=== PATIENT | male | born 1945 | race Caucasian/White ===

== ENCOUNTER 2020-06-21 16:05 | Outpatient (REF) | payer MEDICARE, MEDICAID, SELFPAY ==
--- NOTE | ~2020-06-21 | XR_ITS ---
EXAMINATION: XR TOES, LEFT CLINICAL INFORMATION: Non-thermal blister great toe. COMPARISON: None TECHNIQUE: 3 views of the left toes were obtained. FINDINGS: The toes are superimposed on the lateral view. There is no visible acute or healing fracture, dislocation, destructive process. There is no periostitis. No erosive changes. Mild degenerative changes present at the first MTP joint. There are atherosclerotic calcifications vasculature. XR/XR toe LT min 2V IMPRESSION: No fracture or destructive process. No periostitis.
== END 2020-06-21 16:06 | disposition home or self-care (01) ==
LOC: HO.HMGCX 16:05
PROVIDERS: PCP Internal Medicine; Visit Provider Nurse Practitioner Family
DX: E11.22 Type 2 diabetes mellitus with diabetic chronic kidney disease (principal); L08.9 Local infection of the skin and subcutaneous tissue, unspecified; S90.422A Blister (nonthermal), left great toe, initial encounter; X58.XXXA Exposure to other specified factors, initial encounter; N18.1 Chronic kidney disease, stage 1
CPT/HCPCS: 73660

== ENCOUNTER 2021-05-02 12:49 | Outpatient (REF) | payer OTHER, SELFPAY ==
--- NOTE | ~2021-05-02 | XR_ITS ---
EXAMINATION: XR FOOT, LEFT CLINICAL INFORMATION: Unspecified open wound COMPARISON: X-ray 06/21/2020 TECHNIQUE: AP, lateral, and oblique views of the left foot. FINDINGS: No evidence of acute fracture or dislocation. On the AP and oblique views, no erosive, destructive changes identified. No periostitis evident.. The toes are overlapping on the lateral projection. There is extensive vascular calcification. Tarsometatarsal alignment is maintained. Mild degeneration in some of the IP joints of the toes. Calcaneal spurring. XR/XR foot LT min 3V IMPRESSION: No radiographic evidence of acute fracture, erosive or destructive changes. No periosteal changes evident. If there is clinical concern for osteomyelitis, MRI would be more sensitive.
[2021-05-02 13:03] LABS: MANUAL DIFF FLAG NO
[2021-05-02 13:37] LABS: Basophils Absolute Auto 0.1 X10*3/uL (0.0-0.2); Basophils Percent Auto 1.6 % (0-2); Eosinophils Absolute Auto 1.1 X10*3/uL (0.0-0.4); Eosinophils Percent Auto 16.5 % (0-4); Hematocrit 34.7 % (42.0-52.0); Hemoglobin 10.7 g/dl (14.0-18.0); Imm Gran Abs Auto 0.03 X10*3/uL (0.00-0.03); Imm Gran Pct Auto 0.5 % (0.0-0.4); Lymphocytes Absolute Auto 1.1 X10*3/uL (1.2-4.9); Lymphocytes Percent Auto 17.4 % (20-40); Mean Corpuscular HGB Conc 30.8 g/dl (31.0-36.0); Mean Corpuscular Hemoglobin 31.1 pg (27.0-33.0); Mean Corpuscular Volume 100.9 fL (80.0-98.0); Monocytes Absolute Auto 0.3 X10*3/uL (0.1-1.2); Monocytes Percent Auto 5.3 % (2-11); Neutrophils Absolute Auto 3.8 x10*3/uL (2.0-8.3); Neutrophils Percent Auto 58.7 % (45-73); Platelet Count 222 X10*3/uL (160-400); Red Blood Count 3.44 X10*6/uL (4.60-5.80); Red Cell Distribution Width 16.9 % (11.0-16.0); White Blood Count 6.4 X10*3/uL (4.8-10.8)
[2021-05-02 14:25] LABS: Alanine Aminotransferase 13 U/L (0-40); Albumin Level 3.3 g/dL (3.5-5.0); Alkaline Phosphatase 44 U/L (39-117); Anion Gap 16 (12-20); Aspartate Amino Transferase 21 U/L (5-37); Bilirubin Total 0.7 mg/dL (0.0-1.0); Blood Urea Nitrogen 40 mg/dL (9-16); Calcium 9.1 mg/dL (8.4-10.2); Carbon Dioxide 31 mmol/L (22-29); Chloride 98 mmol/L (96-108); Cholesterol 139 mg/dL; Estimated Glomerular Filt Rate 10; Glucose Random 133 mg/dL (60-115); HDL Cholesterol 51 mg/dL; LDL Cholesterol Calculated 73 mg/dl; Potassium 4.9 mmol/L (3.3-5.1); Sodium 140 mmol/L (135-145); Total Protein 6.9 g/dL (6.5-8.0); Triglycerides 75 mg/dL
[2021-05-02 16:06] LABS: Creatinine Urine 55.83 mg/dL
[2021-05-06 11:46] LABS: Vitamin D 25-OH, D2 51 ng/mL; Vitamin D 25-OH, D3 6 ng/mL; Vitamin D 25-OH, Total 57 ng/mL (30-100)
== END 2021-05-02 12:50 | disposition home or self-care (01) ==
LOC: HO.XRAY 12:49
PROVIDERS: Absent Provider Internal Medicine; PCP Internal Medicine; Visit Provider Nurse Practitioner Family
DX: S91.302A Unspecified open wound, left foot, initial encounter (principal); E11.9 Type 2 diabetes mellitus without complications; E55.9 Vitamin D deficiency, unspecified; E78.5 Hyperlipidemia, unspecified
CPT/HCPCS: 36415; 73630; 80053; 80061; 82043; 82306; 85025

== ENCOUNTER 2021-05-11 08:47 | Outpatient (RCR) | payer OTHER, SELFPAY | END 2021-06-09 16:53 | disposition home or self-care (01) | LOC: HO.WCC 08:47 | PROVIDERS: PCP Internal Medicine; Visit Provider Surgery | DX: E11.621 Type 2 diabetes mellitus with foot ulcer (principal); L97.522 Non-pressure chronic ulcer of other part of left foot with fat layer exposed; L97.523 Non-pressure chronic ulcer of other part of left foot with necrosis of muscle; E11.22 Type 2 diabetes mellitus with diabetic chronic kidney disease; I12.0 Hypertensive chronic kidney disease with stage 5 chronic kidney disease or end stage renal disease; N18.6 End stage renal disease; I25.10 Atherosclerotic heart disease of native coronary artery without angina pectoris; I25.2 Old myocardial infarction; I63.9 Cerebral infarction, unspecified; E11.40 Type 2 diabetes mellitus with diabetic neuropathy, unspecified; Z95.1 Presence of aortocoronary bypass graft; Z79.4 Long term (current) use of insulin; Z79.84 Long term (current) use of oral hypoglycemic drugs; Z86.73 Personal history of transient ischemic attack (TIA), and cerebral infarction without residual deficits; Z99.2 Dependence on renal dialysis | CPT/HCPCS: 11042; 11043; 87071; 87077; 87205; 99212 ==

== ENCOUNTER 2021-06-01 12:05 | Inpatient (IN) | payer OTHER, SELFPAY ==
--- NOTE | ~2021-06-01 | US_ITS ---
EXAMINATION: Noninvasive assessment of the arteries of both lower extremities to include a PVR exam limited (1-2 levels) and AVELINO, bilateral. ? Mic Ayala M.D. CLINICAL INFORMATION: Nonhealing ulcer COMPARISON: None TECHNIQUE: The ankle/brachial indices of the distal posterior tibial and the dorsalis pedis arteries were obtained of the lower extremity arterial system bilaterally; along with pressures and pulse volume recordings at the ankle and duplex Doppler techniques of the common femoral, proximal femoral and proximal profunda arteries. The study was performed at rest. ? FINDINGS AT REST:? RIGHT LE. THE RIGHT ANKLE-BRACHIAL INDEX IS: 1.01 (higher of the DP/PT) >0.97-1.25 = normal - no significant arterial disease 0.75-0.96 = mild peripheral arterial disease 0.50-0.74 = moderate peripheral arterial disease <0.50 = severe peripheral arterial disease <0.30 = critical arterial disease 2. SEGMENTAL PRESSURES: Ankle: PT 2 2 DP 201 3. PVR WAVEFORMS: Ankle: Blunted waveform 4. DIRECT DUPLEX: Atherosclerotic plaque throughout the right lower extremity. Velocity measurements in the right lower extremity are within normal limits with biphasic flow visualized from the common femoral artery through the popliteal artery. There is monophasic flow in the posterior tibial artery. LEFT LE. THE LEFT ANKLE-BRACHIAL INDEX IS: 1.0 (higher of the DP/PT) >0.97-1.25 = normal - no significant arterial disease 0.75-0.96 = mild peripheral arterial disease 0.50-0.74 = moderate peripheral arterial disease <0.50 = severe peripheral arterial disease <0.30 = critical arterial disease 2. SEGMENTAL PRESSURES: Ankle: PT 200 DP not calculated 3. PVR WAVEFORMS: Ankle: Blunted waveform. 4. DIRECT DUPLEX: Atherosclerotic plaque throughout the left lower extremity. Velocity measurements in the left lower extremity are within normal limits. There is biphasic flow in the left lower extremity with the exception of the proximal SFA and popliteal artery and the posterior tibial artery which demonstrate monophasic flow. Incidental note of a 1.5 cm long axis lymph node in the left lower extremity. ? US/US arterial duplex LE BI IMPRESSION: Extensive atherosclerotic disease in the bilateral lower extremities. ABIs may be artificially elevated due to noncompressibility of the vessels. The PVR waveforms are blunted at the ankles.
--- NOTE | ~2021-06-01 | CT_ITS ---
EXAMINATION: CT LEFT FOOT. CLINICAL INFORMATION: Diabetic. Foot pain. Concern for osteomyelitis. COMPARISON: Plain film exam left foot 06/01/2021 TECHNIQUE: Axial images obtained through the ankle and foot. Coronal and sagittal reformatted images are performed at the CT scanner. No IV contrast. [This CT examination was performed using dose optimization techniques as appropriate, variously including the following: *Automated exposure control *Adjustment of mA and/or kV according to patient size (this includes techniques or standardized protocols for targeted exams where dose is matched to indication/reason for exam; i.e. extremities or head) *Use of iterative reconstruction technique] FINDINGS: No abscess. No focal fluid collection. No abnormal enhancement. No joint effusion. Bone and joints are normal. Small vessel calcifications in the ankle and foot. CT/CT foot LT wo con IMPRESSION: No acute abnormality. No radiographic evidence for osteomyelitis. No bone destruction. No abscess or fluid collection.
--- NOTE | ~2021-06-01 | NM_ITS ---
Lexiscan Myocardial perfusion study Indication: Preoperative cardiac evaluation, assess for coronary disease and ischemia. Technique: The patient was brought in for a Lexiscan perfusion study on 06/07/2021 and was injected 0.4 mg of Lexiscan intravenously. Within a minute of this injection 25 mCi of sestamibi was given intravenously. Images were obtained using the SPECT gamma camera interlaced with the gating device. Images were obtained in supine position. Resting perfusion study was performed on 06/06/2021. Patient was administered 25 mCi of sestamibi intravenously at rest. Images were then obtained in supine position. Total DLP 120mGy-cm. Images were processed with the software and compared side to side in short axis, horizontal long axis and vertical long axis views. Findings: Raw acquisition was reviewed. Arms by the patient's side. The stress perfusion study showed diminished tracer uptake in the basal part of septum but otherwise unremarkable. No significant change with CT attenuation correction. The gated study shows normal LV systolic function with calculated LVEF of 55%. LV cavity is normal in size with normal contractility. Resting study shows reduced tracer uptake in the basal septum but slightly better compared to stress acquisition. Gating at rest shows LVEF of 55%. The findings are consistent with basal septum with reversible as well as fixed defect. Otherwise no significant defects. NM/NM lizz perf SPECT rest & str Impression: 1. Myocardial perfusion imaging study shows basal septum with ischemia/infarct pattern. Otherwise normal perfusion. 2. Gated LVEF is 55% during stress and rest. 3. Transient ischemic dilatation not present. EKG component of the test reported separately.
--- NOTE | ~2021-06-01 | XR_ITS ---
EXAMINATION: XR CHEST CLINICAL INFORMATION: Shortness of breath. COMPARISON: Chest radiograph dated from 03/18/2013. TECHNIQUE: AP view of the chest was obtained. FINDINGS: Prominent cardiomediastinal silhouette with redemonstration of mediastinal surgical clips and sternotomy wires. New airspace opacities in the right lower lobe with an associated small right pleural effusion. There is also increased interstitial thickening since 03/18/2013. No pneumothorax. No acute osseous abnormalities. Decreased bony mineralization. Scattered vascular calcifications. XR/XR chest 1V IMPRESSION: Airspace opacities in the right lower lobe with a small right pleural effusion are nonspecific and could be associated with aspiration or pneumonia. Recommend follow-up after treatment to ensure resolution.
--- NOTE | ~2021-06-01 | XR_ITS ---
EXAMINATION: XR FOOT, LEFT CLINICAL INFORMATION: Diabetic ulcer with question of osteomyelitis COMPARISON: 05/02/2021 TECHNIQUE: AP, lateral, and oblique views of the left foot. FINDINGS: Compared to the prior study there is new loss of soft tissue adjacent to the head of the fifth metatarsal laterally corresponding most likely to the patient's area of ulceration. Other than this, there's been no interval change. Again noted are marked vascular calcifications. No significant degenerative changes are seen in or bony destructive lesions to suggest osteomyelitis. XR/XR foot LT min 3V IMPRESSION: New area of soft tissue loss adjacent to the head of the fifth metatarsal laterally, but no bone destruction.
[2021-06-01 13:26] VITALS: BP 120/68; PULSE 59; RESP 16; TEMP 36.7; O2SAT 93; BMI 27.0
[2021-06-01 16:14] VITALS: BP 161/63; PULSE 69; RESP 15; TEMP 36.4; O2SAT 95
--- NOTE | 2021-06-01 17:16 | ECG_ITS ---
Test Reason : sob Blood Pressure : / mmHG Vent. Rate : 073 BPM Atrial Rate : 073 BPM P-R Int : 136 ms QRS Dur : 102 ms QT Int : 394 ms P-R-T Axes : 005 -33 133 degrees QTc Int : 434 ms Normal sinus rhythm Left axis deviation Minimal voltage criteria for LVH, may be normal variant ( Crabtree product ) Inferior infarct , age undetermined Anterior infarct , age undetermined ST & T wave abnormality, consider lateral ischemia Abnormal ECG When compared to the previous EKG of 09 june 2004, QRS slghtly wder; LVH more prominent Referred By: Sari Byers Electronically Signed By:CLAIRE COFFEY
--- NOTE | 2021-06-01 17:20 | ED_ITS ---
HPI - General Adult General Chief complaint: General Medical Stated complaint: Foot wound-sent by wound care Time Seen by Provider: 06/01/21 16:39 Source: patient Mode of arrival: ambulatory Limitations: language barrier History of Present Illness HPI narrative: 75-year-old Polish-speaking male sent here from the wound center today for worsening left foot diabetic ulcer. Patient states his pain is an 8/10. P atient has a history of insulin-dependent diabetes and has end-stage renal disease on dialysis. Patient states the wound started about 6 weeks ago, and about a week ago the foot became more red. Two days ago the wound is worsening, it has a putrid smell. It is more painful, it is a sharp pain. Patient has not had any fevers. No abdominal pain, no nausea, vomiting, diarrhea. No dark tarry or bloody stool. No urinary urgency, frequency, or dysuria. No chest pain, patient is feeling mildly short of breath and satting 92% on room air. Patient goes to dialysis Saturday, Saturday, and Saturday, it [facility] in [place]. Patient did go to dialysis yesterday. Related Data Home Medications Medication Instructions Recorded Confirmed sevelamer carbonate 800 mg tablet 800 mg PO TID 01/22/20 05/02/21 amlodipine 5 mg tablet 2.5 mg PO DAILY 06/01/21 amlodipine 5 mg tablet 5 mg PO BEDTIME 06/01/21 aspirin 81 mg tablet,delayed 1 tab PO DAILY 06/01/21 release carvedilol 25 mg tablet 1 tab PO BID 06/01/21 ergocalciferol (vitamin D2) 1,250 1 cap PO QWEEK 06/01/21 mcg (50,000 unit) capsule (Vitamin D2) ursodiol 300 mg capsule 1 cap PO BID 06/01/21 Previous Rx's Medication Instructions Recorded tramadol 50 mg tablet 50 mg PO DAILY PRN 30 Days #30 tab 05/16/20 diabetic shoes #1 ea 08/15/20 losartan 25 mg tablet 25 mg PO DAILY 90 Days #90 tab 09/21/20 acetaminophen 650 mg 650 mg PO Q8H PRN 30 Days #90 tab 10/09/20 tablet,extended release ([employer] Arthritis Pain) atorvastatin 40 mg tablet 40 mg PO DAILY #30 tab 01/17/21 bumetanide 1 mg tablet 1 mg PO DAILY #30 tab 01/17/21 fenofibrate nanocrystallized 145 145 mg PO DAILY #30 tab 01/17/21 mg tablet ferrous sulfate 325 mg (65 mg 325 mg PO TID 30 Days #90 tab 01/17/21 iron) tablet trazodone 50 mg tablet 50 mg PO BEDTIME #30 tab 02/18/21 blood sugar diagnostic (FreeStyle #100 ea 04/04/21 Lite Strips) blood-glucose meter (FreeStyle #1 ea 04/04/21 Lite Meter) lancets 28 gauge (FreeStyle #100 ea 04/04/21 Lancets) miscellaneous medical supply #1 ea 04/04/21 (Blood Pressure Cuff) Gel mattress overlay #1 ea 04/17/21 insulin glargine U-300 conc 300 10 unit (0.0333 mL) SUBCUT BID #6 04/21/21 unit/mL (3 mL) subcutaneous pen ml blood pressure monitor #1 ea 05/02/21 vitamin B complex and vitamin C 1 cap PO DAILY 90 Days #90 cap 05/29/21 no.20-folic acid 1 mg capsule (Virt-Caps) Allergies Allergy/AdvReac Type Severity Reaction Status Date / Time lisinopril Allergy Intermediate hyperkalemi Verified 06/01/21 13:25 a lidocaine [From LIDOPRIL] Allergy Mild COUGH Verified 06/01/21 13:25 prilocaine [From LIDOPRIL] Allergy Mild COUGH Verified 06/01/21 13:25 canagliflozin [Invokana] AdvReac Mild back pain Verified 06/01/21 13:25 Hydralazine-HCTZ Allergy Unknown Unknown Uncoded 05/02/21 12:09 Review of Systems Constitutional: Constitutional: Denies body ache(s), Denies chills, Denies f atigue, Denies fever(s), Denies headache(s), Denies malaise and Denies weakness Eyes: Eyes: Denies diplopia ENT: Reports vertigo, Denies dizziness, Denies otalgia, Denies headache(s), Denies mouth pain and Denies sore throat Cardiovascular: Cardiovascular: Denies chest pain, Denies syncope, Denies lightheadedness, Denies palpitations and Reports dyspnea Respiratory: Respiratory: Denies chest congestion, Denies cough and Reports dyspnea Gastrointestinal: Gastrointestinal: Denies abdominal pain, Denies hematochezia, Denies constipation, Denies diarrhea, Denies nausea and Denies vomiting Musculoskeletal: Comments: Pain in left foot Integumentary/Breasts: Skin/Breast: Reports change in pigmentation, Reports erythema, Reports skin pain, Reports skin swelling, Reports skin ulcer and Reports wounds Neurologic: Denies confusion, Reports vertigo, Denies dizziness, Denies syncope, Denies headache(s) and Denies weakness Psychiatric: Psychiatric: Denies anxiety, Denies confusion and Denies depression Endocrine: Endocrine: Denies fatigue and Denies palpitations [facility] Past Medical History Medical History Anemia in chronic kidney disease Diabetes Diabetes mellitus, with long-term current use of insulin Diarrhea End-stage renal disease on hemodialysis High cholesterol Hypertension Microalbuminuria Mixed hyperlipidemia Surgical History History of eye surgery History of laminectomy History of surgery History of surgery on arm S/P CABG x 4 Family History Family History Father Myocardial infarction Mother No problems noted. Social History Social History Housing: Apartment Alcohol intake: never Patient Tobacco Use Status: Never used Tobacco e-Cigarette/Vaping Use: Never Used Second Hand Smoke Exposure: No Advance Directives: No Advance Directives Information Provided: Yes service: No Current occupational status: disabled Physical Exam ED Vital Signs: Vital Signs - 24 hr 06/01/21 13:26 06/01/21 16:14 06/01/21 18:37 Temperature 98.1 F 97.6 F 99.8 F Pulse Rate 59 69 75 Respiratory Rate 16 15 19 Blood Pressure 120/68 161/63 H 171/64 H Pulse Oximetry 93 95 98 06/01/21 20:42 Temperature 99.0 F Pulse Rate 70 Respiratory Rate 18 Blood Pressure 137/62 Pulse Oximetry 94 BMI result Body Mass Index 27.0 Const General: alert, awake, ill appearing chronically and tired appearing; No confusion Orientation/consciousness: patient oriented x3 and No confusion Limitations: language barrier HENMT Head: Yes normal to inspection, Yes No palpable skull fracture present, Yes normocephalic and Yes atraumatic Ears: hearing grossly normal bilaterally General nose exam: Normal external nose present Mouth: Normal oral and palatal mucosa present Throat: Yes posterior oropharynx normal Eyes Pupils: Equal, round and reactive pupils present EOM: EOMs intact bilaterally Neck Neck: Yes normal visual inspection, Yes full ROM, Yes no lymphadenopathy, Yes no meningeal signs, Yes trachea midline and Yes supple Resp Other: poor inspiratory effort Effort & Inspection: normal respiratory effort and able to speak in complete sentences Auscultation: clear to auscultation bilaterally, no crackles, no rales, no rhonchi and no wheezes Cardio Rate: regular rate Rhythm: regular rhythm GI Inspection: Yes normal to inspection Palpation (GI): Soft to palpation, nontender, no guarding and not rigid Percussion: Yes normal to percussion Auscultation: normal bowel sounds General: Yes no CVA tenderness Back/Spine/Pelvis Back: no CVA tenderness Skin Wounds: wounds noted ulceration left lateral 5th toe Neuro General: patient oriented x3, no meningeal signs and No confusion Cranial nerves: Yes Equal, round and reactive pupils present Extrem Left lower extremity: normal capillary refill, edema and foot Details: abnormal to inspection Details: erythematous, tenderness Location: of the dorsal foot, toes with normal ROM, warmth and vascular exam Details: normal capillary refill; Negative for no crepitus Psych Appearance: grossly normal Mental Status: mental status grossly normal Speech and movement: Normal speech and movement present Affect: normal affect Attitude: cooperative Thought process: Normal thought process present Course Course Course Narrative: 75-year-old Polish speaking male presents with worsening foot ulcer. Patient was sent to the emergency room for evaluation after he went to the Wound Care Center today. On exam, patient has necrotic foul smelling diabetic foot ulcer on lateral left foot just inferior to his 5th toe. During my exam, patient says he feels short of breath, and has oxygen saturation at 92%. XR/XR foot LT min 3V IMPRESSION: New area of soft tissue loss adjacent to the head of the fifth metatarsal laterally, but no bone destruction. XR/XR chest 1V IMPRESSION: Airspace opacities in the right lower lobe with a small right pleural effusion are nonspecific and could be associated with aspiration or pneumonia. Recommend follow-up after treatment to ensure resolution. Patient has elevated white blood cell count at 13, has elevated inflammatory markers;, ESR is 48, CRP 13.38. Patient's creatinine is 4.71, his creatinine on May 02 was 5.4. Blood glucose 251. Troponin 51.9. Lactic 1.0 Suspect elevated troponin is due to end-stage renal disease. Patient has no chest pain. No ekg ischemia Started vancomycin and ceftriaxone, obtained wound called and obtained a wound culture. Reevaluation(s) Reevaluation #1: Consulted surgery and hospitalist. Started Flagyl. Ordered CT foot and repeat trop. Pt admitted here. Medical Decision Making Lab Data Result diagrams: 06/01/21 18:32 06/01/21 18:29 Labs: Lab Results 06/01/21 06/01/21 06/01/21 Range/Units 18:24 18:29 18:29 WBC (4.8-10.8) X10*3/uL RBC (4.60-5.80) X10*6/uL Hgb (14.0-18.0) g/dl Hct (42.0-52.0) % MCV (80.0-98.0) fL MCH (27.0-33.0) pg MCHC (31.0-36.0) g/dl RDW (11.0-16.0) % Plt Count (160-400) X10*3/uL MPV (9.4-12.4) fL Immature Gran % (Auto) (0.0-0.4) % Neut % (Auto) (45-73) % Lymph % (Auto) (20-40) % [place] % (Auto) (2-11) % Eos % (Auto) (0-4) % Baso % (Auto) (0-2) % Lymph # (Auto) (1.2-4.9) X10*3/uL [place] # (Auto) (0.1-1.2) X10*3/uL Eos # (Auto) (0.0-0.4) X10*3/uL Baso # (Auto) (0.0-0.2) X10*3/uL Abs Immat Gran (auto) (0.00-0.03) X10*3/uL Absolute Neuts (auto) (2.0-8.3) x10*3/uL Absolute Nucleated RBC (0.0-0.012) X10*3/uL Nucleated RBC % (auto) (0.0-0.2) /100WBC Smear Tech's Comments ESR (0-15) MM/HR Sodium 134 L (135-145) mmol/L Potassium 4.3 (3.3-5.1) mmol/L Chloride 96 (96-108) mmol/L Carbon Dioxide 28 (22-29) mmol/L Anion Gap 14 (12-20) BUN 40 H (9-16) mg/dL Creatinine 4.71 H* (0.5-1.4) mg/dL Estim Creat Clear Calc 11.9 Estimated GFR 12 Random Glucose 251 H D (60-115) mg/dL Lactic Acid 1.0 (0.5-2.0) mmol/L Calcium 8.9 (8.4-10.2) mg/dL Total Bilirubin 0.6 (0.0-1.0) mg/dL AST 20 (5-37) U/L ALT 16 (0-40) U/L Alkaline Phosphatase 50 (39-117) U/L Troponin I High Sens (<3.5-35.0) ng/L C-Reactive Protein 13.38 H (< or = 0.50) mg/dL Total Protein 6.8 (6.5-8.0) g/dL Albumin 3.3 L (3.5-5.0) g/dL COVID-19 (ZANE) Negative (Negative) COVID-19 Clin Com See Note 06/01/21 06/01/21 06/01/21 Range/Units 18:29 18:32 18:32 WBC 13.0 H (4.8-10.8) X10*3/uL RBC 3.38 L (4.60-5.80) X10*6/uL Hgb 10.2 L (14.0-18.0) g/dl Hct 32.4 L (42.0-52.0) % MCV 95.9 (80.0-98.0) fL MCH 30.2 (27.0-33.0) pg MCHC 31.5 (31.0-36.0) g/dl RDW 15.2 (11.0-16.0) % Plt Count 208 (160-400) X10*3/uL MPV 12.3 (9.4-12.4) fL Immature Gran % (Auto) 1.0 H (0.0-0.4) % Neut % (Auto) 90.4 H (45-73) % Lymph % (Auto) 3.1 L (20-40) % [place] % (Auto) 5.0 (2-11) % Eos % (Auto) 0.3 (0-4) % Baso % (Auto) 0.2 (0-2) % Lymph # (Auto) 0.4 L (1.2-4.9) X10*3/uL [place] # (Auto) 0.7 (0.1-1.2) X10*3/uL Eos # (Auto) 0.0 (0.0-0.4) X10*3/uL Baso # (Auto) 0.0 (0.0-0.2) X10*3/uL Abs Immat Gran (auto) 0.13 H (0.00-0.03) X10*3/uL Absolute Neuts (auto) 11.8 H (2.0-8.3) x10*3/uL Absolute Nucleated RBC 0.000 (0.0-0.012) X10*3/uL Nucleated RBC % (auto) 0.0 (0.0-0.2) /100WBC Smear Tech's Comments VERIFIED ESR 48 H (0-15) MM/HR Sodium (135-145) mmol/L Potassium (3.3-5.1) mmol/L Chloride (96-108) mmol/L Carbon Dioxide (22-29) mmol/L Anion Gap (12-20) BUN (9-16) mg/dL Creatinine (0.5-1.4) mg/dL Estim Creat Clear Calc Estimated GFR Random Glucose (60-115) mg/dL Lactic Acid (0.5-2.0) mmol/L Calcium (8.4-10.2) mg/dL Total Bilirubin (0.0-1.0) mg/dL AST (5-37) U/L ALT (0-40) U/L Alkaline Phosphatase (39-117) U/L Troponin I High Sens 51.9 H (<3.5-35.0) ng/L C-Reactive Protein (< or = 0.50) mg/dL Total Protein (6.5-8.0) g/dL Albumin (3.5-5.0) g/dL COVID-19 (ZANE) (Negative) COVID-19 Clin Com ECG Data Interpretation: EKG shows sinus at a rate of 73, NC interval 136, QRS 102, QTC 434, right- sided axis, no T-wave abnormalities, question ST-elevation and sidngle rlead V3, discussed cresencio, who does not think this is ischemic Discharge Plan Discharge Patient Disposition: Admitted As Inpatient
--- NOTE | 2021-06-01 18:23 | PC.NURSE ---
difficult lab draw and it took a couple attempts by pct's
[2021-06-01] MEDS: cefTRIAXone sodium 1 GM in 0.9 % Sodium Chloride 50 ML IV (18:36)
[2021-06-01 18:37] VITALS: BP 171/64; PULSE 75; RESP 19; TEMP 37.7; O2SAT 98
[2021-06-01 18:45] LABS: Basophils Percent Auto 0.2 % (0-2); Eosinophils Percent Auto 0.3 % (0-4); Hematocrit 32.4 % (42.0-52.0); Hemoglobin 10.2 g/dl (14.0-18.0); Imm Gran Abs Auto 0.13 X10*3/uL (0.00-0.03); Lymphocytes Absolute Auto 0.4 X10*3/uL (1.2-4.9); Lymphocytes Percent Auto 3.1 % (20-40); MANUAL DIFF FLAG SCAN; Mean Corpuscular HGB Conc 31.5 g/dl (31.0-36.0); Mean Corpuscular Hemoglobin 30.2 pg (27.0-33.0); Mean Corpuscular Volume 95.9 fL (80.0-98.0); Mean Platelet Volume 12.3 fL (9.4-12.4); Monocytes Absolute Auto 0.7 X10*3/uL (0.1-1.2); Neutrophils Absolute Auto 11.8 x10*3/uL (2.0-8.3); Neutrophils Percent Auto 90.4 % (45-73); Platelet Count 208 X10*3/uL (160-400); Red Blood Count 3.38 X10*6/uL (4.60-5.80); Red Cell Distribution Width 15.2 % (11.0-16.0); SCAN SMEAR FLAG 1
[2021-06-01 18:53] LABS: COVID-19 Test Negative (Negative)
[2021-06-01 19:00] LABS: Troponin-I High Sensitivity 51.9 ng/L (<3.5-35.0)
[2021-06-01 19:01] LABS: Alanine Aminotransferase 16 U/L (0-40); Albumin Level 3.3 g/dL (3.5-5.0); Alkaline Phosphatase 50 U/L (39-117); Anion Gap 14 (12-20); Aspartate Amino Transferase 20 U/L (5-37); Bilirubin Total 0.6 mg/dL (0.0-1.0); Blood Urea Nitrogen 40 mg/dL (9-16); C Reactive Protein 13.38 mg/dL (< or = 0.50); Calcium 8.9 mg/dL (8.4-10.2); Carbon Dioxide 28 mmol/L (22-29); Chloride 96 mmol/L (96-108); Creatinine Clr Calc Pharmacy 11.9; Estimated Glomerular Filt Rate 12; Glucose Random 251 mg/dL (60-115); Potassium 4.3 mmol/L (3.3-5.1); Sodium 134 mmol/L (135-145); Total Protein 6.8 g/dL (6.5-8.0)
[2021-06-01 19:07] LABS: SLIDE REVIEW VERIFIED
[2021-06-01 19:14] LABS: Erythrocyte Sedimentation Rate 48 MM/HR (0-15)
[2021-06-01] MEDS: vancomycin HCL 1,000 MG in 0.9 % Sodium Chloride 250 ML 270 MG IV (19:42)
[2021-06-01 20:42] VITALS: BP 137/62; PULSE 70; RESP 18; TEMP 37.2; O2SAT 94
[2021-06-01] MEDS: metroNIDAZOLE/NS 500 MG/100 ML PIGGYBACK 100 MG IV (21:33)
--- NOTE | 2021-06-01 22:12 | PHA.MEDREC ---
Pharmacy Consult ? Medication Reconciliation Pharmacy has completed the medication reconciliation. Patient is no longer on trazodone, and takes tramadol 2-3 times a day. Patient is a dialysis patient and gets it MWF. cONTACT IS Brittney at [phone]
[2021-06-01 23:16] VITALS: BP 154/57; PULSE 69; RESP 18; O2SAT 95
--- NOTE | 2021-06-01 23:50 | P.HPHOSP_ITS ---
History of Present Illness Date of Service: 06/01/21 Chief Complaint: Left foot ulcer 75-year-old old male with a past medical history of hypertension, hyperlipidemia, diabetes, diabetic foot infection, CAD status post CABG, ESRD on hemodialysis; anemia of chronic disease, presented to the hospital today with a chief complaint of diabetic foot infection. Patient reports that he has he has diabetic foot wound on the left foot; has been following with the wound clinic; over the past 2 weeks is has been gradual ly worsening; went to the wound clinic today and was sent here for further evaluation/IV antibiotics. Also mentioned that over the past couple days he has been having increased redness and also noted mild dark discoloration on the dorsum of the foot; denies any fevers at home. Denies any chest pain or palpitations. Mentions that his ambulation is limited secondary to the pain when he tries to walk on the foot. Denies any fever chills cough. Denies any GI symptoms. Denies any chest pain or palpitations. Review of all other systems is negative except mentioned above ER course: Per ER team patient noted to have diabetic foot infection, areas of necrosis noted; notified general surgery Dr. Santoyo is-suggested admission to the medicine service; CT of the foot showed no evidence of osteomyelitis/bone destruction/fluid collection/a. [facility] Medical History Anemia in chronic kidney disease Diabetes Diabetes mellitus, with long-term current use of insulin Diarrhea End-stage renal disease on hemodialysis High cholesterol Hypertension Microalbuminuria Mixed hyperlipidemia Family History Father Myocardial infarction Mother No problems noted. Surgical History History of eye surgery History of laminectomy History of surgery History of surgery on arm S/P CABG x 4 Social History Housing: Apartment Alcohol intake: never Patient Tobacco Use Status: Never used Tobacco e-Cigarette/Vaping Use: Never Used Second Hand Smoke Exposure: No Advance Directives: No Advance Directives Information Provided: Yes service: No Current occupational status: disabled Meds Allergies Allergy/AdvReac Type Severity Reaction Status Date / Time lisinopril Allergy Intermediate hyperkalemi Verified 06/01/21 13:25 a lidocaine [From LIDOPRIL] Allergy Mild COUGH Verified 06/01/21 13:25 prilocaine [From LIDOPRIL] Allergy Mild COUGH Verified 06/01/21 13:25 canagliflozin [Invokana] AdvReac Mild back pain Verified 06/01/21 13:25 Hydralazine-HCTZ Allergy Unknown Unknown Uncoded 05/02/21 12:09 Active Medications: Current Medications Acetaminophen (Acetaminophen 325 Mg Tablet) 650 mg PO Q6H PRN PRN Reason: Pain, Mild (Pain Scale 1-3) Amlodipine Besylate (Amlodipine Besylate 2.5 Mg Tablet) 2.5 mg PO DAILY HANH; Protocol Amlodipine Besylate (Amlodipine Besylate 5 Mg Tablet) 5 mg PO BEDTIME HANH; Protocol Aspirin (Aspirin Enteric Coated 81 Mg Tablet.Dr) 81 mg PO DAILY HANH Atorvastatin Calcium (Atorvastatin Calcium 40 Mg Tablet) 40 mg PO BEDTIME HANH Bumetanide (Bumetanide 1 Mg Tablet) 1 mg PO DAILY HANH; Protocol Carvedilol (Carvedilol 25 Mg Tablet) 25 mg PO BID HANH; Protocol Heparin Sodium (Porcine) (Heparin Sodium,Porcine 5,000 Unit/Ml Vial) 5,000 unit SUBCUT Q8H HANH Piperacillin Sod/Tazobactam (Sod 2.25 gm/ Sodium Chloride) 50 mls @ 100 mls/hr IV Q8H HANH Vancomycin HCl 1,000 mg/ (Sodium Chloride) 270 mls @ 270 mls/hr IV DAILY [facility] Losartan Potassium (Losartan Potassium 25 Mg Tablet) 25 mg PO DAILY HANH; Protocol Melatonin (Melatonin 3 Mg Tablet) 6 mg PO BEDTIME PRN PRN Reason: Insomnia Multivitamins/Vitamin C (Multivitamin Tablet) 1 tab PO DAILY [facility] Pharmacy Consult (Consult Rx Perform Med Rec) 1 each MISCELLANE ONCE PRN PRN Reason: Consult order Pharmacy Consult (Consult Rx Vancomycin Dosing) 1 each MISCELLANE DAILY PRN PRN Reason: Consult order Senna (Sennosides 8.6 Mg Tablet) 17.2 mg PO BEDTIME PRN PRN Reason: Constipation Sevelamer Carbonate (Sevelamer Carbonate Tablet 800 Mg Tablet) 800 mg PO TID HANH Sodium Chloride (0.9 % Sodium Chloride Flush 3 Ml Syringe) 3 ml IVFLUSH QSHIFT HANH Temazepam (Temazepam 15 Mg Capsule) 15 mg PO BEDTIME PRN PRN Reason: Insomnia Ursodiol (Ursodiol 300 Mg Capsule) 300 mg PO BID [facility] Home Medications Medication Instructions Recorded Confirmed Last Taken Type sevelamer carbonate 800 mg tablet 800 mg PO TID 01/22/20 06/01/21 06/01/21 History amlodipine 5 mg tablet 2.5 mg PO DAILY 06/01/21 06/01/21 06/01/21 History amlodipine 5 mg tablet 5 mg PO BEDTIME 06/01/21 06/01/21 05/31/21 History aspirin 81 mg tablet,delayed 1 tab PO DAILY 06/01/21 06/01/21 06/01/21 History release atorvastatin 40 mg tablet 40 mg PO BEDTIME 06/01/21 06/01/21 05/31/21 History carvedilol 25 mg tablet 1 tab PO BID 06/01/21 06/01/21 06/01/21 History ergocalciferol (vitamin D2) 1,250 1 cap PO FR 06/01/21 06/01/21 06/01/21 History mcg (50,000 unit) capsule (Vitamin D2) tramadol 50 mg tablet 50 mg PO BID-TID PRN 06/01/21 06/01/21 06/01/21 History ursodiol 300 mg capsule 1 cap PO BID 06/01/21 06/01/21 06/01/21 History Physical Exam Vital Signs and Narrative: Vital Signs: Last Vital Signs Temp 99.0 F 06/01/21 20:42 Pulse 69 06/01/21 23:16 Resp 18 06/01/21 23:16 BP 154/57 H 06/01/21 23:16 Pulse Ox 95 06/01/21 23:16 BMI result Body Mass Index 27.0 Gen: Appears be in no acute distress HEENT: NCAT, Moist mucosa. Pulmonary: Vesicular breath sounds, fair air entry CVS: Normal S1-S2 Abdomen: BS+, Soft, Nontender Extremities: Warm well perfused; noted to have diabetic foot ulcer on the lateral part of the left foot involving 5th toe, noted areas of dark eschar tissue; also had dark discoloration on the dorsum of the foot at the base of 3rd and 4th toes. No crepitus noted. Erythema extended up to the ankle Neuro: Alert and awake. Results Labs CBC and Chem 7: 06/01/21 18:32 06/01/21 18:29 Labs: Laboratory Results - last 24 hr 06/01/21 06/01/21 06/01/21 18:24 18:29 18:29 MCV MCH MCHC RDW Plt Count MPV Immature Gran % (Auto) Neut % (Auto) Lymph % (Auto) [place] % (Auto) Eos % (Auto) Baso % (Auto) Lymph # (Auto) [place] # (Auto) Eos # (Auto) Baso # (Auto) Abs Immat Gran (auto) Absolute Neuts (auto) Absolute Nucleated RBC Nucleated RBC % (auto) Smear Tech's Comments ESR Anion Gap 14 Estim Creat Clear Calc 11.9 Estimated GFR 12 Random Glucose 251 H D Lactic Acid 1.0 Calcium 8.9 Total Bilirubin 0.6 AST 20 ALT 16 Alkaline Phosphatase 50 Troponin I High Sens C-Reactive Protein 13.38 H Total Protein 6.8 Albumin 3.3 L COVID-19 (ZANE) Negative COVID-19 Clin Com See Note 06/01/21 06/01/21 06/01/21 18:29 18:32 18:32 MCV 95.9 MCH 30.2 MCHC 31.5 RDW 15.2 Plt Count 208 MPV 12.3 Immature Gran % (Auto) 1.0 H Neut % (Auto) 90.4 H Lymph % (Auto) 3.1 L [place] % (Auto) 5.0 Eos % (Auto) 0.3 Baso % (Auto) 0.2 Lymph # (Auto) 0.4 L [place] # (Auto) 0.7 Eos # (Auto) 0.0 Baso # (Auto) 0.0 Abs Immat Gran (auto) 0.13 H Absolute Neuts (auto) 11.8 H Absolute Nucleated RBC 0.000 Nucleated RBC % (auto) 0.0 Smear Tech's Comments VERIFIED ESR 48 H Anion Gap Estim Creat Clear Calc Estimated GFR Random Glucose Lactic Acid Calcium Total Bilirubin AST ALT Alkaline Phosphatase Troponin I High Sens 51.9 H C-Reactive Protein Total Protein Albumin COVID-19 (ZANE) COVID-19 Clin Com Imaging Radiologist's Impressions: Impressions Chest X-Ray 06/01/21 17:48 IMPRESSION: Airspace opacities in the right lower lobe with a small right pleural effusion are nonspecific and could be associated with aspiration or pneumonia. Recommend follow-up after treatment to ensure resolution. Foot X-Ray 06/01/21 17:48 IMPRESSION: New area of soft tissue loss adjacent to the head of the fifth metatarsal laterally, but no bone destruction. Foot CT 06/01/21 21:56 IMPRESSION: No acute abnormality. No radiographic evidence for osteomyelitis. No bone destruction. No abscess or fluid collection. Assessment and Plan (1) End-stage renal disease on hemodialysis: Status: Acute (2) Diabetic foot infection: Status: Acute Plan 75-year-old old male with a past medical history of hypertension, hyperlipidemia, diabetes, diabetic foot infection, CAD status post CABG, ESRD on hemodialysis; anemia of chronic disease, presented to the hospital today with a chief complaint of diabetic foot infection. Diabetic foot infection/necrosis: Patient has been following with the wound clinic-prior wound clinic notes did report areas of necrosis in the diabetic foot wound on the lateral border of the left foot. Neck Continue IV vancomycin and Zosyn-spoke to pharmacy to renally dose the antibiotics. Id consult General surgery aware of the patient History of diabetes: Insulin sliding scale History of ESRD: Patient on hemodialysis. Continue home sevelamer, Bumex. Nephrology consult. History of hypertension/hyperlipidemia: Continue home amlodipine, losartan, statin. DVT prophylaxis: Subcu heparin Code status: Full code Quality Stroke Does the patient have a stroke diagnosis?: No VTE Prior VTE?: No VTE Risk Level:: Medical - moderate - high VTE Device Contraindication: Treatment Not Indicated VTE Drug Contraindication: N/A - Med Ordered
[2021-06-01] MEDS: 0.9 % Sodium Chloride Flush 3 ML SYRINGE IVFLUSH (23:53)
[2021-06-02] MEDS: Piperacillin Sodium/Tazobactam 2.25 GM in 0.9 % Sodium Chloride 50 ML IV ×2 (00:18→08:53)
[2021-06-02] MEDS: Heparin Sodium,Porcine 5,000 UNIT/ML VIAL 5000 UNIT SUBCUT ×2 (00:18→21:18)
[2021-06-02 04:24] VITALS: BP 167/71; PULSE 66; RESP 16; TEMP 36.8; O2SAT 88
[2021-06-02 04:26] VITALS: O2SAT 96
[2021-06-02 06:24] LABS: MANUAL DIFF FLAG NO
[2021-06-02 06:44] LABS: Anion Gap 18 (12-20); Blood Urea Nitrogen 46 mg/dL (9-16); Calcium 8.8 mg/dL (8.4-10.2); Carbon Dioxide 23 mmol/L (22-29); Chloride 99 mmol/L (96-108); Creatinine Clr Calc Pharmacy 10.8; Estimated Glomerular Filt Rate 11; Glucose Random 151 mg/dL (60-115); Potassium 4.5 mmol/L (3.3-5.1); Sodium 135 mmol/L (135-145)
[2021-06-02 06:46] LABS: Basophils Percent Auto 0.4 % (0-2); Eosinophils Absolute Auto 0.1 X10*3/uL (0.0-0.4); Eosinophils Percent Auto 0.6 % (0-4); Hematocrit 31.1 % (42.0-52.0); Hemoglobin 10.1 g/dl (14.0-18.0); Imm Gran Abs Auto 0.06 X10*3/uL (0.00-0.03); Imm Gran Pct Auto 0.6 % (0.0-0.4); Lymphocytes Absolute Auto 0.7 X10*3/uL (1.2-4.9); Mean Corpuscular HGB Conc 32.5 g/dl (31.0-36.0); Mean Corpuscular Hemoglobin 31.2 pg (27.0-33.0); Mean Platelet Volume 12.1 fL (9.4-12.4); Monocytes Absolute Auto 0.6 X10*3/uL (0.1-1.2); Monocytes Percent Auto 6.2 % (2-11); Neutrophils Absolute Auto 8.7 x10*3/uL (2.0-8.3); Neutrophils Percent Auto 85.2 % (45-73); Platelet Count 152 X10*3/uL (160-400); Red Blood Count 3.24 X10*6/uL (4.60-5.80); Red Cell Distribution Width 15.5 % (11.0-16.0); White Blood Count 10.2 X10*3/uL (4.8-10.8)
[2021-06-02 07:14] LABS: Glucose, Whole Blood 133 mg/dL (60-115)
[2021-06-02 07:53] VITALS: BP 165/79; PULSE 67; RESP 18; O2SAT 96
--- NOTE | 2021-06-02 08:13 | PM.CNGS ---
History of Present Illness Consult details Consult date: 06/02/21 Narrative: 75-year-old male, with diabetes, referred to me because of left foot ulcer with signs of necrosis. The [facility]. He was sent to the ER yesterday because of what was described as worsening infection of the left foot. The patient denies significant pain on the area. He has end-stage renal disease and is on hemodialysis as well. There was no suggestion of any fever or chills. Review of Systems Constitutional: Constitutional: Denies chills and Denies fever(s) Cardiovascular: Cardiovascular: Denies chest pain, Denies dyspnea and Denies dyspnea on exertion Respiratory: Respiratory: Denies cough, Denies dyspnea and Denies dyspnea on exertion Gastrointestinal: Gastrointestinal: Denies hematochezia and Denies change in bowel habits Genitourinary: Genitourinary: Denies hematuria and Denies difficulty urinating Musculoskeletal: Musculoskeletal: Denies back pain and Denies limited range of motion Neurologic: Denies focal weakness and Denies convulsions Psychiatric: Psychiatric: Denies depression and Denies mood swings PMFSH Past Medical History Medical History Anemia in chronic kidney disease Diabetes Diabetes mellitus, with long-term current use of insulin Diarrhea End-stage renal disease on hemodialysis High cholesterol Hypertension Microalbuminuria Mixed hyperlipidemia Family History Family History Father Myocardial infarction Mother No problems noted. Surgical History Surgical History History of eye surgery History of laminectomy History of surgery History of surgery on arm S/P CABG x 4 Social History Social History Housing: Apartment Alcohol intake: never Patient Tobacco Use Status: Never used Tobacco e-Cigarette/Vaping Use: Never Used Second Hand Smoke Exposure: No service: No Current occupational status: retired and disabled Meds Allergies Allergy/AdvReac Type Severity Reaction Status Date / Time lisinopril Allergy Intermediate hyperkalemi Verified 06/01/21 13:25 a lidocaine [From LIDOPRIL] Allergy Mild COUGH Verified 06/01/21 13:25 prilocaine [From LIDOPRIL] Allergy Mild COUGH Verified 06/01/21 13:25 canagliflozin [Invokana] AdvReac Mild back pain Verified 06/01/21 13:25 Hydralazine-HCTZ Allergy Unknown Unknown Uncoded 05/02/21 12:09 Active Medications: Current Medications Acetaminophen (Acetaminophen 325 Mg Tablet) 650 mg PO Q6H PRN PRN Reason: Pain, Mild (Pain Scale 1-3) Amlodipine Besylate (Amlodipine Besylate 2.5 Mg Tablet) 2.5 mg PO DAILY [facility]; Protocol Amlodipine Besylate (Amlodipine Besylate 5 Mg Tablet) 5 mg PO BEDTIME [facility]; Protocol Aspirin (Aspirin Enteric Coated 81 Mg Tablet.Dr) 81 mg PO DAILY [facility] Atorvastatin Calcium (Atorvastatin Calcium 40 Mg Tablet) 40 mg PO BEDTIME [facility] Bumetanide (Bumetanide 1 Mg Tablet) 1 mg PO DAILY [facility]; Protocol Carvedilol (Carvedilol 25 Mg Tablet) 25 mg PO BID [facility]; Protocol Heparin Sodium (Porcine) (Heparin Sodium,Porcine 5,000 Unit/Ml Vial) 5,000 unit SUBCUT Q8H [facility] Last Admin: 06/02/21 00:18 Dose: 5,000 unit Documented by: Piperacillin Sod/Tazobactam (Sod 2.25 gm/ Sodium Chloride) 50 mls @ 100 mls/hr IV Q8H [facility] Last Infusion: 06/02/21 00:51 Dose: Infused Documented by: Vancomycin HCl 1,000 mg/ (Sodium Chloride) 270 mls @ 270 mls/hr IV DAILY [facility] Losartan Potassium (Losartan Potassium 25 Mg Tablet) 25 mg PO DAILY [facility]; Protocol Melatonin (Melatonin 3 Mg Tablet) 6 mg PO BEDTIME PRN PRN Reason: Insomnia Multivitamins/Vitamin C (Multivitamin Tablet) 1 tab PO DAILY [facility] Pharmacy Consult (Consult Rx Perform Med Rec) 1 each MISCELLANE ONCE PRN PRN Reason: Consult order Pharmacy Consult (Consult Rx Vancomycin Dosing) 1 each MISCELLANE DAILY PRN PRN Reason: Consult order Senna (Sennosides 8.6 Mg Tablet) 17.2 mg PO BEDTIME PRN PRN Reason: Constipation Sevelamer Carbonate (Sevelamer Carbonate Tablet 800 Mg Tablet) 800 mg PO TIDWM [facility] Sodium Chloride (0.9 % Sodium Chloride Flush 3 Ml Syringe) 3 ml IVFLUSH QSHIFT [facility] Last Admin: 06/01/21 23:53 Dose: 3 ml Documented by: Temazepam (Temazepam 15 Mg Capsule) 15 mg PO BEDTIME PRN PRN Reason: Insomnia Ursodiol (Ursodiol 300 Mg Capsule) 300 mg PO BID [facility] Home Medications Medication Instructions Recorded Confirmed Last Taken Type sevelamer carbonate 800 mg tablet 800 mg PO TID 01/22/20 06/01/21 06/01/21 History amlodipine 5 mg tablet 2.5 mg PO DAILY 06/01/21 06/01/21 06/01/21 History amlodipine 5 mg tablet 5 mg PO BEDTIME 06/01/21 06/01/21 05/31/21 History aspirin 81 mg tablet,delayed 1 tab PO DAILY 06/01/21 06/01/21 06/01/21 History release atorvastatin 40 mg tablet 40 mg PO BEDTIME 06/01/21 06/01/21 05/31/21 History carvedilol 25 mg tablet 1 tab PO BID 06/01/21 06/01/21 06/01/21 History ergocalciferol (vitamin D2) 1,250 1 cap PO FR 06/01/21 06/01/21 06/01/21 History mcg (50,000 unit) capsule (Vitamin D2) tramadol 50 mg tablet 50 mg PO BID-TID PRN 06/01/21 06/01/21 06/01/21 History ursodiol 300 mg capsule 1 cap PO BID 06/01/21 06/01/21 06/01/21 History Physical Exam Vital Signs: Vital Signs: Last Vital Signs Temp 98.2 F 06/02/21 04:24 Pulse 67 06/02/21 07:53 Resp 18 06/02/21 07:53 BP 165/79 H 06/02/21 07:53 Pulse Ox 96 06/02/21 07:53 BMI result Body Mass Index 27.0 Const: Other: Swedish-speaking General: comfortable and no acute distress Orientation/consciousness: patient oriented x3 Neck: Neck: Yes no lymphadenopathy Resp: Auscultation: clear to auscultation bilaterally Cardio: Rhythm: regular rhythm GI: Palpation (GI): Soft to palpation, nontender and no guarding Neuro: General: patient oriented x3 Extrem: Other: Left foot with redness diffusely, dark discoloration on the dorsum just proximal to the for 5th and 4th toes, there is the ulcer on the lateral aspect of the foot at the area of the 5th toe, about 3 cm in widest dimension, down to what appears subcutaneous layer with dark discoloration, No palpable dorsalis Results Labs Result diagrams: 06/02/21 06:19 06/02/21 06:19 Labs: Abnormal lab results 06/01/21 06/01/21 06/01/21 Range/Units 18:29 18:29 18:32 WBC 13.0 H (4.8-10.8) X10*3/uL RBC 3.38 L (4.60-5.80) X10*6/uL Hgb 10.2 L (14.0-18.0) g/dl Hct 32.4 L (42.0-52.0) % Plt Count (160-400) X10*3/uL Immature Gran % (Auto) 1.0 H (0.0-0.4) % Neut % (Auto) 90.4 H (45-73) % Lymph % (Auto) 3.1 L (20-40) % Lymph # (Auto) 0.4 L (1.2-4.9) X10*3/uL Abs Immat Gran (auto) 0.13 H (0.00-0.03) X10*3/uL Absolute Neuts (auto) 11.8 H (2.0-8.3) x10*3/uL ESR (0-15) MM/HR Sodium 134 L (135-145) mmol/L BUN 40 H (9-16) mg/dL Creatinine 4.71 H* (0.5-1.4) mg/dL POC Glucose (60-115) mg/dL Random Glucose 251 H D (60-115) mg/dL Troponin I High Sens 51.9 H (<3.5-35.0) ng/L C-Reactive Protein 13.38 H (< or = 0.50) mg/dL Albumin 3.3 L (3.5-5.0) g/dL 06/01/21 06/02/21 06/02/21 Range/Units 18:32 06:19 06:19 WBC (4.8-10.8) X10*3/uL RBC 3.24 L (4.60-5.80) X10*6/uL Hgb 10.1 L (14.0-18.0) g/dl Hct 31.1 L (42.0-52.0) % Plt Count 152 L D (160-400) X10*3/uL Immature Gran % (Auto) 0.6 H (0.0-0.4) % Neut % (Auto) 85.2 H (45-73) % Lymph % (Auto) 7.0 L (20-40) % Lymph # (Auto) 0.7 L (1.2-4.9) X10*3/uL Abs Immat Gran (auto) 0.06 H (0.00-0.03) X10*3/uL Absolute Neuts (auto) 8.7 H (2.0-8.3) x10*3/uL ESR 48 H (0-15) MM/HR Sodium (135-145) mmol/L BUN 46 H (9-16) mg/dL Creatinine 5.19 H* (0.5-1.4) mg/dL POC Glucose (60-115) mg/dL Random Glucose 151 H D (60-115) mg/dL Troponin I High Sens (<3.5-35.0) ng/L C-Reactive Protein (< or = 0.50) mg/dL Albumin (3.5-5.0) g/dL 06/02/21 Range/Units 07:10 WBC (4.8-10.8) X10*3/uL RBC (4.60-5.80) X10*6/uL Hgb (14.0-18.0) g/dl Hct (42.0-52.0) % Plt Count (160-400) X10*3/uL Immature Gran % (Auto) (0.0-0.4) % Neut % (Auto) (45-73) % Lymph % (Auto) (20-40) % Lymph # (Auto) (1.2-4.9) X10*3/uL Abs Immat Gran (auto) (0.00-0.03) X10*3/uL Absolute Neuts (auto) (2.0-8.3) x10*3/uL ESR (0-15) MM/HR Sodium (135-145) mmol/L BUN (9-16) mg/dL Creatinine (0.5-1.4) mg/dL POC Glucose 133 H (60-115) mg/dL Random Glucose (60-115) mg/dL Troponin I High Sens (<3.5-35.0) ng/L C-Reactive Protein (< or = 0.50) mg/dL Albumin (3.5-5.0) g/dL Short CBC 06/01/21 06/02/21 Range/Units 18:32 06:19 WBC 13.0 H 10.2 (4.8-10.8) X10*3/uL Hgb 10.2 L 10.1 L (14.0-18.0) g/dl Hct 32.4 L 31.1 L (42.0-52.0) % Plt Count 208 152 L D (160-400) X10*3/uL BMP 06/01/21 06/02/21 18:29 06:19 Sodium 134 L 135 Potassium 4.3 4.5 Chloride 96 99 Carbon Dioxide 28 23 BUN 40 H 46 H Creatinine 4.71 H* 5.19 H* Calcium 8.9 8.8 Liver Function 06/01/21 Range/Units 18:29 Total Bilirubin 0.6 (0.0-1.0) mg/dL AST 20 (5-37) U/L ALT 16 (0-40) U/L Alkaline Phosphatase 50 (39-117) U/L Albumin 3.3 L (3.5-5.0) g/dL All other labs normal. Imaging Additional studies: Laboratory Results WBC 10.2 X10*3/uL (4.8-10.8) 06/02/21 06:19 RBC 3.24 X10*6/uL (4.60-5.80) L 06/02/21 06:19 Hgb 10.1 g/dl (14.0-18.0) L 06/02/21 06:19 Hct 31.1 % (42.0-52.0) L 06/02/21 06:19 MCV 96.0 fL (80.0-98.0) 06/02/21 06:19 MCH 31.2 pg (27.0-33.0) 06/02/21 06:19 MCHC 32.5 g/dl (31.0-36.0) 06/02/21 06:19 RDW 15.5 % (11.0-16.0) 06/02/21 06:19 Plt Count 152 X10*3/uL (160-400) L D 06/02/21 06:19 MPV 12.1 fL (9.4-12.4) 06/02/21 06:19 Immature Gran % (Auto) 0.6 % (0.0-0.4) H 06/02/21 06:19 Neut % (Auto) 85.2 % (45-73) H 06/02/21 06:19 Lymph % (Auto) 7.0 % (20-40) L 06/02/21 06:19 [place] % (Auto) 6.2 % (2-11) 06/02/21 06:19 Eos % (Auto) 0.6 % (0-4) 06/02/21 06:19 Baso % (Auto) 0.4 % (0-2) 06/02/21 06:19 Lymph # (Auto) 0.7 X10*3/uL (1.2-4.9) L 06/02/21 06:19 [place] # (Auto) 0.6 X10*3/uL (0.1-1.2) 06/02/21 06:19 Eos # (Auto) 0.1 X10*3/uL (0.0-0.4) 06/02/21 06:19 Baso # (Auto) 0.0 X10*3/uL (0.0-0.2) 06/02/21 06:19 Abs Immat Gran (auto) 0.06 X10*3/uL (0.00-0.03) H 06/02/21 06:19 Absolute Neuts (auto) 8.7 x10*3/uL (2.0-8.3) H 06/02/21 06:19 Absolute Nucleated RBC 0.000 X10*3/uL (0.0-0.012) 06/02/21 06:19 Nucleated RBC % (auto) 0.0 /100WBC (0.0-0.2) 06/02/21 06:19 Smear Tech's Comments VERIFIED 06/01/21 18:32 ESR 48 MM/HR (0-15) H 06/01/21 18:32 Sodium 135 mmol/L (135-145) 06/02/21 06:19 Potassium 4.5 mmol/L (3.3-5.1) 06/02/21 06:19 Chloride 99 mmol/L (96-108) 06/02/21 06:19 Carbon Dioxide 23 mmol/L (22-29) 06/02/21 06:19 Anion Gap 18 (12-20) 06/02/21 06:19 BUN 46 mg/dL (9-16) H 06/02/21 06:19 Creatinine 5.19 mg/dL (0.5-1.4) H* 06/02/21 06:19 Estim Creat Clear Calc 10.8 06/02/21 06:19 Estimated GFR 11 06/02/21 06:19 POC Glucose 133 mg/dL (60-115) H 06/02/21 07:10 Random Glucose 151 mg/dL (60-115) H D 06/02/21 06:19 Lactic Acid 1.0 mmol/L (0.5-2.0) 06/01/21 18:29 Calcium 8.8 mg/dL (8.4-10.2) 06/02/21 06:19 Total Bilirubin 0.6 mg/dL (0.0-1.0) 06/01/21 18:29 AST 20 U/L (5-37) 06/01/21 18:29 ALT 16 U/L (0-40) 06/01/21 18:29 Alkaline Phosphatase 50 U/L (39-117) 06/01/21 18:29 Troponin I High Sens 51.9 ng/L (<3.5-35.0) H 06/01/21 18:29 C-Reactive Protein 13.38 mg/dL (< or = 0.50) H 06/01/21 18:29 Total Protein 6.8 g/dL (6.5-8.0) 06/01/21 18:29 Albumin 3.3 g/dL (3.5-5.0) L 06/01/21 18:29 COVID-19 ([facility]ANE) Negative (Negative) 06/01/21 18:24 COVID-19 Clin Com See Note 06/01/21 18:24 Impressions Chest X-Ray 06/01/21 17:48 IMPRESSION: Airspace opacities in the right lower lobe with a small right pleural effusion are nonspecific and could be associated with aspiration or pneumonia. Recommend follow-up after treatment to ensure resolution. Foot X-Ray 06/01/21 17:48 IMPRESSION: New area of soft tissue loss adjacent to the head of the fifth metatarsal laterally, but no bone destruction. Foot CT 06/01/21 21:56 IMPRESSION: No acute abnormality. No radiographic evidence for osteomyelitis. No bone destruction. No abscess or fluid collection. Assessment and Plan (1) Diabetic foot infection: Status: Acute Plan He has a chronic ulcer with dark discoloration of the 5th toe and lateral aspect of the left foot. His imaging studies do not show obvious osteomyelitis. I would recommend vascular workup because of this discoloration. Exam is suspicious for peripheral arterial disease. I have recommended a consultation with vascular surgery as well. He likely will require amputation, the level of which will depend on vascular workup. Otherwise does not seem to be septic and appears comfortable. He has been started on empiric antibiotics. He is on hemodialysis as well. Procedures Date of Service Date of Service: 06/02/21
--- NOTE | 2021-06-02 08:28 | PHA.PROG ---
Admission Date/Time: June 01, 2021 23:06 Indication: Weight in k.7 kg Adjusted body weight in Kg: [place] body weight in Kg: Obesity Dosing Indication % IBW: Serum Creatinine - Last 168 Hours 06/01/21 06/02/21 18:29 06:19 Creatinine 4.71 H* 5.19 H* Estimated CrCl and GFR - Last 168 Hours 06/01/21 06/02/21 18:29 06:19 Estim Creat Clear Calc 11.9 10.8 Estimated GFR 12 11 Vancomycin Loading Dose: 1000 MG Current Vancomycin Dosing Regimen: Vancomycin Monitoring using AUC goal of 400 - 600 range with trough as surrogate marker: Date and Time for next Vancomycin Level to be drawn: Pharmacist Comments on Vancomycin Plan:DIALYSIS PATIENT, WILL DOSE BY LEVEL, PT RECEIVED 1 GRAM 06/01/211941, WILL FIND OUT NEXT TIME OF DIALYSIS AND GET POST DIALYSIS LEVEL TO DOSE Vancomycin dosing will take advantage of [employer] as a clinical decision support tool that uses Bayesian modeling to calculate individual patient's pharmacokinetic parameters and forecast the patient's drug concentration time course with the target goal AUC 24 range of 400 - 600 mg/L/hr.
[2021-06-02] MEDS: Bumetanide 1 MG TABLET PO (08:52)
[2021-06-02] MEDS: amLODIPine Besylate 2.5 MG TABLET PO (08:52)
[2021-06-02] MEDS: Multivitamin TABLET 1 TAB PO (08:52)
[2021-06-02] MEDS: carvediloL 25 MG TABLET PO ×2 (08:52→21:15)
[2021-06-02] MEDS: Aspirin Enteric Coated 81 MG TABLET.DR PO (08:52)
[2021-06-02] MEDS: Losartan Potassium 25 MG TABLET PO (08:52)
[2021-06-02] MEDS: Sevelamer Carbonate Tablet 800 MG TABLET PO ×3 (08:52→18:40)
[2021-06-02] MEDS: UrsodioL 300 MG CAPSULE PO ×2 (08:52→21:14)
[2021-06-02] MEDS: 0.9 % Sodium Chloride Flush 3 ML SYRINGE IVFLUSH (08:53)
--- NOTE | 2021-06-02 09:27 | MHC.CM.PN ---
CM MET WITH PT WITH THE ASSISTANCE OF A OPERATIONS CONSULTANT PT REPORTS HE LIVES WITH HIS AND SON AND HAS [employer] PHONE [employer] DAILY PT REPORTS HE HAS BOTH A CANE AND A WALKER HE USES PRN PT CONFIRMS HIS PCP IS MARJ LOMAS AND HE SAYS HIS DAUGHTER IS HIS HCP, COPY REQUESTED PT REPORTS HE HAS RECEIVED THE COVID-19 VACCINES AND BOOSTER BUT IS UNSURE OF THE BRAND IMM DELIVERED, COPY SENT TO [facility] CURRENT DC PLAN IS HOME, RESUME [employer] PHONE [employer] FAMILY TO TRANSPORT
--- NOTE | 2021-06-02 10:41 | P.CONGS_ITS ---
History of Present Illness Consult details Consult date: 06/02/21 Narrative: pleasant 75-year-old gentleman [facility] non[facility]aling left lateral foot ulceration. He was apparently [facility] yesterday and actually was scheduled for an office visit with me yesterday this was canceled as he was subsequently admitted due to concern of infection of his foot. He root is a long-standing diabetic for nearly 20 years. Also of note he is on dialysis. He now presents for vascular workup and evaluation of his left lower extremity. patient was seen with wing commander present Review of Systems Review of Systems: Yes all other systems are reviewed and are negative Constitutional: Constitutional: Reports no additional constitutional complaints ENT: Reports Normal hearing present Cardiovascular: Cardiovascular: Denies chest pain, Denies chest pain at rest, Denies chest pain with activity and Denies pedal edema Respiratory: Respiratory: Denies cough Gastrointestinal: Gastrointestinal: Denies abdominal pain Musculoskeletal: Musculoskeletal: Denies abnormal gait, Denies muscle cramps and Denies radiating pain into limb Integumentary/Breasts: Skin/Breast: Denies skin ulcer and Denies wounds Neurologic: Reports Normal hearing present and Denies abnormal gait Psychiatric: Psychiatric: Reports no additional psychiatric complaints PMFSH Past Medical History Medical History Anemia in chronic kidney disease Diabetes Diabetes mellitus, with long-term current use of insulin Diarrhea End-stage renal disease on hemodialysis High cholesterol Hypertension Microalbuminuria Mixed hyperlipidemia Family History Family History Father Myocardial infarction Mother No problems noted. Surgical History Surgical History History of eye surgery History of laminectomy History of surgery History of surgery on arm S/P CABG x 4 Social History Social History Housing: Apartment Alcohol intake: never Patient Tobacco Use Status: Never used Tobacco e-Cigarette/Vaping Use: Never Used Second Hand Smoke Exposure: No Advance Directives: No Advance Directives Information Provided: Yes service: No Current occupational status: retired and disabled Meds Allergies Allergy/AdvReac Type Severity Reaction Status Date / Time lisinopril Allergy Intermediate hyperkalemi Verified 06/01/21 13:25 a lidocaine [From LIDOPRIL] Allergy Mild COUGH Verified 06/01/21 13:25 prilocaine [From LIDOPRIL] Allergy Mild COUGH Verified 06/01/21 13:25 canagliflozin [Invokana] AdvReac Mild back pain Verified 06/01/21 13:25 Hydralazine-HCTZ Allergy Unknown Unknown Uncoded 05/02/21 12:09 Active Medications: Current Medications Acetaminophen (Acetaminophen 325 Mg Tablet) 650 mg PO Q6H PRN PRN Reason: Pain, Mild (Pain Scale 1-3) Amlodipine Besylate (Amlodipine Besylate 2.5 Mg Tablet) 2.5 mg PO DAILY [facility]; Protocol Last Admin: 06/02/21 08:52 Dose: 2.5 mg Documented by: Amlodipine Besylate (Amlodipine Besylate 5 Mg Tablet) 5 mg PO BEDTIME [facility]; Protocol Aspirin (Aspirin Enteric Coated 81 Mg Tablet.) 81 mg PO DAILY [facility] Last Admin: 06/02/21 08:52 Dose: 81 mg Documented by: Atorvastatin Calcium (Atorvastatin Calcium 40 Mg Tablet) 40 mg PO BEDTIME [facility] Bumetanide (Bumetanide 1 Mg Tablet) 1 mg PO DAILY [facility]; Protocol Last Admin: 06/02/21 08:52 Dose: 1 mg Documented by: Carvedilol (Carvedilol 25 Mg Tablet) 25 mg PO BID [facility]; Protocol Last Admin: 06/02/21 08:52 Dose: 25 mg Documented by: Heparin Sodium (Porcine) (Heparin Sodium,Porcine 5,000 Unit/Ml Vial) 5,000 unit SUBCUT Q8H [facility] Last Admin: 06/02/21 08:55 Dose: Not Given Documented by: Piperacillin Sod/Tazobactam (Sod 2.25 gm/ Sodium Chloride) 50 mls @ 100 mls/hr IV Q8H [facility] Last Admin: 06/02/21 08:53 Dose: 100 mls/hr Documented by: Vancomycin HCl 1,000 mg/ (Sodium Chloride) 270 mls @ 270 mls/hr IV [id number] [facility] Losartan Potassium (Losartan Potassium 25 Mg Tablet) 25 mg PO DAILY [facility]; Protocol Last Admin: 06/02/21 08:52 Dose: 25 mg Documented by: Melatonin (Melatonin 3 Mg Tablet) 6 mg PO BEDTIME PRN PRN Reason: Insomnia Multivitamins/Vitamin C (Multivitamin Tablet) 1 tab PO DAILY [facility] Last Admin: 06/02/21 08:52 Dose: 1 tab Documented by: Pharmacy Consult (Consult Rx Perform Med Rec) 1 each MISCELLANE ONCE PRN PRN Reason: Consult order Pharmacy Consult (Consult Rx Vancomycin Dosing) 1 each MISCELLANE DAILY PRN PRN Reason: Consult order Senna (Sennosides 8.6 Mg Tablet) 17.2 mg PO BEDTIME PRN PRN Reason: Constipation Sevelamer Carbonate (Sevelamer Carbonate Tablet 800 Mg Tablet) 800 mg PO TIDWM [facility] Last Admin: 06/02/21 08:52 Dose: 800 mg Documented by: Sodium Chloride (0.9 % Sodium Chloride Flush 3 Ml Syringe) 3 ml IVFLUSH QSHIFT [facility] Last Admin: 06/02/21 08:53 Dose: 3 ml Documented by: Temazepam (Temazepam 15 Mg Capsule) 15 mg PO BEDTIME PRN PRN Reason: Insomnia Ursodiol (Ursodiol 300 Mg Capsule) 300 mg PO BID [facility] Last Admin: 06/02/21 08:52 Dose: 300 mg Documented by: Home Medications Medication Instructions Recorded Confirmed Last Taken Type sevelamer carbonate 800 mg tablet 800 mg PO TID 01/22/20 06/01/21 06/01/21 History amlodipine 5 mg tablet 2.5 mg PO DAILY 06/01/21 06/01/21 06/01/21 History amlodipine 5 mg tablet 5 mg PO BEDTIME 06/01/21 06/01/21 05/31/21 History aspirin 81 mg tablet,delayed 1 tab PO DAILY 06/01/21 06/01/21 06/01/21 History release atorvastatin 40 mg tablet 40 mg PO BEDTIME 06/01/21 06/01/21 05/31/21 History carvedilol 25 mg tablet 1 tab PO BID 06/01/21 06/01/21 06/01/21 History ergocalciferol (vitamin D2) 1,250 1 cap PO FR 06/01/21 06/01/21 06/01/21 History mcg (50,000 unit) capsule (Vitamin D2) tramadol 50 mg tablet 50 mg PO BID-TID PRN 06/01/21 06/01/21 06/01/21 History ursodiol 300 mg capsule 1 cap PO BID 06/01/21 06/01/21 06/01/21 History Physical Exam Vital Signs: Vital Signs: Last Vital Signs Temp 98.2 F 06/02/21 04:24 Pulse 67 06/02/21 07:53 Resp 18 06/02/21 07:53 BP 165/79 H 06/02/21 07:53 Pulse Ox 96 06/02/21 07:53 BMI result Body Mass Index 27.0 Const: General: cooperative, healthy appearing and comfortable Orientation/ consciousness: oriented to person, oriented to place and oriented to time HEENT: Head: Yes normal to inspection Neck: Neck: Yes normal visual inspection Carotids: no bruits Chest: Chest palpation & inspection: normal inspection of the chest Resp: Effort & Inspection: normal respiratory effort and able to speak in complete sentences Auscultation: clear to auscultation bilaterally, no crackles, no rales, no rhonchi and no wheezes Cardio: Rate: regular rate Rhythm: regular rhythm Heart sounds: S1 normal heart sound present and S2 normal heart sound present Bruits: no carotid bruits Peripheral pulses: dorsalis pedis present bilateral ( DP signals) GI: Inspection: Yes normal to inspection Skin: Wounds: wounds noted ( left 5th toe & lateral aspect gangrene, significant surrounding cellulitis) Hair: normal Neuro: General: oriented to person, oriented to place and oriented to time Cranial nerves: Yes CN's II-XII intact bilaterally and Yes Normal hearing present Cognition (Neuro): normal cognition Motor exam (neuro): 5/5 motor strength present throughout Extrem: Other: venous exam: No significant superficial varicosities or spider telangiectasias, minimal edema General: No clubbing, No cyanosis and No edema Psych: Appearance: grossly normal Mental Status: mental status grossly normal Speech and movement: Normal speech and movement present Results Labs Result diagrams: 06/02/21 06:19 06/02/21 06:19 Labs: Abnormal lab results 06/01/21 06/01/21 06/01/21 Range/Units 18:29 18:29 18:32 WBC 13.0 H (4.8-10.8) X10*3/uL RBC 3.38 L (4.60-5.80) X10*6/uL Hgb 10.2 L (14.0-18.0) g/dl Hct 32.4 L (42.0-52.0) % Plt Count (160-400) X10*3/uL Immature Gran % (Auto) 1.0 H (0.0-0.4) % Neut % (Auto) 90.4 H (45-73) % Lymph % (Auto) 3.1 L (20-40) % Lymph # (Auto) 0.4 L (1.2-4.9) X10*3/uL Abs Immat Gran (auto) 0.13 H (0.00-0.03) X10*3/uL Absolute Neuts (auto) 11.8 H (2.0-8.3) x10*3/uL ESR (0-15) MM/HR Sodium 134 L (135-145) mmol/L BUN 40 H (9-16) mg/dL Creatinine 4.71 H* (0.5-1.4) mg/dL POC Glucose (60-115) mg/dL Random Glucose 251 H D (60-115) mg/dL Troponin I High Sens 51.9 H (<3.5-35.0) ng/L C-Reactive Protein 13.38 H (< or = 0.50) mg/dL Albumin 3.3 L (3.5-5.0) g/dL 06/01/21 06/02/21 06/02/21 Range/Units 18:32 06:19 06:19 WBC (4.8-10.8) X10*3/uL RBC 3.24 L (4.60-5.80) X10*6/uL Hgb 10.1 L (14.0-18.0) g/dl Hct 31.1 L (42.0-52.0) % Plt Count 152 L D (160-400) X10*3/uL Immature Gran % (Auto) 0.6 H (0.0-0.4) % Neut % (Auto) 85.2 H (45-73) % Lymph % (Auto) 7.0 L (20-40) % Lymph # (Auto) 0.7 L (1.2-4.9) X10*3/uL Abs Immat Gran (auto) 0.06 H (0.00-0.03) X10*3/uL Absolute Neuts (auto) 8.7 H (2.0-8.3) x10*3/uL ESR 48 H (0-15) MM/HR Sodium (135-145) mmol/L BUN 46 H (9-16) mg/dL Creatinine 5.19 H* (0.5-1.4) mg/dL POC Glucose (60-115) mg/dL Random Glucose 151 H D (60-115) mg/dL Troponin I High Sens (<3.5-35.0) ng/L C-Reactive Protein (< or = 0.50) mg/dL Albumin (3.5-5.0) g/dL 06/02/21 Range/Units 07:10 WBC (4.8-10.8) X10*3/uL RBC (4.60-5.80) X10*6/uL Hgb (14.0-18.0) g/dl Hct (42.0-52.0) % Plt Count (160-400) X10*3/uL Immature Gran % (Auto) (0.0-0.4) % Neut % (Auto) (45-73) % Lymph % (Auto) (20-40) % Lymph # (Auto) (1.2-4.9) X10*3/uL Abs Immat Gran (auto) (0.00-0.03) X10*3/uL Absolute Neuts (auto) (2.0-8.3) x10*3/uL ESR (0-15) MM/HR Sodium (135-145) mmol/L BUN (9-16) mg/dL Creatinine (0.5-1.4) mg/dL POC Glucose 133 H (60-115) mg/dL Random Glucose (60-115) mg/dL Troponin I High Sens (<3.5-35.0) ng/L C-Reactive Protein (< or = 0.50) mg/dL Albumin (3.5-5.0) g/dL Short CBC 06/01/21 06/02/21 Range/Units 18:32 06:19 WBC 13.0 H 10.2 (4.8-10.8) X10*3/uL Hgb 10.2 L 10.1 L (14.0-18.0) g/dl Hct 32.4 L 31.1 L (42.0-52.0) % Plt Count 208 152 L D (160-400) X10*3/uL BMP 06/01/21 06/02/21 18:29 06:19 Sodium 134 L 135 Potassium 4.3 4.5 Chloride 96 99 Carbon Dioxide 28 23 BUN 40 H 46 H Creatinine 4.71 H* 5.19 H* Calcium 8.9 8.8 Liver Function 06/01/21 Range/Units 18:29 Total Bilirubin 0.6 (0.0-1.0) mg/dL AST 20 (5-37) U/L ALT 16 (0-40) U/L Alkaline Phosphatase 50 (39-117) U/L Albumin 3.3 L (3.5-5.0) g/dL All other labs normal. Assessment and Plan (1) PAD (peripheral artery disease): Status: Acute Patient notes nonhealing left leg ulcer. I have discussed the pathophysiology of peripheral vascular disease with the patient. I have also discussed risk factor modification. I have taken the liberty of ordering bilateral lower extremity noninvasive testing which is still pending. Due to his lack of pulses and significant ulceration he will require an angiogram. . the patient would benefit from a left leg endovascular peripheral angiogram with possible angioplasty, stent, and/or atherectomy. This has been discussed in detail with the patient along with risks, benefits, and complications. This includes but is not limited to bleeding, infection, heart attack, need for emergent surgical repair, limb ischemia, blood vessel damage, bleeding, puncture, kidney injury, bruising, allergic reaction, and skin reaction. The patient demonstrates a clear understanding. We will schedule for Saturday. Thank you for allowing us to assist in this patient's care. please note this was all discussed with wing commander present Procedures Date of Service Date of Service: 06/02/21
--- NOTE | 2021-06-02 11:55 | HO.PM.IMPN ---
Subjective Subjective Date of Service: 06/02/21 Interval History: patient being followed for left diabetic foot infection, he denies fever chills, no nausea, no vomiting, denies foot pain, denies numbness tingling of foot,no acute issues since admission Review of Systems Review of Systems: Yes all other systems are reviewed and are negative Physical Exam Vital Signs: Vital Signs: Last Vital Signs Temp 98.2 F 06/02/21 04:24 Pulse 67 06/02/21 07:53 Resp 18 06/02/21 07:53 BP 165/79 H 06/02/21 07:53 Pulse Ox 96 06/02/21 07:53 BMI result Body Mass Index 27.0 Const: Other: General awake alert,in no acute distress. HEENT anicteric sclerae Neck no JVD. CVS regular rate rhythm, Respiratory lungs clear to auscultation, no respiratory distress, no wheeze, no rhonchi. Gastrointestinal abdomen soft, nontender, bowel sounds audible Extremities left foot gangrene lateral margin of small toe extended towards dorsum of foot, significant dusky discoloration dorsum of foot extended towards lower leg, open wound lateral margin base of small toe with foul odor left lower extremity edema to mid leg Neuro nonfocal, decreased position sense Skin no rash Objective Data Active Medications Acetaminophen (Acetaminophen 325 Mg Tablet) 650 mg PO Q6H PRN PRN Reason: Pain, Mild (Pain Scale 1-3) Amlodipine Besylate (Amlodipine Besylate 2.5 Mg Tablet) 2.5 mg PO DAILY [facility]; Protocol Last Admin: 06/02/21 08:52 Dose: 2.5 mg Documented by: MERVAT Amlodipine Besylate (Amlodipine Besylate 5 Mg Tablet) 5 mg PO BEDTIME [facility]; Protocol Aspirin (Aspirin Enteric Coated 81 Mg Tablet.) 81 mg PO DAILY [facility] Last Admin: 06/02/21 08:52 Dose: 81 mg Documented by: MERVAT Atorvastatin Calcium (Atorvastatin Calcium 40 Mg Tablet) 40 mg PO BEDTIME [facility] Bumetanide (Bumetanide 1 Mg Tablet) 1 mg PO DAILY [facility]; Protocol Last Admin: 06/02/21 08:52 Dose: 1 mg Documented by: M[facility]AT Carvedilol (Carvedilol 25 Mg Tablet) 25 mg PO BID [facility]; Protocol Last Admin: 06/02/21 08:52 Dose: 25 mg Documented by: [facility]AT Heparin Sodium (Porcine) (Heparin Sodium,Porcine 5,000 Unit/Ml Vial) 5,000 unit SUBCUT Q8H [facility] Last Admin: 06/02/21 08:55 Dose: Not Given Documented by: MERVAT Non-Admin Reason: See Note Piperacillin Sod/Tazobactam (Sod 2.25 gm/ Sodium Chloride) 50 mls @ 100 mls/hr IV Q8H [facility] Last Admin: 06/02/21 08:53 Dose: 100 mls/hr Documented by: MERVAT Vancomycin HCl 1,000 mg/ (Sodium Chloride) 270 mls @ 270 mls/hr IV [id number] [facility] Sodium Chloride (Ns) 1,000 mls @ 100 mls/hr IVCONT .Q10H [facility] Losartan Potassium (Losartan Potassium 25 Mg Tablet) 25 mg PO DAILY [facility]; Protocol Last Admin: 06/02/21 08:52 Dose: 25 mg Documented by: [facility] Melatonin (Melatonin 3 Mg Tablet) 6 mg PO BEDTIME PRN PRN Reason: Insomnia Multivitamins/Vitamin C (Multivitamin Tablet) 1 tab PO DAILY [facility] Last Admin: 06/02/21 08:52 Dose: 1 tab Documented by: [facility]AT Pharmacy Consult (Consult Rx Perform Med Rec) 1 each MISCELLANE ONCE PRN PRN Reason: Consult order Pharmacy Consult (Consult Rx Vancomycin Dosing) 1 each MISCELLANE DAILY PRN PRN Reason: Consult order Senna (Sennosides 8.6 Mg Tablet) 17.2 mg PO BEDTIME PRN PRN Reason: Constipation Sevelamer Carbonate (Sevelamer Carbonate Tablet 800 Mg Tablet) 800 mg PO TIDWM [facility] Last Admin: 06/02/21 08:52 Dose: 800 mg Documented by: [facility]AT Sodium Chloride (0.9 % Sodium Chloride Flush 3 Ml Syringe) 3 ml IVFLUSH QSHIFT [facility] Last Admin: 06/02/21 08:53 Dose: 3 ml Documented by: [facility] Temazepam (Temazepam 15 Mg Capsule) 15 mg PO BEDTIME PRN PRN Reason: Insomnia Ursodiol (Ursodiol 300 Mg Capsule) 300 mg PO BID [facility] Last Admin: 06/02/21 08:52 Dose: 300 mg Documented by: MERVAT Labs CBC & Chem 7: 06/02/21 06:19 04/01/22 06:19 Labs: Laboratory Results - last 24 hr 06/01/21 06/01/21 06/01/21 18:24 18:29 18:29 MCV MCH MCHC RDW Plt Count MPV Immature Gran % (Auto) Neut % (Auto) Lymph % (Auto) Grant % (Auto) Eos % (Auto) Baso % (Auto) Lymph # (Auto) Grant # (Auto) Eos # (Auto) Baso # (Auto) Abs Immat Gran (auto) Absolute Neuts (auto) Absolute Nucleated RBC Nucleated RBC % (auto) Smear Tech's Comments ESR Anion Gap 14 Estim Creat Clear Calc 11.9 Estimated GFR 12 POC Glucose Random Glucose 251 H D Lactic Acid 1.0 Calcium 8.9 Total Bilirubin 0.6 AST 20 ALT 16 Alkaline Phosphatase 50 Troponin I High Sens C-Reactive Protein 13.38 H Total Protein 6.8 Albumin 3.3 L COVID-19 ([facility]) Negative COVID-19 Clin Com See Note 06/01/21 06/01/21 06/01/21 18:29 18:32 18:32 MCV 95.9 MCH 30.2 MCHC 31.5 RDW 15.2 Plt Count 208 MPV 12.3 Immature Gran % (Auto) 1.0 H Neut % (Auto) 90.4 H Lymph % (Auto) 3.1 L Grant % (Auto) 5.0 Eos % (Auto) 0.3 Baso % (Auto) 0.2 Lymph # (Auto) 0.4 L Grant # (Auto) 0.7 Eos # (Auto) 0.0 Baso # (Auto) 0.0 Abs Immat Gran (auto) 0.13 H Absolute Neuts (auto) 11.8 H Absolute Nucleated RBC 0.000 Nucleated RBC % (auto) 0.0 Smear Tech's Comments VERIFIED ESR 48 H Anion Gap Estim Creat Clear Calc Estimated GFR POC Glucose Random Glucose Lactic Acid Calcium Total Bilirubin AST ALT Alkaline Phosphatase Troponin I High Sens 51.9 H C-Reactive Protein Total Protein Albumin COVID-19 ([facility]) COVID-19 Clin Com 06/02/21 06/02/21 06/02/21 06:19 06:19 07:10 MCV 96.0 MCH 31.2 MCHC 32.5 RDW 15.5 Plt Count 152 L D MPV 12.1 Immature Gran % (Auto) 0.6 H Neut % (Auto) 85.2 H Lymph % (Auto) 7.0 L Grant % (Auto) 6.2 Eos % (Auto) 0.6 Baso % (Auto) 0.4 Lymph # (Auto) 0.7 L Grant # (Auto) 0.6 Eos # (Auto) 0.1 Baso # (Auto) 0.0 Abs Immat Gran (auto) 0.06 H Absolute Neuts (auto) 8.7 H Absolute Nucleated RBC 0.000 Nucleated RBC % (auto) 0.0 Smear Tech's Comments ESR Anion Gap 18 Estim Creat Clear Calc 10.8 Estimated GFR 11 POC Glucose 133 H Random Glucose 151 H D Lactic Acid Calcium 8.8 Total Bilirubin AST ALT Alkaline Phosphatase Troponin I High Sens C-Reactive Protein Total Protein Albumin COVID-19 ([facility]) COVID-19 Clin Com Microbiology Microbiology Results: Microbiology 06/01/21 18:24 Gram Stain - Final Foot Left Routine Culture - Preliminary Culture in progress. Assessment and Plan (1) PAD (peripheral artery disease): Status: Acute (2) Diabetic foot infection: Status: Acute (3) Wound of left foot: Status: Acute (4) End-stage renal disease on hemodialysis: Status: Acute (5) High cholesterol: Status: Acute (6) Hypertension: Status: Acute (7) Diabetes: Status: Acute Plan 75-year-old old male with a past medical history of hypertension, hyperlipidemia, diabetes, diabetic foot infection, CAD status post CABG, ESRD on hemodialysis; anemia of chronic disease, presented to the hospital with chief complaint of non healing diabetic foot infection.? Diabetic left foot nonhealing ulcer with gangrene/ cellulitis dorsum of foot gradually progressing left foot ulcer, not improving with wound care Continue IV vancomycin and Zosyn day 1 renally dose seen by vascular surgery Dr. Swan ordered bilateral lower extremity noninvasive testing he recommend left leg endovascular peripheral angiogram with possible angioplasty, stent and or atherectomy WBC normalized, blood cultures pending patient afebrile CT foot showed no radiographic evidence of osteomyelitis, no bone destruction or fluid collection History of diabetes: blood sugars stable, takes Lantus 10 units b.i.d., will change dose to Lantus 10 units at bedtime and add Insulin sliding scale, continue diabetic diet. History of ESRD: continue hemodialysis, continue home medication sevelamer, and Bumex. follow Nephrology input. History of hypertension elevated blood pressure on multiple antihypertensive, Coreg, Cozaar, Bumex and Norvasc Hyperlipidemia: Continue Lipitor anemia of chronic disease stable hematocrit follow CBC coronary artery disease no chest pain continue aspirin Lipitor and Coreg DVT prophylaxis:? Subcu heparin Code status: Full code Quality Stroke Does the patient have a stroke diagnosis?: No VTE Prior VTE?: No VTE Risk Level:: Medical - moderate - high VTE Device Contraindication: Treatment Not Indicated VTE Drug Contraindication: N/A - Med Ordered
[2021-06-02 13:02] LABS: Glucose, Whole Blood 174 mg/dL (60-115)
--- NOTE | 2021-06-02 13:30 | P.CNID_ITS ---
History of Present Illness Data of Consult Service Date: 06/02/21 Requesting physician: Gerardo Garcia Primary Care Provider: Sanjana Guerrero MD HPI Reason for consult: left diabetic foot wound He presents with foul smelling left foot wound. He had wound start six weeks ago and then redness one week. Two days ago area became putrid and darkened dorsum 3-5th toes. He reports no fever or chills. Review of Systems Review of Systems: Yes all other systems are reviewed and are negative PMFSH Past Medical History Medical History Anemia in chronic kidney disease Diabetes Diabetes mellitus, with long-term current use of insulin Diarrhea End-stage renal disease on hemodialysis High cholesterol Hypertension Microalbuminuria Mixed hyperlipidemia Family History Family History Father Myocardial infarction Mother No problems noted. Family history: reviewed and not pertinent Surgical History Surgical History History of eye surgery History of laminectomy History of surgery History of surgery on arm S/P CABG x 4 Social History Social History Housing: Apartment Alcohol intake: never Patient Tobacco Use Status: Never used Tobacco e-Cigarette/Vaping Use: Never Used Second Hand Smoke Exposure: No Advance Directives: No Advance Directives Information Provided: Yes service: No Current occupational status: retired and disabled Meds Allergies Allergy/AdvReac Type Severity Reaction Status Date / Time lisinopril Allergy Intermediate hyperkalemi Verified 06/01/21 13:25 a lidocaine [From LIDOPRIL] Allergy Mild COUGH Verified 06/01/21 13:25 prilocaine [From LIDOPRIL] Allergy Mild COUGH Verified 06/01/21 13:25 canagliflozin [Invokana] AdvReac Mild back pain Verified 06/01/21 13:25 Hydralazine-HCTZ Allergy Unknown Unknown Uncoded 05/02/21 12:09 Active Medications: Current Medications Acetaminophen (Acetaminophen 325 Mg Tablet) 650 mg PO Q6H PRN PRN Reason: Pain, Mild (Pain Scale 1-3) Amlodipine Besylate (Amlodipine Besylate 2.5 Mg Tablet) 2.5 mg PO DAILY [facility]; Protocol Last Admin: 06/02/21 08:52 Dose: 2.5 mg Documented by: Amlodipine Besylate (Amlodipine Besylate 5 Mg Tablet) 5 mg PO BEDTIME [facility]; Protocol Aspirin (Aspirin Enteric Coated 81 Mg Tablet.) 81 mg PO DAILY [facility] Last Admin: 06/02/21 08:52 Dose: 81 mg Documented by: Atorvastatin Calcium (Atorvastatin Calcium 40 Mg Tablet) 40 mg PO BEDTIME [facility]AN[facility] Bumetanide (Bumetanide 1 Mg Tablet) 1 mg PO DAILY [facility]; Protocol Last Admin: 06/02/21 08:52 Dose: 1 mg Documented by: Carvedilol (Carvedilol 25 Mg Tablet) 25 mg PO BID [facility]; Protocol Last Admin: 06/02/21 08:52 Dose: 25 mg Documented by: Dextrose (Dextrose 50 % 25 Gm/50 Ml Vial) 25 gm IVPUSH Q15M PRN; Protocol PRN Reason: per Hypoglycemia Standing Ord. Glucose (Glucose Gel 15 Gm Gel..Gram.) 15 gm PO Q15M PRN; Protocol PRN Reason: per Hypoglycemia Standing Ord. Heparin Sodium (Porcine) (Heparin Sodium,Porcine 5,000 Unit/Ml Vial) 5,000 unit SUBCUT Q8H [facility] Last Admin: 06/02/21 08:55 Dose: Not Given Documented by: Piperacillin Sod/Tazobactam (Sod 2.25 gm/ Sodium Chloride) 50 mls @ 100 mls/hr IV Q8H [facility] Last Infusion: 06/02/21 12:34 Dose: Infused Documented by: Vancomycin HCl 1,000 mg/ (Sodium Chloride) 270 mls @ 270 mls/hr IV [id number] [facility] Sodium Chloride (Ns) 1,000 mls @ 100 mls/hr IVCONT .Q10H [facility] Insulin Glargine (Insulin Glargine,Hum.Rec.Anlog 100 Unit/Ml 10 Ml Vial) 8 unit SUBCUT BEDTIME [facility] Insulin Human Lispro (Insulin Lispro 100 Unit/Ml 3 Ml Vial) 0 unit SUBCUT QIDACHS [facility]; Protocol Losartan Potassium (Losartan Potassium 25 Mg Tablet) 25 mg PO DAILY [facility]; Protocol Last Admin: 06/02/21 08:52 Dose: 25 mg Documented by: Melatonin (Melatonin 3 Mg Tablet) 6 mg PO BEDTIME PRN PRN Reason: Insomnia Multivitamins/Vitamin C (Multivitamin Tablet) 1 tab PO DAILY [facility] Last Admin: 06/02/21 08:52 Dose: 1 tab Documented by: Pharmacy Consult (Consult Rx Perform Med Rec) 1 each MISCELLANE ONCE PRN PRN Reason: Consult order Pharmacy Consult (Consult Rx Vancomycin Dosing) 1 each MISCELLANE DAILY PRN PRN Reason: Consult order Senna (Sennosides 8.6 Mg Tablet) 17.2 mg PO BEDTIME PRN PRN Reason: Constipation Sevelamer Carbonate (Sevelamer Carbonate Tablet 800 Mg Tablet) 800 mg PO TIDWM [facility] Last Admin: 06/02/21 12:44 Dose: 800 mg Documented by: Sodium Chloride (0.9 % Sodium Chloride Flush 3 Ml Syringe) 3 ml IVFLUSH QSHICHI [facility] Last Admin: 06/02/21 08:53 Dose: 3 ml Documented by: Temazepam (Temazepam 15 Mg Capsule) 15 mg PO BEDTIME PRN PRN Reason: Insomnia Ursodiol (Ursodiol 300 Mg Capsule) 300 mg PO BID [facility] Last Admin: 06/02/21 08:52 Dose: 300 mg Documented by: Home Medications Medication Instructions Recorded Confirmed Last Taken Type sevelamer carbonate 800 mg tablet 800 mg PO TID 01/22/20 06/01/21 06/01/21 History amlodipine 5 mg tablet 2.5 mg PO DAILY 06/01/21 06/01/21 06/01/21 History amlodipine 5 mg tablet 5 mg PO BEDTIME 06/01/21 06/01/21 05/31/21 History aspirin 81 mg tablet,delayed 1 tab PO DAILY 06/01/21 06/01/21 06/01/21 History release atorvastatin 40 mg tablet 40 mg PO BEDTIME 06/01/21 06/01/21 05/31/21 History carvedilol 25 mg tablet 1 tab PO BID 06/01/21 06/01/21 06/01/21 History ergocalciferol (vitamin D2) 1,250 1 cap PO FR 06/01/21 06/01/21 06/01/21 History mcg (50,000 unit) capsule (Vitamin D2) tramadol 50 mg tablet 50 mg PO BID-TID PRN 06/01/21 06/01/21 06/01/21 History ursodiol 300 mg capsule 1 cap PO BID 06/01/21 06/01/21 06/01/21 History Physical Exam Vital Signs: Vital Signs: Last Vital Signs Temp 98.2 F 06/02/21 04:24 Pulse 67 06/02/21 07:53 Resp 18 06/02/21 07:53 BP 165/79 H 06/02/21 07:53 Pulse Ox 96 06/02/21 07:53 BMI result Body Mass Index 27.0 Const: General: cooperative HEENT: Head: Yes normal to inspection Mouth: Normal oral and palatal mucosa present Eyes: General: appearance normal, both eyes and all related structures Resp: Effort & Inspection: normal respiratory effort Cardio: Rate: regular rate Rhythm: regular rhythm GI: Palpation (GI): Soft to palpation and nontender Skin: General skin exam: no rashes or lesions noted Extrem: Other: left dorsal foot necrotic area 3-5 th toes Foul smelling darkened decreased pulses Results Labs CBC & Chem 7: 06/02/21 06:19 06/02/21 06:19 Labs: Short CBC 06/01/21 06/02/21 Range/Units 18:32 06:19 WBC 13.0 H 10.2 (4.8-10.8) X10*3/uL Hgb 10.2 L 10.1 L (14.0-18.0) g/dl Hct 32.4 L 31.1 L (42.0-52.0) % Plt Count 208 152 L D (160-400) X10*3/uL BMP 06/01/21 06/02/21 18:29 06:19 Sodium 134 L 135 Potassium 4.3 4.5 Chloride 96 99 Carbon Dioxide 28 23 BUN 40 H 46 H Creatinine 4.71 H* 5.19 H* Calcium 8.9 8.8 Liver Function 06/01/21 Range/Units 18:29 Total Bilirubin 0.6 (0.0-1.0) mg/dL AST 20 (5-37) U/L ALT 16 (0-40) U/L Alkaline Phosphatase 50 (39-117) U/L Albumin 3.3 L (3.5-5.0) g/dL Microbiology Microbiology Results: Microbiology 06/01/21 18:24 Foot Left Gram Stain - Final 06/01/21 18:24 Foot Left Routine Culture - Preliminary Culture in progress. Assessment and Plan (1) PAD (peripheral artery disease): Status: Acute (2) Diabetic foot infection: Status: Acute There is probable gram negative,gram positive and anerobes He has negative CT scan foot but concern over deep infection anyway (3) Osteomyelitis: Status: Acute (4) Wound of left foot: Status: Acute Plan Continue Piperacillin/Tazobactam and Vancomycin for now. Await blood cultures. Surgery to evaluate. Would likely need surgical and possible IV antibiotics mcfp via HD (6 weeks)
--- NOTE | 2021-06-02 13:31 | PM.CNNEP ---
History of Present Illness Reason for Consult Consult date: 06/02/21 Reason for consult: ESRD management Chief Complaint Chief complaint: LEFT FOOT,DIABETIC INFECTION History of Present Illness Narrative: Mr. Jean-Pierre Calderón is a 75-year-old gentleman with past medical history of HTN, HLD, DM2, Diabetic foot infections, CAD s/p CABG, ESRD HD MWF, Nephrogenic anemia and secondary hyperparathyroidism who presented to hospital with concerns of diabetic foot infection. He is currently on Vanco/Zosyn. Review of Systems Constitutional: Reports no additional constitutional complaints, Denies body ache(s), Denies chills, Denies fatigue, Denies fever(s), Denies headache(s), Denies malaise and Denies weakness Reports Normal hearing present, Reports vertigo, Denies dizziness, Denies otalgia, Denies headache(s), Denies mouth pain and Denies sore throat Reports Normal hearing present, Denies confusion, Reports vertigo, Denies dizziness, Denies headache(s) and Denies weakness Psychiatric: Denies confusion Endocrine: Denies fatigue PMFSH Past Medical History Medical History Anemia in chronic kidney disease Diabetes Diabetes mellitus, with long-term current use of insulin Diarrhea End-stage renal disease on hemodialysis High cholesterol Hypertension Microalbuminuria Mixed hyperlipidemia Family History Family History Father Myocardial infarction Mother No problems noted. Surgical History Surgical History History of eye surgery History of laminectomy History of surgery History of surgery on arm S/P CABG x 4 Social History Social History Housing: Apartment Alcohol intake: never Patient Tobacco Use Status: Never used Tobacco e-Cigarette/Vaping Use: Never Used Second Hand Smoke Exposure: No Advance Directives: No Advance Directives Information Provided: Yes service: No Current occupational status: retired and disabled Meds Allergies Allergy/AdvReac Type Severity Reaction Status Date / Time lisinopril Allergy Intermediate hyperkalemi Verified 06/01/21 13:25 a lidocaine [From LIDOPRIL] Allergy Mild COUGH Verified 06/01/21 13:25 prilocaine [From LIDOPRIL] Allergy Mild COUGH Verified 06/01/21 13:25 canagliflozin [Invokana] AdvReac Mild back pain Verified 06/01/21 13:25 Hydralazine-HCTZ Allergy Unknown Unknown Uncoded 05/02/21 12:09 Active Medications: Current Medications Acetaminophen (Acetaminophen 325 Mg Tablet) 650 mg PO Q6H PRN PRN Reason: Pain, Mild (Pain Scale 1-3) Amlodipine Besylate (Amlodipine Besylate 2.5 Mg Tablet) 2.5 mg PO DAILY [facility]; Protocol Last Admin: 06/02/21 08:52 Dose: 2.5 mg Documented by: Amlodipine Besylate (Amlodipine Besylate 5 Mg Tablet) 5 mg PO BEDTIME [facility]; Protocol Aspirin (Aspirin Enteric Coated 81 Mg Tablet.) 81 mg PO DAILY [facility] Last Admin: 06/02/21 08:52 Dose: 81 mg Documented by: Atorvastatin Calcium (Atorvastatin Calcium 40 Mg Tablet) 40 mg PO BEDTIME [facility] Bumetanide (Bumetanide 1 Mg Tablet) 1 mg PO DAILY [facility]; Protocol Last Admin: 06/02/21 08:52 Dose: 1 mg Documented by: Carvedilol (Carvedilol 25 Mg Tablet) 25 mg PO BID [facility]; Protocol Last Admin: 06/02/21 08:52 Dose: 25 mg Documented by: Dextrose (Dextrose 50 % 25 Gm/50 Ml Vial) 25 gm IVPUSH Q15M PRN; Protocol PRN Reason: per Hypoglycemia Standing Ord. Glucose (Glucose Gel 15 Gm Gel..Gram.) 15 gm PO Q15M PRN; Protocol PRN Reason: per Hypoglycemia Standing Ord. Heparin Sodium (Porcine) (Heparin Sodium,Porcine 5,000 Unit/Ml Vial) 5,000 unit SUBCUT Q8H [facility] Last Admin: 06/02/21 08:55 Dose: Not Given Documented by: Piperacillin Sod/Tazobactam (Sod 2.25 gm/ Sodium Chloride) 50 mls @ 100 mls/hr IV Q8H [facility] Last Infusion: 06/02/21 12:34 Dose: Infused Documented by: Vancomycin HCl 1,000 mg/ (Sodium Chloride) 270 mls @ 270 mls/hr IV [id number] [facility] Sodium Chloride (Ns) 1,000 mls @ 100 mls/hr IVCONT .Q10H [facility] Insulin Glargine (Insulin Glargine,Hum.Rec.Anlog 100 Unit/Ml 10 Ml Vial) 8 unit SUBCUT BEDTIME [facility] Insulin Human Lispro (Insulin Lispro 100 Unit/Ml 3 Ml Vial) 0 unit SUBCUT QIDACHS [facility]; Protocol Losartan Potassium (Losartan Potassium 25 Mg Tablet) 25 mg PO DAILY [facility]; Protocol Last Admin: 06/02/21 08:52 Dose: 25 mg Documented by: Melatonin (Melatonin 3 Mg Tablet) 6 mg PO BEDTIME PRN PRN Reason: Insomnia Multivitamins/Vitamin C (Multivitamin Tablet) 1 tab PO DAILY [facility] Last Admin: 06/02/21 08:52 Dose: 1 tab Documented by: Pharmacy Consult (Consult Rx Perform Med Rec) 1 each MISCELLANE ONCE PRN PRN Reason: Consult order Pharmacy Consult (Consult Rx Vancomycin Dosing) 1 each MISCELLANE DAILY PRN PRN Reason: Consult order Senna (Sennosides 8.6 Mg Tablet) 17.2 mg PO BEDTIME PRN PRN Reason: Constipation Sevelamer Carbonate (Sevelamer Carbonate Tablet 800 Mg Tablet) 800 mg PO TIDWM [facility] Last Admin: 06/02/21 12:44 Dose: 800 mg Documented by: Sodium Chloride (0.9 % Sodium Chloride Flush 3 Ml Syringe) 3 ml IVFSH [facility] Last Admin: 06/02/21 08:53 Dose: 3 ml Documented by: Temazepam (Temazepam 15 Mg Capsule) 15 mg PO BEDTIME PRN PRN Reason: Insomnia Ursodiol (Ursodiol 300 Mg Capsule) 300 mg PO BID [facility] Last Admin: 06/02/21 08:52 Dose: 300 mg Documented by: Home Medications Medication Instructions Recorded Confirmed Last Taken Type sevelamer carbonate 800 mg tablet 800 mg PO TID 01/22/20 06/01/21 06/01/21 History amlodipine 5 mg tablet 2.5 mg PO DAILY 06/01/21 06/01/21 06/01/21 History amlodipine 5 mg tablet 5 mg PO BEDTIME 06/01/21 06/01/21 05/31/21 History aspirin 81 mg tablet,delayed 1 tab PO DAILY 06/01/21 06/01/21 06/01/21 History release atorvastatin 40 mg tablet 40 mg PO BEDTIME 06/01/21 06/01/21 05/31/21 History carvedilol 25 mg tablet 1 tab PO BID 06/01/21 06/01/21 06/01/21 History ergocalciferol (vitamin D2) 1,250 1 cap PO FR 06/01/21 06/01/21 06/01/21 History mcg (50,000 unit) capsule (Vitamin D2) tramadol 50 mg tablet 50 mg PO BID-TID PRN 06/01/21 06/01/21 06/01/21 History ursodiol 300 mg capsule 1 cap PO BID 06/01/21 06/01/21 06/01/21 History Physical Exam Vital Signs: Last Vital Signs Temp 98.2 F 06/02/21 04:24 Pulse 67 06/02/21 07:53 Resp 18 06/02/21 07:53 BP 165/79 H 06/02/21 07:53 Pulse Ox 96 06/02/21 07:53 BMI result Body Mass Index 27.0 Const General: cooperative, comfortable, alert and awake; No confusion Orientation/consciousness: oriented to person, oriented to place, oriented to time, patient oriented x3 and No confusion Neck Neck: Yes no meningeal signs Chest Chest palpation & inspection: normal inspection of the chest Resp Other: poor inspiratory effort Effort & Inspection: normal respiratory effort Auscultation: clear to auscultation bilaterally, no crackles, no rales, no rhonchi and no wheezes Cardio Rate: regular rate Rhythm: regular rhythm Heart sounds: S1 normal heart sound present and S2 normal heart sound present GI Inspection: Yes normal to inspection Palpation (GI): Soft to palpation, nontender, no guarding and not rigid Percussion: Yes normal to percussion Auscultation: normal bowel sounds Neuro General: oriented to person, oriented to place, oriented to time, patient oriented x3, no meningeal signs and No confusion Cranial nerves: Yes Normal hearing present Extrem General: No edema Results Lab Results Result Diagrams: 06/02/21 06:19 06/02/21 06:19 Lab results: Chemistry 06/01/21 06/02/21 18:29 06:19 Sodium 134 L 135 Potassium 4.3 4.5 Carbon Dioxide 28 23 BUN 40 H 46 H Creatinine 4.71 H* 5.19 H* Calcium 8.9 8.8 Hematology 06/01/21 06/02/21 18:32 06:19 WBC 13.0 H 10.2 Hgb 10.2 L 10.1 L Plt Count 208 152 L D Assessment and Plan (1) PAD (peripheral artery disease): Status: Acute (2) Diabetic foot infection: Status: Acute (3) Wound of left foot: Status: Acute (4) End-stage renal disease on hemodialysis: Status: Acute (5) High cholesterol: Status: Acute (6) Hypertension: Qualifiers: Hypertension type: renovascular hypertension Qualified Code(s): I15.0 - Renovascular hypertension Status: Acute (7) Diabetes: Qualifiers: Diabetes mellitus type: type 2 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 Jean-Pierre Calderón is a 75-year-old gentleman with past medical history of HTN, HLD, DM2, Diabetic foot infections, CAD s/p CABG, ESRD HD MWF, Nephrogenic anemia and secondary hyperparathyroidism who presented to hospital with concerns of diabetic foot infection. 1. Diabetic left foot nonhealing ulcer with gangrene/ cellulitis dorsum of foot 2. ESRD 3. Nephrogenic Anemia - Ferritin 791, Hgb 9-10, Tsat 18% 4. Secondary Hyperparathyroidism - PTH 218, Phos 6-7, Ca 8.1 Plan: - HD per MWF schedule - protect AVF - ESRD restriced Diet - Vanco post HD - Calcitriol 0.5mcg MWF - EPO 20,000u weekly. - sevelamer 800mg TID Procedures Date of Service Date of Service: 06/02/21
[2021-06-02 17:42] LABS: Glucose, Whole Blood 103 mg/dL (60-115)
[2021-06-02 19:18] LABS: Vancomycin Random 10.4 mcg/mL (15-20)
--- NOTE | 2021-06-02 19:30 | HE.PHANOTE ---
Vancomycin Addendum Post dialysis level was 10.4. Based on level patient will recieve vancomycin 500 mg tonight. Next level will be drawn post dialysis on Saturday. Each dose will be dosed based on post dialysis level. Juanis Arroyo, PharmD
[2021-06-02 20:00] VITALS: BP 136/56; PULSE 67; RESP 18; TEMP 36.4; O2SAT 96
[2021-06-02 20:53] LABS: Glucose, Whole Blood 168 mg/dL (60-115)
[2021-06-02] MEDS: Atorvastatin Calcium 40 MG TABLET PO (21:14)
[2021-06-02] MEDS: amLODIPine Besylate 5 MG TABLET PO (21:14)
[2021-06-02] MEDS: Insulin Glargine,Hum.rec.anlog 100 UNIT/ML 10 ML VIAL 8 UNIT SUBCUT (21:16)
[2021-06-02] MEDS: vancomycin HCL 500 MG in 0.9 % Sodium Chloride 100 ML 110 MG IV (21:16)
[2021-06-02] MEDS: Insulin Lispro 100 UNIT/ML 3 ML VIAL SUBCUT (21:16)
[2021-06-03] VITALS (7 sets, daily range): BP systolic 134–198; BP diastolic 56–90; PULSE 61–70; RESP 14–20; TEMP 36–36.4; O2SAT 94–97
[2021-06-03 06:31] LABS: Anion Gap 15 (12-20); Blood Urea Nitrogen 36 mg/dL (9-16); Calcium 8.8 mg/dL (8.4-10.2); Carbon Dioxide 24 mmol/L (22-29); Chloride 102 mmol/L (96-108); Creatinine Clr Calc Pharmacy 13.9; Estimated Glomerular Filt Rate 15; Glucose Random 68 mg/dL (60-115); Potassium 3.9 mmol/L (3.3-5.1); Sodium 137 mmol/L (135-145)
[2021-06-03 06:35] LABS: Estimated Average Glucose 114 mg/dL; Hemoglobin A1c % 5.6 %
[2021-06-03 07:28] LABS: Glucose, Whole Blood 65 mg/dL (60-115)
[2021-06-03] MEDS: Multivitamin TABLET 1 TAB PO (07:58)
[2021-06-03] MEDS: Aspirin Enteric Coated 81 MG TABLET.DR PO (07:58)
[2021-06-03] MEDS: amLODIPine Besylate 2.5 MG TABLET PO (07:58)
[2021-06-03] MEDS: Losartan Potassium 25 MG TABLET PO (07:58)
[2021-06-03] MEDS: Bumetanide 1 MG TABLET PO (07:58)
[2021-06-03] MEDS: Heparin Sodium,Porcine 5,000 UNIT/ML VIAL 5000 UNIT SUBCUT ×3 (07:59→21:43)
[2021-06-03] MEDS: Sevelamer Carbonate Tablet 800 MG TABLET PO ×3 (07:59→15:34)
[2021-06-03] MEDS: UrsodioL 300 MG CAPSULE PO ×2 (07:59→22:04)
[2021-06-03] MEDS: carvediloL 25 MG TABLET PO ×2 (07:59→20:35)
[2021-06-03] MEDS: 0.9 % Sodium Chloride Flush 3 ML SYRINGE IVFLUSH ×2 (08:00→15:35)
[2021-06-03] MEDS: Piperacillin Sodium/Tazobactam 2.25 GM in 0.9 % Sodium Chloride 50 ML IV ×2 (08:25→15:34)
--- NOTE | 2021-06-03 09:10 | HE.PHANOTE ---
Vancomycin Dosing Addendum pt will not get dialysis today per VAISHNAVI Baires and she will let me know if anything changes. Next dialysis and level on saturday06/05/21
--- NOTE | 2021-06-03 09:29 | HO.PM.IMPN ---
Subjective Subjective Date of Service: 06/03/21 Interval History: cc: F/u patient being followed for left diabetic foot infection Interval history: he denies fever chills, no nausea, no vomiting, denies foot pain, denies numbness tingling of foot,no acute issues since admission, pain is controlle Physical Exam Vital Signs: Vital Signs: Last Vital Signs Temp 96.8 F 06/03/21 07:37 Pulse 65 06/03/21 07:37 Resp 20 06/03/21 07:37 BP 198/68 H 06/03/21 07:39 Pulse Ox 94 06/03/21 07:37 BMI result Body Mass Index 27.0 Const: Other: General awake alert,in no acute distress. HEENT anicteric sclerae Neck no JVD. CVS regular rate rhythm, Respiratory lungs clear to auscultation, no respiratory distress, no wheeze, no rhonchi. Gastrointestinal abdomen soft, nontender, bowel sounds audible Extremities left foot gangrene lateral margin of small toe extended towards dorsum of foot, significant dusky discoloration dorsum of foot extended towards lower leg, open wound lateral margin base of small toe with foul odor left lower extremity edema to mid leg Neuro nonfocal, decreased position sense Skin no rash Objective Data Active Medications Acetaminophen (Acetaminophen 325 Mg Tablet) 650 mg PO Q6H PRN PRN Reason: Pain, Mild (Pain Scale 1-3) Amlodipine Besylate (Amlodipine Besylate 2.5 Mg Tablet) 2.5 mg PO DAILY [facility], [facility]; Protocol Last Admin: 06/03/21 07:58 Dose: 2.5 mg Documented by: MARION Amlodipine Besylate (Amlodipine Besylate 5 Mg Tablet) 5 mg PO BEDTIME [facility], [facility]; Protocol Last Admin: 06/02/21 21:14 Dose: 5 mg Documented by: ROBINSON Aspirin (Aspirin Enteric Coated 81 Mg Tablet.) 81 mg PO DAILY HANH Last Admin: 06/03/21 07:58 Dose: 81 mg Documented by: MARION Atorvastatin Calcium (Atorvastatin Calcium 40 Mg Tablet) 40 mg PO BEDTIME [facility]ANH Last Admin: 06/02/21 21:14 Dose: 40 mg Documented by: ROBINSON Bumetanide (Bumetanide 1 Mg Tablet) 1 mg PO DAILY [facility], [facility]; Protocol Last Admin: 06/03/21 07:58 Dose: 1 mg Documented by: MARION Calcitriol (Calcitriol 0.25 Mcg Capsule) 0.5 mcg PO MoWeFr [facility], [facility] Last Admin: 06/02/21 17:55 Dose: Not Given Documented by: DARNELL Non-Admin Reason: Off unit: Dialysis Carvedilol (Carvedilol 25 Mg Tablet) 25 mg PO BID [facility], [facility]; Protocol Last Admin: 06/03/21 07:59 Dose: 25 mg Documented by: MARION Dextrose (Dextrose 50 % 25 Gm/50 Ml Vial) 25 gm IVPUSH Q15M PRN; Protocol PRN Reason: per Hypoglycemia Standing Ord. Glucose (Glucose Gel 15 Gm Gel..Gram.) 15 gm PO Q15M PRN; Protocol PRN Reason: per Hypoglycemia Standing Ord. Heparin Sodium (Porcine) (Heparin Sodium,Porcine 5,000 Unit/Ml Vial) 5,000 unit SUBCUT Q8H [facility] Last Admin: 06/03/21 07:59 Dose: 5,000 unit Documented by: MARION Sodium Chloride (Ns) 1,000 mls @ 100 mls/hr IVCONT .Q10H [facility]1983 Vancomycin HCl 500 mg/ Sodium (Chloride) 110 mls @ 110 mls/hr IV MoWeFr@2000 [facility], [facility] Last Infusion: 06/02/21 22:29 Dose: 0 mls/hr Documented by: ROBINSON Piperacillin Sod/Tazobactam (Sod 2.25 gm/ Sodium Chloride) 50 mls @ 100 mls/hr IV Q8H [facility], [facility] Last Admin: 06/03/21 08:25 Dose: 100 mls/hr Documented by: MARION Insulin Glargine (Insulin Glargine,Hum.Rec.Anlog 100 Unit/Ml 10 Ml Vial) 8 unit SUBCUT BEDTIME [facility], [facility] Last Admin: 06/02/21 21:16 Dose: 8 unit Documented by: ROBINSON Insulin Human Lispro (Insulin Lispro 100 Unit/Ml 3 Ml Vial) 0 unit SUBCUT QIDACHS [facility], 1928–1983; Protocol Last Admin: 06/03/21 08:00 Dose: Not Given Documented by: MARION Non-Admin Reason: No Insulin Coverage Losartan Potassium (Losartan Potassium 25 Mg Tablet) 25 mg PO DAILY [facility]; Protocol Last Admin: 06/03/21 07:58 Dose: 25 mg Documented by: MARION Melatonin (Melatonin 3 Mg Tablet) 6 mg PO BEDTIME PRN PRN Reason: Insomnia Multivitamins/Vitamin C (Multivitamin Tablet) 1 tab PO DAILY [facility] Last Admin: 06/03/21 07:58 Dose: 1 tab Documented by: MARION Pharmacy Consult (Consult Rx Perform Med Rec) 1 each MISCELLANE ONCE PRN PRN Reason: Consult order Pharmacy Consult (Consult Rx Vancomycin Dosing) 1 each MISCELLANE DAILY PRN PRN Reason: Consult order Senna (Sennosides 8.6 Mg Tablet) 17.2 mg PO BEDTIME PRN PRN Reason: Constipation Sevelamer Carbonate (Sevelamer Carbonate Tablet 800 Mg Tablet) 800 mg PO TIDWM [facility] Last Admin: 06/03/21 07:59 Dose: 800 mg Documented by: MARION Sodium Chloride (0.9 % Sodium Chloride Flush 3 Ml Syringe) 3 ml IVFLUSH QSHIFT [facility] Last Admin: 06/03/21 08:00 Dose: 3 ml Documented by: MARION Temazepam (Temazepam 15 Mg Capsule) 15 mg PO BEDTIME PRN PRN Reason: Insomnia Ursodiol (Ursodiol 300 Mg Capsule) 300 mg PO BID [facility] Last Admin: 06/03/21 07:59 Dose: 300 mg Documented by: MARION Labs CBC & Chem 7: 06/02/21 06:19 06/03/21 05:31 Labs: Laboratory Results - last 24 hr 06/02/21 06/02/21 06/02/21 12:57 17:37 18:20 Anion Gap Estim Creat Clear Calc Estimated GFR POC Glucose 174 H 103 Random Glucose Estimat Average Glucose Hemoglobin A1c % Calcium Random Vancomycin 10.4 L 06/02/21 06/03/21 06/03/21 20:48 05:31 05:31 Anion Gap 15 Estim Creat Clear Calc 13.9 Estimated GFR 15 POC Glucose 168 H Random Glucose 68 D Estimat Average Glucose 114 Hemoglobin A1c % 5.6 Calcium 8.8 Random Vancomycin 06/03/21 07:20 Anion Gap Estim Creat Clear Calc Estimated GFR POC Glucose 65 Random Glucose Estimat Average Glucose Hemoglobin A1c % Calcium Random Vancomycin Microbiology Microbiology Results: Microbiology 06/01/21 18:24 Blood Culture - Preliminary Blood - Venous No growth after 24 hours. 06/01/21 18:24 Blood Culture - Preliminary Blood - Venous No growth after 24 hours. 06/01/21 18:24 Gram Stain - Final Foot Left Routine Culture - Preliminary Culture in progress. Assessment and Plan (1) PAD (peripheral artery disease): Status: Acute (2) Diabetic foot infection: Status: Acute (3) Wound of left foot: Status: Acute (4) End-stage renal disease on hemodialysis: Status: Acute (5) High cholesterol: Status: Acute (6) Hypertension: Status: Acute (7) Diabetes: Status: Acute Plan 75-year-old old male with a past medical history of hypertension, hyperlipidemia, diabetes, diabetic foot infection, CAD status post CABG, ESRD on hemodialysis; anemia of chronic disease, presented to the hospital with chief complaint of non healing diabetic foot infection.? Diabetic left foot nonhealing ulcer with gangrene/ cellulitis dorsum of foot gradually progressing left foot ulcer, not improving with wound care Continue IV vancomycin and Zosyn day 2 renally dose seen by vascular surgery Dr. Swan ordered bilateral lower extremity noninvasive testing he recommend left leg endovascular peripheral angiogram with possible angioplasty, stent and or atherectomy WBC normalized, blood cultures pending patient afebrile CT foot showed no radiographic evidence of osteomyelitis, no bone destruction or fluid collection History of diabetes: blood sugars stable, takes Lantus 10 units b.i.d., changed dose to Lantus 10 units at bedtime and add Insulin sliding scale, continue diabetic diet. History of ESRD: continue hemodialysis, continue home medication sevelamer, and Bumex. follow Nephrology input. History of hypertension elevated blood pressure on multiple antihypertensive, Coreg, Cozaar, Bumex and Norvasc Hyperlipidemia: Continue Lipitor anemia of chronic disease stable hematocrit follow CBC coronary artery disease no chest pain continue aspirin Lipitor and Coreg DVT prophylaxis:? Subcu heparin Code status: Full code Need for inaptient: diabetic foot ulcer that need IV Abx and will need vasuclar surgery Quality Stroke Does the patient have a stroke diagnosis?: No VTE Prior VTE?: No VTE Risk Level:: Medical - moderate - high VTE Device Contraindication: Treatment Not Indicated VTE Drug Contraindication: N/A - Med Ordered
[2021-06-03 11:17] LABS: Glucose, Whole Blood 108 mg/dL (60-115)
--- NOTE | 2021-06-03 13:10 | HE.PHANOTE ---
Zosyn <48H of therapy, followed by ID continue Vancomycin and Zosyn
--- NOTE | 2021-06-03 14:28 | PM.PNNEP ---
Subjective Subjective Date of Service: 06/03/21 Interval history: no osteo on imaging dialyzed yesterday Physical Exam Vital Signs: Vital Signs: Last Vital Signs Temp 96.8 F 06/03/21 07:37 Pulse 65 06/03/21 07:37 Resp 20 06/03/21 07:37 BP 198/68 H 06/03/21 07:39 Pulse Ox 94 06/03/21 07:37 BMI result Body Mass Index 27.0 Const: General: cooperative, comfortable, alert and awake; No confusion Orientation/consciousness: oriented to person, oriented to place, oriented to time, patient oriented x3 and No confusion Neck: Neck: Yes no meningeal signs Chest: Chest palpation & inspection: normal inspection of the chest Resp: Other: poor inspiratory effort Effort & Inspection: normal respiratory effort Auscultation: clear to auscultation bilaterally, no crackles, no rales, no rhonchi and no wheezes Cardio: Rate: regular rate Rhythm: regular rhythm Heart sounds: S1 normal heart sound present and S2 normal heart sound present GI: Inspection: Yes normal to inspection Palpation (GI): Soft to palpation, nontender, no guarding and not rigid Percussion: Yes normal to percussion Auscultation: normal bowel sounds Neuro: General: oriented to person, oriented to place, oriented to time, patient oriented x3, no meningeal signs and No confusion Cranial nerves: Yes Normal hearing present Extrem: General: No edema Objective Data Labs CBC & Chem 7: 06/02/21 06:19 06/03/21 05:31 Labs: Laboratory Results - last 24 hr 06/02/21 06/02/21 06/02/21 17:37 18:20 20:48 Sodium Potassium Chloride Carbon Dioxide Anion Gap BUN Creatinine Estim Creat Clear Calc Estimated GFR POC Glucose 103 168 H Random Glucose Estimat Average Glucose Hemoglobin A1c % Calcium Random Vancomycin 10.4 L 06/03/21 06/03/21 06/03/21 05:31 05:31 07:20 Sodium 137 Potassium 3.9 Chloride 102 Carbon Dioxide 24 Anion Gap 15 BUN 36 H Creatinine 4.05 H* Estim Creat Clear Calc 13.9 Estimated GFR 15 POC Glucose 65 Random Glucose 68 D Estimat Average Glucose 114 Hemoglobin A1c % 5.6 Calcium 8.8 Random Vancomycin 06/03/21 11:13 Sodium Potassium Chloride Carbon Dioxide Anion Gap BUN Creatinine Estim Creat Clear Calc Estimated GFR POC Glucose 108 Random Glucose Estimat Average Glucose Hemoglobin A1c % Calcium Random Vancomycin Microbiology Microbiology Results: Microbiology 06/01/21 18:24 Foot Left Gram Stain - Final 06/01/21 18:24 Foot Left Routine Culture - Preliminary Culture in progress. 06/01/21 18:24 Blood - Venous Blood Culture - Preliminary No growth after 24 hours. 06/01/21 18:24 Blood - Venous Blood Culture - Preliminary No growth after 24 hours. Procedures Date of Service Date of Service: 06/03/21 Assessment & Plan Assessment and plan (1) PAD (peripheral artery disease): Status: Acute (2) Diabetic foot infection: Status: Acute (3) Wound of left foot: Status: Acute (4) End-stage renal disease on hemodialysis: Status: Acute (5) High cholesterol: Status: Acute (6) Hypertension: Status: Acute (7) Diabetes: Status: Acute Plan Mr. Jean-Pierre Calderón is a 75-year-old gentleman with past medical history of HTN, HLD, DM2, Diabetic foot infections, CAD s/p CABG, ESRD HD MWF, Nephrogenic anemia and secondary hyperparathyroidism who presented to hospital with concerns of diabetic foot infection. 1. Diabetic left foot nonhealing ulcer with gangrene/ cellulitis dorsum of foot 2. ESRD 3. Nephrogenic Anemia - Ferritin 791, Hgb 9-10, Tsat 18% 4. Secondary Hyperparathyroidism - PTH 218, Phos 6-7, Ca 8.1 Plan: - HD per MWF schedule - protect AVF - ESRD restriced Diet - Vanco post HD - Calcitriol 0.5mcg MWF - EPO 20,000u weekly. - sevelamer 800mg TID Time Spent With Patient Time: Total time spent is greater than 50% in coordination of care (as documented) at patient's floor/unit and/or counseling patient: Progress Note: Quality Stroke Does the patient have a stroke diagnosis?: No
[2021-06-03 16:26] LABS: Glucose, Whole Blood 156 mg/dL (60-115)
[2021-06-03] MEDS: Insulin Lispro 100 UNIT/ML 3 ML VIAL SUBCUT ×2 (17:06→21:26)
[2021-06-03] MEDS: amLODIPine Besylate 5 MG TABLET PO (20:35)
[2021-06-03] MEDS: Atorvastatin Calcium 40 MG TABLET PO (20:35)
[2021-06-03] MEDS: Insulin Glargine,Hum.rec.anlog 100 UNIT/ML 10 ML VIAL 8 UNIT SUBCUT (20:35)
[2021-06-03 21:01] LABS: Glucose, Whole Blood 154 mg/dL (60-115)
[2021-06-03] MEDS: Acetaminophen 325 MG TABLET 650 MG PO (21:44)
[2021-06-04] MEDS: Piperacillin Sodium/Tazobactam 2.25 GM in 0.9 % Sodium Chloride 50 ML IV ×4 (01:17→23:56)
[2021-06-04] MEDS: 0.9 % Sodium Chloride Flush 3 ML SYRINGE IVFLUSH ×4 (01:19→22:13)
[2021-06-04 03:59] VITALS: BP 133/62; PULSE 70; RESP 18; TEMP 36.5; O2SAT 98
[2021-06-04 07:37] VITALS: BP 184/83; PULSE 66; RESP 20; TEMP 36.3; O2SAT 98
[2021-06-04 07:58] LABS: Glucose, Whole Blood 70 mg/dL (60-115)
--- NOTE | 2021-06-04 08:42 | P.PNIM_ITS ---
Subjective Subjective Date of Service: 06/04/21 Interval History: cc: F/u patient being followed for left diabetic foot infection Interval history:? he denies fever chills,? no nausea, no vomiting, denies foot pain, denies numbness tingling of foot,no acute issues since admission, he says the pain and swelling in the foot is better Physical Exam Vital Signs: Vital Signs: Last Vital Signs Temp 97.4 F 06/04/21 07:37 Pulse 66 06/04/21 07:37 Resp 20 06/04/21 07:37 BP 184/83 H 06/04/21 07:37 Pulse Ox 98 06/04/21 07:37 BMI result Body Mass Index 27.0 Const: Other: General awake alert,in no acute distress. HEENT anicteric sclerae Neck no JVD. CVS regular rate rhythm, Respiratory lungs clear to auscultation, no respiratory distress, no wheeze, no rhonchi. Gastrointestinal abdomen soft, nontender, bowel sounds audible Extremities left foot gangrene lateral margin of small toe extended towards dorsum of foot, significant dusky discoloration dorsum of foot extended towards lower leg, open wound lateral margin base of small toe with foul odor left lower extremity edema to mid leg Neuro nonfocal, decreased position sense Skin no rash Objective Data Active Medications Acetaminophen (Acetaminophen 325 Mg Tablet) 650 mg PO Q6H PRN PRN Reason: Pain, Mild (Pain Scale 1-3) Last Admin: 06/03/21 21:44 Dose: 650 mg Documented by: WILL Amlodipine Besylate (Amlodipine Besylate 2.5 Mg Tablet) 2.5 mg PO DAILY [facility]; Protocol Last Admin: 06/03/21 07:58 Dose: 2.5 mg Documented by: MARION Amlodipine Besylate (Amlodipine Besylate 5 Mg Tablet) 5 mg PO BEDTIME [facility]; Protocol Last Admin: 06/03/21 20:35 Dose: 5 mg Documented by: WILL Aspirin (Aspirin Enteric Coated 81 Mg Tablet.) 81 mg PO DAILY [facility] Last Admin: 06/03/21 07:58 Dose: 81 mg Documented by: MARION Atorvastatin Calcium (Atorvastatin Calcium 40 Mg Tablet) 40 mg PO BEDTIME [facility] Last Admin: 06/03/21 20:35 Dose: 40 mg Documented by: HO.COLOJ Bumetanide (Bumetanide 1 Mg Tablet) 1 mg PO DAILY [facility]; Protocol Last Admin: 06/03/21 07:58 Dose: 1 mg Documented by: MARION Calcitriol (Calcitriol 0.25 Mcg Capsule) 0.5 mcg PO MoWeFr [facility] Last Admin: 06/02/21 17:55 Dose: Not Given Documented by: DARNELL Non-Admin Reason: Off unit: Dialysis Carvedilol (Carvedilol 25 Mg Tablet) 25 mg PO BID [facility]; Protocol Last Admin: 06/03/21 20:35 Dose: 25 mg Documented by: WILL Dextrose (Dextrose 50 % 25 Gm/50 Ml Vial) 25 gm IVPUSH Q15M PRN; Protocol PRN Reason: per Hypoglycemia Standing Ord. Glucose (Glucose Gel 15 Gm Gel..Gram.) 15 gm PO Q15M PRN; Protocol PRN Reason: per Hypoglycemia Standing Ord. Heparin Sodium (Porcine) (Heparin Sodium,Porcine 5,000 Unit/Ml Vial) 5,000 unit SUBCUT Q8H [facility] Last Admin: 06/03/21 21:43 Dose: 5,000 unit Documented by: WILL Sodium Chloride (Ns) 1,000 mls @ 100 mls/hr IVCONT .Q10H [facility] Vancomycin HCl 500 mg/ Sodium (Chloride) 110 mls @ 110 mls/hr IV MoWeFr@2000 [facility] Last Infusion: 06/02/21 22:29 Dose: 0 mls/hr Documented by: ROBINSON Piperacillin Sod/Tazobactam (Sod 2.25 gm/ Sodium Chloride) 50 mls @ 100 mls/hr IV Q8H [facility] Last Infusion: 06/04/21 02:15 Dose: 0 mls/hr Documented by: ERICA Insulin Glargine (Insulin Glargine,Hum.Rec.Anlog 100 Unit/Ml 10 Ml Vial) 8 unit SUBCUT BEDTIME [facility] Last Admin: 06/03/21 20:35 Dose: 8 unit Documented by: WILL Insulin Human Lispro (Insulin Lispro 100 Unit/Ml 3 Ml Vial) 0 unit SUBCUT QIDACHS [facility]; Protocol Last Admin: 06/03/21 21:26 Dose: 2 unit Documented by: WILL Losartan Potassium (Losartan Potassium 25 Mg Tablet) 25 mg PO DAILY [facility]; Protocol Last Admin: 06/03/21 07:58 Dose: 25 mg Documented by: MARION Melatonin (Melatonin 3 Mg Tablet) 6 mg PO BEDTIME PRN PRN Reason: Insomnia Multivitamins/Vitamin C (Multivitamin Tablet) 1 tab PO DAILY [facility] Last Admin: 06/03/21 07:58 Dose: 1 tab Documented by: MARION Pharmacy Consult (Consult Rx Perform Med Rec) 1 each MISCELLANE ONCE PRN PRN Reason: Consult order Pharmacy Consult (Consult Rx Vancomycin Dosing) 1 each MISCELLANE DAILY PRN PRN Reason: Consult order Senna (Sennosides 8.6 Mg Tablet) 17.2 mg PO BEDTIME PRN PRN Reason: Constipation Sevelamer Carbonate (Sevelamer Carbonate Tablet 800 Mg Tablet) 800 mg PO TIDWM [facility] Last Admin: 06/03/21 15:34 Dose: 800 mg Documented by: MARION Sodium Chloride (0.9 % Sodium Chloride Flush 3 Ml Syringe) 3 ml IVFLUSH QSHIFT [facility] Last Admin: 06/04/21 01:19 Dose: 3 ml Documented by: ERICA Temazepam (Temazepam 15 Mg Capsule) 15 mg PO BEDTIME PRN PRN Reason: Insomnia Ursodiol (Ursodiol 300 Mg Capsule) 300 mg PO BID [facility] Last Admin: 06/03/21 22:04 Dose: 300 mg Documented by: WILL Labs CBC & Chem 7: 06/02/21 06:19 06/03/21 05:31 Labs: Laboratory Results - last 24 hr 06/03/21 06/03/21 06/03/21 11:13 16:18 20:25 POC Glucose 108 156 H 154 H 06/04/21 07:34 POC Glucose 70 Microbiology Microbiology Results: Microbiology 06/01/21 18:24 Blood Culture - Preliminary Blood - Venous No growth after 48 hours. 06/01/21 18:24 Blood Culture - Preliminary Blood - Venous No growth after 48 hours. 06/01/21 18:24 Gram Stain - Final Foot Left Routine Culture - Preliminary Culture in progress. Assessment and Plan (1) PAD (peripheral artery disease): Status: Acute (2) Diabetic foot infection: Status: Acute (3) Wound of left foot: Status: Acute (4) End-stage renal disease on hemodialysis: Status: Acute (5) High cholesterol: Status: Acute (6) Hypertension: Status: Acute (7) Diabetes: Status: Acute Plan 75-year-old old male with a past medical history of hypertension, hyperlipidemia, diabetes, diabetic foot infection, CAD status post CABG, ESRD on hemodialysis; anemia of chronic disease, presented to the hospital with chief complaint of non healing diabetic foot infection.? Diabetic left foot nonhealing ulcer with gangrene/ cellulitis dorsum of foot gradually progressing left foot ulcer, not improving with wound care Continue IV vancomycin and Zosyn day 3 renally dose seen by vascular surgery Dr. Swan ordered bilateral lower extremity noninvasive testing he recommend left leg endovascular peripheral angiogram with possible angioplasty, stent and or atherectomy WBC normalized, blood cultures pending patient afebrile CT foot showed no radiographic evidence of osteomyelitis, no bone destruction or fluid collection History of diabetes: blood sugars stable, takes Lantus 10 units b.i.d., changed dose to Lantus 10 units at bedtime and add Insulin sliding scale, continue diabetic diet. History of ESRD: continue hemodialysis, continue home medication sevelamer, and Bumex. follow Nephrology input. History of hypertension elevated blood pressure on multiple antihypertensive, Coreg, Cozaar, Bumex and Norvasc Hyperlipidemia: Continue Lipitor anemia of chronic disease stable hematocrit follow CBC coronary artery disease no chest pain continue aspirin Lipitor and Coreg DVT prophylaxis:? Subcu heparin Code status: Full code Need for inaptient: diabetic foot ulcer that need IV Abx and will need vasuclar surgery Quality Stroke Does the patient have a stroke diagnosis?: No VTE Prior VTE?: No VTE Risk Level:: Medical - moderate - high VTE Device Contraindication: Treatment Not Indicated VTE Drug Contraindication: N/A - Med Ordered
[2021-06-04 08:48] LABS: Estimated Glomerular Filt Rate 10
[2021-06-04] MEDS: UrsodioL 300 MG CAPSULE PO ×2 (09:17→22:12)
[2021-06-04] MEDS: carvediloL 25 MG TABLET PO ×2 (09:17→22:12)
[2021-06-04] MEDS: Losartan Potassium 25 MG TABLET PO (09:17)
[2021-06-04] MEDS: Aspirin Enteric Coated 81 MG TABLET.DR PO (09:17)
[2021-06-04] MEDS: Multivitamin TABLET 1 TAB PO (09:17)
[2021-06-04] MEDS: Sevelamer Carbonate Tablet 800 MG TABLET PO ×3 (09:17→16:24)
[2021-06-04] MEDS: Bumetanide 1 MG TABLET PO (09:17)
[2021-06-04] MEDS: amLODIPine Besylate 2.5 MG TABLET PO (09:17)
[2021-06-04] MEDS: Heparin Sodium,Porcine 5,000 UNIT/ML VIAL 5000 UNIT SUBCUT ×3 (09:18→22:12)
[2021-06-04 11:06] VITALS: BP 179/76; PULSE 64; RESP 18; TEMP 36.2; O2SAT 95
[2021-06-04 11:36] LABS: Glucose, Whole Blood 170 mg/dL (60-115)
[2021-06-04] MEDS: Insulin Lispro 100 UNIT/ML 3 ML VIAL SUBCUT ×2 (11:45→22:13)
--- NOTE | 2021-06-04 14:42 | PM.PNNEP ---
Subjective Subjective Date of Service: 06/04/21 Interval history: no events Physical Exam Vital Signs: Vital Signs: Last Vital Signs Temp 97.2 F 06/04/21 11:06 Pulse 64 06/04/21 11:06 Resp 18 06/04/21 11:06 BP 179/76 H 06/04/21 11:06 Pulse Ox 95 06/04/21 11:06 BMI result Body Mass Index 27.0 Const: General: cooperative, comfortable, alert and awake; No confusion Orientation/consciousness: oriented to person, oriented to place, oriented to time, patient oriented x3 and No confusion Neck: Neck: Yes no meningeal signs Chest: Chest palpation & inspection: normal inspection of the chest Resp: Other: poor inspiratory effort Effort & Inspection: normal respiratory effort Auscultation: clear to auscultation bilaterally, no crackles, no rales, no rhonchi and no wheezes Cardio: Rate: regular rate Rhythm: regular rhythm Heart sounds: S1 normal heart sound present and S2 normal heart sound present GI: Inspection: Yes normal to inspection Palpation (GI): Soft to palpation, nontender, no guarding and not rigid Percussion: Yes normal to percussion Auscultation: normal bowel sounds Neuro: General: oriented to person, oriented to place, oriented to time, patient oriented x3, no meningeal signs and No confusion Cranial nerves: Yes Normal hearing present Extrem: General: No edema Objective Data Labs CBC & Chem 7: 06/02/21 06:19 06/04/21 08:01 Labs: Laboratory Results - last 24 hr 06/03/21 06/03/21 06/04/21 16:18 20:25 07:34 Creatinine Estim Creat Clear Calc Estimated GFR POC Glucose 156 H 154 H 70 06/04/21 06/04/21 08:01 11:04 Creatinine 5.61 H* Estim Creat Clear Calc 10.0 Estimated GFR 10 POC Glucose 170 H Microbiology Microbiology Results: Microbiology 06/01/21 18:24 Foot Left Gram Stain - Final 06/01/21 18:24 Foot Left Routine Culture - Final 06/01/21 18:24 Blood - Venous Blood Culture - Preliminary No growth after 48 hours. 06/01/21 18:24 Blood - Venous Blood Culture - Preliminary No growth after 48 hours. Procedures Date of Service Date of Service: 06/04/21 Assessment & Plan Assessment and plan (1) PAD (peripheral artery disease): Status: Acute (2) Diabetic foot infection: Status: Acute (3) Wound of left foot: Status: Acute (4) End-stage renal disease on hemodialysis: Status: Acute (5) High cholesterol: Status: Acute (6) Hypertension: Status: Acute (7) Diabetes: Status: Acute Plan Mr. Jean-Pierre Calderón is a 75-year-old gentleman with past medical history of HTN, HLD, DM2, Diabetic foot infections, CAD s/p CABG, ESRD HD MWF, Nephrogenic anemia and secondary hyperparathyroidism who presented to hospital with concerns of diabetic foot infection. 1. Diabetic left foot nonhealing ulcer with gangrene/ cellulitis dorsum of foot 2. ESRD 3. Nephrogenic Anemia - Ferritin 791, Hgb 9-10, Tsat 18% 4. Secondary Hyperparathyroidism - PTH 218, Phos 6-7, Ca 8.1 Plan: - HD per MWF schedule - protect AVF - ESRD restriced Diet - Vanco post HD - Calcitriol 0.5mcg MWF - EPO 20,000u weekly. - sevelamer 800mg TID Time Spent With Patient Time: Total time spent is greater than 50% in coordination of care (as documented) at patient's floor/unit and/or counseling patient: Progress Note: Quality Stroke Does the patient have a stroke diagnosis?: No
[2021-06-04 15:41] VITALS: BP 182/76; PULSE 62; RESP 18; TEMP 36.4; O2SAT 95
[2021-06-04 16:26] LABS: Glucose, Whole Blood 105 mg/dL (60-115)
[2021-06-04 19:45] VITALS: BP 138/60; PULSE 64; RESP 14; TEMP 36.7; O2SAT 98
[2021-06-04 21:27] LABS: Glucose, Whole Blood 195 mg/dL (60-115)
[2021-06-04] MEDS: Atorvastatin Calcium 40 MG TABLET PO (22:12)
[2021-06-04] MEDS: amLODIPine Besylate 5 MG TABLET PO (22:12)
[2021-06-04] MEDS: Insulin Glargine,Hum.rec.anlog 100 UNIT/ML 10 ML VIAL 8 UNIT SUBCUT (22:13)
[2021-06-04 23:25] VITALS: BP 150/74; PULSE 65; RESP 18; TEMP 36.6; O2SAT 94
[2021-06-05] VITALS (10 sets, daily range): BP systolic 153–191; BP diastolic 58–80; PULSE 56–63; RESP 16–20; TEMP 36.1–36.8; O2SAT 94–98
[2021-06-05] MEDS: Heparin Sodium,Porcine 5,000 UNIT/ML VIAL 5000 UNIT SUBCUT ×3 (06:37→22:58)
[2021-06-05] MEDS: 0.9 % Sodium Chloride Flush 3 ML SYRINGE IVFLUSH (07:24)
[2021-06-05 07:27] LABS: Glucose, Whole Blood 59 mg/dL (60-115)
[2021-06-05] MEDS: Piperacillin Sodium/Tazobactam 2.25 GM in 0.9 % Sodium Chloride 50 ML IV ×2 (07:44→16:55)
[2021-06-05] MEDS: amLODIPine Besylate 2.5 MG TABLET PO (07:45)
[2021-06-05] MEDS: Aspirin Enteric Coated 81 MG TABLET.DR PO (07:45)
[2021-06-05] MEDS: UrsodioL 300 MG CAPSULE PO ×2 (07:45→21:12)
[2021-06-05] MEDS: Bumetanide 1 MG TABLET PO (07:45)
[2021-06-05] MEDS: Losartan Potassium 25 MG TABLET PO (07:45)
[2021-06-05 08:10] LABS: Glucose, Whole Blood 137 mg/dL (60-115)
[2021-06-05] MEDS: Dextrose 5 % and 0.9 % NaCl 1,000 ML 100 ML IVCONT ×2 (09:06→16:15)
--- NOTE | 2021-06-05 09:51 | MHC.CM.PN ---
Addendum entered by Maryana Nguyen 06/05/21 09:57: patient recived hemodialysis here on saturday and again today saturday , he goes for his hemo dialysis t--sat at 11 am [facility] [address] [phone] Original Note: nurse casey saw operator note electronic medical record revised along with case discussed with staff nurse admitt with diabetic foot ulcer -(.Extremities left foot gangrene lateral margin of small toe extended towards dorsum of foot, significant dusky discoloration dorsum of foot extended towards lower leg, open wound lateral margin base of small toe with foul odor left lower extremity edema to mid leg. ( renal esrd/-hd,i d, gen surg, vascular surg following , iv abx discharge plan initial assessment home with and son has daily wire coater and new [employer] transportation family edhd - resumption of his dialysis services -pcp dr linda elam
--- NOTE | 2021-06-05 09:52 | MHC.CLN ---
NUTRITION PATIENT WITH DIABETIC FOOT INFECTION. RECEIVES HEMODIALYSIS THREE TIMES WEEKLY. CURRENT DIET=NPO. WHEN DIET RESUMES, RECOMMEND THERAPEUTIC DIET FOR DIABETES AND HEMODIALYSIS: DIABETIC 2000 KCAL, 2 GRAM SODIUM, LOW PHOSPHORUS, LOW POTASSIUM.
--- NOTE | 2021-06-05 10:04 | PM.PNNEP ---
Subjective Subjective Date of Service: 06/05/21 Interval history: Currently on HD. Hemodynamics stable on HD. D/W HD RN Physical Exam Vital Signs: Vital Signs: Last Vital Signs Temp 98.2 F 06/05/21 07:08 Pulse 56 06/05/21 07:08 Resp 18 06/05/21 07:08 BP 191/80 H 06/05/21 07:08 Pulse Ox 97 06/05/21 07:08 BMI result Body Mass Index 27.0 Const: General: no acute distress Eyes: EOM: EOMs intact bilaterally Neck: Neck: Yes supple Resp: Auscultation: diminished lung sounds Cardio: Rate: regular rate GI: Palpation (GI): Soft to palpation Neuro: General: moves all extremities Objective Data Labs CBC & Chem 7: 06/02/21 06:19 06/04/21 08:01 Labs: Laboratory Results - last 24 hr 06/04/21 06/04/21 06/04/21 11:04 16:21 21:15 POC Glucose 170 H 105 195 H 06/05/21 06/05/21 07:12 08:06 POC Glucose 59 L* 137 H Microbiology Microbiology Results: Microbiology 06/01/21 18:24 Foot Left Gram Stain - Final 06/01/21 18:24 Foot Left Routine Culture - Final 06/01/21 18:24 Blood - Venous Blood Culture - Preliminary No growth after 48 hours. 06/01/21 18:24 Blood - Venous Blood Culture - Preliminary No growth after 48 hours. Procedures Date of Service Date of Service: 06/05/21 Assessment & Plan Assessment and plan (1) End-stage renal disease on hemodialysis: Status: Acute Assessment and Plan: Mr. Jean-Pierre Calderón is a 75-year-old gentleman with past medical history of HTN, HLD, DM2, Diabetic foot infections, CAD s/p CABG, ESRD HD MWF, Nephrogenic anemia and secondary hyperparathyroidism who presented to hospital with concerns of diabetic foot infection. 1. Diabetic left foot? nonhealing ulcer with gangrene/ cellulitis dorsum of foot 2. ESRD 3. Nephrogenic Anemia - Ferritin 791, Hgb 9-10, Tsat 18% 4. Secondary Hyperparathyroidism - PTH 218, Phos 6-7, Ca 8.1 Plan: - HD per MWF schedule; Seen on HD - protect AVF; Renal Diet - Vanco post HD - Calcitriol 0.5mcg MWF - EPO 20,000u weekly. - sevelamer 800mg TID Time Spent With Patient Time: Total time spent is greater than 50% in coordination of care (as documented) at patient's floor/unit and/or counseling patient: Progress Note: Quality Stroke Does the patient have a stroke diagnosis?: No
--- NOTE | 2021-06-05 12:39 | ECG_ITS ---
Test Reason : CHEST PAIN Blood Pressure : / mmHG Vent. Rate : 055 BPM Atrial Rate : 055 BPM P-R Int : 160 ms QRS Dur : 104 ms QT Int : 488 ms P-R-T Axes : 006 -34 160 degrees QTc Int : 466 ms Sinus bradycardia with sinus arrhythmia Left axis deviation Left ventricular hypertrophy with repolarization abnormality ( Rgegory product ) Inferior infarct (cited on or before 01-JUN-2021) Abnormal ECG When compared with ECG of 01-JUN-2021 18:01, No significant change was found Referred By: August Swan Electronically Signed By:JASON MATHUR MD
--- NOTE | 2021-06-05 12:41 | HO.WOUNDCONS ---
History of Present Illness Data of Consult Service Date: 06/05/21 Requesting physician: Gerardo Garcia Primary Care Provider: Sanjana Guerrero MD HPI Reason for consult: lateral DFU 5th ray 75 year old male with ESRD on HD q MWF with report of gangrenous lateral foot ulcer in the setting of diabetes admitted for infection. On IV Vanco. CT scan shows no definite osteomyelitis or abscess. He is appropriately seeing Dr. Swan for extensive atherosclerosis. Patient not seen as he was sent to the procedure room immediately post HD and is there now. ED pictures reveal that this lateral foot ulcer invades tissues deeper than sq tissues. [facility] Medical History Anemia in chronic kidney disease Diabetes Diabetes mellitus, with long-term current use of insulin Diarrhea End-stage renal disease on hemodialysis High cholesterol Hypertension Microalbuminuria Mixed hyperlipidemia Family History Father Myocardial infarction Mother No problems noted. Surgical History History of eye surgery History of laminectomy History of surgery History of surgery on arm S/P CABG x 4 Social History Household Members: Children Housing: House Do you presently have visiting nurse or other home services: Yes (daughter/son research professional) Alcohol intake: never Patient Tobacco Use Status: Never used Tobacco e-Cigarette/Vaping Use: Never Used Second Hand Smoke Exposure: No service: No Current occupational status: retired and disabled Meds Allergies Allergy/AdvReac Type Severity Reaction Status Date / Time lisinopril Allergy Intermediate hyperkalemi Verified 06/01/21 13:25 a lidocaine [From LIDOPRIL] Allergy Mild COUGH Verified 06/01/21 13:25 prilocaine [From LIDOPRIL] Allergy Mild COUGH Verified 06/01/21 13:25 canagliflozin [Invokana] AdvReac Mild back pain Verified 06/01/21 13:25 Hydralazine-HCTZ Allergy Unknown Unknown Uncoded 05/02/21 12:09 Active Medications: Current Medications Acetaminophen (Acetaminophen 325 Mg Tablet) 650 mg PO Q6H PRN PRN Reason: Pain, Mild (Pain Scale 1-3) Last Admin: 06/03/21 21:44 Dose: 650 mg Documented by: Amlodipine Besylate (Amlodipine Besylate 2.5 Mg Tablet) 2.5 mg PO DAILY [facility]; Protocol Last Admin: 06/05/21 07:45 Dose: 2.5 mg Documented by: Amlodipine Besylate (Amlodipine Besylate 5 Mg Tablet) 5 mg PO BEDTIME [facility]; Protocol Last Admin: 06/04/21 22:12 Dose: 5 mg Documented by: Aspirin (Aspirin Enteric Coated 81 Mg Tablet.) 81 mg PO DAILY [facility] Last Admin: 06/05/21 07:45 Dose: 81 mg Documented by: Atorvastatin Calcium (Atorvastatin Calcium 40 Mg Tablet) 40 mg PO BEDTIME [facility] Last Admin: 06/04/21 22:12 Dose: 40 mg Documented by: Bumetanide (Bumetanide 1 Mg Tablet) 1 mg PO DAILY [facility]; Protocol Last Admin: 06/05/21 07:45 Dose: 1 mg Documented by: Calcitriol (Calcitriol 0.25 Mcg Capsule) 0.5 mcg PO MoWeFr [facility] Last Admin: 06/02/21 17:55 Dose: Not Given Documented by: Carvedilol (Carvedilol 25 Mg Tablet) 25 mg PO BID [facility]; Protocol Last Admin: 06/05/21 07:47 Dose: Not Given Documented by: Dextrose (Dextrose 50 % 25 Gm/50 Ml Vial) 25 gm IVPUSH Q15M PRN; Protocol PRN Reason: per Hypoglycemia Standing Ord. Last Admin: 06/05/21 07:24 Dose: 25 gm Documented by: Glucose (Glucose Gel 15 Gm Gel..Gram.) 15 gm PO Q15M PRN; Protocol PRN Reason: per Hypoglycemia Standing Ord. Heparin Sodium (Porcine) (Heparin Sodium,Porcine 5,000 Unit/Ml Vial) 5,000 unit SUBCUT Q8H [facility] Last Admin: 06/05/21 06:37 Dose: 5,000 unit Documented by: Vancomycin HCl 500 mg/ Sodium (Chloride) 110 mls @ 110 mls/hr IV MoWeFr@2000 [facility] Last Infusion: 06/02/21 22:29 Dose: Infused Documented by: Piperacillin Sod/Tazobactam (Sod 2.25 gm/ Sodium Chloride) 50 mls @ 100 mls/hr IV Q8H [facility] Last Infusion: 06/05/21 09:07 Dose: Infused Documented by: Dextrose/Sodium Chloride (D5ns) 1,000 mls @ 100 mls/hr IVCONT .Q10H [facility] Last Admin: 06/05/21 09:06 Dose: 100 mls/hr Documented by: Insulin Glargine (Insulin Glargine,Hum.Rec.Anlog 100 Unit/Ml 10 Ml Vial) 8 unit SUBCUT BEDTIME [facility] Last Admin: 06/04/21 22:13 Dose: 8 unit Documented by: Insulin Human Lispro (Insulin Lispro 100 Unit/Ml 3 Ml Vial) 0 unit SUBCUT QIDACHS [facility]; Protocol Last Admin: 06/05/21 07:33 Dose: Not Given Documented by: Losartan Potassium (Losartan Potassium 25 Mg Tablet) 25 mg PO DAILY [facility]; Protocol Last Admin: 06/05/21 07:45 Dose: 25 mg Documented by: Melatonin (Melatonin 3 Mg Tablet) 6 mg PO BEDTIME PRN PRN Reason: Insomnia Multivitamins/Vitamin C (Multivitamin Tablet) 1 tab PO DAILY [facility] Last Admin: 06/05/21 07:47 Dose: Not Given Documented by: Pharmacy Consult (Consult Rx Perform Med Rec) 1 each MISCELLANE ONCE PRN PRN Reason: Consult order Pharmacy Consult (Consult Rx Vancomycin Dosing) 1 each MISCELLANE DAILY PRN PRN Reason: Consult order Senna (Sennosides 8.6 Mg Tablet) 17.2 mg PO BEDTIME PRN PRN Reason: Constipation Sevelamer Carbonate (Sevelamer Carbonate Tablet 800 Mg Tablet) 800 mg PO TIDWM [facility] Last Admin: 06/05/21 07:46 Dose: Not Given Documented by: Sodium Chloride (0.9 % Sodium Chloride Flush 3 Ml Syringe) 3 ml IVFLUSH QSHIFT [facility] Last Admin: 06/05/21 07:24 Dose: 3 ml Documented by: Temazepam (Temazepam 15 Mg Capsule) 15 mg PO BEDTIME PRN PRN Reason: Insomnia Ursodiol (Ursodiol 300 Mg Capsule) 300 mg PO BID [facility] Last Admin: 06/05/21 07:45 Dose: 300 mg Documented by: Home Medications Medication Instructions Recorded Confirmed Last Taken Type sevelamer carbonate 800 mg tablet 800 mg PO TID 01/22/20 06/01/21 06/01/21 History amlodipine 5 mg tablet 2.5 mg PO DAILY 06/01/21 06/01/21 06/01/21 History amlodipine 5 mg tablet 5 mg PO BEDTIME 06/01/21 06/01/21 05/31/21 History aspirin 81 mg tablet,delayed 1 tab PO DAILY 06/01/21 06/01/21 06/01/21 History release atorvastatin 40 mg tablet 40 mg PO BEDTIME 06/01/21 06/01/21 05/31/21 History carvedilol 25 mg tablet 1 tab PO BID 06/01/21 06/01/21 06/01/21 History ergocalciferol (vitamin D2) 1,250 1 cap PO FR 06/01/21 06/01/21 06/01/21 History mcg (50,000 unit) capsule (Vitamin D2) tramadol 50 mg tablet 50 mg PO BID-TID PRN 06/01/21 06/01/21 06/01/21 History ursodiol 300 mg capsule 1 cap PO BID 06/01/21 06/01/21 06/01/21 History Physical Exam Vital Signs and Narrative: Vital Signs: Last Vital Signs Temp 98.2 F 06/05/21 07:08 Pulse 56 06/05/21 07:08 Resp 18 06/05/21 07:08 BP 191/80 H 06/05/21 07:08 Pulse Ox 97 06/05/21 07:08 BMI result Body Mass Index 27.0 Results Labs CBC and Chem 7: 06/02/21 06:19 06/04/21 08:01 Labs: Laboratory Results - last 24 hr 06/04/21 06/04/21 06/05/21 16:21 21:15 07:12 POC Glucose 105 195 H 59 L* 06/05/21 08:06 POC Glucose 137 H Assessment and Plan (1) Wound of left foot: Status: Acute Plan 75 year old male with lateral 5th metatarsal head wound, [employer] grade 3 on IV vancomycin confounded by renal disease on dialysis, appropriately being managed by Dr. Swan. He is in the angio suite right now. Recommend silver alginate cut to fit to size of the wound to be changed every 48 hours. Seek outpatient wound clinic care for continued recommendations if desired. Consider more sensitive MRI if suspicion of osteomyelitis, as antibiotic length of treatment would usually change in the presence of bone infection. Thank you for the courtesy of this consultation.
[2021-06-05 12:54] LABS: Glucose, Whole Blood 85 mg/dL (60-115)
--- NOTE | 2021-06-05 14:38 | P.OP_ITS ---
Operative Note Operative Note Date of Service: 06/05/21 Narrative: Angiogram report from [facility] Preoperative diagnosis: Atherosclerosis of left lower extremity with nonhealing ulcer Postoperative diagnosis: Same Procedure: 1. Ultrasound-guided right common femoral access 2. Aortogram with leftlower extremity runoff Surgeon:August Swan M.D., FACS, RPVI Whittling Room Operator:None Anesthesia: Local with moderate conscious sedation. Total intraservice moderate sedation time was 36 minutes. I monitored the patient's level of consciousness and physiologic status continuously throughout the procedure. Specimens:none Drains:none Estimated blood loss: Less than 10 ml Implant: None Indications: 75-year-old gentleman with a history of diabetes and end-stage renal disease presents for nonhealing ulcer left lower extremity. He now presents for endovascular intervention. The patient has signed the informed consent after reviewing risks, complications, benefits, and alternatives previously discussed with the patient. The patient was given the opportunity to ask any additional questions or voice any concerns. All questions were answered to the patient's satisfaction. Procedure in detail: Patient was brought to the angiography suite prior to which a time-out was called for patient identification and site verification. Bilateral groins were prepped and draped in the standard surgical fashion. Under ultrasound guidance right common femoral was punctured with micro puncture needle and wire. Subsequently a precision 4 Green[place]ic sheath was then placed. Bentson wire was advanced to the level of the aorta. 5 Green[place]ic Flush catheter was brought up and parked at the level of the renal arteries. Aortogram was then undertaken. Catheter was brought down to the level of the iliac bifurcation. Iliacs were subsequently imaged. Catheter was then brought in up and over to the left side SFA. Runoff study was then undertaken. We then excha nged out for an 035 glidewire Advantage in was able to advance this down to the level of the popliteal. Over this we were able to bring an 035 now be cross catheter. Once this was all accomplished we did a focused runoff study of the below-knee vessels. No intervention was indicated. Catheter wire sheath was removed. Direct pressure was held for 10 minutes. Patient tolerated the procedure well. Returned to recovery with stable vitals. Interpretation of films: 1. Ultrasound demonstrates appropriate femoral puncture. Image of which was saved. 2. Aortogram demonstrates appropriate caliber aorta. Minimal disease. Appropriate take-off of the renals. 3. Iliac images demonstrate calcified but no focal stenosis noted 4. Left Leg Common femoral artery: Calcified but no stenosis Profundus Femoris: No significant disease Superficial femoral artery: Patent and calcified with minimal disease all the way down to the level of the popliteal Popliteal artery (p1,p2,p3): Mild to moderate stenosis at the below-knee popliteal P1 and P2 segments were normal Anterior tibial artery: Total occlusion with multiple collaterals known in vessel Peroneal artery: Total occlusion multiple collateral Posterior tibial artery: Total occlusion multiple collaterals Dorsalis pedis/plantar arch: None Conclusion: 1. Successful diagnostic angiogram. Total occlusion of the below-knee vessels. Patient will require most likely a below-knee amputation. 2. Anticoagulation status: No change This note is constructed using voice recognition software. While every effort has been made to ensure accuracy, senior sharepoint architect errors may have been included. Thank you for allowing me to participate in the care of your patient. Yours sincerely, August Swan MD, FACS, R.P.V.I.
--- NOTE | 2021-06-05 15:39 | P.PNIM_ITS ---
Subjective Subjective Date of Service: 06/05/21 Interval History: seen while receiving hemodialysis, offers no acute complaints, this morning noted to have a low blood sugar of 59 improved with 1 amp D50, denies lightheadedness dizziness, no chest pain, no palpitation, is NPO for vascular procedure. Review of Systems Review of Systems: Yes all other systems are reviewed and are negative Physical Exam Vital Signs: Vital Signs: Last Vital Signs Temp 97 F 06/05/21 15:20 Pulse 56 06/05/21 15:20 Resp 16 06/05/21 15:20 BP 172/69 H 06/05/21 15:20 Pulse Ox 96 06/05/21 15:20 BMI result Body Mass Index 27.0 Const: Other: General? awake alert,in no acute distress. HEENT? anicteric sclerae Neck no JVD. CVS? regular rate rhythm, Respiratory lungs clear to auscultation, no respiratory distress, no wheeze, no rhonchi. Gastrointestinal abdomen soft, nontender, bowel sounds audible Extremities? left foot gangrene lateral margin of small toe extended towards dorsum of foot, significant dusky discoloration dorsum of foot extended towards lower leg, open wound lateral margin base of small toe with foul odor left lower extremity edema to mid leg, no change in examination Neuro nonfocal, decreased position sense Skin no rash Objective Data Active Medications Acetaminophen (Acetaminophen 325 Mg Tablet) 650 mg PO Q6H PRN PRN Reason: Pain, Mild (Pain Scale 1-3) Last Admin: 06/03/21 21:44 Dose: 650 mg Documented by: WILL Amlodipine Besylate (Amlodipine Besylate 2.5 Mg Tablet) 2.5 mg PO DAILY [facility]; Protocol Last Admin: 06/05/21 07:45 Dose: 2.5 mg Documented by: MALIK Amlodipine Besylate (Amlodipine Besylate 5 Mg Tablet) 5 mg PO BEDTIME [facility]; Protocol Last Admin: 06/04/21 22:12 Dose: 5 mg Documented by: RODOLFO Aspirin (Aspirin Enteric Coated 81 Mg Tablet.) 81 mg PO DAILY [facility] Last Admin: 06/05/21 07:45 Dose: 81 mg Documented by: MALIK Atorvastatin Calcium (Atorvastatin Calcium 40 Mg Tablet) 40 mg PO BEDTIME [facility] Last Admin: 06/04/21 22:12 Dose: 40 mg Documented by: RODOLFO Bumetanide (Bumetanide 1 Mg Tablet) 1 mg PO DAILY [facility]; Protocol Last Admin: 06/05/21 07:45 Dose: 1 mg Documented by: MALIK Calcitriol (Calcitriol 0.25 Mcg Capsule) 0.5 mcg PO MoWeFr [facility] Last Admin: 06/05/21 14:17 Dose: Not Given Documented by: MALIK Non-Admin Reason: Off Unit: Surgery Carvedilol (Carvedilol 25 Mg Tablet) 25 mg PO BID [facility]; Protocol Last Admin: 06/05/21 07:47 Dose: Not Given Documented by: MALIK Non-Admin Reason: Decreased Heart Rate Dextrose (Dextrose 50 % 25 Gm/50 Ml Vial) 25 gm IVPUSH Q15M PRN; Protocol PRN Reason: per Hypoglycemia Standing Ord. Last Admin: 06/05/21 07:24 Dose: 25 gm Documented by: MALIK Glucose (Glucose Gel 15 Gm Gel..Gram.) 15 gm PO Q15M PRN; Protocol PRN Reason: per Hypoglycemia Standing Ord. Heparin Sodium (Porcine) (Heparin Sodium,Porcine 5,000 Unit/Ml Vial) 5,000 unit SUBCUT Q8H [facility] Last Admin: 06/05/21 06:37 Dose: 5,000 unit Documented by: RODOLFO Vancomycin HCl 500 mg/ Sodium (Chloride) 110 mls @ 110 mls/hr IV MoWeFr@2000 [facility] Last Infusion: 06/02/21 22:29 Dose: 0 mls/hr Documented by: ROBINSON Piperacillin Sod/Tazobactam (Sod 2.25 gm/ Sodium Chloride) 50 mls @ 100 mls/hr IV Q8H [facility] Last Infusion: 06/05/21 09:07 Dose: 100 mls/hr Documented by: MALIK Dextrose/Sodium Chloride (D5ns) 1,000 mls @ 100 mls/hr IVCONT .Q10H [facility] Last Admin: 06/05/21 09:06 Dose: 100 mls/hr Documented by: MALIK Insulin Glargine (Insulin Glargine,Hum.Rec.Anlog 100 Unit/Ml 10 Ml Vial) 8 unit SUBCUT BEDTIME [facility] Last Admin: 06/04/21 22:13 Dose: 8 unit Documented by: RODOLFO Insulin Human Lispro (Insulin Lispro 100 Unit/Ml 3 Ml Vial) 0 unit SUBCUT QIDACHS [facility]; Protocol Last Admin: 06/05/21 12:49 Dose: Not Given Documented by: MALIK Non-Admin Reason: Off Unit: Surgery Losartan Potassium (Losartan Potassium 25 Mg Tablet) 25 mg PO DAILY [facility]; Protocol Last Admin: 06/05/21 07:45 Dose: 25 mg Documented by: MALIK Melatonin (Melatonin 3 Mg Tablet) 6 mg PO BEDTIME PRN PRN Reason: Insomnia Morphine Sulfate (Morphine Sulfate 4 Mg/Ml Cartridge) 4 mg IVPUSH Q2H PRN; Protocol PRN Reason: Pain, Severe (Pain Scale 7-10) Multivitamins/Vitamin C (Multivitamin Tablet) 1 tab PO DAILY [facility] Last Admin: 06/05/21 07:47 Dose: Not Given Documented by: MALIK Non-Admin Reason: NPO Oxycodone HCl (Oxycodone Hcl Immed Release 5 Mg Tablet) 5 mg PO Q4H PRN PRN Reason: Pain, Moderate (Pain Scale 4-6 Pharmacy Consult (Consult Rx Perform Med Rec) 1 each MISCELLANE ONCE PRN PRN Reason: Consult order Pharmacy Consult (Consult Rx Vancomycin Dosing) 1 each MISCELLANE DAILY PRN PRN Reason: Consult order Senna (Sennosides 8.6 Mg Tablet) 17.2 mg PO BEDTIME PRN PRN Reason: Constipation Sevelamer Carbonate (Sevelamer Carbonate Tablet 800 Mg Tablet) 800 mg PO TIDWM [facility] Last Admin: 06/05/21 12:49 Dose: Not Given Documented by: MALIK Non-Admin Reason: Off Unit: Surgery Sodium Chloride (0.9 % Sodium Chloride Flush 3 Ml Syringe) 3 ml IVFLUSH QSHIFT [facility] Last Admin: 06/05/21 07:24 Dose: 3 ml Documented by: MALIK Temazepam (Temazepam 15 Mg Capsule) 15 mg PO BEDTIME PRN PRN Reason: Insomnia Ursodiol (Ursodiol 300 Mg Capsule) 300 mg PO BID [facility] Last Admin: 06/05/21 07:45 Dose: 300 mg Documented by: MALIK Labs CBC & Chem 7: 06/02/21 06:19 06/04/21 08:01 Labs: Laboratory Results - last 24 hr 06/04/21 06/04/21 06/05/21 16:21 21:15 07:12 POC Glucose 105 195 H 59 L* 06/05/21 06/05/21 08:06 12:49 POC Glucose 137 H 85 Assessment and Plan (1) PAD (peripheral artery disease): Status: Acute (2) Diabetic foot infection: Status: Acute (3) Wound of left foot: Status: Acute (4) End-stage renal disease on hemodialysis: Status: Acute (5) High cholesterol: Status: Acute (6) Hypertension: Status: Acute (7) Diabetes: Status: Acute Plan 75-year-old old male with a past medical history of hypertension, hyperlipidemia, diabetes, diabetic foot infection, CAD status post CABG, ESRD on hemodialysis; anemia of chronic disease, presented to the hospital with chief complaint of non healing diabetic foot infection.? Diabetic left foot nonhealing ulcer with gangrene/ cellulitis dorsum of foot gradually progressing left foot ulcer, not improving with wound care on IV vancomycin and Zosyn day 4 renally dose WBC normalized, blood cultures patient afebrile CT foot showed no radiographic evidence of osteomyelitis, no bone destruction or fluid collection patient underwent diagnostic angiogram, found to have Total occlusion of the below-knee vessels, Dr. Swan recommend a below-knee amputation. History of diabetes: blood sugars low this morning due to NPO, takes Lantus 10 units b.i.d. at home will resume diabetic diet, currently on Lantus 10 units at bedtime and Insulin sliding scale, follow blood sugar closely, DC IV fluid History of ESRD: continue hemodialysis, continue home medication sevelamer, and Bumex. follow Nephrology input. History of hypertension elevated blood pressure on multiple antihypertensive, Coreg, Cozaar, Bumex and Norvasc, will discuss medication adjustment with Nephrology Hyperlipidemia: Continue Lipitor anemia of chronic disease stable hematocrit follow CBC coronary artery disease no chest pain continue aspirin Lipitor and Coreg DVT prophylaxis:? Subcu heparin Code status: Full code Need for inaptient: found to have total occlusion of below-knee vessel will need below-knee amputation. Quality Stroke Does the patient have a stroke diagnosis?: No VTE Prior VTE?: No VTE Risk Level:: Medical - moderate - high VTE Device Contraindication: Treatment Not Indicated VTE Drug Contraindication: N/A - Med Ordered
[2021-06-05 16:04] LABS: Glucose, Whole Blood 55 mg/dL (60-115)
[2021-06-05 16:04] LABS: Glucose, Whole Blood 86 mg/dL (60-115)
[2021-06-05] MEDS: Sevelamer Carbonate Tablet 800 MG TABLET PO (16:54)
[2021-06-05 17:10] LABS: Glucose, Whole Blood 193 mg/dL (60-115)
--- NOTE | 2021-06-05 17:12 | PC.NURSE ---
bilateral pedal and post tibial pulses positive with doppler,bilateral femoral pulses positive with doppler
[2021-06-05 18:13] LABS: Creatinine Clr Calc Pharmacy 12.4; Estimated Glomerular Filt Rate 13
[2021-06-05 18:16] LABS: Vancomycin Random 10.2 mcg/mL (15-20)
--- NOTE | 2021-06-05 18:32 | HE.PHANOTE ---
Addendum entered by Ailyn Bonilla RPh 06/07/21 18:44: Trough at 13.2, continue with 500mg MWF post dialysis. Next trough 06/09 @ 1800 Original Note: Vancomycin Dosing Addendum Vancomycin Random level 10.2 post dialysis. Pt to receive 500 mg dose tonight and next random scheduled for Saturday post dialysis.
--- NOTE | 2021-06-05 18:39 | PC.NURSE ---
P vanco level 10.2 ,Cr 4.[address] Garcia made aware E awaiting new orders
[2021-06-05] MEDS: carvediloL 25 MG TABLET PO (19:04)
[2021-06-05] MEDS: amLODIPine Besylate 5 MG TABLET PO (19:04)
[2021-06-05] MEDS: vancomycin HCL 500 MG in 0.9 % Sodium Chloride 100 ML 110 MG IV (21:12)
[2021-06-05] MEDS: Atorvastatin Calcium 40 MG TABLET PO (21:13)
[2021-06-05 21:14] LABS: Glucose, Whole Blood 209 mg/dL (60-115)
[2021-06-05] MEDS: Insulin Glargine,Hum.rec.anlog 100 UNIT/ML 10 ML VIAL 8 UNIT SUBCUT (21:19)
[2021-06-05] MEDS: Insulin Lispro 100 UNIT/ML 3 ML VIAL SUBCUT (21:20)
[2021-06-06] VITALS: BP 144/48; PULSE 62; RESP 18; TEMP 36.8; O2SAT 99
[2021-06-06] MEDS: Piperacillin Sodium/Tazobactam 2.25 GM in 0.9 % Sodium Chloride 50 ML IV ×4 (00:43→23:02)
[2021-06-06] MEDS: 0.9 % Sodium Chloride Flush 3 ML SYRINGE IVFLUSH ×4 (00:51→23:12)
[2021-06-06] MEDS: oxyCODONE HCl Immed Release 5 MG TABLET PO ×3 (00:56→20:57)
[2021-06-06 04:00] VITALS: BP 136/60; PULSE 59; RESP 18; TEMP 36.3; O2SAT 98
[2021-06-06 07:20] VITALS: BP 176/68; PULSE 83; RESP 17; TEMP 36.3; O2SAT 96
[2021-06-06 07:40] LABS: Glucose, Whole Blood 57 mg/dL (60-115)
[2021-06-06] MEDS: Heparin Sodium,Porcine 5,000 UNIT/ML VIAL 5000 UNIT SUBCUT ×3 (07:45→23:03)
[2021-06-06] MEDS: Sevelamer Carbonate Tablet 800 MG TABLET PO ×3 (08:09→16:12)
[2021-06-06 08:15] LABS: Glucose, Whole Blood 88 mg/dL (60-115)
--- NOTE | 2021-06-06 09:51 | HO.VASCPN ---
Subjective Subjective Date of Service: 06/06/21 Patient reports: no new complaints and feels better Interval history: Patient is postop day 1 status post diagnostic angiogram. He reports no issues after the angiogram. Doing relatively the same. Pain appears to be reasonably controlled. He was tolerating regular diet this morning. I visited him this morning with conference specialist present. Physical Exam Vital Signs: Vital Signs: Last Vital Signs Temp 97.3 F 06/06/21 07:20 Pulse 83 06/06/21 07:20 Resp 17 06/06/21 07:20 BP 176/68 H 06/06/21 07:20 Pulse Ox 96 06/06/21 07:20 BMI result Body Mass Index 27.0 Const: General: cooperative, healthy appearing and no acute distress Orientation/consciousness: oriented to person, oriented to place and oriented to time HEENT: Head: Yes normal to inspection Neck: Carotids: no bruits Chest: Chest palpation & inspection: normal inspection of the chest Resp: Effort & Inspection: normal respiratory effort and able to speak in complete sentences Auscultation: clear to auscultation bilaterally Cardio: Rate: regular rate Heart sounds: S1 normal heart sound present and S2 normal heart sound present Peripheral pulses: dorsalis pedis present ( Bilateral DP signals) GI: Inspection: Yes normal to inspection Skin: Other: cellulitis and necrosis of left lateral foot inclusive of 4th and 5th digits. General skin exam: no rashes or lesions noted Wounds: wounds noted Neuro: General: oriented to person, oriented to place, oriented to time and CN's II-XI intact bilaterally Extrem: General: Yes normal to inspection, Yes full ROM and Yes no clubbing, cyanosis or edema Psych: Appearance: grossly normal and well kempt Speech and movement: Normal speech and movement present Affect: normal affect Progress Note: A&P Assessment and plan (1) PAD (peripheral artery disease): Status: Acute Assessment and Plan: In short patient has nonhealing ulcer of the left leg. Due to his diabetes and end-stage renal disease he has severe occlusive disease of the lower extremity. He has no named below-knee vessel. Unfortunately I do think that he will require a below-knee amputation. I did have that difficult discussion with him this morning. I did request a cardiology risk stratification as he did have some EKG issues in the perioperative area. Once again he will require below-knee amputation and will hope to schedule him later this week. Thank you for allowing us to assist in his care. If there are any questions or concerns please do not hesitate to contact us Fall Risk Details Current Medications: Current Medications Acetaminophen (Acetaminophen 325 Mg Tablet) 650 mg PO Q6H PRN PRN Reason: Pain, Mild (Pain Scale 1-3) Last Admin: 06/03/21 21:44 Dose: 650 mg Documented by: Amlodipine Besylate (Amlodipine Besylate 2.5 Mg Tablet) 2.5 mg PO DAILY [facility]; Protocol Last Admin: 06/05/21 07:45 Dose: 2.5 mg Documented by: Amlodipine Besylate (Amlodipine Besylate 5 Mg Tablet) 5 mg PO BEDTIME [facility]; Protocol Last Admin: 06/05/21 19:04 Dose: 5 mg Documented by: Aspirin (Aspirin Enteric Coated 81 Mg Tablet.) 81 mg PO DAILY [facility] Last Admin: 06/05/21 07:45 Dose: 81 mg Documented by: Atorvastatin Calcium (Atorvastatin Calcium 40 Mg Tablet) 40 mg PO BEDTIME [facility] Last Admin: 06/05/21 21:13 Dose: 40 mg Documented by: Bumetanide (Bumetanide 1 Mg Tablet) 1 mg PO DAILY [facility]; Protocol Last Admin: 06/05/21 07:45 Dose: 1 mg Documented by: Calcitriol (Calcitriol 0.25 Mcg Capsule) 0.5 mcg PO MoWeFr [facility] Last Admin: 06/05/21 14:17 Dose: Not Given Documented by: Carvedilol (Carvedilol 25 Mg Tablet) 25 mg PO BID [facility]; Protocol Last Admin: 06/05/21 19:04 Dose: 25 mg Documented by: Dextrose (Dextrose 50 % 25 Gm/50 Ml Vial) 25 gm IVPUSH Q15M PRN; Protocol PRN Reason: per Hypoglycemia Standing Ord. Last Admin: 06/05/21 07:24 Dose: 25 gm Documented by: Glucose (Glucose Gel 15 Gm Gel..Gram.) 15 gm PO Q15M PRN; Protocol PRN Reason: per Hypoglycemia Standing Ord. Heparin Sodium (Porcine) (Heparin Sodium,Porcine 5,000 Unit/Ml Vial) 5,000 unit SUBCUT Q8H [facility] Last Admin: 06/06/21 07:45 Dose: 5,000 unit Documented by: Vancomycin HCl 500 mg/ Sodium (Chloride) 110 mls @ 110 mls/hr IV MoWeFr@1999 [facility] Last Infusion: 06/05/21 22:28 Dose: Infused Documented by: Piperacillin Sod/Tazobactam (Sod 2.25 gm/ Sodium Chloride) 50 mls @ 100 mls/hr IV Q8H [facility] Last Admin: 06/06/21 08:10 Dose: 100 mls/hr Documented by: Insulin Glargine (Insulin Glargine,Hum.Rec.Anlog 100 Unit/Ml 10 Ml Vial) 8 unit SUBCUT BEDTIME [facility] Last Admin: 06/05/21 21:19 Dose: 8 unit Documented by: Insulin Human Lispro (Insulin Lispro 100 Unit/Ml 3 Ml Vial) 0 unit SUBCUT QIDACHS [facility]; Protocol Last Admin: 06/06/21 08:36 Dose: Not Given Documented by: Losartan Potassium (Losartan Potassium 25 Mg Tablet) 25 mg PO DAILY [facility]; Protocol Last Admin: 06/05/21 07:45 Dose: 25 mg Documented by: Melatonin (Melatonin 3 Mg Tablet) 6 mg PO BEDTIME PRN PRN Reason: Insomnia Morphine Sulfate (Morphine Sulfate 4 Mg/Ml Cartridge) 4 mg IVPUSH Q2H PRN; Protocol PRN Reason: Pain, Severe (Pain Scale 7-10) Multivitamins/Vitamin C (Multivitamin Tablet) 1 tab PO DAILY [facility] Last Admin: 06/05/21 07:47 Dose: Not Given Documented by: Oxycodone HCl (Oxycodone Hcl Immed Release 5 Mg Tablet) 5 mg PO Q4H PRN PRN Reason: Pain, Moderate (Pain Scale 4-6 Last Admin: 06/06/21 00:56 Dose: 5 mg Documented by: Pharmacy Consult (Consult Rx Perform Med Rec) 1 each MISCELLANE ONCE PRN PRN Reason: Consult order Pharmacy Consult (Consult Rx Vancomycin Dosing) 1 each MISCELLANE DAILY PRN PRN Reason: Consult order Senna (Sennosides 8.6 Mg Tablet) 17.2 mg PO BEDTIME PRN PRN Reason: Constipation Sevelamer Carbonate (Sevelamer Carbonate Tablet 800 Mg Tablet) 800 mg PO TIDWM [facility] Last Admin: 06/06/21 08:09 Dose: 800 mg Documented by: Sodium Chloride (0.9 % Sodium Chloride Flush 3 Ml Syringe) 3 ml IVFLUSH QSHIFT [facility] Last Admin: 06/06/21 00:51 Dose: 3 ml Documented by: Temazepam (Temazepam 15 Mg Capsule) 15 mg PO BEDTIME PRN PRN Reason: Insomnia Ursodiol (Ursodiol 300 Mg Capsule) 300 mg PO BID [facility] Last Admin: 06/05/21 21:12 Dose: 300 mg Documented by: Time Spent With Patient Time: Total time spent is greater than 50% in coordination of care (as documented) at patient's floor/unit and/or counseling patient: Procedures Date of Service Date of Service: 06/06/21 Quality Stroke Does the patient have a stroke diagnosis?: No VTE Prior VTE?: No VTE Risk Level:: Medical - moderate - high VTE Device Contraindication: Treatment Not Indicated VTE Drug Contraindication: N/A - Med Ordered
[2021-06-06] MEDS: Bumetanide 1 MG TABLET PO (09:56)
[2021-06-06] MEDS: Aspirin Enteric Coated 81 MG TABLET.DR PO (09:56)
[2021-06-06] MEDS: UrsodioL 300 MG CAPSULE PO ×2 (09:57→21:09)
[2021-06-06] MEDS: Losartan Potassium 25 MG TABLET PO (09:57)
[2021-06-06] MEDS: amLODIPine Besylate 2.5 MG TABLET PO (09:58)
[2021-06-06] MEDS: carvediloL 25 MG TABLET PO ×2 (09:58→20:56)
[2021-06-06] MEDS: Multivitamin TABLET 1 TAB PO (09:58)
--- NOTE | 2021-06-06 11:15 | CA_ITS ---
Acquisition Time: 2021-06-07 08:05:46 Total Exercise Time: 00:02:00 Test Indications: Screening for CAD Medications: SEE EMAR Protocol: LEXISCAN Max HR: 068 BPM 46% of Pred: 146 BPM Max BP: 128/064 mmHG Max Work Load: 1.0 METS Pharmacological stress test with Lexiscan injection, while sitting and kicking his legs, without anginal symptoms, without arrythmia, with normotensive response to injection, with nondiagnostic EKG for ischemia. Nuclear images pending. Test reviewed with Dr Vicente. Referred By: Keith Vicente Overread By: MATHEW BROWN
--- NOTE | 2021-06-06 11:26 | P.CONCA_ITS ---
History of Present Illness History of Present Illness Date of Service: 06/06/21 Requesting physician: August Swan Chief complaint: Pre-operative CVS risk stratification Narrative: I was consulted to see Jean-Pierre in cardiology consultation today as planned to undergo amputation of left lower extremity below knee. This is as he has nonhealing ulcer with poor circulation that cannot be revascularized. He is minimally active. He is not a great historian and denies any active chest pain currently. He has prior history of coronary artery bypass grafting 2010, 5 vessel. No follow-up in cardiology. No recent ischemic workup. He is minimally active. He denies any symptoms of heart failure. Getting all medications. Blood pressure is stable. He has a history enroll disease on hemodialysis. Review of Systems Review of Systems: Yes Unobtainable due to mental status PMFSH Past Medical History Medical History Anemia in chronic kidney disease Diabetes Diabetes mellitus, with long-term current use of insulin Diarrhea End-stage renal disease on hemodialysis High cholesterol Hypertension Microalbuminuria Mixed hyperlipidemia Family History Family History Father Myocardial infarction Mother No problems noted. Family history: reviewed and not pertinent Surgical History Surgical History History of eye surgery History of laminectomy History of surgery History of surgery on arm S/P CABG x 4 Social History Social History Household Members: Children Housing: House Do you presently have visiting nurse or other home services: Yes (daughter/son coding consultant) Alcohol intake: never Patient Tobacco Use Status: Never used Tobacco e-Cigarette/Vaping Use: Never Used Second Hand Smoke Exposure: No service: No Current occupational status: retired and disabled Meds Allergies Allergy/AdvReac Type Severity Reaction Status Date / Time lisinopril Allergy Intermediate hyperkalemi Verified 06/01/21 13:25 a lidocaine [From LIDOPRIL] Allergy Mild COUGH Verified 06/01/21 13:25 prilocaine [From LIDOPRIL] Allergy Mild COUGH Verified 06/01/21 13:25 canagliflozin [Invokana] AdvReac Mild back pain Verified 06/01/21 13:25 Hydralazine-HCTZ Allergy Unknown Unknown Uncoded 05/02/21 12:09 Active Medications: Current Medications Acetaminophen (Acetaminophen 325 Mg Tablet) 650 mg PO Q6H PRN PRN Reason: Pain, Mild (Pain Scale 1-3) Last Admin: 06/03/21 21:44 Dose: 650 mg Documented by: Amlodipine Besylate (Amlodipine Besylate 2.5 Mg Tablet) 2.5 mg PO DAILY [facility]; Protocol Last Admin: 06/06/21 09:58 Dose: 2.5 mg Documented by: Amlodipine Besylate (Amlodipine Besylate 5 Mg Tablet) 5 mg PO BEDTIME [facility]; Protocol Last Admin: 06/05/21 19:04 Dose: 5 mg Documented by: Aspirin (Aspirin Enteric Coated 81 Mg Tablet.) 81 mg PO DAILY [facility] Last Admin: 06/06/21 09:56 Dose: 81 mg Documented by: Atorvastatin Calcium (Atorvastatin Calcium 40 Mg Tablet) 40 mg PO BEDTIME [facility] Last Admin: 06/05/21 21:13 Dose: 40 mg Documented by: Bumetanide (Bumetanide 1 Mg Tablet) 1 mg PO DAILY [facility]; Protocol Last Admin: 06/06/21 09:56 Dose: 1 mg Documented by: Calcitriol (Calcitriol 0.25 Mcg Capsule) 0.5 mcg PO MoWeFr [facility] Last Admin: 06/05/21 14:17 Dose: Not Given Documented by: Carvedilol (Carvedilol 25 Mg Tablet) 25 mg PO BID [facility]; Protocol Last Admin: 06/06/21 09:58 Dose: 25 mg Documented by: Dextrose (Dextrose 50 % 25 Gm/50 Ml Vial) 25 gm IVPUSH Q15M PRN; Protocol PRN Reason: per Hypoglycemia Standing Ord. Last Admin: 06/05/21 07:24 Dose: 25 gm Documented by: Glucose (Glucose Gel 15 Gm Gel..Gram.) 15 gm PO Q15M PRN; Protocol PRN Reason: per Hypoglycemia Standing Ord. Heparin Sodium (Porcine) (Heparin Sodium,Porcine 5,000 Unit/Ml Vial) 5,000 unit SUBCUT Q8H [facility] Last Admin: 06/06/21 07:45 Dose: 5,000 unit Documented by: Vancomycin HCl 500 mg/ Sodium (Chloride) 110 mls @ 110 mls/hr IV MoWeFr@2000 [facility] Last Infusion: 06/05/21 22:28 Dose: Infused Documented by: Piperacillin Sod/Tazobactam (Sod 2.25 gm/ Sodium Chloride) 50 mls @ 100 mls/hr IV Q8H [facility] Last Infusion: 06/06/21 10:05 Dose: Infused Documented by: Insulin Glargine (Insulin Glargine,Hum.Rec.Anlog 100 Unit/Ml 10 Ml Vial) 8 unit SUBCUT BEDTIME [facility] Last Admin: 06/05/21 21:19 Dose: 8 unit Documented by: Insulin Human Lispro (Insulin Lispro 100 Unit/Ml 3 Ml Vial) 0 unit SUBCUT QIDACHS [facility]; Protocol Last Admin: 06/06/21 08:36 Dose: Not Given Documented by: Losartan Potassium (Losartan Potassium 25 Mg Tablet) 25 mg PO DAILY [facility]; Protocol Last Admin: 06/06/21 09:57 Dose: 25 mg Documented by: Melatonin (Melatonin 3 Mg Tablet) 6 mg PO BEDTIME PRN PRN Reason: Insomnia Morphine Sulfate (Morphine Sulfate 4 Mg/Ml Cartridge) 4 mg IVPUSH Q2H PRN; Protocol PRN Reason: Pain, Severe (Pain Scale 7-10) Multivitamins/Vitamin C (Multivitamin Tablet) 1 tab PO DAILY [facility] Last Admin: 06/06/21 09:58 Dose: 1 tab Documented by: Oxycodone HCl (Oxycodone Hcl Immed Release 5 Mg Tablet) 5 mg PO Q4H PRN PRN Reason: Pain, Moderate (Pain Scale 4-6 Last Admin: 06/06/21 00:56 Dose: 5 mg Documented by: Pharmacy Consult (Consult Rx Perform Med Rec) 1 each MISCELLANE ONCE PRN PRN Reason: Consult order Pharmacy Consult (Consult Rx Vancomycin Dosing) 1 each MISCELLANE DAILY PRN PRN Reason: Consult order Senna (Sennosides 8.6 Mg Tablet) 17.2 mg PO BEDTIME PRN PRN Reason: Constipation Sevelamer Carbonate (Sevelamer Carbonate Tablet 800 Mg Tablet) 800 mg PO TIDWM [facility] Last Admin: 06/06/21 08:09 Dose: 800 mg Documented by: Sodium Chloride (0.9 % Sodium Chloride Flush 3 Ml Syringe) 3 ml IVFLUSH QSHIFT [facility] Last Admin: 06/06/21 00:51 Dose: 3 ml Documented by: Temazepam (Temazepam 15 Mg Capsule) 15 mg PO BEDTIME PRN PRN Reason: Insomnia Ursodiol (Ursodiol 300 Mg Capsule) 300 mg PO BID [facility] Last Admin: 06/06/21 09:57 Dose: 300 mg Documented by: Home Medications Medication Instructions Recorded Confirmed Last Taken Type sevelamer carbonate 800 mg tablet 800 mg PO TID 01/22/20 06/01/21 06/01/21 History amlodipine 5 mg tablet 2.5 mg PO DAILY 06/01/21 06/01/21 06/01/21 History amlodipine 5 mg tablet 5 mg PO BEDTIME 06/01/21 06/01/21 05/31/21 History aspirin 81 mg tablet,delayed 1 tab PO DAILY 06/01/21 06/01/21 06/01/21 History release atorvastatin 40 mg tablet 40 mg PO BEDTIME 06/01/21 06/01/21 05/31/21 History carvedilol 25 mg tablet 1 tab PO BID 06/01/21 06/01/21 06/01/21 History ergocalciferol (vitamin D2) 1,250 1 cap PO FR 06/01/21 06/01/21 06/01/21 History mcg (50,000 unit) capsule (Vitamin D2) tramadol 50 mg tablet 50 mg PO BID-TID PRN 06/01/21 06/01/21 06/01/21 History ursodiol 300 mg capsule 1 cap PO BID 06/01/21 06/01/21 06/01/21 History Physical Exam Vital Signs: Vital Signs: Last Vital Signs Temp 97.3 F 06/06/21 07:20 Pulse 83 06/06/21 07:20 Resp 17 06/06/21 07:20 BP 176/68 H 06/06/21 07:20 Pulse Ox 96 06/06/21 07:20 BMI result Body Mass Index 27.0 Const: General: cooperative, comfortable, no acute distress, alert and awake Nutritional Appearance: average body habitus HEENT: Head: Yes normocephalic and Yes atraumatic Neck: Neck: Yes trachea midline, Yes supple and Yes no JVD Resp: Effort & Inspection: normal respiratory effort Auscultation: clear to auscultation bilaterally Cardio: Jugular venous distension: no JVD Palpation: normal PMI Rate: regular rate Rhythm: regular rhythm Heart sounds: S1 normal heart sound present, S2 normal heart sound present, no click, no gallops and no murmurs GI: Auscultation: normal bowel sounds Skin: General skin exam: no rashes or lesions noted Neuro: General: no focal motor deficits Extrem: General: Yes no clubbing, cyanosis or edema Objective Labs and Meds Result diagrams: 06/02/21 06:19 06/05/21 17:46 Lab results: Laboratory Results - last 24 hr 06/05/21 06/05/21 06/05/21 12:49 15:02 15:38 Creatinine Estim Creat Clear Calc Estimated GFR POC Glucose 85 55 L* 86 Random Vancomycin 06/05/21 06/05/21 06/05/21 17:06 17:46 17:46 Creatinine 4.53 H* Estim Creat Clear Calc 12.4 Estimated GFR 13 POC Glucose 193 H Random Vancomycin 10.2 L 06/05/21 06/06/21 06/06/21 21:09 07:29 08:11 Creatinine Estim Creat Clear Calc Estimated GFR POC Glucose 209 H 57 L* 88 Random Vancomycin Assessment and Plan (1) Preoperative cardiovascular examination: Status: Acute Preoperative cardiovascular risk stratification this elderly gentleman with a remote coronary artery bypass grafting more than 10 years ago to undergo intermediate risk surgery with below-knee amputation under general anesthesia with poor functionality. Needs to evaluate for myocardial ischemia prior to surgery for further risk stratification. This was discussed with him. He did not show much understanding about it. For now will schedule for rest study today and stress study tomorrow and further risk stratify based on the findings. Continue current medical therapy. Will follow up with the you after the stress testing Procedures Date of Service Date of Service: 06/06/21
--- NOTE | 2021-06-06 11:36 | PM.PNNEP ---
Subjective Subjective Date of Service: 06/06/21 Interval history: Events noted. All recent data reviewed Physical Exam Vital Signs: Vital Signs: Last Vital Signs Temp 97.3 F 06/06/21 07:20 Pulse 83 06/06/21 07:20 Resp 17 06/06/21 07:20 BP 176/68 H 06/06/21 07:20 Pulse Ox 96 06/06/21 07:20 BMI result Body Mass Index 27.0 Const: General: no acute distress Orientation/consciousness: patient oriented x3 Eyes: EOM: EOMs intact bilaterally Neck: Neck: Yes supple Resp: Auscultation: diminished lung sounds Cardio: Rate: regular rate GI: Palpation (GI): Soft to palpation Neuro: General: patient oriented x3 and moves all extremities Objective Data Labs CBC & Chem 7: 06/02/21 06:19 06/05/21 17:46 Labs: Laboratory Results - last 24 hr 06/05/21 06/05/21 06/05/21 12:49 15:02 15:38 Creatinine Estim Creat Clear Calc Estimated GFR POC Glucose 85 55 L* 86 Random Vancomycin 06/05/21 06/05/21 06/05/21 17:06 17:46 17:46 Creatinine 4.53 H* Estim Creat Clear Calc 12.4 Estimated GFR 13 POC Glucose 193 H Random Vancomycin 10.2 L 06/05/21 06/06/21 06/06/21 21:09 07:29 08:11 Creatinine Estim Creat Clear Calc Estimated GFR POC Glucose 209 H 57 L* 88 Random Vancomycin Microbiology Microbiology Results: Microbiology 06/01/21 18:24 Foot Left Gram Stain - Final 06/01/21 18:24 Foot Left Routine Culture - Final 06/01/21 18:24 Blood - Venous Blood Culture - Preliminary No growth after 48 hours. 06/01/21 18:24 Blood - Venous Blood Culture - Preliminary No growth after 48 hours. Procedures Date of Service Date of Service: 06/06/21 Assessment & Plan Assessment and plan (1) End-stage renal disease on hemodialysis: Status: Acute Assessment and Plan: Mr. Jean-Pierre Calderón is a 75-year-old gentleman with past medical history of HTN, HLD, DM2, Diabetic foot infections, CAD s/p CABG, ESRD HD MWF, Nephrogenic anemia and secondary hyperparathyroidism who presented to hospital with concerns of diabetic foot infection. 1. Diabetic left foot? nonhealing ulcer with gangrene/ cellulitis dorsum of foot 2. ESRD 3. Nephrogenic Anemia - Ferritin 791, Hgb 9-10, Tsat 18% 4. Secondary Hyperparathyroidism - PTH 218, Phos 6-7, Ca 8.1 Plan: - HD per MWF schedule;Due tomorrow - protect AVF; Renal Diet - Vanco post HD - Calcitriol 0.5mcg MWF - EPO 20,000u weekly. - sevelamer 800mg TID - Vascular recommended BKA Time Spent With Patient Time: Total time spent is greater than 50% in coordination of care (as documented) at patient's floor/unit and/or counseling patient: Progress Note: Quality Stroke Does the patient have a stroke diagnosis?: No
[2021-06-06 11:38] VITALS: BP 112/67; PULSE 72; RESP 18; TEMP 36.4; O2SAT 98
[2021-06-06 11:45] LABS: Glucose, Whole Blood 140 mg/dL (60-115)
--- NOTE | 2021-06-06 13:09 | MHC.CM.PN ---
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 DISCHARGE PLAN HOME WITH [facility] [phone] FOR NSG /HOME PT VS BELOW KNEE AMP ON MAY NEED SHORT TERM REHAB AWAIT PHYSICAL THERAPY EVALUATION LIVES WITH HIS AND SON RESUMPTION OF HIS DAILY ARCHAEOLOGIST SERVICES TRANSPORTTION TO BE DETERMINED [OST SURGERY
--- NOTE | 2021-06-06 15:24 | HO.PM.IMPN ---
Subjective Subjective Date of Service: 06/06/21 Interval History: again noted to have blood sugars in high 50s this morning patient remained asymptomatic according to patient he is eating well denies nausea , vomiting, no diarrhea, no acute issues overnight, no change in left lower extremity discomfort, persistent drainage from nonhealing left foot ulcer. Review of Systems C [employer] no headache, no dizziness CVS no chest pain, no palpatation GI no nausea, no vomiting Review of Systems: Yes all other systems are reviewed and are negative Physical Exam Vital Signs: Vital Signs: Last Vital Signs Temp 97.5 F 06/06/21 11:38 Pulse 72 06/06/21 11:38 Resp 18 06/06/21 11:38 BP 112/67 06/06/21 11:38 Pulse Ox 98 06/06/21 11:38 BMI result Body Mass Index 27.0 Const: Other: General? awake alert,in no acute distress. HEENT? anicteric sclerae Neck no JVD. CVS? regular rate rhythm, Respiratory lungs clear to auscultation, no respiratory distress, no wheeze, no rhonchi. Gastrointestinal abdomen soft, nontender, bowel sounds audible Extremities? left foot gangrene lateral margin of small toe extended towards dorsum of foot, significant dusky discoloration dorsum of foot extended towards lower leg, open wound lateral margin base of small toe with foul odor edema improved. Neuro nonfocal, decreased position sense Skin no rash Objective Data Active Medications Acetaminophen (Acetaminophen 325 Mg Tablet) 650 mg PO Q6H PRN PRN Reason: Pain, Mild (Pain Scale 1-3) Last Admin: 06/03/21 21:44 Dose: 650 mg Documented by: WILL Amlodipine Besylate (Amlodipine Besylate 2.5 Mg Tablet) 2.5 mg PO DAILY [facility]; Protocol Last Admin: 06/06/21 09:58 Dose: 2.5 mg Documented by: LEANNE Comments: BP 174/80, pulse 64. Amlodipine Besylate (Amlodipine Besylate 5 Mg Tablet) 5 mg PO BEDTIME [facility]; Protocol Last Admin: 06/05/21 19:04 Dose: 5 mg Documented by: DAREK Aspirin (Aspirin Enteric Coated 81 Mg Tablet.) 81 mg PO DAILY [facility] Last Admin: 06/06/21 09:56 Dose: 81 mg Documented by: LEANNE Atorvastatin Calcium (Atorvastatin Calcium 40 Mg Tablet) 40 mg PO BEDTIME [facility] Last Admin: 06/05/21 21:13 Dose: 40 mg Documented by: DAREK Bumetanide (Bumetanide 1 Mg Tablet) 1 mg PO DAILY [facility]; Protocol Last Admin: 06/06/21 09:56 Dose: 1 mg Documented by: LEANNE Comments: 174/80, pulse 64 Calcitriol (Calcitriol 0.25 Mcg Capsule) 0.5 mcg PO MoWeFr [facility] Last Admin: 06/05/21 14:17 Dose: Not Given Documented by: MALIK Non-Admin Reason: Off Unit: Surgery Carvedilol (Carvedilol 25 Mg Tablet) 25 mg PO BID [facility]; Protocol Last Admin: 06/06/21 09:58 Dose: 25 mg Documented by: LEANNE Comments: BP 174/80, pulse 64. Dextrose (Dextrose 50 % 25 Gm/50 Ml Vial) 25 gm IVPUSH Q15M PRN; Protocol PRN Reason: per Hypoglycemia Standing Ord. Last Admin: 06/05/21 07:24 Dose: 25 gm Documented by: MALIK Glucose (Glucose Gel 15 Gm Gel..Gram.) 15 gm PO Q15M PRN; Protocol PRN Reason: per Hypoglycemia Standing Ord. Heparin Sodium (Porcine) (Heparin Sodium,Porcine 5,000 Unit/Ml Vial) 5,000 unit SUBCUT Q8H [facility] Last Admin: 06/06/21 07:45 Dose: 5,000 unit Documented by: LEANNE Vancomycin HCl 500 mg/ Sodium (Chloride) 110 mls @ 110 mls/hr IV MoWeFr@2000 [facility] Last Infusion: 06/05/21 22:28 Dose: 0 mls/hr Documented by: DAREK Piperacillin Sod/Tazobactam (Sod 2.25 gm/ Sodium Chloride) 50 mls @ 100 mls/hr IV Q8H [facility] Last Infusion: 06/06/21 10:05 Dose: 100 mls/hr Documented by: LEANNE Insulin Glargine (Insulin Glargine,Hum.Rec.Anlog 100 Unit/Ml 10 Ml Vial) 8 unit SUBCUT BEDTIME [facility] Last Admin: 06/05/21 21:19 Dose: 8 unit Documented by: HO.BEIT Insulin Human Lispro (Insulin Lispro 100 Unit/Ml 3 Ml Vial) 0 unit SUBCUT QIDACHS [facility]; Protocol Last Admin: 06/06/21 11:46 Dose: Not Given Documented by: LEANNE Non-Admin Reason: No Insulin Coverage Losartan Potassium (Losartan Potassium 25 Mg Tablet) 25 mg PO DAILY [facility]; Protocol Last Admin: 06/06/21 09:57 Dose: 25 mg Documented by: LEANNE Comments: bp 174/80, pulse 64 Melatonin (Melatonin 3 Mg Tablet) 6 mg PO BEDTIME PRN PRN Reason: Insomnia Morphine Sulfate (Morphine Sulfate 4 Mg/Ml Cartridge) 4 mg IVPUSH Q2H PRN; Protocol PRN Reason: Pain, Severe (Pain Scale 7-10) Multivitamins/Vitamin C (Multivitamin Tablet) 1 tab PO DAILY [facility] Last Admin: 06/06/21 09:58 Dose: 1 tab Documented by: LEANNE Oxycodone HCl (Oxycodone Hcl Immed Release 5 Mg Tablet) 5 mg PO Q4H PRN PRN Reason: Pain, Moderate (Pain Scale 4-6 Last Admin: 06/06/21 13:58 Dose: 5 mg Documented by: MALIK Pharmacy Consult (Consult Rx Perform Med Rec) 1 each MISCELLANE ONCE PRN PRN Reason: Consult order Pharmacy Consult (Consult Rx Vancomycin Dosing) 1 each MISCELLANE DAILY PRN PRN Reason: Consult order Senna (Sennosides 8.6 Mg Tablet) 17.2 mg PO BEDTIME PRN PRN Reason: Constipation Sevelamer Carbonate (Sevelamer Carbonate Tablet 800 Mg Tablet) 800 mg PO TIDWM [facility] Last Admin: 06/06/21 11:44 Dose: 800 mg Documented by: LEANNE Sodium Chloride (0.9 % Sodium Chloride Flush 3 Ml Syringe) 3 ml IVFLUSH QSHIFT [facility] Last Admin: 06/06/21 12:05 Dose: 3 ml Documented by: MALIK Temazepam (Temazepam 15 Mg Capsule) 15 mg PO BEDTIME PRN PRN Reason: Insomnia Ursodiol (Ursodiol 300 Mg Capsule) 300 mg PO BID [facility] Last Admin: 06/06/21 09:57 Dose: 300 mg Documented by: LEANNE Labs CBC & Chem 7: 06/02/21 06:19 06/05/21 17:46 Labs: Laboratory Results - last 24 hr 06/05/21 06/05/21 06/05/21 15:02 15:38 17:06 Estim Creat Clear Calc Estimated GFR POC Glucose 55 L* 86 193 H Random Vancomycin 06/05/21 06/05/21 06/05/21 17:46 17:46 21:09 Estim Creat Clear Calc 12.4 Estimated GFR 13 POC Glucose 209 H Random Vancomycin 10.2 L 06/06/21 06/06/21 06/06/21 07:29 08:11 11:40 Estim Creat Clear Calc Estimated GFR POC Glucose 57 L* 88 140 H Random Vancomycin Assessment and Plan (1) PAD (peripheral artery disease): Status: Acute (2) Diabetic foot infection: Status: Acute (3) Wound of left foot: Status: Acute (4) End-stage renal disease on hemodialysis: Status: Acute (5) High cholesterol: Status: Acute (6) Hypertension: Status: Acute (7) Diabetes: Status: Acute Plan 75-year-old old male with a past medical history of hypertension, hyperlipidemia, diabetes, diabetic foot infection, CAD status post CABG, ESRD on hemodialysis; anemia of chronic disease, presented to the hospital with chief complaint of non healing diabetic foot infection.? Diabetic left foot nonhealing ulcer with gangrene/ cellulitis dorsum of foot gradually progressing left foot ulcer, not improving with wound care on IV vancomycin and Zosyn day 5 renally dose WBC normalized, blood cultures x2 neg, patient afebrile CT foot showed no radiographic evidence of osteomyelitis, no bone destruction or fluid collection patient underwent diagnostic angiogram, found to have Total occlusion of the below-knee vessels, Dr. Swan recommend a below-knee amputation, scheduled for 06/08/2021 patient undergoing cardiac stress test for cardiac risk stratification. History of diabetes: blood sugars low this morning eating well, takes Lantus 10 units b.i.d. at home, receiving Lantus 8 units at bedtime on diabetic diet, and Insulin sliding scale, follow blood sugar closely, will DC Lantus History of ESRD: continue hemodialysis, continue home medication sevelamer, and Bumex. follow Nephrology input. History of hypertension on multiple antihypertensive, Coreg, Cozaar, Bumex and Norvasc, blood pressure better controlled today, but had elevated blood pressures in last several days will discuss medication adjustment with Nephrology Hyperlipidemia: Continue Lipitor anemia of chronic disease stable hematocrit follow CBC coronary artery disease no chest pain continue aspirin Lipitor and Coreg DVT prophylaxis:? Subcu heparin Code status: Full code Need for inaptient: found to have total occlusion of below-knee vessel will need below-knee amputation is scheduled for 06/08. Quality Stroke Does the patient have a stroke diagnosis?: No VTE Prior VTE?: No VTE Risk Level:: Medical - moderate - high VTE Device Contraindication: Treatment Not Indicated VTE Drug Contraindication: N/A - Med Ordered
[2021-06-06 15:51] LABS: Glucose, Whole Blood 140 mg/dL (60-115)
[2021-06-06 19:16] VITALS: BP 134/58; PULSE 67; RESP 18; TEMP 36.4; O2SAT 97
[2021-06-06 20:47] LABS: Glucose, Whole Blood 184 mg/dL (60-115)
[2021-06-06] MEDS: Atorvastatin Calcium 40 MG TABLET PO (20:57)
[2021-06-06] MEDS: Insulin Lispro 100 UNIT/ML 3 ML VIAL SUBCUT (20:57)
[2021-06-06] MEDS: amLODIPine Besylate 5 MG TABLET PO (20:57)
[2021-06-06] MEDS: Morphine Sulfate 4 MG/ML CARTRIDGE IVPUSH (23:02)
[2021-06-07] VITALS: PULSE 54; RESP 18; TEMP 36.3; O2SAT 95
[2021-06-07 03:59] VITALS: BP 140/76; PULSE 60; RESP 18; TEMP 36.3; O2SAT 97
[2021-06-07] MEDS: Heparin Sodium,Porcine 5,000 UNIT/ML VIAL 5000 UNIT SUBCUT ×3 (06:15→22:47)
[2021-06-07 07:09] VITALS: BP 155/86; PULSE 58; RESP 17; TEMP 36.6; O2SAT 98
[2021-06-07] MEDS: 0.9 % Sodium Chloride Flush 3 ML SYRINGE IVFLUSH ×2 (07:21→16:28)
[2021-06-07 07:27] LABS: Glucose, Whole Blood 58 mg/dL (60-115)
[2021-06-07 07:52] LABS: Glucose, Whole Blood 152 mg/dL (60-115)
[2021-06-07] MEDS: Sevelamer Carbonate Tablet 800 MG TABLET PO ×3 (09:44→16:26)
--- NOTE | 2021-06-07 10:08 | MHC.CM.PN ---
Patient is not yet medically cleared for dc ( BKA/Scheduled for tomorrow);Home with services vs STR, pending PT eval is the goal and CM will continue to follow.
[2021-06-07] MEDS: Morphine Sulfate 4 MG/ML CARTRIDGE IVPUSH (11:40)
--- NOTE | 2021-06-07 11:43 | P.PNVS_ITS ---
Subjective Subjective Date of Service: 06/07/21 Patient reports: no new complaints and feels better Interval history: Patient seen and examined. No significant events overnight. Reports that he is doing relatively well. Pain reasonably controlled. He was undergoing dialysis at the time of my visit. He is also set for stress test for today. Physical Exam Vital Signs: Vital Signs: Last Vital Signs Temp 97.8 F 06/07/21 07:09 Pulse 58 06/07/21 07:09 Resp 17 06/07/21 07:09 BP 155/86 H 06/07/21 07:09 Pulse Ox 98 06/07/21 07:09 BMI result Body Mass Index 27.0 Const: General: cooperative, healthy appearing and no acute distress Orientation/consciousness: oriented to person, oriented to place and oriented to time HEENT: Head: Yes normal to inspection Neck: Carotids: no bruits Chest: Chest palpation & inspection: normal inspection of the chest Resp: Effort & Inspection: normal respiratory effort and able to speak in co mplete sentences Auscultation: clear to auscultation bilaterally Cardio: Rate: regular rate Heart sounds: S1 normal heart sound present and S2 normal heart sound present GI: Inspection: Yes normal to inspection Skin: General skin exam: no rashes or lesions noted Wounds: wounds noted (Left click foot gangrene 4th and 5th digits extending on back) Neuro: General: oriented to person, oriented to place, oriented to time and CN's II-XI intact bilaterally Extrem: General: Yes normal to inspection, Yes full ROM and Yes no clubbing, cyanosis or edema Psych: Appearance: grossly normal and well kempt Speech and movement: Normal speech and movement present Affect: normal affect Progress Note: A&P Assessment and plan (1) PAD (peripheral artery disease): Status: Acute Assessment and Plan: In short patient has severe peripheral vascular disease. The patient will require a left below-knee amputation. He has no named vessels below the knee. He will not heal anything distal to that. This was discussed in detail with the patient with interpreter translator present yesterday. In addition it was discussed with the patient's daughter. They were in agreement and will move forward with this. Thank you for allowing us to assist in his care. If there are any questions or concerns please do not hesitate to contact us. Fall Risk Details Current Medications: Current Medications Acetaminophen (Acetaminophen 325 Mg Tablet) 650 mg PO Q6H PRN PRN Reason: Pain, Mild (Pain Scale 1-3) Last Admin: 06/03/21 21:44 Dose: 650 mg Documented by: Amlodipine Besylate (Amlodipine Besylate 2.5 Mg Tablet) 2.5 mg PO DAILY [facility]; Protocol Last Admin: 06/06/21 09:58 Dose: 2.5 mg Documented by: Amlodipine Besylate (Amlodipine Besylate 5 Mg Tablet) 5 mg PO BEDTIME [facility]; Protocol Last Admin: 06/06/21 20:57 Dose: 5 mg Documented by: Aspirin (Aspirin Enteric Coated 81 Mg Tablet.) 81 mg PO DAILY [facility] Last Admin: 06/06/21 09:56 Dose: 81 mg Documented by: Atorvastatin Calcium (Atorvastatin Calcium 40 Mg Tablet) 40 mg PO BEDTIME [facility] Last Admin: 06/06/21 20:57 Dose: 40 mg Documented by: Bumetanide (Bumetanide 1 Mg Tablet) 1 mg PO DAILY [facility]; Protocol Last Admin: 06/06/21 09:56 Dose: 1 mg Documented by: Calcitriol (Calcitriol 0.25 Mcg Capsule) 0.5 mcg PO MoWeFr [facility] Last Admin: 06/05/21 14:17 Dose: Not Given Documented by: Carvedilol (Carvedilol 25 Mg Tablet) 25 mg PO BID [facility]; Protocol Last Admin: 06/06/21 20:56 Dose: 25 mg Documented by: Dextrose (Dextrose 50 % 25 Gm/50 Ml Vial) 25 gm IVPUSH Q15M PRN; Protocol PRN Reason: per Hypoglycemia Standing Ord. Last Admin: 06/07/21 07:15 Dose: 25 gm Documented by: Glucose (Glucose Gel 15 Gm Gel..Gram.) 15 gm PO Q15M PRN; Protocol PRN Reason: per Hypoglycemia Standing Ord. Heparin Sodium (Porcine) (Heparin Sodium,Porcine 5,000 Unit/Ml Vial) 5,000 unit SUBCUT Q8H [facility] Last Admin: 06/07/21 06:15 Dose: 5,000 unit Documented by: Vancomycin HCl 500 mg/ Sodium (Chloride) 110 mls @ 110 mls/hr IV MoWeFr@2000 [facility] Last Infusion: 06/05/21 22:28 Dose: Infused Documented by: Piperacillin Sod/Tazobactam (Sod 2.25 gm/ Sodium Chloride) 50 mls @ 100 mls/hr IV Q8H [facility] Last Infusion: 06/07/21 00:07 Dose: Infused Documented by: Insulin Human Lispro (Insulin Lispro 100 Unit/Ml 3 Ml Vial) 0 unit SUBCUT QIDACHS [facility]; Protocol Last Admin: 06/07/21 07:21 Dose: Not Given Documented by: Losartan Potassium (Losartan Potassium 25 Mg Tablet) 25 mg PO DAILY [facility]; Protocol Last Admin: 06/06/21 09:57 Dose: 25 mg Documented by: Melatonin (Melatonin 3 Mg Tablet) 6 mg PO BEDTIME PRN PRN Reason: Insomnia Morphine Sulfate (Morphine Sulfate 4 Mg/Ml Cartridge) 4 mg IVPUSH Q2H PRN; Protocol PRN Reason: Pain, Severe (Pain Scale 7-10) Last Admin: 06/06/21 23:02 Dose: 4 mg Documented by: Multivitamins/Vitamin C (Multivitamin Tablet) 1 tab PO DAILY [facility] Last Admin: 06/06/21 09:58 Dose: 1 tab Documented by: Oxycodone HCl (Oxycodone Hcl Immed Release 5 Mg Tablet) 5 mg PO Q4H PRN PRN Reason: Pain, Moderate (Pain Scale 4-6 Last Admin: 06/06/21 20:57 Dose: 5 mg Documented by: Pharmacy Consult (Consult Rx Perform Med Rec) 1 each MISCELLANE ONCE PRN PRN Reason: Consult order Pharmacy Consult (Consult Rx Vancomycin Dosing) 1 each MISCELLANE DAILY PRN PRN Reason: Consult order Senna (Sennosides 8.6 Mg Tablet) 17.2 mg PO BEDTIME PRN PRN Reason: Constipation Sevelamer Carbonate (Sevelamer Carbonate Tablet 800 Mg Tablet) 800 mg PO TIDWM [facility] Last Admin: 06/07/21 09:44 Dose: 800 mg Documented by: Sodium Chloride (0.9 % Sodium Chloride Flush 3 Ml Syringe) 3 ml IVFLUSH QSHIFT [facility] Last Admin: 06/07/21 07:21 Dose: 3 ml Documented by: Ursodiol (Ursodiol 300 Mg Capsule) 300 mg PO BID [facility] Last Admin: 06/06/21 21:09 Dose: 300 mg Documented by: Time Spent With Patient Time: Total time spent is greater than 50% in coordination of care (as documented) at patient's floor/unit and/or counseling patient: Procedures Date of Service Date of Service: 06/07/21 Quality Stroke Does the patient have a stroke diagnosis?: No VTE Prior VTE?: No VTE Risk Level:: Medical - moderate - high VTE Device Contraindication: Treatment Not Indicated VTE Drug Contraindication: N/A - Med Ordered
--- NOTE | 2021-06-07 11:48 | P.PNCA_ITS ---
Subjective Subjective Date of Service: 06/07/21 <LUIS MANUEL Kovacs - Last Filed: 06/07/21 12:06> 06/07/21 <Keith Vicente MD - Last Filed: 06/07/21 13:36> Principal diagnosis: preop cardiovascular exam, CABG hx <LUIS MANUEL Kovacs - Last Filed: 06/07/21 12:06> Interval history: Seen at 0830 in stress lab. Today he report that he is feeling well. He denies any chest pains, sob, palpitations, dizziness. Left foot with gauze dressing over it. Right leg and foot without reported issues. <LUIS MANUEL Kovacs - Last Filed: 06/07/21 12:06> Review of Systems Review of Systems as above <LUIS MANUEL Kovacs - Last Filed: 06/07/21 12:06> Yes all other systems are reviewed and are negative <LUIS MANUEL Kovacs - Last Filed: 06/07/21 12:06> Physical Exam Vital Signs: Last Vital Signs Temp 97.8 F 06/07/21 07:09 Pulse 58 06/07/21 07:09 Resp 17 06/07/21 07:09 BP 155/86 H 06/07/21 07:09 Pulse Ox 98 06/07/21 07:09 BMI result Body Mass Index 27.0 <LUIS MANUEL Kovacs - Last Filed: 06/07/21 12:06> Const General: cooperative, no acute distress, alert and awake <LUIS MANUEL Kovacs - Last Filed: 06/07/21 12:06> Orientation/consciousness: patient oriented x3 <LUIS MANUEL Kovacs - Last Filed: 06/07/21 12:06> Neck Neck: Yes normal visual inspection and Yes no JVD <LUIS MANUEL Kovacs Last Filed: 06/07/21 12:06> Resp Effort & Inspection: normal respiratory effort, able to speak in complete sentences and not labored <LUIS MANUEL Kovacs Last Filed: 06/07/21 12:06> Auscultation: clear to auscultation bilaterally, no rales, no rhonchi and no wheezes <Judy RiosLUIS MANUEL - Last Filed: 06/07/21 12:06> Cardio Rate: regular rate <Judy RiosLUIS MANUEL - Last Filed: 06/07/21 12:06> Rhythm: regular rhythm <Judy RiosLUIS MANUEL - Last Filed: 06/07/21 12:06> Heart sounds: S1 normal heart sound present and S2 normal heart sound present <Judy IssaLUIS MANUEL burns - Last Filed: 06/07/21 12:06> Neuro General: patient oriented x3 <Judy IssaLUIS MANUEL burns - Last Filed: 06/07/21 12:06> Extrem General: No edema <Judy IssaLUIS MANUEL burns - Last Filed: 06/07/21 12:06> Objective Labs and Meds Result diagrams: : 06/02/21 06:19 06/05/21 17:46 <Judy Tilley LUIS MANUEL Rios - Last Filed: 06/07/21 12:06> Lab results: Laboratory Results - last 24 hr 06/06/21 06/06/21 06/07/21 15:09 19:23 07:08 POC Glucose 140 H 184 H 58 L* 06/07/21 07:48 POC Glucose 152 H <Judy IssaLUIS MANUEL burns - Last Filed: 06/07/21 12:06> Progress Note: A&P Assessment and plan (1) Preoperative cardiovascular examination: Status: Acute <Judy IssaLUIS MANUEL burns - Last Filed: 06/07/21 12:06> Assessment and Plan: Preop for left BKA. Hx of CAD, 5 vessel CABG 2010. No reports of anginal symptoms. On appropriate cardiac meds including aspirin, atorvastatin, carvedilol. EKG done 06/05 showing SB, LVH with repolarization abn, inferior and anterior Q waves, rate 55. Last Echo in our system done 12/24/17 showing EF 55- 60%, grade II diastolic dysfunction, no valve abn. Nuclear stress test being completed today. Surgical risk to be determined once results are known. <Judy Tilley LUIS MANUEL Rios - Last Filed: 06/07/21 12:06> Preop for left BKA. Hx of CAD, 5 vessel CABG 2010. No reports of anginal symptoms. On appropriate cardiac meds including aspirin, atorvastatin, carvedilol. EKG done 06/05 showing SB, LVH with repolarization abn, inferior and anterior Q waves, rate 55. Last Echo in our system done 12/24/17 showing EF 55- 60%, grade II diastolic dysfunction, no valve abn. Nuclear stress test being completed today. Surgical risk to be determined once results are known. Patient seen and case discussed with Judy Rios. Myocardial perfusion imaging shows low risk findings with no major large territory ischemia. This point in time patient is optimized to undergo amputation, below-knee under general anesthesia with low to intermediate risk. Continue aggressive medical therapy postoperatively including continuing his anti-platelet therapy, blood pressure therapy and diabetic therapy. Recommend continued follow-up with Cardiology if possible. Continue carvedilol in the perioperative. It. Continue statin therapy in the perioperative. At this point time will sign of the case. <Keith Vicente MD - Last Filed: 06/07/21 13:36> (2) PAD (peripheral artery disease): Status: Acute <LUIS MANUEL Kovacs - Last Filed: 06/07/21 12:06> Assessment and Plan: Follows with Dr Swan <LUIS MANUEL Kovacs - Last Filed: 06/07/21 12:06> (3) Diabetic foot infection: Status: Acute <LUIS MANUEL Kovacs - Last Filed: 06/07/21 12:06> Fall Risk Details Current Medications: Current Medications Acetaminophen (Acetaminophen 325 Mg Tablet) 650 mg PO Q6H PRN PRN Reason: Pain, Mild (Pain Scale 1-3) Last Admin: 06/03/21 21:44 Dose: 650 mg Documented by: Amlodipine Besylate (Amlodipine Besylate 2.5 Mg Tablet) 2.5 mg PO DAILY [facility]; Protocol Last Admin: 06/06/21 09:58 Dose: 2.5 mg Documented by: Amlodipine Besylate (Amlodipine Besylate 5 Mg Tablet) 5 mg PO BEDTIME [facility]; Protocol Last Admin: 06/06/21 20:57 Dose: 5 mg Documented by: Aspirin (Aspirin Enteric Coated 81 Mg Tablet.) 81 mg PO DAILY [facility] Last Admin: 06/06/21 09:56 Dose: 81 mg Documented by: Atorvastatin Calcium (Atorvastatin Calcium 40 Mg Tablet) 40 mg PO BEDTIME [facility] Last Admin: 06/06/21 20:57 Dose: 40 mg Documented by: Bumetanide (Bumetanide 1 Mg Tablet) 1 mg PO DAILY [facility]; Protocol Last Admin: 06/06/21 09:56 Dose: 1 mg Documented by: Calcitriol (Calcitriol 0.25 Mcg Capsule) 0.5 mcg PO MoWeFr [facility] Last Admin: 06/05/21 14:17 Dose: Not Given Documented by: Carvedilol (Carvedilol 25 Mg Tablet) 25 mg PO BID [facility]; Protocol Last Admin: 06/06/21 20:56 Dose: 25 mg Documented by: Dextrose (Dextrose 50 % 25 Gm/50 Ml Vial) 25 gm IVPUSH Q15M PRN; Protocol PRN Reason: per Hypoglycemia Standing Ord. Last Admin: 06/07/21 07:15 Dose: 25 gm Documented by: Glucose (Glucose Gel 15 Gm Gel..Gram.) 15 gm PO Q15M PRN; Protocol PRN Reason: per Hypoglycemia Standing Ord. Heparin Sodium (Porcine) (Heparin Sodium,Porcine 5,000 Unit/Ml Vial) 5,000 unit SUBCUT Q8H [facility] Last Admin: 06/07/21 06:15 Dose: 5,000 unit Documented by: Vancomycin HCl 500 mg/ Sodium (Chloride) 110 mls @ 110 mls/hr IV MoWeFr@2000 [facility] Last Infusion: 06/05/21 22:28 Dose: Infused Documented by: Piperacillin Sod/Tazobactam (Sod 2.25 gm/ Sodium Chloride) 50 mls @ 100 mls/hr IV Q8H [facility] Last Infusion: 06/07/21 00:07 Dose: Infused Documented by: Insulin Human Lispro (Insulin Lispro 100 Unit/Ml 3 Ml Vial) 0 unit SUBCUT QIDACHS [facility]; Protocol Last Admin: 06/07/21 07:21 Dose: Not Given Documented by: Losartan Potassium (Losartan Potassium 25 Mg Tablet) 25 mg PO DAILY [facility]; Protocol Last Admin: 06/06/21 09:57 Dose: 25 mg Documented by: Melatonin (Melatonin 3 Mg Tablet) 6 mg PO BEDTIME PRN PRN Reason: Insomnia Morphine Sulfate (Morphine Sulfate 4 Mg/Ml Cartridge) 4 mg IVPUSH Q2H PRN; Protocol PRN Reason: Pain, Severe (Pain Scale 7-10) Last Admin: 06/07/21 11:40 Dose: 4 mg Documented by: Multivitamins/Vitamin C (Multivitamin Tablet) 1 tab PO DAILY [facility] Last Admin: 06/06/21 09:58 Dose: 1 tab Documented by: Oxycodone HCl (Oxycodone Hcl Immed Release 5 Mg Tablet) 5 mg PO Q4H PRN PRN Reason: Pain, Moderate (Pain Scale 4-6 Last Admin: 06/06/21 20:57 Dose: 5 mg Documented by: Pharmacy Consult (Consult Rx Perform Med Rec) 1 each MISCELLANE ONCE PRN PRN Reason: Consult order Pharmacy Consult (Consult Rx Vancomycin Dosing) 1 each MISCELLANE DAILY PRN PRN Reason: Consult order Senna (Sennosides 8.6 Mg Tablet) 17.2 mg PO BEDTIME PRN PRN Reason: Constipation Sevelamer Carbonate (Sevelamer Carbonate Tablet 800 Mg Tablet) 800 mg PO TIDWM [facility] Last Admin: 06/07/21 09:44 Dose: 800 mg Documented by: Sodium Chloride (0.9 % Sodium Chloride Flush 3 Ml Syringe) 3 ml IVFLUSH QSHIFT [facility] Last Admin: 06/07/21 07:21 Dose: 3 ml Documented by: Ursodiol (Ursodiol 300 Mg Capsule) 300 mg PO BID [facility] Last Admin: 06/06/21 21:09 Dose: 300 mg Documented by: <LUIS MANUEL Kovacs - Last Filed: 06/07/21 12:06> Time Spent With Patient Time: Total time spent is greater than 50% in coordination of care (as docume nted) at patient's floor/unit and/or counseling patient: <LUIS MANUEL Kovacs - Last Filed: 06/07/21 12:06> Progress Note: Quality Stroke Does the patient have a stroke diagnosis?: No <LUIS MANUEL Kovacs - Last Filed: 06/07/21 12:06> Procedures Date of Service Date of Service: 06/07/21 <LUIS MANUEL Kovacs - Last Filed: 06/07/21 12:06>
--- NOTE | 2021-06-07 12:16 | PM.PNNEP ---
Subjective Subjective Date of Service: 06/07/21 Principal diagnosis: preop cardiovascular exam, CABG hx Interval history: Seen on HD this AM. All recent data reviewed. D/W HD RN Physical Exam Vital Signs: Vital Signs: Last Vital Signs Temp 97.8 F 06/07/21 07:09 Pulse 58 06/07/21 07:09 Resp 17 06/07/21 07:09 BP 155/86 H 06/07/21 07:09 Pulse Ox 98 06/07/21 07:09 BMI result Body Mass Index 27.0 Const: General: no acute distress Orientation/consciousness: patient oriented x3 HEENT: Head: Yes normocephalic Mouth: Normal oral and palatal mucosa present Eyes: EOM: EOMs intact bilaterally Neck: Neck: Yes supple Resp: Auscultation: diminished lung sounds Cardio: Rate: regular rate GI: Palpation (GI): Soft to palpation Neuro: General: patient oriented x3 and moves all extremities Objective Data Labs CBC & Chem 7: 06/02/21 06:19 06/05/21 17:46 Labs: Laboratory Results - last 24 hr 06/06/21 06/06/21 06/07/21 15:09 19:23 07:08 POC Glucose 140 H 184 H 58 L* 06/07/21 07:48 POC Glucose 152 H Microbiology Microbiology Results: Microbiology 06/01/21 18:24 Blood - Venous Blood Culture - Final No growth after 5 days. 06/01/21 18:24 Blood - Venous Blood Culture - Final No growth after 5 days. 06/01/21 18:24 Foot Left Gram Stain - Final 06/01/21 18:24 Foot Left Routine Culture - Final Procedures Date of Service Date of Service: 06/07/21 Assessment & Plan Assessment and plan (1) End-stage renal disease on hemodialysis: Status: Acute Assessment and Plan: Mr. Jean-Pierre Calderón is a 75-year-old gentleman with past medical history of HTN, HLD, DM2, Diabetic foot infections, CAD s/p CABG, ESRD HD MWF, Nephrogenic anemia and secondary hyperparathyroidism who presented to hospital with concerns of diabetic foot infection. 1. Diabetic left foot? nonhealing ulcer with gangrene/ cellulitis dorsum of foot 2. ESRD 3. Nephrogenic Anemia - Ferritin 791, Hgb 9-10, Tsat 18% 4. Secondary Hyperparathyroidism - PTH 218, Phos 6-7, Ca 8.1 5. Hypertension Plan: - HD per MWF schedule - Seen on HD this AM - protect AVF; Renal Diet - Vanco post HD - Calcitriol 0.5mcg MWF - EPO 20,000u weekly. - sevelamer 800mg TID - For BKA tomorrow - Shall increase losartan to 50 mg daily Time Spent With Patient Time: Total time spent is greater than 50% in coordination of care (as documented) at patient's floor/unit and/or counseling patient: Progress Note: Quality Stroke Does the patient have a stroke diagnosis?: No
[2021-06-07 14:07] LABS: Glucose, Whole Blood 107 mg/dL (60-115)
[2021-06-07] MEDS: amLODIPine Besylate 2.5 MG TABLET PO (14:33)
[2021-06-07] MEDS: Bumetanide 1 MG TABLET PO (14:34)
[2021-06-07] MEDS: Aspirin Enteric Coated 81 MG TABLET.DR PO (14:34)
[2021-06-07] MEDS: Losartan Potassium 25 MG TABLET PO (14:38)
[2021-06-07 15:34] VITALS: BP 161/68; PULSE 69; RESP 18; TEMP 36.6; O2SAT 97
--- NOTE | 2021-06-07 16:09 | HO.PM.IMPN ---
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 awake alert,in no acute distress. HEENT? anicteric sclerae Neck no JVD. CVS? regular rate rhythm, Respiratory lungs clear to auscultation, no respiratory distress, no wheeze, no rhonchi. Gastrointestinal abdomen soft, nontender, bowel sounds audible Extremities? left foot gangrene lateral margin of small toe extended towards dorsum of foot, significant dusky discoloration dorsum of foot extended towards lower leg, open wound lateral margin base of small toe with foul odor edema improved. no change in foot examination in last 24 hours. Neuro nonfocal, decreased position sense Skin no rash Objective Data Active Medications Acetaminophen (Acetaminophen 325 Mg Tablet) 650 mg PO Q6H PRN PRN Reason: Pain, Mild (Pain Scale 1-3) Last Admin: 06/03/21 21:44 Dose: 650 mg Documented by: WILL Amlodipine Besylate (Amlodipine Besylate 2.5 Mg Tablet) 2.5 mg PO DAILY [facility]; Protocol Last Admin: 06/07/21 14:33 Dose: 2.5 mg Documented by: MALIK Amlodipine Besylate (Amlodipine Besylate 5 Mg Tablet) 5 mg PO BEDTIME [facility]; Protocol Last Admin: 06/06/21 20:57 Dose: 5 mg Documented by: CY Aspirin (Aspirin Enteric Coated 81 Mg Tablet.) 81 mg PO DAILY [facility] Last Admin: 06/07/21 14:34 Dose: 81 mg Documented by: MALIK Atorvastatin Calcium (Atorvastatin Calcium 40 Mg Tablet) 40 mg PO BEDTIME [facility] Last Admin: 06/06/21 20:57 Dose: 40 mg Documented by: CY Bumetanide (Bumetanide 1 Mg Tablet) 1 mg PO DAILY [facility]; Protocol Last Admin: 06/07/21 14:34 Dose: 1 mg Documented by: MALIK Calcitriol (Calcitriol 0.25 Mcg Capsule) 0.5 mcg PO MoWeFr [facility] Last Admin: 06/05/21 14:17 Dose: Not Given Documented by: MALIK Non-Admin Reason: Off Unit: Surgery Carvedilol (Carvedilol 25 Mg Tablet) 25 mg PO BID [facility]; Protocol Last Admin: 06/07/21 14:35 Dose: Not Given Documented by: MALIK Non-Admin Reason: dialysis Dextrose (Dextrose 50 % 25 Gm/50 Ml Vial) 25 gm IVPUSH Q15M PRN; Protocol PRN Reason: per Hypoglycemia Standing Ord. Last Admin: 06/07/21 07:15 Dose: 25 gm Documented by: CY Glucose (Glucose Gel 15 Gm Gel..Gram.) 15 gm PO Q15M PRN; Protocol PRN Reason: per Hypoglycemia Standing Ord. Heparin Sodium (Porcine) (Heparin Sodium,Porcine 5,000 Unit/Ml Vial) 5,000 unit SUBCUT Q8H [facility] Last Admin: 06/07/21 14:41 Dose: 5,000 unit Documented by: MALIK Vancomycin HCl 500 mg/ Sodium (Chloride) 110 mls @ 110 mls/hr IV MoWeFr@2000 [facility] Last Infusion: 06/05/21 22:28 Dose: 0 mls/hr Documented by: DAREK Piperacillin Sod/Tazobactam (Sod 2.25 gm/ Sodium Chloride) 50 mls @ 100 mls/hr IV Q8H [facility] Last Admin: 06/07/21 14:42 Dose: Not Given Documented by: MALIK Non-Admin Reason: off unit Insulin Human Lispro (Insulin Lispro 100 Unit/Ml 3 Ml Vial) 0 unit SUBCUT QIDACHS [facility]; Protocol Last Admin: 06/07/21 14:35 Dose: Not Given Documented by: MALIK Non-Admin Reason: No Insulin Coverage Losartan Potassium (Losartan Potassium 25 Mg Tablet) 25 mg PO DAILY [facility]; Protocol Last Admin: 06/07/21 14:38 Dose: 25 mg Documented by: MALIK Melatonin (Melatonin 3 Mg Tablet) 6 mg PO BEDTIME PRN PRN Reason: Insomnia Morphine Sulfate (Morphine Sulfate 4 Mg/Ml Cartridge) 4 mg IVPUSH Q2H PRN; Protocol PRN Reason: Pain, Severe (Pain Scale 7-10) Last Admin: 06/07/21 11:40 Dose: 4 mg Documented by: MALIK Multivitamins/Vitamin C (Multivitamin Tablet) 1 tab PO DAILY [facility] Last Admin: 06/07/21 14:37 Dose: Not Given Documented by: MALIK Non-Admin Reason: off unit Oxycodone HCl (Oxycodone Hcl Immed Release 5 Mg Tablet) 5 mg PO Q4H PRN PRN Reason: Pain, Moderate (Pain Scale 4-6 Last Admin: 06/06/21 20:57 Dose: 5 mg Documented by: CY Pharmacy Consult (Consult Rx Perform Med Rec) 1 each MISCELLANE ONCE PRN PRN Reason: Consult order Pharmacy Consult (Consult Rx Vancomycin Dosing) 1 each MISCELLANE DAILY PRN PRN Reason: Consult order Senna (Sennosides 8.6 Mg Tablet) 17.2 mg PO BEDTIME PRN PRN Reason: Constipation Sevelamer Carbonate (Sevelamer Carbonate Tablet 800 Mg Tablet) 800 mg PO TIDWM [facility] Last Admin: 06/07/21 14:34 Dose: 800 mg Documented by: MALIK Sodium Chloride (0.9 % Sodium Chloride Flush 3 Ml Syringe) 3 ml IVFLUSH QSHIFT [facility] Last Admin: 06/07/21 07:21 Dose: 3 ml Documented by: CY Ursodiol (Ursodiol 300 Mg Capsule) 300 mg PO BID [facility] Last Admin: 06/07/21 14:36 Dose: Not Given Documented by: MALIK Non-Admin Reason: n/a Labs CBC & Chem 7: 06/02/21 06:19 06/05/21 17:46 Labs: Laboratory Results - last 24 hr 06/06/21 06/07/21 06/07/21 19:23 07:08 07:48 POC Glucose 184 H 58 L* 152 H 06/07/21 14:03 POC Glucose 107 Microbiology Microbiology Results: Microbiology 06/01/21 18:24 Blood Culture - Final Blood - Venous No growth after 5 days. 06/01/21 18:24 Blood Culture - Final Blood - Venous No growth after 5 days. Assessment and Plan (1) PAD (peripheral artery disease): Status: Acute (2) Diabetic foot infection: Status: Acute (3) Wound of left foot: Status: Acute (4) End-stage renal disease on hemodialysis: Status: Acute (5) High cholesterol: Status: Acute (6) Hypertension: Status: Acute (7) Diabetes: Status: Acute Plan 75-year-old old male with a past medical history of hypertension, hyperlipidemia, diabetes, diabetic foot infection, CAD status post CABG, ESRD on hemodialysis; anemia of chronic disease, presented to the hospital with chief complaint of non healing diabetic foot infection.? Diabetic left foot nonhealing ulcer with gangrene/ cellulitis dorsum of foot gradually progressing left foot ulcer, not improved with wound care on IV vancomycin and Zosyn day 6 renally dose WBC normalized, blood cultures x2 neg, patient afebrile CT foot showed no radiographic evidence of osteomyelitis, no bone destruction or fluid collection patient underwent diagnostic angiogram, found to have Total occlusion of the below-knee vessels, Dr. Swan recommend a below-knee amputation, scheduled for 06/08/2021 nuclear stress test showed basal septum with ischemia/ infarction pattern otherwise normal perfusion EF 55% during stress and rest, Cardio recommend aggressive medical therapy postoperatively including anti-platelet did therapy, blood pressure and diabetic therapy. History of diabetes: blood sugars low this morning eating well, Not on Lantus, will decrease insulin sliding scale, continue diabetic diet will add bedtime snack History of ESRD: continue hemodialysis, continue home medication sevelamer, and Bumex, being followed by Nephrology. History of hypertension on multiple antihypertensive, Coreg, Cozaar, Bumex and Norvasc, blood pressure better controlled today, but had elevated blood pressures in last several days case discussed with Nephrology they recommend to increase dose of losartan to 50 mg Hyperlipidemia: Continue Lipitor anemia of chronic disease stable hematocrit follow CBC coronary artery disease no chest pain continue aspirin, Lipitor and Coreg DVT prophylaxis:? Subcu heparin Code status: Full code Need for inaptient: found to have total occlusion of below-knee vessel will need below-knee amputation scheduled for 06/08. Quality Stroke Does the patient have a stroke diagnosis?: No VTE Prior VTE?: No VTE Risk Level:: Medical - moderate - high VTE Device Contraindication: Treatment Not Indicated VTE Drug Contraindication: N/A - Med Ordered
[2021-06-07 16:21] LABS: Glucose, Whole Blood 113 mg/dL (60-115)
[2021-06-07] MEDS: oxyCODONE HCl Immed Release 5 MG TABLET PO (16:25)
[2021-06-07] MEDS: Piperacillin Sodium/Tazobactam 2.25 GM in 0.9 % Sodium Chloride 50 ML IV (16:26)
[2021-06-07] MEDS: calcitrioL 0.25 MCG CAPSULE 0.5 MCG PO (17:17)
[2021-06-07 18:27] LABS: Creatinine Clr Calc Pharmacy 13.7; Estimated Glomerular Filt Rate 14
[2021-06-07 18:31] LABS: Vancomycin Random 13.2 mcg/mL (15-20)
[2021-06-07 19:24] VITALS: BP 150/63; PULSE 68; RESP 18; TEMP 36.9; O2SAT 98
[2021-06-07 19:48] LABS: Glucose, Whole Blood 191 mg/dL (60-115)
--- NOTE | 2021-06-07 21:07 | PC.NURSE ---
P Marta random 13.[address] Packer notified
[2021-06-07] MEDS: vancomycin HCL 500 MG in 0.9 % Sodium Chloride 100 ML 110 MG IV (21:48)
[2021-06-07] MEDS: Insulin Lispro 100 UNIT/ML 3 ML VIAL SUBCUT (21:48)
[2021-06-07] MEDS: amLODIPine Besylate 5 MG TABLET PO (21:49)
[2021-06-07] MEDS: UrsodioL 300 MG CAPSULE PO (21:49)
[2021-06-07] MEDS: carvediloL 25 MG TABLET PO (21:49)
[2021-06-07] MEDS: Atorvastatin Calcium 40 MG TABLET PO (21:49)
[2021-06-07 23:36] VITALS: BP 155/67; PULSE 60; RESP 18; TEMP 36.8; O2SAT 98
[2021-06-08] VITALS (11 sets, daily range): BP systolic 107–171; BP diastolic 38–81; PULSE 49–63; RESP 15–18; TEMP 36.3–37.1; O2SAT 93–99
[2021-06-08] MEDS: Piperacillin Sodium/Tazobactam 2.25 GM in 0.9 % Sodium Chloride 50 ML IV ×3 (00:48→23:24)
[2021-06-08] MEDS: 0.9 % Sodium Chloride Flush 3 ML SYRINGE IVFLUSH ×3 (00:48→23:24)
[2021-06-08 07:11] LABS: Glucose, Whole Blood 188 mg/dL (60-115)
--- NOTE | 2021-06-08 08:17 | HE.PHANOTE ---
Vancomycin Dosing Addendum Dialysis patient. Next random 06/09/21 post dialysis.
[2021-06-08] MEDS: UrsodioL 300 MG CAPSULE PO ×2 (08:38→20:37)
[2021-06-08] MEDS: Multivitamin TABLET 1 TAB PO (08:38)
[2021-06-08] MEDS: amLODIPine Besylate 2.5 MG TABLET PO (08:38)
[2021-06-08] MEDS: Sevelamer Carbonate Tablet 800 MG TABLET PO (08:38)
[2021-06-08] MEDS: Bumetanide 1 MG TABLET PO (08:38)
[2021-06-08] MEDS: Losartan Potassium 50 MG TABLET PO (08:39)
[2021-06-08 09:16] LABS: Anion Gap 16 (12-20); Blood Urea Nitrogen 34 mg/dL (9-16); Calcium 8.7 mg/dL (8.4-10.2); Carbon Dioxide 22 mmol/L (22-29); Chloride 101 mmol/L (96-108); Creatinine Clr Calc Pharmacy 10.2; Estimated Glomerular Filt Rate 10; Glucose Random 161 mg/dL (60-115); Potassium 5.1 mmol/L (3.3-5.1); Sodium 134 mmol/L (135-145)
[2021-06-08 11:18] LABS: Glucose, Whole Blood 139 mg/dL (60-115)
--- NOTE | 2021-06-08 11:26 | P.PNIM_ITS ---
Subjective Subjective Date of Service: 06/08/21 Interval History: offers no acute complaints, slept well blood sugar in 180s this morning, since Lantus was held due to low blood sugars in last few days, complaining of persistent pain left foot, no fevers, no chills. Review of Systems [employer] no headache, no dizziness CVS no chest pain, no palpitation GI no nausea, no vomiting Review of Systems: Yes all other systems are reviewed and are negative Physical Exam 2 Vital Signs: Vital Signs: Last Vital Signs Temp 98.8 F 06/08/21 11:10 Pulse 60 06/08/21 11:10 Resp 18 06/08/21 11:10 BP 180/77 H 06/08/21 11:10 Pulse Ox 98 06/08/21 11:10 BMI result Body Mass Index 27.0 Const: Other: General? awake alert,in no acute distress. HEENT? anicteric sclerae Neck no JVD. CVS? regular rate rhythm, Respiratory lungs clear to auscultation, no respiratory distress, no wheeze, no rhonchi. Gastrointestinal abdomen soft, nontender, bowel sounds audible Extremities? left foot gangrene lateral margin of small toe extended towards dorsum of foot, significant dusky discoloration dorsum of foot extended towards lower leg, open wound lateral margin base of small toe with foul odor edema improved. Neuro nonfocal, decreased position sense Skin no rash Objective Data Active Medications Acetaminophen (Acetaminophen 325 Mg Tablet) 650 mg PO Q6H PRN PRN Reason: Pain, Mild (Pain Scale 1-3) Last Admin: 06/03/21 21:44 Dose: 650 mg Documented by: WILL Amlodipine Besylate (Amlodipine Besylate 2.5 Mg Tablet) 2.5 mg PO DAILY [facility]; Protocol Last Admin: 06/08/21 08:38 Dose: 2.5 mg Documented by: RUSTY Amlodipine Besylate (Amlodipine Besylate 5 Mg Tablet) 5 mg PO BEDTIME [facility]; Protocol Last Admin: 06/07/21 21:49 Dose: 5 mg Documented by: DAREK Aspirin (Aspirin Enteric Coated 81 Mg Tablet.) 81 mg PO DAILY [facility] Last Admin: 06/08/21 08:39 Dose: Not Given Documented by: RUSTY Non-Admin Reason: surgery Atorvastatin Calcium (Atorvastatin Calcium 40 Mg Tablet) 40 mg PO BEDTIME [facility] Last Admin: 06/07/21 21:49 Dose: 40 mg Documented by: DAREK Bumetanide (Bumetanide 1 Mg Tablet) 1 mg PO DAILY [facility]; Protocol Last Admin: 06/08/21 08:38 Dose: 1 mg Documented by: RUSTY Calcitriol (Calcitriol 0.25 Mcg Capsule) 0.5 mcg PO MoWeFr [facility] Last Admin: 06/07/21 17:17 Dose: 0.5 mcg Documented by: DAREK Carvedilol (Carvedilol 25 Mg Tablet) 25 mg PO BID [facility]; Protocol Last Admin: 06/08/21 08:39 Dose: Not Given Documented by: RUSTY Non-Admin Reason: Decreased Heart Rate Dextrose (Dextrose 50 % 25 Gm/50 Ml Vial) 25 gm IVPUSH Q15M PRN; Protocol PRN Reason: per Hypoglycemia Standing Ord. Last Admin: 06/07/21 07:15 Dose: 25 gm Documented by: CY Glucose (Glucose Gel 15 Gm Gel..Gram.) 15 gm PO Q15M PRN; Protocol PRN Reason: per Hypoglycemia Standing Ord. Heparin Sodium (Porcine) (Heparin Sodium,Porcine 5,000 Unit/Ml Vial) 5,000 unit SUBCUT Q8H [facility] Last Admin: 06/08/21 08:26 Dose: Not Given Documented by: RUSTY Non-Admin Reason: procedure Vancomycin HCl 500 mg/ Sodium (Chloride) 110 mls @ 110 mls/hr IV MoWeFr@2000 [facility] Last Infusion: 06/07/21 22:50 Dose: 0 mls/hr Documented by: DAREK Piperacillin Sod/Tazobactam (Sod 2.25 gm/ Sodium Chloride) 50 mls @ 100 mls/hr IV Q8H [facility] Last Infusion: 06/08/21 09:20 Dose: 0 mls/hr Documented by: RUSTY Insulin Human Lispro (Insulin Lispro 100 Unit/Ml 3 Ml Vial) 0 unit SUBCUT QIDACHS [facility]; Protocol Last Admin: 06/08/21 11:23 Dose: Not Given Documented by: RUSTY Non-Admin Reason: No Insulin Coverage Losartan Potassium (Losartan Potassium 50 Mg Tablet) 50 mg PO DAILY [facility]; Stephanie col Last Admin: 06/08/21 08:39 Dose: 50 mg Documented by: RUSTY Melatonin (Melatonin 3 Mg Tablet) 6 mg PO BEDTIME PRN PRN Reason: Insomnia Morphine Sulfate (Morphine Sulfate 4 Mg/Ml Cartridge) 4 mg IVPUSH Q2H PRN; Protocol PRN Reason: Pain, Severe (Pain Scale 7-10) Last Admin: 06/07/21 11:40 Dose: 4 mg Documented by: MALIK Multivitamins/Vitamin C (Multivitamin Tablet) 1 tab PO DAILY [facility] Last Admin: 06/08/21 08:38 Dose: 1 tab Documented by: RUSTY Oxycodone HCl (Oxycodone Hcl Immed Release 5 Mg Tablet) 5 mg PO Q4H PRN PRN Reason: Pain, Moderate (Pain Scale 4-6 Last Admin: 06/07/21 16:25 Dose: 5 mg Documented by: DAREK Pharmacy Consult (Consult Rx Perform Med Rec) 1 each MISCELLANE ONCE PRN PRN Reason: Consult order Pharmacy Consult (Consult Rx Vancomycin Dosing) 1 each MISCELLANE DAILY PRN PRN Reason: Consult order Senna (Sennosides 8.6 Mg Tablet) 17.2 mg PO BEDTIME PRN PRN Reason: Constipation Sevelamer Carbonate (Sevelamer Carbonate Tablet 800 Mg Tablet) 800 mg PO TIDWM [facility] Last Admin: 06/08/21 08:38 Dose: 800 mg Documented by: RUSTY Sodium Chloride (0.9 % Sodium Chloride Flush 3 Ml Syringe) 3 ml IVFLUSH QSHIFT [facility] Last Admin: 06/08/21 08:38 Dose: 3 ml Documented by: RUSTY Ursodiol (Ursodiol 300 Mg Capsule) 300 mg PO BID [facility] Last Admin: 06/08/21 08:38 Dose: 300 mg Documented by: RUSTY Labs CBC & Chem 7: 06/02/21 06:19 06/08/21 08:47 Labs: Laboratory Results - last 24 hr 06/07/21 06/07/21 06/07/21 14:03 16:17 17:56 Anion Gap Estim Creat Clear Calc 13.7 Estimated GFR 14 POC Glucose 107 113 Random Glucose Calcium Random Vancomycin Blood Type Antibody Screen 06/07/21 06/07/21 06/07/21 17:56 19:44 21:36 Anion Gap Estim Creat Clear Calc Estimated GFR POC Glucose 191 H Random Glucose Calcium Random Vancomycin 13.2 L Blood Type A Positive Antibody Screen NEGATIVE 06/08/21 06/08/21 06/08/21 07:05 08:47 11:14 Anion Gap 16 Estim Creat Clear Calc 10.2 Estimated GFR 10 POC Glucose 188 H 139 H Random Glucose 161 H D Calcium 8.7 Random Vancomycin Blood Type Antibody Screen Assessment and Plan (1) PAD (peripheral artery disease): Status: Acute (2) Diabetic foot infection: Status: Acute (3) Wound of left foot: Status: Acute (4) End-stage renal disease on hemodialysis: Status: Acute (5) High cholesterol: Status: Acute (6) Hypertension: Status: Acute (7) Diabetes: Status: Acute Plan 75-year-old old male with a past medical history of hypertension, hyperlipidemia, diabetes, diabetic foot infection, CAD status post CABG, ESRD on hemodialysis; anemia of chronic disease, presented to the hospital with chief complaint of non healing diabetic foot infection.? Diabetic left foot nonhealing ulcer with gangrene/ cellulitis dorsum of foot gradually progressing left foot ulcer, not improved with wound care on IV vancomycin and Zosyn day 7 renally dose, will DC antibiotic postoperatively in next 1-2 days. WBC normalized, blood cultures x2 neg, patient afebrile CT foot showed no radiographic evidence of osteomyelitis, no bone destruction or fluid collection patient underwent diagnostic angiogram, found to have Total occlusion of the below-knee vessels, Dr. Swan recommend a below-knee amputation, scheduled for today nuclear stress test showed basal septum with ischemia/ infarction pattern otherwise normal perfusion EF 55% during stress and rest, Cardio recommend aggressive medical therapy postoperatively including anti-platelet therapy, blood pressure and diabetic therapy. History of diabetes: blood sugars elevated this morning ,since Lantus was discontinued due to low blood sugars in last couple days, continue insulin sliding scale, diabetic diet and monitor blood sugars closely postoperatively. History of ESRD: continue hemodialysis, continue home medication sevelamer, and Bumex, being followed by Nephrology. History of hypertension on multiple antihypertensive, Coreg, Cozaar, Bumex and Norvasc, dose of losartan increased to 50 mg on 06/07 due to elevated blood pressures follow BP Hyperlipidemia: Continue Lipitor anemia of chronic disease stable hematocrit follow CBC coronary artery disease no chest pain, continue aspirin, Lipitor and Coreg. DVT prophylaxis:? Subcu heparin Code status: Full code Need for inaptient: found to have total occlusion of below-knee vessels. undergoing below-knee amputation today. Quality Stroke Does the patient have a stroke diagnosis?: No VTE Prior VTE?: No VTE Risk Level:: Medical - moderate - high VTE Device Contraindication: Treatment Not Indicated VTE Drug Contraindication: N/A - Med Ordered
--- NOTE | 2021-06-08 11:44 | PM.PNNEP ---
Subjective Subjective Date of Service: 06/08/21 Principal diagnosis: preop cardiovascular exam, CABG hx Interval history: Events noted. All recent data reviewed Physical Exam Vital Signs: Vital Signs: Last Vital Signs Temp 98.8 F 06/08/21 11:10 Pulse 60 06/08/21 11:10 Resp 18 06/08/21 11:10 BP 170/72 H 06/08/21 11:10 Pulse Ox 98 06/08/21 11:10 BMI result Body Mass Index 27.0 Const: General: no acute distress Orientation/consciousness: patient oriented x3 HEENT: Head: Yes normocephalic Mouth: moist mucous membranes Eyes: EOM: EOMs intact bilaterally Neck: Neck: Yes supple Resp: Auscultation: diminished lung sounds Cardio: Rate: regular rate GI: Palpation (GI): Soft to palpation Neuro: General: patient oriented x3 Objective Data Labs CBC & Chem 7: 06/02/21 06:19 06/08/21 08:47 Labs: Laboratory Results - last 24 hr 06/07/21 06/07/21 06/07/21 14:03 16:17 17:56 Sodium Potassium Chloride Carbon Dioxide Anion Gap BUN Creatinine 4.09 H* Estim Creat Clear Calc 13.7 Estimated GFR 14 POC Glucose 107 113 Random Glucose Calcium Random Vancomycin Blood Type Antibody Screen 06/07/21 06/07/21 06/07/21 17:56 19:44 21:36 Sodium Potassium Chloride Carbon Dioxide Anion Gap BUN Creatinine Estim Creat Clear Calc Estimated GFR POC Glucose 191 H Random Glucose Calcium Random Vancomycin 13.2 L Blood Type A Positive Antibody Screen NEGATIVE 06/08/21 06/08/21 06/08/21 07:05 08:47 11:14 Sodium 134 L Potassium 5.1 D Chloride 101 Carbon Dioxide 22 Anion Gap 16 BUN 34 H Creatinine 5.48 H* Estim Creat Clear Calc 10.2 Estimated GFR 10 POC Glucose 188 H 139 H Random Glucose 161 H D Calcium 8.7 Random Vancomycin Blood Type Antibody Screen Microbiology Microbiology Results: Microbiology 06/01/21 18:24 Blood - Venous Blood Culture - Final No growth after 5 days. 06/01/21 18:24 Blood - Venous Blood Culture - Final No growth after 5 days. 06/01/21 18:24 Foot Left Gram Stain - Final 06/01/21 18:24 Foot Left Routine Culture - Final Procedures Date of Service Date of Service: 06/08/21 Assessment & Plan Assessment and plan (1) End-stage renal disease on hemodialysis: Status: Acute Assessment and Plan: Mr. Jean-Pierre Calderón is a 75-year-old gentleman with past medical history of HTN, HLD, DM2, Diabetic foot infections, CAD s/p CABG, ESRD HD MWF, Nephrogenic anemia and secondary hyperparathyroidism who presented to hospital with concerns of diabetic foot infection. 1. Diabetic left foot? nonhealing ulcer with gangrene/ cellulitis dorsum of foot- For BKA 2. ESRD 3. Nephrogenic Anemia - Ferritin 791, Hgb 9-10, Tsat 18% 4. Secondary Hyperparathyroidism - PTH 218, Phos 6-7, Ca 8.1 5. Hypertension Plan: - HD per MWF schedule - Next HD tomorrow - protect AVF; Renal Diet - Vanco post HD - Calcitriol 0.5mcg MWF - EPO 20,000u weekly. - sevelamer 800mg TID - For BKA today - Shall increase losartan to 100 mg daily if BP remains high Time Spent With Patient Time: Total time spent is greater than 50% in coordination of care (as documented) at patient's floor/unit and/or counseling patient: Progress Note: Quality Stroke Does the patient have a stroke diagnosis?: No
[2021-06-08 14:40] LABS: Glucose, Whole Blood 110 mg/dL (60-115)
--- NOTE | 2021-06-08 14:59 | HO.ANESPROP2 ---
HPI - Anesthesia Eval Consult details Narrative: 75 years old male for amputation below knee, left. HTN, HLD, DM2, Diabetic foot infections, CAD s/p CABG, ESRD on HD anemia secondary hyperparathyroidism , diabetic foot infection. back pain , radiation to Left LE . Seen by cardiology , moderate risk . [facility] Active Problems Active Problems: All Active Problems (Updated 06/06/21 @ 11:35 by Keith Vicente MD) Preoperative cardiovascular examination (Acute) PAD (peripheral artery disease) (Acute) Diabetic foot infection (Acute) Osteomyelitis (Acute) Wound of left foot (Acute) Diabetes mellitus, with long-term current use of insulin (Acute) Anemia in chronic kidney disease (Acute) Mixed hyperlipidemia (Acute) Diarrhea (Acute) Infected blister of great toe of left foot (Acute) Microalbuminuria (Acute) End-stage renal disease on hemodialysis (Acute) High cholesterol (Acute) Hypertension (Acute) Diabetes (Acute) Past Medical History Medical History Anemia in chronic kidney disease Diabetes Diabetes mellitus, with long-term current use of insulin Diarrhea End-stage renal disease on hemodialysis High cholesterol Hypertension Microalbuminuria Mixed hyperlipidemia Family History Family History Father Myocardial infarction Mother No problems noted. Family history of problems with anesthesia: No Surgical History Surgical History History of eye surgery History of laminectomy History of surgery History of surgery on arm S/P CABG x 4 History of Problems with Anesthesia: No Social History Social History Household Members: Children Housing: House Do you presently have visiting nurse or other home services: Yes (daughter/son bill cutter) Alcohol intake: never Patient Tobacco Use Status: Never used Tobacco e-Cigarette/Vaping Use: Never Used Second Hand Smoke Exposure: No service: No Current occupational status: retired and disabled Meds Allergies Allergy/AdvReac Type Severity Reaction Status Date / Time lisinopril Allergy Intermediate hyperkalemi Verified 06/01/21 13:25 a lidocaine [From LIDOPRIL] Allergy Mild COUGH Verified 06/01/21 13:25 prilocaine [From LIDOPRIL] Allergy Mild COUGH Verified 06/01/21 13:25 canagliflozin [Invokana] AdvReac Mild back pain Verified 06/01/21 13:25 Hydralazine-HCTZ Allergy Unknown Unknown Uncoded 05/02/21 12:09 Active Medications: Current Medications Acetaminophen (Acetaminophen 325 Mg Tablet) 650 mg PO Q6H PRN PRN Reason: Pain, Mild (Pain Scale 1-3) Last Admin: 06/03/21 21:44 Dose: 650 mg Documented by: Amlodipine Besylate (Amlodipine Besylate 2.5 Mg Tablet) 2.5 mg PO DAILY [facility]; Protocol Last Admin: 06/08/21 08:38 Dose: 2.5 mg Documented by: Amlodipine Besylate (Amlodipine Besylate 5 Mg Tablet) 5 mg PO BEDTIME [facility]; Protocol Last Admin: 06/07/21 21:49 Dose: 5 mg Documented by: Aspirin (Aspirin Enteric Coated 81 Mg Tablet.) 81 mg PO DAILY [facility] Last Admin: 06/08/21 08:39 Dose: Not Given Documented by: Atorvastatin Calcium (Atorvastatin Calcium 40 Mg Tablet) 40 mg PO BEDTIME HANH Last Admin: 06/07/21 21:49 Dose: 40 mg Documented by: Bumetanide (Bumetanide 1 Mg Tablet) 1 mg PO DAILY [facility]; Protocol Last Admin: 06/08/21 08:38 Dose: 1 mg Documented by: Calcitriol (Calcitriol 0.25 Mcg Capsule) 0.5 mcg PO MoWeFr [facility] Last Admin: 06/07/21 17:17 Dose: 0.5 mcg Documented by: Carvedilol (Carvedilol 25 Mg Tablet) 25 mg PO BID [facility]; Protocol Last Admin: 06/08/21 08:39 Dose: Not Given Documented by: Dextrose (Dextrose 50 % 25 Gm/50 Ml Vial) 25 gm IVPUSH Q15M PRN; Protocol PRN Reason: per Hypoglycemia Standing Ord. Last Admin: 06/07/21 07:15 Dose: 25 gm Documented by: Glucose (Glucose Gel 15 Gm Gel..Gram.) 15 gm PO Q15M PRN; Protocol PRN Reason: per Hypoglycemia Standing Ord. Heparin Sodium (Porcine) (Heparin Sodium,Porcine 5,000 Unit/Ml Vial) 5,000 unit SUBCUT Q8H [facility] Last Admin: 06/08/21 14:42 Dose: Not Given Documented by: Vancomycin HCl 500 mg/ Sodium (Chloride) 110 mls @ 110 mls/hr IV MoWeFr@2000 [facility] Last Infusion: 06/07/21 22:50 Dose: Infused Documented by: Piperacillin Sod/Tazobactam (Sod 2.25 gm/ Sodium Chloride) 50 mls @ 100 mls/hr IV Q8H [facility] Last Infusion: 06/08/21 09:20 Dose: Infused Documented by: Insulin Human Lispro (Insulin Lispro 100 Unit/Ml 3 Ml Vial) 0 unit SUBCUT QIDACHS [facility]; Protocol Last Admin: 06/08/21 11:23 Dose: Not Given Documented by: Losartan Potassium (Losartan Potassium 50 Mg Tablet) 50 mg PO DAILY [facility]; Protocol Last Admin: 06/08/21 08:39 Dose: 50 mg Documented by: Melatonin (Melatonin 3 Mg Tablet) 6 mg PO BEDTIME PRN PRN Reason: Insomnia Morphine Sulfate (Morphine Sulfate 4 Mg/Ml Cartridge) 4 mg IVPUSH Q2H PRN; Protocol PRN Reason: Pain, Severe (Pain Scale 7-10) Last Admin: 06/07/21 11:40 Dose: 4 mg Documented by: Multivitamins/Vitamin C (Multivitamin Tablet) 1 tab PO DAILY [facility] Last Admin: 06/08/21 08:38 Dose: 1 tab Documented by: Oxycodone HCl (Oxycodone Hcl Immed Release 5 Mg Tablet) 5 mg PO Q4H PRN PRN Reason: Pain, Moderate (Pain Scale 4-6 Last Admin: 06/07/21 16:25 Dose: 5 mg Documented by: Pharmacy Consult (Consult Rx Perform Med Rec) 1 each MISCELLANE ONCE PRN PRN Reason: Consult order Pharmacy Consult (Consult Rx Vancomycin Dosing) 1 each MISCELLANE DAILY PRN PRN Reason: Consult order Senna (Sennosides 8.6 Mg Tablet) 17.2 mg PO BEDTIME PRN PRN Reason: Constipation Sevelamer Carbonate (Sevelamer Carbonate Tablet 800 Mg Tablet) 800 mg PO TIDWM [facility] Last Admin: 06/08/21 12:57 Dose: Not Given Documented by: Sodium Chloride (0.9 % Sodium Chloride Flush 3 Ml Syringe) 3 ml IVFLUSH QSHIFT [facility] Last Admin: 06/08/21 08:38 Dose: 3 ml Documented by: Ursodiol (Ursodiol 300 Mg Capsule) 300 mg PO BID [facility] Last Admin: 06/08/21 08:38 Dose: 300 mg Documented by: Home Medications Medication Instructions Recorded Confirmed Last Taken Type sevelamer carbonate 800 mg tablet 800 mg PO TID 01/22/20 06/01/21 06/01/21 History amlodipine 5 mg tablet 2.5 mg PO DAILY 06/01/21 06/01/21 06/01/21 History amlodipine 5 mg tablet 5 mg PO BEDTIME 06/01/21 06/01/21 05/31/21 History aspirin 81 mg tablet,delayed 1 tab PO DAILY 06/01/21 06/01/21 06/01/21 History release atorvastatin 40 mg tablet 40 mg PO BEDTIME 06/01/21 06/01/21 05/31/21 History carvedilol 25 mg tablet 1 tab PO BID 06/01/21 06/01/21 06/01/21 History ergocalciferol (vitamin D2) 1,250 1 cap PO FR 06/01/21 06/01/21 06/01/21 History mcg (50,000 unit) capsule (Vitamin D2) tramadol 50 mg tablet 50 mg PO BID-TID PRN 06/01/21 06/01/21 06/01/21 History ursodiol 300 mg capsule 1 cap PO BID 06/01/21 06/01/21 06/01/21 History Exam Exam Date and Time: June 08, 2021 1459 Height,Weight and Vital Signs: Height 5 ft 5 in Weight 73.7 kg Last Vital Signs Temp 98.6 F 06/08/21 14:31 Pulse 62 06/08/21 14:31 Resp 16 06/08/21 14:31 BP 171/62 H 06/08/21 14:31 Pulse Ox 98 06/08/21 14:31 Pertinent Lab Results Pertinent Lab Results: Laboratory Tests 06/01/21 06/01/21 06/01/21 18:24 18:29 18:29 WBC RBC Hgb Hct MCV MCH MCHC RDW Plt Count MPV Immature Gran % (Auto) Neut % (Auto) Lymph % (Auto) [place] % (Auto) Eos % (Auto) Baso % (Auto) Lymph # (Auto) [place] # (Auto) Eos # (Auto) Baso # (Auto) Abs Immat Gran (auto) Absolute Neuts (auto) Absolute Nucleated RBC Nucleated RBC % (auto) Smear Tech's Comments ESR Sodium 134 L Potassium 4.3 Chloride 96 Carbon Dioxide 28 Anion Gap 14 BUN 40 H Creatinine 4.71 H* Estim Creat Clear Calc 11.9 Estimated GFR 12 POC Glucose Random Glucose 251 H D Estimat Average Glucose Hemoglobin A1c % Lactic Acid 1.0 Calcium 8.9 Total Bilirubin 0.6 AST 20 ALT 16 Alkaline Phosphatase 50 Troponin I High Sens C-Reactive Protein 13.38 H Total Protein 6.8 Albumin 3.3 L Random Vancomycin COVID-19 (ZAEN) Negative COVID-19 Clin Com See Note Blood Type Antibody Screen 06/01/21 06/01/21 06/01/21 18:29 18:32 18:32 WBC 13.0 H RBC 3.38 L Hgb 10.2 L Hct 32.4 L MCV 95.9 MCH 30.2 MCHC 31.5 RDW 15.2 Plt Count 208 MPV 12.3 Immature Gran % (Auto) 1.0 H Neut % (Auto) 90.4 H Lymph % (Auto) 3.1 L [place] % (Auto) 5.0 Eos % (Auto) 0.3 Baso % (Auto) 0.2 Lymph # (Auto) 0.4 L [place] # (Auto) 0.7 Eos # (Auto) 0.0 Baso # (Auto) 0.0 Abs Immat Gran (auto) 0.13 H Absolute Neuts (auto) 11.8 H Absolute Nucleated RBC 0.000 Nucleated RBC % (auto) 0.0 Smear Tech's Comments VERIFIED ESR 48 H Sodium Potassium Chloride Carbon Dioxide Anion Gap BUN Creatinine Estim Creat Clear Calc Estimated GFR POC Glucose Random Glucose Estimat Average Glucose Hemoglobin A1c % Lactic Acid Calcium Total Bilirubin AST ALT Alkaline Phosphatase Troponin I High Sens 51.9 H C-Reactive Protein Total Protein Albumin Random Vancomycin COVID-19 (ZANE) COVID-19 Clin Com Blood Type Antibody Screen 06/02/21 06/02/21 06/02/21 06:19 06:19 07:10 WBC 10.2 RBC 3.24 L Hgb 10.1 L Hct 31.1 L MCV 96.0 MCH 31.2 MCHC 32.5 RDW 15.5 Plt Count 152 L D MPV 12.1 Immature Gran % (Auto) 0.6 H Neut % (Auto) 85.2 H Lymph % (Auto) 7.0 L [place] % (Auto) 6.2 Eos % (Auto) 0.6 Baso % (Auto) 0.4 Lymph # (Auto) 0.7 L [place] # (Auto) 0.6 Eos # (Auto) 0.1 Baso # (Auto) 0.0 Abs Immat Gran (auto) 0.06 H Absolute Neuts (auto) 8.7 H Absolute Nucleated RBC 0.000 Nucleated RBC % (auto) 0.0 Smear Tech's Comments ESR Sodium 135 Potassium 4.5 Chloride 99 Carbon Dioxide 23 Anion Gap 18 BUN 46 H Creatinine 5.19 H* Estim Creat Clear Calc 10.8 Estimated GFR 11 POC Glucose 133 H Random Glucose 151 H D Estimat Average Glucose Hemoglobin A1c % Lactic Acid Calcium 8.8 Total Bilirubin AST ALT Alkaline Phosphatase Troponin I High Sens C-Reactive Protein Total Protein Albumin Random Vancomycin COVID-19 (ZANE) COVIDDeed Blood Type Antibody Screen 06/02/21 06/02/21 06/02/21 12:57 17:37 18:20 WBC RBC Hgb Hct MCV MCH MCHC RDW Plt Count MPV Immature Gran % (Auto) Neut % (Auto) Lymph % (Auto) [place] % (Auto) Eos % (Auto) Baso % (Auto) Lymph # (Auto) [place] # (Auto) Eos # (Auto) Baso # (Auto) Abs Immat Gran (auto) Absolute Neuts (auto) Absolute Nucleated RBC Nucleated RBC % (auto) Smear Tech's Comments ESR Sodium Potassium Chloride Carbon Dioxide Anion Gap BUN Creatinine Estim Creat Clear Calc Estimated GFR POC Glucose 174 H 103 Random Glucose Estimat Average Glucose Hemoglobin A1c % Lactic Acid Calcium Total Bilirubin AST ALT Alkaline Phosphatase Troponin I High Sens C-Reactive Protein Total Protein Albumin Random Vancomycin 10.4 L COVID-19 (ZANE) COVIDDeed Blood Type Antibody Screen 06/02/21 06/03/21 06/03/21 20:48 05:31 05:31 WBC RBC Hgb Hct MCV MCH MCHC RDW Plt Count MPV Immature Gran % (Auto) Neut % (Auto) Lymph % (Auto) [place] % (Auto) Eos % (Auto) Baso % (Auto) Lymph # (Auto) [place] # (Auto) Eos # (Auto) Baso # (Auto) Abs Immat Gran (auto) Absolute Neuts (auto) Absolute Nucleated RBC Nucleated RBC % (auto) Smear Tech's Comments ESR Sodium 137 Potassium 3.9 Chloride 102 Carbon Dioxide 24 Anion Gap 15 BUN 36 H Creatinine 4.05 H* Estim Creat Clear Calc 13.9 Estimated GFR 15 POC Glucose 168 H Random Glucose 68 D Estimat Average Glucose 114 Hemoglobin A1c % 5.6 Lactic Acid Calcium 8.8 Total Bilirubin AST ALT Alkaline Phosphatase Troponin I High Sens C-Reactive Protein Total Protein Albumin Random Vancomycin COVID-19 (ZANE) COVID-19 [employer] [employer] Blood Type Antibody Screen 06/03/21 06/03/21 06/03/21 07:20 11:13 16:18 WBC RBC Hgb Hct MCV MCH MCHC RDW Plt Count MPV Immature Gran % (Auto) Neut % (Auto) Lymph % (Auto) [place] % (Auto) Eos % (Auto) Baso % (Auto) Lymph # (Auto) [place] # (Auto) Eos # (Auto) Baso # (Auto) Abs Immat Gran (auto) Absolute Neuts (auto) Absolute Nucleated RBC Nucleated RBC % (auto) Smear Tech's Comments ESR Sodium Potassium Chloride Carbon Dioxide Anion Gap BUN Creatinine Estim Creat Clear Calc Estimated GFR POC Glucose 65 108 156 H Random Glucose Estimat Average Glucose Hemoglobin A1c % Lactic Acid Calcium Total Bilirubin AST ALT Alkaline Phosphatase Troponin I High Sens C-Reactive Protein Total Protein Albumin Random Vancomycin COVID-19 (ZANE) COVIDJackpocket19 [employer] Blood Type Antibody Screen 06/03/21 06/04/21 06/04/21 20:25 07:34 08:01 WBC RBC Hgb Hct MCV MCH MCHC RDW Plt Count MPV Immature Gran % (Auto) Neut % (Auto) Lymph % (Auto) [place] % (Auto) Eos % (Auto) Baso % (Auto) Lymph # (Auto) [place] # (Auto) Eos # (Auto) Baso # (Auto) Abs Immat Gran (auto) Absolute Neuts (auto) Absolute Nucleated RBC Nucleated RBC % (auto) Smear Tech's Comments ESR Sodium Potassium Chloride Carbon Dioxide Anion Gap BUN Creatinine 5.61 H* Estim Creat Clear Calc 10.0 Estimated GFR 10 POC Glucose 154 H 70 Random Glucose Estimat Average Glucose Hemoglobin A1c % Lactic Acid Calcium Total Bilirubin AST ALT Alkaline Phosphatase Troponin I High Sens C-Reactive Protein Total Protein Albumin Random Vancomycin COVID-19 (ZANE) COVIDDeed Blood Type Antibody Screen 06/04/21 06/04/21 06/04/21 11:04 16:21 21:15 WBC RBC Hgb Hct MCV MCH MCHC RDW Plt Count MPV Immature Gran % (Auto) Neut % (Auto) Lymph % (Auto) [place] % (Auto) Eos % (Auto) Baso % (Auto) Lymph # (Auto) [place] # (Auto) Eos # (Auto) Baso # (Auto) Abs Immat Gran (auto) Absolute Neuts (auto) Absolute Nucleated RBC Nucleated RBC % (auto) Smear Tech's Comments ESR Sodium Potassium Chloride Carbon Dioxide Anion Gap BUN Creatinine Estim Creat Clear Calc Estimated GFR POC Glucose 170 H 105 195 H Random Glucose Estimat Average Glucose Hemoglobin A1c % Lactic Acid Calcium Total Bilirubin AST ALT Alkaline Phosphatase Troponin I High Sens C-Reactive Protein Total Protein Albumin Random Vancomycin COVID-19 (ZANE) COVIDDeed Blood Type Antibody Screen 06/05/21 06/05/21 06/05/21 07:12 08:06 12:49 WBC RBC Hgb Hct MCV MCH MCHC RDW Plt Count MPV Immature Gran % (Auto) Neut % (Auto) Lymph % (Auto) [place] % (Auto) Eos % (Auto) Baso % (Auto) Lymph # (Auto) [place] # (Auto) Eos # (Auto) Baso # (Auto) Abs Immat Gran (auto) Absolute Neuts (auto) Absolute Nucleated RBC Nucleated RBC % (auto) Smear Tech's Comments ESR Sodium Potassium Chloride Carbon Dioxide Anion Gap BUN Creatinine Estim Creat Clear Calc Estimated GFR POC Glucose 59 L* 137 H 85 Random Glucose Estimat Average Glucose Hemoglobin A1c % Lactic Acid Calcium Total Bilirubin AST ALT Alkaline Phosphatase Troponin I High Sens C-Reactive Protein Total Protein Albumin Random Vancomycin COVID-19 (ZANE) COVIDDeed Blood Type Antibody Screen 06/05/21 06/05/21 06/05/21 15:02 15:38 17:06 WBC RBC Hgb Hct MCV MCH MCHC RDW Plt Count MPV Immature Gran % (Auto) Neut % (Auto) Lymph % (Auto) [place] % (Auto) Eos % (Auto) Baso % (Auto) Lymph # (Auto) [place] # (Auto) Eos # (Auto) Baso # (Auto) Abs Immat Gran (auto) Absolute Neuts (auto) Absolute Nucleated RBC Nucleated RBC % (auto) Smear Tech's Comments ESR Sodium Potassium Chloride Carbon Dioxide Anion Gap BUN Creatinine Estim Creat Clear Calc Estimated GFR POC Glucose 55 L* 86 193 H Random Glucose Estimat Average Glucose Hemoglobin A1c % Lactic Acid Calcium Total Bilirubin AST ALT Alkaline Phosphatase Troponin I High Sens C-Reactive Protein Total Protein Albumin Random Vancomycin COVID-19 (ZANE) COVID-19 [facility] Blood Type Antibody Screen 06/05/21 06/05/21 06/05/21 17:46 17:46 21:09 WBC RBC Hgb Hct MCV MCH MCHC RDW Plt Count MPV Immature Gran % (Auto) Neut % (Auto) Lymph % (Auto) [place] % (Auto) Eos % (Auto) Baso % (Auto) Lymph # (Auto) [place] # (Auto) Eos # (Auto) Baso # (Auto) Abs Immat Gran (auto) Absolute Neuts (auto) Absolute Nucleated RBC Nucleated RBC % (auto) Smear Tech's Comments ESR Sodium Potassium Chloride Carbon Dioxide Anion Gap BUN Creatinine 4.53 H* Estim Creat Clear Calc 12.4 Estimated GFR 13 POC Glucose 209 H Random Glucose Estimat Average Glucose Hemoglobin A1c % Lactic Acid Calcium Total Bilirubin AST ALT Alkaline Phosphatase Troponin I High Sens C-Reactive Protein Total Protein Albumin Random Vancomycin 10.2 L COVID-19 (ZANE) COVIDniiu [facility] Blood Type Antibody Screen 06/06/21 06/06/21 06/06/21 07:29 08:11 11:40 WBC RBC Hgb Hct MCV MCH MCHC RDW Plt Count MPV Immature Gran % (Auto) Neut % (Auto) Lymph % (Auto) [place] % (Auto) Eos % (Auto) Baso % (Auto) Lymph # (Auto) [place] # (Auto) Eos # (Auto) Baso # (Auto) Abs Immat Gran (auto) Absolute Neuts (auto) Absolute Nucleated RBC Nucleated RBC % (auto) Smear Tech's Comments ESR Sodium Potassium Chloride Carbon Dioxide Anion Gap BUN Creatinine Estim Creat Clear Calc Estimated GFR POC Glucose 57 L* 88 140 H Random Glucose Estimat Average Glucose Hemoglobin A1c % Lactic Acid Calcium Total Bilirubin AST ALT Alkaline Phosphatase Troponin I High Sens C-Reactive Protein Total Protein Albumin Random Vancomycin COVID-19 (ZANE) COVIDe(ye)BRAIN [facility] Blood Type Antibody Screen 06/06/21 06/06/21 06/07/21 15:09 19:23 07:08 WBC RBC Hgb Hct MCV MCH MCHC RDW Plt Count MPV Immature Gran % (Auto) Neut % (Auto) Lymph % (Auto) [place] % (Auto) Eos % (Auto) Baso % (Auto) Lymph # (Auto) [place] # (Auto) Eos # (Auto) Baso # (Auto) Abs Immat Gran (auto) Absolute Neuts (auto) Absolute Nucleated RBC Nucleated RBC % (auto) Smear Tech's Comments ESR Sodium Potassium Chloride Carbon Dioxide Anion Gap BUN Creatinine Estim Creat Clear Calc Estimated GFR POC Glucose 140 H 184 H 58 L* Random Glucose Estimat Average Glucose Hemoglobin A1c % Lactic Acid Calcium Total Bilirubin AST ALT Alkaline Phosphatase Troponin I High Sens C-Reactive Protein Total Protein Albumin Random Vancomycin COVID-19 (ZANE) COVID-e(ye)BRAIN [facility] Blood Type Antibody Screen 06/07/21 06/07/21 06/07/21 07:48 14:03 16:17 WBC RBC Hgb Hct MCV MCH MCHC RDW Plt Count MPV Immature Gran % (Auto) Neut % (Auto) Lymph % (Auto) [place] % (Auto) Eos % (Auto) Baso % (Auto) Lymph # (Auto) [place] # (Auto) Eos # (Auto) Baso # (Auto) Abs Immat Gran (auto) Absolute Neuts (auto) Absolute Nucleated RBC Nucleated RBC % (auto) Smear Tech's Comments ESR Sodium Potassium Chloride Carbon Dioxide Anion Gap BUN Creatinine Estim Creat Clear Calc Estimated GFR POC Glucose 152 H 107 113 Random Glucose Estimat Average Glucose Hemoglobin A1c % Lactic Acid Calcium Total Bilirubin AST ALT Alkaline Phosphatase Troponin I High Sens C-Reactive Protein Total Protein Albumin Random Vancomycin COVID-19 (ZANE) COVIDniiu [facility] [employer] Blood Type Antibody Screen 06/07/21 06/07/21 06/07/21 17:56 17:56 19:44 WBC RBC Hgb Hct MCV MCH MCHC RDW Plt Count MPV Immature Gran % (Auto) Neut % (Auto) Lymph % (Auto) [place] % (Auto) Eos % (Auto) Baso % (Auto) Lymph # (Auto) [place] # (Auto) Eos # (Auto) Baso # (Auto) Abs Immat Gran (auto) Absolute Neuts (auto) Absolute Nucleated RBC Nucleated RBC % (auto) Smear Tech's Comments ESR Sodium Potassium Chloride Carbon Dioxide Anion Gap BUN Creatinine 4.09 H* Estim Creat Clear Calc 13.7 Estimated GFR 14 POC Glucose 191 H Random Glucose Estimat Average Glucose Hemoglobin A1c % Lactic Acid Calcium Total Bilirubin AST ALT Alkaline Phosphatase Troponin I High Sens C-Reactive Protein Total Protein Albumin Random Vancomycin 13.2 L COVID-19 (ZANE) [employer]Deed Blood Type Antibody Screen 06/07/21 06/08/21 06/08/21 21:36 07:05 08:47 WBC RBC Hgb Hct MCV MCH MCHC RDW Plt Count MPV Immature Gran % (Auto) Neut % (Auto) Lymph % (Auto) [place] % (Auto) Eos % (Auto) Baso % (Auto) Lymph # (Auto) [place] # (Auto) Eos # (Auto) Baso # (Auto) Abs Immat Gran (auto) Absolute Neuts (auto) Absolute Nucleated RBC Nucleated RBC % (auto) Smear Tech's Comments ESR Sodium 134 L Potassium 5.1 D Chloride 101 Carbon Dioxide 22 Anion Gap 16 BUN 34 H Creatinine 5.48 H* Estim Creat Clear Calc 10.2 Estimated GFR 10 POC Glucose 188 H Random Glucose 161 H D Estimat Average Glucose Hemoglobin A1c % Lactic Acid Calcium 8.7 Total Bilirubin AST ALT Alkaline Phosphatase Troponin I High Sens C-Reactive Protein Total Protein Albumin Random Vancomycin COVID-19 (ZANE) [employer] Blood Type A Positive Antibody Screen NEGATIVE 06/08/21 06/08/21 11:14 14:35 WBC RBC Hgb Hct MCV MCH MCHC RDW Plt Count MPV Immature Gran % (Auto) Neut % (Auto) Lymph % (Auto) [place] % (Auto) Eos % (Auto) Baso % (Auto) Lymph # (Auto) [place] # (Auto) Eos # (Auto) Baso # (Auto) Abs Immat Gran (auto) Absolute Neuts (auto) Absolute Nucleated RBC Nucleated RBC % (auto) Smear Tech's Comments ESR Sodium Potassium Chloride Carbon Dioxide Anion Gap BUN Creatinine Estim Creat Clear Calc Estimated GFR POC Glucose 139 H 110 Random Glucose Estimat Average Glucose Hemoglobin A1c % Lactic Acid Calcium Total Bilirubin AST ALT Alkaline Phosphatase Troponin I High Sens C-Reactive Protein Total Protein Albumin Random Vancomycin COVID-19 (ZANE) [employer] Blood Type Antibody Screen Narrative Narrative: 1.? Myocardial perfusion imaging study shows basal septum with ischemia/infarct pattern. Otherwise normal perfusion. 2.? Gated LVEF is 55% during stress and rest. 3. Transient ischemic dilatation not present. Airway Mallampati Class: II TM Dist: >3cm Neck ROM: Full Loose/Missing/Broken Teeth: Yes Heart: s1, s2 Lungs: b/l breath sounds Assessment and Plan Assessment Anesthesia Assessment: Anesthesia Plan Discussed and Chart Reviewed Final Anesthetic Review Family History of Problems with Anesthesia: No History of Problems with Anesthesia: No NPO: Yes ASA Class: III Final Preanesthetic Review: Meds/Allgs Chart Reviewed, Consent Obtained/Reviewed and Anes Risks/Benef Reviewed Patient Risk: High Procedure Risk: Intermediate Anesthetic Plan Anesthetic Plan: GA Disposition: Inp. Admit - Standard Bed
--- NOTE | 2021-06-08 15:25 | MHC.CM.PN ---
NURSE DIRECTOR PEOPLESOFT NOTE ELECTRONIC MEDICAL RECORD REVIEWED ALONG WITH CASE DISCUSSED ON MUTIPLE DISCIPLIANRY ROUNDS. 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
--- NOTE | 2021-06-08 15:41 | MHC.SHP ---
Pre-Procedural Eval Section A Date of Service: 06/08/21 The patient is an INPATIENT: Yes Changes since office visit: Yes Patient answered all questions The History & Physical has been completed within 30 days and I have reviewed it.: Yes Section B Chief Complaint: Pre-operative CVS risk stratification Allergies: Allergies Allergy/AdvReac Type Severity Reaction Status Date / Time lisinopril Allergy Intermediate hyperkalemi Verified 06/01/21 13:25 a lidocaine [From LIDOPRIL] Allergy Mild COUGH Verified 06/01/21 13:25 prilocaine [From LIDOPRIL] Allergy Mild COUGH Verified 06/01/21 13:25 canagliflozin [Invokana] AdvReac Mild back pain Verified 06/01/21 13:25 Hydralazine-HCTZ Allergy Unknown Unknown Uncoded 05/02/21 12:09 Plan I have reviewed the history and physical and performed a pertinent physical examination on my patient. No changes have occurred unless specified.
--- NOTE | 2021-06-08 17:23 | W.PM.OPN ---
Operative Note Operative Note Date of Service: 06/08/21 Narrative: Operative note by [facility] Preoperative diagnosis:1. Atherosclerosis with nonhealing left leg ulcer 2. osteomyelitis Postoperative diagnosis: same Procedure: 1. left below-knee amputation 2. myodesis (67190) Surgeon:August Swan M.D. Fine Arts Teacher: none Anesthesia: general Specimens: 1 Drains: none Estimated blood loss: 100 mL Indications: 75-year-old gentleman with diabetes and end-stage renal disease has a nonhealing left lateral leg ulceration. He had an angiogram earlier this week which demonstrated no below-knee flow. Now presents for below-knee amputation of the left leg. this was discussed with the patients daughter as well. The patient has signed the informed consent after reviewing risks, complications, benefits, and alternatives previously discussed with the patient. The patient was given the opportunity to ask any additional questions or voice any concerns. All questions were answered to the patient's satisfaction. Procedure in detail: patient was brought to the operating room prior to which a time-out was called for patient identification and site verification. once this was accomplished left leg was prepped and draped in the standard surgical fashion. After administration of general anesthesia approximately 10 cm below the tibial tuberosity a curvilinear incision was made over the tibia. And a posterior flap skin incision was made. Once this was done using electrocautery we went down through the skin subcu fascia down into the muscle. We were a evelia Calhoun able to identify the anterior tibial posterior tibial and peroneal vessels as we encountered them and these were tied off with 2-0 silk ties. Once we circumferentially went around the tibia. We brought this back and we used a power saw to create a reverse hockey stick cut on the bone. Once this was accomplished we resected the fibula approximately 2-3 inches above that. And then using electrocautery we took down the rest the muscle in tissue bed to create a posterior flap. Once this was all accomplished the leg was passed off the table as specimen. Adequate hemostasis was achieved wound was thoroughly irrigated down. Bony edges were filed down. using a 1/8 inch drill bit we created a hole through the tibia. Using a 2 0 poly Sorb suture we sutured the muscle to the bone performing the myodesis. Once this was accomplished adequate hemostasis was achieved deep fascial layer was reapproximated using 2 0 poly Sorb superficial layer with 3-0 poly Sorb finally skin with a 2 0 nylon in a mattress fashion along with skin clips. Xeroform and a sterile dressing were applied. At the end the case sponge instrument counts were correct. Patient tolerated the procedure well. Returned to recovery with stable vitals. This note is constructed using voice recognition software. While every effort has been made to ensure accuracy, dementia program director errors may have been included. Thank you for allowing me to participate in the care of your patient. Yours sincerely, August Swan MD, FACS, R.P.V.I.
[2021-06-08 20:10] LABS: Glucose, Whole Blood 122 mg/dL (60-115)
[2021-06-08] MEDS: amLODIPine Besylate 5 MG TABLET PO (20:37)
[2021-06-08] MEDS: carvediloL 25 MG TABLET PO (20:37)
[2021-06-08] MEDS: Atorvastatin Calcium 40 MG TABLET PO (20:37)
[2021-06-08] MEDS: Heparin Sodium,Porcine 5,000 UNIT/ML VIAL 5000 UNIT SUBCUT (23:24)
[2021-06-09 04:00] VITALS: BP 132/58; PULSE 61; RESP 18; TEMP 37.1; O2SAT 98
[2021-06-09 07:22] VITALS: BP 157/80; PULSE 58; RESP 18; TEMP 36.5; O2SAT 99
--- NOTE | 2021-06-09 07:37 | HO.POSTANES ---
Post Anesthesia Evaluation Post Anesthesia Evaluation Vital Signs: Vital Signs Temp Pulse Resp BP Pulse Ox 06/09/21 07:22 97.7 F 58 18 157/80 H 99 06/09/21 04:00 98.7 F 61 18 132/58 L 98 06/08/21 23:27 98.1 F 63 18 141/63 H 94 Anesthesia: General Mental Status: Awake Pain Control: Satisfactory Nausea/Vomiting: None Hydration: Adequate Anesthesia-Related Issues: No Anes. Related Issues
--- NOTE | 2021-06-09 07:43 | HE.PHANOTE ---
Vancomycin Dosing Addendum Vancomycin random level tonight post dialsis. Will dose based on level.
[2021-06-09 07:45] LABS: Glucose, Whole Blood 315 mg/dL (60-115)
[2021-06-09] MEDS: Heparin Sodium,Porcine 5,000 UNIT/ML VIAL 5000 UNIT SUBCUT ×3 (08:01→21:55)
[2021-06-09] MEDS: Sevelamer Carbonate Tablet 800 MG TABLET PO ×2 (08:02→16:29)
[2021-06-09] MEDS: Insulin Lispro 100 UNIT/ML 3 ML VIAL SUBCUT ×3 (08:02→21:49)
[2021-06-09] MEDS: 0.9 % Sodium Chloride Flush 3 ML SYRINGE IVFLUSH ×3 (08:02→21:50)
[2021-06-09] MEDS: Piperacillin Sodium/Tazobactam 2.25 GM in 0.9 % Sodium Chloride 50 ML IV (08:02)
[2021-06-09] MEDS: Losartan Potassium 50 MG TABLET PO (08:02)
[2021-06-09] MEDS: Multivitamin TABLET 1 TAB PO (08:03)
[2021-06-09] MEDS: amLODIPine Besylate 2.5 MG TABLET PO (08:03)
[2021-06-09] MEDS: Bumetanide 1 MG TABLET PO (08:03)
[2021-06-09] MEDS: Aspirin Enteric Coated 81 MG TABLET.DR PO (08:03)
[2021-06-09] MEDS: carvediloL 25 MG TABLET PO ×2 (08:03→21:49)
[2021-06-09] MEDS: UrsodioL 300 MG CAPSULE PO ×2 (08:03→21:49)
--- NOTE | 2021-06-09 09:56 | HO.VASCPN ---
Subjective Subjective Date of Service: 06/09/21 Patient reports: no new complaints, feels better and pain is less Interval history: Patient is doing extremely well. Postop day 1 status post BKA. he reports that the pain has significantly decreased in that left lower extremity. He did have some drainage through the dressing overnight. It was reinforce this morning. Other than that he appears to be doing fairly well this morning. Physical Exam Vital Signs: Vital Signs: Last Vital Signs Temp 97.7 F 06/09/21 07:22 Pulse 58 06/09/21 07:22 Resp 18 06/09/21 07:22 BP 157/80 H 06/09/21 07:22 Pulse Ox 99 06/09/21 07:22 BMI result Body Mass Index 27.0 Const: General: cooperative, healthy appearing and no acute distress Orientation/consciousness: oriented to person, oriented to place and oriented to time HEENT: Head: Yes normal to inspection Neck: Carotids: no bruits Chest: Chest palpation & inspection: normal inspection of the chest Resp: Effort & Inspection: normal respiratory effort and able to speak in complete sentences Auscultation: clear to auscultation bilaterally Cardio: Rate: regular rate Heart sounds: S1 normal heart sound present and S2 normal heart sound present GI: Inspection: Yes normal to inspection Skin: General skin exam: no rashes or lesions noted Wounds: amputation site ( Dressing reinforce some serosanguineous drainage) Neuro: General: oriented to person, oriented to place, oriented to time and CN's II-XI intact bilaterally Extrem: General: Yes normal to inspection, Yes full ROM and Yes no clubbing, cyanosis or edema Psych: Appearance: grossly normal and well kempt Speech and movement: Normal speech and movement present Affect: normal affect Progress Note: A&P Assessment and plan (1) PAD (peripheral artery disease): Status: Acute Assessment and Plan: patient is postop day 1 status post BKA. He reports that he is doing relatively well from this. Pain appears to be significantly better. Will plan for dressing change on Saturday. Hopefully he will be able to go to rehab shortly thereafter. Thank you for allowing us to assist in his care. If there are any questions or concerns please do not hesitate to contact us. Fall Risk Details Current Medications: Current Medications Acetaminophen (Acetaminophen 325 Mg Tablet) 650 mg PO Q6H PRN PRN Reason: Pain, Mild (Pain Scale 1-3) Last Admin: 06/03/21 21:44 Dose: 650 mg Documented by: Amlodipine Besylate (Amlodipine Besylate 2.5 Mg Tablet) 2.5 mg PO DAILY [facility]; Protocol Last Admin: 06/09/21 08:03 Dose: 2.5 mg Documented by: Amlodipine Besylate (Amlodipine Besylate 5 Mg Tablet) 5 mg PO BEDTIME [facility]; Protocol Last Admin: 06/08/21 20:37 Dose: 5 mg Documented by: Aspirin (Aspirin Enteric Coated 81 Mg Tablet.) 81 mg PO DAILY [facility] Last Admin: 06/09/21 08:03 Dose: 81 mg Documented by: Atorvastatin Calcium (Atorvastatin Calcium 40 Mg Tablet) 40 mg PO BEDTIME [facility] Last Admin: 06/08/21 20:37 Dose: 40 mg Documented by: Bumetanide (Bumetanide 1 Mg Tablet) 1 mg PO DAILY [facility]; Protocol Last Admin: 06/09/21 08:03 Dose: 1 mg Documented by: Calcitriol (Calcitriol 0.25 Mcg Capsule) 0.5 mcg PO MoWeFr [facility] Last Admin: 06/07/21 17:17 Dose: 0.5 mcg Documented by: Carvedilol (Carvedilol 25 Mg Tablet) 25 mg PO BID [facility]; Protocol Last Admin: 06/09/21 08:03 Dose: 25 mg Documented by: Dextrose (Dextrose 50 % 25 Gm/50 Ml Vial) 25 gm IVPUSH Q15M PRN; Protocol PRN Reason: per Hypoglycemia Standing Ord. Last Admin: 06/07/21 07:15 Dose: 25 gm Documented by: Glucose (Glucose Gel 15 Gm Gel..Gram.) 15 gm PO Q15M PRN; Protocol PRN Reason: per Hypoglycemia Standing Ord. Heparin Sodium (Porcine) (Heparin Sodium,Porcine 5,000 Unit/Ml Vial) 5,000 unit SUBCUT Q8H [facility] Last Admin: 06/09/21 08:01 Dose: 5,000 unit Documented by: Vancomycin HCl 500 mg/ Sodium (Chloride) 110 mls @ 110 mls/hr IV MoWeFr@[id number] [facility] Last Infusion: 06/07/21 22:50 Dose: Infused Documented by: Piperacillin Sod/Tazobactam (Sod 2.25 gm/ Sodium Chloride) 50 mls @ 100 mls/hr IV Q8H [facility] Last Infusion: 06/09/21 08:42 Dose: Infused Documented by: Insulin Human Lispro (Insulin Lispro 100 Unit/Ml 3 Ml Vial) 0 unit SUBCUT QIDACHS [facility]; Protocol Last Admin: 06/09/21 08:02 Dose: 6 unit Documented by: Losartan Potassium (Losartan Potassium 50 Mg Tablet) 50 mg PO DAILY [facility]; Protocol Last Admin: 06/09/21 08:02 Dose: 50 mg Documented by: Melatonin (Melatonin 3 Mg Tablet) 6 mg PO BEDTIME PRN PRN Reason: Insomnia Morphine Sulfate (Morphine Sulfate 4 Mg/Ml Cartridge) 4 mg IVPUSH Q2H PRN; Protocol PRN Reason: Pain, Severe (Pain Scale 7-10) Last Admin: 06/07/21 11:40 Dose: 4 mg Documented by: Multivitamins/Vitamin C (Multivitamin Tablet) 1 tab PO DAILY [facility] Last Admin: 06/09/21 08:03 Dose: 1 tab Documented by: Oxycodone HCl (Oxycodone Hcl Immed Release 5 Mg Tablet) 5 mg PO Q4H PRN PRN Reason: Pain, Moderate (Pain Scale 4-6 Last Admin: 06/07/21 16:25 Dose: 5 mg Documented by: Pharmacy Consult (Consult Rx Perform Med Rec) 1 each MISCELLANE ONCE PRN PRN Reason: Consult order Senna (Sennosides 8.6 Mg Tablet) 17.2 mg PO BEDTIME PRN PRN Reason: Constipation Sevelamer Carbonate (Sevelamer Carbonate Tablet 800 Mg Tablet) 800 mg PO TIDWM [facility] Last Admin: 06/09/21 08:02 Dose: 800 mg Documented by: Sodium Chloride (0.9 % Sodium Chloride Flush 3 Ml Syringe) 3 ml IVFLUSH QSHIFT [facility] Last Admin: 06/09/21 08:02 Dose: 3 ml Documented by: Ursodiol (Ursodiol 300 Mg Capsule) 300 mg PO BID [facility] Last Admin: 06/09/21 08:03 Dose: 300 mg Documented by: Time Spent With Patient Time: Total time spent is greater than 50% in coordination of care (as documented) at patient's floor/unit and/or counseling patient: Procedures Date of Service Date of Service: 06/09/21 Quality Stroke Does the patient have a stroke diagnosis?: No VTE Prior VTE?: No VTE Risk Level:: Medical - moderate - high VTE Device Contraindication: Treatment Not Indicated VTE Drug Contraindication: N/A - Med Ordered
[2021-06-09] MEDS: Acetaminophen 325 MG TABLET 650 MG PO (10:03)
[2021-06-09] MEDS: oxyCODONE HCl Immed Release 5 MG TABLET PO (10:03)
[2021-06-09 11:27] LABS: MANUAL DIFF FLAG NO
[2021-06-09 11:29] LABS: Basophils Percent Auto 0.1 % (0-2); Hematocrit 26.5 % (42.0-52.0); Hemoglobin 8.6 g/dl (14.0-18.0); Imm Gran Pct Auto 0.7 % (0.0-0.4); Lymphocytes Absolute Auto 0.7 X10*3/uL (1.2-4.9); Lymphocytes Percent Auto 4.9 % (20-40); Mean Corpuscular HGB Conc 32.5 g/dl (31.0-36.0); Mean Corpuscular Hemoglobin 30.3 pg (27.0-33.0); Mean Corpuscular Volume 93.3 fL (80.0-98.0); Mean Platelet Volume 10.9 fL (9.4-12.4); Monocytes Absolute Auto 0.6 X10*3/uL (0.1-1.2); Monocytes Percent Auto 4.6 % (2-11); Neutrophils Percent Auto 89.7 % (45-73); Platelet Count 213 X10*3/uL (160-400); Red Blood Count 2.84 X10*6/uL (4.60-5.80); Red Cell Distribution Width 16.3 % (11.0-16.0); White Blood Count 13.4 X10*3/uL (4.8-10.8)
--- NOTE | 2021-06-09 11:49 | MHC.CLN ---
F/U SURGERY FOR BKA 06/08. ESRD ON HEMODIALYSIS THREE TIMES WEEKLY. RD RECOMMENDS DIET=DIABETIC 2000 KCAL, 2 GRAM SODIUM, LOW PHOSPHORUS, LOW POTASSIUM. INTAKE POST SURGERY APPEARS GOOD.
--- NOTE | 2021-06-09 11:58 | P.PNIM_ITS ---
Subjective Subjective Date of Service: 06/09/21 Interval History: being followed for left foot diabetic ulcer, status post BKA yesterday by Dr. Swan denies pain, noted to have drainage from wound overnight, denies fever , chills, no acute events overnight. 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 awake alert,in no acute distress. HEENT? anicteric sclerae Neck no JVD. CVS? regular rate rhythm, Respiratory lungs clear to auscultation, no respiratory distress, no wheeze, no rhonchi. Gastrointestinal abdomen soft, nontender, bowel sounds audible Extremities? left BKA dressing in place Neuro nonfocal, speech clear Skin no rash Objective Data Active Medications Acetaminophen (Acetaminophen 325 Mg Tablet) 650 mg PO Q6H PRN PRN Reason: Pain, Mild (Pain Scale 1-3) Last Admin: 06/09/21 10:03 Dose: 650 mg Documented by: TRAVIS Amlodipine Besylate (Amlodipine Besylate 2.5 Mg Tablet) 2.5 mg PO DAILY [facility]; Protocol Last Admin: 06/09/21 08:03 Dose: 2.5 mg Documented by: PORSHAEMA Amlodipine Besylate (Amlodipine Besylate 5 Mg Tablet) 5 mg PO BEDTIME [facility]; Pr otocol Last Admin: 06/08/21 20:37 Dose: 5 mg Documented by: ROBINSON Aspirin (Aspirin Enteric Coated 81 Mg Tablet.) 81 mg PO DAILY [facility] Last Admin: 06/09/21 08:03 Dose: 81 mg Documented by: TRAVIS Atorvastatin Calcium (Atorvastatin Calcium 40 Mg Tablet) 40 mg PO BEDTIME [facility]AN[facility] Last Admin: 06/08/21 20:37 Dose: 40 mg Documented by: ROBINSON Bumetanide (Bumetanide 1 Mg Tablet) 1 mg PO DAILY [facility]; Protocol Last Admin: 06/09/21 08:03 Dose: 1 mg Documented by: TRAVIS Calcitriol (Calcitriol 0.25 Mcg Capsule) 0.5 mcg PO MoWeFr [facility] Last Admin: 06/07/21 17:17 Dose: 0.5 mcg Documented by: DAREK Carvedilol (Carvedilol 25 Mg Tablet) 25 mg PO BID [facility]; Protocol Last Admin: 06/09/21 08:03 Dose: 25 mg Documented by: TRAVIS Dextrose (Dextrose 50 % 25 Gm/50 Ml Vial) 25 gm IVPUSH Q15M PRN; Protocol PRN Reason: per Hypoglycemia Standing Ord. Last Admin: 06/07/21 07:15 Dose: 25 gm Documented by: CY Glucose (Glucose Gel 15 Gm Gel..Gram.) 15 gm PO Q15M PRN; Protocol PRN Reason: per Hypoglycemia Standing Ord. Heparin Sodium (Porcine) (Heparin Sodium,Porcine 5,000 Unit/Ml Vial) 5,000 unit SUBCUT Q8H [facility] Last Admin: 06/09/21 08:01 Dose: 5,000 unit Documented by: TRAVIS Vancomycin HCl 500 mg/ Sodium (Chloride) 110 mls @ 110 mls/hr IV MoWeFr@2000 [facility] Last Infusion: 06/07/21 22:50 Dose: 0 mls/hr Documented by: DAREK Piperacillin Sod/Tazobactam (Sod 2.25 gm/ Sodium Chloride) 50 mls @ 100 mls/hr IV Q8H [facility] Last Infusion: 06/09/21 08:42 Dose: 0 mls/hr Documented by: TRAVIS Insulin Human Lispro (Insulin Lispro 100 Unit/Ml 3 Ml Vial) 0 unit SUBCUT QIDACHS [facility]; Protocol Last Admin: 06/09/21 11:42 Dose: Not Given Documented by: TRAVIS Non-Admin Reason: Off unit: Dialysis Losartan Potassium (Losartan Potassium 50 Mg Tablet) 50 mg PO DAILY [facility]; Protocol Last Admin: 06/09/21 08:02 Dose: 50 mg Documented by: TRAVIS Melatonin (Melatonin 3 Mg Tablet) 6 mg PO BEDTIME PRN PRN Reason: Insomnia Morphine Sulfate (Morphine Sulfate 4 Mg/Ml Cartridge) 4 mg IVPUSH Q2H PRN; Protocol PRN Reason: Pain, Severe (Pain Scale 7-10) Last Admin: 06/07/21 11:40 Dose: 4 mg Documented by: MALIK Multivitamins/Vitamin C (Multivitamin Tablet) 1 tab PO DAILY [facility] Last Admin: 06/09/21 08:03 Dose: 1 tab Documented by: TRAVIS Oxycodone HCl (Oxycodone Hcl Immed Release 5 Mg Tablet) 5 mg PO Q4H PRN PRN Reason: Pain, Moderate (Pain Scale 4-6 Last Admin: 06/09/21 10:03 Dose: 5 mg Documented by: TRAVIS Pharmacy Consult (Consult Rx Perform Med Rec) 1 each MISCELLANE ONCE PRN PRN Reason: Consult order Senna (Sennosides 8.6 Mg Tablet) 17.2 mg PO BEDTIME PRN PRN Reason: Constipation Sevelamer Carbonate (Sevelamer Carbonate Tablet 800 Mg Tablet) 800 mg PO TIDWM [facility] Last Admin: 06/09/21 11:42 Dose: Not Given Documented by: TRAVIS Non-Admin Reason: Off unit: Dialysis Sodium Chloride (0.9 % Sodium Chloride Flush 3 Ml Syringe) 3 ml IVFLUSH QSHIFT [facility] Last Admin: 06/09/21 08:02 Dose: 3 ml Documented by: TRAVIS Ursodiol (Ursodiol 300 Mg Capsule) 300 mg PO BID [facility] Last Admin: 06/09/21 08:03 Dose: 300 mg Documented by: TRAVIS Labs CBC & Chem 7: 06/09/21 11:19 06/08/21 08:47 Labs: Laboratory Results - last 24 hr 06/08/21 06/08/21 06/08/21 14:35 15:11 20:06 MCV MCH MCHC RDW Plt Count MPV Immature Gran % (Auto) Neut % (Auto) Lymph % (Auto) Gaines % (Auto) Eos % (Auto) Baso % (Auto) Lymph # (Auto) Gaines # (Auto) Eos # (Auto) Baso # (Auto) Abs Immat Gran (auto) Absolute Neuts (auto) Absolute Nucleated RBC Nucleated RBC % (auto) POC Glucose 110 122 H Blood Type A Positive Antibody Screen NEGATIVE 06/09/21 06/09/21 07:20 11:19 MCV 93.3 MCH 30.3 MCHC 32.5 RDW 16.3 H Plt Count 213 D MPV 10.9 Immature Gran % (Auto) 0.7 H Neut % (Auto) 89.7 H Lymph % (Auto) 4.9 L Gaines % (Auto) 4.6 Eos % (Auto) 0.0 Baso % (Auto) 0.1 Lymph # (Auto) 0.7 L Gaines # (Auto) 0.6 Eos # (Auto) 0.0 Baso # (Auto) 0.0 Abs Immat Gran (auto) 0.10 H Absolute Neuts (auto) 12.0 H Absolute Nucleated RBC 0.000 Nucleated RBC % (auto) 0.0 POC Glucose 315 H Blood Type Antibody Screen Assessment and Plan (1) PAD (peripheral artery disease): Status: Acute (2) Diabetic foot infection: Status: Acute (3) Wound of left foot: Status: Acute (4) End-stage renal disease on hemodialysis: Status: Acute (5) High cholesterol: Status: Acute (6) Hypertension: Status: Acute (7) Diabetes: Status: Acute Plan 75-year-old old male with a past medical history of hypertension, hyperlipidemia, diabetes, diabetic foot infection, CAD status post CABG, ESRD on hemodialysis; anemia of chronic disease, presented to the hospital with chief complaint of non healing diabetic foot infection.? Diabetic left foot nonhealing ulcer with gangrene/ cellulitis dorsum of foot status post left BKA due to nonhealing diabetic ulcer POD #1, good pain control on IV vancomycin and Zosyn day 8 renally dose , since noted to have rise in WBC will continue antibiotic for 1 more day WBC bumped to 34.9 likely reactive, no fevers, no chills follow clinical cou rse, initial blood cultures x2 neg continue pain medications oxycodone 5 mg q.4 hours and morphine 4 mg IV Q 2H / antiemetics/ dressing care per Dr. Swan, he plans to change dressing on Saturday and then discharged to rehab. History of diabetes: blood sugars elevated this morning ,since Lantus was d iscontinued due to low blood sugars in last couple days, continue insulin sliding scale, diabetic diet and monitor blood sugars closely postoperatively. will place on Lantus 6 units at bedtime( at home takes Lantus 10 units b.i.d.) History of ESRD: continue hemodialysis, continue home medication sevelamer, and Bumex, being followed by Nephrology. History of hypertension on multiple antihypertensive, Coreg, Cozaar, Bumex and Norvasc, dose of losartan increased to 50 mg on 06/07 due to elevated blood pressures follow BP Hyperlipidemia: Continue Lipitor anemia of chronic disease hematocrit drop from 31-26.5 postoperative, follow CBC, patient asymptomatic hold transfusion. coronary artery disease no chest pain, continue aspirin, Lipitor and Coreg. DVT prophylaxis:? Subcu heparin Code status: Full code Need for inaptient: status post left BKA POD #1 today will require dressing c hange by vascular surgeon on Saturday /requiring IV pain medication. Quality Stroke Does the patient have a stroke diagnosis?: No VTE Prior VTE?: No VTE Risk Level:: Medical - moderate - high VTE Device Contraindication: Treatment Not Indicated VTE Drug Contraindication: N/A - Med Ordered
[2021-06-09 12:02] LABS: Anion Gap 12 (12-20); Blood Urea Nitrogen 18 mg/dL (9-16); Calcium 7.9 mg/dL (8.4-10.2); Carbon Dioxide 23 mmol/L (22-29); Chloride 103 mmol/L (96-108); Creatinine Clr Calc Pharmacy 20.2; Estimated Glomerular Filt Rate 22; Glucose Random 159 mg/dL (60-115); Potassium 3.7 mmol/L (3.3-5.1); Sodium 133 mmol/L (135-145)
[2021-06-09 13:00] VITALS: BP 135/60; PULSE 57; RESP 18; TEMP 36.9; O2SAT 95
[2021-06-09 13:10] LABS: Glucose, Whole Blood 129 mg/dL (60-115)
--- NOTE | 2021-06-09 13:11 | MHC.CM.PN ---
Addendum entered by Maryana Nguyen 06/09/21 15:01: AFTER SPEAKING WITH THE HCP ADDED [facility] FOR HEMODIALYSIS Original Note: nurse case manage note electronic medical record reviewed aslong with case discussed with the hospitalist patient pod #1 l zac ocasio pt/ot evaluation spoke with florencio govea and dtr/hcp karen ivy about possible going for str , she is in agreemnt with this i infomred her we needed to go with [facility] contract m she asked me to make referrals to ron and a few others referals made [facility] , also to jessy e/w to start vs 2. home with family and [facility] for (rn-pt-ot) anticipate here over the weekend
[2021-06-09] MEDS: calcitrioL 0.25 MCG CAPSULE 0.5 MCG PO (15:11)
[2021-06-09 15:34] VITALS: BP 119/45; PULSE 62; RESP 18; TEMP 36.9; O2SAT 93
[2021-06-09 16:15] LABS: Glucose, Whole Blood 255 mg/dL (60-115)
[2021-06-09 18:35] LABS: Vancomycin Random 14.5 mcg/mL (15-20)
[2021-06-09 19:23] VITALS: BP 170/68; PULSE 55; RESP 18; TEMP 37; O2SAT 93
[2021-06-09 20:02] LABS: Glucose, Whole Blood 222 mg/dL (60-115)
[2021-06-09] MEDS: Atorvastatin Calcium 40 MG TABLET PO (21:49)
[2021-06-09] MEDS: Insulin Glargine,Hum.rec.anlog 100 UNIT/ML 10 ML VIAL 6 UNIT SUBCUT (21:49)
[2021-06-09] MEDS: amLODIPine Besylate 5 MG TABLET PO (21:49)
[2021-06-09 23:31] VITALS: BP 109/53; PULSE 57; RESP 18; TEMP 37.4; O2SAT 95
[2021-06-10 01:21] LABS: Glucose, Whole Blood 175 mg/dL (60-115)
[2021-06-10 03:20] VITALS: BP 141/85; PULSE 54; RESP 18; TEMP 36.7; O2SAT 96
[2021-06-10 06:02] LABS: Hematocrit 24.8 % (42.0-52.0); Hemoglobin 7.9 g/dl (14.0-18.0); Mean Corpuscular HGB Conc 31.9 g/dl (31.0-36.0); Mean Corpuscular Hemoglobin 30.3 pg (27.0-33.0); Mean Platelet Volume 11.5 fL (9.4-12.4); Platelet Count 151 X10*3/uL (160-400); Red Blood Count 2.61 X10*6/uL (4.60-5.80); Red Cell Distribution Width 16.8 % (11.0-16.0); White Blood Count 7.2 X10*3/uL (4.8-10.8)
[2021-06-10 07:38] LABS: Glucose, Whole Blood 159 mg/dL (60-115)
[2021-06-10 08:00] VITALS: BP 138/65; PULSE 53; RESP 18; TEMP 36.4; O2SAT 96
[2021-06-10] MEDS: Heparin Sodium,Porcine 5,000 UNIT/ML VIAL 5000 UNIT SUBCUT (08:17)
[2021-06-10] MEDS: Sevelamer Carbonate Tablet 800 MG TABLET PO ×3 (08:17→16:48)
[2021-06-10] MEDS: Insulin Lispro 100 UNIT/ML 3 ML VIAL SUBCUT ×3 (08:18→21:33)
[2021-06-10] MEDS: amLODIPine Besylate 2.5 MG TABLET PO (09:50)
[2021-06-10] MEDS: Losartan Potassium 50 MG TABLET PO (09:50)
[2021-06-10] MEDS: UrsodioL 300 MG CAPSULE PO ×2 (09:50→21:28)
[2021-06-10] MEDS: Bumetanide 1 MG TABLET PO (09:50)
[2021-06-10] MEDS: Aspirin Enteric Coated 81 MG TABLET.DR PO (09:50)
[2021-06-10] MEDS: Multivitamin TABLET 1 TAB PO (09:50)
[2021-06-10 09:51] VITALS: BP 140/68; PULSE 55
--- NOTE | 2021-06-10 10:32 | HO.PM.IMPN ---
Subjective Subjective Date of Service: 06/10/21 <UMA Miller - Last Filed: 06/10/21 10:45> 06/11/21 <Baljit Koch DO - Last Filed: 06/11/21 08:01> Interval History: Seen and evaluated this morning Overnight had increased drainage from surgical site requiring reinforcement of dressing Patient reports mild pain at the surgical site. Denies any fever, chills <UMA Miller - Last Filed: 06/10/21 10:45> Review of Systems Review of Systems: Yes all other systems are reviewed and are negative <UMA Miller - Last Filed: 06/10/21 10:45> Constitutional Constitutional: Denies chills and Denies fever(s) <UMA Miller Last Filed: 06/10/21 10:45> Cardiovascular Cardiovascular: Denies chest pain, Denies palpitations and Denies dyspnea <UMA Miller - Last Filed: 06/10/21 10:45> Respiratory Respiratory: Denies cough and Denies dyspnea <UMA Miller - Last Filed: 06/10/21 10:45> Endocrine Endocrine: Denies palpitations <UMA Miller Last Filed: 06/10/21 10:45> Physical Exam Vital Signs: Vital Signs: Last Vital Signs Temp 97.6 F 06/10/21 08:00 Pulse 55 06/10/21 09:51 Resp 18 06/10/21 08:00 BP 140/68 H 06/10/21 09:51 Pulse Ox 96 06/10/21 08:00 BMI result Body Mass Index 27.0 <UMA Miller Last Filed: 06/10/21 10:45> Const: General: cooperative, comfortable, no acute distress, alert and awake <UMA Miller Last Filed: 06/10/21 10:45> Nutritional Appearance: average body habitus <UMA Miller Last Filed: 06/10/21 10:45> Orientation/consciousness: patient oriented x3 <UMA Miller Last Filed: 06/10/21 10:45> Resp: Effort & Inspection: normal respiratory effort and able to speak in complete sentences <UMA Miller - Last Filed: 06/10/21 10:45> Auscultation: clear to auscultation bilaterally <UMA Miller Last Filed: 06/10/21 10:45> Cardio: Heart sounds: S1 normal heart sound present and S2 normal heart sound present <UMA Miller Last Filed: 06/10/21 10:45> GI: Inspection: No distended <UMA Miller - Last Filed: 06/10/21 10:45> Palpation (GI): Soft to palpation and nontender <UMA Miller - Last Filed: 06/10/21 10:45> Neuro: General: patient oriented x3 <UMA Miller - Last Filed: 06/10/21 10:45> Extrem: Other: s/p left BKA; stump wrapped in clean, dry dressing/meena bandage <UMA Miller Last Filed: 06/10/21 10:45> Objective Data Active Medications Acetaminophen (Acetaminophen 325 Mg Tablet) 650 mg PO Q6H PRN PRN Reason: Pain, Mild (Pain Scale 1-3) Last Admin: 06/09/21 10:03 Dose: 650 mg Documented by: TRAVIS Amlodipine Besylate (Amlodipine Besylate 2.5 Mg Tablet) 2.5 mg PO DAILY [facility]; Protocol Last Admin: 06/10/21 09:50 Dose: 2.5 mg Documented by: SRINIVAS Amlodipine Besylate (Amlodipine Besylate 5 Mg Tablet) 5 mg PO BEDTIME [facility]; Protocol Last Admin: 06/09/21 21:49 Dose: 5 mg Documented by: LISS Aspirin (Aspirin Enteric Coated 81 Mg Tablet.Dr) 81 mg PO DAILY [facility] Last Admin: 06/10/21 09:50 Dose: 81 mg Documented by: SRINIVAS Atorvastatin Calcium (Atorvastatin Calcium 40 Mg Tablet) 40 mg PO BEDTIME [facility] Last Admin: 06/09/21 21:49 Dose: 40 mg Documented by: LISS Bumetanide (Bumetanide 1 Mg Tablet) 1 mg PO DAILY [facility]; Protocol Last Admin: 06/10/21 09:50 Dose: 1 mg Documented by: SRINIVAS Calcitriol (Calcitriol 0.25 Mcg Capsule) 0.5 mcg PO MoWeFr [facility] Last Admin: 06/09/21 15:11 Dose: 0.5 mcg Documented by: TRAVIS Carvedilol (Carvedilol 25 Mg Tablet) 25 mg PO BID [facility]; Protocol Last Admin: 06/10/21 09:51 Dose: Not Given Documented by: SRINIVAS Non-Admin Reason: Decreased Heart Rate Dextrose (Dextrose 50 % 25 Gm/50 Ml Vial) 25 gm IVPUSH Q15M PRN; Protocol PRN Reason: per Hypoglycemia Standing Ord. Last Admin: 06/07/21 07:15 Dose: 25 gm Documented by: CY Glucose (Glucose Gel 15 Gm Gel..Gram.) 15 gm PO Q15M PRN; Protocol PRN Reason: per Hypoglycemia Standing Ord. Heparin Sodium (Porcine) (Heparin Sodium,Porcine 5,000 Unit/Ml Vial) 5,000 unit SUBCUT Q8H [facility] Last Admin: 06/10/21 08:17 Dose: 5,000 unit Documented by: SRINIVAS Insulin Glargine (Insulin Glargine,Hum.Rec.Anlog 100 Unit/Ml 10 Ml Vial) 6 unit SUBCUT BEDTIME [facility] Last Admin: 06/09/21 21:49 Dose: 6 unit Documented by: LISS Insulin Human Lispro (Insulin Lispro 100 Unit/Ml 3 Ml Vial) 0 unit SUBCUT QIDACHS [facility]; Protocol Last Admin: 06/10/21 08:18 Dose: 2 unit Documented by: SRINIVAS Losartan Potassium (Losartan Potassium 50 Mg Tablet) 50 mg PO DAILY [facility]; Protocol Last Admin: 06/10/21 09:50 Dose: 50 mg Documented by: SRINIVAS Melatonin (Melatonin 3 Mg Tablet) 6 mg PO BEDTIME PRN PRN Reason: Insomnia Morphine Sulfate (Morphine Sulfate 4 Mg/Ml Cartridge) 4 mg IVPUSH Q2H PRN; Protocol PRN Reason: Pain, Severe (Pain Scale 7-10) Last Admin: 06/07/21 11:40 Dose: 4 mg Documented by: MALIK Multivitamins/Vitamin C (Multivitamin Tablet) 1 tab PO DAILY [facility] Last Admin: 06/10/21 09:50 Dose: 1 tab Documented by: SRINIVAS Oxycodone HCl (Oxycodone Hcl Immed Release 5 Mg Tablet) 5 mg PO Q4H PRN PRN Reason: Pain, Moderate (Pain Scale 4-6 Last Admin: 06/09/21 10:03 Dose: 5 mg Documented by: TRAVIS Pharmacy Consult (Consult Rx Perform Med Rec) 1 each MISCELLANE ONCE PRN PRN Reason: Consult order Senna (Sennosides 8.6 Mg Tablet) 17.2 mg PO BEDTIME PRN PRN Reason: Constipation Sevelamer Carbonate (Sevelamer Carbonate Tablet 800 Mg Tablet) 800 mg PO TIDWM [facility] Last Admin: 06/10/21 08:17 Dose: 800 mg Documented by: SRINIVAS Sodium Chloride (0.9 % Sodium Chloride Flush 3 Ml Syringe) 3 ml IVFLUSH QSHIFT [facility] Last Admin: 06/10/21 08:35 Dose: Not Given Documented by: TRAVIS Non-Admin Reason: Previously Administered Ursodiol (Ursodiol 300 Mg Capsule) 300 mg PO BID [facility] Last Admin: 06/10/21 09:50 Dose: 300 mg Documented by: SRINIVAS <UMA Miller - Last Filed: 06/10/21 10:45> Labs CBC & Chem 7: : 06/11/21 03:07 06/11/21 03:07 <UMA Miller - Last Filed: 06/10/21 10:45> Labs: Laboratory Results - last 24 hr 06/09/21 06/09/21 06/09/21 11:19 11:19 13:05 MCV 93.3 MCH 30.3 MCHC 32.5 RDW 16.3 H Plt Count 213 D MPV 10.9 Immature Gran % (Auto) 0.7 H Neut % (Auto) 89.7 H Lymph % (Auto) 4.9 L Mccreary % (Auto) 4.6 Eos % (Auto) 0.0 Baso % (Auto) 0.1 Lymph # (Auto) 0.7 L Mccreary # (Auto) 0.6 Eos # (Auto) 0.0 Baso # (Auto) 0.0 Abs Immat Gran (auto) 0.10 H Absolute Neuts (auto) 12.0 H Absolute Nucleated RBC 0.000 Nucleated RBC % (auto) 0.0 Anion Gap 12 Estim Creat Clear Calc 20.2 Estimated GFR 22 POC Glucose 129 H Random Glucose 159 H Calcium 7.9 L D Random Vancomycin 06/09/21 06/09/21 06/09/21 15:37 17:56 19:26 MCV MCH MCHC RDW Plt Count MPV Immature Gran % (Auto) Neut % (Auto) Lymph % (Auto) Mccreary % (Auto) Eos % (Auto) Baso % (Auto) Lymph # (Auto) Mccreary # (Auto) Eos # (Auto) Baso # (Auto) Abs Immat Gran (auto) Absolute Neuts (auto) Absolute Nucleated RBC Nucleated RBC % (auto) Anion Gap Estim Creat Clear Calc Estimated GFR POC Glucose 255 H 222 H Random Glucose Calcium Random Vancomycin 14.5 L 06/10/21 06/10/21 06/10/21 01:17 05:25 07:28 MCV 95.0 MCH 30.3 MCHC 31.9 RDW 16.8 H Plt Count 151 L D MPV 11.5 Immature Gran % (Auto) Neut % (Auto) Lymph % (Auto) Mccreary % (Auto) Eos % (Auto) Baso % (Auto) Lymph # (Auto) Mccreary # (Auto) Eos # (Auto) Baso # (Auto) Abs Immat Gran (auto) Absolute Neuts (auto) Absolute Nucleated RBC 0.000 Nucleated RBC % (auto) 0.0 Anion Gap Estim Creat Clear Calc Estimated GFR POC Glucose 175 H 159 H Random Glucose Calcium Random Vancomycin <UMA Miller - Last Filed: 06/10/21 10:45> Assessment and Plan (1) PAD (peripheral artery disease): Status: Acute <UMA Miller - Last Filed: 06/10/21 10:45> Plan 75-year-old old male with a past medical history of hypertension, hyperlipidemia, diabetes, diabetic foot infection, CAD status post CABG, ESRD on hemodialysis; anemia of chronic disease, presented to the hospital with chief complaint of non healing diabetic foot infection.? 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 Swan, he plans to change dressing on Saturday and then discharged to rehab. diabetes: resumed on lower dose of Lantus, 6U (take 10 bid at baseline) continue insulin sliding scale, diabetic diet and monitor blood sugars closely acute on chrnoic anemia of chronic disease secondary to acute blood loss from surgery pt asymptomatic, will hold on blood transfusion follow CBC, will consider transfusion if H/H drops further History of ESRD: continue hemodialysis, continue home medication sevelamer, and Bumex Nephrology following hypertension on multiple antihypertensive, Coreg, Cozaar, Bumex and Norvasc, dose of losartan increased to 50 mg on 06/07 due to elevated blood pressures follow BP Hyperlipidemia: Continue Lipitor coronary artery disease seen by cardiology for preop eval, underwent nuclear stress test prior to surgery showing no major large territory ischemia no chest pain continue aspirin, Lipitor and Coreg. DVT prophylaxis:? Subcu heparin Code status: Full code Need for inpatient: status post left BKA POD #2 today will require dressing change by vascular surgeon on Saturday /requiring IV pain medication. <UMA Miller - Last Filed: 06/10/21 10:45> 75-year-old old male with a past medical history of hypertension, hyperlipidemia, diabetes, diabetic foot infection, CAD status post CABG, ESRD on hemodialysis; anemia of chronic disease, presented to the hospital with chief complaint of non healing diabetic foot infection.? 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 Swan, he plans to change dressing on Saturday and then discharged to rehab. diabetes: resumed on lower dose of Lantus, 6U (take 10 bid at baseline) continue insulin sliding scale, diabetic diet and monitor blood sugars closely acute on chrnoic anemia of chronic disease secondary to acute blood loss from surgery pt asymptomatic, will hold on blood transfusion follow CBC, will consider transfusion if H/H drops further History of ESRD: continue hemodialysis, continue home medication sevelamer, and Bumex Nephrology following hypertension on multiple antihypertensive, Coreg, Cozaar, Bumex and Norvasc, dose of losartan increased to 50 mg on 06/07 due to elevated blood pressures follow BP Hyperlipidemia: Continue Lipitor coronary artery disease seen by cardiology for preop eval, underwent nuclear stress test prior to surgery showing no major large territory ischemia no chest pain continue aspirin, Lipitor and Coreg. DVT prophylaxis:? Subcu heparin Code status: Full code Chart reviewed; patient examined. Agree with history and physical and plan as outlined by Ms. Bean. Need for inpatient: status post left BKA POD #2 today will require dressing change by vascular surgeon on Saturday /requiring IV pain medication. <Baljit Koch DO - Last Filed: 06/11/21 08:01> Quality Stroke Does the patient have a stroke diagnosis?: No <UMA Miller - Last Filed: 06/10/21 10:45> VTE Prior VTE?: No <UMA Miller - Last Filed: 06/10/21 10:45> VTE Risk Level:: Medical - moderate - high <UMA Miller - Last Filed: 06/10/21 10:45> VTE Device Contraindication: Treatment Not Indicated <UMA Miller - Last Filed: 06/10/21 10:45> VTE Drug Contraindication: N/A - Med Ordered <UMA Miller - Last Filed: 06/10/21 10:45>
[2021-06-10 11:15] LABS: Glucose, Whole Blood 145 mg/dL (60-115)
[2021-06-10 15:25] LABS: INTERNATIONAL NORM RATIO 1.2 (0.9-1.1); Prothrombin Time 13.6 SEC (9.9-13.0)
[2021-06-10 16:00] VITALS: BP 151/71; PULSE 62; RESP 18; TEMP 37.1; O2SAT 96
[2021-06-10 16:33] LABS: Glucose, Whole Blood 221 mg/dL (60-115)
[2021-06-10] MEDS: 0.9 % Sodium Chloride Flush 3 ML SYRINGE IVFLUSH ×2 (16:48→21:34)
[2021-06-10 19:27] VITALS: BP 171/74; PULSE 54; RESP 18; TEMP 36.9; O2SAT 98
[2021-06-10 20:15] LABS: Glucose, Whole Blood 160 mg/dL (60-115)
[2021-06-10] MEDS: amLODIPine Besylate 5 MG TABLET PO (21:27)
[2021-06-10] MEDS: Atorvastatin Calcium 40 MG TABLET PO (21:27)
[2021-06-10] MEDS: carvediloL 25 MG TABLET PO (21:28)
[2021-06-10] MEDS: Insulin Glargine,Hum.rec.anlog 100 UNIT/ML 10 ML VIAL 6 UNIT SUBCUT (21:28)
[2021-06-10] MEDS: Acetaminophen 325 MG TABLET 650 MG PO (22:13)
[2021-06-11] VITALS (8 sets, daily range): BP systolic 117–182; BP diastolic 56–80; PULSE 48–54; RESP 14–18; TEMP 36.1–36.7; O2SAT 96–100
[2021-06-11 04:24] LABS: Hematocrit 25.4 % (42.0-52.0); Mean Corpuscular HGB Conc 31.5 g/dl (31.0-36.0); Mean Corpuscular Hemoglobin 29.5 pg (27.0-33.0); Mean Corpuscular Volume 93.7 fL (80.0-98.0); Mean Platelet Volume 11.9 fL (9.4-12.4); Platelet Count 158 X10*3/uL (160-400); Red Blood Count 2.71 X10*6/uL (4.60-5.80); Red Cell Distribution Width 17.1 % (11.0-16.0); White Blood Count 7.6 X10*3/uL (4.8-10.8)
[2021-06-11 04:46] LABS: Anion Gap 18 (12-20); Blood Urea Nitrogen 66 mg/dL (9-16); Calcium 8.2 mg/dL (8.4-10.2); Carbon Dioxide 19 mmol/L (22-29); Chloride 99 mmol/L (96-108); Creatinine Clr Calc Pharmacy 8.3; Estimated Glomerular Filt Rate 8; Glucose Random 209 mg/dL (60-115); Potassium 5.8 mmol/L (3.3-5.1); Sodium 130 mmol/L (135-145)
[2021-06-11 07:57] LABS: Glucose, Whole Blood 164 mg/dL (60-115)
[2021-06-11] MEDS: Losartan Potassium 50 MG TABLET PO (08:20)
[2021-06-11] MEDS: Sevelamer Carbonate Tablet 800 MG TABLET PO ×3 (08:20→16:38)
[2021-06-11] MEDS: Insulin Lispro 100 UNIT/ML 3 ML VIAL SUBCUT ×3 (08:20→21:10)
[2021-06-11] MEDS: Multivitamin TABLET 1 TAB PO (08:20)
[2021-06-11] MEDS: Bumetanide 1 MG TABLET PO (08:20)
[2021-06-11] MEDS: 0.9 % Sodium Chloride Flush 3 ML SYRINGE IVFLUSH ×3 (08:20→21:05)
[2021-06-11] MEDS: carvediloL 25 MG TABLET PO ×2 (08:21→21:04)
[2021-06-11] MEDS: amLODIPine Besylate 2.5 MG TABLET PO (08:21)
[2021-06-11] MEDS: UrsodioL 300 MG CAPSULE PO ×2 (08:21→21:04)
[2021-06-11] MEDS: Aspirin Enteric Coated 81 MG TABLET.DR PO (08:21)
--- NOTE | 2021-06-11 09:32 | P.PNIM_ITS ---
Subjective Subjective Date of Service: 06/11/21 <UMA Miller - Last Filed: 06/11/21 11:04> 06/11/21 <Baljit Koch DO - Last Filed: 06/11/21 15:10> Interval History: Seen and examined this morning No overnight events Less weeping from wound Mild pain at surgical site. Denies fever, chills <UMA Miller - Last Filed: 06/11/21 11:04> Review of Systems Review of Systems: Yes all other systems are reviewed and are negative <UMA Miller - Last Filed: 06/11/21 11:04> Constitutional Constitutional: Denies chills and Denies fever(s) <UMA Miller - Last Filed: 06/11/21 11:04> Cardiovascular Cardiovascular: Denies chest pain, Denies palpitations and Denies dyspnea <UMA Miller - Last Filed: 06/11/21 11:04> Respiratory Respiratory: Denies cough and Denies dyspnea <UMA Miller - Last Filed: 06/11/21 11:04> Gastrointestinal Gastrointestinal: Denies abdominal pain <UMA Miller - Last Filed: 06/11/21 11:04> Endocrine Endocrine: Denies palpitations <UMA Miller - Last Filed: 06/11/21 11:04> Physical Exam Vital Signs: Vital Signs: Last Vital Signs Temp 97.6 F 06/11/21 06:35 Pulse 54 06/11/21 07:21 Resp 18 06/11/21 07:21 BP 181/74 H 06/11/21 07:21 Pulse Ox 96 06/11/21 07:21 BMI result Body Mass Index 27.0 <UMA Miller - Last Filed: 06/11/21 11:04> Const: General: cooperative, comfortable, no acute distress, alert and awake <UMA Miller - Last Filed: 06/11/21 11:04> Nutritional Appearance: average body habitus <UMA Miller - Last Filed: 06/11/21 11:04> Orientation/consciousness: patient oriented x3 <UMA Miller - Last Filed: 06/11/21 11:04> Resp: Effort & Inspection: normal respiratory effort and able to speak in complete sentences <UMA Miller - Last Filed: 06/11/21 11:04> Auscultation: clear to auscultation bilaterally <UMA Miller Last Filed: 06/11/21 11:04> Cardio: Heart sounds: S1 normal heart sound present and S2 normal heart sound present <UMA Miller - Last Filed: 06/11/21 11:04> GI: Inspection: No distended <UMA Miller - Last Filed: 06/11/21 11:04> Palpation (GI): Soft to palpation and nontender <UMA Miller - Last Filed: 06/11/21 11:04> Neuro: General: patient oriented x3 <UMA Miller - Last Filed: 06/11/21 11:04> Extrem: Other: s/p left BKA; stump wrapped in clean, dry dressing/meena bandage <UMA Miller Last Filed: 06/11/21 11:04> Objective Data Active Medications Acetaminophen (Acetaminophen 325 Mg Tablet) 650 mg PO Q6H PRN PRN Reason: Pain, Mild (Pain Scale 1-3) Last Admin: 06/10/21 22:13 Dose: 650 mg Documented by: CASH Amlodipine Besylate (Amlodipine Besylate 2.5 Mg Tablet) 2.5 mg PO DAILY [facility]; Protocol Last Admin: 06/11/21 08:21 Dose: 2.5 mg Documented by: TRAVIS Amlodipine Besylate (Amlodipine Besylate 5 Mg Tablet) 5 mg PO BEDTIME [facility]; Protocol Last Admin: 06/10/21 21:27 Dose: 5 mg Documented by: CASH Aspirin (Aspirin Enteric Coated 81 Mg Tablet.) 81 mg PO DAILY [facility] Last Admin: 06/11/21 08:21 Dose: 81 mg Documented by: TRAVIS Atorvastatin Calcium (Atorvastatin Calcium 40 Mg Tablet) 40 mg PO BEDTIME [facility] Last Admin: 06/10/21 21:27 Dose: 40 mg Documented by: CASH Bumetanide (Bumetanide 1 Mg Tablet) 1 mg PO DAILY [facility]; Protocol Last Admin: 06/11/21 08:20 Dose: 1 mg Documented by: TRAVIS Calcitriol (Calcitriol 0.25 Mcg Capsule) 0.5 mcg PO MoWeFr [facility] Last Admin: 06/09/21 15:11 Dose: 0.5 mcg Documented by: TRAVIS Carvedilol (Carvedilol 25 Mg Tablet) 25 mg PO BID [facility]; Protocol Last Admin: 06/11/21 08:21 Dose: 25 mg Documented by: TRAVIS Dextrose (Dextrose 50 % 25 Gm/50 Ml Vial) 25 gm IVPUSH Q15M PRN; Protocol PRN Reason: per Hypoglycemia Standing Ord. Last Admin: 06/07/21 07:15 Dose: 25 gm Documented by: CY Glucose (Glucose Gel 15 Gm Gel..Gram.) 15 gm PO Q15M PRN; Protocol PRN Reason: per Hypoglycemia Standing Ord. Insulin Glargine (Insulin Glargine,Hum.Rec.Anlog 100 Unit/Ml 10 Ml Vial) 6 unit SUBCUT BEDTIME [facility] Last Admin: 06/10/21 21:28 Dose: 6 unit Documented by: CASH Insulin Human Lispro (Insulin Lispro 100 Unit/Ml 3 Ml Vial) 0 unit SUBCUT QIDACHS [facility]; Protocol Last Admin: 06/11/21 08:20 Dose: 2 unit Documented by: TRAVIS Lorazepam (Lorazepam 2 Mg/Ml Vial) 0.5 mg IVPUSH ONCE PRN PRN Reason: anxiety Losartan Potassium (Losartan Potassium 50 Mg Tablet) 50 mg PO DAILY [facility]; Protocol Last Admin: 06/11/21 08:20 Dose: 50 mg Documented by: TRAVIS Melatonin (Melatonin 3 Mg Tablet) 6 mg PO BEDTIME PRN PRN Reason: Insomnia Multivitamins/Vitamin C (Multivitamin Tablet) 1 tab PO DAILY [facility] Last Admin: 06/11/21 08:20 Dose: 1 tab Documented by: RTAVIS Pharmacy Consult (Consult Rx Perform Med Rec) 1 each MISCELLANE ONCE PRN PRN Reason: Consult order Senna (Sennosides 8.6 Mg Tablet) 17.2 mg PO BEDTIME PRN PRN Reason: Constipation Sevelamer Carbonate (Sevelamer Carbonate Tablet 800 Mg Tablet) 800 mg PO TIDWM [facility] Last Admin: 06/11/21 08:20 Dose: 800 mg Documented by: TRAVIS Sodium Chloride (0.9 % Sodium Chloride Flush 3 Ml Syringe) 3 ml IVFLUSH QSHIFT [facility] Last Admin: 06/11/21 08:20 Dose: 3 ml Documented by: TRAVIS Ursodiol (Ursodiol 300 Mg Capsule) 300 mg PO BID [facility] Last Admin: 06/11/21 08:21 Dose: 300 mg Documented by: TRAVIS <UMA Miller - Last Filed: 06/11/21 11:04> Labs CBC & Chem 7: : 06/11/21 03:07 06/11/21 13:47 <UMA Miller - Last Filed: 06/11/21 11:04> Labs: Laboratory Results - last 24 hr 06/10/21 06/10/21 06/10/21 11:04 14:47 16:05 MCV MCH MCHC RDW Plt Count MPV Absolute Nucleated RBC Nucleated RBC % (auto) PT 13.6 H INR 1.2 H APTT 37.0 Anion Gap Estim Creat Clear Calc Estimated GFR POC Glucose 145 H 221 H Random Glucose Calcium 06/10/21 06/11/21 06/11/21 20:10 03:07 03:07 MCV 93.7 MCH 29.5 MCHC 31.5 RDW 17.1 H Plt Count 158 L MPV 11.9 Absolute Nucleated RBC 0.000 Nucleated RBC % (auto) 0.0 PT INR APTT Anion Gap 18 Estim Creat Clear Calc 8.3 Estimated GFR 8 POC Glucose 160 H Random Glucose 209 H Calcium 8.2 L 06/11/21 07:24 MCV MCH MCHC RDW Plt Count MPV Absolute Nucleated RBC Nucleated RBC % (auto) PT INR APTT Anion Gap Estim Creat Clear Calc Estimated GFR POC Glucose 164 H Random Glucose Calcium <UMA Miller Last Filed: 06/11/21 11:04> Assessment and Plan (1) PAD (peripheral artery disease): Status: Acute <UMA Miller Last Filed: 06/11/21 11:04> (2) Diabetic foot infection: Status: Acute <UMA Miller Last Filed: 06/11/21 11:04> Plan 75-year-old old male with a past medical history of hypertension, hyperlipidemia, diabetes, diabetic foot infection, CAD status post CABG, ESRD on hemodialysis; anemia of chronic disease, presented to the hospital with chief complaint of non healing diabetic foot infection.? Nonhealing left diabetic foot ulcer with gangrene/cellulitis POD #3 s/p left BKA 4/7 initially treated with vano/zosyn; d/c 06/09 as source of infection has been removed, no further need for abx leukocytosis resolved continue pain medications /antiemetics/dressing care per Dr. Swan, he plans to change dressing on Saturday and then discharged to rehab. diabetes: resumed on lower dose of Lantus, 6U (take 10 bid at baseline) continue insulin sliding scale, diabetic diet and monitor blood sugars closely acute on chrnoic anemia of chronic disease secondary to acute blood loss from surgery pt asymptomatic, will hold off on blood transfusion H/H stable History of ESRD: MWF continue hemodialysis, continue home medication sevelamer, and Bumex Nephrology following Hyperkalemia should improve with HD will repeat this afternoon, if still high will consider [facility] follow BMP hypertension on multiple antihypertensive, Coreg, Cozaar, Bumex and Norvasc, dose of losartan increased to 50 mg on 06/07 due to elevated blood pressures overall bp has improved. trending up today, but should improve with HD tomorrow follow BP Hyperlipidemia: Continue Lipitor coronary artery disease seen by cardiology for preop eval, underwent nuclear stress test prior to surgery showing no major large territory ischemia no chest pain continue aspirin, Lipitor and Coreg. DVT prophylaxis:? Subcu heparin Code status: Full code Attending: dr. Koch Need for inpatient: status post left BKA POD #3 today will require dressing change by vascular surgeon on Saturday DISPO: SNF for rehab <UMA Miller - Last Filed: 06/11/21 11:04> 75-year-old old male with a past medical history of hypertension, hyperlipidemia, diabetes, diabetic foot infection, CAD status post CABG, ESRD on hemodialysis; anemia of chronic disease, presented to the hospital with chief complaint of non healing diabetic foot infection.? Nonhealing left diabetic foot ulcer with gangrene/cellulitis POD #3 s/p left BKA 4/7 initially treated with vano/zosyn; d/c 06/09 as source of infection has been removed, no further need for abx leukocytosis resolved continue pain medications /antiemetics/dressing care per Dr. Swan, he plans to change dressing on Saturday and then discharged to rehab. diabetes: resumed on lower dose of Lantus, 6U (take 10 bid at baseline) continue insulin sliding scale, diabetic diet and monitor blood sugars closely acute on chrnoic anemia of chronic disease secondary to acute blood loss from surgery pt asymptomatic, will hold off on blood transfusion H/H stable History of ESRD: MWF continue hemodialysis, continue home medication sevelamer, and Bumex Nephrology following Hyperkalemia should improve with HD will repeat this afternoon, if still high will consider [facility] follow BMP hypertension on multiple antihypertensive, Coreg, Cozaar, Bumex and Norvasc, dose of losartan increased to 50 mg on 06/07 due to elevated blood pressures overall bp has improved. trending up today, but should improve with HD tomorrow follow BP Hyperlipidemia: Continue Lipitor coronary artery disease seen by cardiology for preop eval, underwent nuclear stress test prior to surgery showing no major large territory ischemia no chest pain continue aspirin, Lipitor and Coreg. DVT prophylaxis:? Subcu heparin Code status: Full code Attending: dr. Koch Chart reviewed; patient examined. Agree with history physical and plan as outlined by Ms. Bean Need for inpatient: status post left BKA POD #3 today will require dressing change by vascular surgeon on Saturday DISPO: SNF for rehab <Baljit Koch DO - Last Filed: 06/11/21 15:10> Quality Stroke Does the patient have a stroke diagnosis?: No <UMA Miller - Last Filed: 06/11/21 11:04> VTE Prior VTE?: No <UMA Miller - Last Filed: 06/11/21 11:04> VTE Risk Level:: Medical - moderate - high <UAM Miller Last Filed: 06/11/21 11:04> VTE Device Contraindication: Treatment Not Indicated <UMA Miller Last Filed: 06/11/21 11:04> VTE Drug Contraindication: N/A - Med Ordered <UMA Miller Last Filed: 06/11/21 11:04>
[2021-06-11 11:28] LABS: Glucose, Whole Blood 145 mg/dL (60-115)
[2021-06-11 14:30] LABS: Potassium 6.2 mmol/L (3.3-5.1)
[2021-06-11] MEDS: Acetaminophen 325 MG TABLET 650 MG PO (14:37)
[2021-06-11] MEDS: Sodium Zirconium Cyclosilicate 10 GM POWD.PACK PO (15:37)
--- NOTE | 2021-06-11 16:01 | P.PNNP_ITS ---
Subjective Subjective Date of Service: 06/11/21 Principal diagnosis: preop cardiovascular exam, CABG hx Interval history: Seen and examined this morning No overnight events Physical Exam Vital Signs: Vital Signs: Last Vital Signs Temp 98.0 F 06/11/21 15:53 Pulse 50 06/11/21 15:53 Resp 18 06/11/21 15:53 BP 166/71 H 06/11/21 15:53 Pulse Ox 98 06/11/21 15:53 BMI result Body Mass Index 27.0 Const: Other: General? awake alert,in no acute distress. HEENT? anicteric sclerae Neck no JVD. CVS? regular rate rhythm, Respiratory lungs clear to auscultation, no respiratory distress, no wheeze, no rhonchi. Gastrointestinal abdomen soft, nontender, bowel sounds audible Extremities? left BKA dressing in place Neuro nonfocal, speech clear Skin no rash General: cooperative, healthy appearing, comfortable, no acute distress, alert, awake, ill appearing chronically and tired appearing; No confusion Nutritional Appearance: average body habitus Orientation/consciousness: oriented to person, oriented to place, oriented to time, patient oriented x3 and No confusion Limitations: language barrier HEENT: Head: Yes normal to inspection, Yes No palpable skull fracture present, Yes normocephalic and Yes atraumatic Ears: hearing grossly normal bilaterally General nose exam: Normal external nose present Mouth: Normal oral and palatal mucosa present and moist mucous membranes Throat: Yes posterior oropharynx normal Eyes: General: appearance normal, both eyes and all related structures Pupils: Equal, round and reactive pupils present EOM: EOMs intact bilaterally Neck: Neck: Yes normal visual inspection, Yes full ROM, Yes no lymphadenopathy, Yes no meningeal signs, Yes trachea midline, Yes supple and Yes no JVD Carotids: no bruits Chest: Chest palpation & inspection: normal inspection of the chest Resp: Other: poor inspiratory effort Effort & Inspection: normal respiratory effort, able to speak in complete sentences and not labored Auscultation: clear to auscultation bilaterally, no crackles, no rales, no rhonchi, no wheezes and diminished lung sounds Cardio: Jugular venous distension: no JVD Palpation: normal PMI Rate: regular rate Rhythm: regular rhythm Heart sounds: S1 normal heart sound present, S2 normal heart sound present, no click, no gallops and no murmurs Bruits: no carotid bruits Peripheral pulses: dorsalis pedis present ( Bilateral DP signals) bilateral ( DP signals) GI: Inspection: Yes normal to inspection and No distended Palpation (GI): Soft to palpation, nontender, no guarding and not rigid Percussion: Yes normal to percussion Auscultation: normal bowel sounds : General: Yes no CVA tenderness Back/Spine/Pelvis: Back: no CVA tenderness Skin: Other: cellulitis and necrosis of left lateral foot inclusive of 4th and 5th digits. General skin exam: no rashes or lesions noted Wounds: amputation site ( Dressing reinforce some serosanguineous drainage) and wounds noted (Left click foot gangrene 4th and 5th digits extending on back) Hair: normal Neuro: General: oriented to person, oriented to place, oriented to time, patient oriented x3, moves all extremities, no meningeal signs, no focal motor d eficits, CN's II-XI intact bilaterally and No confusion Cranial nerves: Yes CN's II-XII intact bilaterally, Yes Equal, round and reactive pupils present and Yes Normal hearing present Cognition (Neuro): normal cognition Motor exam (neuro): 5/5 motor strength present throughout Extrem: Other: s/p left BKA; stump wrapped in clean, dry dressing/meena bandage General: Yes normal to inspection, Yes full ROM, Yes no clubbing, cyanosis or edema, No clubbing, No cyanosis and No edema Left lower extremity: normal capillary refill, edema and foot Details: abnormal to inspection Details: erythematous, tenderness Location: of the dorsal foot, toes with normal ROM, warmth and vascular exam Details: normal capillary refill; Negative for no crepitus Psych: Appearance: grossly normal and well kempt Mental Status: mental status grossly normal Speech and movement: Normal speech and movement present Affect: normal affect Attitude: cooperative Thought process: Normal thought process present Objective Data Labs CBC & Chem 7: 06/11/21 03:07 06/11/21 13:47 Labs: Laboratory Results - last 24 hr 06/10/21 06/10/21 06/11/21 16:05 20:10 03:07 WBC 7.6 RBC 2.71 L Hgb 8.0 L Hct 25.4 L MCV 93.7 MCH 29.5 MCHC 31.5 RDW 17.1 H Plt Count 158 L MPV 11.9 Absolute Nucleated RBC 0.000 Nucleated RBC % (auto) 0.0 Sodium Potassium Chloride Carbon Dioxide Anion Gap BUN Creatinine Estim Creat Clear Calc Estimated GFR POC Glucose 221 H 160 H Random Glucose Calcium 06/11/21 06/11/21 06/11/21 03:07 07:24 11:17 WBC RBC Hgb Hct MCV MCH MCHC RDW Plt Count MPV Absolute Nucleated RBC Nucleated RBC % (auto) Sodium 130 L Potassium 5.8 H D Chloride 99 Carbon Dioxide 19 L Anion Gap 18 BUN 66 H D Creatinine 6.77 H* Estim Creat Clear Calc 8.3 Estimated GFR 8 POC Glucose 164 H 145 H Random Glucose 209 H Calcium 8.2 L 06/11/21 13:47 WBC RBC Hgb Hct MCV MCH MCHC RDW Plt Count MPV Absolute Nucleated RBC Nucleated RBC % (auto) Sodium Potassium 6.2 H* Chloride Carbon Dioxide Anion Gap BUN Creatinine Estim Creat Clear Calc Estimated GFR POC Glucose Random Glucose Calcium Microbiology Microbiology Results: Microbiology 06/01/21 18:24 Blood - Venous Blood Culture - Final No growth after 5 days. 06/01/21 18:24 Blood - Venous Blood Culture - Final No growth after 5 days. 06/01/21 18:24 Foot Left Gram Stain - Final 06/01/21 18:24 Foot Left Routine Culture - Final Procedures Date of Service Date of Service: 06/10/21 Assessment & Plan Assessment and plan (1) End stage renal disease: Status: Acute Assessment and Plan: Pt seen on Saturday Comfortable and no urgent need for dialysis Plan for dialysis again on Saturday Plan 75-year-old old male with a past medical history of hypertension, hyperlipidemia, diabetes, diabetic foot infection, CAD status post CABG, ESRD on hemodialysis; anemia of chronic disease, presented to the hospital with chief complaint of non healing diabetic foot infection.? Nonhealing left diabetic foot ulcer with gangrene/cellulitis POD #3 s/p left BKA 4/ initially treated with vano/zosyn; d/c 06/09 as source of infection has been removed, no further need for abx leukocytosis resolved continue pain medications /antiemetics/dressing care per Dr. Swan, he plans to change dressing on Saturday and then discharged to rehab. diabetes: resumed on lower dose of Lantus, 6U (take 10 bid at baseline) continue insulin sliding scale, diabetic diet and monitor blood sugars closely Time Spent With Patient Time: Total time spent is greater than 50% in coordination of care (as documented) at patient's floor/unit and/or counseling patient: Progress Note: Quality Stroke Does the patient have a stroke diagnosis?: No
--- NOTE | 2021-06-11 16:03 | P.PNNP_ITS ---
Subjective Subjective Date of Service: 09/01/21 Principal diagnosis: ESRD Interval history: Seen and examined this morning No overnight events Physical Exam Vital Signs: Vital Signs: Last Vital Signs Temp 98.0 F 06/11/21 15:53 Pulse 50 06/11/21 15:53 Resp 18 06/11/21 15:53 BP 166/71 H 06/11/21 15:53 Pulse Ox 98 06/11/21 15:53 BMI result Body Mass Index 27.0 Const: Other: General? awake alert,in no acute distress. HEENT? anicteric sclerae Neck no JVD. CVS? regular rate rhythm, Respiratory lungs clear to auscultation, no respiratory distress, no wheeze, no rhonchi. Gastrointestinal abdomen soft, nontender, bowel sounds audible Extremities? left BKA dressing in place Neuro nonfocal, speech clear Skin no rash General: cooperative, healthy appearing, comfortable, no acute distress, alert, awake, ill appearing chronically and tired appearing; No confusion Nutritional Appearance: average body habitus Orientation/consciousness: oriented to person, oriented to place, oriented to time, patient oriented x3 and No confusion Limitations: language barrier HEENT: Head: Yes normal to inspection, Yes No palpable skull fracture present, Yes normocephalic and Yes atraumatic Ears: hearing grossly normal bilaterally General nose exam: Normal external nose present Mouth: Normal oral and palatal mucosa present and moist mucous membranes Throat: Yes posterior oropharynx normal Eyes: General: appearance normal, both eyes and all related structures Pupils: Equal, round and reactive pupils present EOM: EOMs intact bilaterally Neck: Neck: Yes normal visual inspection, Yes full ROM, Yes no lymphadenopathy, Yes no meningeal signs, Yes trachea midline, Yes supple and Yes no JVD Carotids: no bruits Chest: Chest palpation & inspection: normal inspection of the chest Resp: Other: poor inspiratory effort Effort & Inspection: normal respiratory effort, able to speak in complete sentences and not labored Auscultation: clear to auscultation bilaterally, no crackles, no rales, no rhonchi, no wheezes and dim inished lung sounds Cardio: Jugular venous distension: no JVD Palpation: normal PMI Rate: re gular rate Rhythm: regular rhythm Heart sounds: S1 normal heart sound present, S2 normal heart sound present, no click, no gallops and no murmurs Bruits: no carotid bruits Peripheral pulses: dorsalis pedis present ( Bilateral DP signals) bilateral ( DP signals) GI: Inspection: Yes normal to inspection and No distended Palpation (GI): Soft to palpation, nontender, no guarding and not rigid Percussion: Yes normal to percussion Auscultation: normal bowel sounds : General: Yes no CVA tenderness Back/Spine/Pelvis: Back: no CVA tenderness Skin: Other: cellulitis and necrosis of left lateral foot inclusive of 4th and 5th digits. General skin exam: no rashes or lesions noted Wounds: amputation site ( Dressing reinforce some serosanguineous drainage) and wounds noted (Left click foot gangrene 4th and 5th digits extending on back) Hair: normal Neuro: General: oriented to person, oriented to place, oriented to time, patient oriented x3, moves all extremities, no meningeal signs, no focal motor deficits, CN's II-XI intact bilaterally and No confusion Cranial nerves: Yes CN's II-XII intact bilaterally, Yes Equal, round and reactive pupils present and Yes Normal hearing present Cognition (Neuro): normal cognition Motor exam (neuro): 5/5 motor strength present throughout Extrem: Other: s/p left BKA; stump wrapped in clean, dry dressing/meena bandage General: Yes normal to inspection, Yes full ROM, Yes no clubbing, cyanosis or edema, No c lubbing, No cyanosis and No edema Left lower extremity: normal capillary refill, edema and foot Details: abnormal to inspection Details: erythematous, tenderness Location: of the dorsal foot, toes with normal ROM, warmth and vascular exam Details: normal capillary refill; no crepitus Psych: Appearance: grossly normal and well kempt Mental Status: mental status grossly normal Speech and movement: Normal speech and movement present Affect: normal affect Attitude: cooperative Thought process: Normal thought process present Objective Data Labs CBC & Chem 7: 06/14/21 11:42 06/13/21 06:09 Labs: Laboratory Results - last 24 hr 06/10/21 06/10/21 06/11/21 16:05 20:10 03:07 WBC 7.6 RBC 2.71 L Hgb 8.0 L Hct 25.4 L MCV 93.7 MCH 29.5 MCHC 31.5 RDW 17.1 H Plt Count 158 L MPV 11.9 Absolute Nucleated RBC 0.000 Nucleated RBC % (auto) 0.0 Sodium Potassium Chloride Carbon Dioxide Anion Gap BUN Creatinine Estim Creat Clear Calc Estimated GFR POC Glucose 221 H 160 H Random Glucose Calcium 06/11/21 06/11/21 06/11/21 03:07 07:24 11:17 WBC RBC Hgb Hct MCV MCH MCHC RDW Plt Count MPV Absolute Nucleated RBC Nucleated RBC % (auto) Sodium 130 L Potassium 5.8 H D Chloride 99 Carbon Dioxide 19 L Anion Gap 18 BUN 66 H D Creatinine 6.77 H* Estim Creat Clear Calc 8.3 Estimated GFR 8 POC Glucose 164 H 145 H Random Glucose 209 H Calcium 8.2 L 06/11/21 13:47 WBC RBC Hgb Hct MCV MCH MCHC RDW Plt Count MPV Absolute Nucleated RBC Nucleated RBC % (auto) Sodium Potassium 6.2 H* Chloride Carbon Dioxide Anion Gap BUN Creatinine Estim Creat Clear Calc Estimated GFR POC Glucose Random Glucose Calcium Microbiology Microbiology Results: Microbiology 06/01/21 18:24 Blood - Venous Blood Culture - Final No growth after 5 days. 06/01/21 18:24 Blood - Venous Blood Culture - Final No growth after 5 days. 06/01/21 18:24 Foot Left Gram Stain - Final 06/01/21 18:24 Foot Left Routine Culture - Final Procedures Date of Service Date of Service: 06/11/21 Assessment & Plan Assessment and plan (1) End stage renal disease: Assessment and Plan: Pt seen on Saturday Comfortable and no urgent need for dialysis Plan for dialysis again on Saturday (2) End-stage renal disease on hemodialysis: Status: Acute Assessment and Plan: Jean-Pierre Calderón is a 75-year-old gentleman with past medical history of HTN, HLD, DM2, Diabetic foot infections, CAD s/p CABG, ESRD HD MWF, Nephrogenic anemia and secondary hyperparathyroidism who presented to hospital with diabetic foot infection who is S/P BKA 1. Diabetic left foot? nonhealing ulcer with gangrene/ cellulitis dorsum of foot- S/P BKA 2. ESRD 3. Nephrogenic Anemia 4. Secondary Hyperparathyroidism 5. Hypertension 6. Hyperkalemia Plan: - HD per MWF schedule - protect AVF; Renal Diet - Calcitriol 0.5mcg MWF - EPO 20,000u TTS. - sevelamer 800mg TID - Could increase losartan to 100 mg if BP remains high - Check CK if K remains high Shall arrange HD F/U when D/Leo Plan 75-year-old old male with a past medical history of hypertension, hyperlipidemia, diabetes, diabetic foot infection, CAD status post CABG, ESRD on hemodialysis; anemia of chronic disease, presented to the hospital with chief complaint of non healing diabetic foot infection.? Nonhealing left diabetic foot ulcer with gangrene/cellulitis POD #3 s/p left BKA 4 initially treated with vano/zosyn; d/c 06/09 as source of infection has been removed, no further need for abx leukocytosis resolved continue pain medications /antiemetics/dressing care per Dr. Swan, he plans to change dressing on Saturday and then discharged to rehab. diabetes: resumed on lower dose of Lantus, 6U (take 10 bid at baseline) continue insulin sliding scale, diabetic diet and monitor blood sugars closely Time Spent With Patient Time: Total time spent is greater than 50% in coordination of care (as documented) at patient's floor/unit and/or counseling patient: Progress Note: Quality Stroke Does the patient have a stroke diagnosis?: No
[2021-06-11 16:08] LABS: Glucose, Whole Blood 256 mg/dL (60-115)
[2021-06-11] MEDS: oxyCODONE HCl Immed Release 5 MG TABLET PO ×2 (16:38→23:32)
[2021-06-11 20:59] LABS: Glucose, Whole Blood 187 mg/dL (60-115)
[2021-06-11] MEDS: Atorvastatin Calcium 40 MG TABLET PO (21:04)
[2021-06-11] MEDS: amLODIPine Besylate 5 MG TABLET PO (21:04)
[2021-06-11] MEDS: Insulin Glargine,Hum.rec.anlog 100 UNIT/ML 10 ML VIAL 6 UNIT SUBCUT (21:10)
[2021-06-12 04:00] VITALS: BP 124/64; PULSE 52; RESP 20; TEMP 37.1; O2SAT 97
[2021-06-12 06:26] LABS: Anion Gap 20 (12-20); Blood Urea Nitrogen 87 mg/dL (9-16); Calcium 8.6 mg/dL (8.4-10.2); Carbon Dioxide 20 mmol/L (22-29); Chloride 97 mmol/L (96-108); Creatinine Clr Calc Pharmacy 6.6; Estimated Glomerular Filt Rate 6; Glucose Random 174 mg/dL (60-115); Potassium 6.2 mmol/L (3.3-5.1); Sodium 131 mmol/L (135-145)
[2021-06-12 07:04] VITALS: BP 135/67; PULSE 50; RESP 17; TEMP 36.4; O2SAT 96
[2021-06-12 07:56] LABS: Glucose, Whole Blood 153 mg/dL (60-115)
[2021-06-12] MEDS: Losartan Potassium 50 MG TABLET PO (08:07)
[2021-06-12] MEDS: Multivitamin TABLET 1 TAB PO (08:07)
[2021-06-12] MEDS: amLODIPine Besylate 2.5 MG TABLET PO (08:07)
[2021-06-12] MEDS: Aspirin Enteric Coated 81 MG TABLET.DR PO (08:07)
[2021-06-12] MEDS: Sevelamer Carbonate Tablet 800 MG TABLET PO ×3 (08:07→17:30)
[2021-06-12] MEDS: Bumetanide 1 MG TABLET PO (08:08)
[2021-06-12] MEDS: Insulin Lispro 100 UNIT/ML 3 ML VIAL SUBCUT ×3 (08:08→21:40)
[2021-06-12] MEDS: carvediloL 25 MG TABLET PO ×2 (08:08→21:40)
[2021-06-12] MEDS: 0.9 % Sodium Chloride Flush 3 ML SYRINGE IVFLUSH ×3 (08:09→21:46)
[2021-06-12] MEDS: UrsodioL 300 MG CAPSULE PO ×2 (08:09→21:38)
--- NOTE | 2021-06-12 08:53 | HO.VASCPN ---
Subjective Subjective Date of Service: 06/12/21 Patient reports: no new complaints and feels better Interval history: Patient is status post BKA. He reports he is feeling significantly better. Pain is better controlled. Throughout the weekend there was significant bleeding throughout the dressing. This was reinforced. It appears to have stabilized overnight. He now presents for routine follow-up. Physical Exam Vital Signs: Vital Signs: Last Vital Signs Temp 97.5 F 06/12/21 07:04 Pulse 50 06/12/21 07:04 Resp 17 06/12/21 07:04 BP 135/67 06/12/21 07:04 Pulse Ox 96 06/12/21 07:04 BMI result Body Mass Index 27.0 Const: General: cooperative, healthy appearing and no acute distress Orientation/consciousness: oriented to person, oriented to place and oriented to time HEENT: Head: Yes normal to inspection Neck: Carotids: no bruits Chest: Chest palpation & inspection: normal inspection of the chest Resp: Effort & Inspection: normal respiratory effort and able to speak in complete sentences Auscultation: clear to auscultation bilaterally Cardio: Rate: regular rate Heart sounds: S1 normal heart sound present and S2 normal heart sound present GI: Inspection: Yes normal to inspection Skin: Other: Stump dressing clean dry intact - this was changed. General skin exam: no rashes or lesions noted Wounds: no wounds Neuro: General: oriented to person, oriented to place, oriented to time and CN's II-XI intact bilaterally Extrem: General: Yes normal to inspection, Yes full ROM and Yes no clubbing, cyanosis or edema Psych: Appearance: grossly normal and well kempt Speech and movement: Normal speech and movement present Affect: normal affect Progress Note: A&P Assessment and plan (1) Status post below-knee amputation: Status: Acute Assessment and Plan: In short patient is doing well post below-knee amputation. He will require local dressings with Xeroform and Kerlix wrap to be changed daily. Stable from my perspective for discharge for rehab facility. He can follow up with me in approximately 2 weeks time for suture and staple removal. Thank you for allowing us to assist in his care. Fall Risk Details Current Medications: Current Medications Acetaminophen (Acetaminophen 325 Mg Tablet) 650 mg PO Q6H PRN PRN Reason: Pain, Mild (Pain Scale 1-3) Last Admin: 06/11/21 14:37 Dose: 650 mg Documented by: Amlodipine Besylate (Amlodipine Besylate 2.5 Mg Tablet) 2.5 mg PO DAILY [facility]; Protocol Last Admin: 06/12/21 08:07 Dose: 2.5 mg Documented by: Amlodipine Besylate (Amlodipine Besylate 5 Mg Tablet) 5 mg PO BEDTIME [facility]; Protocol Last Admin: 06/11/21 21:04 Dose: 5 mg Documented by: Aspirin (Aspirin Enteric Coated 81 Mg Tablet.) 81 mg PO DAILY [facility] Last Admin: 06/12/21 08:07 Dose: 81 mg Documented by: Atorvastatin Calcium (Atorvastatin Calcium 40 Mg Tablet) 40 mg PO BEDTIME [facility] Last Admin: 06/11/21 21:04 Dose: 40 mg Documented by: Bumetanide (Bumetanide 1 Mg Tablet) 1 mg PO DAILY [facility]; Protocol Last Admin: 06/12/21 08:08 Dose: 1 mg Documented by: Calcitriol (Calcitriol 0.25 Mcg Capsule) 0.5 mcg PO MoWeFr [facility] Last Admin: 06/09/21 15:11 Dose: 0.5 mcg Documented by: Carvedilol (Carvedilol 25 Mg Tablet) 25 mg PO BID [facility]; Protocol Last Admin: 06/12/21 08:08 Dose: 25 mg Documented by: Dextrose (Dextrose 50 % 25 Gm/50 Ml Vial) 25 gm IVPUSH Q15M PRN; Protocol PRN Reason: per Hypoglycemia Standing Ord. Last Admin: 06/07/21 07:15 Dose: 25 gm Documented by: Glucose (Glucose Gel 15 Gm Gel..Gram.) 15 gm PO Q15M PRN; Protocol PRN Reason: per Hypoglycemia Standing Ord. Insulin Glargine (Insulin Glargine,Hum.Rec.Anlog 100 Unit/Ml 10 Ml Vial) 6 unit SUBCUT BEDTIME [facility] Last Admin: 06/11/21 21:10 Dose: 6 unit Documented by: Insulin Human Lispro (Insulin Lispro 100 Unit/Ml 3 Ml Vial) 0 unit SUBCUT QIDACHS [facility]; Protocol Last Admin: 06/12/21 08:08 Dose: 2 unit Documented by: Lorazepam (Lorazepam 2 Mg/Ml Vial) 0.5 mg IVPUSH ONCE PRN PRN Reason: anxiety Losartan Potassium (Losartan Potassium 50 Mg Tablet) 50 mg PO DAILY [facility]; Protocol Last Admin: 06/12/21 08:07 Dose: 50 mg Documented by: Melatonin (Melatonin 3 Mg Tablet) 6 mg PO BEDTIME PRN PRN Reason: Insomnia Multivitamins/Vitamin C (Multivitamin Tablet) 1 tab PO DAILY [facility] Last Admin: 06/12/21 08:07 Dose: 1 tab Documented by: Oxycodone HCl (Oxycodone Hcl Immed Release 5 Mg Tablet) 5 mg PO Q6H PRN PRN Reason: Pain, Moderate (Pain Scale 4-6 Last Admin: 06/11/21 23:32 Dose: 5 mg Documented by: Pharmacy Consult (Consult Rx Perform Med Rec) 1 each MISCELLANE ONCE PRN PRN Reason: Consult order Senna (Sennosides 8.6 Mg Tablet) 17.2 mg PO BEDTIME PRN PRN Reason: Constipation Sevelamer Carbonate (Sevelamer Carbonate Tablet 800 Mg Tablet) 800 mg PO TIDWM [facility] Last Admin: 06/12/21 08:07 Dose: 800 mg Documented by: Sodium Chloride (0.9 % Sodium Chloride Flush 3 Ml Syringe) 3 ml IVFLUSH QSHIFT [facility] Last Admin: 06/12/21 08:09 Dose: 3 ml Documented by: Ursodiol (Ursodiol 300 Mg Capsule) 300 mg PO BID [facility] Last Admin: 06/12/21 08:09 Dose: 300 mg Documented by: Time Spent With Patient Time: Total time spent is greater than 50% in coordination of care (as documented) at patient's floor/unit and/or counseling patient: Procedures Date of Service Date of Service: 06/12/21 Quality Stroke Does the patient have a stroke diagnosis?: No VTE Prior VTE?: No VTE Risk Level:: Medical - moderate - high VTE Device Contraindication: Treatment Not Indicated VTE Drug Contraindication: N/A - Med Ordered
--- NOTE | 2021-06-12 10:50 | PM.PNNEP ---
Subjective Subjective Date of Service: 06/12/21 Principal diagnosis: ESRD Interval history: Seen and examined on HD this morning; D/W HD RN Physical Exam Vital Signs: Vital Signs: Last Vital Signs Temp 97.5 F 06/12/21 07:04 Pulse 50 06/12/21 07:04 Resp 17 06/12/21 07:04 BP 135/67 06/12/21 07:04 Pulse Ox 96 06/12/21 07:04 BMI result Body Mass Index 27.0 Const: General: no acute distress Orientation/consciousness: patient oriented x3 Eyes: EOM: EOMs intact bilaterally Neck: Carotids: normal carotid upstroke Resp: Auscultation: diminished lung sounds Cardio: Rate: regular rate GI: Palpation (GI): Soft to palpation Neuro: General: patient oriented x3 Objective Data Labs CBC & Chem 7: 06/11/21 03:07 06/12/21 05:17 Labs: Laboratory Results - last 24 hr 06/11/21 06/11/21 06/11/21 11:17 13:47 15:56 Sodium Potassium 6.2 H* Chloride Carbon Dioxide Anion Gap BUN Creatinine Estim Creat Clear Calc Estimated GFR POC Glucose 145 H 256 H Random Glucose Calcium 06/11/21 06/12/21 06/12/21 20:43 05:17 07:08 Sodium 131 L Potassium 6.2 H* Chloride 97 Carbon Dioxide 20 L Anion Gap 20 BUN 87 H D Creatinine 8.46 H* Estim Creat Clear Calc 6.6 Estimated GFR 6 POC Glucose 187 H 153 H Random Glucose 174 H Calcium 8.6 Microbiology Microbiology Results: Microbiology 06/01/21 18:24 Blood - Venous Blood Culture - Final No growth after 5 days. 06/01/21 18:24 Blood - Venous Blood Culture - Final No growth after 5 days. 06/01/21 18:24 Foot Left Gram Stain - Final 06/01/21 18:24 Foot Left Routine Culture - Final Procedures Date of Service Date of Service: 06/12/21 Assessment & Plan Assessment and plan (1) End-stage renal disease on hemodialysis: Status: Acute Assessment and Plan: Jean-Pierre Calderón is a 75-year-old gentleman with past medical history of HTN, HLD, DM2, Diabetic foot infections, CAD s/p CABG, ESRD HD MWF, Nephrogenic anemia and secondary hyperparathyroidism who presented to hospital with diabetic foot infection who is S/P BKA 1. Diabetic left foot? nonhealing ulcer with gangrene/ cellulitis dorsum of foot- S/P BKA 2. ESRD 3. Nephrogenic Anemia 4. Secondary Hyperparathyroidism 5. Hypertension Plan: - HD per MWF schedule - Seen on HD this AM - protect AVF; Renal Diet - Calcitriol 0.5mcg MWF - EPO 20,000u weekly. - sevelamer 800mg TID - C/W current BP medications Shall arrange HD F/U when D/Leo Time Spent With Patient Time: Total time spent is greater than 50% in coordination of care (as documented) at patient's floor/unit and/or counseling patient: Progress Note: Quality Stroke Does the patient have a stroke diagnosis?: No
[2021-06-12] MEDS: oxyCODONE HCl Immed Release 5 MG TABLET PO ×2 (11:49→21:39)
[2021-06-12 12:49] LABS: Glucose, Whole Blood 84 mg/dL (60-115)
[2021-06-12 13:05] VITALS: BP 139/67; PULSE 60; RESP 18; TEMP 36.2; O2SAT 97
--- NOTE | 2021-06-12 14:27 | MHC.CM.PN ---
CM met with Patient and Daughter/New HCP/Margo ([phone])and several family members and assisted with completion of a HCP(Original and copies given to Daughter/Margo and a copy has been placed con the chart).Per discussion with Patient and family, LANA has asked Rigoberto Soria to initiate [facility] auth process.LANA will continue to follow for dc planning.
[2021-06-12] MEDS: calcitrioL 0.25 MCG CAPSULE 0.5 MCG PO (14:51)
[2021-06-12 15:29] VITALS: BP 165/69; PULSE 58; RESP 18; TEMP 36.7; O2SAT 97
--- NOTE | 2021-06-12 16:01 | P.PNIM_ITS ---
Subjective Subjective Date of Service: 06/12/21 Review of Systems Follow up Left BKA Bleeding from stump site Physical Exam Vital Signs: Vital Signs: Last Vital Signs Temp 98.1 F 06/12/21 15:29 Pulse 58 06/12/21 15:29 Resp 18 06/12/21 15:29 BP 165/69 H 06/12/21 15:29 Pulse Ox 97 06/12/21 15:29 BMI result Body Mass Index 27.0 Appearing in no acute distress lung sounds are clear to auscultation heart regular rate rhythm, clear S1, S2 positive bowel sounds, abdomen is soft, nontender neuro patient is alert x3, no focal deficits bleeding noted from amp site Objective Data Active Medications Acetaminophen (Acetaminophen 325 Mg Tablet) 650 mg PO Q6H PRN PRN Reason: Pain, Mild (Pain Scale 1-3) Last Admin: 06/11/21 14:37 Dose: 650 mg Documented by: TRAVIS Amlodipine Besylate (Amlodipine Besylate 2.5 Mg Tablet) 2.5 mg PO DAILY [facility]; Protocol Last Admin: 06/12/21 08:07 Dose: 2.5 mg Documented by: MARION Amlodipine Besylate (Amlodipine Besylate 5 Mg Tablet) 5 mg PO BEDTIME [facility]; Protocol Last Admin: 06/11/21 21:04 Dose: 5 mg Documented by: OUSMANE Aspirin (Aspirin Enteric Coated 81 Mg Tablet.) 81 mg PO DAILY [facility] Last Admin: 06/12/21 08:07 Dose: 81 mg Documented by: MARION Atorvastatin Calcium (Atorvastatin Calcium 40 Mg Tablet) 40 mg PO BEDTIME [facility] Last Admin: 06/11/21 21:04 Dose: 40 mg Documented by: OUSMANE Bumetanide (Bumetanide 1 Mg Tablet) 1 mg PO DAILY [facility]; Protocol Last Admin: 06/12/21 08:08 Dose: 1 mg Documented by: MARION Calcitriol (Calcitriol 0.25 Mcg Capsule) 0.5 mcg PO MoWeFr [facility] Last Admin: 06/12/21 14:51 Dose: 0.5 mcg Documented by: MARION Carvedilol (Carvedilol 25 Mg Tablet) 25 mg PO BID [facility]; Protocol Last Admin: 06/12/21 08:08 Dose: 25 mg Documented by: MARION Dextrose (Dextrose 50 % 25 Gm/50 Ml Vial) 25 gm IVPUSH Q15M PRN; Protocol PRN Reason: per Hypoglycemia Standing Ord. Last Admin: 06/07/21 07:15 Dose: 25 gm Documented by: CY Glucose (Glucose Gel 15 Gm Gel..Gram.) 15 gm PO Q15M PRN; Protocol PRN Reason: per Hypoglycemia Standing Ord. Insulin Glargine (Insulin Glargine,Hum.Rec.Anlog 100 Unit/Ml 10 Ml Vial) 6 unit SUBCUT BEDTIME [facility] Last Admin: 06/11/21 21:10 Dose: 6 unit Documented by: OUSMANE Insulin Human Lispro (Insulin Lispro 100 Unit/Ml 3 Ml Vial) 0 unit SUBCUT QIDACHS [facility]; Protocol Last Admin: 06/12/21 13:26 Dose: Not Given Documented by: MARION Non-Admin Reason: No Insulin Coverage Lorazepam (Lorazepam 2 Mg/Ml Vial) 0.5 mg IVPUSH ONCE PRN PRN Reason: anxiety Losartan Potassium (Losartan Potassium 50 Mg Tablet) 50 mg PO DAILY [facility]; Protocol Last Admin: 06/12/21 08:07 Dose: 50 mg Documented by: MARION Melatonin (Melatonin 3 Mg Tablet) 6 mg PO BEDTIME PRN PRN Reason: Insomnia Multivitamins/Vitamin C (Multivitamin Tablet) 1 tab PO DAILY [facility] Last Admin: 06/12/21 08:07 Dose: 1 tab Documented by: MARION Oxycodone HCl (Oxycodone Hcl Immed Release 5 Mg Tablet) 5 mg PO Q6H PRN PRN Reason: Pain, Moderate (Pain Scale 4-6 Last Admin: 06/12/21 11:49 Dose: 5 mg Documented by: MARION Pharmacy Consult (Consult Rx Perform Med Rec) 1 each MISCELLANE ONCE PRN PRN Reason: Consult order Senna (Sennosides 8.6 Mg Tablet) 17.2 mg PO BEDTIME PRN PRN Reason: Constipation Sevelamer Carbonate (Sevelamer Carbonate Tablet 800 Mg Tablet) 800 mg PO TIDWM [facility] Last Admin: 06/12/21 13:26 Dose: 800 mg Documented by: MARION Sodium Chloride (0.9 % Sodium Chloride Flush 3 Ml Syringe) 3 ml IVFLUSH QSHIFT [facility] Last Admin: 06/12/21 08:09 Dose: 3 ml Documented by: MARION Ursodiol (Ursodiol 300 Mg Capsule) 300 mg PO BID [facility] Last Admin: 06/12/21 08:09 Dose: 300 mg Documented by: MARION Labs CBC & Chem 7: 06/11/21 03:07 06/12/21 05:17 Labs: Laboratory Results - last 24 hr 06/11/21 06/11/21 06/12/21 15:56 20:43 05:17 Anion Gap 20 Estim Creat Clear Calc 6.6 Estimated GFR 6 POC Glucose 256 H 187 H Random Glucose 174 H Calcium 8.6 06/12/21 06/12/21 07:08 12:44 Anion Gap Estim Creat Clear Calc Estimated GFR POC Glucose 153 H 84 Random Glucose Calcium Assessment and Plan (1) PAD (peripheral artery disease): Status: Acute (2) Diabetic foot infection: Status: Acute Plan 75-year-old old male with a past medical history of hypertension, hyperlipidemia, diabetes, diabetic foot infection, CAD status post CABG, ESRD on hemodialysis; anemia of chronic disease, presented to the hospital with chief complaint of non healing diabetic foot infection.? 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 Swan diabetes resumed on lower dose of Lantus, 6U (take 10 bid at baseline) continue insulin sliding scale, diabetic diet and monitor blood sugars closely acute on chronic anemia secondary to acute blood loss from surgery pt asymptomatic, will hold off on blood transfusion H/H stable Hyponatremia stable follow History of ESRD: MWF continue hemodialysis, continue home medication sevelamer, and Bumex Nephrology following Hyperkalemia should improve with HD will repeat this afternoon, Ronni follow BMP Hypertension on multiple antihypertensive, Coreg, Cozaar, Bumex and Norvasc, dose of losartan increased to 50 mg on 06/07 due to elevated blood pressures overall bp has improved. trending up today, but should improve with HD tomorrow follow BP Hyperlipidemia Continue Lipitor coronary artery disease seen by cardiology for preop eval, underwent nuclear stress test prior to surgery showing no major large territory ischemia no chest pain continue aspirin, Lipitor and Coreg. DVT prophylaxis:? Subcu heparin Code status: Full code Attending: Dr. Howard Need for inpatient: status post left BKA, today will require dressing change by vascular surgeon on Saturday, still bleeding from stump site Quality Stroke Does the patient have a stroke diagnosis?: No VTE Prior VTE?: No VTE Risk Level:: Medical - moderate - high VTE Device Contraindication: Treatment Not Indicated VTE Drug Contraindication: N/A - Med Ordered
[2021-06-12 16:02] LABS: Glucose, Whole Blood 184 mg/dL (60-115)
--- NOTE | 2021-06-12 16:55 | PC.NURSE ---
Patient has bleeding in the BKA site. The dressings were soaked in blood. I changed dressing at 11:oo am and at 3:[address] Swan and UMA Chang. Dr Swan said he would contact the doctor, who then prescribed medications to the patient to stop the bleeding.
[2021-06-12] MEDS: Sodium Zirconium Cyclosilicate 5 GM POWD.PACK PO (17:36)
--- NOTE | 2021-06-12 19:12 | PC.NURSE ---
Patient received desmopressin acetate IV push for the bleeding in the BKA amputated site at 1500. Bleeding stopped, patient is now resting in the room, no pain reported.
[2021-06-12 19:31] VITALS: BP 152/72; PULSE 65; RESP 16; TEMP 36.8; O2SAT 97
[2021-06-12 21:16] LABS: Glucose, Whole Blood 246 mg/dL (60-115)
[2021-06-12] MEDS: amLODIPine Besylate 5 MG TABLET PO (21:38)
[2021-06-12] MEDS: Atorvastatin Calcium 40 MG TABLET PO (21:39)
[2021-06-12] MEDS: Insulin Glargine,Hum.rec.anlog 100 UNIT/ML 10 ML VIAL 6 UNIT SUBCUT (21:40)
[2021-06-12 23:25] VITALS: BP 114/39; PULSE 58; RESP 17; TEMP 36.4; O2SAT 95
[2021-06-13] VITALS (10 sets, daily range): BP systolic 111–156; BP diastolic 44–80; PULSE 51–57; RESP 14–20; TEMP 36.1–37; O2SAT 96–100
[2021-06-13 06:45] LABS: Anion Gap 17 (12-20); Blood Urea Nitrogen 53 mg/dL (9-16); Calcium 8.4 mg/dL (8.4-10.2); Carbon Dioxide 20 mmol/L (22-29); Chloride 99 mmol/L (96-108); Creatinine Clr Calc Pharmacy 9.2; Estimated Glomerular Filt Rate 9; Glucose Random 150 mg/dL (60-115); Sodium 130 mmol/L (135-145)
[2021-06-13 07:09] LABS: Potassium 6.1 mmol/L (3.3-5.1)
[2021-06-13] MEDS: Sevelamer Carbonate Tablet 800 MG TABLET PO ×3 (07:43→16:34)
[2021-06-13] MEDS: amLODIPine Besylate 2.5 MG TABLET PO (07:45)
[2021-06-13 07:47] LABS: Glucose, Whole Blood 159 mg/dL (60-115)
[2021-06-13] MEDS: Losartan Potassium 50 MG TABLET PO (07:51)
[2021-06-13] MEDS: carvediloL 25 MG TABLET PO (07:52)
[2021-06-13] MEDS: Aspirin Enteric Coated 81 MG TABLET.DR PO (07:53)
[2021-06-13] MEDS: Bumetanide 1 MG TABLET PO (07:53)
[2021-06-13] MEDS: Multivitamin TABLET 1 TAB PO (07:54)
[2021-06-13] MEDS: UrsodioL 300 MG CAPSULE PO ×2 (07:56→21:07)
[2021-06-13] MEDS: 0.9 % Sodium Chloride Flush 3 ML SYRINGE IVFLUSH ×2 (07:57→16:34)
[2021-06-13] MEDS: oxyCODONE HCl Immed Release 5 MG TABLET PO (08:03)
[2021-06-13] MEDS: Insulin Lispro 100 UNIT/ML 3 ML VIAL SUBCUT ×4 (08:04→21:04)
[2021-06-13 08:46] LABS: MANUAL DIFF FLAG NO
[2021-06-13 09:11] LABS: Basophils Percent Auto 0.4 % (0-2); Eosinophils Absolute Auto 0.4 X10*3/uL (0.0-0.4); Eosinophils Percent Auto 3.1 % (0-4); Imm Gran Abs Auto 0.05 X10*3/uL (0.00-0.03); Imm Gran Pct Auto 0.4 % (0.0-0.4); Lymphocytes Absolute Auto 0.9 X10*3/uL (1.2-4.9); Lymphocytes Percent Auto 7.8 % (20-40); Mean Corpuscular HGB Conc 31.8 g/dl (31.0-36.0); Mean Corpuscular Hemoglobin 30.2 pg (27.0-33.0); Mean Corpuscular Volume 94.8 fL (80.0-98.0); Mean Platelet Volume 12.4 fL (9.4-12.4); Monocytes Absolute Auto 0.6 X10*3/uL (0.1-1.2); Monocytes Percent Auto 5.5 % (2-11); Neutrophils Absolute Auto 9.5 x10*3/uL (2.0-8.3); Neutrophils Percent Auto 82.8 % (45-73); Platelet Count 178 X10*3/uL (160-400); Red Blood Count 2.32 X10*6/uL (4.60-5.80); Red Cell Distribution Width 17.8 % (11.0-16.0); White Blood Count 11.4 X10*3/uL (4.8-10.8)
[2021-06-13] MEDS: Sodium Zirconium Cyclosilicate 10 GM POWD.PACK PO (09:57)
--- NOTE | 2021-06-13 10:25 | P.PNIM_ITS ---
Subjective Subjective Date of Service: 06/13/21 Interval History: seen in f/u for peripheral vascular disease, s/p Left BKA Review of Systems Pain is controlled No fever Physical Exam Vital Signs: Vital Signs: Last Vital Signs Temp 97.5 F 06/13/21 07:10 Pulse 56 06/13/21 07:10 Resp 18 06/13/21 07:10 BP 136/65 06/13/21 07:10 Pulse Ox 98 06/13/21 07:10 BMI result Body Mass Index 27.0 Const: Other: General? awake alert,in no acute distress. HEENT? anicteric sclerae Neck no JVD. CVS? regular rate rhythm, Respiratory lungs clear to auscultation, no respiratory distress, no wheeze, no rhonchi. Gastrointestinal abdomen soft, nontender, bowel sounds audible Extremities? left BKA dressing in place Neuro nonfocal, speech clear Skin no rash Objective Data Active Medications Acetaminophen (Acetaminophen 325 Mg Tablet) 650 mg PO Q6H PRN PRN Reason: Pain, Mild (Pain Scale 1-3) Last Admin: 06/11/21 14:37 Dose: 650 mg Documented by: TRAVIS Amlodipine Besylate (Amlodipine Besylate 2.5 Mg Tablet) 2.5 mg PO DAILY [facility]; Protocol Last Admin: 06/13/21 07:45 Dose: 2.5 mg Documented by: LEANNE Comments: 136/65, apical 60 nicely regular Amlodipine Besylate (Amlodipine Besylate 5 Mg Tablet) 5 mg PO BEDTIME [facility]; Protocol Last Admin: 06/12/21 21:38 Dose: 5 mg Documented by: CY Aspirin (Aspirin Enteric Coated 81 Mg Tablet.) 81 mg PO DAILY [facility] Last Admin: 06/13/21 07:53 Dose: 81 mg Documented by: LEANNE Atorvastatin Calcium (Atorvastatin Calcium 40 Mg Tablet) 40 mg PO BEDTIME [facility] Last Admin: 06/12/21 21:39 Dose: 40 mg Documented by: CY Bumetanide (Bumetanide 1 Mg Tablet) 1 mg PO DAILY [facility]; Protocol Last Admin: 06/13/21 07:53 Dose: 1 mg Documented by: LEANNE Comments: 136/65 apical pulse60 Calcitriol (Calcitriol 0.25 Mcg Capsule) 0.5 mcg PO MoWeFr [facility] Last Admin: 06/12/21 14:51 Dose: 0.5 mcg Documented by: MARION Carvedilol (Carvedilol 25 Mg Tablet) 25 mg PO BID [facility]; Protocol Last Admin: 06/13/21 07:52 Dose: 25 mg Documented by: LEANNE Comments: 136/65 apical pulse 60 Dextrose (Dextrose 50 % 25 Gm/50 Ml Vial) 25 gm IVPUSH Q15M PRN; Protocol PRN Reason: per Hypoglycemia Standing Ord. Last Admin: 06/07/21 07:15 Dose: 25 gm Documented by: CY Glucose (Glucose Gel 15 Gm Gel..Gram.) 15 gm PO Q15M PRN; Protocol PRN Reason: per Hypoglycemia Standing Ord. Insulin Glargine (Insulin Glargine,Hum.Rec.Anlog 100 Unit/Ml 10 Ml Vial) 6 unit SUBCUT BEDTIME [facility] Last Admin: 06/12/21 21:40 Dose: 6 unit Documented by: CY Insulin Human Lispro (Insulin Lispro 100 Unit/Ml 3 Ml Vial) 0 unit SUBCUT QIDACHS [facility]; Protocol Last Admin: 06/13/21 08:04 Dose: 2 unit Documented by: LEANNE Comments: per POC glucose Lorazepam (Lorazepam 2 Mg/Ml Vial) 0.5 mg IVPUSH ONCE PRN PRN Reason: anxiety Losartan Potassium (Losartan Potassium 50 Mg Tablet) 50 mg PO DAILY [facility]; Protocol Last Admin: 06/13/21 07:51 Dose: 50 mg Documented by: LEANNE Comments: 136/65 pulse 60 Melatonin (Melatonin 3 Mg Tablet) 6 mg PO BEDTIME PRN PRN Reason: Insomnia Multivitamins/Vitamin C (Multivitamin Tablet) 1 tab PO DAILY [facility] Last Admin: 06/13/21 07:54 Dose: 1 tab Documented by: LEANNE Oxycodone HCl (Oxycodone Hcl Immed Release 5 Mg Tablet) 5 mg PO Q6H PRN PRN Reason: Pain, Moderate (Pain Scale 4-6 Last Admin: 06/13/21 08:03 Dose: 5 mg Documented by: LEANNE Pharmacy Consult (Consult Rx Perform Med Rec) 1 each MISCELLANE ONCE PRN PRN Reason: Consult order Senna (Sennosides 8.6 Mg Tablet) 17.2 mg PO BEDTIME PRN PRN Reason: Constipation Sevelamer Carbonate (Sevelamer Carbonate Tablet 800 Mg Tablet) 800 mg PO TIDWM [facility] Last Admin: 06/13/21 07:43 Dose: 800 mg Documented by: LEANNE Sodium Chloride (0.9 % Sodium Chloride Flush 3 Ml Syringe) 3 ml IVFLUSH QSHIFT [facility] Last Admin: 06/13/21 07:57 Dose: 3 ml Documented by: LEANNE Sodium Zirconium Cyclosilicate (Sodium Zirconium Cyclosilicate 10 Gm Powd.Pack) 10 gm PO DAILY [facility] Last Admin: 06/13/21 09:57 Dose: 10 gm Documented by: LEANNE Ursodiol (Ursodiol 300 Mg Capsule) 300 mg PO BID [facility] Last Admin: 06/13/21 07:56 Dose: 300 mg Documented by: LEANNE Labs CBC & Chem 7: 06/13/21 08:26 06/13/21 06:09 Labs: Laboratory Results - last 24 hr 06/12/21 06/12/21 06/12/21 12:44 15:59 21:12 MCV MCH MCHC RDW Plt Count MPV Immature Gran % (Auto) Neut % (Auto) Lymph % (Auto) [place] % (Auto) Eos % (Auto) Baso % (Auto) Lymph # (Auto) [place] # (Auto) Eos # (Auto) Baso # (Auto) Abs Immat Gran (auto) Absolute Neuts (auto) Absolute Nucleated RBC Nucleated RBC % (auto) Anion Gap Estim Creat Clear Calc Estimated GFR POC Glucose 84 184 H 246 H Random Glucose Calcium 06/13/21 06/13/21 06/13/21 06:09 07:08 08:26 MCV 94.8 MCH 30.2 MCHC 31.8 RDW 17.8 H Plt Count 178 MPV 12.4 Immature Gran % (Auto) 0.4 Neut % (Auto) 82.8 H Lymph % (Auto) 7.8 L [place] % (Auto) 5.5 Eos % (Auto) 3.1 Baso % (Auto) 0.4 Lymph # (Auto) 0.9 L [place] # (Auto) 0.6 Eos # (Auto) 0.4 Baso # (Auto) 0.0 Abs Immat Gran (auto) 0.05 H Absolute Neuts (auto) 9.5 H Absolute Nucleated RBC 0.000 Nucleated RBC % (auto) 0.0 Anion Gap 17 Estim Creat Clear Calc 9.2 Estimated GFR 9 POC Glucose 159 H Random Glucose 150 H Calcium 8.4 Assessment and Plan (1) PAD (peripheral artery disease): Status: Acute (2) Diabetic foot infection: Status: Acute Plan 75-year-old old male with a past medical history of hypertension, hyperlipidemia, diabetes, diabetic foot infection, CAD status post CABG, ESRD on hemodialysis; anemia of chronic disease, presented to the hospital with chief complaint of non healing diabetic foot infection.? 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 Swan Diabetes--acceptable control continue Lantus, SSI Acute on chronic anemia secondary to acute blood loss from surgery pt asymptomatic, will hold off on blood transfusion Hemoglobin is 7 today,tranfuse 1 unit Hyponatremia, chronic and table, 130 History of ESRD: MWF continue hemodialysis, continue home medication sevelamer, and Bumex Nephrology following Hyperkalemia--Ronni will repeat this afternoon, Ronni follow BMP Hypertension on multiple antihypertensive, Coreg, Cozaar, Bumex and Norvasc, dose of losartan increased to 50 mg on 06/07 due to elevated blood pressures overall bp has improved. trending up today, but should improve with HD tomorrow follow BP Hyperlipidemia Continue Lipitor coronary artery disease seen by cardiology for preop eval, underwent nuclear stress test prior to surgery showing no major large territory ischemia no chest pain continue aspirin, Lipitor and Coreg. DVT prophylaxis:? Subcu heparin Code status: Full code Att Need for inpatient: status post left BKA, ongoing post of care, and awaiting rehab placment, no bed today Quality Stroke Does the patient have a stroke diagnosis?: No VTE Prior VTE?: No VTE Risk Level:: Medical - moderate - high VTE Device Contraindication: Treatment Not Indicated VTE Drug Contraindication: N/A - Med Ordered
--- NOTE | 2021-06-13 10:44 | P.PNNP_ITS ---
Subjective Subjective Date of Service: 06/13/21 Principal diagnosis: ESRD Interval history: Events noted. All recent data reviewed. D/W hospitalist; K still on high side Physical Exam Vital Signs: Vital Signs: Last Vital Signs Temp 97.3 F 06/13/21 10:40 Pulse 51 06/13/21 10:40 Resp 18 06/13/21 10:40 BP 131/60 06/13/21 10:40 Pulse Ox 96 06/13/21 10:40 BMI result Body Mass Index 27.0 Const: General: no acute distress Orientation/consciousness: patient oriented x3 Eyes: EOM: EOMs intact bilaterally Neck: Neck: Yes supple Resp: Auscultation: diminished lung sounds Cardio: Rate: regular rate GI: Palpation (GI): Soft to palpation Neuro: General: patient oriented x3 Extrem: Other: BKA Objective Data Labs CBC & Chem 7: 06/13/21 08:26 06/13/21 06:09 Labs: Laboratory Results - last 24 hr 06/12/21 06/12/21 06/12/21 12:44 15:59 21:12 WBC RBC Hgb Hct MCV MCH MCHC RDW Plt Count MPV Immature Gran % (Auto) Neut % (Auto) Lymph % (Auto) [place] % (Auto) Eos % (Auto) Baso % (Auto) Lymph # (Auto) [place] # (Auto) Eos # (Auto) Baso # (Auto) Abs Immat Gran (auto) Absolute Neuts (auto) Absolute Nucleated RBC Nucleated RBC % (auto) Sodium Potassium Chloride Carbon Dioxide Anion Gap BUN Creatinine Estim Creat Clear Calc Estimated GFR POC Glucose 84 184 H 246 H Random Glucose Calcium Crossmatch 06/13/21 06/13/21 06/13/21 06:09 07:08 08:26 WBC 11.4 H RBC 2.32 L Hgb 7.0 L* Hct 22.0 L MCV 94.8 MCH 30.2 MCHC 31.8 RDW 17.8 H Plt Count 178 MPV 12.4 Immature Gran % (Auto) 0.4 Neut % (Auto) 82.8 H Lymph % (Auto) 7.8 L [place] % (Auto) 5.5 Eos % (Auto) 3.1 Baso % (Auto) 0.4 Lymph # (Auto) 0.9 L [place] # (Auto) 0.6 Eos # (Auto) 0.4 Baso # (Auto) 0.0 Abs Immat Gran (auto) 0.05 H Absolute Neuts (auto) 9.5 H Absolute Nucleated RBC 0.000 Nucleated RBC % (auto) 0.0 Sodium 130 L Potassium 6.1 H* Chloride 99 Carbon Dioxide 20 L Anion Gap 17 BUN 53 H Creatinine 6.12 H* Estim Creat Clear Calc 9.2 Estimated GFR 9 POC Glucose 159 H Random Glucose 150 H Calcium 8.4 Crossmatch 06/13/21 10:17 WBC RBC Hgb Hct MCV MCH MCHC RDW Plt Count MPV Immature Gran % (Auto) Neut % (Auto) Lymph % (Auto) [place] % (Auto) Eos % (Auto) Baso % (Auto) Lymph # (Auto) [place] # (Auto) Eos # (Auto) Baso # (Auto) Abs Immat Gran (auto) Absolute Neuts (auto) Absolute Nucleated RBC Nucleated RBC % (auto) Sodium Potassium Chloride Carbon Dioxide Anion Gap BUN Creatinine Estim Creat Clear Calc Estimated GFR POC Glucose Random Glucose Calcium Crossmatch See Detail Microbiology Microbiology Results: Microbiology 06/01/21 18:24 Blood - Venous Blood Culture - Final No growth after 5 days. 06/01/21 18:24 Blood - Venous Blood Culture - Final No growth after 5 days. 06/01/21 18:24 Foot Left Gram Stain - Final 06/01/21 18:24 Foot Left Routine Culture - Final Procedures Date of Service Date of Service: 06/13/21 Assessment & Plan Assessment and plan (1) End-stage renal disease on hemodialysis: Status: Acute Assessment and Plan: Jean-Pierre Calderón is a 75-year-old gentleman with past medical history of HTN, HLD, DM2, Diabetic foot infections, CAD s/p CABG, ESRD HD MWF, Nephrogenic anemia and secondary hyperparathyroidism who presented to hospital with diabetic foot infection who is S/P BKA 1. Diabetic left foot? nonhealing ulcer with gangrene/ cellulitis dorsum of foot- S/P BKA 2. ESRD 3. Nephrogenic Anemia 4. Secondary Hyperparathyroidism 5. Hypertension 6. Hyperkalemia Plan: - HD per MWF schedule - protect AVF; Renal Diet - Calcitriol 0.5mcg MWF - EPO 20,000u weekly. - sevelamer 800mg TID - C/W current BP medications - K1 dialysate tomorrow on HD - Check CK ; Andriy Rudolph Shall arrange HD F/U when D/Leo Time Spent With Patient Time: Total time spent is greater than 50% in coordination of care (as documented) at patient's floor/unit and/or counseling patient: Progress Note: Quality Stroke Does the patient have a stroke diagnosis?: No
[2021-06-13 11:34] LABS: Glucose, Whole Blood 174 mg/dL (60-115)
--- NOTE | 2021-06-13 14:22 | P.PNVS_ITS ---
Subjective Subjective Date of Service: 06/13/21 Patient reports: no new complaints Interval history: Patient seen and examined. Patient had dressing changed yesterday and had significant bleeding overnight. Was given DDAVP. In addition he was noted to have a low hemoglobin this morning. He has been ordered for an additional unit of blood. Physical Exam Vital Signs: Vital Signs: Last Vital Signs Temp 97.9 F 06/13/21 14:18 Pulse 54 06/13/21 14:18 Resp 18 06/13/21 14:18 BP 111/57 L 06/13/21 14:18 Pulse Ox 100 06/13/21 14:18 BMI result Body Mass Index 27.0 Const: General: cooperative, healthy appearing and no acute distress Orientation/consciousness: oriented to person, oriented to place and oriented to time HEENT: Head: Yes normal to inspection Neck: Carotids: no bruits Chest: Chest palpation & inspection: normal inspection of the chest Resp: Effort & Inspection: normal respiratory effort and able to speak in co mplete sentences Auscultation: clear to auscultation bilaterally Cardio: Rate: regular rate Heart sounds: S1 normal heart sound present and S2 normal heart sound present GI: Inspection: Yes normal to inspection Skin: General skin exam: no rashes or lesions noted Wounds: amputation site ( Dressing changed, amputation site healing well.) Neuro: General: oriented to person, oriented to place, oriented to time and CN's II-XI intact bilaterally Extrem: General: Yes normal to inspection, Yes full ROM and Yes no clubbing, cyanosis or edema Psych: Appearance: grossly normal and well kempt Speech and movement: Normal speech and movement present Affect: normal affect Progress Note: A&P Assessment and plan (1) Status post below-knee amputation: Status: Acute Plan In short patient is doing well status post BKA. The concern is he continues to bleed. It appears to be a slow bleed. I am hopeful that the DDAVP and the additional unit of blood will help this stop. In addition he will require follow-up CBC tomorrow. May even consider a transfusion of platelets as his platelet count is low. We will continue monitor him closely. Thank you for allowing us to assist in his care. If there are any questions or concerns please do not hesitate to contact us. Fall Risk Details Current Medications: Current Medications Acetaminophen (Acetaminophen 325 Mg Tablet) 650 mg PO Q6H PRN PRN Reason: Pain, Mild (Pain Scale 1-3) Last Admin: 06/11/21 14:37 Dose: 650 mg Documented by: Amlodipine Besylate (Amlodipine Besylate 2.5 Mg Tablet) 2.5 mg PO DAILY [facility]; Protocol Last Admin: 06/13/21 07:45 Dose: 2.5 mg Documented by: Amlodipine Besylate (Amlodipine Besylate 5 Mg Tablet) 5 mg PO BEDTIME [facility]; Protocol Last Admin: 06/12/21 21:38 Dose: 5 mg Documented by: Aspirin (Aspirin Enteric Coated 81 Mg Tablet.) 81 mg PO DAILY [facility] Last Admin: 06/13/21 07:53 Dose: 81 mg Documented by: Atorvastatin Calcium (Atorvastatin Calcium 40 Mg Tablet) 40 mg PO BEDTIME [facility] Last Admin: 06/12/21 21:39 Dose: 40 mg Documented by: Bumetanide (Bumetanide 1 Mg Tablet) 1 mg PO DAILY [facility]; Protocol Last Admin: 06/13/21 07:53 Dose: 1 mg Documented by: Calcitriol (Calcitriol 0.25 Mcg Capsule) 0.5 mcg PO MoWeFr [facility] Last Admin: 06/12/21 14:51 Dose: 0.5 mcg Documented by: Carvedilol (Carvedilol 25 Mg Tablet) 25 mg PO BID [facility]; Protocol Last Admin: 06/13/21 07:52 Dose: 25 mg Documented by: Dextrose (Dextrose 50 % 25 Gm/50 Ml Vial) 25 gm IVPUSH Q15M PRN; Protocol PRN Reason: per Hypoglycemia Standing Ord. Last Admin: 06/07/21 07:15 Dose: 25 gm Documented by: Glucose (Glucose Gel 15 Gm Gel..Gram.) 15 gm PO Q15M PRN; Protocol PRN Reason: per Hypoglycemia Standing Ord. Insulin Glargine (Insulin Glargine,Hum.Rec.Anlog 100 Unit/Ml 10 Ml Vial) 6 unit SUBCUT BEDTIME [facility] Last Admin: 06/12/21 21:40 Dose: 6 unit Documented by: Insulin Human Lispro (Insulin Lispro 100 Unit/Ml 3 Ml Vial) 0 unit SUBCUT QIDACHS [facility]; Protocol Last Admin: 06/13/21 11:53 Dose: 2 unit Documented by: Lorazepam (Lorazepam 2 Mg/Ml Vial) 0.5 mg IVPUSH ONCE PRN PRN Reason: anxiety Losartan Potassium (Losartan Potassium 50 Mg Tablet) 50 mg PO DAILY [facility]; Protocol Last Admin: 06/13/21 07:51 Dose: 50 mg Documented by: Melatonin (Melatonin 3 Mg Tablet) 6 mg PO BEDTIME PRN PRN Reason: Insomnia Multivitamins/Vitamin C (Multivitamin Tablet) 1 tab PO DAILY [facility] Last Admin: 06/13/21 07:54 Dose: 1 tab Documented by: Oxycodone HCl (Oxycodone Hcl Immed Release 5 Mg Tablet) 5 mg PO Q6H PRN PRN Reason: Pain, Moderate (Pain Scale 4-6 Last Admin: 06/13/21 08:03 Dose: 5 mg Documented by: Pharmacy Consult (Consult Rx Perform Med Rec) 1 each MISCELLANE ONCE PRN PRN Reason: Consult order Senna (Sennosides 8.6 Mg Tablet) 17.2 mg PO BEDTIME PRN PRN Reason: Constipation Sevelamer Carbonate (Sevelamer Carbonate Tablet 800 Mg Tablet) 800 mg PO TIDWM [facility] Last Admin: 06/13/21 11:52 Dose: 800 mg Documented by: Sodium Chloride (0.9 % Sodium Chloride Flush 3 Ml Syringe) [facility] Last Admin: 06/13/21 07:57 Dose: 3 ml Documented by: Sodium Zirconium Cyclosilicate (Sodium Zirconium Cyclosilicate 10 Gm Powd.Pack) 10 gm PO DAILY [facility] Last Admin: 06/13/21 09:57 Dose: 10 gm Documented by: Ursodiol (Ursodiol 300 Mg Capsule) 300 mg PO BID [facility] Last Admin: 06/13/21 07:56 Dose: 300 mg Documented by: Time Spent With Patient Time: Total time spent is greater than 50% in coordination of care (as documented) at patient's floor/unit and/or counseling patient: Procedures Date of Service Date of Service: 06/13/21 Quality Stroke Does the patient have a stroke diagnosis?: No VTE Prior VTE?: No VTE Risk Level:: Medical - moderate - high VTE Device Contraindication: Treatment Not Indicated VTE Drug Contraindication: N/A - Med Ordered
[2021-06-13 16:33] LABS: Glucose, Whole Blood 197 mg/dL (60-115)
[2021-06-13 19:20] LABS: Glucose, Whole Blood 189 mg/dL (60-115)
[2021-06-13] MEDS: Insulin Glargine,Hum.rec.anlog 100 UNIT/ML 10 ML VIAL 6 UNIT SUBCUT (21:06)
[2021-06-13] MEDS: amLODIPine Besylate 5 MG TABLET PO (21:07)
[2021-06-13] MEDS: Atorvastatin Calcium 40 MG TABLET PO (21:07)
[2021-06-14] MEDS: 0.9 % Sodium Chloride Flush 3 ML SYRINGE IVFLUSH (00:17)
[2021-06-14 03:43] VITALS: BP 132/73; PULSE 56; RESP 18; TEMP 36.6; O2SAT 97
[2021-06-14 06:55] VITALS: BP 196/74; PULSE 57; RESP 18; TEMP 36.4; O2SAT 97
[2021-06-14 07:21] LABS: Glucose, Whole Blood 136 mg/dL (60-115)
--- NOTE | 2021-06-14 07:53 | HO.VASCPN ---
Subjective Subjective Date of Service: 06/14/21 Patient reports: no new complaints and feels better Interval history: Patient seen and examined. No significant events overnight. Appears to be doing relatively well. No bleeding events last night. Reports that pain is well controlled as well. Physical Exam Vital Signs: Vital Signs: Last Vital Signs Temp 97.6 F 06/14/21 06:55 Pulse 57 06/14/21 06:55 Resp 18 06/14/21 06:55 BP 196/74 H 06/14/21 06:55 Pulse Ox 97 06/14/21 06:55 BMI result Body Mass Index 27.0 Const: General: cooperative, healthy appearing and no acute distress Orientation/consciousness: oriented to person, oriented to place and oriented to time HEENT: Head: Yes normal to inspection Neck: Carotids: no bruits Chest: Chest palpation & inspection: normal inspection of the chest Resp: Effort & Inspection: normal respiratory effort and able to speak in complete sentences Auscultation: clear to auscultation bilaterally Cardio: Rate: regular rate Heart sounds: S1 normal heart sound present and S2 normal heart sound present GI: Inspection: Yes normal to inspection Skin: General skin exam: no rashes or lesions noted Wounds: amputation site (Dressing clean dry intact no bleeding events) Neuro: General: oriented to person, oriented to place, oriented to time and CN's II-XI intact bilaterally Extrem: General: Yes normal to inspection, Yes full ROM and Yes no clubbing, cyanosis or edema Psych: Appearance: grossly normal and well kempt Speech and movement: Normal speech and movement present Affect: normal affect Progress Note: A&P Assessment and plan (1) Status post below-knee amputation: Status: Acute Assessment and Plan: Patient doing well status post BKA. Appears to be relatively stable at the current time. Bleeding episodes appear to have resolved after DDAVP and in addition a unit of blood. Would recheck labs and is stable from my perspective for discharge. He can follow up with me as an outpatient in approximately 2 weeks time for suture and staple removal. Thank you for allowing us to assist in his care. If there are any questions or concerns please do not hesitate to contact us. Fall Risk Details Current Medications: Current Medications Acetaminophen (Acetaminophen 325 Mg Tablet) 650 mg PO Q6H PRN PRN Reason: Pain, Mild (Pain Scale 1-3) Last Admin: 06/11/21 14:37 Dose: 650 mg Documented by: Amlodipine Besylate (Amlodipine Besylate 2.5 Mg Tablet) 2.5 mg PO DAILY [facility]; Protocol Last Admin: 06/13/21 07:45 Dose: 2.5 mg Documented by: Amlodipine Besylate (Amlodipine Besylate 5 Mg Tablet) 5 mg PO BEDTIME [facility]; Protocol Last Admin: 06/13/21 21:07 Dose: 5 mg Documented by: Aspirin (Aspirin Enteric Coated 81 Mg Tablet.) 81 mg PO DAILY [facility] Last Admin: 06/13/21 07:53 Dose: 81 mg Documented by: Atorvastatin Calcium (Atorvastatin Calcium 40 Mg Tablet) 40 mg PO BEDTIME [facility] Last Admin: 06/13/21 21:07 Dose: 40 mg Documented by: Bumetanide (Bumetanide 1 Mg Tablet) 1 mg PO DAILY [facility]; Protocol Last Admin: 06/13/21 07:53 Dose: 1 mg Documented by: Calcitriol (Calcitriol 0.25 Mcg Capsule) 0.5 mcg PO MoWeFr [facility] Last Admin: 06/12/21 14:51 Dose: 0.5 mcg Documented by: Carvedilol (Carvedilol 25 Mg Tablet) 25 mg PO BID [facility]; Protocol Last Admin: 06/13/21 20:58 Dose: Not Given Documented by: Dextrose (Dextrose 50 % 25 Gm/50 Ml Vial) 25 gm IVPUSH Q15M PRN; Protocol PRN Reason: per Hypoglycemia Standing Ord. Last Admin: 06/07/21 07:15 Dose: 25 gm Documented by: Glucose (Glucose Gel 15 Gm Gel..Gram.) 15 gm PO Q15M PRN; Protocol PRN Reason: per Hypoglycemia Standing Ord. Insulin Glargine (Insulin Glargine,Hum.Rec.Anlog 100 Unit/Ml 10 Ml Vial) 6 unit SUBCUT BEDTIME [facility] Last Admin: 06/13/21 21:06 Dose: 6 unit Documented by: Insulin Human Lispro (Insulin Lispro 100 Unit/Ml 3 Ml Vial) 0 unit SUBCUT QIDACHS [facility]; Protocol Last Admin: 06/14/21 07:28 Dose: Not Given Documented by: Lorazepam (Lorazepam 2 Mg/Ml Vial) 0.5 mg IVPUSH ONCE PRN PRN Reason: anxiety Losartan Potassium (Losartan Potassium 50 Mg Tablet) 50 mg PO DAILY [facility]; Protocol Last Admin: 06/13/21 07:51 Dose: 50 mg Documented by: Melatonin (Melatonin 3 Mg Tablet) 6 mg PO BEDTIME PRN PRN Reason: Insomnia Multivitamins/Vitamin C (Multivitamin Tablet) 1 tab PO DAILY [facility] Last Admin: 06/13/21 07:54 Dose: 1 tab Documented by: Oxycodone HCl (Oxycodone Hcl Immed Release 5 Mg Tablet) 5 mg PO Q6H PRN PRN Reason: Pain, Moderate (Pain Scale 4-6 Last Admin: 06/13/21 08:03 Dose: 5 mg Documented by: Pharmacy Consult (Consult Rx Perform Med Rec) 1 each MISCELLANE ONCE PRN PRN Reason: Consult order Senna (Sennosides 8.6 Mg Tablet) 17.2 mg PO BEDTIME PRN PRN Reason: Constipation Sevelamer Carbonate (Sevelamer Carbonate Tablet 800 Mg Tablet) 800 mg PO TIDWM [facility] Last Admin: 06/13/21 16:34 Dose: 800 mg Documented by: Sodium Chloride (0.9 % Sodium Chloride Flush 3 Ml Syringe) 3 ml IVFLUSH QSHIFT [facility] Last Admin: 06/14/21 00:17 Dose: 3 ml Documented by: Sodium Zirconium Cyclosilicate (Sodium Zirconium Cyclosilicate 10 Gm Powd.Pack) 10 gm PO DAILY [facility] Last Admin: 06/13/21 09:57 Dose: 10 gm Documented by: Ursodiol (Ursodiol 300 Mg Capsule) 300 mg PO BID [facility] Last Admin: 06/13/21 21:07 Dose: 300 mg Documented by: Time Spent With Patient Time: Total time spent is greater than 50% in coordination of care (as documented) at patient's floor/unit and/or counseling patient: Procedures Date of Service Date of Service: 06/14/21 Quality Stroke Does the patient have a stroke diagnosis?: No VTE Prior VTE?: No VTE Risk Level:: Medical - moderate - high VTE Device Contraindication: Treatment Not Indicated VTE Drug Contraindication: N/A - Med Ordered
--- NOTE | 2021-06-14 10:06 | PM.PNNEP ---
Subjective Subjective Date of Service: 06/14/21 Principal diagnosis: ESRD Interval history: Events noted. All recent data reviewed. Seen on HD. Adjusted K in dialysate; D/W HD RN Physical Exam Vital Signs: Vital Signs: Last Vital Signs Temp 97.6 F 06/14/21 06:55 Pulse 57 06/14/21 06:55 Resp 18 06/14/21 06:55 BP 196/74 H 06/14/21 06:55 Pulse Ox 97 06/14/21 06:55 BMI result Body Mass Index 27.0 Const: General: comfortable Orientation/consciousness: patient oriented x3 Eyes: EOM: EOMs intact bilaterally Resp: Auscultation: diminished lung sounds Cardio: Rate: regular rate GI: Palpation (GI): Soft to palpation Neuro: General: patient oriented x3 Objective Data Labs CBC & Chem 7: 06/13/21 08:26 06/13/21 06:09 Labs: Laboratory Results - last 24 hr 06/13/21 06/13/21 06/13/21 08:26 10:17 10:37 Smear Path Review SEE NOTE POC Glucose 174 H Blood Type A Positive Antibody Screen NEGATIVE Crossmatch See Detail 06/13/21 06/13/21 06/14/21 16:29 19:14 06:53 Smear Path Review POC Glucose 197 H 189 H 136 H Blood Type Antibody Screen Crossmatch Microbiology Microbiology Results: Microbiology 06/01/21 18:24 Blood - Venous Blood Culture - Final No growth after 5 days. 06/01/21 18:24 Blood - Venous Blood Culture - Final No growth after 5 days. 06/01/21 18:24 Foot Left Gram Stain - Final 06/01/21 18:24 Foot Left Routine Culture - Final Procedures Date of Service Date of Service: 06/14/21 Assessment & Plan Assessment and plan (1) End-stage renal disease on hemodialysis: Status: Acute Assessment and Plan: Jean-Pierre Calderón is a 75-year-old gentleman with past medical history of HTN, HLD, DM2, Diabetic foot infections, CAD s/p CABG, ESRD HD MWF, Nephrogenic anemia and secondary hyperparathyroidism who presented to hospital with diabetic foot infection who is S/P BKA 1. Diabetic left foot? nonhealing ulcer with gangrene/ cellulitis dorsum of foot- S/P BKA 2. ESRD 3. Nephrogenic Anemia 4. Secondary Hyperparathyroidism 5. Hypertension 6. Hyperkalemia Plan: - HD per MWF schedule - protect AVF; Renal Diet - Calcitriol 0.5mcg MWF - EPO 20,000u TTS. - sevelamer 800mg TID - Could increase losartan to 100 mg if BP remains high - Check CK if K remains high Shall arrange HD F/U when D/Leo Time Spent With Patient Time: Total time spent is greater than 50% in coordination of care (as documented) at patient's floor/unit and/or counseling patient: Progress Note: Quality Stroke Does the patient have a stroke diagnosis?: No
[2021-06-14 11:56] LABS: Hematocrit 24.6 % (42.0-52.0); Hemoglobin 8.2 g/dl (14.0-18.0); Mean Corpuscular HGB Conc 33.3 g/dl (31.0-36.0); Mean Corpuscular Hemoglobin 30.7 pg (27.0-33.0); Mean Corpuscular Volume 92.1 fL (80.0-98.0); Mean Platelet Volume 11.3 fL (9.4-12.4); Platelet Count 229 X10*3/uL (160-400); Red Blood Count 2.67 X10*6/uL (4.60-5.80); Red Cell Distribution Width 17.2 % (11.0-16.0); White Blood Count 14.4 X10*3/uL (4.8-10.8)
--- NOTE | 2021-06-14 11:57 | MHC.CM.PN ---
Patient and family are now requesting that Patient return home with j-Grab VNA, resumed [employer] services(48 hours/week)and family support, rather than original plan to dc [facility]; LANA has made MD aware. IMM addressed with Daughter/HCP/Margo at [phone] at Patient's preference.
[2021-06-14 12:00] VITALS: BP 170/68; PULSE 77; RESP 18; TEMP 36.9; O2SAT 98
[2021-06-14] MEDS: Sevelamer Carbonate Tablet 800 MG TABLET PO (12:27)
[2021-06-14] MEDS: Losartan Potassium 50 MG TABLET PO (12:55)
[2021-06-14] MEDS: amLODIPine Besylate 2.5 MG TABLET PO (12:55)
[2021-06-14] MEDS: carvediloL 25 MG TABLET PO (12:55)
--- NOTE | 2021-06-14 13:32 | MHC.CM.PN ---
CM has informed Nephrology (DR. Ivonne Vela of Patient returning home today, via tiger text and responded affirmatively.
--- NOTE | 2021-06-14 15:24 | P.DS_ITS ---
DS: Providers Provider Date of Service: 06/14/21 Date of admission: 06/01/21 23:06 Primary care physician: Sanjana Guerrero MD Consults: 06/01/21 17:16 Consult to Wound Care Stat Consulting Provider: Sari Byers Reason for consultation: necrotic diabetic ulcer Has provider been notified: Yes 06/01/21 23:05 Consult to General Surgery Routine Consulting Provider: Yogi Santoyo Reason for consultation: Diabetic foot infection/necrosis Consult to Infectious Diseases Routine Consulting Provider: Yris Park Reason for consultation: Diabetic foot infection/necrosis Consult to Nephrology Routine Consulting Provider: Tereso Vogel Reason for consultation: ESRD 06/02/21 08:20 Consult to Vascular Surgery Routine Consulting Provider: August Swan Reason for consultation: Discoloration 5th toe, chronic ulcer 06/05/21 14:36 Consult to Cardiology Routine Consulting Provider: Keith Vicente Reason for consultation: preop risk strat BKA Has provider been notified: No DS: Transfer Hospital Acceptance Accepting Provider: Chief Complaint: Left foot ulcer 75-year-old old male with a past medical history of hypertension, hyperlipidemia, diabetes, diabetic foot infection, CAD status post CABG, ESRD on hemodialysis; anemia of chronic disease, presented to the hospital today with a chief complaint of diabetic foot infection.? Patient reports that he has he has diabetic foot wound on the left foot; has been following with the wound clinic; over the past 2 weeks is has been gradually worsening; went to the wound clinic today and was sent here for further evaluation/IV antibiotics.? Also mentioned that over the past couple days he has been having increased redness and also noted mild dark discoloration on the dorsum of the foot; denies any fevers at home.? Denies any chest pain or palpitations.? Mentions that his ambulation is limited secondary to the pain when he tries to walk on the foot.? Denies any fever chills cough.? Denies any GI symptoms.? Denies any chest pain or palpitations.? Review of all other systems is negative except mentioned above ER course: Per ER team patient noted to have diabetic foot infection, areas of necrosis noted; notified general surgery Dr. Santoyo is-suggested admission to the medicine service; CT of the foot showed no evidence of osteomyelitis/bone destruction/fluid collection/a. Hospital course: Nonhealing left diabetic foot ulcer with gangrene/cellulitis s/p left BKA 06/08, post op complication some bleeding that seems to have stabilized initially treated with vano/zosyn; d/c 06/09 as source of infection has been removed, no further need for abx To continue wound care now. Diabetes--acceptable control continue Lantus, SSI Acute on chronic anemia secondary to acute blood loss from surgery pt asymptomatic, will hold off on blood transfusion Hemoglobin is 7 today,tranfuse 1 unit Hyponatremia, chronic and table, 130 History of ESRD:? MWF continue hemodialysis, continue home? medication sevelamer, and Bumex Nephrology following Hyperkalemia--Ronni will repeat this afternoon, Ronni follow BMP Hypertension on multiple antihypertensive, Coreg, Cozaar, Bumex and Norvasc,? dose of losartan increased to 50 mg on 06/07 due to elevated blood pressures overall bp has improved. trending up today, but should improve with HD tomorrow follow BP Hyperlipidemia Continue Lipitor coronary artery disease seen by cardiology for preop eval, underwent nuclear stress test prior to surgery showing no major large territory ischemia no chest pain continue aspirin, Lipitor and Coreg. DS: Diagnosis Discharge Diagnosis (1) End-stage renal disease on hemodialysis: Status: Acute DS: Summary Time Spent with Patient Time attestation: Total time spent providing and/or coordinating discharge services: Discharge coordination time: Greater than 30 minutes Quality: Safe Use of Opioids Does Pt have an Active Cancer Diagnosis on the Problem List?: No Quality: Stroke Does the patient have a stroke diagnosis?: No Physical Exam Vital Signs: Vital Signs: Selected Entries 06/14/21 12:00 Temperature 98.4 F Pulse Rate 77 Respiratory Rate 18 Blood Pressure 170/68 H Pulse Oximetry 98 Oxygen Delivery Me thod Room Air Const: Other: General: AO X 3, no acute distress Resp: CTA bilateral CVS: S1,S2,RRR GI: +BS, NT, no distention Skin: No rash, s/p BKA Neuro: motor grossly intact Psych: appropriate affect DS: Data Data Completed and Pending Labs on day of discharge: Laboratory Results - last 24 hr 06/07/21 06/07/21 06/07/21 16:17 17:56 17:56 Sodium Potassium Chloride Carbon Dioxide Anion Gap BUN Creatinine 4.09 H* Estim Creat Clear Calc 13.7 Estimated GFR 14 POC Glucose 113 Random Glucose Calcium Random Vancomycin 13.2 L Blood Type Antibody Screen 06/07/21 06/07/21 06/08/21 19:44 21:36 07:05 Sodium Potassium Chloride Carbon Dioxide Anion Gap BUN Creatinine Estim Creat Clear Calc Estimated GFR POC Glucose 191 H 188 H Random Glucose Calcium Random Vancomycin Blood Type A Positive Antibody Screen NEGATIVE 06/08/21 06/08/21 06/08/21 08:47 11:14 14:35 Sodium 134 L Potassium 5.1 D Chloride 101 Carbon Dioxide 22 Anion Gap 16 BUN 34 H Creatinine 5.48 H* Estim Creat Clear Calc 10.2 Estimated GFR 10 POC Glucose 139 H 110 Random Glucose 161 H D Calcium 8.7 Random Vancomycin Blood Type Antibody Screen Discharge Plan Discharge Anticipated Discharge Date/Time: 06/14/21 10:45 Patient Disposition: Xfer SNF Discharge Diagnosis: Peripheral vascular disease, s/p amputaton Referrals: [facility] [Other] - 1 Week Sanjana Huitron MD [Primary Care Provider] - 1 Week Discharge Medications: Continued (DME) diabetic shoes 9 See Rx Instructions .Route .MEDSUPPLY Qty: 1 0RF Rx Instructions: As directed acetaminophen [Mapap Arthritis Pain] 650 mg tablet extended release 650 mg PO Q8H PRN (Reason: pain) 30 Days Qty: 90 1RF bumetanide 1 mg tablet 1 mg PO DAILY Qty: 30 6RF fenofibrate nanocrystallized 145 mg tablet 145 mg PO DAILY Qty: 30 6RF ferrous sulfate 325 mg (65 mg iron) tablet 325 mg PO TID 30 Days Qty: 90 6RF (DME) Gel mattress overlay Misc See Rx Instructions .Route Qty: 1 0RF Rx Instructions: As directed insulin glargine U-300 conc 300 unit/mL (3 mL) insulin pen 10 unit subcut BID Qty: 6 0RF Virt-Caps 1 mg capsule 1 cap PO DAILY 90 Days Qty: 90 1RF carvedilol 25 mg tablet 1 tab PO BID 0RF aspirin 81 mg tablet,delayed release (DR/EC) 1 tab PO DAILY 0RF ursodiol 300 mg capsule 1 cap PO BID 0RF ergocalciferol (vitamin D2) [Vitamin D2] 1,250 mcg (50,000 unit) capsule 1 cap PO FR 0RF amlodipine 5 mg tablet 5 mg PO BEDTIME 0RF atorvastatin 40 mg tablet 40 mg PO BEDTIME 0RF tramadol 50 mg tablet 50 mg PO BID-TID PRN (Reason: pain) 0RF amlodipine 5 mg tablet 5 mg PO DAILY Qty: 30 0RF (DME) Blood Pressure Cuff Misc See Rx Instructions .Route Qty: 1 0RF Rx Instructions: As directed (DME) blood-glucose meter [FreeStyle Lite Meter] Kit See Rx Instructions .Route Qty: 1 0RF Rx Instructions: As directed (DME) FreeStyle Lite Strips Strip See Rx Instructions .Route Qty: 100 11RF Rx Instructions: Use 1 test strip TID (DME) lancets [FreeStyle Lancets] 28 gauge misc See Rx Instructions .Route Qty: 100 10RF Rx Instructions: Use 1 lancet once a day sevelamer carbonate 800 mg tablet 800 mg PO TID 0RF (DME) blood pressure monitor Kit See Rx Instructions .Route Qty: 1 0RF Rx Instructions: As directed Changed losartan 25 mg tablet 50 mg PO DAILY 90 Days Qty: 90 1RF Discharge Orders: Discharge Order (Routine); Ordered 06/14/21 Ordered By: Martin Shine Diet: advance to usual diet Activity on Discharge: As tolerated Stand Alone Forms: Patient Portal Discharge page Activity Restrictions/Additional Instructions: Wound care upon discharge: xeroform, 4x4 and Kerlix wrap to be changed daily. Please call Dr. Swan at [phone] for 2 week follow up for suture and staple removal Care Plan Goals: Full recovery from amputation Health Concerns: diabetes, s/p ampuation, Plan of Treatment: Wound care, dressing changes and follow up with Dr. Swan Assessment: as above
[2021-06-14 16:53] LABS: Glucose, Whole Blood 295 mg/dL (60-115)
== END 2021-06-14 16:54 | disposition skilled nursing facility (03) | DRG 239 ==
LOC: HO.ED 23:40 → HO.EDOVER 23:49 → HO.S3 06-02 11:32
PROVIDERS: Hospitalist; Nurse Practitioner Acute Care; Physician Assistant; Physician Assistant Medical; Surgery Vascular Surgery; Admitting Provider Hospitalist; Emergency Provider Internal Medicine; PCP Internal Medicine; Visit Provider Internal Medicine
PROC: 0Y6J0Z2 Detachment at Left Lower Leg, Mid, Open Approach (ICD-10-PCS; CPT 27880; principal; 2021-06-08 13:10)
DX: E11.52 Type 2 diabetes mellitus with diabetic peripheral angiopathy with gangrene (principal); N18.6 End stage renal disease; L03.116 Cellulitis of left lower limb; E87.1 Hypo-osmolality and hyponatremia; D62 Acute posthemorrhagic anemia; M96.830 Postprocedural hemorrhage of a musculoskeletal structure following a musculoskeletal system procedure; I70.245 Atherosclerosis of native arteries of left leg with ulceration of other part of foot; E11.621 Type 2 diabetes mellitus with foot ulcer; L97.529 Non-pressure chronic ulcer of other part of left foot with unspecified severity; E11.22 Type 2 diabetes mellitus with diabetic chronic kidney disease; I25.10 Atherosclerotic heart disease of native coronary artery without angina pectoris; D63.1 Anemia in chronic kidney disease; Z95.1 Presence of aortocoronary bypass graft; E21.3 Hyperparathyroidism, unspecified; E87.5 Hyperkalemia; Z20.822 Contact with and (suspected) exposure to COVID-19; Z99.2 Dependence on renal dialysis; Z79.4 Long term (current) use of insulin; Z79.899 Other long term (current) drug therapy
CPT/HCPCS: 36247; 36415; 71045; 73630; 73700; 75630; 76937; 78452; 80048; 80053; 80202; 82565; 82947; 83036; 83605; 84132; 84484; 85025; 85027; 85610; 85652; 85730; 86140; 86850; 86900; 86901; 86920; 87040; 87071; 87205; 87635; 88307; 88311; 90999; 93005; 93017; 93923; 93925; 96365; 96367; 96375; 97162; 99152; 99153; 99285; A9500; C1769; C1887; J0131; J0280; J0696; J1100; J2250; J2270; J2405; J2543; J2597; J2785; J3010; J3370; P9016

== ENCOUNTER → 2021-06-27 09:55 | Outpatient (BNVA) | payer OTHER, SELFPAY | PROVIDERS: PCP Internal Medicine; Visit Provider Surgery Vascular Surgery | DX: Z47.81 Encounter for orthopedic aftercare following surgical amputation (principal); I73.9 Peripheral vascular disease, unspecified; Z89.512 Acquired absence of left leg below knee | CPT/HCPCS: 99212 ==

== ENCOUNTER → 2021-07-11 13:44 | Outpatient (BNVA) | payer OTHER, SELFPAY | PROVIDERS: PCP Internal Medicine; Visit Provider Surgery Vascular Surgery | DX: Z47.81 Encounter for orthopedic aftercare following surgical amputation (principal); I73.9 Peripheral vascular disease, unspecified; L53.9 Erythematous condition, unspecified; Z89.512 Acquired absence of left leg below knee | CPT/HCPCS: 99212 ==

== ENCOUNTER → 2021-07-25 12:50 | Outpatient (BNVA) | payer OTHER, SELFPAY | PROVIDERS: PCP Internal Medicine; Visit Provider Surgery Vascular Surgery | DX: Z47.81 Encounter for orthopedic aftercare following surgical amputation (principal); Z89.512 Acquired absence of left leg below knee; I73.9 Peripheral vascular disease, unspecified | CPT/HCPCS: 99212 ==

== ENCOUNTER → 2021-08-10 09:55 | Outpatient (BNVA) | payer OTHER, SELFPAY | PROVIDERS: PCP Internal Medicine; Visit Provider Surgery Vascular Surgery | DX: I73.9 Peripheral vascular disease, unspecified (principal); Z89.512 Acquired absence of left leg below knee | CPT/HCPCS: 99212 ==

== ENCOUNTER → 2021-08-31 12:22 | Outpatient (BNVA) | payer OTHER, SELFPAY | PROVIDERS: PCP Internal Medicine; Visit Provider Surgery Vascular Surgery | DX: Z47.81 Encounter for orthopedic aftercare following surgical amputation (principal); Z89.512 Acquired absence of left leg below knee | CPT/HCPCS: 99212 ==

== ENCOUNTER → 2021-09-14 13:15 | Outpatient (BNVA) | payer OTHER, SELFPAY | PROVIDERS: PCP Internal Medicine; Visit Provider Surgery Vascular Surgery | DX: I73.9 Peripheral vascular disease, unspecified (principal); Z89.512 Acquired absence of left leg below knee | CPT/HCPCS: Q3014 ==

== ENCOUNTER 2021-12-12 08:55 | Outpatient (REF) | payer OTHER, SELFPAY ==
--- NOTE | ~2021-12-12 | US_ITS ---
EXAMINATION: Noninvasive assessment of the right lower extremities with ARTERIAL DUPLEX and ANKLE BRACHIAL INDICES (ABIs). CLINICAL INFORMATION: Peripheral vascular disease TECHNIQUE: Duplex Doppler techniques with waveform analysis and measurement of velocities in the right common femoral, profunda femoris, superficial femoral, popliteal and tibial arteries were performed. Additionally, ankle pulse volume recordings, ankle pressure measurements and ankle brachial indices were obtained of the lower extremity arterial system. The study was performed only at rest. COMPARISON: Arterial ultrasound from 06/02/2021 FINDINGS: DIRECT DUPLEX DOPPLER FINDINGS: RIGHT LEG: Common femoral artery: 86.8 cm/s, phasicity: Triphasic. Mild calcified plaque Profunda femoris artery: 166 cm/s, phasicity: Biphasic Superficial femoral artery (proximal): 93.8 cm/s, phasicity: Triphasic. Mild calcified plaque Superficial femoral artery (mid): 51.9 cm/s, phasicity: Biphasic. Mild calcified plaque Superficial femoral artery (distal): 79.2 cm/s, phasicity: Biphasic. Mild calcified plaque Popliteal artery: 58.9 cm/s, phasicity: Biphasic. Mild calcified plaque Posterior tibial artery: 34.0 cm/s, phasicity: Biphasic Peroneal artery: Occluded ANKLE-BRACHIAL INDEX: Right: 1.0? ANKLE PRESSURES: Right: PT 84, DP 201 ANKLE PVR WAVEFORMS: Right: Mildly dampened US/US AVELINO complete IMPRESSION: Diffuse calcified plaque of the arterial vessels ro consistent with arterial calcinosis. Ankle-brachial index is normal according to measurements in the dorsalis pedis artery however this is likely falsely elevated. Decreased pressure in the posterior tibial artery with a dampened waveforms seen on duplex ultrasound most consistent with the below-knee small vessel disease. Peroneal artery is occluded on duplex ultrasound. No significant change compared to the prior exam
--- NOTE | ~2021-12-12 | US_ITS ---
EXAMINATION: Noninvasive assessment of the right lower extremities with ARTERIAL DUPLEX and ANKLE BRACHIAL INDICES (ABIs). CLINICAL INFORMATION: Peripheral vascular disease TECHNIQUE: Duplex Doppler techniques with waveform analysis and measurement of velocities in the right common femoral, profunda femoris, superficial femoral, popliteal and tibial arteries were performed. Additionally, ankle pulse volume recordings, ankle pressure measurements and ankle brachial indices were obtained of the lower extremity arterial system. The study was performed only at rest. COMPARISON: Arterial ultrasound from 06/02/2021 FINDINGS: DIRECT DUPLEX DOPPLER FINDINGS: RIGHT LEG: Common femoral artery: 86.8 cm/s, phasicity: Triphasic. Mild calcified plaque Profunda femoris artery: 166 cm/s, phasicity: Biphasic Superficial femoral artery (proximal): 93.8 cm/s, phasicity: Triphasic. Mild calcified plaque Superficial femoral artery (mid): 51.9 cm/s, phasicity: Biphasic. Mild calcified plaque Superficial femoral artery (distal): 79.2 cm/s, phasicity: Biphasic. Mild calcified plaque Popliteal artery: 58.9 cm/s, phasicity: Biphasic. Mild calcified plaque Posterior tibial artery: 34.0 cm/s, phasicity: Biphasic Peroneal artery: Occluded ANKLE-BRACHIAL INDEX: Right: 1.0? ANKLE PRESSURES: Right: PT 84, DP 201 ANKLE PVR WAVEFORMS: Right: Mildly dampened US/US arterial duplex LE RT IMPRESSION: Diffuse calcified plaque of the arterial vessels ro consistent with arterial calcinosis. Ankle-brachial index is normal according to measurements in the dorsalis pedis artery however this is likely falsely elevated. Decreased pressure in the posterior tibial artery with a dampened waveforms seen on duplex ultrasound most consistent with the below-knee small vessel disease. Peroneal artery is occluded on duplex ultrasound. No significant change compared to the prior exam
== END 2021-12-12 08:56 | disposition home or self-care (01) ==
LOC: HO.US 08:55
PROVIDERS: Visit Provider Surgery Vascular Surgery
DX: I73.9 Peripheral vascular disease, unspecified (principal)
CPT/HCPCS: 93923; 93926

== ENCOUNTER → 2021-12-26 09:44 | Outpatient (BNVA) | payer OTHER, SELFPAY | PROVIDERS: PCP Internal Medicine; Visit Provider Surgery Vascular Surgery | DX: I73.9 Peripheral vascular disease, unspecified (principal); Z89.512 Acquired absence of left leg below knee | CPT/HCPCS: 99212 ==

== ENCOUNTER 2022-01-11 12:28 | Outpatient (REF) | payer OTHER, SELFPAY ==
--- NOTE | ~2022-01-11 | XR_ITS ---
EXAMINATION: XR shoulder LT min 2V CLINICAL INFORMATION: Reason for Exam M25.512 - Pain in left shoulder COMPARISON: Radiographs 12/04/2018 TECHNIQUE: Three views of the shoulder FINDINGS: No acute fracture or dislocation. Moderate degenerative changes of the shoulder with loss of the acromioclavicular and to a lesser extent glenohumeral joint space. Advanced atherosclerotic vascular calcifications. Partially imaged median sternotomy wires. XR/XR shoulder LT min 2V IMPRESSION: Moderate degenerative changes of the shoulder.
== END 2022-01-11 12:29 | disposition home or self-care (01) ==
LOC: HO.HOSX 12:28
PROVIDERS: Visit Provider Physician Assistant
DX: M19.012 Primary osteoarthritis, left shoulder (principal)
CPT/HCPCS: 73030; 99202

== ENCOUNTER 2022-01-18 13:08 | Emergency (ER) | payer OTHER, SELFPAY ==
--- NOTE | ~2022-01-18 | US_ITS ---
CLINICAL INDICATION: Discolored, cold foot. FINDINGS: Real-time duplex on the examination of the right lower extremity arterial system was performed from the level of the common femoral artery to the posterior tibial artery. Right lower extremity peak systolic velocities (cm/s): Common femoral artery: 93 Profunda femoral artery: 181 Proximal superficial femoral artery: 94 Mid superficial femoral artery: 49 Distal superficial femoral artery: 65 Popliteal artery: 112 Posterior tibial artery: 27 Grayscale and color Doppler imaging of the right lower extremity demonstrates diffuse calcific atherosclerosis. Examination demonstrates biphasic flow with widened waveforms within the common femoral, superficial femoral, and popliteal arteries. No flow is seen within the mid peroneal artery. Blunted, monophasic waveforms appear present within the mid and distal portions of the posterior tibial artery. US/US arterial duplex LE RT IMPRESSION: Examination demonstrating extensive, multilevel atherosclerotic disease. Recommend clinical correlation. If clinical suspicion persists, vascular surgical consultation may be of use.
--- NOTE | 2022-01-18 14:09 | ED.LOWEXIN ---
HPI - Extremity Injury (Lower) General Chief Complaint: Extremity Injury, Lower Stated Complaint: r foot purple Time Seen by Provider: 01/18/22 14:56 Related Data Home Medications Medication Instructions Recorded Confirmed sevelamer carbonate 800 mg tablet 800 mg PO TID 01/22/20 11/30/21 amlodipine 5 mg tablet 5 mg PO BEDTIME 06/01/21 11/30/21 aspirin 81 mg tablet,delayed 1 tab PO DAILY 06/01/21 11/30/21 release carvedilol 25 mg tablet 1 tab PO BID 06/01/21 11/30/21 ursodiol 300 mg capsule 1 cap PO BID 06/01/21 11/30/21 losartan 50 mg tablet 50 mg PO DAILY 06/27/21 11/30/21 Previous Rx's Medication Instructions Recorded diabetic shoes #1 ea 08/15/20 blood sugar diagnostic (FreeStyle #100 ea 04/04/21 Lite Strips) blood-glucose meter (FreeStyle #1 ea 04/04/21 Lite Meter kit) lancets 28 gauge (FreeStyle #100 ea 04/04/21 Lancets) miscellaneous medical supply #1 ea 04/04/21 (Blood Pressure Cuff) Gel mattress overlay #1 ea 04/17/21 insulin glargine U-300 conc 300 10 unit (0.0333 mL) subcut BID #6 04/21/21 unit/mL (3 mL) subcutaneous pen mL blood pressure monitor #1 ea 05/02/21 losartan 25 mg tablet 50 mg PO DAILY 90 days #90 tabs 06/14/21 bumetanide 1 mg tablet 1 mg PO DAILY #30 tabs 08/18/21 fenofibrate nanocrystallized 145 145 mg PO DAILY #30 tabs 08/18/21 mg tablet ferrous sulfate 325 mg (65 mg 325 mg PO TID 30 days #90 tabs 08/22/21 iron) tablet mirtazapine 15 mg tablet 15 mg PO BEDTIME 90 days #90 tabs 09/07/21 vitamin B complex and vitamin C 1 cap PO DAILY 90 days #90 caps 10/28/21 no.20-folic acid 1 mg capsule (Virt-Caps) docusate sodium 100 mg capsule 100 mg PO DAILY #30 caps 11/04/21 (Colace) acetaminophen 650 mg 650 mg PO Q8H PRN pain 30 days #90 11/27/21 tablet,extended release (Mapap tabs Arthritis Pain) tramadol 50 mg tablet 50 mg PO DAILY PRN pain 30 days 11/30/21 #30 tabs atorvastatin 40 mg tablet 40 mg PO BEDTIME 90 days #90 tabs 12/28/21 ergocalciferol (vitamin D2) 1,250 1,250 mcg PO QWEEK 30 days #5 caps 12/28/21 mcg (50,000 unit) capsule (Vitamin D2) amlodipine 5 mg tablet 5 mg PO DAILY #30 tabs 01/05/22 Allergies Allergy/AdvReac Type Severity Reaction Status Date / Time lisinopril Allergy Intermediate hyperkalemi Verified 01/11/22 10:25 a lidocaine [From LIDOPRIL] Allergy Mild COUGH Verified 01/11/22 10:25 prilocaine [From LIDOPRIL] Allergy Mild COUGH Verified 01/11/22 10:25 canagliflozin [Invokana] AdvReac Mild back pain Verified 01/11/22 10:25 Hydralazine-HCTZ Allergy Unknown Unknown Uncoded 01/11/22 10:25 [facility] Past Medical History Medical History Anemia in chronic kidney disease Below-knee amputation of left lower extremity Diabetes Diabetes mellitus, with long-term current use of insulin Diarrhea End stage renal disease End-stage renal disease on hemodialysis High cholesterol History of leg amputation Hypertension Microalbuminuria Mixed hyperlipidemia PAD (peripheral artery disease) Preoperative cardiovascular examination Surgical History History of eye surgery History of laminectomy History of surgery History of surgery on arm S/P CABG x 4 S/P unilateral BKA (below knee amputation) Family History Family History Father Myocardial infarction Mother No problems noted. Social History Social History Household Members: Children Housing: House Do you presently have visiting nurse or other home services: Yes (daughter/son top lifter) Alcohol intake: never Patient Tobacco Use Status: Never used Tobacco e-Cigarette/Vaping Use: Never Used Second Hand Smoke Exposure: No Advance Directives: Yes Advance Directives on File: Yes Advance Directives Date on File: 06/15/21 service: No Current occupational status: retired and disabled Cognitive needs: Yes Hearing needs: No Vision needs: No Physical Exam Vital Signs: Vital Signs: Last Vital Signs Temp 98.8 F 01/18/22 14:30 Pulse 69 01/18/22 14:30 Resp 16 01/18/22 14:30 BP 155/35 H 01/18/22 14:30 Pulse Ox 96 01/18/22 14:30 O2 Del Method 01/18/22 14:30 BMI result Body Mass Index 25.0 Course Course Course Narrative: DAMIEN-- 76-year-old male with past medical history of diabetes, ESRD, HTN, HLD, left prior BKA, PAD followed with Dr. Swan presenting to ED from Dr. Swan's office for right foot discoloration and necrotic area to 3rd toe x 2 weeks. 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 Takes ASA. Today was his follow-up appointment for the ultrasound however did not see Dr. Swan Foot notably discolored with black area noted to 3rd toe. Cold to touch. Faint pulses palpable. EKG, labs, arterial duplex ordered in triage. Charge aware, patient will be next one brought back into the department MDM - Extremity Injury (Lower) Lab Data Result diagrams: 01/18/22 14:51 01/18/22 14:51 Labs: Lab Results 01/18/22 01/18/22 01/18/22 Range/Units 14:51 14:51 14:51 WBC 6.1 (4.8-10.8) X10*3/uL RBC 3.68 L D (4.60-5.80) X10*6/uL Hgb 11.3 L D (14.0-18.0) g/dl Hct 36.0 L D (42.0-52.0) % MCV 97.8 (80.0-98.0) fL MCH 30.7 (27.0-33.0) pg MCHC 31.4 (31.0-36.0) g/dl RDW 14.3 (11.0-16.0) % Plt Count 205 (160-400) X10*3/uL MPV 12.0 (9.4-12.4) fL Immature Gran % (Auto) 0.2 (0.0-0.4) % Neut % (Auto) 66.6 (45-73) % Lymph % (Auto) 12.9 L (20-40) % Schleicher % (Auto) 7.8 (2-11) % Eos % (Auto) 11.7 H (0-4) % Baso % (Auto) 0.8 (0-2) % Lymph # (Auto) 0.8 L (1.2-4.9) X10*3/uL Schleicher # (Auto) 0.5 (0.1-1.2) X10*3/uL Eos # (Auto) 0.7 H (0.0-0.4) X10*3/uL Baso # (Auto) 0.1 (0.0-0.2) X10*3/uL Abs Immat Gran (auto) 0.01 (0.00-0.03) X10*3/uL Absolute Neuts (auto) 4.0 (2.0-8.3) x10*3/uL Absolute Nucleated RBC 0.000 (0.0-0.012) X10*3/uL Nucleated RBC % (auto) 0.0 (0.0-0.2) /100WBC ESR 43 H (0-15) MM/HR PT (10.0-13.1) SEC INR (0.9-1.1) APTT (26.0-36.4) SEC Sodium 139 (135-145) mmol/L Potassium 4.0 D (3.3-5.1) mmol/L Chloride 97 (96-108) mmol/L Carbon Dioxide 26 (22-29) mmol/L Anion Gap 20 (12-20) BUN 47 H (9-16) mg/dL Creatinine 5.33 H* (0.5-1.4) mg/dL Estim Creat Clear Calc 10.4 Estimated GFR 11 Random Glucose 284 H (60-115) mg/dL Lactic Acid (0.5-2.0) mmol/L Calcium 8.7 (8.4-10.2) mg/dL Magnesium 2.1 (1.6-2.6) mg/dL Total Bilirubin 0.5 (0.0-1.0) mg/dL Direct Bilirubin 0.3 (0.0-0.5) mg/dL AST 26 (5-37) U/L ALT 23 (0-40) U/L Alkaline Phosphatase 54 (39-117) U/L C-Reactive Protein 1.05 H (< or = 0.50) mg/dL B-Natriuretic Peptide (<100) pg/mL Total Protein 7.1 (6.5-8.0) g/dL Albumin 3.3 L (3.5-5.0) g/dL 01/18/22 01/18/22 01/18/22 Range/Units 14:51 14:51 14:51 WBC (4.8-10.8) X10*3/uL RBC (4.60-5.80) X10*6/uL Hgb (14.0-18.0) g/dl Hct (42.0-52.0) % MCV (80.0-98.0) fL MCH (27.0-33.0) pg MCHC (31.0-36.0) g/dl RDW (11.0-16.0) % Plt Count (160-400) X10*3/uL MPV (9.4-12.4) fL Immature Gran % (Auto) (0.0-0.4) % Neut % (Auto) (45-73) % Lymph % (Auto) (20-40) % Schleicher % (Auto) (2-11) % Eos % (Auto) (0-4) % Baso % (Auto) (0-2) % Lymph # (Auto) (1.2-4.9) X10*3/uL Schleicher # (Auto) (0.1-1.2) X10*3/uL Eos # (Auto) (0.0-0.4) X10*3/uL Baso # (Auto) (0.0-0.2) X10*3/uL Abs Immat Gran (auto) (0.00-0.03) X10*3/uL Absolute Neuts (auto) (2.0-8.3) x10*3/uL Absolute Nucleated RBC (0.0-0.012) X10*3/uL Nucleated RBC % (auto) (0.0-0.2) /100WBC ESR (0-15) MM/HR PT 13.0 (10.0-13.1) SEC INR 1.1 (0.9-1.1) APTT 36.2 (26.0-36.4) SEC Sodium (135-145) mmol/L Potassium (3.3-5.1) mmol/L Chloride (96-108) mmol/L Carbon Dioxide (22-29) mmol/L Anion Gap (12-20) BUN (9-16) mg/dL Creatinine (0.5-1.4) mg/dL Estim Creat Clear Calc Estimated GFR Random Glucose (60-115) mg/dL Lactic Acid 1.2 (0.5-2.0) mmol/L Calcium (8.4-10.2) mg/dL Magnesium (1.6-2.6) mg/dL Total Bilirubin (0.0-1.0) mg/dL Direct Bilirubin (0.0-0.5) mg/dL AST (5-37) U/L ALT (0-40) U/L Alkaline Phosphatase (39-117) U/L C-Reactive Protein (< or = 0.50) mg/dL B-Natriuretic Peptide 1059 H (<100) pg/mL Total Protein (6.5-8.0) g/dL Albumin (3.5-5.0) g/dL Discharge Plan Discharge Clinical Impression: PAD (peripheral artery disease), Chronic renal failure Patient Disposition: Home, Self-Care Instructions: Peripheral Vascular Disease (ED), Peripheral Artery Disease (ED) Additional Instructions: Call Dr. Swan tomorrow morning after 8:00 a.m. to schedule a follow-up appointment. Llame al Dr. Swan ma?barbara por la bassem?barbara despu?s de las 8:00 a. m. para programar jodie tomasa de seguimiento. Prescriptions: No Action (DME) diabetic shoes 9 See Rx Instructions .Route .MEDSUPPLY Qty: 1 0RF Rx Instructions: As directed (DME) Gel mattress overlay Misc See Rx Instructions .Route Qty: 1 0RF Rx Instructions: As directed insulin glargine U-300 conc 300 unit/mL (3 mL) insulin pen 10 unit subcut BID Qty: 6 0RF fenofibrate nanocrystallized 145 mg tablet 145 mg PO DAILY Qty: 30 6RF bumetanide 1 mg tablet 1 mg PO DAILY Qty: 30 6RF ferrous sulfate 325 mg (65 mg iron) tablet 325 mg PO TID 30 Days Qty: 90 6RF mirtazapine 15 mg tablet 15 mg PO BEDTIME 90 Days Qty: 90 0RF Virt-Caps 1 mg capsule 1 cap PO DAILY 90 Days Qty: 90 1RF docusate sodium [Colace] 100 mg capsule 100 mg PO DAILY Qty: 30 0RF acetaminophen [Mapap Arthritis Pain] 650 mg tablet extended release 650 mg PO Q8H PRN (Reason: pain) 30 Days Qty: 90 1RF ergocalciferol (vitamin D2) [Vitamin D2] 1,250 mcg (50,000 unit) capsule 1,250 mcg PO QWEEK 30 Days Qty: 5 0RF atorvastatin 40 mg tablet 40 mg PO BEDTIME 90 Days Qty: 90 1RF amlodipine 5 mg tablet 5 mg PO DAILY Qty: 30 0RF carvedilol 25 mg tablet 1 tab PO BID aspirin 81 mg tablet,delayed release (DR/EC) 1 tab PO DAILY ursodiol 300 mg capsule 1 cap PO BID amlodipine 5 mg tablet 5 mg PO BEDTIME losartan 25 mg tablet 50 mg PO DAILY 90 Days Qty: 90 1RF (DME) Blood Pressure Cuff Misc See Rx Instructions .Route Qty: 1 0RF Rx Instructions: As directed (DME) blood-glucose meter [FreeStyle Lite Meter] Kit See Rx Instructions .Route Qty: 1 0RF Rx Instructions: As directed (DME) FreeStyle Lite Strips Strip See Rx Instructions .Route Qty: 100 11RF Rx Instructions: Use 1 test strip TID (DME) lancets [FreeStyle Lancets] 28 gauge misc See Rx Instructions .Route Qty: 100 10RF Rx Instructions: Use 1 lancet once a day sevelamer carbonate 800 mg tablet 800 mg PO TID tramadol 50 mg tablet 50 mg PO DAILY PRN (Reason: pain) 30 Days Qty: 30 0RF (DME) blood pressure monitor Kit See Rx Instructions .Route Qty: 1 0RF Rx Instructions: As directed losartan 50 mg tablet 50 mg PO DAILY Referrals: August Swan MD [Physician] - 1 day Interventions: ED Discharge Assessment Last Done: 01/18/22 18:08 Discharge Date/Time: 01/18/22 18:09
[2022-01-18 14:10] VITALS: BP 157/35; PULSE 69; RESP 18; TEMP 36.2; O2SAT 97; BMI 25.0
--- NOTE | 2022-01-18 14:15 | ECG_ITS ---
Test Reason : weakness Blood Pressure : / mmHG Vent. Rate : 068 BPM Atrial Rate : 068 BPM P-R Int : 166 ms QRS Dur : 118 ms QT Int : 410 ms P-R-T Axes : 000 -35 124 degrees QTc Int : 435 ms Normal sinus rhythm Left axis deviation Left ventricular hypertrophy with QRS widening and repolarization abnormality ( R in aVL , Gregory product ) Anterolateral infarct , age undetermined Abnormal ECG change in precordial leads QRS duration has increased Referred By: Princess Villegas Electronically Signed By:TRESSA POON MD
[2022-01-18 14:30] VITALS: BP 155/35; PULSE 69; RESP 16; TEMP 37.1; O2SAT 96
[2022-01-18 14:57] LABS: MANUAL DIFF FLAG NO
[2022-01-18 14:59] LABS: Basophils Absolute Auto 0.1 X10*3/uL (0.0-0.2); Basophils Percent Auto 0.8 % (0-2); Eosinophils Absolute Auto 0.7 X10*3/uL (0.0-0.4); Eosinophils Percent Auto 11.7 % (0-4); Hemoglobin 11.3 g/dl (14.0-18.0); Imm Gran Abs Auto 0.01 X10*3/uL (0.00-0.03); Imm Gran Pct Auto 0.2 % (0.0-0.4); Lymphocytes Absolute Auto 0.8 X10*3/uL (1.2-4.9); Lymphocytes Percent Auto 12.9 % (20-40); Mean Corpuscular HGB Conc 31.4 g/dl (31.0-36.0); Mean Corpuscular Hemoglobin 30.7 pg (27.0-33.0); Mean Corpuscular Volume 97.8 fL (80.0-98.0); Monocytes Absolute Auto 0.5 X10*3/uL (0.1-1.2); Monocytes Percent Auto 7.8 % (2-11); Neutrophils Percent Auto 66.6 % (45-73); Platelet Count 205 X10*3/uL (160-400); Red Blood Count 3.68 X10*6/uL (4.60-5.80); Red Cell Distribution Width 14.3 % (11.0-16.0); White Blood Count 6.1 X10*3/uL (4.8-10.8)
[2022-01-18 15:05] LABS: INTERNATIONAL NORM RATIO 1.1 (0.9-1.1)
[2022-01-18 15:08] LABS: Partial Thromboplastin Time 36.2 SEC (26.0-36.4)
[2022-01-18 15:09] LABS: Lactic Acid 1.2 mmol/L (0.5-2.0)
--- NOTE | 2022-01-18 15:10 | ED_ITS ---
HPI - General Adult General Chief complaint: Extremity Injury, Lower Stated complaint: r foot purple Time Seen by Provider: 01/18/22 14:56 Source: patient, RN notes reviewed and old records reviewed Mode of arrival: EMS History of Present Illness HPI narrative: 76-year-old male with a past medical history of hypertension, osteoarthritis, end-stage renal disease, status post BKA on the left and peripheral vascular disease presents to the emergency department from his doctor's office with complaints of ?right foot is purple?. The patient does not have any specific complaints at this time. The patient states his foot has been like this for approximately 2 weeks. The patient was seen by his vascular surgeon on December 26, and at that time, the vasculature in his right lower extremity was felt to be stable Onset (ago): week(s) Location: lower extremity Severity: moderate Associated symptoms: denies other symptoms Related Data Home Medications Medication Instructions Recorded Confirmed sevelamer carbonate 800 mg tablet 800 mg PO TID 01/22/20 11/30/21 amlodipine 5 mg tablet 5 mg PO BEDTIME 06/01/21 11/30/21 aspirin 81 mg tablet,delayed 1 tab PO DAILY 06/01/21 11/30/21 release carvedilol 25 mg tablet 1 tab PO BID 06/01/21 11/30/21 ursodiol 300 mg capsule 1 cap PO BID 06/01/21 11/30/21 losartan 50 mg tablet 50 mg PO DAILY 06/27/21 11/30/21 Previous Rx's Medication Instructions Recorded diabetic shoes #1 ea 08/15/20 blood sugar diagnostic (FreeStyle #100 ea 04/04/21 Lite Strips) blood-glucose meter (FreeStyle #1 ea 04/04/21 Lite Meter kit) lancets 28 gauge (FreeStyle #100 ea 04/04/21 Lancets) miscellaneous medical supply #1 ea 04/04/21 (Blood Pressure Cuff) Gel mattress overlay #1 ea 04/17/21 insulin glargine U-300 conc 300 10 unit (0.0333 mL) subcut BID #6 04/21/21 unit/mL (3 mL) subcutaneous pen mL blood pressure monitor #1 ea 05/02/21 losartan 25 mg tablet 50 mg PO DAILY 90 days #90 tabs 06/14/21 bumetanide 1 mg tablet 1 mg PO DAILY #30 tabs 08/18/21 fenofibrate nanocrystallized 145 145 mg PO DAILY #30 tabs 08/18/21 mg tablet ferrous sulfate 325 mg (65 mg 325 mg PO TID 30 days #90 tabs 08/22/21 iron) tablet mirtazapine 15 mg tablet 15 mg PO BEDTIME 90 days #90 tabs 09/07/21 vitamin B complex and vitamin C 1 cap PO DAILY 90 days #90 caps 10/28/21 no.20-folic acid 1 mg capsule (Virt-Caps) docusate sodium 100 mg capsule 100 mg PO DAILY #30 caps 11/04/21 (Colace) acetaminophen 650 mg 650 mg PO Q8H PRN pain 30 days #90 11/27/21 tablet,extended release (Mapap tabs Arthritis Pain) tramadol 50 mg tablet 50 mg PO DAILY PRN pain 30 days 11/30/21 #30 tabs atorvastatin 40 mg tablet 40 mg PO BEDTIME 90 days #90 tabs 12/28/21 ergocalciferol (vitamin D2) 1,250 1,250 mcg PO QWEEK 30 days #5 caps 12/28/21 mcg (50,000 unit) capsule (Vitamin D2) amlodipine 5 mg tablet 5 mg PO DAILY #30 tabs 01/05/22 Allergies Allergy/AdvReac Type Severity Reaction Status Date / Time lisinopril Allergy Intermediate hyperkalemi Verified 01/11/22 10:25 a lidocaine [From LIDOPRIL] Allergy Mild COUGH Verified 01/11/22 10:25 prilocaine [From LIDOPRIL] Allergy Mild COUGH Verified 01/11/22 10:25 canagliflozin [Invokana] AdvReac Mild back pain Verified 01/11/22 10:25 Hydralazine-HCTZ Allergy Unknown Unknown Uncoded 01/11/22 10:25 Review of Systems Review of Systems: Yes all other systems are reviewed and are negative Constitutional: Constitutional: Denies chills and Denies fever(s) Eyes: Eyes: Denies change in vision, Denies diplopia and Denies loss of vision ENT: Denies dizziness, Denies facial pain and Denies neck pain Cardiovascular: Cardiovascular: Reports no additional cardiovascular complaints Respiratory: Respiratory: Reports no additional respiratory complaints and Denies cough Gastrointestinal: Gastrointestinal: Denies abdominal pain, Denies diarrhea and Denies nausea Musculoskeletal: Musculoskeletal: Denies neck pain and Denies numbness Integumentary/Breasts: Skin/Breast: Reports change in pigmentation, Denies skin swelling and Denies skin ulcer Neurologic: Denies Abnormal speech present, Denies confusion, Denies dizziness, Denies loss of vision and Denies numbness Psychiatric: Psychiatric: Denies confusion [facility] Past Medical History Medical History Anemia in chronic kidney disease Below-knee amputation of left lower extremity Diabetes Diabetes mellitus, with long-term current use of insulin Diarrhea End stage renal disease End-stage renal disease on hemodialysis High cholesterol History of leg amputation Hypertension Microalbuminuria Mixed hyperlipidemia PAD (peripheral artery disease) Preoperative cardiovascular examination Surgical History History of eye surgery History of laminectomy History of surgery History of surgery on arm S/P CABG x 4 S/P unilateral BKA (below knee amputation) Family History Family History Father Myocardial infarction Mother No problems noted. 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) Alcohol intake: never Patient Tobacco Use Status: Never used Tobacco e-Cigarette/Vaping Use: Never Used Second Hand Smoke Exposure: No Advance Directives: Yes Advance Directives on File: Yes Advance Directives Date on File: 06/15/21 service: No Current occupational status: retired and disabled Cognitive needs: Yes Hearing needs: No Vision needs: No Physical Exam ED Vital Signs: Vital Signs - 24 hr 01/18/22 14:10 01/18/22 14:30 Temperature 97.1 F 98.8 F Pulse Rate 69 69 Respiratory Rate 18 16 Blood Pressure 157/35 H 155/35 H Pulse Oximetry 97 96 Oxygen Delivery Method Room Air Room Air BMI result Body Mass Index 25.0 Vital signs are stable and Const General: cooperative, comfortable and no acute distress; No confusion Orientation/consciousness: patient oriented x3 and No confusion HENMT Head: Yes normal to inspection, Yes normocephalic and Yes atraumatic Ears: hearing grossly normal bilaterally General nose exam: Normal external nose present Face and sinus: Yes normal facial exam Mouth: Normal oral and palatal mucosa present Eyes Conjunctivae: conjunctivae normal Sclerae: sclerae normal Pupils: Equal, round and reactive pupils present EOM: EOMs intact bilaterally Neck Neck: Yes normal visual inspection and Yes full ROM Chest Chest palpation & inspection: normal inspection of the chest Resp Effort & Inspection: normal respiratory effort and no cough Cardio Rate: regular rate Rhythm: regular rhythm GI Inspection: Yes normal to inspection and No obesity Skin General skin exam: no rashes or lesions noted, no jaundice and no pallor Neuro General: patient oriented x3 and No confusion Cranial nerves: Yes CN's II-XII intact bilaterally and Yes Equal, round and reactive pupils present Cognition (Neuro): normal cognition Speech: No Abnormal speech present Extrem Other: Left BKA The right lower extremity is discolored and ecchymotic on the foot mostly, including the ankle and lower calf area Right upper extremity: no edema Medical Decision Making MDM Narrative Medical decision making narrative: 76-year-old male with past medical history of hypertension and peripheral vascular disease along with chronic renal failure on dialysis presents to the ED with a red right foot. Patient is status post left BKA. The patient was seen by his primary care doctor today and sent to the emergency department. He was seen 2 weeks ago by his vascular surgeon. The patient states his symptoms have been going on for 2 weeks. He denies any fevers or chills. It is likely that this is just chronic vascular changes. I did discuss the case with Dr. Gee, who was able to view images of the patient's foot on secure chat. Patient has no elevated white count or fever, and at this time is fully dressed and asking to go home. He will be discharged and will follow up with his vascular surgeon tomorrow morning. He is advised to call after 8:00 a.m. Medical Records Medical records reviewed: Yes I reviewed the patient's medical records. Medical records narrative: Reviewed office notes from primary care doctor as well as vascular surgery Lab Data Lab results reviewed: Yes I reviewed the patient's lab results. Lab results narrative: Creatinine 5.33 (patient is on dialysis) Result diagrams: 01/18/22 14:51 01/18/22 14:51 Labs: Lab Results 01/18/22 01/18/22 01/18/22 Range/Units 14:51 14:51 14:51 WBC 6.1 (4.8-10.8) X10*3/uL RBC 3.68 L D (4.60-5.80) X10*6/uL Hgb 11.3 L D (14.0-18.0) g/dl Hct 36.0 L D (42.0-52.0) % MCV 97.8 (80.0-98.0) fL MCH 30.7 (27.0-33.0) pg MCHC 31.4 (31.0-36.0) g/dl RDW 14.3 (11.0-16.0) % Plt Count 205 (160-400) X10*3/uL MPV 12.0 (9.4-12.4) fL Immature Gran % (Auto) 0.2 (0.0-0.4) % Neut % (Auto) 66.6 (45-73) % Lymph % (Auto) 12.9 L (20-40) % Tucker % (Auto) 7.8 (2-11) % Eos % (Auto) 11.7 H (0-4) % Baso % (Auto) 0.8 (0-2) % Lymph # (Auto) 0.8 L (1.2-4.9) X10*3/uL Tucker # (Auto) 0.5 (0.1-1.2) X10*3/uL Eos # (Auto) 0.7 H (0.0-0.4) X10*3/uL Baso # (Auto) 0.1 (0.0-0.2) X10*3/uL Abs Immat Gran (auto) 0.01 (0.00-0.03) X10*3/uL Absolute Neuts (auto) 4.0 (2.0-8.3) x10*3/uL Absolute Nucleated RBC 0.000 (0.0-0.012) X10*3/uL Nucleated RBC % (auto) 0.0 (0.0-0.2) /100WBC ESR 43 H (0-15) MM/HR PT (10.0-13.1) SEC INR (0.9-1.1) APTT (26.0-36.4) SEC Sodium 139 (135-145) mmol/L Potassium 4.0 D (3.3-5.1) mmol/L Chloride 97 (96-108) mmol/L Carbon Dioxide 26 (22-29) mmol/L Anion Gap 20 (12-20) BUN 47 H (9-16) mg/dL Creatinine 5.33 H* (0.5-1.4) mg/dL Estim Creat Clear Calc 10.4 Estimated GFR 11 Random Glucose 284 H (60-115) mg/dL Lactic Acid (0.5-2.0) mmol/L Calcium 8.7 (8.4-10.2) mg/dL Magnesium 2.1 (1.6-2.6) mg/dL Total Bilirubin 0.5 (0.0-1.0) mg/dL Direct Bilirubin 0.3 (0.0-0.5) mg/dL AST 26 (5-37) U/L ALT 23 (0-40) U/L Alkaline Phosphatase 54 (39-117) U/L C-Reactive Protein 1.05 H (< or = 0.50) mg/dL B-Natriuretic Peptide (<100) pg/mL Total Protein 7.1 (6.5-8.0) g/dL Albumin 3.3 L (3.5-5.0) g/dL 01/18/22 01/18/22 01/18/22 Range/Units 14:51 14:51 14:51 WBC (4.8-10.8) X10*3/uL RBC (4.60-5.80) X10*6/uL Hgb (14.0-18.0) g/dl Hct (42.0-52.0) % MCV (80.0-98.0) fL MCH (27.0-33.0) pg MCHC (31.0-36.0) g/dl RDW (11.0-16.0) % Plt Count (160-400) X10*3/uL MPV (9.4-12.4) fL Immature Gran % (Auto) (0.0-0.4) % Neut % (Auto) (45-73) % Lymph % (Auto) (20-40) % Tucker % (Auto) (2-11) % Eos % (Auto) (0-4) % Baso % (Auto) (0-2) % Lymph # (Auto) (1.2-4.9) X10*3/uL Tucker # (Auto) (0.1-1.2) X10*3/uL Eos # (Auto) (0.0-0.4) X10*3/uL Baso # (Auto) (0.0-0.2) X10*3/uL Abs Immat Gran (auto) (0.00-0.03) X10*3/uL Absolute Neuts (auto) (2.0-8.3) x10*3/uL Absolute Nucleated RBC (0.0-0.012) X10*3/uL Nucleated RBC % (auto) (0.0-0.2) /100WBC ESR (0-15) MM/HR PT 13.0 (10.0-13.1) SEC INR 1.1 (0.9-1.1) APTT 36.2 (26.0-36.4) SEC Sodium (135-145) mmol/L Potassium (3.3-5.1) mmol/L Chloride (96-108) mmol/L Carbon Dioxide (22-29) mmol/L Anion Gap (12-20) BUN (9-16) mg/dL Creatinine (0.5-1.4) mg/dL Estim Creat Clear Calc Estimated GFR Random Glucose (60-115) mg/dL Lactic Acid 1.2 (0.5-2.0) mmol/L Calcium (8.4-10.2) mg/dL Magnesium (1.6-2.6) mg/dL Total Bilirubin (0.0-1.0) mg/dL Direct Bilirubin (0.0-0.5) mg/dL AST (5-37) U/L ALT (0-40) U/L Alkaline Phosphatase (39-117) U/L C-Reactive Protein (< or = 0.50) mg/dL B-Natriuretic Peptide 1059 H (<100) pg/mL Total Protein (6.5-8.0) g/dL Albumin (3.5-5.0) g/dL Imaging Data Arterial ultrasound, right leg: Radiologist's impression: Examination demonstrates biphasic flow with widened waveforms within the common femoral, superficial femoral, and popliteal arteries. No flow is seen within the mid peroneal artery. Blunted, monophasic waveforms appear present within the mid and distal portions of the posterior tibial artery Discharge Plan Discharge Clinical Impression: PAD (peripheral artery disease), Chronic renal failure Patient Disposition: Home, Self-Care Instructions: Peripheral Vascular Disease (ED), Peripheral Artery Disease (ED) Additional Instructions: Call Dr. Swan tomorrow morning after 8:00 a.m. to schedule a follow-up appointment. Llame al Dr. Swan ma?barbara por la ma?barbara despu?s de las 8:00 a. m. para programar jodie tomasa de seguimiento. Prescriptions: No Action (DME) diabetic shoes 9 See Rx Instructions .Route .MEDSUPPLY Qty: 1 0RF Rx Instructions: As directed (DME) Gel mattress overlay Misc See Rx Instructions .Route Qty: 1 0RF Rx Instructions: As directed insulin glargine U-300 conc 300 unit/mL (3 mL) insulin pen 10 unit subcut BID Qty: 6 0RF fenofibrate nanocrystallized 145 mg tablet 145 mg PO DAILY Qty: 30 6RF bumetanide 1 mg tablet 1 mg PO DAILY Qty: 30 6RF ferrous sulfate 325 mg (65 mg iron) tablet 325 mg PO TID 30 Days Qty: 90 6RF mirtazapine 15 mg tablet 15 mg PO BEDTIME 90 Days Qty: 90 0RF Virt-Caps 1 mg capsule 1 cap PO DAILY 90 Days Qty: 90 1RF docusate sodium [Colace] 100 mg capsule 100 mg PO DAILY Qty: 30 0RF acetaminophen [Mapap Arthritis Pain] 650 mg tablet extended release 650 mg PO Q8H PRN (Reason: pain) 30 Days Qty: 90 1RF ergocalciferol (vitamin D2) [Vitamin D2] 1,250 mcg (50,000 unit) capsule 1,250 mcg PO QWEEK 30 Days Qty: 5 0RF atorvastatin 40 mg tablet 40 mg PO BEDTIME 90 Days Qty: 90 1RF amlodipine 5 mg tablet 5 mg PO DAILY Qty: 30 0RF carvedilol 25 mg tablet 1 tab PO BID aspirin 81 mg tablet,delayed release (DR/EC) 1 tab PO DAILY ursodiol 300 mg capsule 1 cap PO BID amlodipine 5 mg tablet 5 mg PO BEDTIME losartan 25 mg tablet 50 mg PO DAILY 90 Days Qty: 90 1RF (DME) Blood Pressure Cuff Misc See Rx Instructions .Route Qty: 1 0RF Rx Instructions: As directed (DME) blood-glucose meter [FreeStyle Lite Meter] Kit See Rx Instructions .Route Qty: 1 0RF Rx Instructions: As directed (DME) FreeStyle Lite Strips Strip See Rx Instructions .Route Qty: 100 11RF Rx Instructions: Use 1 test strip TID (DME) lancets [FreeStyle Lancets] 28 gauge misc See Rx Instructions .Route Qty: 100 10RF Rx Instructions: Use 1 lancet once a day sevelamer carbonate 800 mg tablet 800 mg PO TID tramadol 50 mg tablet 50 mg PO DAILY PRN (Reason: pain) 30 Days Qty: 30 0RF (DME) blood pressure monitor Kit See Rx Instructions .Route Qty: 1 0RF Rx Instructions: As directed losartan 50 mg tablet 50 mg PO DAILY Referrals: August Swan MD [Physician] - 1 day
[2022-01-18 15:21] LABS: B Type Natriuretic Peptide 1059 pg/mL (<100)
[2022-01-18 16:14] LABS: Alanine Aminotransferase 23 U/L (0-40); Albumin Level 3.3 g/dL (3.5-5.0); Alkaline Phosphatase 54 U/L (39-117); Anion Gap 20 (12-20); Aspartate Amino Transferase 26 U/L (5-37); Bilirubin Direct 0.3 mg/dL (0.0-0.5); Bilirubin Total 0.5 mg/dL (0.0-1.0); Blood Urea Nitrogen 47 mg/dL (9-16); C Reactive Protein 1.05 mg/dL (< or = 0.50); Calcium 8.7 mg/dL (8.4-10.2); Carbon Dioxide 26 mmol/L (22-29); Chloride 97 mmol/L (96-108); Creatinine Clr Calc Pharmacy 10.4; Estimated Glomerular Filt Rate 11; Glucose Random 284 mg/dL (60-115); Magnesium 2.1 mg/dL (1.6-2.6); Sodium 139 mmol/L (135-145); Total Protein 7.1 g/dL (6.5-8.0)
[2022-01-18 16:24] LABS: Erythrocyte Sedimentation Rate 43 MM/HR (0-15)
== END 2022-01-18 18:09 | disposition home or self-care (01) ==
PROVIDERS: Physician Assistant; Emergency Provider Emergency Medicine; PCP Internal Medicine
DX: I73.9 Peripheral vascular disease, unspecified (principal); I12.0 Hypertensive chronic kidney disease with stage 5 chronic kidney disease or end stage renal disease; N18.6 End stage renal disease; R06.02 Shortness of breath; R60.0 Localized edema; Z79.899 Other long term (current) drug therapy
CPT/HCPCS: 80048; 80076; 83605; 83735; 83880; 85025; 85610; 85652; 85730; 86140; 87040; 93005; 93926; 99282; 99284

== ENCOUNTER → 2022-01-23 13:43 | Outpatient (BNVA) | payer OTHER, SELFPAY | PROVIDERS: PCP Internal Medicine; Visit Provider Surgery Vascular Surgery | DX: I73.9 Peripheral vascular disease, unspecified (principal); L97.519 Non-pressure chronic ulcer of other part of right foot with unspecified severity; Z89.512 Acquired absence of left leg below knee | CPT/HCPCS: 99212 ==

== ENCOUNTER 2022-03-05 14:50 | Inpatient (IN) | payer OTHER, SELFPAY ==
--- NOTE | ~2022-03-05 | XR_ITS ---
EXAMINATION: XR CHEST CLINICAL INFORMATION: Elevated white blood cell count COMPARISON: 06/01/2021 TECHNIQUE: Frontal view of the chest was obtained. FINDINGS: Median sternotomy wires appear intact. The lungs are hypoexpanded. Mild bronchial wall thickening. No dense consolidation. No edema or effusion. No pneumothorax. The cardiomediastinal silhouette is unchanged, with a calcified aorta. XR/XR chest 1V IMPRESSION: No dense consolidation. Bronchial wall thickening can be seen with a small airways process such as asthma or atypical/viral infection.
--- NOTE | ~2022-03-05 | CT_ITS ---
STUDY PERFORMED: CTA ABDOMEN, PELVIS AND LOWER EXTREMITY RUNOFF WITH CONTRAST HISTORY: Pain in popliteal fossa and calf DESCRIPTION: Routine abdominal aorta and lower extremity runoff CTA protocol with contrast was performed. 100 mL of Omnipaque 350 was administered. 3D POSTPROCESSING: Multiple 3-D angiographic images were processed from the initial data set by the [facility] under concurrent physician supervision. This CT examination was performed using dose optimization techniques as appropriate, variously including the following: *Automated exposure control *Adjustment of mA and/or kV according to patient size (this includes techniques or standardized protocols for targeted exams where dose is matched to indication/reason for exam; i.e. extremities or head) *Use of iterative reconstruction technique DLP: 437 mGycm. COMPARISON: None FINDINGS: VASCULAR: There is diffuse Monckeberg type calcifications involving nearly all vessels. ABDOMINAL AORTA: Marked calcific plaque present throughout the abdominal aorta without dissection or stenosis.. RIGHT LOWER EXTREMITY: - Common Iliac Artery: Calcific plaque. Widely patent. - Internal Iliac Artery: Calcific plaque widely patent. - External Iliac Artery: Calcific plaque widely patent. - Common Femoral Artery: Mild stenosis mid SFA. - Profunda Femoral Artery: Patent. - Superficial Femoral Artery: Tight stenosis at adductor canal (6:1079). - Popliteal Artery: Moderate to marked popliteal disease.. - Tibioperoneal Trunk: Diseased - Posterior Tibial Artery: Difficult to dredge mate patency because of marked calcification but may be patent.. - Peroneal Artery: Markedly diseased with probable areas of tight stenosis (for example 6:1694). - Anterior Tibial Artery: Very diseased and essentially not patent. LEFT LOWER EXTREMITY: - Common Iliac Artery: Calcified plaque. Widely patent.. - Internal Iliac Artery: Calcified plaque, widely patent.. - External Iliac Artery: Calcified plaque, widely patent. - Common Femoral Artery: Mild disease.. - Profunda Femoral Artery: Diffuse calcifications but patent.. - Superficial Femoral Artery: Mild proximal stenosis.. Mild to moderate disease at adductor canal. - Popliteal Artery: Moderate disease. - Below the knee amputation. CELIOMESENTERIC ARTERIES: Celiac origin stenosis. SMA patent. ROBERTO stenosis. Single renal arteries on each side with [id number] proximal disease bilaterally. RENAL ARTERIES: Mild to moderate proximal disease. NONVASCULAR: Lung Bases: Left basilar atelectasis present. Right lung base not included. Liver, Gallbladder and Biliary Tree: The liver is normal in size, shape, and attenuation. No focal hepatic lesion or biliary ductal dilatation is present. Cholelithiasis without cholecystitis Pancreas: Unremarkable. Spleen: Unremarkable. Adrenal Glands: Unremarkable. Kidneys and Ureters: The kidneys are normal in size, shape, and attenuation. No hydronephrosis, hydroureter, or calculi seen. No perinephric stranding. Bladder: Unremarkable. Gastrointestinal Tract: No evidence of bowel obstruction. Abdominal Wall: No significant hernia is appreciated. Small left inguinal hernia containing only fat. Lymph Nodes: No retroperitoneal lymphadenopathy. Pelvic Viscera: The prostate and seminal vesicles are unremarkable. Osseous Structures: Mild degenerative changes present in the spine. Moderate degenerative change seen in the right hip at [id number] amputation on the left CT/CT angio abd aorta runoff IMPRESSION: 1. No aortoiliac inflow disease. 2. On the right, there is SFA disease with moderate to marked popliteal disease with diseased runoff as described above. 3. On the left, mild SFA disease with moderate popliteal disease and below the knee amputation. 4. Because of the marked Monckeberg type calcifications, MR angiography the much more useful to establish vessel patency, especially of the distal runoff. 5. Incidental nonvascular findings as described above.
--- NOTE | ~2022-03-05 | XR_ITS ---
EXAMINATION:XR foot RT min 3V VIEWS ACQUIRED: Frontal lateral and oblique CLINICAL INFORMATION: Reason for Exam toes 1-4 necrotic ? osteo COMPARISON: None available at the time of this dictation. FINDINGS: There is no evidence of acute fracture or dislocation. Intertarsal, tarsometatarsal, metatarsophalangeal and interphalangeal joints are intact. There are heavy vascular calcifications., There are small posterior and inferior calcaneal spurs. XR/XR foot RT min 3V IMPRESSION: * No significant osteolysis to suggest osteomyelitis, however this can developed late in the disease process, MRI could be utilized for further characterization as more sensitive tool if clinically indicated.
--- NOTE | ~2022-03-05 | US_ITS ---
EXAMINATION: NONINVASIVE ASSESSMENT OF THE ARTERIES OF BOTH LOWER EXTREMITIES INCLUDING BILATERAL LOWER EXTREMITY DUPLEX. CLINICAL INFORMATION: Right lower extremity severe pain, discoloration COMPARISON: Arterial duplex on 01/18/2022 TECHNIQUE: duplex Doppler techniques with wave form analysis and measurement of velocities in the common femoral, profunda femoral, superficial femoral, popliteal, tibial and peroneal arteries. The study was performed only at rest. FINDINGS: RIGHT LEG Common femoral artery: 113 cm/s, monophasic Profunda femoris artery: 107 cm/s, monophasic Superficial femoral artery (proximal): 107 cm/s, Multiphasic Superficial femoral artery (mid): 47 cm/s, Multiphasic Superficial femoral artery (distal): 72 cm/s, monophasic Proximal Popliteal artery: 48 cm/s, monophasic Mid posterior tibial artery: 43 cm/s, monophasic Extensive atherosclerotic calcification throughout the right lower extremity. US/US arterial duplex LE RT IMPRESSION: Monophasic flow throughout the bilateral lower extremities suggesting inflow disease. Significant atherosclerotic disease throughout the right lower extremity.
--- NOTE | ~2022-03-05 | US_ITS ---
EXAMINATION: US VENOUS ULTRASOUND WITH DOPPLER LOWER EXTREMITY, RIGHT CLINICAL INFORMATION: Edema. COMPARISON: None TECHNIQUE: Ultrasound of the deep veins is performed from the hip to the calf with compression sonography and color and pulse Doppler assessment. Spectral analysis with color-flow imaging is performed. FINDINGS: There is normal venous compression and respiratory variation and augmented flow. The visualized common femoral vein, superficial femoral vein, profunda femoral vein, popliteal vein, and the trifurcation region shows no evidence of deep venous thrombosis. Within the calf the peroneal vein is not not well visualized. Vascular flow is demonstrated however the posterior tibial vein. There is no significant popliteal fossa cyst. There is superficial vein thrombus in the greater saphenous vein to the superficial femoral vein junction. If the patient's symptoms persist, followup ultrasound in 5 days 7 days might be of value to exclude proximal propagation from a non-visualized calf vein. US/US venous duplex LE RT IMPRESSION: No DVT demonstrated in the right lower extremity.
--- NOTE | ~2022-03-05 | CT_ITS ---
EXAMINATION: CT HEAD WITHOUT CONTRAST CLINICAL INFORMATION: Altered mental status. COMPARISON: None TECHNIQUE: Contiguous axial imaging was performed from the skull base to vertex without intravenous administration of contrast. This CT examination was performed using dose optimization techniques as appropriate, variously including the following: *Automated exposure control *Adjustment of mA and/or kV according to patient size (this includes techniques or standardized protocols for targeted exams where dose is matched to indication/reason for exam; i.e. extremities or head) *Use of iterative reconstruction technique Dose: 670 mGy-cm FINDINGS: There is no evidence of acute intracranial hemorrhage or territorial infarction. No abnormal mass-effect or midline shift is seen. Ying to white matter differentiation is well preserved. No extra axial fluid collections. Mild enlargement of the ventricles, sulci, and extra-axial CSF spaces is indicative of parenchymal volume loss. There is a small focus of cortical encephalomalacia in the left para midline parietal lobe posteriorly as well as focal encephalomalacia in the right cerebellum, potentially due to prior infarcts. Multiple areas of hypoattenuation in the subcortical and periventricular white matter are most consistent with chronic microangiopathic changes. Calcific atherosclerosis is present within the cavernous segments of the internal carotid arteries. There is complete opacification in the imaged portion of the right maxillary sinus. There is partial opacification of the imaged portion of the left maxillary sinus. Paranasal sinuses otherwise clear. Minimal pneumatization of the mastoids. Middle ears are clear. Globes are aphakic. No acute osseous abnormalities are identified. Calvarium is intact. Marked calcific atherosclerosis in the superficial arteries at the scalp and face. CT/CT head/brain wo IV con IMPRESSION: 1. No acute intracranial pathology. 2. Mild cerebral atrophy and moderate chronic white matter microangiopathy. Small foci of encephalomalacia in the left parietal lobe and right cerebellum are most likely due to prior infarcts. 3. Maxillary sinus mucosal disease with complete opacification of the imaged portion of the right maxillary sinus and partial opacification of the left maxillary sinus.
[2022-03-05 15:08] VITALS: BP 131/78; BP 156/50; PULSE 71; PULSE 80; RESP 16; TEMP 37.1; O2SAT 95; O2SAT 97; BMI 26.0
--- NOTE | 2022-03-05 16:46 | ED.EXTPRO ---
HPI - Extremity Problem General Chief complaint: Extremity Problem Stated complaint: RLE PAIN/SWELLING, (LBKA AMP) Time Seen by Provider: 03/05/22 16:07 Source: patient Mode of arrival: ambulatory Limitations: other (Poor historian) History of Present Illness HPI Narrative: 76-year-old male past medical history significant for end-stage renal disease on hemodialysis Saturday, Saturday, last dialyzed today prior to arrival, unilateral BKA, P 80, diabetes, anemia, hyperlipidemia, microalbuminuria presenting to the emergency department complaints of wound to right lower extremity, particularly the great toe, notices that his toes are now becoming black and discolored. Also complaining of right lower extremity swelling worsening over the past few days. He tells me all these symptoms have been going on for 3 days however worsening. Patient tells me he has decreased sensation to his right toes. He tells me somebody comes to his house and does dressing changes on his right toe. Patient denies fevers, chills, chest pain, shortness of breath, nausea, vomiting, abdominal pain, headache, vision changes and dizziness. Related Data Home Medications Medication Instructions Recorded Confirmed sevelamer carbonate 800 mg tablet 800 mg PO TID 01/22/20 03/05/22 amlodipine 5 mg tablet 5 mg PO BEDTIME 06/01/21 03/05/22 aspirin 81 mg tablet,delayed 1 tab PO DAILY 06/01/21 03/05/22 release carvedilol 25 mg tablet 1 tab PO BID 06/01/21 03/05/22 ursodiol 300 mg capsule 1 cap PO BID 06/01/21 03/05/22 losartan 100 mg tablet 100 mg PO DAILY 01/23/22 03/05/22 Previous Rx's Medication Instructions Recorded diabetic shoes #1 ea 08/15/20 blood sugar diagnostic (FreeStyle #100 ea 04/04/21 Lite Strips) blood-glucose meter (FreeStyle #1 ea 04/04/21 Lite Meter kit) lancets 28 gauge (FreeStyle #100 ea 04/04/21 Lancets) miscellaneous medical supply #1 ea 04/04/21 (Blood Pressure Cuff) Gel mattress overlay #1 ea 04/17/21 insulin glargine U-300 conc 300 10 unit (0.0333 mL) subcut BID #6 04/21/21 unit/mL (3 mL) subcutaneous pen mL blood pressure monitor #1 ea 05/02/21 vitamin B complex and vitamin C 1 cap PO DAILY 90 days #90 caps 10/28/21 no.20-folic acid 1 mg capsule (Virt-Caps) docusate sodium 100 mg capsule 100 mg PO DAILY #30 caps 11/04/21 (Colace) atorvastatin 40 mg tablet 40 mg PO BEDTIME 90 days #90 tabs 12/28/21 acetaminophen 650 mg 650 mg PO Q8H PRN pain 30 days #90 01/28/22 tablet,extended release (Mapap tabs Arthritis Pain) ergocalciferol (vitamin D2) 1,250 1,250 mcg PO QWEEK 30 days #5 caps 01/30/22 mcg (50,000 unit) capsule (Vitamin D2) bumetanide 1 mg tablet 1 mg PO DAILY #30 tabs 02/27/22 fenofibrate nanocrystallized 145 145 mg PO DAILY #30 tabs 02/27/22 mg tablet ferrous sulfate 325 mg (65 mg 325 mg PO TID 30 days #90 tabs 02/27/22 iron) tablet Allergies Allergy/AdvReac Type Severity Reaction Status Date / Time lisinopril Allergy Intermediate hyperkalemi Verified 01/23/22 14:01 a lidocaine [From LIDOPRIL] Allergy Mild COUGH Verified 01/23/22 14:01 prilocaine [From LIDOPRIL] Allergy Mild COUGH Verified 01/23/22 14:01 canagliflozin [Invokana] AdvReac Mild back pain Verified 01/23/22 14:01 Hydralazine-HCTZ Allergy Unknown Unknown Uncoded 01/11/22 10:25 Review of Systems Review of Systems: Constitutional : No Weight loss, No Fever, No Chills, No Fatigue, No Malaise ENT/Mouth : No sore throat, No Rhinorrhea Eyes: No Eye Pain, No Swelling, No Redness Cardiovascular : No Chest Pain, No SOB, No Dyspnea on Exertion, No Orthopnea, No Edema, No Palpitations Respiratory : No Cough, No Sputum, No Wheezing Gastrointestinal : No Nausea, No Vomiting, No Diarrhea, No Constipation, No abdominal Pain, No Hematochezia, No Melena Genitourinary : No Dysuria, No Urinary Frequency, No Hematuria, Musculoskeletal : No joint pain, No Myalgias, No Joint Swelling, + RLE swelling Skin : No Skin Lesions, No rash, + wound Neuro : No Weakness, No Numbness, No Dizziness, No Headache Psych : No Anxiety/Panic, No Depression All other systems reviewed and are negative Yes all other systems are reviewed and are negative [facility] Past Medical History Attestation statement: The following information was validated with the patient. Source: old records reviewed and nursing notes reviewed Medical History Anemia in chronic kidney disease Below-knee amputation of left lower extremity Diabetes Diabetes mellitus, with long-term current use of insulin Diarrhea End stage renal disease End-stage renal disease on hemodialysis High cholesterol History of leg amputation Hypertension Microalbuminuria Mixed hyperlipidemia PAD (peripheral artery disease) Preoperative cardiovascular examination Surgical History History of eye surgery History of laminectomy History of surgery History of surgery on arm S/P CABG x 4 S/P unilateral BKA (below knee amputation) Family History Family History Father Myocardial infarction Mother No problems noted. Social History Social History Household Members: Children Housing: House Do you presently have visiting nurse or other home services: Yes (daughter/son paraeducator) Alcohol intake: never Patient Tobacco Use Status: Never used Tobacco Smoked in Last 30 Days: No e-Cigarette/Vaping Use: Never Used Second Hand Smoke Exposure: No Use of substances other than those prescribed or required for medical reasons: No Advance Directives: Yes Advance Directives on File: Yes Advance Directives Date on File: 06/15/21 service: No Current occupational status: retired and disabled Cognitive needs: Yes Hearing needs: No Vision needs: No Physical Exam Vital Signs: Vital Signs: Last Vital Signs Temp 98.2 F 03/05/22 22:06 Pulse 80 03/05/22 22:06 Resp 12 03/05/22 22:06 BP 110/59 L 03/05/22 22:06 Pulse Ox 93 03/05/22 22:06 O2 Del Method 03/05/22 22:06 BMI result Body Mass Index 26.0 vss Appearance: Alert.? Oriented X3.? No acute distress.? Head: Normocephalic, atraumatic, no step-offs or deformities Eyes: Pupils equal, round and reactive to light.? ENT: Pharynx normal.? Neck: Normal inspection.? Neck supple.? CVS: Normal heart rate and rhythm.? Pulses normal.? Respiratory: No respiratory distress.? Breath sounds normal.? Abdomen: Soft and nontender.? Skin: Skin warm and dry.? Normal skin color.? Normal skin turgor.? Extremities: No right-sided calf tenderness to palpation, negative Quinn to the right side. 5/5 strength to bilateral upper extremities. Left-sided below-knee amputation. Right lower extremity with 2+ nonpitting edema. Patient is noted to have a wound that is open to his right great toe, digits 1 through 4 with overlying black/necrotic looking skin. No dorsalis pedis, anterior tibialis and posterior tibialis pulse on the right.. Back: No midline tenderness, no C-spine tenderness, full range of motion, no CVA tenderness bilaterally Neuro: Oriented X 3.? No motor deficit.? No sensory deficit. CN 2-12 intact Course Reevaluation(s) Reevaluation #1: CBC with significant leukocytosis and normocytic anemia. Chemistry pending. I did discuss this case with vascular Dr. Swan who recommends CTA with runoff which has been ordered at this time. Time: 18:14 Reevaluation #2: Patient was unclear on whether not he was on anticoagulation. It appears as though he is only on baby aspirin. Will obtain PT INR and start heparin at this time discussed this case with my attending. Pending CTA aorta with runoff. Time: 21:39 Reevaluation #3: Results from CTA aorta with runoff discussed with my attending patient was started on heparin. Arterial duplex with monophasic flow through the bilateral lower extremities time adjusting inflow disease, significant arthrosclerotic disease throughout the right lower extremity. No DVT in right lower extremity. Patient will be admitted to the hospitalist team. Time: 23:55 Medications Administered Discontinued Medications Generic Name Dose Route Start Last Admin Trade Name Freq PRN Reason Stop Dose Admin Heparin Sodium (Porcine) 5,700 unit 03/05/22 21:39 03/05/22 21:47 Heparin Sodium,Porcine 5,000 Unit/Ml Vial 80 unit/kg (5700 unit) 03/05/22 21:40 5,700 unit IVPUSH Administration ONCE ONE Piperacillin Sod/Tazobactam 50 mls @ 100 mls/hr 03/05/22 18:06 03/05/22 20:14 Sod 3.375 gm/ Sodium Chloride IV 03/05/22 18:35 Infused ONCE ONE Infusion Iohexol 100 ml 03/05/22 19:43 03/05/22 19:44 Iohexol 350 Mg/Ml 100 Ml Infus..Btl IV 03/05/22 19:44 100 ml ONCE ONE Administration Medical Decision Making Medical Decision Making [facility] Narrative: 1654 76-year-old male presents with right lower extremity swelling and progressively worsening wound to the right toes x3 days Physical exam significant for No right-sided calf tenderness to palpation, negative Quinn to the right side. 5/5 strength to bilateral upper extremities. Left-sided below-knee amputation. Right lower extremity with 2+ nonpitting edema. Patient is noted to have a wound that is open to his right great toe, digits 1 through 4 with overlying black/necrotic looking skin. No dorsalis pedis, anterior tibialis and posterior tibialis pulse on the right. Concerns for possible chronic wound versus osteomyelitis versus arterial occlusion vs gangrene. Will rule out venous and arterial occlusion. Plan at this time labs, imaging, inflammatory markers, UA, arterial and venous duplex. Blood cultures lactic acid an x-ray. Differential Diagnosis Differential Diagnoses: The differential diagnosis associated with the presentation includes Concerns for possible chronic wound versus osteomyelitis versus gangrene. Will rule out venous and arterial occlusion. Admission/Observation Consideration of admission/observation: Escalation of care including admission/observation considered Consult Healthcare Provider Management of the patient was discussed with: Hospitalist and Clay Temperer Lab Data [facility] Lab Attestation statement: I reviewed the patient's lab results. Result Diagrams: 03/05/22 17:23 03/05/22 18:14 Labs: Lab Results 03/05/22 03/05/22 03/05/22 Range/Units 17:23 17: 17: WBC 16.1 H (4.8-10.8) X10*3/uL RBC 2.85 L D (4.60-5.80) X10*6/uL Hgb 8.8 L D (14.0-18.0) g/dl Hct 26.7 L D (42.0-52.0) % MCV 93.7 (80.0-98.0) fL MCH 30.9 (27.0-33.0) pg MCHC 33.0 (31.0-36.0) g/dl RDW 15.2 (11.0-16.0) % Plt Count 260 D (160-400) X10*3/uL MPV 12.2 (9.4-12.4) fL Immature Gran % (Auto) 0.6 H (0.0-0.4) % Neut % (Auto) 91.3 H (45-73) % Lymph % (Auto) 3.0 L (20-40) % [place] % (Auto) 3.2 (2-11) % Eos % (Auto) 1.5 (0-4) % Baso % (Auto) 0.4 (0-2) % Lymph # (Auto) 0.5 L (1.2-4.9) X10*3/uL [place] # (Auto) 0.5 (0.1-1.2) X10*3/uL Eos # (Auto) 0.2 (0.0-0.4) X10*3/uL Baso # (Auto) 0.1 (0.0-0.2) X10*3/uL Abs Immat Gran (auto) 0.09 H (0.00-0.03) X10*3/uL Absolute Neuts (auto) 14.7 H (2.0-8.3) x10*3/uL Absolute Nucleated RBC 0.000 (0.0-0.012) X10*3/uL Nucleated RBC % (auto) 0.0 (0.0-0.2) /100WBC Smear Tech's Comments VERIFIED ESR 111 H (0-15) MM/HR Sodium (135-145) mmol/L Potassium (3.3-5.1) mmol/L Chloride (96-108) mmol/L Carbon Dioxide (22-29) mmol/L Anion Gap (12-20) BUN (9-16) mg/dL Creatinine (0.5-1.4) mg/dL Estim Creat Clear Calc Estimated GFR Random Glucose (60-115) mg/dL Lactic Acid 0.9 (0.5-2.0) mmol/L Calcium (8.4-10.2) mg/dL Magnesium (1.6-2.6) mg/dL Total Bilirubin (0.0-1.0) mg/dL AST (5-37) U/L ALT (0-40) U/L Alkaline Phosphatase (39-117) U/L C-Reactive Protein (< or = 0.50) mg/dL Total Protein (6.5-8.0) g/dL Albumin (3.5-5.0) g/dL COVID-19 (ZANE) (Negative) COVID-19 Clin Com 03/05/22 03/05/22 Range/Units 17:23 18:14 WBC (4.8-10.8) X10*3/uL RBC (4.60-5.80) X10*6/uL Hgb (14.0-18.0) g/dl Hct (42.0-52.0) % MCV (80.0-98.0) fL MCH (27.0-33.0) pg MCHC (31.0-36.0) g/dl RDW (11.0-16.0) % Plt Count (160-400) X10*3/uL MPV (9.4-12.4) fL Immature Gran % (Auto) (0.0-0.4) % Neut % (Auto) (45-73) % Lymph % (Auto) (20-40) % [place] % (Auto) (2-11) % Eos % (Auto) (0-4) % Baso % (Auto) (0-2) % Lymph # (Auto) (1.2-4.9) X10*3/uL [place] # (Auto) (0.1-1.2) X10*3/uL Eos # (Auto) (0.0-0.4) X10*3/uL Baso # (Auto) (0.0-0.2) X10*3/uL Abs Immat Gran (auto) (0.00-0.03) X10*3/uL Absolute Neuts (auto) (2.0-8.3) x10*3/uL Absolute Nucleated RBC (0.0-0.012) X10*3/uL Nucleated RBC % (auto) (0.0-0.2) /100WBC Smear Tech's Comments ESR (0-15) MM/HR Sodium 138 (135-145) mmol/L Potassium 3.7 (3.3-5.1) mmol/L Chloride 96 (96-108) mmol/L Carbon Dioxide 30 H (22-29) mmol/L Anion Gap 16 (12-20) BUN 24 H (9-16) mg/dL Creatinine 2.94 H (0.5-1.4) mg/dL Estim Creat Clear Calc 18.8 Estimated GFR 21 Random Glucose 108 (60-115) mg/dL Lactic Acid (0.5-2.0) mmol/L Calcium 9.1 (8.4-10.2) mg/dL Magnesium 1.9 (1.6-2.6) mg/dL Total Bilirubin 0.7 (0.0-1.0) mg/dL AST 32 (5-37) U/L ALT 21 (0-40) U/L Alkaline Phosphatase 61 (39-117) U/L C-Reactive Protein 15.45 H (< or = 0.50) mg/dL Total Protein 6.9 (6.5-8.0) g/dL Albumin 3.0 L (3.5-5.0) g/dL COVID-19 (ZANE) Negative (Negative) COVID-19 Clin Com See Note Independent Interpretation I performed an independent interpretation of an: EKG and Plain X-Ray Radiology Impression Discussion of test interpretation with radiology: I have reviewed the radiologist's reading. Independent Historian Clinical information obtained from an independent historian. History obtained from or confirmed by: Other (Self poor historian) External Record Review External record reviewed: Inpatient record, Office record, Outpatient record, Prior outpatient labs, Prior outpatient radiology and Primary care record Tests considered The following testing was considered but not selected: X-ray of right foot, venous and arterial duplex of right lower extremity. Considered CT scan however not needed at this time Chronic Conditions Patient?s care impacted by: Diabetes and Hypertension Core Measures AMI core measures followed: Yes Measure exclusions: not indicated Critical Care Time Critical Care Time Critical Care Time: Yes Total Critical Care Time: 40 Attestation: I attest to this time spent taking care of the patient, obtaining history, physical, reviewing labs, imaging, speaking to my attending, speaking to specialist. Discharge Plan Discharge Clinical Impression: Wet gangrene, Open wound, lower leg Patient Disposition: Admitted As Inpatient
[2022-03-05 17:39] LABS: Basophils Absolute Auto 0.1 X10*3/uL (0.0-0.2); Basophils Percent Auto 0.4 % (0-2); Eosinophils Absolute Auto 0.2 X10*3/uL (0.0-0.4); Eosinophils Percent Auto 1.5 % (0-4); Hematocrit 26.7 % (42.0-52.0); Hemoglobin 8.8 g/dl (14.0-18.0); Imm Gran Abs Auto 0.09 X10*3/uL (0.00-0.03); Imm Gran Pct Auto 0.6 % (0.0-0.4); Lymphocytes Absolute Auto 0.5 X10*3/uL (1.2-4.9); MANUAL DIFF FLAG SCAN; Mean Corpuscular Hemoglobin 30.9 pg (27.0-33.0); Mean Corpuscular Volume 93.7 fL (80.0-98.0); Mean Platelet Volume 12.2 fL (9.4-12.4); Monocytes Absolute Auto 0.5 X10*3/uL (0.1-1.2); Monocytes Percent Auto 3.2 % (2-11); Neutrophils Absolute Auto 14.7 x10*3/uL (2.0-8.3); Neutrophils Percent Auto 91.3 % (45-73); Platelet Count 260 X10*3/uL (160-400); Red Blood Count 2.85 X10*6/uL (4.60-5.80); Red Cell Distribution Width 15.2 % (11.0-16.0); SCAN SMEAR FLAG 1; White Blood Count 16.1 X10*3/uL (4.8-10.8)
[2022-03-05 17:51] LABS: Lactic Acid 0.9 mmol/L (0.5-2.0)
[2022-03-05 17:54] LABS: COVID-19 Test Negative (Negative); IDNOW Serial# BCCEAD1C
[2022-03-05 18:16] LABS: SLIDE REVIEW VERIFIED
[2022-03-05 18:36] LABS: Erythrocyte Sedimentation Rate 111 MM/HR (0-15)
[2022-03-05 18:46] VITALS: BP 166/32; PULSE 77; RESP 16
[2022-03-05 18:52] LABS: Alanine Aminotransferase 21 U/L (0-40); Alkaline Phosphatase 61 U/L (39-117); Anion Gap 16 (12-20); Aspartate Amino Transferase 32 U/L (5-37); Bilirubin Total 0.7 mg/dL (0.0-1.0); Blood Urea Nitrogen 24 mg/dL (9-16); C Reactive Protein 15.45 mg/dL (< or = 0.50); Calcium 9.1 mg/dL (8.4-10.2); Carbon Dioxide 30 mmol/L (22-29); Chloride 96 mmol/L (96-108); Creatinine Clr Calc Pharmacy 18.8; Estimated Glomerular Filt Rate 21; Glucose Random 108 mg/dL (60-115); Magnesium 1.9 mg/dL (1.6-2.6); Potassium 3.7 mmol/L (3.3-5.1); Sodium 138 mmol/L (135-145); Total Protein 6.9 g/dL (6.5-8.0)
[2022-03-05 19:05] VITALS: O2SAT 96
--- NOTE | 2022-03-05 19:28 | PC.NURSE ---
Assumed care for pt. Pt currently in Ct-Scan. Will medicated as ordered once pt returns.
[2022-03-05] MEDS: Piperacillin Sodium/Tazobactam 3.375 GM in 0.9 % Sodium Chloride 50 ML IV (19:44)
[2022-03-05] MEDS: iohexoL 350 MG/ML 100 ML INFUS..BTL IV (19:44)
[2022-03-05 19:49] VITALS: BP 136/34; PULSE 79; RESP 14; TEMP 36.7; O2SAT 95
--- NOTE | 2022-03-05 19:53 | PC.NURSE ---
Pt aox3 in no apparent distress. Breaths are even and unlabored. Medicated with antibiotics as ordered. Pt reports receiving hemodialysis earlier today. BKA of left lower extremity. Right lower extremity wound and edema noted. Right foot dark and cold to touch. Unable to palpate pedal pulse at this time. Pt able to move lower extremity with minimal difficulty. CTA with runoff performed and awaiting results. Pt aware of plan of care.
[2022-03-05] MEDS: Heparin Sodium,Porcine 5,000 UNIT/ML VIAL 5700 UNIT IVPUSH (21:47)
[2022-03-05 22:04] VITALS: BMI 26.0
--- NOTE | 2022-03-05 22:04 | PHA.MEDREC ---
Pharmacy Consult ? Medication Reconciliation Pharmacy has completed the medication reconciliation. used senior loan officer. Patient was poor historian, told to call his pharmacy then had no idea what pharmacy he picks up from. [facility]. Left insulin unconfirmed as it is fairly old.
[2022-03-05 22:06] VITALS: BP 110/59; PULSE 80; RESP 12; TEMP 36.8; O2SAT 93
[2022-03-06] VITALS (7 sets, daily range): BP systolic 133–164; BP diastolic 23–60; PULSE 65–74; RESP 10–18; TEMP 36.4–37; O2SAT 92–99
[2022-03-06 00:17] LABS: INTERNATIONAL NORM RATIO 1.3 (0.9-1.1); Prothrombin Time 15.3 SEC (10.0-13.1)
[2022-03-06 00:20] LABS: PTT Heparin Drip 62.7 SEC (53-77.9)
--- NOTE | 2022-03-06 00:39 | P.HPHOSP_ITS ---
History of Present Illness Date of Service: 03/06/22 Chief Complaint: foot ulcer this is a 76-year-old male with past medical history of ESRD on dialysis MWF, peripheral vascular disease, hypertension, osteoarthritis, as well as left BKA presents the hospital with complaint right foot gangrene patient is mostly Congolese speaking with some Beninese, history is obtained mostly from [place] has no manager property is available at this time. Patient reports that he noticed skin changes of his right foot about 2 months ago, worsened within the past week, denies any pain, no fever or chills, no chest pain, no abdominal pain, no nausea or vomiting, no diarrhea constipation, no urinary symptoms. on arrival to the ED patient found to be hemodynamically stable with no significant abnormal vitals Labs are significant for WBC count of 16.1, hemoglobin of 8.8 which is close to his baseline, hematocrit 26.7, INR of 1.3, creatinine of 2.94, CRP of 16.4, venous duplex negative for DVT arterial duplex shows monophasic flow throughout the bilateral lower extremities suggesting inflow disease significant atherosclerotic disease throughout the right lower extremity aorta with runoff CTA shows no a order iliac inflow disease, on the right there is SFA disease with moderate to marked popliteal disease with diseased runoff Patient's case was discussed with vascular surgery, patient will be started on heparin drip and admitted for further management Review of Systems Review of Systems: Yes all other systems are reviewed and are negative REPLACED BY [facility] Medical History Anemia in chronic kidney disease Below-knee amputation of left lower extremity Diabetes Diabetes mellitus, with long-term current use of insulin Diarrhea End stage renal disease End-stage renal disease on hemodialysis High cholesterol History of leg amputation Hypertension Microalbuminuria Mixed hyperlipidemia PAD (peripheral artery disease) Preoperative cardiovascular examination Family History Father Myocardial infarction Mother No problems noted. Surgical History History of eye surgery History of laminectomy History of surgery History of surgery on arm S/P CABG x 4 S/P unilateral BKA (below knee amputation) Social History Household Members: Children Housing: House Do you presently have visiting nurse or other home services: Yes (daughter/son heel sewer) Alcohol intake: never Patient Tobacco Use Status: Never used Tobacco Smoked in Last 30 Days: No e-Cigarette/Vaping Use: Never Used Second Hand Smoke Exposure: No Use of substances other than those prescribed or required for medical reasons: No Advance Directives: Yes Advance Directives on File: Yes Advance Directives Date on File: 06/15/21 service: No Current occupational status: retired and disabled Cognitive needs: Yes Hearing needs: No Vision needs: No Meds Allergies Allergy/AdvReac Type Severity Reaction Status Date / Time lisinopril Allergy Intermediate hyperkalemi Verified 01/23/22 14:01 a lidocaine [From LIDOPRIL] Allergy Mild COUGH Verified 01/23/22 14:01 prilocaine [From LIDOPRIL] Allergy Mild COUGH Verified 01/23/22 14:01 canagliflozin [Invokana] AdvReac Mild back pain Verified 01/23/22 14:01 Hydralazine-HCTZ Allergy Unknown Unknown Uncoded 01/11/22 10:25 Active Medications: Current Medications Heparin Sodium (Porcine) (Heparin Sodium,Porcine 5,000 Unit/Ml Vial) 2,800 unit 40 unit/kg (2800 unit) IVPUSH PROTOCOL BOLUS PRN; Protocol PRN Reason: 40 unit/kg - Heparin Protocol Heparin Sodium (Porcine) (Heparin Sodium,Porcine 5,000 Unit/Ml Vial) 5,700 unit 80 unit/kg (5700 unit) IVPUSH PROTOCOL BOLUS PRN; Protocol PRN Reason: 80 unit/kg - Heparin Protocol Heparin Sodium/Sodium Chloride (Heparin Sodium,Porcine/1/2ns) 25,000 unit in 250 mls @ 0 mls/hr IVCONT .Q0M [facility]; Protocol Pharmacy Consult (Consult Rx Perform Med Rec) 1 each MISCELLANE ONCE PRN PRN Reason: Consult order Home Medications Medication Instructions Recorded Confirmed Last Taken Type sevelamer carbonate 800 mg tablet 800 mg PO TID 01/22/20 03/05/22 06/01/21 History amlodipine 5 mg tablet 5 mg PO BEDTIME 06/01/21 03/05/22 05/31/21 History aspirin 81 mg tablet,delayed 1 tab PO DAILY 06/01/21 03/05/22 06/01/21 History release carvedilol 25 mg tablet 1 tab PO BID 0303/05/22 06/01/21 History ursodiol 300 mg capsule 1 cap PO BID 06/01/21 03/05/22 06/01/21 History losartan 100 mg tablet 100 mg PO DAILY 01/23/22 03/05/22 Unknown History Physical Exam Vital Signs and Narrative: Vital Signs: Last Vital Signs Temp 97.7 F 03/06/22 00:31 Pulse 74 03/06/22 00:31 Resp 17 03/06/22 00:31 BP 164/53 H 03/06/22 00:31 Pulse Ox 93 03/05/22 22:06 O2 Del Method 03/06/22 00:31 BMI result Body Mass Index 26.0 Const: General: cooperative and no acute distress Orientation/consciousness: patient oriented x3 Eyes: General: appearance normal, both eyes and all related structures Pupils: Equal, round and reactive pupils present Resp: Effort & Inspection: normal respiratory effort Auscultation: clear to auscultation bilaterally Cardio: Rate: regular rate Rhythm: regular rhythm GI: Palpation (GI): Soft to palpation Auscultation: normal bowel sounds Neuro: General: patient oriented x3 Cranial nerves: Yes Equal, round and reactive pupils present Cognition (Neuro): normal cognition Extrem: Other: below-knee amputation on the left right gangrenous foot Results Labs CBC and Chem 7: 03/05/22 17:23 03/05/22 18:14 Labs: Laboratory Results - last 24 hr 03/05/22 03/05/22 03/05/22 17:23 17:23 17:23 MCV 93.7 MCH 30.9 MCHC 33.0 RDW 15.2 Plt Count 260 D MPV 12.2 Immature Gran % (Auto) 0.6 H Neut % (Auto) 91.3 H Lymph % (Auto) 3.0 L [place] % (Auto) 3.2 Eos % (Auto) 1.5 Baso % (Auto) 0.4 Lymph # (Auto) 0.5 L [place] # (Auto) 0.5 Eos # (Auto) 0.2 Baso # (Auto) 0.1 Abs Immat Gran (auto) 0.09 H Absolute Neuts (auto) 14.7 H Absolute Nucleated RBC 0.000 Nucleated RBC % (auto) 0.0 Smear Tech's Comments VERIFIED ESR 111 H PT INR aPTT Heparin Protocol Anion Gap Estim Creat Clear Calc Estimated GFR Random Glucose Lactic Acid 0.9 Calcium Magnesium Total Bilirubin AST ALT Alkaline Phosphatase C-Reactive Protein Total Protein Albumin COVID-19 ([facility]) COVID-19 Clin Com 03/05/22 03/05/22 03/05/22 17:23 18:14 23:59 MCV MCH MCHC RDW Plt Count MPV Immature Gran % (Auto) Neut % (Auto) Lymph % (Auto) [place] % (Auto) Eos % (Auto) Baso % (Auto) Lymph # (Auto) [place] # (Auto) Eos # (Auto) Baso # (Auto) Abs Immat Gran (auto) Absolute Neuts (auto) Absolute Nucleated RBC Nucleated RBC % (auto) Smear Tech's Comments ESR PT 15.3 H INR 1.3 H aPTT Heparin Protocol 62.7 Anion Gap 16 Estim Creat Clear Calc 18.8 Estimated GFR 21 Random Glucose 108 Lactic Acid Calcium 9.1 Magnesium 1.9 Total Bilirubin 0.7 AST 32 ALT 21 Alkaline Phosphatase 61 C-Reactive Protein 15.45 H Total Protein 6.9 Albumin 3.0 L COVID-19 ([facility]) Negative COVID-19 Clin Com See Note Imaging Radiologist's Impressions: Impressions Foot X-Ray 03/05/22 16:55 IMPRESSION: * No significant osteolysis to suggest osteomyelitis, however this can developed late in the disease process, MRI could be utilized for further characterization as more sensitive tool if clinically indicated. Venous Duplex 03/05/22 18:26 IMPRESSION: No DVT demonstrated in the right lower extremity. Duplex Scan Lower Extremity Artery 03/05/22 18:47 IMPRESSION: Monophasic flow throughout the bilateral lower extremities suggesting inflow disease. Significant atherosclerotic disease throughout the right lower extremity. Aorta w/Runoff CTA 03/05/22 19:30 IMPRESSION: 1. No aortoiliac inflow disease. 2. On the right, there is SFA disease with moderate to marked popliteal disease with diseased runoff as described above. 3. On the left, mild SFA disease with moderate popliteal disease and below the knee amputation. 4. Because of the marked Monckeberg type calcifications, MR angiography the much more useful to establish vessel patency, especially of the distal runoff. 5. Incidental nonvascular findings as described above. Assessment and Plan (1) Wet gangrene: Status: Acute (2) Open wound, lower leg: Status: Acute Plan 76-year-old male with past medical history of peripheral vascular disease, diabetes, ESRD on dialysis, presents to the hospital with complaints of right foot infection found to have gangrenous foot. # Wet gangrene - of right foot - aorta with runoff CT angio shows popliteal disease with disease runoff - case was discussed with vascular surgery, patient started on heparin drip - will likely need surgical intervention - given was gangrene, as well as open wound patient will be on IV antibiotics - follow cultures # open wound - right foot - dorsal surface - will treat with IV antibiotics - follow cultures # diabetes - low-dose sliding scale insulin - diabetic diet #PAD - continue Statin, heparin ggt # HLD - continue statin # ESRD - on dialysis MWF - Nephro consulted DVT PPX: heparin patient require minimum 2 nights inpatient hospital stay for the above reasons Time Spent With Patient Time: Total time managing care of this patient today ____ minutes. Quality Stroke Does the patient have a stroke diagnosis?: No VTE Prior VTE?: No VTE Risk Level:: Medical - moderate - high VTE Device Contraindication: Treatment Not Indicated VTE Drug Contraindication: N/A - Med Ordered
[2022-03-06] MEDS: Heparin Sodium,Porcine/1/2NS 25,000 UNIT/250 ML IV.SOLN 9.94 UNIT IVCONT (00:46)
--- NOTE | 2022-03-06 02:33 | PC.NURSE ---
Called pharmacy regarding ab ordered that has not been verified. Pharmacy changed the dose and verify it to be administered.
[2022-03-06] MEDS: Morphine Sulfate 4 MG/ML CARTRIDGE IVPUSH (02:47)
[2022-03-06] MEDS: Piperacillin Sodium/Tazobactam 2.25 GM in 0.9 % Sodium Chloride 50 ML IV ×4 (02:47→21:56)
[2022-03-06 04:57] LABS: MANUAL DIFF FLAG NO
[2022-03-06 04:59] LABS: Basophils Absolute Auto 0.1 X10*3/uL (0.0-0.2); Basophils Percent Auto 0.6 % (0-2); Eosinophils Absolute Auto 0.3 X10*3/uL (0.0-0.4); Eosinophils Percent Auto 2.2 % (0-4); Hematocrit 25.5 % (42.0-52.0); Hemoglobin 8.3 g/dl (14.0-18.0); Imm Gran Abs Auto 0.06 X10*3/uL (0.00-0.03); Imm Gran Pct Auto 0.4 % (0.0-0.4); Lymphocytes Absolute Auto 0.7 X10*3/uL (1.2-4.9); Lymphocytes Percent Auto 4.9 % (20-40); Mean Corpuscular HGB Conc 32.5 g/dl (31.0-36.0); Mean Corpuscular Hemoglobin 31.3 pg (27.0-33.0); Mean Corpuscular Volume 96.2 fL (80.0-98.0); Mean Platelet Volume 11.8 fL (9.4-12.4); Monocytes Absolute Auto 0.7 X10*3/uL (0.1-1.2); Monocytes Percent Auto 4.6 % (2-11); Neutrophils Absolute Auto 12.4 x10*3/uL (2.0-8.3); Neutrophils Percent Auto 87.3 % (45-73); Platelet Count 253 X10*3/uL (160-400); Red Blood Count 2.65 X10*6/uL (4.60-5.80); Red Cell Distribution Width 15.4 % (11.0-16.0); White Blood Count 14.2 X10*3/uL (4.8-10.8)
[2022-03-06 05:22] LABS: Anion Gap 15 (12-20); Blood Urea Nitrogen 32 mg/dL (9-16); Carbon Dioxide 30 mmol/L (22-29); Chloride 95 mmol/L (96-108); Creatinine Clr Calc Pharmacy 15.6; Estimated Glomerular Filt Rate 17; Glucose Random 95 mg/dL (60-115); Potassium 3.9 mmol/L (3.3-5.1); Sodium 136 mmol/L (135-145)
[2022-03-06 07:53] LABS: Glucose, Whole Blood 77 mg/dL (60-115)
[2022-03-06 07:54] LABS: PTT Heparin Drip 37.7 SEC (53-77.9)
[2022-03-06] MEDS: 0.9 % Sodium Chloride Flush 3 ML SYRINGE IVFLUSH (08:21)
--- NOTE | 2022-03-06 08:26 | PM.EVENT ---
Event Note Date of Service: 03/06/22 Event Note: Seen/examined. A/P per H and P of this morning. Med rec done. Add ID consult as well Time Spent With Patient Time: Total time managing care of this patient today ____ minutes.
[2022-03-06] MEDS: Heparin Sodium,Porcine 5,000 UNIT/ML VIAL 2800 UNIT IVPUSH (08:33)
--- NOTE | 2022-03-06 08:54 | PC.NURSE ---
Patient awake and alert. skin pwd, resp even and non labored, speaking in full clear sentences. denies pain at this time. toes to right foot necrotic. no palpable pulses to right foot. left BKA. Dr. Swan at bedside to assess patient. heparin drip infusing per order.
--- NOTE | 2022-03-06 09:55 | P.CONGS_ITS ---
History of Present Illness Consult details Consult date: 03/06/22 Reason for consult: wound care Narrative: Very complex 76-year-old gentleman with a history of peripheral vascular disease well known to me presents for right lower extremity ischemia. Back on 06/08/2021 I had performed a left BKA on him. In the interim he had followed up with us and had some peripheral vascular disease which was being worked up by us. In addition most recently he was actually seen at [facility] and admitted. He was worked up by the team over there. He was reported to have lower extremity occlusions. He was discharged and was going to be scheduled for an outpatient amputation at [facility]. It has continued to progress and he did not hear from [facility] in presented to our emergency room. At the current time he has a frankly ischemic leg. Poor motor and sensation. He reports that this is been going on for weaker to. He now presents to us for vascular evaluation. Review of Systems Review of Systems: Yes all other systems are reviewed and are negative Constitutional: Constitutional: Reports no additional constitutional complaints ENT: Reports Normal hearing present Cardiovascular: Cardiovascular: Denies chest pain, Denies chest pain at rest, Denies chest pain with activity and Denies pedal edema Respiratory: Respiratory: Denies cough Gastrointestinal: Gastrointestinal: Denies abdominal pain Musculoskeletal: Musculoskeletal: Denies abnormal gait, Denies muscle cramps and Denies radiating pain into limb Integumentary/Breasts: Skin/Breast: Denies skin ulcer and Denies wounds Neurologic: Reports Normal hearing present and Denies abnormal gait Psychiatric: Psychiatric: Reports no additional psychiatric complaints [facility] Past Medical History Medical History Anemia in chronic kidney disease Below-knee amputation of left lower extremity Diabetes Diabetes mellitus, with long-term current use of insulin Diarrhea End stage renal disease End-stage renal disease on hemodialysis High cholesterol History of leg amputation Hypertension Microalbuminuria Mixed hyperlipidemia PAD (peripheral artery disease) Preoperative cardiovascular examination Family History Family History Father Myocardial infarction Mother No problems noted. Surgical History Surgical History History of eye surgery History of laminectomy History of surgery History of surgery on arm S/P CABG x 4 S/P unilateral BKA (below knee amputation) Social History Social History Household Members: Children Housing: House Do you presently have visiting nurse or other home services: Yes (daughter/son infantry operations specialist) Alcohol intake: never Patient Tobacco Use Status: Never used Tobacco Smoked in Last 30 Days: No e-Cigarette/Vaping Use: Never Used Second Hand Smoke Exposure: No Use of substances other than those prescribed or required for medical reasons: No Advance Directives: Yes Advance Directives on File: Yes Advance Directives Date on File: 06/15/21 service: No Current occupational status: retired and disabled Cognitive needs: Yes Hearing needs: No Vision needs: No Meds Allergies Allergy/AdvReac Type Severity Reaction Status Date / Time lisinopril Allergy Intermediate hyperkalemi Verified 01/23/22 14:01 a lidocaine [From LIDOPRIL] Allergy Mild COUGH Verified 01/23/22 14:01 prilocaine [From LIDOPRIL] Allergy Mild COUGH Verified 01/23/22 14:01 canagliflozin [Invokana] AdvReac Mild back pain Verified 01/23/22 14:01 Hydralazine-HCTZ Allergy Unknown Unknown Uncoded 01/11/22 10:25 Active Medications: Current Medications Acetaminophen (Acetaminophen 325 Mg Tablet) 650 mg PO Q6H PRN PRN Reason: Pain, Mild (Pain Scale 1-3) Amlodipine Besylate (Amlodipine Besylate 5 Mg Tablet) 5 mg PO BEDTIME [facility]; Protocol Aspirin (Aspirin Enteric Coated 81 Mg Tablet.Dr) 81 mg PO DAILY [facility] Atorvastatin Calcium (Atorvastatin Calcium 40 Mg Tablet) 40 mg PO BEDTIME [facility] Bumetanide (Bumetanide 1 Mg Tablet) 1 mg PO DAILY [facility]; Protocol Carvedilol (Carvedilol 25 Mg Tablet) 25 mg PO BID [facility]; Protocol Dextrose (Dextrose 50 % 25 Gm/50 Ml Syringe) 25 gm IVPUSH Q15M PRN; Protocol PRN Reason: per Hypoglycemia Standing Ord. Docusate Sodium (Docusate Sodium 100 Mg Capsule) 100 mg PO DAILY PRN PRN Reason: Constipation Docusate Sodium (Docusate Sodium 100 Mg Capsule) 100 mg PO DAILY [facility] Ergocalciferol (Ergocalciferol (Vitamin D2) 1,250 Mcg Capsule) 1,250 mcg PO Mo [facility] Ferrous Sulfate (Ferrous Sulfate 324 Mg Tablet.Dr) 324 mg PO TID [facility] Glucose (Glucose Gel 15 Gm Gel..Gram.) 15 gm PO Q15M PRN; Protocol PRN Reason: per Hypoglycemia Standing Ord. Heparin Sodium (Porcine) (Heparin Sodium,Porcine 5,000 Unit/Ml Vial) 2,800 unit 40 unit/kg (2800 unit) IVPUSH PROTOCOL BOLUS PRN; Protocol PRN Reason: 40 unit/kg - Heparin Protocol Last Admin: 03/06/22 08:33 Dose: 2,800 unit Heparin Sodium (Porcine) (Heparin Sodium,Porcine 5,000 Unit/Ml Vial) 5,700 unit 80 unit/kg (5700 unit) IVPUSH PROTOCOL BOLUS PRN; Protocol PRN Reason: 80 unit/kg - Heparin Protocol Heparin Sodium/Sodium Chloride (Heparin Sodium,Porcine/1/2ns) 25,000 unit in 250 mls @ 0 mls/hr IVCONT .Q0M [facility]; Protocol Last Titration: 03/06/22 08:32 Dose: 16 units/kg/hr, 11.36 mls/hr Piperacillin Sod/Tazobactam (Sod 2.25 gm/ Sodium Chloride) 50 mls @ 100 mls/hr IV Q6H [facility] Last Admin: 03/06/22 08:20 Dose: 100 mls/hr Insulin Human Lispro (Insulin Lispro 100 Unit/Ml 3 Ml Vial) 0 unit SUBCUT QIDACHS [facility]; Protocol Last Admin: 03/06/22 08:20 Dose: Not Given Losartan Potassium (Losartan Potassium 50 Mg Tablet) 100 mg PO DAILY [facility]; Protocol Morphine Sulfate (Morphine Sulfate 4 Mg/Ml Cartridge) 4 mg IVPUSH Q4H PRN; Protocol PRN Reason: Pain, Severe (Pain Scale 7-10) Last Admin: 03/06/22 02:47 Dose: 4 mg Multivitamins/Vitamin C (Multivitamin Tablet) 1 tab PO DAILY [facility] Ondansetron HCl (Ondansetron Hcl 4 Mg/2 Ml Vial) 4 mg IVPUSH Q8H PRN PRN Reason: Nausea and Vomiting Pharmacy Consult (Consult Rx Perform Med Rec) 1 each MISCELLANE ONCE PRN PRN Reason: Consult order Sevelamer Carbonate (Sevelamer Carbonate Tablet 800 Mg Tablet) 800 mg PO TID [facility] Sodium Chloride (0.9 % Sodium Chloride Flush 3 Ml Syringe) 3 ml IVFLUSH QSHIFT [facility] Last Admin: 03/06/22 08:21 Dose: 3 ml Ursodiol (Ursodiol 300 Mg Capsule) 300 mg PO BID [facility] Home Medications Medication Instructions Recorded Confirmed Last Taken Type sevelamer carbonate 800 mg tablet 800 mg PO TID 01/22/20 03/05/22 06/01/21 History amlodipine 5 mg tablet 5 mg PO BEDTIME 06/01/21 03/05/22 05/31/21 History aspirin 81 mg tablet,delayed 1 tab PO DAILY 06/01/21 03/05/22 06/01/21 History release carvedilol 25 mg tablet 1 tab PO BID 06/01/21 03/05/22 06/01/21 History ursodiol 300 mg capsule 1 cap PO BID 06/01/21 03/05/22 06/01/21 History losartan 100 mg tablet 100 mg PO DAILY 01/23/22 03/05/22 Unknown History Physical Exam Vital Signs: Vital Signs: Last Vital Signs Temp 98.2 F 03/06/22 07:39 Pulse 70 03/06/22 07:39 Resp 18 03/06/22 07:39 BP 143/32 H 03/06/22 07:39 Pulse Ox 93 03/06/22 07:39 O2 Del Method 03/06/22 07:39 BMI result Body Mass Index 26.0 Const: General: cooperative, healthy appearing and comfortable Orie ntation/consciousness: oriented to person, oriented to place and oriented to time HEENT: Head: Yes normal to inspection Neck: Neck: Yes normal visual inspection Carotids: no bruits Chest: Chest palpation & inspection: normal inspection of the chest Resp: Effort & Inspection: normal respiratory effort and able to speak in complete sentences Auscultation: clear to auscultation bilaterally, no crackles, no rales, no rhonchi and no wheezes Cardio: Rate: regular rate Rhythm: regular rhythm Heart sounds: S1 nor mal heart sound present and S2 normal heart sound present Bruits: no carotid bruits Peripheral pulses: dorsalis pedis present (Bilateral DP signal) GI: Inspection: Yes normal to inspection Skin: Other: Right foot jody gangrene starting to demarcate Wounds: no wounds Hair: normal Neuro: General: oriented to person, oriented to place and oriented to time Cranial nerves: Yes CN's II-XII intact bilaterally and Yes Normal hearing present Cognition (Neuro): normal cognition Motor exam (neuro): 5/5 motor strength present throughout Extrem: Other: venous exam: No significant superficial varicosities or spider telangiectasias, minimal edema General: No clubbing, No cyanosis and No edema Psych: Appearance: grossly normal Mental Status: mental status grossly normal Speech and movement: Normal speech and movement present Results Labs Result diagrams: 03/06/22 04:48 03/06/22 04:48 Labs: Abnormal lab results 03/05/22 03/05/22 03/05/22 Range/Units 17:23 17:23 18:14 WBC 16.1 H (4.8-10.8) X10*3/uL RBC 2.85 L D (4.60-5.80) X10*6/uL Hgb 8.8 L D (14.0-18.0) g/dl Hct 26.7 L D (42.0-52.0) % Immature Gran % (Auto) 0.6 H (0.0-0.4) % Neut % (Auto) 91.3 H (45-73) % Lymph % (Auto) 3.0 L (20-40) % Lymph # (Auto) 0.5 L (1.2-4.9) X10*3/uL Abs Immat Gran (auto) 0.09 H (0.00-0.03) X10*3/uL Absolute Neuts (auto) 14.7 H (2.0-8.3) x10*3/uL ESR 111 H (0-15) MM/HR PT (10.0-13.1) SEC INR (0.9-1.1) aPTT Heparin Protocol (53-77.9) SEC Chloride (96-108) mmol/L Carbon Dioxide 30 H (22-29) mmol/L BUN 24 H (9-16) mg/dL Creatinine 2.94 H (0.5-1.4) mg/dL C-Reactive Protein 15.45 H (< or = 0.50) mg/dL Albumin 3.0 L (3.5-5.0) g/dL 03/05/22 03/06/22 03/06/22 Range/Units 23:59 04:48 04:48 WBC 14.2 H (4.8-10.8) X10*3/uL RBC 2.65 L (4.60-5.80) X10*6/uL Hgb 8.3 L (14.0-18.0) g/dl Hct 25.5 L (42.0-52.0) % Immature Gran % (Auto) (0.0-0.4) % Neut % (Auto) 87.3 H (45-73) % Lymph % (Auto) 4.9 L (20-40) % Lymph # (Auto) 0.7 L (1.2-4.9) X10*3/uL Abs Immat Gran (auto) 0.06 H (0.00-0.03) X10*3/uL Absolute Neuts (auto) 12.4 H (2.0-8.3) x10*3/uL ESR (0-15) MM/HR PT 15.3 H (10.0-13.1) SEC INR 1.3 H (0.9-1.1) aPTT Heparin Protocol (53-77.9) SEC Chloride 95 L (96-108) mmol/L Carbon Dioxide 30 H (22-29) mmol/L BUN 32 H (9-16) mg/dL Creatinine 3.55 H (0.5-1.4) mg/dL C-Reactive Protein (< or = 0.50) mg/dL Albumin (3.5-5.0) g/dL 03/06/22 Range/Units 07:29 WBC (4.8-10.8) X10*3/uL RBC (4.60-5.80) X10*6/uL Hgb (14.0-18.0) g/dl Hct (42.0-52.0) % Immature Gran % (Auto) (0.0-0.4) % Neut % (Auto) (45-73) % Lymph % (Auto) (20-40) % Lymph # (Auto) (1.2-4.9) X10*3/uL Abs Immat Gran (auto) (0.00-0.03) X10*3/uL Absolute Neuts (auto) (2.0-8.3) x10*3/uL ESR (0-15) MM/HR PT (10.0-13.1) SEC INR (0.9-1.1) aPTT Heparin Protocol 37.7 L D (53-77.9) SEC Chloride (96-108) mmol/L Carbon Dioxide (22-29) mmol/L BUN (9-16) mg/dL Creatinine (0.5-1.4) mg/dL C-Reactive Protein (< or = 0.50) mg/dL Albumin (3.5-5.0) g/dL Short CBC 03/05/22 03/06/22 Range/Units 17:23 04:48 WBC 16.1 H 14.2 H (4.8-10.8) X10*3/uL Hgb 8.8 L D 8.3 L (14.0-18.0) g/dl Hct 26.7 L D 25.5 L (42.0-52.0) % Plt Count 260 D 253 (160-400) X10*3/uL BMP 03/05/22 03/06/22 18:14 04:48 Sodium 138 136 Potassium 3.7 3.9 Chloride 96 95 L Carbon Dioxide 30 H 30 H BUN 24 H 32 H Creatinine 2.94 H 3.55 H Calcium 9.1 9.0 Liver Function 03/05/22 Range/Units 18:14 Total Bilirubin 0.7 (0.0-1.0) mg/dL AST 32 (5-37) U/L ALT 21 (0-40) U/L Alkaline Phosphatase 61 (39-117) U/L Albumin 3.0 L (3.5-5.0) g/dL All other labs normal. Assessment and Plan (1) Gangrene of right foot: Status: Acute Plan In short patient has jody gangrene of that foot. It has progressed. And there appears to be no salvage. I did review the CT angiogram and it does not appear to be a bypassable vessel. In addition I believe there was similar findings from [facility]. We are in the process of obtaining some of the information from them as well. Will stop heparin drip as it appears to be more of a chronic occlusion. Will out to let the foot demarcate to better determine the level of amputation. Will plan for amputation later this week. Thank you for allowing us to assist in his care. If there are any questions or concerns please do not hesitate to contact us. Time Spent With Patient Time: Total time managing care of this patient today _60___ minutes. Review notes, imaging, discussion with the emergency room staff, discussion with hospitalist staff, and direct patient contact required 60 minutes of time Procedures Date of Service Date of Service: 03/06/22
[2022-03-06] MEDS: Bumetanide 1 MG TABLET PO (10:10)
[2022-03-06] MEDS: Sevelamer Carbonate Tablet 800 MG TABLET PO ×3 (10:10→22:17)
--- NOTE | 2022-03-06 10:10 | PC.NURSE ---
heparin drip d/c'd per order
[2022-03-06] MEDS: Multivitamin TABLET 1 TAB PO (10:11)
[2022-03-06] MEDS: Ferrous Sulfate 324 MG TABLET.DR PO ×3 (10:11→21:43)
[2022-03-06] MEDS: Losartan Potassium 50 MG TABLET 100 MG PO (10:11)
[2022-03-06] MEDS: carvediloL 25 MG TABLET PO ×2 (10:11→21:42)
[2022-03-06] MEDS: Docusate Sodium 100 MG CAPSULE PO (10:11)
[2022-03-06] MEDS: Aspirin Enteric Coated 81 MG TABLET.DR PO (10:12)
[2022-03-06] MEDS: Heparin Sodium,Porcine 5,000 UNIT/ML VIAL 5000 UNIT SUBCUT ×2 (11:27→21:41)
--- NOTE | 2022-03-06 11:36 | P.PNNP_ITS ---
Subjective Subjective Date of Service: 03/06/22 Interval history: seen and examined Physical Exam Vital Signs: Vital Signs: Last Vital Signs Temp 98.2 F 03/06/22 07:39 Pulse 68 03/06/22 10:16 Resp 16 03/06/22 10:16 BP 140/23 H 03/06/22 10:16 Pulse Ox 93 03/06/22 07:39 O2 Del Method 03/06/22 10:16 BMI result Body Mass Index 26.0 Objective Data Labs CBC & Chem 7: 03/06/22 04:48 03/06/22 04:48 Labs: Laboratory Results - last 24 hr 03/05/22 03/05/22 03/05/22 17:23 17:23 17:23 WBC 16.1 H RBC 2.85 L D Hgb 8.8 L D Hct 26.7 L D MCV 93.7 MCH 30.9 MCHC 33.0 RDW 15.2 Plt Count 260 D MPV 12.2 Immature Gran % (Auto) 0.6 H Neut % (Auto) 91.3 H Lymph % (Auto) 3.0 L [place] % (Auto) 3.2 Eos % (Auto) 1.5 Baso % (Auto) 0.4 Lymph # (Auto) 0.5 L [place] # (Auto) 0.5 Eos # (Auto) 0.2 Baso # (Auto) 0.1 Abs Immat Gran (auto) 0.09 H Absolute Neuts (auto) 14.7 H Absolute Nucleated RBC 0.000 Nucleated RBC % (auto) 0.0 Smear Tech's Comments VERIFIED ESR 111 H PT INR aPTT Heparin Protocol Sodium Potassium Chloride Carbon Dioxide Anion Gap BUN Creatinine Estim Creat Clear Calc Estimated GFR POC Glucose Random Glucose Lactic Acid 0.9 Calcium Magnesium Total Bilirubin AST ALT Alkaline Phosphatase C-Reactive Protein Total Protein Albumin COVID-19 ([facility]) COVID-19 Clin Com 03/05/22 03/05/22 03/05/22 17:23 18:14 23:59 WBC RBC Hgb Hct MCV MCH MCHC RDW Plt Count MPV Immature Gran % (Auto) Neut % (Auto) Lymph % (Auto) [place] % (Auto) Eos % (Auto) Baso % (Auto) Lymph # (Auto) [place] # (Auto) Eos # (Auto) Baso # (Auto) Abs Immat Gran (auto) Absolute Neuts (auto) Absolute Nucleated RBC Nucleated RBC % (auto) Smear Tech's Comments ESR PT 15.3 H INR 1.3 H aPTT Heparin Protocol 62.7 Sodium 138 Potassium 3.7 Chloride 96 Carbon Dioxide 30 H Anion Gap 16 BUN 24 H Creatinine 2.94 H Estim Creat Clear Calc 18.8 Estimated GFR 21 POC Glucose Random Glucose 108 Lactic Acid Calcium 9.1 Magnesium 1.9 Total Bilirubin 0.7 AST 32 ALT 21 Alkaline Phosphatase 61 C-Reactive Protein 15.45 H Total Protein 6.9 Albumin 3.0 L COVID-19 ([facility]) Negative COVID-19 Clin Com See Note 03/06/22 03/06/22 03/06/22 04:48 04:48 07:29 WBC 14.2 H RBC 2.65 L Hgb 8.3 L Hct 25.5 L MCV 96.2 MCH 31.3 MCHC 32.5 RDW 15.4 Plt Count 253 MPV 11.8 Immature Gran % (Auto) 0.4 Neut % (Auto) 87.3 H Lymph % (Auto) 4.9 L [place] % (Auto) 4.6 Eos % (Auto) 2.2 Baso % (Auto) 0.6 Lymph # (Auto) 0.7 L [place] # (Auto) 0.7 Eos # (Auto) 0.3 Baso # (Auto) 0.1 Abs Immat Gran (auto) 0.06 H Absolute Neuts (auto) 12.4 H Absolute Nucleated RBC 0.000 Nucleated RBC % (auto) 0.0 Smear Tech's Comments ESR PT INR aPTT Heparin Protocol 37.7 L D Sodium 136 Potassium 3.9 Chloride 95 L Carbon Dioxide 30 H Anion Gap 15 BUN 32 H Creatinine 3.55 H Estim Creat Clear Calc 15.6 Estimated GFR 17 POC Glucose Random Glucose 95 Lactic Acid Calcium 9.0 Magnesium Total Bilirubin AST ALT Alkaline Phosphatase C-Reactive Protein Total Protein Albumin COVID-19 ([facility]) COVID-19 [employer] Com 03/06/22 07:38 WBC RBC Hgb Hct MCV MCH MCHC RDW Plt Count MPV Immature Gran % (Auto) Neut % (Auto) Lymph % (Auto) [place] % (Auto) Eos % (Auto) Baso % (Auto) Lymph # (Auto) [place] # (Auto) Eos # (Auto) Baso # (Auto) Abs Immat Gran (auto) Absolute Neuts (auto) Absolute Nucleated RBC Nucleated RBC % (auto) Smear Tech's Comments ESR PT INR aPTT Heparin Protocol Sodium Potassium Chloride Carbon Dioxide Anion Gap BUN Creatinine Estim Creat Clear Calc Estimated GFR POC Glucose 77 Random Glucose Lactic Acid Calcium Magnesium Total Bilirubin AST ALT Alkaline Phosphatase C-Reactive Protein Total Protein Albumin COVID-19 ([facility]) COVID-19 Clin Com Procedures Date of Service Date of Service: 03/06/22 Assessment & Plan Assessment and plan (1) ESRD (end stage renal disease): Status: Acute (2) Wet gangrene: Status: Acute (3) Anemia: Status: Acute Plan usually had HD -- at [facility] unit admitted with wet gangrene REC HD tomorrow renal diet phosphate binders dose medication for dialysis patient DANIEL per protocol Time Spent With Patient Time: Total time managing care of this patient today ____ minutes. Progress Note: Quality Stroke Does the patient have a stroke diagnosis?: No
[2022-03-06 11:56] LABS: Glucose, Whole Blood 237 mg/dL (60-115)
--- NOTE | 2022-03-06 12:41 | MHC.CM.PN ---
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
[2022-03-06] MEDS: Insulin Lispro 100 UNIT/ML 3 ML VIAL SUBCUT ×2 (13:44→21:43)
--- NOTE | 2022-03-06 14:15 | PC.NURSE ---
Sent a message about pt's drop in blood pressure and hospitalist is not concerned. Pt is sitting up eating lunch and talking with family on the phone. Pt denies and head ache, dizziness or other symptoms.
[2022-03-06 14:49] LABS: PTT Heparin Drip 38.6 SEC (53-77.9)
[2022-03-06 20:37] LABS: Glucose, Whole Blood 209 mg/dL (60-115)
[2022-03-06] MEDS: amLODIPine Besylate 5 MG TABLET PO (21:42)
[2022-03-06] MEDS: UrsodioL 300 MG CAPSULE PO (21:42)
[2022-03-06] MEDS: Atorvastatin Calcium 40 MG TABLET PO (21:43)
[2022-03-07] MEDS: Morphine Sulfate 4 MG/ML CARTRIDGE IVPUSH ×2 (01:35→23:05)
[2022-03-07] MEDS: Heparin Sodium,Porcine 5,000 UNIT/ML VIAL 5000 UNIT SUBCUT ×2 (01:38→09:29)
[2022-03-07] MEDS: Piperacillin Sodium/Tazobactam 2.25 GM in 0.9 % Sodium Chloride 50 ML IV ×4 (03:28→23:01)
[2022-03-07 04:00] VITALS: BP 142/51; PULSE 94; RESP 16; TEMP 36.4; O2SAT 96
--- NOTE | 2022-03-07 07:29 | P.PNIM_ITS ---
Subjective Subjective Date of Service: 03/08/22 Interval History: f/u wet gangrene of the foot Physical Exam Vital Signs: Vital Signs: Last Vital Signs Temp 97.6 F 03/07/22 04:00 Pulse 94 03/07/22 04:00 Resp 16 03/07/22 04:00 BP 142/51 H 03/07/22 04:00 Pulse Ox 96 03/07/22 04:00 O2 Del Method 03/07/22 04:00 BMI result Body Mass Index 26.0 Const: Other: General: AO X 3, no acute distress Resp: CTA bilateral CVS: S1,S2,RRR GI: +BS, NT, no distention Skin: Right foot jody gangrene ? Neuro: motor grossly intact Psych: appropriate affect Objective Data Active Medications Acetaminophen (Acetaminophen 325 Mg Tablet) 650 mg PO Q6H PRN PRN Reason: Pain, Mild (Pain Scale 1-3) Amlodipine Besylate (Amlodipine Besylate 5 Mg Tablet) 5 mg PO BEDTIME [facility]; Protocol Last Admin: 03/06/22 21:42 Dose: 5 mg Documented By: OUSMANE Aspirin (Aspirin Enteric Coated 81 Mg Tablet.Dr) 81 mg PO DAILY [facility] Last Admin: 03/06/22 10:12 Dose: 81 mg Documented By: CONRAD Atorvastatin Calcium (Atorvastatin Calcium 40 Mg Tablet) 40 mg PO BEDTIME [facility] Last Admin: 03/06/22 21:43 Dose: 40 mg Documented By: OUSMANE Bumetanide (Bumetanide 1 Mg Tablet) 1 mg PO DAILY [facility]; Protocol Last Admin: 03/06/22 10:10 Dose: 1 mg Documented By: CONRAD Carvedilol (Carvedilol 25 Mg Tablet) 25 mg PO BID [facility]; Protocol Last Admin: 03/06/22 21:42 Dose: 25 mg Documented By: OUSMANE Dextrose (Dextrose 50 % 25 Gm/50 Ml Syringe) 25 gm IVPUSH Q15M PRN; Protocol PRN Reason: per Hypoglycemia Standing Ord. Docusate Sodium (Docusate Sodium 100 Mg Capsule) 100 mg PO DAILY PRN PRN Reason: Constipation Docusate Sodium (Docusate Sodium 100 Mg Capsule) 100 mg PO DAILY [facility] Last Admin: 03/06/22 10:11 Dose: 100 mg Documented By: CONRAD Ergocalciferol (Ergocalciferol (Vitamin D2) 1,250 Mcg Capsule) 1,250 mcg PO Mo [facility] Ferrous Sulfate (Ferrous Sulfate 324 Mg Tablet.Dr) 324 mg PO TID [facility] Last Admin: 03/06/22 21:43 Dose: 324 mg Documented By: OUSMANE Glucose (Glucose Gel 15 Gm Gel..Gram.) 15 gm PO Q15M PRN; Protocol PRN Reason: per Hypoglycemia Standing Ord. Heparin Sodium (Porcine) (Heparin Sodium,Porcine 5,000 Unit/Ml Vial) 5,000 unit SUBCUT Q8H [facility] Last Admin: 03/07/22 01:38 Dose: 5,000 unit Documented By: OUSMANE Piperacillin Sod/Tazobactam (Sod 2.25 gm/ Sodium Chloride) 50 mls @ 100 mls/hr IV Q6H [facility] Last Infusion: 03/07/22 03:59 Dose: 0 mls/hr Documented By: OUSMANE Insulin Human Lispro (Insulin Lispro 100 Unit/Ml 3 Ml Vial) 0 unit SUBCUT QIDACHS [facility]; Protocol Last Admin: 03/06/22 21:43 Dose: 4 unit Documented By: OUSMANE Losartan Potassium (Losartan Potassium 50 Mg Tablet) 100 mg PO DAILY [facility]; Protocol Last Admin: 03/06/22 10:11 Dose: 100 mg Documented By: CONRAD Morphine Sulfate (Morphine Sulfate 4 Mg/Ml Cartridge) 4 mg IVPUSH Q4H PRN; Protocol PRN Reason: Pain, Severe (Pain Scale 7-10) Last Admin: 03/07/22 01:35 Dose: 4 mg Documented By: OUSMANE Multivitamins/Vitamin C (Multivitamin Tablet) 1 tab PO DAILY [facility] Last Admin: 03/06/22 10:11 Dose: 1 tab Documented By: CONRAD Ondansetron HCl (Ondansetron Hcl 4 Mg/2 Ml Vial) 4 mg IVPUSH Q8H PRN PRN Reason: Nausea and Vomiting Pharmacy Consult (Consult Rx Perform Med Rec) 1 each MISCELLANE ONCE PRN PRN Reason: Consult order Sevelamer Carbonate (Sevelamer Carbonate Tablet 800 Mg Tablet) 800 mg PO TID [facility] Last Admin: 03/06/22 22:17 Dose: 800 mg Documented By: OUSMANE Sodium Chloride (0.9 % Sodium Chloride Flush 3 Ml Syringe) 3 ml IVFLUSH QSHIFT [facility] Last Admin: 03/07/22 03:59 Dose: Not Given Documented By: OUSMANE Non-Admin Reason: IV Running Ursodiol (Ursodiol 300 Mg Capsule) 300 mg PO BID [facility] Last Admin: 03/06/22 21:42 Dose: 300 mg Documented By: OUSMANE Labs CBC & Chem 7: 03/08/22 08:04 03/06/22 04:48 Labs: Laboratory Results - last 24 hr 03/06/22 03/06/22 03/06/22 07:29 07:38 11:52 aPTT Heparin Protocol 37.7 L D POC Glucose 77 237 H 03/06/22 03/06/22 14:34 20:32 aPTT Heparin Protocol 38.6 L POC Glucose 209 H Microbiology Microbiology Results: Microbiology 03/05/22 17:23 Blood Culture - Preliminary Blood - Venous No growth after 24 hours. 03/05/22 17:23 Blood Culture - Preliminary Blood - Venous No growth after 24 hours. Assessment and Plan (1) Wet gangrene: Status: Acute (2) ESRD (end stage renal disease): Status: Acute Plan 76-year-old male with past medical history of peripheral vascular disease, diabetes, ESRD on dialysis, presents to the hospital with complaints of right foot? infection found to have gangrenous foot. # ? Wet gangrene--deemed not salvageable and for amputation tomorow, interim antibiotics with Zosyn #? diabetes--SSI, diabetic diet #PAD--no indication for heparin drip, ASA # HLD--Lipitor # ESRD - on dialysis MWF - Nephro following DVT PPX: heparin Need for admit: wet gangrene of foot that need amputation not yet done Time Spent With Patient Time: Total time managing care of this patient today ____ minutes. Quality Stroke Does the patient have a stroke diagnosis?: No VTE Prior VTE?: No VTE Risk Level:: Medical - moderate - high VTE Device Contraindication: Treatment Not Indicated VTE Drug Contraindication: N/A - Med Ordered
[2022-03-07 07:34] LABS: Glucose, Whole Blood 130 mg/dL (60-115)
[2022-03-07 07:51] VITALS: BP 160/61; PULSE 62; RESP 18; TEMP 36.9; O2SAT 93
[2022-03-07] MEDS: UrsodioL 300 MG CAPSULE PO ×2 (09:28→21:14)
[2022-03-07] MEDS: Docusate Sodium 100 MG CAPSULE PO (09:28)
[2022-03-07] MEDS: Losartan Potassium 50 MG TABLET 100 MG PO (09:28)
[2022-03-07] MEDS: Sevelamer Carbonate Tablet 800 MG TABLET PO ×3 (09:28→21:14)
[2022-03-07] MEDS: Bumetanide 1 MG TABLET PO (09:28)
[2022-03-07] MEDS: Multivitamin TABLET 1 TAB PO (09:28)
[2022-03-07] MEDS: Aspirin Enteric Coated 81 MG TABLET.DR PO (09:28)
[2022-03-07] MEDS: 0.9 % Sodium Chloride Flush 3 ML SYRINGE IVFLUSH ×3 (09:29→23:38)
[2022-03-07] MEDS: Ferrous Sulfate 324 MG TABLET.DR PO ×3 (09:29→21:13)
[2022-03-07] MEDS: carvediloL 25 MG TABLET PO ×2 (09:29→21:13)
--- NOTE | 2022-03-07 10:40 | HO.VASCPN ---
Subjective Subjective Date of Service: 03/07/22 Patient reports: no new complaints and feels better Interval history: Patient seen and examined with data processing equipment repairer present. Appears to be doing relatively well. No events overnight. Pain appears to be relatively well controlled. Now for routine follow-up of nonhealing right lower extremity. Physical Exam Vital Signs: Vital Signs: Last Vital Signs Temp 98.5 F 03/07/22 07:51 Pulse 62 03/07/22 07:51 Resp 18 03/07/22 07:51 BP 160/61 H 03/07/22 07:51 Pulse Ox 93 03/07/22 07:51 O2 Del Method 03/07/22 07:51 BMI result Body Mass Index 26.0 Skin: Other: Right foot jody gangrene Progress Note: A&P Assessment and plan (1) Gangrene of right foot: Status: Acute Assessment and Plan: In short patient has a diabetic foot ulcer with gangrene. I did review the CT scan and it is unreconstructable vascular disease. In addition he has lost motor and sensation of that foot. He will require a right below-knee amputation. Risks benefits complications of the procedure were discussed in detail with the patient. He understood and would like to move forward.. This was done with an data processing equipment repairer present to explain the procedure. Thank you for allowing us to assist in this patient's care. If there are any questions or concerns please do not hesitate to contact us. Time Spent With Patient Time: Total time managing care of this patient today ____ minutes. Procedures Date of Service Date of Service: 03/07/22 Quality Stroke Does the patient have a stroke diagnosis?: No VTE Prior VTE?: No VTE Risk Level:: Medical - moderate - high VTE Device Contraindication: Treatment Not Indicated VTE Drug Contraindication: N/A - Med Ordered
[2022-03-07 10:59] LABS: Glucose, Whole Blood 220 mg/dL (60-115)
[2022-03-07] MEDS: Acetaminophen 325 MG TABLET 650 MG PO (11:03)
--- NOTE | 2022-03-07 11:32 | P.PNNP_ITS ---
Subjective Subjective Date of Service: 03/07/22 Interval history: seen and examined on dialysis no complaints Physical Exam Vital Signs: Vital Signs: Last Vital Signs Temp 98.5 F 03/07/22 07:51 Pulse 62 03/07/22 07:51 Resp 18 03/07/22 07:51 BP 160/61 H 03/07/22 07:51 Pulse Ox 93 03/07/22 07:51 O2 Del Method 03/07/22 07:51 BMI result Body Mass Index 26.0 Const: General: alert and awake HEENT: Head: Yes normocephalic and Yes atraumatic Neck: Neck: Yes supple Resp: Auscultation: clear to auscultation bilaterally Cardio: Heart sounds: S1 normal heart sound present and S2 normal heart sound present GI: Palpation (GI): Soft to palpation and nontender Psych: Appearance: grossly normal Objective Data Labs CBC & Chem 7: 03/06/22 04:48 03/06/22 04:48 Labs: Laboratory Results - last 24 hr 03/06/22 03/06/22 03/06/22 11:52 14:34 20:32 aPTT Heparin Protocol 38.6 L POC Glucose 237 H 209 H 03/07/22 03/07/22 07:27 10:53 aPTT Heparin Protocol POC Glucose 130 H 220 H Microbiology Microbiology Results: Microbiology 03/05/22 17:23 Blood - Venous Blood Culture - Preliminary No growth after 24 hours. 03/05/22 17:23 Blood - Venous Blood Culture - Preliminary No growth after 24 hours. Procedures Date of Service Date of Service: 03/07/22 Assessment & Plan Assessment and plan (1) ESRD (end stage renal disease): Status: Acute (2) Wet gangrene: Status: Acute (3) Anemia: Status: Acute Plan usually had HD m-w- at [facility] HD unit admitted with wet gangrene deemed not salvageable and plan for amputation later this week REC HD today UF as tolerated renal diet phosphate binders dose medication for dialysis patient DANIEL per protocol on Zosyn Time Spent With Patient Time: Total time managing care of this patient today ____ minutes. Progress Note: Quality Stroke Does the patient have a stroke diagnosis?: No
--- NOTE | 2022-03-07 14:43 | CONS_ITS ---
DATE OF SERVICE: 03/07/2022 HISTORY OF PRESENT ILLNESS: This is a 76-year-old patient with a known history of end-stage renal disease on chronic hemodialysis, who presented to the hospital with foot ulcer. The patient has a history of left BKA, presented with right foot gangrene. He noticed skin changes of his right foot about 2 months ago, which was getting worse over the last week. At the time of the consultation, he denies any fever or chills. There is no chest pain, shortness of breath, nausea, vomiting, diarrhea, or abdominal pain. PAST MEDICAL HISTORY: Remarkable for end-stage renal disease, diabetes mellitus, hypertension, dyslipidemia, peripheral arterial disease, and anemia. PAST SURGICAL HISTORY: Notable for below-knee amputation of left extremities, coronary artery bypass graft surgery, laminectomy, eye surgery, and vascular access placement. MEDICATIONS: Inpatient, outpatient reviewed. ALLERGIES: HE IS ALLERGIC TO LISINOPRIL, CANAGLIFLOZIN, HYDRALAZINE, LIDOCAINE. SOCIAL HISTORY: Does not smoke. FAMILY HISTORY: Negative for kidney disease. REVIEW OF SYSTEMS: 10-point review of system negative except for pertinent in History of Present Illness. PHYSICAL EXAMINATION: VITAL SIGNS: Blood pressure is 160/61, heart rate 62, respiratory rate 18, temperature 98.5. CONSTITUTIONAL: Looks his age. No acute distress. NEUROLOGIC: Alert, awake. HEENT: Head is atraumatic and normocephalic. NECK: Supple. LUNGS: Good air entry bilaterally. CARDIOVASCULAR: S1, S2. No rub. ABDOMEN: Soft, obese, nontender. EXTREMITIES: Left below-knee amputation. LABORATORY DATA: Showed a white count 14.2, hemoglobin 8.3, platelet count 253. Sodium 136, potassium 3.9, chloride 95, CO2 30, BUN 32, creatinine 3.55. IMPRESSION: 1. End-stage renal disease. 2. Wet gangrene. 3. Anemia. This patient with end-stage renal disease, on chronic hemodialysis at the [facility] Saturday, Saturday, Saturday, was admitted with wet gangrene. PLAN: Will be to proceed with his hemodialysis as per schedule tomorrow as there is no indication for emergent dialysis today renal diet phosphate binders. Dose medication for dialysis patient, and dose Epogen per protocol. Narendra Pacheco MD GF/MODL / [phone]
--- NOTE | 2022-03-07 15:32 | MHC.CM.PN ---
EMR REVIEWED, PER SURGICAL PLAN FOR BKA TOMORROW 03/08, PT ALSO ON HD MWF AT [facility], NO PLAN FOR D/C AT THIS TIME, CM WILL CONT TO FOLLOW D/C NEEDS.
[2022-03-07 16:00] VITALS: BP 125/56; PULSE 66; RESP 18; TEMP 36.4; O2SAT 97
[2022-03-07 16:25] LABS: Glucose, Whole Blood 123 mg/dL (60-115)
[2022-03-07 20:00] VITALS: BP 160/60; PULSE 72; RESP 16; TEMP 36.6; O2SAT 96
[2022-03-07 20:56] LABS: Glucose, Whole Blood 178 mg/dL (60-115)
[2022-03-07] MEDS: Atorvastatin Calcium 40 MG TABLET PO (21:13)
[2022-03-07] MEDS: amLODIPine Besylate 5 MG TABLET PO (21:13)
[2022-03-07] MEDS: Insulin Lispro 100 UNIT/ML 3 ML VIAL SUBCUT (21:14)
[2022-03-08] VITALS (11 sets, daily range): BP systolic 99–148; BP diastolic 22–95; PULSE 64–67; RESP 12–18; TEMP 36.1–36.8; O2SAT 94–100
[2022-03-08] MEDS: Piperacillin Sodium/Tazobactam 2.25 GM in 0.9 % Sodium Chloride 50 ML IV ×4 (05:42→23:37)
[2022-03-08 07:34] LABS: Glucose, Whole Blood 101 mg/dL (60-115)
[2022-03-08 08:36] LABS: Hematocrit 24.5 % (42.0-52.0); Hemoglobin 7.8 g/dl (14.0-18.0); Mean Corpuscular HGB Conc 31.8 g/dl (31.0-36.0); Mean Corpuscular Hemoglobin 30.7 pg (27.0-33.0); Mean Corpuscular Volume 96.5 fL (80.0-98.0); Mean Platelet Volume 11.9 fL (9.4-12.4); Platelet Count 294 X10*3/uL (160-400); Red Blood Count 2.54 X10*6/uL (4.60-5.80); Red Cell Distribution Width 15.5 % (11.0-16.0); White Blood Count 14.2 X10*3/uL (4.8-10.8)
--- NOTE | 2022-03-08 10:14 | P.PNIM_ITS ---
Subjective Subjective Date of Service: 03/08/22 Interval History: seen and examined on dialysis no new complaints Physical Exam Vital Signs: Vital Signs: Last Vital Signs Temp 98.3 F 03/08/22 07:24 Pulse 65 03/08/22 07:24 Resp 16 03/08/22 07:24 BP 134/59 L 03/08/22 07:24 Pulse Ox 95 03/08/22 07:24 O2 Del Method 03/08/22 07:24 BMI result Body Mass Index 26.0 Const: Other: General: AO X 3, no acute distress Resp: CTA bilateral CVS: S1,S2,RRR GI: +BS, NT, no distention Skin: Right foot jody gangrene ? Neuro: motor grossly intact Psych: appropriate affect Objective Data Active Medications Acetaminophen (Acetaminophen 325 Mg Tablet) 650 mg PO Q6H PRN PRN Reason: Pain, Mild (Pain Scale 1-3) Last Admin: 03/07/22 11:03 Dose: 650 mg Documented By: SOM Amlodipine Besylate (Amlodipine Besylate 5 Mg Tablet) 5 mg PO BEDTIME [facility]; Protocol Last Admin: 03/07/22 21:13 Dose: 5 mg Documented By: RENY Aspirin (Aspirin Enteric Coated 81 Mg Tablet.) 81 mg PO DAILY [facility] Last Admin: 03/07/22 09:28 Dose: 81 mg Documented By: SOM Atorvastatin Calcium (Atorvastatin Calcium 40 Mg Tablet) 40 mg PO BEDTIME [facility] Last Admin: 03/07/22 21:13 Dose: 40 mg Documented By: RENY Bumetanide (Bumetanide 1 Mg Tablet) 1 mg PO DAILY [facility]; Protocol Last Admin: 03/07/22 09:28 Dose: 1 mg Documented By: SOM Carvedilol (Carvedilol 25 Mg Tablet) 25 mg PO BID [facility]; Protocol Last Admin: 03/07/22 21:13 Dose: 25 mg Documented By: RENY Dextrose (Dextrose 50 % 25 Gm/50 Ml Syringe) 25 gm IVPUSH Q15M PRN; Protocol PRN Reason: per Hypoglycemia Standing Ord. Docusate Sodium (Docusate Sodium 100 Mg Capsule) 100 mg PO DAILY PRN PRN Reason: Constipation Docusate Sodium (Docusate Sodium 100 Mg Capsule) 100 mg PO DAILY [facility] Last Admin: 03/07/22 09:28 Dose: 100 mg Documented By: SOM Ergocalciferol (Ergocalciferol (Vitamin D2) 1,250 Mcg Capsule) 1,250 mcg PO Mo [facility] Ferrous Sulfate (Ferrous Sulfate 324 Mg Tablet.Dr) 324 mg PO TID [facility] Last Admin: 03/07/22 21:13 Dose: 324 mg Documented By: RENY Glucose (Glucose Gel 15 Gm Gel..Gram.) 15 gm PO Q15M PRN; Protocol PRN Reason: per Hypoglycemia Standing Ord. Heparin Sodium (Porcine) (Heparin Sodium,Porcine 5,000 Unit/Ml Vial) 5,000 unit SUBCUT Q8H [facility] Last Admin: 03/07/22 09:29 Dose: 5,000 unit Documented By: SOM Piperacillin Sod/Tazobactam (Sod 2.25 gm/ Sodium Chloride) 50 mls @ 100 mls/hr IV Q6H [facility] Last Infusion: 03/08/22 06:14 Dose: 0 mls/hr Documented By: RENY Insulin Human Lispro (Insulin Lispro 100 Unit/Ml 3 Ml Vial) 0 unit SUBCUT QIDACHS [facility]; Protocol Last Admin: 03/08/22 09:25 Dose: Not Given Documented By: KENNETH Non-Admin Reason: No Insulin Coverage Losartan Potassium (Losartan Potassium 50 Mg Tablet) 100 mg PO DAILY [facility]; Protocol Last Admin: 03/07/22 09:28 Dose: 100 mg Documented By: SOM Morphine Sulfate (Morphine Sulfate 4 Mg/Ml Cartridge) 4 mg IVPUSH Q4H PRN; Protocol PRN Reason: Pain, Severe (Pain Scale 7-10) Last Admin: 03/07/22 23:05 Dose: 4 mg Documented By: RENY Multivitamins/Vitamin C (Multivitamin Tablet) 1 tab PO DAILY [facility] Last Admin: 03/07/22 09:28 Dose: 1 tab Documented By: SOM Ondansetron HCl (Ondansetron Hcl 4 Mg/2 Ml Vial) 4 mg IVPUSH Q8H PRN PRN Reason: Nausea and Vomiting Pharmacy Consult (Consult Rx Perform Med Rec) 1 each MISCELLANE ONCE PRN PRN Reason: Consult order Sevelamer Carbonate (Sevelamer Carbonate Tablet 800 Mg Tablet) 800 mg PO TID [facility] Last Admin: 03/07/22 21:14 Dose: 800 mg Documented By: RENY Sodium Chloride (0.9 % Sodium Chloride Flush 3 Ml Syringe) 3 ml IVFLUSH QSHIFT [facility] Last Admin: 03/07/22 23:38 Dose: 3 ml Documented By: RENY Ursodiol (Ursodiol 300 Mg Capsule) 300 mg PO BID [facility] Last Admin: 03/07/22 21:14 Dose: 300 mg Documented By: RENY Labs CBC & Chem 7: 03/08/22 08:04 03/06/22 04:48 Labs: Laboratory Results - last 24 hr 03/07/22 03/07/22 03/07/22 10:53 16:16 20:53 MCV MCH MCHC RDW Plt Count MPV Absolute Nucleated RBC Nucleated RBC % (auto) POC Glucose 220 H 123 H 178 H Blood Type Antibody Screen 03/08/22 03/08/22 03/08/22 07:28 08:03 08:04 MCV 96.5 MCH 30.7 MCHC 31.8 RDW 15.5 Plt Count 294 MPV 11.9 Absolute Nucleated RBC 0.000 Nucleated RBC % (auto) 0.0 POC Glucose 101 Blood Type A Positive Antibody Screen NEGATIVE Microbiology Microbiology Results: Microbiology 03/05/22 17:23 Blood Culture - Preliminary Blood - Venous No growth after 48 hours. 03/05/22 17:23 Blood Culture - Preliminary Blood - Venous No growth after 48 hours. Assessment and Plan (1) Wet gangrene: Status: Acute (2) ESRD (end stage renal disease): Status: Acute Plan 76-year-old male with past medical history of peripheral vascular disease, diabe abdi, ESRD on dialysis, presents to the hospital with complaints of right foot? infection found to have gangrenous foot. # ? Wet gangrene--deemed not salvageable and for amputation today 03/08, interim antibiotics with Zosyn #? diabetes--SSI, diabetic diet #PAD--no indication for heparin drip, ASA # HLD--Lipitor # ESRD - on dialysis MWF - Nephro following DVT PPX: heparin Need for admit: wet gangrene of foot that need amputation not yet done Time Spent With Patient Time: Total time managing care of this patient today ____ minutes. Quality Stroke Does the patient have a stroke diagnosis?: No VTE Prior VTE?: No VTE Risk Level:: Medical - moderate - high VTE Device Contraindication: Treatment Not Indicated VTE Drug Contraindication: N/A - Med Ordered
--- NOTE | 2022-03-08 11:35 | PM.PNNEP ---
Subjective Subjective Date of Service: 03/08/22 Interval history: seen and examined had dialysis yesterday family at bedside updated no new complaints Physical Exam Vital Signs: Vital Signs: Last Vital Signs Temp 98.3 F 03/08/22 07:24 Pulse 65 03/08/22 07:24 Resp 16 03/08/22 07:24 BP 134/59 L 03/08/22 07:24 Pulse Ox 95 03/08/22 07:24 O2 Del Method 03/08/22 07:24 BMI result Body Mass Index 26.0 Const: General: alert and awake HEENT: Head: Yes normocephalic and Yes atraumatic Neck: Neck: Yes supple Resp: Auscultation: clear to auscultation bilaterally Cardio: Heart sounds: S1 normal heart sound present and S2 normal heart sound present GI: Palpation (GI): Soft to palpation and nontender Psych: Appearance: grossly normal Objective Data Labs CBC & Chem 7: 03/08/22 08:04 03/06/22 04:48 Labs: Laboratory Results - last 24 hr 03/07/22 03/07/22 03/08/22 16:16 20:53 07:28 WBC RBC Hgb Hct MCV MCH MCHC RDW Plt Count MPV Absolute Nucleated RBC Nucleated RBC % (auto) POC Glucose 123 H 178 H 101 Blood Type Antibody Screen 03/08/22 03/08/22 08:03 08:04 WBC 14.2 H RBC 2.54 L Hgb 7.8 L Hct 24.5 L MCV 96.5 MCH 30.7 MCHC 31.8 RDW 15.5 Plt Count 294 MPV 11.9 Absolute Nucleated RBC 0.000 Nucleated RBC % (auto) 0.0 POC Glucose Blood Type A Positive Antibody Screen NEGATIVE Microbiology Microbiology Results: Microbiology 03/05/22 17:23 Blood - Venous Blood Culture - Preliminary No growth after 48 hours. 03/05/22 17:23 Blood - Venous Blood Culture - Preliminary No growth after 48 hours. Procedures Date of Service Date of Service: 03/08/22 Assessment & Plan Assessment and plan (1) ESRD (end stage renal disease): Status: Acute (2) Wet gangrene: Status: Acute (3) Anemia: Status: Acute Plan s/p HD yesterday usually had HD m-w- at [facility] unit admitted with wet gangrene deemed not salvageable and plan for amputation this week REC HD tomorrow renal diet phosphate binders dose medication for dialysis patient DANIEL per protocol on Zosyn Time Spent With Patient Time: Total time managing care of this patient today ____ minutes. Progress Note: Quality Stroke Does the patient have a stroke diagnosis?: No
[2022-03-08 11:40] LABS: Glucose, Whole Blood 94 mg/dL (60-115)
[2022-03-08] MEDS: Morphine Sulfate 4 MG/ML CARTRIDGE IVPUSH ×2 (12:26→22:10)
--- NOTE | 2022-03-08 13:36 | P.CONAN_ITS ---
[facility] Active Problems Active Problems: All Active Problems (Updated 03/06/22 @ 11:37 by Meño Pacheco MD) Anemia (Acute) Wet gangrene (Acute) ESRD (end stage renal disease) (Acute) Gangrene of right foot (Acute) Wet gangrene (Acute) Open wound, lower leg (Acute) Osteoarthritis of left shoulder (Acute) Left shoulder pain (Acute) Hypertension (Acute) End-stage renal disease on hemodialysis (Acute) S/P unilateral BKA (below knee amputation) (Acute) PAD (peripheral artery disease) (Acute) Diabetes mellitus, with long-term current use of insulin (Acute) Anemia in chronic kidney disease (Acute) Mixed hyperlipidemia (Acute) Diarrhea (Acute) Infected blister of great toe of left foot (Acute) Microalbuminuria (Acute) Past Medical History Medical History Anemia in chronic kidney disease Below-knee amputation of left lower extremity Diabetes Diabetes mellitus, with long-term current use of insulin Diarrhea End stage renal disease End-stage renal disease on hemodialysis High cholesterol History of leg amputation Hypertension Microalbuminuria Mixed hyperlipidemia PAD (peripheral artery disease) Preoperative cardiovascular examination Functional capacity: uses cane/walker Family History Family History Father Myocardial infarction Mother No problems noted. Family history of problems with anesthesia: No Surgical History Surgical History History of eye surgery History of laminectomy History of surgery History of surgery on arm S/P CABG x 4 S/P unilateral BKA (below knee amputation) History of Problems with Anesthesia: No Social History Social History Household Members: Children Housing: House Do you presently have visiting nurse or other home services: Yes (nursing aid) Alcohol intake: never Patient Tobacco Use Status: Never used Tobacco e-Cigarette/Vaping Use: Never Used Second Hand Smoke Exposure: No Advance Directives Date on File: 06/15/21 service: No Current occupational status: retired and disabled Cognitive needs: Yes Hearing needs: No Vision needs: No Meds Allergies Allergy/AdvReac Type Severity Reaction Status Date / Time lisinopril Allergy Intermediate hyperkalemi Verified 01/23/22 14:01 a lidocaine [From LIDOPRIL] Allergy Mild COUGH Verified 01/23/22 14:01 prilocaine [From LIDOPRIL] Allergy Mild COUGH Verified 01/23/22 14:01 canagliflozin [Invokana] AdvReac Mild back pain Verified 01/23/22 14:01 Hydralazine-HCTZ Allergy Unknown Unknown Uncoded 01/11/22 10:25 Active Medications: Current Medications Acetaminophen (Acetaminophen 325 Mg Tablet) 650 mg PO Q6H PRN PRN Reason: Pain, Mild (Pain Scale 1-3) Last Admin: 03/07/22 11:03 Dose: 650 mg Amlodipine Besylate (Amlodipine Besylate 5 Mg Tablet) 5 mg PO BEDTIME [facility]; Protocol Last Admin: 03/07/22 21:13 Dose: 5 mg Aspirin (Aspirin Enteric Coated 81 Mg Tablet.) 81 mg PO DAILY [facility] Last Admin: 03/08/22 11:08 Dose: Not Given Atorvastatin Calcium (Atorvastatin Calcium 40 Mg Tablet) 40 mg PO BEDTIME [facility] Last Admin: 03/07/22 21:13 Dose: 40 mg Bumetanide (Bumetanide 1 Mg Tablet) 1 mg PO DAILY [facility]; Protocol Last Admin: 03/08/22 11:08 Dose: Not Given Carvedilol (Carvedilol 25 Mg Tablet) 25 mg PO BID [facility]; Protocol Last Admin: 03/08/22 11:08 Dose: Not Given Dextrose (Dextrose 50 % 25 Gm/50 Ml Syringe) 25 gm IVPUSH Q15M PRN; Protocol PRN Reason: per Hypoglycemia Standing Ord. Docusate Sodium (Docusate Sodium 100 Mg Capsule) 100 mg PO DAILY PRN PRN Reason: Constipation Docusate Sodium (Docusate Sodium 100 Mg Capsule) 100 mg PO DAILY [facility] Last Admin: 03/08/22 11:09 Dose: Not Given Ergocalciferol (Ergocalciferol (Vitamin D2) 1,250 Mcg Capsule) 1,250 mcg PO Mo [facility]AN[facility] Ferrous Sulfate (Ferrous Sulfate 324 Mg Tablet.) 324 mg PO TID [facility] Last Admin: 03/08/22 11:09 Dose: Not Given Glucose (Glucose Gel 15 Gm Gel..Gram.) 15 gm PO Q15M PRN; Protocol PRN Reason: per Hypoglycemia Standing Ord. Heparin Sodium (Porcine) (Heparin Sodium,Porcine 5,000 Unit/Ml Vial) 5,000 unit SUBCUT Q8H [facility] Last Admin: 03/07/22 09:29 Dose: 5,000 unit Piperacillin Sod/Tazobactam (Sod 2.25 gm/ Sodium Chloride) 50 mls @ 100 mls/hr IV Q6H [facility] Last Admin: 03/08/22 12:31 Dose: 100 mls/hr Insulin Human Lispro (Insulin Lispro 100 Unit/Ml 3 Ml Vial) 0 unit SUBCUT QIDACHS [facility]; Protocol Last Admin: 03/08/22 09:25 Dose: Not Given Losartan Potassium (Losartan Potassium 50 Mg Tablet) 100 mg PO DAILY [facility]; Protocol Last Admin: 03/08/22 11:09 Dose: Not Given Morphine Sulfate (Morphine Sulfate 4 Mg/Ml Cartridge) 4 mg IVPUSH Q4H PRN; Protocol PRN Reason: Pain, Severe (Pain Scale 7-10) Last Admin: 03/08/22 12:26 Dose: 4 mg Multivitamins/Vitamin C (Multivitamin Tablet) 1 tab PO DAILY [facility] Last Admin: 03/08/22 11:10 Dose: Not Given Ondansetron HCl (Ondansetron Hcl 4 Mg/2 Ml Vial) 4 mg IVPUSH Q8H PRN PRN Reason: Nausea and Vomiting Pharmacy Consult (Consult Rx Perform Med Rec) 1 each MISCELLANE ONCE PRN PRN Reason: Consult order Sevelamer Carbonate (Sevelamer Carbonate Tablet 800 Mg Tablet) 800 mg PO TID [facility] Last Admin: 03/08/22 11:10 Dose: Not Given Sodium Chloride (0.9 % Sodium Chloride Flush 3 Ml Syringe) 3 ml IVFLUSH QSHIFT [facility] Last Admin: 03/08/22 11:08 Dose: Not Given Ursodiol (Ursodiol 300 Mg Capsule) 300 mg PO BID [facility] Last Admin: 03/08/22 11:10 Dose: Not Given Home Medications Medication Instructions Recorded Confirmed Last Taken Type sevelamer carbonate 800 mg tablet 800 mg PO TID 01/22/20 03/05/22 06/01/21 History amlodipine 5 mg tablet 5 mg PO BEDTIME 06/01/21 03/05/22 05/31/21 History aspirin 81 mg tablet,delayed 1 tab PO DAILY 06/01/21 03/05/22 06/01/21 History release carvedilol 25 mg tablet 1 tab PO BID 06/01/21 03/05/22 06/01/21 History ursodiol 300 mg capsule 1 cap PO BID 06/01/21 03/05/22 06/01/21 History losartan 100 mg tablet 100 mg PO DAILY 01/23/22 03/05/22 Unknown History Exam Exam Date and Time: March 08, 2022 1336 Height,Weight and Vital Signs: Height 5 ft 5 in Weight 71 kg Last Vital Signs Temp 98.3 F 03/08/22 07:24 Pulse 65 03/08/22 07:24 Resp 16 03/08/22 07:24 BP 134/59 L 03/08/22 07:24 Pulse Ox 95 03/08/22 07:24 O2 Del Method 03/08/22 07:24 Pertinent Lab Results Pertinent Lab Results: Laboratory Tests 03/05/22 03/05/22 03/05/22 17:23 17:23 17:23 WBC 16.1 H RBC 2.85 L D Hgb 8.8 L D Hct 26.7 L D MCV 93.7 MCH 30.9 MCHC 33.0 RDW 15.2 Plt Count 260 D MPV 12.2 Immature Gran % (Auto) 0.6 H Neut % (Auto) 91.3 H Lymph % (Auto) 3.0 L [place] % (Auto) 3.2 Eos % (Auto) 1.5 Baso % (Auto) 0.4 Lymph # (Auto) 0.5 L [place] # (Auto) 0.5 Eos # (Auto) 0.2 Baso # (Auto) 0.1 Abs Immat Gran (auto) 0.09 H Absolute Neuts (auto) 14.7 H Absolute Nucleated RBC 0.000 Nucleated RBC % (auto) 0.0 Smear Tech's Comments VERIFIED ESR 111 H PT INR aPTT Heparin Protocol Sodium Potassium Chloride Carbon Dioxide Anion Gap BUN Creatinine Estim Creat Clear Calc Estimated GFR POC Glucose Random Glucose Lactic Acid 0.9 Calcium Magnesium Total Bilirubin AST ALT Alkaline Phosphatase C-Reactive Protein Total Protein Albumin COVID-19 ([facility]ANE) COVID-19 Clin Com Blood Type Antibody Screen 03/05/22 03/05/22 03/05/22 17:23 18:14 23:59 WBC RBC Hgb Hct MCV MCH MCHC RDW Plt Count MPV Immature Gran % (Auto) Neut % (Auto) Lymph % (Auto) [place] % (Auto) Eos % (Auto) Baso % (Auto) Lymph # (Auto) [place] # (Auto) Eos # (Auto) Baso # (Auto) Abs Immat Gran (auto) Absolute Neuts (auto) Absolute Nucleated RBC Nucleated RBC % (auto) Smear Tech's Comments ESR PT 15.3 H INR 1.3 H aPTT Heparin Protocol 62.7 Sodium 138 Potassium 3.7 Chloride 96 Carbon Dioxide 30 H Anion Gap 16 BUN 24 H Creatinine 2.94 H Estim Creat Clear Calc 18.8 Estimated GFR 21 POC Glucose Random Glucose 108 Lactic Acid Calcium 9.1 Magnesium 1.9 Total Bilirubin 0.7 AST 32 ALT 21 Alkaline Phosphatase 61 C-Reactive Protein 15.45 H Total Protein 6.9 Albumin 3.0 L COVID-19 ([facility]ANE) Negative COVID-19 [employer] See Note Blood Type Antibody Screen 03/06/22 03/06/22 03/06/22 04:48 04:48 07:29 WBC 14.2 H RBC 2.65 L Hgb 8.3 L Hct 25.5 L MCV 96.2 MCH 31.3 MCHC 32.5 RDW 15.4 Plt Count 253 MPV 11.8 Immature Gran % (Auto) 0.4 Neut % (Auto) 87.3 H Lymph % (Auto) 4.9 L [place] % (Auto) 4.6 Eos % (Auto) 2.2 Baso % (Auto) 0.6 Lymph # (Auto) 0.7 L [place] # (Auto) 0.7 Eos # (Auto) 0.3 Baso # (Auto) 0.1 Abs Immat Gran (auto) 0.06 H Absolute Neuts (auto) 12.4 H Absolute Nucleated RBC 0.000 Nucleated RBC % (auto) 0.0 Smear Tech's Comments ESR PT INR aPTT Heparin Protocol 37.7 L D Sodium 136 Potassium 3.9 Chloride 95 L Carbon Dioxide 30 H Anion Gap 15 BUN 32 H Creatinine 3.55 H Estim Creat Clear Calc 15.6 Estimated GFR 17 POC Glucose Random Glucose 95 Lactic Acid Calcium 9.0 Magnesium Total Bilirubin AST ALT Alkaline Phosphatase C-Reactive Protein Total Protein Albumin COVID-19 (ZANE) COVID-19 [employer] Blood Type Antibody Screen 03/06/22 03/06/22 03/06/22 07:38 11:52 14:34 WBC RBC Hgb Hct MCV MCH MCHC RDW Plt Count MPV Immature Gran % (Auto) Neut % (Auto) Lymph % (Auto) [place] % (Auto) Eos % (Auto) Baso % (Auto) Lymph # (Auto) [place] # (Auto) Eos # (Auto) Baso # (Auto) Abs Immat Gran (auto) Absolute Neuts (auto) Absolute Nucleated RBC Nucleated RBC % (auto) Smear Tech's Comments ESR PT INR aPTT Heparin Protocol 38.6 L Sodium Potassium Chloride Carbon Dioxide Anion Gap BUN Creatinine Estim Creat Clear Calc Estimated GFR POC Glucose 77 237 H Random Glucose Lactic Acid Calcium Magnesium Total Bilirubin AST ALT Alkaline Phosphatase C-Reactive Protein Total Protein Albumin COVID-19 ([facility]ANE) COVID-[employer] Blood Type Antibody Screen 03/06/22 03/07/22 03/07/22 20:32 07:27 10:53 WBC RBC Hgb Hct MCV MCH MCHC RDW Plt Count MPV Immature Gran % (Auto) Neut % (Auto) Lymph % (Auto) [place] % (Auto) Eos % (Auto) Baso % (Auto) Lymph # (Auto) [place] # (Auto) Eos # (Auto) Baso # (Auto) Abs Immat Gran (auto) Absolute Neuts (auto) Absolute Nucleated RBC Nucleated RBC % (auto) Smear Tech's Comments ESR PT INR aPTT Heparin Protocol Sodium Potassium Chloride Carbon Dioxide Anion Gap BUN Creatinine Estim Creat Clear Calc Estimated GFR POC Glucose 209 H 130 H 220 H Random Glucose Lactic Acid Calcium Magnesium Total Bilirubin AST ALT Alkaline Phosphatase C-Reactive Protein Total Protein Albumin COVID-19 ([facility]ANE) COVID-[employer] Blood Type Antibody Screen 03/07/22 03/07/22 03/08/22 16:16 20:53 07:28 WBC RBC Hgb Hct MCV MCH MCHC RDW Plt Count MPV Immature Gran % (Auto) Neut % (Auto) Lymph % (Auto) [place] % (Auto) Eos % (Auto) Baso % (Auto) Lymph # (Auto) [place] # (Auto) Eos # (Auto) Baso # (Auto) Abs Immat Gran (auto) Absolute Neuts (auto) Absolute Nucleated RBC Nucleated RBC % (auto) Smear Tech's Comments ESR PT INR aPTT Heparin Protocol Sodium Potassium Chloride Carbon Dioxide Anion Gap BUN Creatinine Estim Creat Clear Calc Estimated GFR POC Glucose 123 H 178 H 101 Random Glucose Lactic Acid Calcium Magnesium Total Bilirubin AST ALT Alkaline Phosphatase C-Reactive Protein Total Protein Albumin COVID-19 ([facility]ANE) COVID-19 [employer] Blood Type Antibody Screen 03/08/22 03/08/22 03/08/22 08:03 08:04 11:22 WBC 14.2 H RBC 2.54 L Hgb 7.8 L Hct 24.5 L MCV 96.5 MCH 30.7 MCHC 31.8 RDW 15.5 Plt Count 294 MPV 11.9 Immature Gran % (Auto) Neut % (Auto) Lymph % (Auto) [place] % (Auto) Eos % (Auto) Baso % (Auto) Lymph # (Auto) [place] # (Auto) Eos # (Auto) Baso # (Auto) Abs Immat Gran (auto) Absolute Neuts (auto) Absolute Nucleated RBC 0.000 Nucleated RBC % (auto) 0.0 Smear Tech's Comments ESR PT INR aPTT Heparin Protocol Sodium Potassium Chloride Carbon Dioxide Anion Gap BUN Creatinine Estim Creat Clear Calc Estimated GFR POC Glucose 94 Random Glucose Lactic Acid Calcium Magnesium Total Bilirubin AST ALT Alkaline Phosphatase C-Reactive Protein Total Protein Albumin COVID-19 ([facility]) COVID-19 Clin Com Blood Type A Positive Antibody Screen NEGATIVE Assessment and Plan Final Anesthetic Review Family History of Problems with Anesthesia: No History of Problems with Anesthesia: No
[2022-03-08 16:00] LABS: Glucose, Whole Blood 63 mg/dL (60-115)
[2022-03-08] MEDS: Dextrose 50 % 25 GM/50 ML SYRINGE IVPUSH (16:22)
--- NOTE | 2022-03-08 17:10 | P.OP_ITS ---
Operative Note Operative Note Date of Service: 03/08/22 Narrative: Operative note by [facility] Preoperative diagnosis: 1.Right lower extremity ischemia with gangrene 2 peripheral vascular disease Postoperative diagnosis: Same Procedure: 1. Right below-knee amputation 2. Myodesis Surgeon:August Swan M.D. Systems Librarian: None Anesthesia: General Specimens: 1 Drains: None Estimated blood loss: 100 mL Indications: 76-year-old gentleman with a history of peripheral vascular disease and diabetes presents to the hospital with gangrene. He had non reconstructible arterial disease. He now presents for right below-knee amputation. The patient has signed the informed consent after reviewing risks, complications, benefits, and alternatives previously discussed with the patient. The patient was given the opportunity to ask any additional questions or voice any concerns. All questions were answered to the patient's satisfaction. Graphics Coordinator was present Procedure in detail: Patient was brought to the operating room prior to which a time-out was called for patient identification site verification right leg was prepped and draped in standard surgical fashion curvilinear incision was made approximately 10 cm below the tibial tuberosity. A reverse we brought down the incision through the skin subQ and then we created a posterior flap approximately 1 and half times the diameter of the leg. Once this was accomplished we cut down through the muscle beds and we were a did identify the anterior tibial and posterior tibial arteries these were ligated with 2-0 silk ties. We then created a reverse hockey stick power cut through the tibia. Approximately 2 in above we created a cut across they fibula. We used file to file it down. And we then we used a drill to go medially and laterally through the tibia. We used 2 0 poly Sorb to buttress the muscle through these power holes. Once this was all accomplished we irrigated the entire tissue bed clean. Adequate hemostasis was obtained with electrocautery we raise the posterior flap and reapproximated the fascial layers with 2-0 Polysorb in an interrupted fashion in multiple layers. Once this was done we closed the skin with a 2 0 nylon in a mattress fashion. Skin clips were used. Xeroform and a sterile dressing were applied. At the end the case sponge instrument counts were correct. Patient tolerated the procedure well. Returned to recovery with stable vitals. This note is constructed using voice recognition software. While every effort has been made to ensure accuracy, global director air and climate change errors may have been included. Thank you for allowing me to participate in the care of your patient. Yours sincerely, August Swan MD, FACS, R.P.V.I.
--- NOTE | 2022-03-08 17:10 | MHC.SHP ---
Pre-Procedural Eval Section A Date of Service: 03/08/22 The patient is an INPATIENT: Yes Changes since office visit: Yes Patient answered all questions The History & Physical has been completed within 30 days and I have reviewed it.: Yes Section B Chief Complaint: wet gangrene Allergies: Allergies Allergy/AdvReac Type Severity Reaction Status Date / Time lisinopril Allergy Intermediate hyperkalemi Verified 01/23/22 14:01 a lidocaine [From LIDOPRIL] Allergy Mild COUGH Verified 01/23/22 14:01 prilocaine [From LIDOPRIL] Allergy Mild COUGH Verified 01/23/22 14:01 canagliflozin [Invokana] AdvReac Mild back pain Verified 01/23/22 14:01 Hydralazine-HCTZ Allergy Unknown Unknown Uncoded 01/11/22 10:25 Plan I have reviewed the history and physical and performed a pertinent physical examination on my patient. No changes have occurred unless specified. Time Spent With Patient Time: Total time managing care of this patient today ____ minutes.
[2022-03-08 18:43] LABS: Glucose, Whole Blood 95 mg/dL (60-115)
[2022-03-08] MEDS: Atorvastatin Calcium 40 MG TABLET PO (22:03)
[2022-03-08] MEDS: amLODIPine Besylate 5 MG TABLET PO (22:03)
[2022-03-08] MEDS: carvediloL 25 MG TABLET PO (22:03)
[2022-03-08] MEDS: UrsodioL 300 MG CAPSULE PO (22:03)
[2022-03-08] MEDS: Ferrous Sulfate 324 MG TABLET.DR PO (22:03)
[2022-03-08] MEDS: Sevelamer Carbonate Tablet 800 MG TABLET PO (22:03)
[2022-03-08] MEDS: Acetaminophen 325 MG TABLET 650 MG PO (22:09)
[2022-03-08] MEDS: 0.9 % Sodium Chloride Flush 3 ML SYRINGE IVFLUSH (22:22)
[2022-03-09] MEDS: LORazepam 0.5 MG TABLET PO (02:34)
[2022-03-09] MEDS: Heparin Sodium,Porcine 5,000 UNIT/ML VIAL 5000 UNIT SUBCUT ×2 (02:35→17:43)
[2022-03-09 03:39] VITALS: BP 137/57; PULSE 64; RESP 18; TEMP 36.2; O2SAT 95
[2022-03-09] MEDS: Morphine Sulfate 4 MG/ML CARTRIDGE IVPUSH ×2 (05:01→08:37)
[2022-03-09] MEDS: Piperacillin Sodium/Tazobactam 2.25 GM in 0.9 % Sodium Chloride 50 ML IV ×3 (05:01→19:50)
[2022-03-09 06:53] VITALS: BP 119/56; PULSE 66; RESP 18; TEMP 36.6; O2SAT 96
[2022-03-09 07:14] LABS: Glucose, Whole Blood 161 mg/dL (60-115)
[2022-03-09] MEDS: Aspirin Enteric Coated 81 MG TABLET.DR PO (07:40)
[2022-03-09] MEDS: Docusate Sodium 100 MG CAPSULE PO (07:40)
[2022-03-09] MEDS: Multivitamin TABLET 1 TAB PO (07:40)
[2022-03-09] MEDS: Losartan Potassium 50 MG TABLET 100 MG PO (07:40)
[2022-03-09] MEDS: Sevelamer Carbonate Tablet 800 MG TABLET PO ×3 (07:40→19:51)
[2022-03-09] MEDS: Ferrous Sulfate 324 MG TABLET.DR PO ×3 (07:40→19:51)
[2022-03-09] MEDS: UrsodioL 300 MG CAPSULE PO ×2 (07:40→19:51)
[2022-03-09] MEDS: 0.9 % Sodium Chloride Flush 3 ML SYRINGE IVFLUSH ×3 (07:41→19:50)
[2022-03-09] MEDS: Insulin Lispro 100 UNIT/ML 3 ML VIAL SUBCUT ×2 (07:41→21:35)
[2022-03-09] MEDS: Bumetanide 1 MG TABLET PO (07:41)
[2022-03-09] MEDS: carvediloL 25 MG TABLET PO ×2 (07:41→19:51)
--- NOTE | 2022-03-09 09:48 | HO.VASCPN ---
Subjective Subjective Date of Service: 03/09/22 Patient reports: no new complaints and still having pain Interval history: Very pleasant 76-year-old gentleman status post BKA. Appears to be doing relatively well. No events overnight. Pain control seems to be an issue. No complaints. Now presents for follow-up. Physical Exam Vital Signs: Vital Signs: Last Vital Signs Temp 97.8 F 03/09/22 06:53 Pulse 66 03/09/22 06:53 Resp 18 03/09/22 06:53 BP 119/56 L 03/09/22 06:53 Pulse Ox 96 03/09/22 06:53 O2 Del Method 03/09/22 06:53 O2 Flow Rate 3 03/08/22 17:24 BMI result Body Mass Index 26.0 Const: General: cooperative, healthy appearing and no acute distress Orientation/consciousness: oriented to person, oriented to place and oriented to time HEENT: Head: Yes normal to inspection Neck: Carotids: no bruits Chest: Chest palpation & inspection: normal inspection of the chest Resp: Effort & Inspection: normal respiratory effort and able to speak in complete sentences Auscultation: clear to auscultation bilaterally Cardio: Rate: regular rate Heart sounds: S1 normal heart sound present and S2 normal heart sound present GI: Inspection: Yes normal to inspection Skin: Other: Stump dressing clean dry intact General skin exam: no rashes or lesions noted Wounds: no wounds Neuro: General: oriented to person, oriented to place, oriented to time and CN's II-XI intact bilaterally Extrem: General: Yes normal to inspection, Yes full ROM and Yes no clubbing, cyanosis or edema Psych: Appearance: grossly normal and well kempt Speech and movement: Normal speech and movement present Affect: normal affect Progress Note: A&P Assessment and plan (1) S/P unilateral BKA (below knee amputation): Status: Acute Assessment and Plan: Patient is doing well status post BKA. No interval issues will try to get pain under better control. Will plan for dressing change on Saturday. Would anticipate discharge early next week. Thank you for allowing us to assist in his care. Time Spent With Patient Time: Total time managing care of this patient today ____ minutes. Procedures Date of Service Date of Service: 03/09/22 Quality Stroke Does the patient have a stroke diagnosis?: No VTE Prior VTE?: No VTE Risk Level:: Medical - moderate - high VTE Device Contraindication: Treatment Not Indicated VTE Drug Contraindication: N/A - Med Ordered
--- NOTE | 2022-03-09 10:20 | P.PNIM_ITS ---
Subjective Subjective Date of Service: 03/09/22 Interval History: Postop day 1 for Right below-knee amputation 2.? Myodesis No pain Physical Exam Vital Signs: Vital Signs: Last Vital Signs Temp 97.8 F 03/09/22 06:53 Pulse 66 03/09/22 06:53 Resp 18 03/09/22 06:53 BP 119/56 L 03/09/22 06:53 Pulse Ox 96 03/09/22 06:53 O2 Del Method 03/09/22 06:53 O2 Flow Rate 3 03/08/22 17:24 BMI result Body Mass Index 26.0 Const: Other: General: AO X 3, no acute distress Resp: CTA bilateral CVS: S1,S2,RRR GI: +BS, NT, no distention Skin: Right foot amputation site dressing in place Neuro: motor grossly intact Psych: appropriate affect Objective Data Active Medications Acetaminophen (Acetaminophen 325 Mg Tablet) 650 mg PO Q6H PRN PRN Reason: Pain, Mild (Pain Scale 1-3) Last Admin: 03/08/22 22:09 Dose: 650 mg Documented By: RENY Amlodipine Besylate (Amlodipine Besylate 5 Mg Tablet) 5 mg PO BEDTIME [facility]; Protocol Last Admin: 03/08/22 22:03 Dose: 5 mg Documented By: RENY Aspirin (Aspirin Enteric Coated 81 Mg Tablet.) 81 mg PO DAILY [facility] Last Admin: 03/09/22 07:40 Dose: 81 mg Documented By: MARION Atorvastatin Calcium (Atorvastatin Calcium 40 Mg Tablet) 40 mg PO BEDTIME [facility] Last Admin: 03/08/22 22:03 Dose: 40 mg Documented By: RENY Bumetanide (Bumetanide 1 Mg Tablet) 1 mg PO DAILY [facility]; Protocol Last Admin: 03/09/22 07:41 Dose: 1 mg Documented By: MARION Carvedilol (Carvedilol 25 Mg Tablet) 25 mg PO BID [facility]; Protocol Last Admin: 03/09/22 07:41 Dose: 25 mg Documented By: MARION Dextrose (Dextrose 50 % 25 Gm/50 Ml Syringe) 25 gm IVPUSH Q15M PRN; Protocol PRN Reason: per Hypoglycemia Standing Ord. Docusate Sodium (Docusate Sodium 100 Mg Capsule) 100 mg PO DAILY PRN PRN Reason: Constipation Docusate Sodium (Docusate Sodium 100 Mg Capsule) 100 mg PO DAILY [facility] Last Admin: 03/09/22 07:40 Dose: 100 mg Documented By: MARION Ergocalciferol (Ergocalciferol (Vitamin D2) 1,250 Mcg Capsule) 1,250 mcg PO Mo [facility] Ferrous Sulfate (Ferrous Sulfate 324 Mg Tablet.Dr) 324 mg PO TID [facility] Last Admin: 03/09/22 07:40 Dose: 324 mg Documented By: MARION Gabapentin (Gabapentin 100 Mg Capsule) 100 mg PO BID [facility] Glucose (Glucose Gel 15 Gm Gel..Gram.) 15 gm PO Q15M PRN; Protocol PRN Reason: per Hypoglycemia Standing Ord. Heparin Sodium (Porcine) (Heparin Sodium,Porcine 5,000 Unit/Ml Vial) 5,000 unit SUBCUT Q8H [facility] Last Admin: 03/09/22 02:35 Dose: 5,000 unit Documented By: RENY Piperacillin Sod/Tazobactam (Sod 2.25 gm/ Sodium Chloride) 50 mls @ 100 mls/hr IV Q6H [facility] Last Infusion: 03/09/22 05:41 Dose: 0 mls/hr Documented By: RENY Insulin Human Lispro (Insulin Lispro 100 Unit/Ml 3 Ml Vial) 0 unit SUBCUT QIDACHS [facility]; Protocol Last Admin: 03/09/22 07:41 Dose: 2 unit Documented By: MARION Losartan Potassium (Losartan Potassium 50 Mg Tablet) 100 mg PO DAILY [facility]; Protocol Last Admin: 03/09/22 07:40 Dose: 100 mg Documented By: MARION Morphine Sulfate (Morphine Sulfate 4 Mg/Ml Cartridge) 4 mg IVPUSH Q4H PRN; Protocol PRN Reason: Pain, Severe (Pain Scale 7-10) Last Admin: 03/09/22 08:37 Dose: 4 mg Documented By: MARION Multivitamins/Vitamin C (Multivitamin Tablet) 1 tab PO DAILY [facility] Last Admin: 03/09/22 07:40 Dose: 1 tab Documented By: MARION Ondansetron HCl (Ondansetron Hcl 4 Mg/2 Ml Vial) 4 mg IVPUSH Q8H PRN PRN Reason: Nausea and Vomiting Pharmacy Consult (Consult Rx Perform Med Rec) 1 each MISCELLANE ONCE PRN PRN Reason: Consult order Sevelamer Carbonate (Sevelamer Carbonate Tablet 800 Mg Tablet) 800 mg PO TID [facility] Last Admin: 03/09/22 07:40 Dose: 800 mg Documented By: MARION Sodium Chloride (0.9 % Sodium Chloride Flush 3 Ml Syringe) 3 ml IVFLUSH QSHIFT [facility] Last Admin: 03/09/22 07:41 Dose: 3 ml Documented By: MARION Ursodiol (Ursodiol 300 Mg Capsule) 300 mg PO BID [facility] Last Admin: 03/09/22 07:40 Dose: 300 mg Documented By: MARION Labs 03/08/22 08:04 03/06/22 04:48 Labs: Laboratory Results - last 24 hr 03/08/22 03/08/22 03/08/22 11:22 15:28 17:33 POC Glucose 94 63 95 03/09/22 06:53 POC Glucose 161 H Assessment and Plan (1) Wet gangrene: Status: Acute (2) ESRD (end stage renal disease): Status: Acute Plan 76-year-old male with past medical history of peripheral vascular disease, diabetes, ESRD on dialysis, presents to the hospital with complaints of right foot? infection found to have gangrenous foot. # ? Wet gangrene--deemed not salvageable, s/p Right below-knee amputation 2.? Myodesis on 03/08/22, POD1. Postop care by surgery including dressing changes. Probable does not need antibiotics at this point I will check with Dr. Swan #? diabetes--SSI, diabetic diet #PAD--no indication for heparin drip, ASA # HLD--Lipitor # ESRD - on dialysis MWF - Nephro following DVT PPX: heparin Need for admit: Post surgery care. And need for placement. Time Spent With Patient Time: Total time managing care of this patient today ____ minutes. Quality Stroke Does the patient have a stroke diagnosis?: No VTE Prior VTE?: No VTE Risk Level:: Medical - moderate - high VTE Device Contraindication: Treatment Not Indicated VTE Drug Contraindication: N/A - Med Ordered
[2022-03-09 13:57] LABS: Glucose, Whole Blood 147 mg/dL (60-115)
[2022-03-09 15:18] VITALS: BP 164/63; PULSE 71; RESP 17; TEMP 36.3; O2SAT 98
--- NOTE | 2022-03-09 15:29 | HO.POSTANES ---
Post Anesthesia Evaluation Post Anesthesia Evaluation Vital Signs: Vital Signs Temp Pulse Resp BP Pulse Ox O2 Del Method 03/09/22 15:18 97.4 F 71 17 164/63 H 98 Room Air 03/09/22 06:53 97.8 F 66 18 119/56 L 96 Room Air 03/09/22 03:39 97.2 F 64 18 137/57 L 95 Room Air Anesthesia: General Mental Status: Awake Pain Control: Satisfactory (having pain) Nausea/Vomiting: None Hydration: Adequate Anesthesia-Related Issues: No Anes. Related Issues
[2022-03-09 16:37] LABS: Glucose, Whole Blood 136 mg/dL (60-115)
[2022-03-09 19:35] VITALS: BP 131/53; PULSE 70; TEMP 36.5; O2SAT 93
[2022-03-09] MEDS: Atorvastatin Calcium 40 MG TABLET PO (19:50)
[2022-03-09] MEDS: amLODIPine Besylate 5 MG TABLET PO (19:51)
[2022-03-09] MEDS: Gabapentin 100 MG CAPSULE PO (19:51)
[2022-03-09 21:04] LABS: Glucose, Whole Blood 226 mg/dL (60-115)
[2022-03-10] MEDS: Piperacillin Sodium/Tazobactam 2.25 GM in 0.9 % Sodium Chloride 50 ML IV ×4 (02:00→19:45)
[2022-03-10] MEDS: Heparin Sodium,Porcine 5,000 UNIT/ML VIAL 5000 UNIT SUBCUT ×3 (02:00→17:16)
[2022-03-10] MEDS: Morphine Sulfate 4 MG/ML CARTRIDGE IVPUSH (02:07)
[2022-03-10 03:54] VITALS: BP 157/56; PULSE 71; RESP 18; TEMP 36.7; O2SAT 94
[2022-03-10] MEDS: Acetaminophen 325 MG TABLET 650 MG PO ×3 (04:32→23:45)
[2022-03-10 07:48] VITALS: BP 138/58; PULSE 67; RESP 18; TEMP 37.4; O2SAT 96
--- NOTE | 2022-03-10 07:52 | P.PNIM_ITS ---
Subjective Subjective Date of Service: 03/10/22 Interval History: Postop day 2 for Right below-knee amputation 2.? Myodesis No pain Physical Exam Vital Signs: Vital Signs: Last Vital Signs Temp 99.4 F 03/10/22 07:48 Pulse 67 03/10/22 07:48 Resp 18 03/10/22 07:48 BP 138/58 L 03/10/22 07:48 Pulse Ox 96 03/10/22 07:48 O2 Del Method 03/10/22 07:48 O2 Flow Rate 3 03/08/22 17:24 BMI result Body Mass Index 26.0 Const: Other: General: Alert oriented to self, place Resp: CTA bilateral CVS: S1,S2,RRR GI: +BS, NT, no distention Skin: Right foot amputation site dressing in place Neuro: motor grossly intact Psych: appropriate affect Objective Data Active Medications Acetaminophen (Acetaminophen 325 Mg Tablet) 650 mg PO Q6H PRN PRN Reason: Pain, Mild (Pain Scale 1-3) Last Admin: 03/10/22 04:32 Dose: 650 mg Documented By: RAEANN Amlodipine Besylate (Amlodipine Besylate 5 Mg Tablet) 5 mg PO BEDTIME [facility]; Protocol Last Admin: 03/09/22 19:51 Dose: 5 mg Documented By: RAEANN Aspirin (Aspirin Enteric Coated 81 Mg Tablet.) 81 mg PO DAILY [facility] Last Admin: 03/09/22 07:40 Dose: 81 mg Documented By: MARION Atorvastatin Calcium (Atorvastatin Calcium 40 Mg Tablet) 40 mg PO BEDTIME [facility] Last Admin: 03/09/22 19:50 Dose: 40 mg Documented By: RAEANN Bumetanide (Bumetanide 1 Mg Tablet) 1 mg PO DAILY [facility]; Protocol Last Admin: 03/09/22 07:41 Dose: 1 mg Documented By: MARION Carvedilol (Carvedilol 25 Mg Tablet) 25 mg PO BID [facility]; Protocol Last Admin: 03/09/22 19:51 Dose: 25 mg Documented By: RAEANN Dextrose (Dextrose 50 % 25 Gm/50 Ml Syringe) 25 gm IVPUSH Q15M PRN; Protocol PRN Reason: per Hypoglycemia Standing Ord. Docusate Sodium (Docusate Sodium 100 Mg Capsule) 100 mg PO DAILY PRN PRN Reason: Constipation Docusate Sodium (Docusate Sodium 100 Mg Capsule) 100 mg PO DAILY [facility] Last Admin: 03/09/22 07:40 Dose: 100 mg Documented By: MARION Ergocalciferol (Ergocalciferol (Vitamin D2) 1,250 Mcg Capsule) 1,250 mcg PO Mo [facility] Ferrous Sulfate (Ferrous Sulfate 324 Mg Tablet.) 324 mg PO TID [facility] Last Admin: 03/09/22 19:51 Dose: 324 mg Documented By: RAEANN Gabapentin (Gabapentin 100 Mg Capsule) 100 mg PO BID [facility] Last Admin: 03/09/22 19:51 Dose: 100 mg Documented By: RAEANN Glucose (Glucose Gel 15 Gm Gel..Gram.) 15 gm PO Q15M PRN; Protocol PRN Reason: per Hypoglycemia Standing Ord. Heparin Sodium (Porcine) (Heparin Sodium,Porcine 5,000 Unit/Ml Vial) 5,000 unit SUBCUT Q8H [facility] Last Admin: 03/10/22 02:00 Dose: 5,000 unit Documented By: RAEANN Piperacillin Sod/Tazobactam (Sod 2.25 gm/ Sodium Chloride) 50 mls @ 100 mls/hr IV Q6H [facility] Last Infusion: 03/10/22 02:45 Dose: 0 mls/hr Documented By: AREANN Insulin Human Lispro (Insulin Lispro 100 Unit/Ml 3 Ml Vial) 0 unit SUBCUT QIDACHS [facility]; Protocol Last Admin: 03/09/22 21:35 Dose: 4 unit Documented By: RAEANN Losartan Potassium (Losartan Potassium 50 Mg Tablet) 100 mg PO DAILY [facility]; P rotocol Last Admin: 03/09/22 07:40 Dose: 100 mg Documented By: MARION Morphine Sulfate (Morphine Sulfate 4 Mg/Ml Cartridge) 4 mg IVPUSH Q4H PRN; Protocol PRN Reason: Pain, Severe (Pain Scale 7-10) Last Admin: 03/10/22 02:07 Dose: 4 mg Documented By: RAEANN Multivitamins/Vitamin C (Multivitamin Tablet) 1 tab PO DAILY [facility] Last Admin: 03/09/22 07:40 Dose: 1 tab Documented By: MARION Ondansetron HCl (Ondansetron Hcl 4 Mg/2 Ml Vial) 4 mg IVPUSH Q8H PRN PRN Reason: Nausea and Vomiting Pharmacy Consult (Consult Rx Perform Med Rec) 1 each MISCELLANE ONCE PRN PRN Reason: Consult order Sevelamer Carbonate (Sevelamer Carbonate Tablet 800 Mg Tablet) 800 mg PO TID [facility] Last Admin: 03/09/22 19:51 Dose: 800 mg Documented By: RAEANN Sodium Chloride (0.9 % Sodium Chloride Flush 3 Ml Syringe) 3 ml IVFLUSH QSHIFT [facility] Last Admin: 03/09/22 19:50 Dose: 3 ml Documented By: RAEANN Ursodiol (Ursodiol 300 Mg Capsule) 300 mg PO BID [facility] Last Admin: 03/09/22 19:51 Dose: 300 mg Documented By: RAEANN Labs 03/08/22 08:04 03/06/22 04:48 Labs: Laboratory Results - last 24 hr 03/09/22 03/09/22 03/09/22 13:54 16:27 20:56 POC Glucose 147 H 136 H 226 H Assessment and Plan (1) Wet gangrene: Status: Acute (2) ESRD (end stage renal disease): Status: Acute Plan 76-year-old male with past medical history of peripheral vascular disease, diabetes, ESRD on dialysis, presents to the hospital with complaints of right foot? infection found to have gangrenous foot. # ? Wet gangrene--deemed not salvageable, s/p Right below-knee amputation and? Myodesis on 03/08/22, POD2. Postop care by surgery including dressing changes. Probable does not need antibiotics at this point I will check with Dr. Swan #? Diabetes--SSI, diabetic diet #PAD--no indication for heparin drip, ASA # HLD--Lipitor # ESRD - on dialysis MWF - Nephro following #Hard of hearing --outpatient hearing testing DVT PPX: heparin Need for admit: Post surgery care. And need for placement. Time Spent With Patient Time: Total time managing care of this patient today ____ minutes. Quality Stroke Does the patient have a stroke diagnosis?: No VTE Prior VTE?: No VTE Risk Level:: Medical - moderate - high VTE Device Contraindication: Treatment Not Indicated VTE Drug Contraindication: N/A - Med Ordered
[2022-03-10 07:57] LABS: Glucose, Whole Blood 84 mg/dL (60-115)
[2022-03-10] MEDS: Bumetanide 1 MG TABLET PO (08:28)
[2022-03-10] MEDS: UrsodioL 300 MG CAPSULE PO ×2 (08:28→20:45)
[2022-03-10] MEDS: Losartan Potassium 50 MG TABLET 100 MG PO (08:28)
[2022-03-10] MEDS: Sevelamer Carbonate Tablet 800 MG TABLET PO ×3 (08:28→19:45)
[2022-03-10] MEDS: Multivitamin TABLET 1 TAB PO (08:28)
[2022-03-10] MEDS: Gabapentin 100 MG CAPSULE PO (08:29)
[2022-03-10] MEDS: Docusate Sodium 100 MG CAPSULE PO (08:29)
[2022-03-10] MEDS: carvediloL 25 MG TABLET PO ×2 (08:29→19:45)
[2022-03-10] MEDS: Aspirin Enteric Coated 81 MG TABLET.DR PO (08:29)
[2022-03-10] MEDS: Ferrous Sulfate 324 MG TABLET.DR PO ×3 (08:29→19:45)
[2022-03-10] MEDS: 0.9 % Sodium Chloride Flush 3 ML SYRINGE IVFLUSH ×3 (08:32→19:46)
[2022-03-10 11:47] LABS: Glucose, Whole Blood 165 mg/dL (60-115)
[2022-03-10] MEDS: Insulin Lispro 100 UNIT/ML 3 ML VIAL SUBCUT ×2 (12:05→20:45)
[2022-03-10 13:58] LABS: Glucose, Whole Blood 149 mg/dL (60-115)
--- NOTE | 2022-03-10 14:29 | PM.PNNEP ---
Subjective Subjective Date of Service: 03/10/22 Interval history: Pt is sleepy and diff to arouse; requested stat glucose; family at bedside Physical Exam Vital Signs: Vital Signs: Last Vital Signs Temp 99.4 F 03/10/22 07:48 Pulse 67 03/10/22 07:48 Resp 18 03/10/22 07:48 BP 138/58 L 03/10/22 07:48 Pulse Ox 96 03/10/22 07:48 O2 Del Method 03/10/22 07:48 O2 Flow Rate 3 03/08/22 17:24 BMI result Body Mass Index 26.0 Const: Other: Somnolent and diff to arouse HEENT: Other: Benign Neck: Other: No JVD Chest: Other: Clear lungs Cardio: Other: RRR Neuro: Other: Nonfocal Somnolent Diff to arouse Objective Data Labs 03/08/22 08:04 03/06/22 04:48 Labs: Laboratory Results - last 24 hr 03/09/22 03/09/22 03/10/22 16:27 20:56 07:47 POC Glucose 136 H 226 H 84 03/10/22 03/10/22 11:38 13:50 POC Glucose 165 H 149 H Microbiology Microbiology Results: Microbiology 03/05/22 17:23 Blood - Venous Blood Culture - Preliminary No growth after 48 hours. 03/05/22 17:23 Blood - Venous Blood Culture - Preliminary No growth after 48 hours. Procedures Date of Service Date of Service: 03/10/22 Assessment & Plan Assessment and plan (1) ESRD (end stage renal disease): Status: Acute (2) Anemia: Status: Acute (3) Hypertension: Status: Acute Plan /p HD yesterday usually HD -w- at [place] [facility] unit admitted with wet gangrene now s/p amputation REC Check stat glucose: ordered Monitor neuro signs closely HD Saturday renal diet phosphate binders dose medication for GFR<10 DANIEL per protocol Time Spent With Patient Time: Total time managing care of this patient today ____ minutes. Progress Note: Quality Stroke Does the patient have a stroke diagnosis?: No
[2022-03-10 16:00] VITALS: BP 143/63; PULSE 67; RESP 18; TEMP 36.6; O2SAT 97
[2022-03-10 16:21] LABS: Glucose, Whole Blood 135 mg/dL (60-115)
[2022-03-10] MEDS: Morphine Sulfate 2 MG/ML CARTRIDGE IVPUSH (19:44)
[2022-03-10] MEDS: amLODIPine Besylate 5 MG TABLET PO (19:45)
[2022-03-10] MEDS: Atorvastatin Calcium 40 MG TABLET PO (19:46)
[2022-03-10 20:00] VITALS: BP 128/51; PULSE 71; RESP 18; TEMP 36.8; O2SAT 96
[2022-03-10 20:21] LABS: Glucose, Whole Blood 183 mg/dL (60-115)
[2022-03-11] MEDS: Heparin Sodium,Porcine 5,000 UNIT/ML VIAL 5000 UNIT SUBCUT ×3 (01:31→16:29)
[2022-03-11] MEDS: Piperacillin Sodium/Tazobactam 2.25 GM in 0.9 % Sodium Chloride 50 ML IV ×4 (01:31→19:31)
[2022-03-11 03:27] VITALS: BP 147/58; PULSE 66; RESP 17; TEMP 37.2; O2SAT 93
[2022-03-11 08:00] VITALS: BP 128/60; PULSE 67; RESP 18; TEMP 37.2; O2SAT 94
[2022-03-11 08:01] LABS: Glucose, Whole Blood 130 mg/dL (60-115)
[2022-03-11] MEDS: 0.9 % Sodium Chloride Flush 3 ML SYRINGE IVFLUSH ×2 (08:16→16:32)
[2022-03-11] MEDS: Bumetanide 1 MG TABLET PO (08:16)
[2022-03-11] MEDS: Sevelamer Carbonate Tablet 800 MG TABLET PO ×2 (08:16→14:15)
[2022-03-11] MEDS: UrsodioL 300 MG CAPSULE PO (08:16)
[2022-03-11] MEDS: Losartan Potassium 50 MG TABLET 100 MG PO (08:16)
[2022-03-11] MEDS: Acetaminophen 325 MG TABLET 650 MG PO ×2 (08:16→14:15)
[2022-03-11] MEDS: carvediloL 25 MG TABLET PO (08:17)
[2022-03-11] MEDS: Docusate Sodium 100 MG CAPSULE PO (08:17)
[2022-03-11] MEDS: Aspirin Enteric Coated 81 MG TABLET.DR PO (08:17)
[2022-03-11] MEDS: Ferrous Sulfate 324 MG TABLET.DR PO ×2 (08:17→14:15)
[2022-03-11] MEDS: Multivitamin TABLET 1 TAB PO (08:17)
--- NOTE | 2022-03-11 08:17 | P.PNIM_ITS ---
Subjective Subjective Date of Service: 03/11/22 Interval History: He is awake, no complaint of pain, seems a bit confused Physical Exam Vital Signs: Vital Signs: Last Vital Signs Temp 98.9 F 03/11/22 08:00 Pulse 67 03/11/22 08:00 Resp 18 03/11/22 08:00 BP 128/60 03/11/22 08:00 Pulse Ox 94 03/11/22 08:00 O2 Del Method 03/11/22 08:00 O2 Flow Rate 3 03/08/22 17:24 BMI result Body Mass Index 26.0 Const: Other: General: Alert oriented to self, place Resp:? CTA bilateral CVS: S1,S2,RRR GI: +BS, NT, no distention Skin: Right foot amputation site dressing in place Neuro:? motor grossly intact Psych: appropriate affect Objective Data Active Medications Acetaminophen (Acetaminophen 325 Mg Tablet) 650 mg PO Q6H PRN PRN Reason: Pain, Mild (Pain Scale 1-3) Last Admin: 03/10/22 23:45 Dose: 650 mg Documented By: RAEANN Amlodipine Besylate (Amlodipine Besylate 5 Mg Tablet) 5 mg PO BEDTIME [facility]; Protocol Last Admin: 03/10/22 19:45 Dose: 5 mg Documented By: RAEANN Aspirin (Aspirin Enteric Coated 81 Mg Tablet.) 81 mg PO DAILY [facility] Last Admin: 03/10/22 08:29 Dose: 81 mg Documented By: SOM Atorvastatin Calcium (Atorvastatin Calcium 40 Mg Tablet) 40 mg PO BEDTIME [facility] Last Admin: 03/10/22 19:46 Dose: 40 mg Documented By: RAEANN Bumetanide (Bumetanide 1 Mg Tablet) 1 mg PO DAILY [facility]; Protocol Last Admin: 03/10/22 08:28 Dose: 1 mg Documented By: SOM Carvedilol (Carvedilol 25 Mg Tablet) 25 mg PO BID [facility]; Protocol Last Admin: 03/10/22 19:45 Dose: 25 mg Documented By: RAEANN Dextrose (Dextrose 50 % 25 Gm/50 Ml Syringe) 25 gm IVPUSH Q15M PRN; Protocol PRN Reason: per Hypoglycemia Standing Ord. Docusate Sodium (Docusate Sodium 100 Mg Capsule) 100 mg PO DAILY PRN PRN Reason: Constipation Docusate Sodium (Docusate Sodium 100 Mg Capsule) 100 mg PO DAILY [facility] Last Admin: 03/10/22 08:29 Dose: 100 mg Documented By: SOM Ergocalciferol (Ergocalciferol (Vitamin D2) 1,250 Mcg Capsule) 1,250 mcg PO Mo [facility] Ferrous Sulfate (Ferrous Sulfate 324 Mg Tablet.) 324 mg PO TID [facility] Last Admin: 03/10/22 19:45 Dose: 324 mg Documented By: RAEANN Glucose (Glucose Gel 15 Gm Gel..Gram.) 15 gm PO Q15M PRN; Protocol PRN Reason: per Hypoglycemia Standing Ord. Heparin Sodium (Porcine) (Heparin Sodium,Porcine 5,000 Unit/Ml Vial) 5,000 unit SUBCUT Q8H [facility] Last Admin: 03/11/22 01:31 Dose: 5,000 unit Documented By: RAEANN Piperacillin Sod/Tazobactam (Sod 2.25 gm/ Sodium Chloride) 50 mls @ 100 mls/hr IV Q6H [facility] Last Infusion: 03/11/22 02:08 Dose: 0 mls/hr Documented By: RAEANN Insulin Human Lispro (Insulin Lispro 100 Unit/Ml 3 Ml Vial) 0 unit SUBCUT QIDACHS [facility]; Protocol Last Admin: 03/11/22 08:02 Dose: Not Given Documented By: SOM Non-Admin Reason: No Insulin Coverage Losartan Potassium (Losartan Potassium 50 Mg Tablet) 100 mg PO DAILY [facility]; Protocol Last Admin: 03/10/22 08:28 Dose: 100 mg Documented By: SOM Morphine Sulfate (Morphine Sulfate 2 Mg/Ml Cartridge) 2 mg IVPUSH Q6H PRN; Protocol PRN Reason: Pain, Severe (Pain Scale 7-10) Last Admin: 03/10/22 19:44 Dose: 2 mg Documented By: RAEANN Multivitamins/Vitamin C (Multivitamin Tablet) 1 tab PO DAILY [facility] Last Admin: 03/10/22 08:28 Dose: 1 tab Documented By: SOM Ondansetron HCl (Ondansetron Hcl 4 Mg/2 Ml Vial) 4 mg IVPUSH Q8H PRN PRN Reason: Nausea and Vomiting Pharmacy Consult (Consult Rx Perform Med Rec) 1 each MISCELLANE ONCE PRN PRN Reason: Consult order Sevelamer Carbonate (Sevelamer Carbonate Tablet 800 Mg Tablet) 800 mg PO TID [facility] Last Admin: 03/10/22 19:45 Dose: 800 mg Documented By: RAEANN Sodium Chloride (0.9 % Sodium Chloride Flush 3 Ml Syringe) 3 ml IVFLUSH QSHIFT [facility] Last Admin: 03/10/22 19:46 Dose: 3 ml Documented By: RAEANN Ursodiol (Ursodiol 300 Mg Capsule) 300 mg PO BID [facility] Last Admin: 03/10/22 20:45 Dose: 300 mg Documented By: RAEANN Labs 03/08/22 08:04 03/06/22 04:48 Labs: Laboratory Results - last 24 hr 03/10/22 03/10/22 03/10/22 11:38 13:50 16:13 POC Glucose 165 H 149 H 135 H 03/10/22 03/11/22 20:14 07:30 POC Glucose 183 H 130 H Microbiology Microbiology Results: Microbiology 03/05/22 17:23 Blood Culture - Final Blood - Venous No growth after 5 days. 03/05/22 17:23 Blood Culture - Final Blood - Venous No growth after 5 days. Assessment and Plan (1) Wet gangrene: Status: Acute (2) ESRD (end stage renal disease): Status: Acute Plan 76-year-old male with past medical history of peripheral vascular disease, diabetes, ESRD on dialysis, presents to the hospital with complaints of right foot? infection found to have gangrenous foot. # ? Wet gangrene--deemed not salvageable, s/p Right below-knee amputation and? Myodesis on 03/08/22, POD2. Postop care by surgery including dressing changes. Probable does not need antibiotics at this point I will check with Dr. Swan #? Diabetes--SSI, diabetic diet #PAD--ASA # HLD--Lipitor # ESRD - on dialysis MWF - Nephro following #Confusion--Not encephalopathy, probably has some underlying cognitive impairment #Hard of hearing --outpatient hearing testing DVT PPX: heparin Need for admit: Post surgery care. And need for placement. Time Spent With Patient Time: Total time managing care of this patient today ____ minutes. Quality Stroke Does the patient have a stroke diagnosis?: No VTE Prior VTE?: No VTE Risk Level:: Medical - moderate - high VTE Device Contraindication: Treatment Not Indicated VTE Drug Contraindication: N/A - Med Ordered
[2022-03-11 11:56] LABS: Glucose, Whole Blood 202 mg/dL (60-115)
[2022-03-11] MEDS: Insulin Lispro 100 UNIT/ML 3 ML VIAL SUBCUT ×2 (11:58→16:29)
[2022-03-11 15:20] VITALS: BP 147/56; PULSE 61; RESP 16; TEMP 36.8; O2SAT 94
[2022-03-11 16:21] LABS: Glucose, Whole Blood 186 mg/dL (60-115)
[2022-03-11 18:25] LABS: Glucose, Whole Blood 185 mg/dL (60-115)
[2022-03-11 19:51] VITALS: BP 129/62; PULSE 72; RESP 17; TEMP 36.8; O2SAT 94
[2022-03-11 20:28] LABS: Glucose, Whole Blood 187 mg/dL (60-115)
[2022-03-12] MEDS: Morphine Sulfate 2 MG/ML CARTRIDGE IVPUSH ×2 (00:15→11:42)
[2022-03-12] MEDS: Piperacillin Sodium/Tazobactam 2.25 GM in 0.9 % Sodium Chloride 50 ML IV ×4 (00:17→20:30)
[2022-03-12] MEDS: Heparin Sodium,Porcine 5,000 UNIT/ML VIAL 5000 UNIT SUBCUT ×2 (02:48→17:55)
[2022-03-12 03:34] VITALS: BP 145/55; PULSE 70; RESP 18; TEMP 37.1; O2SAT 94
[2022-03-12 07:48] VITALS: BP 126/92; PULSE 68; RESP 18; TEMP 36.9; O2SAT 96
[2022-03-12] MEDS: 0.9 % Sodium Chloride Flush 3 ML SYRINGE IVFLUSH ×2 (07:50→14:01)
[2022-03-12 07:54] LABS: Glucose, Whole Blood 157 mg/dL (60-115)
--- NOTE | 2022-03-12 09:48 | P.PNIM_ITS ---
Subjective Subjective Date of Service: 03/12/22 Interval History: post below knee amputation on right side, patient continues to be intermittently confused, somnolence CT head 2 days ago no acut pathology Review of Systems unable to obtain Physical Exam Vital Signs: Vital Signs: Last Vital Signs Temp 98.5 F 03/12/22 07:48 Pulse 68 03/12/22 07:48 Resp 18 03/12/22 07:48 BP 126/92 H 03/12/22 07:48 Pulse Ox 96 03/12/22 07:48 O2 Del Method 03/12/22 07:48 O2 Flow Rate 3 03/08/22 17:24 BMI result Body Mass Index 26.0 Const: Other: General: Alert oriented to self, place Resp:? CTA bilateral CVS: S1,S2,RRR GI: +BS, NT, no distention Skin: Right foot amputation site dressing in place Neuro:? motor grossly intact Psych: appropriate affect Objective Data Active Medications Acetaminophen (Acetaminophen 325 Mg Tablet) 650 mg PO Q6H PRN PRN Reason: Pain, Mild (Pain Scale 1-3) Last Admin: 03/11/22 14:15 Dose: 650 mg Documented By: SOM Amlodipine Besylate (Amlodipine Besylate 5 Mg Tablet) 5 mg PO BEDTIME [facility]; Protocol Last Admin: 03/11/22 20:07 Dose: Not Given Documented By: OUSMANE Non-Admin Reason: Patient Asleep Aspirin (Aspirin Enteric Coated 81 Mg Tablet.) 81 mg PO DAILY [facility] Last Admin: 03/11/22 08:17 Dose: 81 mg Documented By: SOM Atorvastatin Calcium (Atorvastatin Calcium 40 Mg Tablet) 40 mg PO BEDTIME [facility] Last Admin: 03/11/22 20:07 Dose: Not Given Documented By: OUSMANE Non-Admin Reason: Patient Asleep Bumetanide (Bumetanide 1 Mg Tablet) 1 mg PO DAILY [facility]; Protocol Last Admin: 03/11/22 08:16 Dose: 1 mg Documented By: SOM Carvedilol (Carvedilol 25 Mg Tablet) 25 mg PO BID [facility]; Protocol Last Admin: 03/11/22 20:07 Dose: Not Given Documented By: OUSMANE Non-Admin Reason: Patient Asleep Dextrose (Dextrose 50 % 25 Gm/50 Ml Syringe) 25 gm IVPUSH Q15M PRN; Protocol PRN Reason: per Hypoglycemia Standing Ord. Docusate Sodium (Docusate Sodium 100 Mg Capsule) 100 mg PO DAILY PRN PRN Reason: Constipation Docusate Sodium (Docusate Sodium 100 Mg Capsule) 100 mg PO DAILY [facility] Last Admin: 03/11/22 08:17 Dose: 100 mg Documented By: SOM Ergocalciferol (Ergocalciferol (Vitamin D2) 1,250 Mcg Capsule) 1,250 mcg PO Mo [facility] Ferrous Sulfate (Ferrous Sulfate 324 Mg Tablet.Dr) 324 mg PO TID [facility] Last Admin: 03/11/22 20:08 Dose: Not Given Documented By: OUSMANE Non-Admin Reason: Patient Asleep Glucose (Glucose Gel 15 Gm Gel..Gram.) 15 gm PO Q15M PRN; Protocol PRN Reason: per Hypoglycemia Standing Ord. Heparin Sodium (Porcine) (Heparin Sodium,Porcine 5,000 Unit/Ml Vial) 5,000 unit SUBCUT Q8H [facility] Last Admin: 03/12/22 02:48 Dose: 5,000 unit Documented By: OUSMANE Piperacillin Sod/Tazobactam (Sod 2.25 gm/ Sodium Chloride) 50 mls @ 100 mls/hr IV Q6H [facility] Last Infusion: 03/12/22 08:48 Dose: 0 mls/hr Documented By: DARNELL Insulin Human Lispro (Insulin Lispro 100 Unit/Ml 3 Ml Vial) 0 unit SUBCUT QIDACHS [facility]; Protocol Last Admin: 03/12/22 08:45 Dose: Not Given Documented By: DARNELL Non-Admin Reason: not eating Losartan Potassium (Losartan Potassium 50 Mg Tablet) 100 mg PO DAILY [facility]; Protocol Last Admin: 03/11/22 08:16 Dose: 100 mg Documented By: SOM Morphine Sulfate (Morphine Sulfate 2 Mg/Ml Cartridge) 2 mg IVPUSH Q6H PRN; Protocol PRN Reason: Pain, Severe (Pain Scale 7-10) Last Admin: 03/12/22 00:15 Dose: 2 mg Documented By: OUSMANE Multivitamins/Vitamin C (Multivitamin Tablet) 1 tab PO DAILY [facility] Last Admin: 03/11/22 08:17 Dose: 1 tab Documented By: SOM Ondansetron HCl (Ondansetron Hcl 4 Mg/2 Ml Vial) 4 mg IVPUSH Q8H PRN PRN Reason: Nausea and Vomiting Pharmacy Consult (Consult Rx Perform Med Rec) 1 each MISCELLANE ONCE PRN PRN Reason: Consult order Sevelamer Carbonate (Sevelamer Carbonate Tablet 800 Mg Tablet) 800 mg PO TID [facility] Last Admin: 03/11/22 20:09 Dose: Not Given Documented By: OUSMANE Non-Admin Reason: Patient Asleep Sodium Chloride (0.9 % Sodium Chloride Flush 3 Ml Syringe) 3 ml IVFLUSH QSHIFT [facility] Last Admin: 03/12/22 07:50 Dose: 3 ml Documented By: DARNELL Ursodiol (Ursodiol 300 Mg Capsule) 300 mg PO BID [facility] Last Admin: 03/11/22 20:09 Dose: Not Given Documented By: OUSMANE Non-Admin Reason: Patient Asleep Labs 03/08/22 08:04 03/06/22 04:48 Labs: Laboratory Results - last 24 hr 03/11/22 03/11/22 03/11/22 11:36 16:12 18:20 POC Glucose 202 H 186 H 185 H 03/11/22 03/12/22 19:55 07:47 POC Glucose 187 H 157 H Assessment and Plan (1) Wet gangrene: Status: Acute (2) ESRD (end stage renal disease): Status: Acute (3) Anemia: Status: Acute (4) Delirium: Status: Acute Plan 76-year-old male with past medical history of peripheral vascular disease, diabetes, ESRD on dialysis, presents to the hospital with complaints of right foot? infection found to have gangrenous foot. # ? Wet gangrene--deemed not salvageable, s/p Right below-knee amputation and? Myodesis on 03/08/22, POD4. Postop care by surgery including dressing changes. Probable does not need antibiotics at this point I will check with Dr. Swan He will ultimately need STR #? Diabetes--SSI, diabetic diet #PAD--ASA # HLD--Lipitor # ESRD - on dialysis MWF - Nephro following #Confusion--Not encephalopathy, probably has some underlying cognitive impairment and right now multifactorial delirium, CT head 03/10 no acute pathology neurontin stopped in setting of renal failue, morphine dose decrease, metabolic profile unremarkable, check ammonia. Hold of neuro consult if not improving then consider #Hard of hearing --outpatient hearing testing DVT PPX: heparin Need for admit: Post surgery care. And need for placement s/p amputation and ongoing delirium Care discussed with daughter over the phone Time Spent With Patient Time: Total time managing care of this patient today ____ minutes. Quality Stroke Does the patient have a stroke diagnosis?: No VTE Prior VTE?: No VTE Risk Level:: Medical - moderate - high VTE Device Contraindication: Treatment Not Indicated VTE Drug Contraindication: N/A - Med Ordered
[2022-03-12 10:41] LABS: Hematocrit 21.4 % (42.0-52.0); Mean Corpuscular HGB Conc 32.2 g/dl (31.0-36.0); Mean Corpuscular Hemoglobin 30.9 pg (27.0-33.0); Mean Platelet Volume 10.6 fL (9.4-12.4); Platelet Count 348 X10*3/uL (160-400); Red Blood Count 2.23 X10*6/uL (4.60-5.80); Red Cell Distribution Width 16.4 % (11.0-16.0); White Blood Count 23.5 X10*3/uL (4.8-10.8)
[2022-03-12 10:49] LABS: Ammonia 36 umol/L (13-55)
[2022-03-12 11:02] LABS: Hemoglobin 6.9 g/dl (14.0-18.0)
[2022-03-12 11:11] LABS: Anion Gap 17 (12-20); Blood Urea Nitrogen 20 mg/dL (9-16); Calcium 7.9 mg/dL (8.4-10.2); Carbon Dioxide 20 mmol/L (22-29); Chloride 98 mmol/L (96-108); Creatinine Clr Calc Pharmacy 24.1; Estimated Glomerular Filt Rate 28; Glucose Random 114 mg/dL (60-115); Potassium 3.3 mmol/L (3.3-5.1); Sodium 132 mmol/L (135-145)
--- NOTE | 2022-03-12 11:44 | HO.VASCPN ---
Subjective Subjective Date of Service: 03/12/22 Patient reports: no new complaints Interval history: Very pleasant 76-year-old gentleman for follow-up status post right BKA. He was seen in dialysis. A little more lethargic today than usual. He is usually very responsive to questions. He does respond when directly questioned and does respond to pain. But not as vibrant as usual P Physical Exam Vital Signs: Vital Signs: Last Vital Signs Temp 98.5 F 03/12/22 07:48 Pulse 68 03/12/22 07:48 Resp 18 03/12/22 07:48 BP 126/92 H 03/12/22 07:48 Pulse Ox 96 03/12/22 07:48 O2 Del Method 03/12/22 07:48 O2 Flow Rate 3 03/08/22 17:24 BMI result Body Mass Index 26.0 Const: General: cooperative, healthy appearing and no acute distress Orientation/consciousness: oriented to person, oriented to place and oriented to time HEENT: Head: Yes normal to inspection Neck: Carotids: no bruits Chest: Chest palpation & inspection: normal inspection of the chest Resp: Effort & Inspection: normal respiratory effort and able to speak in complete sentences Auscultation: clear to auscultation bilaterally Cardio: Rate: regular rate Heart sounds: S1 normal heart sound present and S2 normal heart sound present GI: Inspection: Yes normal to inspection Skin: Other: Right stump dressing changed. Incision line healing well. General skin exam: no rashes or lesions noted Wounds: amputation site Neuro: General: oriented to person, oriented to place, oriented to time and CN's II-XI intact bilaterally Extrem: General: Yes normal to inspection, Yes full ROM and Yes no clubbing, cyanosis or edema Psych: Appearance: grossly normal and well kempt Speech and movement: Normal speech and movement present Affect: normal affect Progress Note: A&P Assessment and plan (1) S/P bilateral BKA (below knee amputation): Status: Acute Assessment and Plan: Patient is doing well with right BKA. He does have continued pain with this. He is a bit lethargic but appears to be doing relatively well. Stump healing well. Local wound care orders written. Stable from my perspective once medically stable for discharge. Can see me as an outpatient in approximately 2 weeks time for suture and staple removal. Time Spent With Patient Time: Total time managing care of this patient today ____ minutes. Procedures Date of Service Date of Service: 03/12/22 Quality Stroke Does the patient have a stroke diagnosis?: No VTE Prior VTE?: No VTE Risk Level:: Medical - moderate - high VTE Device Contraindication: Treatment Not Indicated VTE Drug Contraindication: N/A - Med Ordered
[2022-03-12 13:15] VITALS: BP 134/59; PULSE 95; RESP 18; TEMP 36.5; O2SAT 99
[2022-03-12 13:18] LABS: Glucose, Whole Blood 135 mg/dL (60-115)
[2022-03-12] MEDS: Lactated Ringers 1,000 ML 80 ML IVCONT (15:56)
[2022-03-12 16:00] VITALS: BP 134/75; PULSE 80; RESP 17; TEMP 37.4; O2SAT 93
[2022-03-12] MEDS: Acetaminophen 325 MG TABLET 650 MG PO ×2 (16:01→22:50)
[2022-03-12 16:10] LABS: Glucose, Whole Blood 167 mg/dL (60-115)
--- NOTE | 2022-03-12 17:06 | PC.NURSE ---
1446- Pt not eating today. Family with concerns regarding this. Dr Shine notified. New orders placed. IVF started per MD order 1600 Dr Shine up and spoke with daughter regarding pt status. Pt remains lethargic but arousable.
--- NOTE | 2022-03-12 18:35 | PC.NURSE ---
1800- Radiology called inquiring aboput PCXR ordered. Will come to do it
[2022-03-12 19:59] VITALS: BP 122/50; PULSE 75; RESP 17; TEMP 37.2; O2SAT 95
[2022-03-12 20:07] LABS: Glucose, Whole Blood 236 mg/dL (60-115)
[2022-03-12] MEDS: Insulin Lispro 100 UNIT/ML 3 ML VIAL SUBCUT (20:30)
--- NOTE | 2022-03-12 21:42 | P.PNNP_ITS ---
Subjective Subjective Date of Service: 03/12/22 Interval history: S/P post below knee amputation on right side; Seen on HD AM; D/W HD RN Physical Exam Vital Signs: Vital Signs: Last Vital Signs Temp 99 F 03/12/22 19:59 Pulse 75 03/12/22 19:59 Resp 17 03/12/22 19:59 BP 122/50 L 03/12/22 19:59 Pulse Ox 95 03/12/22 19:59 O2 Del Method 03/12/22 19:59 O2 Flow Rate 3 03/08/22 17:24 BMI result Body Mass Index 26.0 Const: General: no acute distress Neck: Neck: Yes supple Resp: Auscultation: diminished lung sounds Cardio: Rate: regular rate GI: Palpation (GI): Soft to palpation Skin: Rashes: no rashes Objective Data Labs 03/12/22 10:33 03/12/22 10:33 Labs: Laboratory Results - last 24 hr 03/12/22 03/12/22 03/12/22 07:47 10:33 10:33 WBC 23.5 H RBC 2.23 L Hgb 6.9 L* Hct 21.4 L MCV 96.0 MCH 30.9 MCHC 32.2 RDW 16.4 H Plt Count 348 MPV 10.6 Absolute Nucleated RBC 0.000 Nucleated RBC % (auto) 0.0 Sodium 132 L Potassium 3.3 Chloride 98 Carbon Dioxide 20 L Anion Gap 17 BUN 20 H D Creatinine 2.30 H Estim Creat Clear Calc 24.1 Estimated GFR 28 POC Glucose 157 H Random Glucose 114 Calcium 7.9 L D Ammonia Blood Type Antibody Screen 03/12/22 03/12/22 03/12/22 10:33 13:15 16:07 WBC RBC Hgb Hct MCV MCH MCHC RDW Plt Count MPV Absolute Nucleated RBC Nucleated RBC % (auto) Sodium Potassium Chloride Carbon Dioxide Anion Gap BUN Creatinine Estim Creat Clear Calc Estimated GFR POC Glucose 135 H 167 H Random Glucose Calcium Ammonia 36 Blood Type Antibody Screen 03/12/22 03/12/22 16:38 20:03 WBC RBC Hgb Hct MCV MCH MCHC RDW Plt Count MPV Absolute Nucleated RBC Nucleated RBC % (auto) Sodium Potassium Chloride Carbon Dioxide Anion Gap BUN Creatinine Estim Creat Clear Calc Estimated GFR POC Glucose 236 H Random Glucose Calcium Ammonia Blood Type A Positive Antibody Screen NEGATIVE Microbiology Microbiology Results: Microbiology 03/05/22 17:23 Blood - Venous Blood Culture - Final No growth after 5 days. 03/05/22 17:23 Blood - Venous Blood Culture - Final No growth after 5 days. Procedures Date of Service Date of Service: 03/12/22 Assessment & Plan Assessment and plan (1) ESRD (end stage renal disease) on dialysis: Status: Acute Assessment and Plan: Seen on HD AM; usually? HD m-w- at [facility] HD unit admitted with wet gangrene now s/p amputation renal diet; phosphate binders dose medication for GFR<10 Need to keep Hb close to 11 Gm/dl Time Spent With Patient Time: Total time managing care of this patient today ____ minutes. Progress Note: Quality Stroke Does the patient have a stroke diagnosis?: No
[2022-03-13] VITALS (10 sets, daily range): BP systolic 110–145; BP diastolic 50–60; PULSE 66–76; RESP 16–20; TEMP 36.2–38.3; O2SAT 94–97; BMI 24.2
[2022-03-13] MEDS: Piperacillin Sodium/Tazobactam 2.25 GM in 0.9 % Sodium Chloride 50 ML IV ×4 (02:02→20:05)
[2022-03-13] MEDS: Heparin Sodium,Porcine 5,000 UNIT/ML VIAL 5000 UNIT SUBCUT ×3 (02:02→18:16)
[2022-03-13] MEDS: Lactated Ringers 1,000 ML 80 ML IVCONT ×2 (02:12→21:30)
--- NOTE | 2022-03-13 07:15 | PC.NURSE ---
Assumed care of patient at this time
[2022-03-13 07:58] LABS: Glucose, Whole Blood 169 mg/dL (60-115)
[2022-03-13] MEDS: Insulin Lispro 100 UNIT/ML 3 ML VIAL SUBCUT ×4 (08:01→20:56)
[2022-03-13] MEDS: Multivitamin TABLET 1 TAB PO (08:02)
[2022-03-13] MEDS: Aspirin Enteric Coated 81 MG TABLET.DR PO (08:02)
[2022-03-13] MEDS: Bumetanide 1 MG TABLET PO (08:02)
[2022-03-13] MEDS: Ferrous Sulfate 324 MG TABLET.DR PO ×3 (08:02→20:05)
[2022-03-13] MEDS: Docusate Sodium 100 MG CAPSULE PO (08:02)
[2022-03-13] MEDS: carvediloL 25 MG TABLET PO ×2 (08:02→20:05)
[2022-03-13] MEDS: 0.9 % Sodium Chloride Flush 3 ML SYRINGE IVFLUSH ×2 (08:03→16:43)
[2022-03-13] MEDS: Sevelamer Carbonate Tablet 800 MG TABLET PO ×3 (08:03→20:05)
--- NOTE | 2022-03-13 08:26 | PHA.PROG ---
Admission Date/Time: March 06, 2022 00:36 Indication: other/ wet gangrene Weight in k kg Adjusted body weight in Kg: [place] body weight in Kg: Obesity Dosing Indication % IBW: Serum Creatinine - Last 168 Hours 03/12/22 10:33 Creatinine 2.30 H Estimated CrCl and GFR - Last 168 Hours 03/12/22 10:33 Estim Creat Clear Calc 24.1 Estimated GFR 28 Vancomycin Loading Dose: 1500mg X 1 Current Vancomycin Dosing Regimen: 500mg MoWeFr post HD Vancomycin Monitoring using AUC goal of 400 - 600 range with trough as surrogate marker: Date and Time for next Vancomycin Level to be drawn: 03/14/22 after HD Pharmacist Comments on Vancomycin Plan: Pt is S/P below knee amputation, confirmed weight with nursing; will continue to monitor and adjust based on dialysis Vancomycin dosing will take advantage of [employer] as a clinical decision support tool that uses Bayesian modeling to calculate individual patient's pharmacokinetic parameters and forecast the patient's drug concentration time course with the target goal AUC 24 range of 400 - 600 mg/L/hr.
--- NOTE | 2022-03-13 08:54 | PC.NURSE ---
pt alert. very HH difficult to assess orientation. complains of pain on his rt leg as well as scrotum pain. obtained urine sample and sent to lab. Placed new IV on rt hand. Lr running and pip 2.25mg. Son at bedside. defused morphine. Dr keith put in an order for matty.
[2022-03-13 09:05] LABS: Appearance Urine Clear; Color Urine DK YELLOW; Glucose Urine UA Negative (Negative); Leukocyte Esterase Urine Negative (Negative); Nitrite Urine Negative (Negative); PH 6.5 (5.0-9.0); Specific Gravity - Urine 1.015 (1.005-1.025); UMIC TRIGGER UACC YES; Urine Blood Moderate (2+) (Negative); Urine Ketones Negative (Negative); Urine Protein 300 (3+) mg/dL (Neg-Trace)
[2022-03-13] MEDS: Acetaminophen 325 MG TABLET 650 MG PO ×2 (09:20→18:51)
[2022-03-13] MEDS: UrsodioL 300 MG CAPSULE PO ×2 (09:20→20:04)
[2022-03-13] MEDS: Losartan Potassium 50 MG TABLET 100 MG PO (09:20)
[2022-03-13] MEDS: oxyCODONE HCl Immed Release 5 MG TABLET PO ×2 (09:21→18:51)
[2022-03-13] MEDS: vancomycin HCL 1,500 MG in 0.9 % Sodium Chloride 500 ML 333.33 MG IV (09:22)
[2022-03-13 09:35] LABS: WBC Urine 0-5 /HPF (0-5)
[2022-03-13 09:36] LABS: Bacteria Urine None Seen (None Seen); Hyaline Casts Urine 0-2 /LPF (0-2); Squamous Epithelial Cell Urine 0-2 /HPF (0-2)
--- NOTE | 2022-03-13 09:58 | P.PNNP_ITS ---
Subjective Subjective Date of Service: 03/13/22 Interval history: S/P post below knee amputation on right side; Had HD yesterday AM Physical Exam Vital Signs: Vital Signs: Last Vital Signs Temp 99 F 03/13/22 09:50 Pulse 69 03/13/22 09:50 Resp 16 03/13/22 09:50 BP 124/56 L 03/13/22 09:50 Pulse Ox 96 03/13/22 08:00 O2 Del Method 03/13/22 08:00 O2 Flow Rate 3 03/08/22 17:24 BMI result Body Mass Index 24.2 Const: General: no acute distress Eyes: EOM: EOMs intact bilaterally Neck: Neck: Yes supple Resp: Auscultation: diminished lung sounds Cardio: Rate: regular rate GI: Palpation (GI): Soft to palpation Extrem: Other: BKA Objective Data Labs 03/12/22 10:33 03/12/22 10:33 Labs: Laboratory Results - last 24 hr 03/12/22 03/12/22 03/12/22 10:33 10:33 10:33 WBC 23.5 H RBC 2.23 L Hgb 6.9 L* Hct 21.4 L MCV 96.0 MCH 30.9 MCHC 32.2 RDW 16.4 H Plt Count 348 MPV 10.6 Absolute Nucleated RBC 0.000 Nucleated RBC % (auto) 0.0 Sodium 132 L Potassium 3.3 Chloride 98 Carbon Dioxide 20 L Anion Gap 17 BUN 20 H D Creatinine 2.30 H Estim Creat Clear Calc 24.1 Estimated GFR 28 POC Glucose Random Glucose 114 Calcium 7.9 L D Ammonia 36 Urine Color Urine Appearance Urine pH Ur Specific [place] Urine Protein Urine Glucose (UA) Urine Ketones Urine Blood Urine Nitrite Ur Leukocyte Esterase Urine RBC Urine WBC Ur Squamous Epith Cells Urine Bacteria Hyaline Casts Blood Type Antibody Screen Crossmatch 03/12/22 03/12/22 03/12/22 13:15 16:07 16:38 WBC RBC Hgb Hct MCV MCH MCHC RDW Plt Count MPV Absolute Nucleated RBC Nucleated RBC % (auto) Sodium Potassium Chloride Carbon Dioxide Anion Gap BUN Creatinine Estim Creat Clear Calc Estimated GFR POC Glucose 135 H 167 H Random Glucose Calcium Ammonia Urine Color Urine Appearance Urine pH Ur Specific [place] Urine Protein Urine Glucose (UA) Urine Ketones Urine Blood Urine Nitrite Ur Leukocyte Esterase Urine RBC Urine WBC Ur Squamous Epith Cells Urine Bacteria Hyaline Casts Blood Type A Positive Antibody Screen NEGATIVE Crossmatch See Detail 03/12/22 03/13/22 03/13/22 20:03 07:49 08:41 WBC RBC Hgb Hct MCV MCH MCHC RDW Plt Count MPV Absolute Nucleated RBC Nucleated RBC % (auto) Sodium Potassium Chloride Carbon Dioxide Anion Gap BUN Creatinine Estim Creat Clear Calc Estimated GFR POC Glucose 236 H 169 H Random Glucose Calcium Ammonia Urine Color DK YELLOW Urine Appearance Clear Urine pH 6.5 Ur Specific [place] 1.015 Urine Protein 300 (3+) H Urine Glucose (UA) Negative Urine Ketones Negative Urine Blood Moderate (2+) H Urine Nitrite Negative Ur Leukocyte Esterase Negative Urine RBC 3-5 H Urine WBC 0-5 Ur Squamous Epith Cells 0-2 Urine Bacteria None Seen Hyaline Casts 0-2 Blood Type Antibody Screen Crossmatch Microbiology Microbiology Results: Microbiology 03/05/22 17:23 Blood - Venous Blood Culture - Final No growth after 5 days. 03/05/22 17:23 Blood - Venous Blood Culture - Final No growth after 5 days. Procedures Date of Service Date of Service: 03/13/22 Assessment & Plan Assessment and plan (1) ESRD (end stage renal disease) on dialysis: Status: Acute Assessment and Plan: Usually?gets HD MWF at [facility] HD unit admitted with wet gangrene now s/p amputation renal diet; phosphate binders dose medication for GFR<10 [place] [id number] Units MWF Need to keep Hb close to 11 Gm/dl Progress Note: Quality Stroke Does the patient have a stroke diagnosis?: No
[2022-03-13 11:04] LABS: Creatinine Clr Calc Pharmacy 23.4; Estimated Glomerular Filt Rate 27
[2022-03-13 11:44] LABS: Glucose, Whole Blood 167 mg/dL (60-115)
--- NOTE | 2022-03-13 12:12 | P.PNIM_ITS ---
Subjective Subjective Date of Service: 03/13/22 Interval History: All information gleaned through son. Pain control adequate; fever spikes to 101 despite Zosyn and vanco. Review of Systems Denies chest pain Denies shortness of breath Admits fevers Denies nausea vomiting diarrhea Physical Exam Vital Signs: Vital Signs: Last Vital Signs Temp 98.8 F 03/13/22 11:54 Pulse 69 03/13/22 11:54 Resp 16 03/13/22 11:54 BP 136/58 L 03/13/22 11:54 Pulse Ox 96 03/13/22 08:00 O2 Del Method 03/13/22 08:00 O2 Flow Rate 3 03/08/22 17:24 BMI result Body Mass Index 24.2 Const: Other: No acute distress Resp: Other: Clear to auscultation bilaterally no rales rhonchi or wheezes Cardio: Other: No S4; positive S1-S2; no S3 murmurs rubs or gallops GI: Other: Soft nontender nondistended normoactive bowel sounds Extrem: Other: Bilateral BKA Objective Data Active Medications Acetaminophen (Acetaminophen 325 Mg Tablet) 650 mg PO Q6H PRN PRN Reason: Pain, Mild (Pain Scale 1-3) Last Admin: 03/13/22 09:20 Dose: 650 mg Documented By: MARY Amlodipine Besylate (Amlodipine Besylate 5 Mg Tablet) 5 mg PO BEDTIME [facility]; Protocol Last Admin: 03/12/22 19:56 Dose: Not Given Documented By: OUSMANE Non-Admin Reason: unable to swallow Aspirin (Aspirin Enteric Coated 81 Mg Tablet.) 81 mg PO DAILY [facility] Last Admin: 03/13/22 08:02 Dose: 81 mg Documented By: MARY Atorvastatin Calcium (Atorvastatin Calcium 40 Mg Tablet) 40 mg PO BEDTIME [facility] Last Admin: 03/12/22 19:54 Dose: Not Given Documented By: OUSMANE Non-Admin Reason: unable to swallow Bumetanide (Bumetanide 1 Mg Tablet) 1 mg PO DAILY [facility]; Protocol Last Admin: 03/13/22 08:02 Dose: 1 mg Documented By: MARY Carvedilol (Carvedilol 25 Mg Tablet) 25 mg PO BID [facility]; Protocol Last Admin: 03/13/22 08:02 Dose: 25 mg Documented By: MARY Dextrose (Dextrose 50 % 25 Gm/50 Ml Syringe) 25 gm IVPUSH Q15M PRN; Protocol PRN Reason: per Hypoglycemia Standing Ord. Docusate Sodium (Docusate Sodium 100 Mg Capsule) 100 mg PO DAILY PRN PRN Reason: Constipation Docusate Sodium (Docusate Sodium 100 Mg Capsule) 100 mg PO DAILY [facility] Last Admin: 03/13/22 08:02 Dose: 100 mg Documented By: MARY Ergocalciferol (Ergocalciferol (Vitamin D2) 1,250 Mcg Capsule) 1,250 mcg PO Mo [facility] Last Admin: 03/12/22 11:16 Dose: Not Given Documented By: DARNELL Non-Admin Reason: lethargic Ferrous Sulfate (Ferrous Sulfate 324 Mg Tablet.Dr) 324 mg PO TID [facility] Last Admin: 03/13/22 08:02 Dose: 324 mg Documented By: MARY Glucose (Glucose Gel 15 Gm Gel..Gram.) 15 gm PO Q15M PRN; Protocol PRN Reason: per Hypoglycemia Standing Ord. Heparin Sodium (Porcine) (Heparin Sodium,Porcine 5,000 Unit/Ml Vial) 5,000 unit SUBCUT Q8H [facility] Last Admin: 03/13/22 09:21 Dose: 5,000 unit Documented By: MARY Piperacillin Sod/Tazobactam (Sod 2.25 gm/ Sodium Chloride) 50 mls @ 100 mls/hr IV Q6H [facility] Last Infusion: 03/13/22 09:22 Dose: 100 mls/hr Documented By: MARY Lactated Ringer's (Lr) 1,000 mls @ 80 mls/hr IVCONT .[id number] [facility] Last Admin: 03/13/22 02:12 Dose: 80 mls/hr Documented By: OUSMANE Vancomycin HCl 500 mg/ Sodium (Chloride) 110 mls @ 110 mls/hr IV MoWeFr [facility] Insulin Human Lispro (Insulin Lispro 100 Unit/Ml 3 Ml Vial) 0 unit SUBCUT QIDACHS [facility]; Protocol Last Admin: 03/13/22 12:09 Dose: 2 unit Documented By: MARY Losartan Potassium (Losartan Potassium 50 Mg Tablet) 100 mg PO DAILY [facility]; Protocol Last Admin: 03/13/22 09:20 Dose: 100 mg Documented By: MARY Morphine Sulfate (Morphine Sulfate 2 Mg/Ml Cartridge) 2 mg IVPUSH Q6H PRN; Pro tocol PRN Reason: Pain, Severe (Pain Scale 7-10) Last Admin: 03/12/22 11:42 Dose: 2 mg Documented By: DARNELL Multivitamins/Vitamin C (Multivitamin Tablet) 1 tab PO DAILY [facility] Last Admin: 03/13/22 08:02 Dose: 1 tab Documented By: MARY Ondansetron HCl (Ondansetron Hcl 4 Mg/2 Ml Vial) 4 mg IVPUSH Q8H PRN PRN Reason: Nausea and Vomiting Oxycodone HCl (Oxycodone Hcl Immed Release 5 Mg Tablet) 5 mg PO Q4H PRN PRN Reason: Pain, Moderate (Pain Scale 4-6 Last Admin: 03/13/22 09:21 Dose: 5 mg Documented By: MARY Pharmacy Consult (Consult Rx Perform Med Rec) 1 each MISCELLANE ONCE PRN PRN Reason: Consult order Pharmacy Consult (Consult Rx Vancomycin Dosing) 1 each MISCELLANE DAILY PRN PRN Reason: Consult order Sevelamer Carbonate (Sevelamer Carbonate Tablet 800 Mg Tablet) 800 mg PO TID [facility] Last Admin: 03/13/22 08:03 Dose: 800 mg Documented By: MARY Sodium Chloride (0.9 % Sodium Chloride Flush 3 Ml Syringe) 3 ml IVFLUSH QSHIFT [facility] Last Admin: 03/13/22 08:03 Dose: 3 ml Documented By: MARY Ursodiol (Ursodiol 300 Mg Capsule) 300 mg PO BID [facility] Last Admin: 03/13/22 09:20 Dose: 300 mg Documented By: MARY Labs 03/12/22 10:33 03/13/22 10:03 Labs: Laboratory Results - last 24 hr 03/12/22 03/12/22 03/12/22 13:15 16:07 16:38 Estim Creat Clear Calc Estimated GFR POC Glucose 135 H 167 H Urine Color Urine Appearance Urine pH Ur Specific [place] Urine Protein Urine Glucose (UA) Urine Ketones Urine Blood Urine Nitrite Ur Leukocyte Esterase Urine RBC Urine WBC Ur Squamous Epith Cells Urine Bacteria Hyaline Casts Blood Type A Positive Antibody Screen NEGATIVE Crossmatch See Detail 03/12/22 03/13/22 03/13/22 20:03 07:49 08:41 Estim Creat Clear Calc Estimated GFR POC Glucose 236 H 169 H Urine Color DK YELLOW Urine Appearance Clear Urine pH 6.5 Ur Specific [place] 1.015 Urine Protein 300 (3+) H Urine Glucose (UA) Negative Urine Ketones Negative Urine Blood Moderate (2+) H Urine Nitrite Negative Ur Leukocyte Esterase Negative Urine RBC 3-5 H Urine WBC 0-5 Ur Squamous Epith Cells 0-2 Urine Bacteria None Seen Hyaline Casts 0-2 Blood Type Antibody Screen Crossmatch 03/13/22 03/13/22 10:03 11:37 Estim Creat Clear Calc 23.4 Estimated GFR 27 POC Glucose 167 H Urine Color Urine Appearance Urine pH Ur Specific [place] Urine Protein Urine Glucose (UA) Urine Ketones Urine Blood Urine Nitrite Ur Leukocyte Esterase Urine RBC Urine WBC Ur Squamous Epith Cells Urine Bacteria Hyaline Casts Blood Type Antibody Screen Crossmatch Assessment and Plan (1) Wet gangrene: Status: Acute (2) ESRD (end stage renal disease) on dialysis: Status: Acute (3) Diabetes mellitus, with long-term current use of insulin: Status: Acute Plan 76-year-old male with past medical history of peripheral vascular disease, diabetes, ESRD on dialysis, presents to the hospital with complaints of right foot? infection found to have gangrenous foot. Status post BKA 03/08/2022 1.Wet gangrene(fever spikes to 101 over last 24 hours) - s/p Right below-knee amputation and? Myodesis on 03/08/22, POD5 -continue vanco after dialysis/Zosyn pending blood cultures -ID consult 2.Diabetes II -acceptable control on current therapies -Lispro correctional scale -ADA diet -adjust as indicated 3.HTN -acceptable control on current therapies -adjust as indicated 4.ESRD - dialysis MWF - Nephro following PPX: heparin Full COde Discussed with son at bedside Will require ongoing hospitalization for IV antibiotics pending investigation of new fever Time Spent With Patient Time: Total time managing care of this patient today ____ minutes. Quality Stroke Does the patient have a stroke diagnosis?: No VTE Prior VTE?: No VTE Risk Level:: Medical - moderate - high VTE Device Contraindication: Treatment Not Indicated VTE Drug Contraindication: N/A - Med Ordered
--- NOTE | 2022-03-13 14:45 | P.CNID_ITS ---
History of Present Illness Data of Consult Service Date: 03/13/22 Requesting physician: Baljit Koch Primary Care Provider: Sanjana Guerrero MD HPI Reason for consult: fever of unknown origin He presents with dark color foot starting at toes on 03/02/2022. He came to ER and was found to have gangrene with vascular disease and saw Dr Swan with BKA done on 03/08/2022 which he tolerated well. He also had left BKA 06/2021. He now has fever this morning to 101 and no focal findings except patient reported diarrhea yesterday. I am talking to patient who is hard of hearing,daughter with hospital mountain services manager,Janine. He has no rash or shortness of breath or other complaints. Review of Systems Review of Systems: Yes all other systems are reviewed and are negative [facility] Past Medical History Medical History (Updated 03/13/22 @ 14:51 by Yris Park MD) Anemia in chronic kidney disease Below-knee amputation of left lower extremity Diabetes Diabetes mellitus, with long-term current use of insulin Diarrhea End stage renal disease End-stage renal disease on hemodialysis Fever of unknown origin High cholesterol History of leg amputation Hypertension Microalbuminuria Mixed hyperlipidemia PAD (peripheral artery disease) Preoperative cardiovascular examination Functional capacity: uses cane/walker Family History Family History Father Myocardial infarction Mother No problems noted. Family history: reviewed and not pertinent Surgical History Surgical History History of eye surgery History of laminectomy History of surgery History of surgery on arm S/P CABG x 4 S/P unilateral BKA (below knee amputation) Social History Social History Household Members: Children Housing: House Do you presently have visiting nurse or other home services: Yes (nursing aid) Alcohol intake: never Patient Tobacco Use Status: Never used Tobacco e-Cigarette/Vaping Use: Never Used Second Hand Smoke Exposure: No Advance Directives Date on File: 06/15/21 service: No Current occupational status: retired and disabled Cognitive needs: Yes Hearing needs: No Vision needs: No Meds Allergies Allergy/AdvReac Type Severity Reaction Status Date / Time lisinopril Allergy Intermediate hyperkalemi Verified 01/23/22 14:01 a lidocaine [From LIDOPRIL] Allergy Mild COUGH Verified 01/23/22 14:01 prilocaine [From LIDOPRIL] Allergy Mild COUGH Verified 01/23/22 14:01 canagliflozin [Invokana] AdvReac Mild back pain Verified 01/23/22 14:01 Hydralazine-HCTZ Allergy Unknown Unknown Uncoded 01/11/22 10:25 Active Medications: Current Medications Acetaminophen (Acetaminophen 325 Mg Tablet) 650 mg PO Q6H PRN PRN Reason: Pain, Mild (Pain Scale 1-3) Last Admin: 03/13/22 09:20 Dose: 650 mg Amlodipine Besylate (Amlodipine Besylate 5 Mg Tablet) 5 mg PO BEDTIME [facility]; Protocol Last Admin: 03/12/22 19:56 Dose: Not Given Aspirin (Aspirin Enteric Coated 81 Mg Tablet.) 81 mg PO DAILY [facility] Last Admin: 03/13/22 08:02 Dose: 81 mg Atorvastatin Calcium (Atorvastatin Calcium 40 Mg Tablet) 40 mg PO BEDTIME [facility] Last Admin: 03/12/22 19:54 Dose: Not Given Bumetanide (Bumetanide 1 Mg Tablet) 1 mg PO DAILY [facility]; Protocol Last Admin: 03/13/22 08:02 Dose: 1 mg Carvedilol (Carvedilol 25 Mg Tablet) 25 mg PO BID [facility]; Protocol Last Admin: 03/13/22 08:02 Dose: 25 mg Dextrose (Dextrose 50 % 25 Gm/50 Ml Syringe) 25 gm IVPUSH Q15M PRN; Protocol PRN Reason: per Hypoglycemia Standing Ord. Docusate Sodium (Docusate Sodium 100 Mg Capsule) 100 mg PO DAILY PRN PRN Reason: Constipation Docusate Sodium (Docusate Sodium 100 Mg Capsule) 100 mg PO DAILY [facility] Last Admin: 03/13/22 08:02 Dose: 100 mg Ergocalciferol (Ergocalciferol (Vitamin D2) 1,250 Mcg Capsule) 1,250 mcg PO Mo [facility] Last Admin: 03/12/22 11:16 Dose: Not Given Ferrous Sulfate (Ferrous Sulfate 324 Mg Tablet.) 324 mg PO TID [facility] Last Admin: 03/13/22 08:02 Dose: 324 mg Glucose (Glucose Gel 15 Gm Gel..Gram.) 15 gm PO Q15M PRN; Protocol PRN Reason: per Hypoglycemia Standing Ord. Heparin Sodium (Porcine) (Heparin Sodium,Porcine 5,000 Unit/Ml Vial) 5,000 unit SUBCUT Q8H [facility] Last Admin: 03/13/22 09:21 Dose: 5,000 unit Piperacillin Sod/Tazobactam (Sod 2.25 gm/ Sodium Chloride) 50 mls @ 100 mls/hr IV Q6H [facility] Last Infusion: 03/13/22 09:22 Dose: Infused Lactated Ringer's (Lr) 1,000 mls @ 80 mls/hr IVCONT .[id number] [facility] Last Admin: 03/13/22 02:12 Dose: 80 mls/hr Vancomycin HCl 500 mg/ Sodium (Chloride) 110 mls @ 110 mls/hr IV MoWeFr [facility] Insulin Human Lispro (Insulin Lispro 100 Unit/Ml 3 Ml Vial) 0 unit SUBCUT QIDACHS [facility]; Protocol Last Admin: 03/13/22 12:09 Dose: 2 unit Losartan Potassium (Losartan Potassium 50 Mg Tablet) 100 mg PO DAILY [facility]; Protocol Last Admin: 03/13/22 09:20 Dose: 100 mg Morphine Sulfate (Morphine Sulfate 2 Mg/Ml Cartridge) 2 mg IVPUSH Q6H PRN; Protocol PRN Reason: Pain, Severe (Pain Scale 7-10) Last Admin: 03/12/22 11:42 Dose: 2 mg Multivitamins/Vitamin C (Multivitamin Tablet) 1 tab PO DAILY [facility] Last Admin: 03/13/22 08:02 Dose: 1 tab Ondansetron HCl (Ondansetron Hcl 4 Mg/2 Ml Vial) 4 mg IVPUSH Q8H PRN PRN Reason: Nausea and Vomiting Oxycodone HCl (Oxycodone Hcl Immed Release 5 Mg Tablet) 5 mg PO Q4H PRN PRN Reason: Pain, Moderate (Pain Scale 4-6 Last Admin: 03/13/22 09:21 Dose: 5 mg Pharmacy Consult (Consult Rx Perform Med Rec) 1 each MISCELLANE ONCE PRN PRN Reason: Consult order Pharmacy Consult (Consult Rx Vancomycin Dosing) 1 each MISCELLANE DAILY PRN PRN Reason: Consult order Sevelamer Carbonate (Sevelamer Carbonate Tablet 800 Mg Tablet) 800 mg PO TID [facility] Last Admin: 03/13/22 08:03 Dose: 800 mg Sodium Chloride (0.9 % Sodium Chloride Flush 3 Ml Syringe) 3 ml IVFLUSH QSHIFT [facility] Last Admin: 03/13/22 08:03 Dose: 3 ml Ursodiol (Ursodiol 300 Mg Capsule) 300 mg PO BID [facility] Last Admin: 03/13/22 09:20 Dose: 300 mg Home Medications Medication Instructions Recorded Confirmed Last Taken Type sevelamer carbonate 800 mg tablet 800 mg PO TID 01/22/20 03/05/22 06/01/21 History amlodipine 5 mg tablet 5 mg PO BEDTIME 06/01/21 03/05/22 05/31/21 History aspirin 81 mg tablet,delayed 1 tab PO DAILY 06/01/21 03/05/22 06/01/21 History release carvedilol 25 mg tablet 1 tab PO BID 06/01/21 03/05/22 06/01/21 History ursodiol 300 mg capsule 1 cap PO BID 06/01/21 03/05/22 06/01/21 History losartan 100 mg tablet 100 mg PO DAILY 01/23/22 03/05/22 Unknown History Physical Exam Vital Signs: Vital Signs: Last Vital Signs Temp 98.4 F 03/13/22 12:10 Pulse 72 03/13/22 12:10 Resp 16 03/13/22 12:10 BP 110/50 L 03/13/22 12:10 Pulse Ox 96 03/13/22 08:00 O2 Del Method 03/13/22 08:00 O2 Flow Rate 3 03/08/22 17:24 BMI result Body Mass Index 24.2 Const: General: cooperative HEENT: Head: Yes normal to inspection Face and sinus: Yes normal facial exam Mouth: Normal oral and palatal mucosa present Teeth and gingiva: dentition normal Eyes: General: appearance normal, both eyes and all related structures Pupils: Equal, round and reactive pupils present Resp: Effort & Inspection: normal respiratory effort Cardio: Rate: regular rate Rhythm: regular rhythm GI: Palpation (GI): Soft to palpation and nontender : General: Yes no CVA tenderness Back/Spine/Pelvis: Back: no CVA tenderness Skin: General skin exam: no rashes or lesions noted Neuro: General: moves all extremities Cranial nerves: Yes Equal, round and reactive pupils present Extrem: Other: right BKA site clear General: Yes normal to inspection Psych: Appearance: grossly normal Results Labs 03/12/22 10:33 01/10/23 10:03 Labs: BMP 03/13/22 10:03 Creatinine 2.37 H Urine 03/13/22 Range/Units 08:41 Urine Color DK YELLOW Urine Appearance Clear Urine pH 6.5 (5.0-9.0) Ur Specific [place] 1.015 (1.005-1.025) Urine Protein 300 (3+) H (Neg-Trace) mg/dL Urine Glucose (UA) Negative (Negative) mg/dL Microbiology Microbiology Results: Microbiology 03/05/22 17:23 Blood - Venous Blood Culture - Final No growth after 5 days. 03/05/22 17:23 Blood - Venous Blood Culture - Final No growth after 5 days. Assessment and Plan (1) Fever of unknown origin: Status: Acute He has fever with no tachycardia,tachypnea or hypoxia. He has elevated WBC to 23.5 He is on HD and wound site and dialysis site look clear. He is on Zosyn and Vancomycin. He did have diarrhea reported yesterday he says but not sure reliability historian. He has possibilities 1.antibiotic associated colitis. 2. Cdiff 3.Occult bacteremia as had gangrene on arrival. 4. Drug reaction to antibiotics (can cause leukocytosis). 5.Leukemoid reaction Suggest Hold antibiotics if blood culture negative at [address] abdomen and Cdiff if diarrhea recurs. Await blood cultures. Time Spent With Patient Time: Total time managing care of this patient today ____ minutes.
[2022-03-13 16:01] LABS: Glucose, Whole Blood 198 mg/dL (60-115)
[2022-03-13 19:43] LABS: Basophils Absolute Auto 0.1 X10*3/uL (0.0-0.2); Basophils Percent Auto 0.4 % (0-2); Eosinophils Absolute Auto 0.1 X10*3/uL (0.0-0.4); Eosinophils Percent Auto 0.4 % (0-4); Hematocrit 26.6 % (42.0-52.0); Imm Gran Pct Auto 3.8 % (0.0-0.4); Lymphocytes Absolute Auto 1.2 X10*3/uL (1.2-4.9); Lymphocytes Percent Auto 4.4 % (20-40); MANUAL DIFF FLAG SCAN; Mean Corpuscular HGB Conc 33.8 g/dl (31.0-36.0); Mean Corpuscular Volume 97.4 fL (80.0-98.0); Mean Platelet Volume 11.3 fL (9.4-12.4); Monocytes Percent Auto 3.8 % (2-11); NRBC Pct Auto 0.2 /100WBC (0.0-0.2); Neutrophils Absolute Auto 23.2 x10*3/uL (2.0-8.3); Neutrophils Percent Auto 87.2 % (45-73); Platelet Count 312 X10*3/uL (160-400); Red Blood Count 2.73 X10*6/uL (4.60-5.80); Red Cell Distribution Width 15.9 % (11.0-16.0); SCAN SMEAR FLAG 1; White Blood Count 26.6 X10*3/uL (4.8-10.8)
[2022-03-13] MEDS: amLODIPine Besylate 5 MG TABLET PO (20:05)
[2022-03-13] MEDS: Atorvastatin Calcium 40 MG TABLET PO (20:05)
[2022-03-13 20:15] LABS: SLIDE REVIEW VERIFIED
[2022-03-13 20:30] LABS: Glucose, Whole Blood 203 mg/dL (60-115)
[2022-03-14] MEDS: Heparin Sodium,Porcine 5,000 UNIT/ML VIAL 5000 UNIT SUBCUT ×3 (02:32→17:31)
[2022-03-14] MEDS: Piperacillin Sodium/Tazobactam 2.25 GM in 0.9 % Sodium Chloride 50 ML IV ×2 (02:32→08:05)
[2022-03-14] MEDS: Morphine Sulfate 2 MG/ML CARTRIDGE IVPUSH ×2 (02:32→09:17)
[2022-03-14 03:25] VITALS: BP 122/50; PULSE 67; RESP 16; TEMP 37.4; O2SAT 94
[2022-03-14 07:04] LABS: MANUAL DIFF FLAG NO
[2022-03-14 07:12] LABS: Basophils Absolute Auto 0.1 X10*3/uL (0.0-0.2); Basophils Percent Auto 0.5 % (0-2); Eosinophils Absolute Auto 0.3 X10*3/uL (0.0-0.4); Eosinophils Percent Auto 1.4 % (0-4); Hemoglobin 8.6 g/dl (14.0-18.0); Imm Gran Abs Auto 0.37 X10*3/uL (0.00-0.03); Imm Gran Pct Auto 1.7 % (0.0-0.4); Lymphocytes Percent Auto 4.8 % (20-40); Mean Corpuscular HGB Conc 33.1 g/dl (31.0-36.0); Mean Corpuscular Hemoglobin 32.8 pg (27.0-33.0); Mean Corpuscular Volume 99.2 fL (80.0-98.0); Monocytes Absolute Auto 0.7 X10*3/uL (0.1-1.2); Monocytes Percent Auto 3.4 % (2-11); NRBC Pct Auto 0.1 /100WBC (0.0-0.2); Neutrophils Absolute Auto 18.9 x10*3/uL (2.0-8.3); Neutrophils Percent Auto 88.2 % (45-73); Platelet Count 276 X10*3/uL (160-400); Red Blood Count 2.62 X10*6/uL (4.60-5.80); Red Cell Distribution Width 16.1 % (11.0-16.0); White Blood Count 21.5 X10*3/uL (4.8-10.8)
[2022-03-14 07:14] VITALS: BP 150/60; PULSE 69; RESP 19; TEMP 36.8; O2SAT 96
[2022-03-14 07:44] LABS: Glucose, Whole Blood 86 mg/dL (60-115)
[2022-03-14 07:47] LABS: Alanine Aminotransferase 43 U/L (0-40); Albumin Level 2.1 g/dL (3.5-5.0); Alkaline Phosphatase 62 U/L (39-117); Aspartate Amino Transferase 54 U/L (5-37); Bilirubin Total 0.8 mg/dL (0.0-1.0); Calcium 8.5 mg/dL (8.4-10.2); Glucose Fasting 88 mg/dL (60-99); Total Protein 5.3 g/dL (6.5-8.0)
[2022-03-14 07:52] LABS: Blood Urea Nitrogen 44 mg/dL (9-16); Creatinine Clr Calc Pharmacy 11.7; Estimated Glomerular Filt Rate 12
[2022-03-14 07:56] LABS: Anion Gap 21 (12-20); Carbon Dioxide 17 mmol/L (22-29); Chloride 98 mmol/L (96-108); Potassium 4.2 mmol/L (3.3-5.1); Sodium 132 mmol/L (135-145)
--- NOTE | 2022-03-14 09:15 | MHC.CLN ---
NUTRITION DX ESRD AND RECEIVES HEMODIALYSIS. DIET CHANGED PER RENAL PARAMETERS: DIABETIC 2200 KCALS, 2 G SODIUM, LOW POTASSIUM, LOW PHOSPHOROUS. S/P BKA. POOR PO NOTED X [address] TO FOLLOW PO.
--- NOTE | 2022-03-14 09:21 | MHC.CM.PN ---
Addendum entered by Michaela Watkins RN 03/14/22 09:30: CM ATTEMPTED TO MEET W/PT AND SON AT BEDSIDE HOWEVER PT OFF UNIT AT DIALYSIS AND SON NOT IN ROOM, CM WILL REVISIT. Original Note: EMR REVIEWED, PT HAS PENDING BC'S DUE TO FEVER OF 101. ON 03/13, REFERRAL SENT TO [facility] OF NEED FOR STR AND PT USING [facility] FOR HD MWF, CM WILL CONT TO FOLLOW D/C NEEDS.
--- NOTE | 2022-03-14 09:47 | P.CDIC_ITS ---
CDI Concurrent Query Documentation Clarification: PHYSICIAN'S DOCUMENTATION REQUEST Date of Query: 03/14/22 0947 Patient Name: Jean-Pierre Calderón Admit Date: 03/06/22 Dear Doctor, A review of the medical record indicates additional documentation may be needed. Please review below and update the documentation accordingly. Clinical Indicators: Risk Factors/Clinical Indicators/Treatments S/P below the knee amputation on 03/08/22. HGB 03/12 - 6.9 Blood pressure 122/50 L HCT 03/12 - 21.4 Transfused 2 units of PRBC HBG 03/13 - 9.0 HCT 03/13 - 26.6 Based on the above, could you clarify in the Progress Notes which of the following is the most likely type of anemia you are evaluating, treating, and/or monitoring? Postoperative acute blood loss anemia (expected or other) * Acute blood loss anemia due to other etiology of findings (specify type) * Anemia * Other ? please specify * Unable to determine Use of terms such as suspected, likely, concern for, or probable (associated with a specific diagnosis that is being evaluated, monitored, or treated as if it exists) are acceptable and can be coded in the inpatient setting, when documented at the time of discharge. Thank you, Lashay Lopez [facility], CDIS Extension: [phone] Please use your independent medical judgment in providing your response. THIS QUERY IS PART OF THE PERMANENT MEDICAL RECORD Provider Response: Other Other Diagnosis: Anemia secondary to end-stage renal disease on hemodialysis
--- NOTE | 2022-03-14 12:15 | P.PNIM_ITS ---
Subjective Subjective Date of Service: 03/14/22 Interval History: No acute issues overnight. HD this a.m. without issue. Afebrile times 24 hours Review of Systems Denies chest pain Denies shortness of breath Admits fevers Denies nausea vomiting diarrhea Physical Exam Vital Signs: Vital Signs: Last Vital Signs Temp 98.2 F 03/14/22 07:14 Pulse 69 03/14/22 07:14 Resp 19 03/14/22 07:14 BP 150/60 H 03/14/22 07:14 Pulse Ox 96 03/14/22 07:14 O2 Del Method 03/14/22 07:14 O2 Flow Rate 3 03/08/22 17:24 BMI result Body Mass Index 24.2 Const: Other: No acute distress Resp: Other: Clear to auscultation bilaterally no rales rhonchi or wheezes Cardio: Other: No S4; positive S1-S2; no S3 murmurs rubs or gallops GI: Other: Soft nontender nondistended normoactive bowel sounds Extrem: Other: Bilateral BKA Objective Data Active Medications Acetaminophen (Acetaminophen 325 Mg Tablet) 650 mg PO Q6H PRN PRN Reason: Pain, Mild (Pain Scale 1-3) Last Admin: 03/13/22 18:51 Dose: 650 mg Documented By: MARY Amlodipine Besylate (Amlodipine Besylate 5 Mg Tablet) 5 mg PO BEDTIME [facility]; Protocol Last Admin: 03/13/22 20:05 Dose: 5 mg Documented By: DELVIS Aspirin (Aspirin Enteric Coated 81 Mg Tablet.Dr) 81 mg PO DAILY [facility] Last Admin: 03/14/22 10:41 Dose: Not Given Documented By: AMBROSE Non-Admin Reason: Off unit: Dialysis Atorvastatin Calcium (Atorvastatin Calcium 40 Mg Tablet) 40 mg PO BEDTIME [facility] Last Admin: 03/13/22 20:05 Dose: 40 mg Documented By: DELVIS Bumetanide (Bumetanide 1 Mg Tablet) 1 mg PO DAILY [facility]; Protocol Last Admin: 03/14/22 10:41 Dose: Not Given Documented By: AMBROSE Non-Admin Reason: Off unit: Dialysis Carvedilol (Carvedilol 25 Mg Tablet) 25 mg PO BID [facility]; Protocol Last Admin: 03/14/22 10:41 Dose: Not Given Documented By: AMBROSE Non-Admin Reason: Off unit: Dialysis Dextrose (Dextrose 50 % 25 Gm/50 Ml Syringe) 25 gm IVPUSH Q15M PRN; Protocol PRN Reason: per Hypoglycemia Standing Ord. Docusate Sodium (Docusate Sodium 100 Mg Capsule) 100 mg PO DAILY PRN PRN Reason: Constipation Docusate Sodium (Docusate Sodium 100 Mg Capsule) 100 mg PO DAILY [facility] Last Admin: 03/14/22 10:42 Dose: Not Given Documented By: AMBROSE Non-Admin Reason: Off unit: Dialysis Ergocalciferol (Ergocalciferol (Vitamin D2) 1,250 Mcg Capsule) 1,250 mcg PO Mo [facility] Last Admin: 03/12/22 11:16 Dose: Not Given Documented By: DARNELL Non-Admin Reason: lethargic Ferrous Sulfate (Ferrous Sulfate 324 Mg Tablet.Dr) 324 mg PO TID [facility] Last Admin: 03/14/22 10:42 Dose: Not Given Documented By: AMBROSE Non-Admin Reason: Off unit: Dialysis Glucose (Glucose Gel 15 Gm Gel..Gram.) 15 gm PO Q15M PRN; Protocol PRN Reason: per Hypoglycemia Standing Ord. Heparin Sodium (Porcine) (Heparin Sodium,Porcine 5,000 Unit/Ml Vial) 5,000 unit SUBCUT Q8H [facility] Last Admin: 03/14/22 02:32 Dose: 5,000 unit Documented By: DELVIS Lactated Ringer's (Lr) 1,000 mls @ 80 mls/hr IVCONT .[id number] [facility] Last Admin: 03/13/22 21:30 Dose: 80 mls/hr Documented By: DELVIS Insulin Human Lispro (Insulin Lispro 100 Unit/Ml 3 Ml Vial) 0 unit SUBCUT QIDACHS [facility]; Protocol Last Admin: 03/14/22 07:47 Dose: Not Given Documented By: AMBROSE Non-Admin Reason: No Insulin Coverage Losartan Potassium (Losartan Potassium 50 Mg Tablet) 100 mg PO DAILY [facility]; Protocol Last Admin: 03/14/22 10:42 Dose: Not Given Documented By: AMBROSE Non-Admin Reason: Off unit: Dialysis Morphine Sulfate (Morphine Sulfate 2 Mg/Ml Cartridge) 2 mg IVPUSH Q6H PRN; Protocol PRN Reason: Pain, Severe (Pain Scale 7-10) Last Admin: 03/14/22 09:17 Dose: 2 mg Documented By: AMBROSE Multivitamins/Vitamin C (Multivitamin Tablet) 1 tab PO DAILY [facility] Last Admin: 03/14/22 10:42 Dose: Not Given Documented By: AMBROSE Non-Admin Reason: Off unit: Dialysis Ondansetron HCl (Ondansetron Hcl 4 Mg/2 Ml Vial) 4 mg IVPUSH Q8H PRN PRN Reason: Nausea and Vomiting Oxycodone HCl (Oxycodone Hcl Immed Release 5 Mg Tablet) 5 mg PO Q4H PRN PRN Reason: Pain, Moderate (Pain Scale 4-6 Last Admin: 03/13/22 18:51 Dose: 5 mg Documented By: MARY Pharmacy Consult (Consult Rx Perform Med Rec) 1 each MISCELLANE ONCE PRN PRN Reason: Consult order Pharmacy Consult (Consult Rx Vancomycin Dosing) 1 each MISCELLANE DAILY PRN PRN Reason: Consult order Sevelamer Carbonate (Sevelamer Carbonate Tablet 800 Mg Tablet) 800 mg PO TID [facility] Last Admin: 03/14/22 10:42 Dose: Not Given Documented By: AMBROSE Non-Admin Reason: Off unit: Dialysis Sodium Chloride (0.9 % Sodium Chloride Flush 3 Ml Syringe) 3 ml IVFLUSH QSHIFT [facility] Last Admin: 03/14/22 07:47 Dose: Not Given Documented By: AMBRSOE Non-Admin Reason: IV Running Ursodiol (Ursodiol 300 Mg Capsule) 300 mg PO BID [facility] Last Admin: 03/14/22 10:43 Dose: Not Given Documented By: AMBROSE Non-Admin Reason: Off Unit: Surgery Labs 03/14/22 06:03 03/14/22 06:03 Labs: Laboratory Results - last 24 hr 03/12/22 03/13/22 03/13/22 16:38 15:57 19:20 MCV 97.4 MCH 33.0 MCHC 33.8 RDW 15.9 Plt Count 312 MPV 11.3 Immature Gran % (Auto) 3.8 H Neut % (Auto) 87.2 H Lymph % (Auto) 4.4 L [place] % (Auto) 3.8 Eos % (Auto) 0.4 Baso % (Auto) 0.4 Lymph # (Auto) 1.2 [place] # (Auto) 1.0 Eos # (Auto) 0.1 Baso # (Auto) 0.1 Abs Immat Gran (auto) 1.00 H Absolute Neuts (auto) 23.2 H Absolute Nucleated RBC 0.040 H Nucleated RBC % (auto) 0.2 Smear Tech's Comments VERIFIED Anion Gap Estim Creat Clear Calc Estimated GFR POC Glucose 198 H Fasting Glucose Calcium Total Bilirubin AST ALT Alkaline Phosphatase Total Protein Albumin Crossmatch See Detail 03/13/22 03/14/22 03/14/22 20:25 06:03 06:03 MCV 99.2 H MCH 32.8 MCHC 33.1 RDW 16.1 H Plt Count 276 MPV 11.0 Immature Gran % (Auto) 1.7 H Neut % (Auto) 88.2 H Lymph % (Auto) 4.8 L [place] % (Auto) 3.4 Eos % (Auto) 1.4 Baso % (Auto) 0.5 Lymph # (Auto) 1.0 L [place] # (Auto) 0.7 Eos # (Auto) 0.3 Baso # (Auto) 0.1 Abs Immat Gran (auto) 0.37 H Absolute Neuts (auto) 18.9 H Absolute Nucleated RBC 0.030 H Nucleated RBC % (auto) 0.1 Smear Tech's Comments Anion Gap 21 H Estim Creat Clear Calc 11.7 Estimated GFR 12 POC Glucose 203 H Fasting Glucose 88 Calcium 8.5 D Total Bilirubin 0.8 AST 54 H ALT 43 H Alkaline Phosphatase 62 Total Protein 5.3 L Albumin 2.1 L Crossmatch 03/14/22 07:10 MCV MCH MCHC RDW Plt Count MPV Immature Gran % (Auto) Neut % (Auto) Lymph % (Auto) [place] % (Auto) Eos % (Auto) Baso % (Auto) Lymph # (Auto) [place] # (Auto) Eos # (Auto) Baso # (Auto) Abs Immat Gran (auto) Absolute Neuts (auto) Absolute Nucleated RBC Nucleated RBC % (auto) Smear Tech's Comments Anion Gap Estim Creat Clear Calc Estimated GFR POC Glucose 86 Fasting Glucose Calcium Total Bilirubin AST ALT Alkaline Phosphatase Total Protein Albumin Crossmatch Microbiology Microbiology Results: Microbiology 03/13/22 10:03 Blood Culture - Preliminary Blood - Venous No growth after 24 hours. 01/10/23 10:03 Blood Culture - Preliminary Blood - Venous No growth after 24 hours. Assessment and Plan (1) Wet gangrene: Status: Acute (2) Anemia: Status: Acute (3) ESRD (end stage renal disease) on dialysis: Status: Acute (4) Diabetes: Status: Acute Plan 76-year-old male with past medical history of peripheral vascular disease, diabetes, ESRD on dialysis, presents to the hospital with complaints of right foot? infection found to have gangrenous foot. Status post BKA 03/08/2022 1.Wet gangrene(afebrile times 24 hours) - s/p Right below-knee amputation and? Myodesis on 03/08/22, POD5 -as per ID; blood cultures negative at 24 hours will DC antibiotics and follow 2. Anemia -as per Renal; will transfuse for hemoglobin of 11 -follow serial CBCs 3.Diabetes II -acceptable control on current therapies -Lispro correctional scale -ADA diet -adjust as indicated 4.HTN -acceptable control on current therapies -adjust as indicated 5..ESRD - dialysis MWF - Nephro following PPX: heparin Full COde Discussed with son at bedside Will require ongoing hospitalization for IV antibiotics pending investigation of new fever Time Spent With Patient Time: Total time managing care of this patient today ____ minutes. Quality Stroke Does the patient have a stroke diagnosis?: No VTE Prior VTE?: No VTE Risk Level:: Medical - moderate - high VTE Device Contraindication: Treatment Not Indicated VTE Drug Contraindication: N/A - Med Ordered
[2022-03-14] MEDS: Lactated Ringers 1,000 ML 80 ML IVCONT (13:30)
[2022-03-14 13:35] LABS: Vancomycin Random 13.4 mcg/mL (15-20)
[2022-03-14] MEDS: Ferrous Sulfate 324 MG TABLET.DR PO ×2 (15:15→21:37)
[2022-03-14] MEDS: Sevelamer Carbonate Tablet 800 MG TABLET PO ×2 (15:15→21:37)
[2022-03-14 15:20] VITALS: BP 147/65; PULSE 76; RESP 19; TEMP 37.2; O2SAT 96
[2022-03-14 16:28] LABS: Glucose, Whole Blood 127 mg/dL (60-115)
[2022-03-14] MEDS: oxyCODONE HCl Immed Release 5 MG TABLET PO (17:37)
[2022-03-14] MEDS: Acetaminophen 325 MG TABLET 650 MG PO (17:37)
--- NOTE | 2022-03-14 18:58 | PM.PNNEP ---
Subjective Subjective Date of Service: 03/14/22 Interval history: Seen on HD this AM. D/W HD RN. All recent data reviewed Physical Exam Vital Signs: Vital Signs: Last Vital Signs Temp 98.9 F 03/14/22 15:20 Pulse 76 03/14/22 15:20 Resp 19 03/14/22 15:20 BP 147/65 H 03/14/22 15:20 Pulse Ox 96 03/14/22 15:20 O2 Del Method 03/14/22 15:20 O2 Flow Rate 3 03/08/22 17:24 BMI result Body Mass Index 24.2 Const: General: no acute distress Eyes: EOM: EOMs intact bilaterally Resp: Auscultation: diminished lung sounds Cardio: Rate: regular rate GI: Palpation (GI): Soft to palpation Neuro: Other: Alert and awake Objective Data Labs 03/14/22 06:03 03/14/22 06:03 Labs: Laboratory Results - last 24 hr 03/13/22 03/13/22 03/14/22 19:20 20:25 06:03 WBC 26.6 H 21.5 H RBC 2.73 L D 2.62 L Hgb 9.0 L D 8.6 L Hct 26.6 L D 26.0 L MCV 97.4 99.2 H MCH 33.0 32.8 MCHC 33.8 33.1 RDW 15.9 16.1 H Plt Count 312 276 MPV 11.3 11.0 Immature Gran % (Auto) 3.8 H 1.7 H Neut % (Auto) 87.2 H 88.2 H Lymph % (Auto) 4.4 L 4.8 L [place] % (Auto) 3.8 3.4 Eos % (Auto) 0.4 1.4 Baso % (Auto) 0.4 0.5 Lymph # (Auto) 1.2 1.0 L [place] # (Auto) 1.0 0.7 Eos # (Auto) 0.1 0.3 Baso # (Auto) 0.1 0.1 Abs Immat Gran (auto) 1.00 H 0.37 H Absolute Neuts (auto) 23.2 H 18.9 H Absolute Nucleated RBC 0.040 H 0.030 H Nucleated RBC % (auto) 0.2 0.1 Smear Tech's Comments VERIFIED Sodium Potassium Chloride Carbon Dioxide Anion Gap BUN Creatinine Estim Creat Clear Calc Estimated GFR POC Glucose 203 H Fasting Glucose Calcium Total Bilirubin AST ALT Alkaline Phosphatase Total Protein Albumin Random Vancomycin 03/14/22 03/14/22 03/14/22 06:03 07:10 12:59 WBC RBC Hgb Hct MCV MCH MCHC RDW Plt Count MPV Immature Gran % (Auto) Neut % (Auto) Lymph % (Auto) [place] % (Auto) Eos % (Auto) Baso % (Auto) Lymph # (Auto) [place] # (Auto) Eos # (Auto) Baso # (Auto) Abs Immat Gran (auto) Absolute Neuts (auto) Absolute Nucleated RBC Nucleated RBC % (auto) Smear Tech's Comments Sodium 132 L Potassium 4.2 D Chloride 98 Carbon Dioxide 17 L Anion Gap 21 H BUN 44 H Creatinine 4.72 H* Estim Creat Clear Calc 11.7 Estimated GFR 12 POC Glucose 86 Fasting Glucose 88 Calcium 8.5 D Total Bilirubin 0.8 AST 54 H ALT 43 H Alkaline Phosphatase 62 Total Protein 5.3 L Albumin 2.1 L Random Vancomycin 13.4 L 03/14/22 15:59 WBC RBC Hgb Hct MCV MCH MCHC RDW Plt Count MPV Immature Gran % (Auto) Neut % (Auto) Lymph % (Auto) [place] % (Auto) Eos % (Auto) Baso % (Auto) Lymph # (Auto) [place] # (Auto) Eos # (Auto) Baso # (Auto) Abs Immat Gran (auto) Absolute Neuts (auto) Absolute Nucleated RBC Nucleated RBC % (auto) Smear Tech's Comments Sodium Potassium Chloride Carbon Dioxide Anion Gap BUN Creatinine Estim Creat Clear Calc Estimated GFR POC Glucose 127 H Fasting Glucose Calcium Total Bilirubin AST ALT Alkaline Phosphatase Total Protein Albumin Random Vancomycin Microbiology Microbiology Results: Microbiology 03/13/22 10:03 Blood - Venous Blood Culture - Preliminary No growth after 24 hours. 03/13/22 10:03 Blood - Venous Blood Culture - Preliminary No growth after 24 hours. 03/05/22 17: Blood - Venous Blood Culture - Final No growth after 5 days. 03/05/22 17: Blood - Venous Blood Culture - Final No growth after 5 days. Procedures Date of Service Date of Service: 03/14/22 Assessment & Plan Assessment and plan (1) ESRD (end stage renal disease) on dialysis: Status: Acute Assessment and Plan: Usually?gets? HD MWF at [facility] HD unit admitted with wet gangrene now s/p amputation renal diet; phosphate binders dose medication for GFR<10 Procrit [id number] Units MWF Seen on HD. Tolerating HD well C/W rest of current management Progress Note: Quality Stroke Does the patient have a stroke diagnosis?: No
[2022-03-14 20:00] VITALS: BP 119/67; PULSE 71; RESP 17; TEMP 36.4; O2SAT 94
[2022-03-14 21:17] LABS: Glucose, Whole Blood 151 mg/dL (60-115)
[2022-03-14] MEDS: Atorvastatin Calcium 40 MG TABLET PO (21:37)
[2022-03-14] MEDS: UrsodioL 300 MG CAPSULE PO (21:37)
[2022-03-14] MEDS: carvediloL 25 MG TABLET PO (21:37)
[2022-03-14] MEDS: amLODIPine Besylate 5 MG TABLET PO (21:37)
[2022-03-14] MEDS: 0.9 % Sodium Chloride Flush 3 ML SYRINGE IVFLUSH (21:38)
[2022-03-14] MEDS: Insulin Lispro 100 UNIT/ML 3 ML VIAL SUBCUT (21:38)
[2022-03-15 00:21] VITALS: PULSE 67; RESP 18; O2SAT 95
[2022-03-15] MEDS: Morphine Sulfate 2 MG/ML CARTRIDGE IVPUSH (00:22)
[2022-03-15] MEDS: Heparin Sodium,Porcine 5,000 UNIT/ML VIAL 5000 UNIT SUBCUT ×2 (01:44→10:47)
[2022-03-15 03:56] VITALS: BP 141/55; PULSE 70; RESP 17; TEMP 36.2; O2SAT 94
[2022-03-15 05:33] LABS: MANUAL DIFF FLAG NO
[2022-03-15 05:36] LABS: Basophils Absolute Auto 0.1 X10*3/uL (0.0-0.2); Basophils Percent Auto 0.4 % (0-2); Eosinophils Absolute Auto 0.5 X10*3/uL (0.0-0.4); Eosinophils Percent Auto 2.6 % (0-4); Hematocrit 25.9 % (42.0-52.0); Hemoglobin 8.6 g/dl (14.0-18.0); Imm Gran Abs Auto 0.28 X10*3/uL (0.00-0.03); Imm Gran Pct Auto 1.4 % (0.0-0.4); Lymphocytes Absolute Auto 0.7 X10*3/uL (1.2-4.9); Lymphocytes Percent Auto 3.2 % (20-40); Mean Corpuscular HGB Conc 33.2 g/dl (31.0-36.0); Mean Corpuscular Hemoglobin 33.6 pg (27.0-33.0); Mean Corpuscular Volume 101.2 fL (80.0-98.0); Mean Platelet Volume 10.8 fL (9.4-12.4); Monocytes Absolute Auto 0.8 X10*3/uL (0.1-1.2); Monocytes Percent Auto 4.1 % (2-11); Neutrophils Absolute Auto 17.7 x10*3/uL (2.0-8.3); Neutrophils Percent Auto 88.3 % (45-73); Platelet Count 260 X10*3/uL (160-400); Red Blood Count 2.56 X10*6/uL (4.60-5.80); Red Cell Distribution Width 16.3 % (11.0-16.0); White Blood Count 20.1 X10*3/uL (4.8-10.8)
[2022-03-15 06:02] LABS: Alanine Aminotransferase 49 U/L (0-40); Albumin Level 2.1 g/dL (3.5-5.0); Alkaline Phosphatase 75 U/L (39-117); Anion Gap 14 (12-20); Aspartate Amino Transferase 59 U/L (5-37); Bilirubin Total 0.7 mg/dL (0.0-1.0); Blood Urea Nitrogen 24 mg/dL (9-16); Calcium 8.2 mg/dL (8.4-10.2); Carbon Dioxide 18 mmol/L (22-29); Chloride 99 mmol/L (96-108); Creatinine Clr Calc Pharmacy 18.5; Estimated Glomerular Filt Rate 21; Glucose Fasting 128 mg/dL (60-99); Potassium 3.4 mmol/L (3.3-5.1); Sodium 128 mmol/L (135-145); Total Protein 5.5 g/dL (6.5-8.0)
[2022-03-15 07:37] VITALS: BP 143/59; PULSE 74; RESP 18; TEMP 37; O2SAT 96
[2022-03-15 07:47] LABS: Glucose, Whole Blood 140 mg/dL (60-115)
[2022-03-15] MEDS: Acetaminophen 325 MG TABLET 650 MG PO (07:52)
[2022-03-15] MEDS: carvediloL 25 MG TABLET PO (07:52)
[2022-03-15] MEDS: Bumetanide 1 MG TABLET PO (07:52)
[2022-03-15] MEDS: Aspirin Enteric Coated 81 MG TABLET.DR PO (07:53)
[2022-03-15] MEDS: Ferrous Sulfate 324 MG TABLET.DR PO (07:53)
[2022-03-15] MEDS: UrsodioL 300 MG CAPSULE PO (07:53)
[2022-03-15] MEDS: Multivitamin TABLET 1 TAB PO (07:53)
[2022-03-15] MEDS: Sevelamer Carbonate Tablet 800 MG TABLET PO ×2 (07:53→15:46)
[2022-03-15] MEDS: oxyCODONE HCl Immed Release 5 MG TABLET PO ×2 (07:53→15:46)
[2022-03-15] MEDS: 0.9 % Sodium Chloride Flush 3 ML SYRINGE IVFLUSH (07:57)
[2022-03-15] MEDS: Losartan Potassium 50 MG TABLET 100 MG PO (07:57)
[2022-03-15] MEDS: Docusate Sodium 100 MG CAPSULE PO (07:58)
--- NOTE | 2022-03-15 10:12 | PM.PNNEP ---
Subjective Subjective Date of Service: 03/15/22 Interval history: Seen this AM. All recent data reviewed Physical Exam Vital Signs: Vital Signs: Last Vital Signs Temp 98.6 F 03/15/22 07:37 Pulse 74 03/15/22 07:37 Resp 18 03/15/22 07:37 BP 143/59 H 03/15/22 07:37 Pulse Ox 96 03/15/22 07:37 O2 Del Method 03/15/22 07:37 O2 Flow Rate 3 03/08/22 17:24 BMI result Body Mass Index 24.2 Const: General: no acute distress Eyes: EOM: EOMs intact bilaterally Resp: Auscultation: diminished lung sounds Cardio: Rate: regular rate GI: Palpation (GI): Soft to palpation Neuro: Other: Alert and awake Objective Data Labs 03/15/22 05:25 03/15/22 05:25 Labs: Laboratory Results - last 24 hr 03/14/22 03/14/22 03/14/22 12:59 15:59 20:47 WBC RBC Hgb Hct MCV MCH MCHC RDW Plt Count MPV Immature Gran % (Auto) Neut % (Auto) Lymph % (Auto) [place] % (Auto) Eos % (Auto) Baso % (Auto) Lymph # (Auto) [place] # (Auto) Eos # (Auto) Baso # (Auto) Abs Immat Gran (auto) Absolute Neuts (auto) Absolute Nucleated RBC Nucleated RBC % (auto) Sodium Potassium Chloride Carbon Dioxide Anion Gap BUN Creatinine Estim Creat Clear Calc Estimated GFR POC Glucose 127 H 151 H Fasting Glucose Calcium Total Bilirubin AST ALT Alkaline Phosphatase Total Protein Albumin Random Vancomycin 13.4 L 03/15/22 03/15/22 03/15/22 05:25 05:25 07:35 WBC 20.1 H RBC 2.56 L Hgb 8.6 L Hct 25.9 L MCV 101.2 H MCH 33.6 H MCHC 33.2 RDW 16.3 H Plt Count 260 MPV 10.8 Immature Gran % (Auto) 1.4 H Neut % (Auto) 88.3 H Lymph % (Auto) 3.2 L [place] % (Auto) 4.1 Eos % (Auto) 2.6 Baso % (Auto) 0.4 Lymph # (Auto) 0.7 L [place] # (Auto) 0.8 Eos # (Auto) 0.5 H Baso # (Auto) 0.1 Abs Immat Gran (auto) 0.28 H Absolute Neuts (auto) 17.7 H Absolute Nucleated RBC 0.000 Nucleated RBC % (auto) 0.0 Sodium 128 L Potassium 3.4 Chloride 99 Carbon Dioxide 18 L Anion Gap 14 BUN 24 H Creatinine 2.99 H Estim Creat Clear Calc 18.5 Estimated GFR 21 POC Glucose 140 H Fasting Glucose 128 H Calcium 8.2 L Total Bilirubin 0.7 AST 59 H ALT 49 H Alkaline Phosphatase 75 Total Protein 5.5 L Albumin 2.1 L Random Vancomycin Microbiology Microbiology Results: Microbiology 03/13/22 10:03 Blood - Venous Blood Culture - Preliminary No growth after 24 hours. 03/13/22 10:03 Blood - Venous Blood Culture - Preliminary No growth after 24 hours. 03/05/22 17:23 Blood - Venous Blood Culture - Final No growth after 5 days. 03/05/22 17:23 Blood - Venous Blood Culture - Final No growth after 5 days. Procedures Date of Service Date of Service: 03/15/22 Assessment & Plan Assessment and plan (1) ESRD (end stage renal disease) on dialysis: Status: Acute Assessment and Plan: Usually?gets? HD MWF at [facility] HD unit admitted with wet gangrene now s/p amputation renal diet; phosphate binders dose medication for GFR<10 Procrit [id number] Units MWF Tolerating HD well C/W rest of current management Time Spent With Patient Time: Total time managing care of this patient today ____ minutes. Progress Note: Quality Stroke Does the patient have a stroke diagnosis?: No
[2022-03-15 11:22] LABS: Glucose, Whole Blood 135 mg/dL (60-115)
--- NOTE | 2022-03-15 13:08 | P.DS_ITS ---
DS: Providers Provider Date of Service: 03/15/22 Date of admission: 03/06/22 00:36 Date of discharge: 03/15/22 Primary care physician: Sanjana Guerrero MD Consults: 03/06/22 00:35 Consult to Vascular Surgery Routine Consulting Provider: August Swan Reason for consultation: Gangrenous foot Has provider been notified: Yes 03/06/22 01:37 Consult to Nephrology Routine Consulting Provider: [facility] Reason for consultation: Dialysis Has provider been notified: No 03/13/22 12:09 Consult to Infectious Diseases Stat Consulting Provider: Yris Park Reason for consultation: Fever Has provider been notified: Yes DS: Diagnosis Discharge Diagnosis (1) Gangrene of right foot: Status: Acute (2) ESRD (end stage renal disease) on dialysis: Status: Acute (3) Hypertension: Status: Acute (4) Anemia in chronic kidney disease: Status: Acute DS: Summary Hospital Course Hospital Course: 76-year-old male with past medical history of ESRD on dialysis MWF,? peripheral vascular disease, hypertension, osteoarthritis, as well as left BKA presents the hospital with complaint right foot gangrene patient is mostly Welsh speaking with some Italian, history is obtained? mostly from [place] has no lyric writer is available at this time.? Patient reports that he? noticed skin changes of his right foot about 2 months ago, worsened within the past week, denies any pain, no fever or chills, no chest pain, no abdominal pain, no nausea or vomiting, no diarrhea constipation, no urinary symptoms. ? On arrival to the ED patient found to be hemodynamically stable with no significant abnormal vitals Labs are significant for WBC count of 16.1, hemoglobin of 8.8 which is close to his baseline, hematocrit 26.7, INR of 1.3, creatinine of 2.94, CRP of 16.4, Venous duplex negative for DVT;?arterial duplex shows monophasic flow throughout the bilateral lower extremities suggesting inflow disease significant atherosclerotic disease throughout the? right lower extremity aorta with runoff CTA shows no iliac inflow disease, on the right there is SFA disease with moderate to marked popliteal disease. Patient's case was discussed with vascular surgery, patient will be started on heparin drip and admitted for further management Hospital Course Patient admitted to general medical floor and consult were placed to both nephrology and vascular surgery. Nephrology saw patient generated hemodialysis while inpatient. Patient was started on broad-spectrum antibiotics and seen by vascular surgery. On 03/08/2022, patient underwent BKA on the right. This surgery went uneventful however patient developed fevers approximately 48 hours after surgery. Blood cultures x2 were obtained and Infectious Disease consulted. Infectious Disease felt that this was likely an antibiotic related fever and at 24:00 hours of negative blood cultures the antibiotics were DCd. At the time of discharge patient has been afebrile for essentially 72 hours and cultures are negative. Family is very involved in care and services are in place and he will be discharged home to the care of his family with services. Outpatient dialysis is being arranged by Nephrology Time Spent with Patient Time attestation: Total time managing care of this patient today ____ minutes. Discharge coordination time: Greater than 30 minutes Quality: Safe Use of Opioids Does Pt have an Active Cancer Diagnosis on the Problem List?: No Quality: Stroke Does the patient have a stroke diagnosis?: No Physical Exam Vital Signs: Vital Signs: Last Vital Signs Temp 98.6 F 03/15/22 07:37 Pulse 74 03/15/22 07:37 Resp 18 03/15/22 07:37 BP 143/59 H 03/15/22 07:37 Pulse Ox 96 03/15/22 07:37 O2 Del Method 03/15/22 07:37 O2 Flow Rate 3 03/08/22 17:24 BMI result Body Mass Index 24.2 Const: Other: No acute distress Resp: Other: Clear to auscultation bilaterally no rales rhonchi or wheezes Cardio: Other: No S4; positive S1-S2; no S3 murmurs rubs or gallops GI: Other: Soft nontender nondistended normoactive bowel sounds Extrem: Other: Bilateral BKA DS: Data Data Completed and Pending Completed studies during hospitalization [Text1]: Pending at discharge 03/08/22 16:33 Surgical [PTH] Routine Procedures Detachment at Left Lower Leg, Mid, Open Approach (06/01/21) Performance of Urinary Filtration, Intermittent, Less than 6 Hours Per Day (06/01/21) Transfusion of Nonautologous Red Blood Cells into Peripheral Vein, Percutaneous Approach (06/01/21) Labs on day of discharge: Laboratory Results - last 24 hr 03/14/22 03/14/22 03/14/22 12:59 15:59 20:47 WBC RBC Hgb Hct MCV MCH MCHC RDW Plt Count MPV Immature Gran % (Auto) Neut % (Auto) Lymph % (Auto) [place] % (Auto) Eos % (Auto) Baso % (Auto) Lymph # (Auto) [place] # (Auto) Eos # (Auto) Baso # (Auto) Abs Immat Gran (auto) Absolute Neuts (auto) Absolute Nucleated RBC Nucleated RBC % (auto) Sodium Potassium Chloride Carbon Dioxide Anion Gap BUN Creatinine Estim Creat Clear Calc Estimated GFR POC Glucose 127 H 151 H Fasting Glucose Calcium Total Bilirubin AST ALT Alkaline Phosphatase Total Protein Albumin Random Vancomycin 13.4 L 03/15/22 03/15/22 03/15/22 05:25 05:25 07:35 WBC 20.1 H RBC 2.56 L Hgb 8.6 L Hct 25.9 L MCV 101.2 H MCH 33.6 H MCHC 33.2 RDW 16.3 H Plt Count 260 MPV 10.8 Immature Gran % (Auto) 1.4 H Neut % (Auto) 88.3 H Lymph % (Auto) 3.2 L [place] % (Auto) 4.1 Eos % (Auto) 2.6 Baso % (Auto) 0.4 Lymph # (Auto) 0.7 L [place] # (Auto) 0.8 Eos # (Auto) 0.5 H Baso # (Auto) 0.1 Abs Immat Gran (auto) 0.28 H Absolute Neuts (auto) 17.7 H Absolute Nucleated RBC 0.000 Nucleated RBC % (auto) 0.0 Sodium 128 L Potassium 3.4 Chloride 99 Carbon Dioxide 18 L Anion Gap 14 BUN 24 H Creatinine 2.99 H Estim Creat Clear Calc 18.5 Estimated GFR 21 POC Glucose 140 H Fasting Glucose 128 H Calcium 8.2 L Total Bilirubin 0.7 AST 59 H ALT 49 H Alkaline Phosphatase 75 Total Protein 5.5 L Albumin 2.1 L Random Vancomycin 03/15/22 11:06 WBC RBC Hgb Hct MCV MCH MCHC RDW Plt Count MPV Immature Gran % (Auto) Neut % (Auto) Lymph % (Auto) [place] % (Auto) Eos % (Auto) Baso % (Auto) Lymph # (Auto) [place] # (Auto) Eos # (Auto) Baso # (Auto) Abs Immat Gran (auto) Absolute Neuts (auto) Absolute Nucleated RBC Nucleated RBC % (auto) Sodium Potassium Chloride Carbon Dioxide Anion Gap BUN Creatinine Estim Creat Clear Calc Estimated GFR POC Glucose 135 H Fasting Glucose Calcium Total Bilirubin AST ALT Alkaline Phosphatase Total Protein Albumin Random Vancomycin Preliminary micro results at discharge 03/13/22 10:03 Blood Culture - Preliminary Blood - Venous No growth after 48 hours. 03/13/22 10:03 Blood Culture - Preliminary Blood - Venous No growth after 48 hours. Discharge Plan Discharge Anticipated Discharge Date/Time: 03/15/22 13:00 Patient Disposition: Home Health Service Discharge Diagnosis: Gangrene right foot S/P BKA Referrals: [facility] [Other] - 1 Week Sanjana Huitron MD [Primary Care Provider] - 1 Week Discharge Medications: Continued (DME) diabetic shoes 9 See Rx Instructions .Route .MEDSUPPLY Qty: 1 0RF Rx Instructions: As directed (DME) Gel mattress overlay Misc See Rx Instructions .Route Qty: 1 0RF Rx Instructions: As directed insulin glargine U-300 conc 300 unit/mL (3 mL) insulin pen 10 unit subcut BID Qty: 6 0RF Virt-Caps 1 mg capsule 1 cap PO DAILY 90 Days Qty: 90 1RF docusate sodium [Colace] 100 mg capsule 100 mg PO DAILY Qty: 30 0RF atorvastatin 40 mg tablet 40 mg PO BEDTIME 90 Days Qty: 90 1RF acetaminophen [Mapap Arthritis Pain] 650 mg tablet extended release 650 mg PO Q8H PRN (Reason: pain) 30 Days Qty: 90 1RF ergocalciferol (vitamin D2) [Vitamin D2] 1,250 mcg (50,000 unit) capsule 1,250 mcg PO QWEEK 30 Days Qty: 5 0RF bumetanide 1 mg tablet 1 mg PO DAILY Qty: 30 6RF fenofibrate nanocrystallized 145 mg tablet 145 mg PO DAILY Qty: 30 6RF ferrous sulfate 325 mg (65 mg iron) tablet 325 mg PO TID 30 Days Qty: 90 6RF carvedilol 25 mg tablet 1 tab PO BID aspirin 81 mg tablet,delayed release (DR/EC) 1 tab PO DAILY ursodiol 300 mg capsule 1 cap PO BID amlodipine 5 mg tablet 5 mg PO BEDTIME (DME) Blood Pressure Cuff Misc See Rx Instructions .Route Qty: 1 0RF Rx Instructions: As directed (DME) blood-glucose meter [FreeStyle Lite Meter] Kit See Rx Instructions .Route Qty: 1 0RF Rx Instructions: As directed (DME) FreeStyle Lite Strips Strip See Rx Instructions .Route Qty: 100 11RF Rx Instructions: Use 1 test strip TID (DME) lancets [FreeStyle Lancets] 28 gauge misc See Rx Instructions .Route Qty: 100 10RF Rx Instructions: Use 1 lancet once a day sevelamer carbonate 800 mg tablet 800 mg PO TID (DME) blood pressure monitor Kit See Rx Instructions .Route Qty: 1 0RF Rx Instructions: As directed losartan 100 mg tablet 100 mg PO DAILY Discharge Orders: Discharge Order (Routine); Ordered 03/15/22 Ordered By: Baljit Koch Diet: Advance to usual diet Activity on Discharge: As tolerated Stand Alone Forms: Patient Portal Discharge page Activity Restrictions/Additional Instructions: Wound care upon discharge: xeroform, 4x4 and Kerlix wrap to be changed daily. Please call Dr. Swan at [phone] for 2 week follow up for suture and staple removal Care Plan Goals: Dr. Moore will arrange dialysis tomorrow and [place]. Health Concerns: Continue all pre-hospital medications Plan of Treatment: Continue care as given at home prior to hospitalization Assessment: Follow-up with PCP and Renal as scheduled
--- NOTE | 2022-03-15 14:29 | MHC.CM.PN ---
PT WILL DC HOME TODAY WITH RESUMPTION OF [employer] AND [facility] NOTIFIED OF DC VIA [employer] CM CALLED PTS DAUGHTER, LUIS [phone] AND INFORMED HER OF DC SHE IS AWARE TRANSPORTATION WILL BE ARRANGED VIA [employer] S FOR [phone] HOURS
[2022-03-15 16:00] VITALS: BP 157/63; PULSE 70; RESP 18; TEMP 36.8; O2SAT 95
[2022-03-15 16:35] LABS: Glucose, Whole Blood 157 mg/dL (60-115)
== END 2022-03-15 16:57 | disposition home health service (06) | DRG 239 ==
LOC: HO.ED 23:52 → HO.EDOVER 03-06 00:43 → HO.S3 03-06 19:18
PROVIDERS: Internal Medicine; Nurse Practitioner; Physician Assistant; Surgery Vascular Surgery; Admitting Provider Internal Medicine; Emergency Provider Internal Medicine; PCP Internal Medicine; Visit Provider Hospitalist
PROC: 0Y6H0Z2 Detachment at Right Lower Leg, Mid, Open Approach (ICD-10-PCS; CPT 27880; principal; 2022-03-08 15:30)
DX: E11.52 Type 2 diabetes mellitus with diabetic peripheral angiopathy with gangrene (principal); N18.6 End stage renal disease; I70.261 Atherosclerosis of native arteries of extremities with gangrene, right leg; I12.0 Hypertensive chronic kidney disease with stage 5 chronic kidney disease or end stage renal disease; F05 Delirium due to known physiological condition; L97.519 Non-pressure chronic ulcer of other part of right foot with unspecified severity; E78.5 Hyperlipidemia, unspecified; D63.1 Anemia in chronic kidney disease; E11.22 Type 2 diabetes mellitus with diabetic chronic kidney disease; H91.93 Unspecified hearing loss, bilateral; Z20.822 Contact with and (suspected) exposure to COVID-19; Z99.2 Dependence on renal dialysis; Z89.512 Acquired absence of left leg below knee; Z88.8 Allergy status to other drugs, medicaments and biological substances; Z79.4 Long term (current) use of insulin; Z79.82 Long term (current) use of aspirin; Z79.899 Other long term (current) drug therapy
CPT/HCPCS: 36415; 70450; 71045; 73630; 75635; 80048; 80053; 80202; 81001; 82140; 82565; 82947; 83605; 83735; 85025; 85027; 85610; 85652; 85730; 86140; 86850; 86900; 86901; 86920; 87040; 87635; 88307; 88311; 90935; 90999; 93926; 93971; 99285; J2270; J2543; J2795; J3010; J3371; P9016; Q9967

== ENCOUNTER → 2022-03-22 15:32 | Outpatient (BNVA) | payer OTHER, SELFPAY | PROVIDERS: PCP Internal Medicine; Visit Provider Surgery Vascular Surgery | DX: I73.9 Peripheral vascular disease, unspecified (principal) | CPT/HCPCS: 99212 ==

== ENCOUNTER 2022-03-23 15:28 | Emergency (ER) | payer OTHER, SELFPAY ==
[2022-03-23 16:10] VITALS: BP 111/29; BP 152/52; PULSE 60; PULSE 72; RESP 18; TEMP 36.8; O2SAT 94; O2SAT 96; BMI 26.6
--- NOTE | 2022-03-23 16:53 | ED_ITS ---
HPI - Extremity Problem General Chief complaint: Extremity Problem Stated complaint: Bleeding from recent amputation per EMS Time Seen by Provider: 03/23/22 16:03 Source: patient and family Mode of arrival: EMS Limitations: no limitations History of Present Illness HPI Narrative: Patient comes to the emergency room complaining of bleeding from his surgical wound. Patient had a BKA on the right side on 03/08/2022. Patient was discharged on March 15. Patient states that he has been doing well, yesterday he had an appointment with Dr. Swan, half of the keron were removed. Patient complaining of serosanguineous discharge. Denies fever/chills or significant pain. Related Data Home Medications Medication Instructions Recorded Confirmed sevelamer carbonate 800 mg tablet 800 mg PO TID 01/22/20 03/05/22 amlodipine 5 mg tablet 5 mg PO BEDTIME 06/01/21 03/05/22 aspirin 81 mg tablet,delayed 1 tab PO DAILY 06/01/21 03/05/22 release carvedilol 25 mg tablet 1 tab PO BID 06/01/21 03/05/22 ursodiol 300 mg capsule 1 cap PO BID 06/01/21 03/05/22 losartan 100 mg tablet 100 mg PO DAILY 01/23/22 03/05/22 Previous Rx's Medication Instructions Recorded diabetic shoes #1 ea 08/15/20 blood sugar diagnostic (FreeStyle #100 ea 04/04/21 Lite Strips) blood-glucose meter (FreeStyle #1 ea 04/04/21 Lite Meter kit) lancets 28 gauge (FreeStyle #100 ea 04/04/21 Lancets) miscellaneous medical supply #1 ea 04/04/21 (Blood Pressure Cuff) Gel mattress overlay #1 ea 04/17/21 blood pressure monitor #1 ea 05/02/21 vitamin B complex and vitamin C 1 cap PO DAILY 90 days #90 caps 10/28/21 no.20-folic acid 1 mg capsule (Virt-Caps) docusate sodium 100 mg capsule 100 mg PO DAILY #30 caps 11/04/21 (Colace) atorvastatin 40 mg tablet 40 mg PO BEDTIME 90 days #90 tabs 12/28/21 acetaminophen 650 mg 650 mg PO Q8H PRN pain 30 days #90 01/28/22 tablet,extended release (Mapap tabs Arthritis Pain) ergocalciferol (vitamin D2) 1,250 1,250 mcg PO QWEEK 30 days #5 caps 01/30/22 mcg (50,000 unit) capsule (Vitamin D2) bumetanide 1 mg tablet 1 mg PO DAILY #30 tabs 02/27/22 fenofibrate nanocrystallized 145 145 mg PO DAILY #30 tabs 02/27/22 mg tablet ferrous sulfate 325 mg (65 mg 325 mg PO TID 30 days #90 tabs 02/27/22 iron) tablet oxycodone 5 mg tablet 5 mg PO Q4H PRN Pain, Moderate 03/15/22 (Pain Scale 4-6 #30 tabs insulin glargine U-300 conc 300 10 unit (0.0333 mL) subcut BID #6 03/20/22 unit/mL (3 mL) subcutaneous pen mL Allergies Allergy/AdvReac Type Severity Reaction Status Date / Time lisinopril Allergy Intermediate hyperkalemi Verified 03/22/22 15:35 a lidocaine [From LIDOPRIL] Allergy Mild COUGH Verified 03/22/22 15:35 prilocaine [From LIDOPRIL] Allergy Mild COUGH Verified 03/22/22 15:35 canagliflozin [Invokana] AdvReac Mild back pain Verified 03/22/22 15:35 Hydralazine-HCTZ Allergy Unknown Unknown Uncoded 01/11/22 10:25 Review of Systems Review of Systems: Constitutional : No Weight loss, No Fever, No Chills, No Night Sweats, No Fatigue, No Malaise ENT/Mouth : No Hearing loss, No Ear Pain, No Nasal Congestion, No Sinus Pain, No Hoarseness, No sore throat, No Rhinorrhea, No Swallowing Difficulty Eyes: No Eye Pain, No Swelling, No Redness, No Foreign Body, No Discharge, No Vision Changes Cardiovascular : No Chest Pain, No SOB, No Dyspnea on Exertion, No Orthopnea, No Edema, No Palpitations Respiratory : No Cough, No Sputum, No Wheezing, No Smoke Exposure, No Dyspnea Gastrointestinal : No Nausea, No Vomiting, No Diarrhea, No Constipation, No abdominal Pain, No Hematochezia, No Melena Genitourinary : no irregular bleeding, No Dysuria, No Urinary Frequency, No Hematuria, No Urinary Incontinence, No Urgency, No Flank Pain, No Urinary Flow Changes, No Hesitancy Musculoskeletal : No joint pain, No Myalgias, No Joint Swelling Skin : Complaining of bleeding from surgical wound after staple removal Neuro : No Weakness, No Numbness, No Paresthesias, No Loss of Consciousness, No Dizziness, No Headache Psych : No Anxiety/Panic, No Depression, No SI/HI/AH/VH, No Social Issues, Heme/Lymph: No Bruising, No Bleeding,No Lymphadenopathy Endocrine : No Polyuria, No Polydipsia, No Temperature Intolerance [facility] Past Medical History Medical History Anemia in chronic kidney disease Below-knee amputation of left lower extremity Diabetes Diabetes mellitus, with long-term current use of insulin Diarrhea End stage renal disease End-stage renal disease on hemodialysis Fever of unknown origin High cholesterol History of leg amputation Hypertension Microalbuminuria Mixed hyperlipidemia PAD (peripheral artery disease) Preoperative cardiovascular examination Surgical History History of eye surgery History of laminectomy History of surgery History of surgery on arm S/P CABG x 4 S/P unilateral BKA (below knee amputation) Family History Family History Father Myocardial infarction Mother No problems noted. Social History Social History Household Members: Children Housing: House Do you presently have visiting nurse or other home services: Yes (nursing aid) Alcohol intake: never Patient Tobacco Use Status: Never used Tobacco e-Cigarette/Vaping Use: Never Used Second Hand Smoke Exposure: No Advance Directives: Yes Advance Directives on File: Yes Advance Directives Date on File: 06/15/21 service: No Current occupational status: retired and disabled Cognitive needs: Yes Hearing needs: No Vision needs: No Physical Exam Vital Signs: Vital Signs: Last Vital Signs Temp 98.2 F 03/23/22 16:10 Pulse 60 03/23/22 16:10 Resp 18 03/23/22 16:10 BP 111/29 L 03/23/22 16:10 Pulse Ox 94 03/23/22 16:10 O2 Del Method 03/23/22 16:10 BMI result Body Mass Index 26.6 Const: Other: Appearance: Alert. Oriented X3. No acute distress. Eyes: Pupils equal, round and reactive to light. ENT: Pharynx normal. Neck: Normal inspection. Neck supple. No lymph nodes noted. No crepitus CVS: Normal heart rate and rhythm. Pulses normal. Normal S1 and S2 Respiratory: No respiratory distress. Breath sounds normal. No Wheezing. No rales Abdomen: Soft and nontender. No rigidity. No distention. Skin: Skin warm and dry. Normal skin color. Normal skin turgor. Extremities: Chronic BKA on the left, new BKA on the right, half of the wound has keron which were removed yesterday, dehiscence, no bleeding, no serosanguineous discharge, wound looks clean, no signs of infection., Neuro: Oriented X 3. No motor deficit. No sensory deficit. Moving all extremities. No slurred speech. CN 2 through 12 grossly intact Psych: calm, cooperative, normal affect Medical Decision Making Medical Decision Making MDM Narrative: -wound looks clean, there is no discharge present or active bleeding. -patient already has wound care at home. -I reviewed Dr Swan's note from yesterday , patient will start alginate dressings 3 times a week and has a follow-up in 2 weeks -for patient and his family, wound care has been set up for him. -no further interventions at this time. Cover with dry gauze Discharge Plan Discharge Clinical Impression: Bleeding from wound Patient Disposition: Home, Self-Care Instructions: Staple Care (ED) Additional Instructions: Please follow-up with your primary care physician tomorrow. If you have any worsening or new symptoms, please return to the emergency room or call 911 Prescriptions: No Action (DME) diabetic shoes 9 See Rx Instructions .Route .MEDSUPPLY Qty: 1 0RF Rx Instructions: As directed (DME) Gel mattress overlay Misc See Rx Instructions .Route Qty: 1 0RF Rx Instructions: As directed Virt-Caps 1 mg capsule 1 cap PO DAILY 90 Days Qty: 90 1RF docusate sodium [Colace] 100 mg capsule 100 mg PO DAILY Qty: 30 0RF atorvastatin 40 mg tablet 40 mg PO BEDTIME 90 Days Qty: 90 1RF acetaminophen [Mapap Arthritis Pain] 650 mg tablet extended release 650 mg PO Q8H PRN (Reason: pain) 30 Days Qty: 90 1RF ergocalciferol (vitamin D2) [Vitamin D2] 1,250 mcg (50,000 unit) capsule 1,250 mcg PO QWEEK 30 Days Qty: 5 0RF bumetanide 1 mg tablet 1 mg PO DAILY Qty: 30 6RF fenofibrate nanocrystallized 145 mg tablet 145 mg PO DAILY Qty: 30 6RF ferrous sulfate 325 mg (65 mg iron) tablet 325 mg PO TID 30 Days Qty: 90 6RF insulin glargine U-300 conc 300 unit/mL (3 mL) insulin pen 10 unit subcut BID Qty: 6 0RF carvedilol 25 mg tablet 1 tab PO BID aspirin 81 mg tablet,delayed release (DR/EC) 1 tab PO DAILY ursodiol 300 mg capsule 1 cap PO BID amlodipine 5 mg tablet 5 mg PO BEDTIME oxycodone 5 mg Tablet 5 mg PO Q4H PRN (Reason: Pain, Moderate (Pain Scale 4-6) Qty: 30 0RF Rx Instructions: Partial Fill upon patient request. (DME) Blood Pressure Cuff Misc See Rx Instructions .Route Qty: 1 0RF Rx Instructions: As directed (DME) blood-glucose meter [FreeStyle Lite Meter] Kit See Rx Instructions .Route Qty: 1 0RF Rx Instructions: As directed (DME) FreeStyle Lite Strips Strip See Rx Instructions .Route Qty: 100 11RF Rx Instructions: Use 1 test strip TID (DME) lancets [FreeStyle Lancets] 28 gauge misc See Rx Instructions .Route Qty: 100 10RF Rx Instructions: Use 1 lancet once a day sevelamer carbonate 800 mg tablet 800 mg PO TID (DME) blood pressure monitor Kit See Rx Instructions .Route Qty: 1 0RF Rx Instructions: As directed losartan 100 mg tablet 100 mg PO DAILY
--- NOTE | 2022-03-23 16:56 | PC.NURSE ---
Dressing applied per MD instructions community mental health social worker asked to obtain ambulance ride for patient
--- NOTE | 2022-03-23 17:10 | PC.NURSE ---
Son in lawa translated discharge papers for patient no questions per patient or son in law awaitng ambulance
--- NOTE | 2022-03-23 18:39 | PC.NURSE ---
Patient resting comfortably awaiting transport will CTM
--- NOTE | 2022-03-23 18:56 | PC.NURSE ---
Redness noted to coccyx
--- NOTE | 2022-03-23 19:03 | PC.NURSE ---
Old healed coccyx wound non blanchable meplex to be placed after bedpan usage and before discharge oncoming [facility] aware.
--- NOTE | 2022-03-23 19:42 | PC.NURSE ---
assumed care of pt no apparent distress, pt on the phone with family member call cantu placed within reach
--- NOTE | 2022-03-23 19:51 | PC.NURSE ---
mepalex bandage applied after affected area above coccyx cleaned/dried
[2022-03-23 20:46] VITALS: BP 131/44; PULSE 71; RESP 22; O2SAT 92
--- NOTE | 2022-03-23 20:54 | PC.NURSE ---
d/c instructions and additional paperwork given to [facility], pt to be transported home to son, no apparent distress, no sob, pt able to speak in full sentences, pt transported via stretcher with [facility]
== END 2022-03-23 20:55 | disposition home or self-care (01) ==
PROVIDERS: Emergency Provider Emergency Medicine; PCP Internal Medicine
DX: L76.22 Postprocedural hemorrhage of skin and subcutaneous tissue following other procedure (principal); Z89.9 Acquired absence of limb, unspecified; I12.0 Hypertensive chronic kidney disease with stage 5 chronic kidney disease or end stage renal disease; E11.22 Type 2 diabetes mellitus with diabetic chronic kidney disease; N18.6 End stage renal disease; Z99.2 Dependence on renal dialysis
CPT/HCPCS: 99283; 99284

== ENCOUNTER 2022-03-30 15:11 | Inpatient (IN) | payer OTHER, SELFPAY ==
--- NOTE | ~2022-03-30 | XR_ITS ---
EXAMINATION: XR CHEST CLINICAL INFORMATION: Abdominal pain COMPARISON: 03/12/2022 TECHNIQUE: Frontal view of the chest was obtained. FINDINGS: Median sternotomy wires appear intact. Surgical clips overlie the mediastinum. Cardiac leads overlie the chest. Chronic elevation of the right hemidiaphragm. Central vascular prominence without overt edema. No dense consolidation. No pleural effusion. No pneumothorax. Cardiomediastinal silhouette is unchanged. XR/XR chest 1V IMPRESSION: Central vascular prominence without overt edema. Chronic elevation of the right hemidiaphragm.
--- NOTE | ~2022-03-30 | US_ITS ---
EXAMINATION: US ABDOMEN COMPLETE CLINICAL INFORMATION: Rule out CBD stone. Acute cholecystitis. COMPARISON: CT abdomen pelvis March 30, 2022. TECHNIQUE: Real-time imaging of the abdominal viscera. Today's examination is mildly limited secondary to overlying bowel gas. FINDINGS: PANCREAS: Visualized portions of pancreas are normal in appearance. ABDOMINAL AORTA: Visualized portion of the proximal abdominal aorta are normal in caliber. The mid and distal abdominal aorta are not clearly visualized due to overlying bowel gas. INFERIOR VENA CAVA: Visualized portions are normal. LIVER: Normal. The liver is normal in size. The liver contour is normal. Parenchymal echogenicity is normal. No focal hepatic lesion. There is no intrahepatic biliary duct dilatation seen. GALLBLADDER: The gallbladder is physiologically distended. Echogenic bile and gallstones are noted. There is mild gallbladder wall thickening present. No definitive pericholecystic fluid. Positive sonographic Munoz's sign. COMMON BILE DUCT: Normal in caliber measuring 0.3 cm in diameter. RIGHT KIDNEY: The kidney measures 7.5 cm in maximum dimension. Extensive calcifications are noted throughout the right kidney which are noted to be primarily vascular recent cross-sectional imaging. There is no hydronephrosis. A few tiny cysts appreciated within the right kidney. LEFT KIDNEY: The kidney measures 7.2 cm in maximum dimension. Extensive calcifications are noted throughout the left kidney which were noted to be primarily vascular on recent cross-sectional imaging. There is no hydronephrosis. SPLEEN: Normal. The spleen measures 10.2 cm in maximum dimension. A tiny splenule is noted. FREE FLUID: Trace perisplenic ascites. OTHER: A small right and tiny left-sided pleural effusion are noted. US/US abdomen complete IMPRESSION: 1. Cholelithiasis. There is mild gallbladder wall thickening and a positive sonographic Munoz's sign. Findings are equivocal for acute cholecystitis. Further evaluation can be obtained with nuclear medicine imaging as clinically indicated. 2. Extensive vascular calcifications are noted throughout both kidneys which were noted to be primarily vascular on recent cross-sectional imaging. There is no hydronephrosis of either kidney. 3. Trace perisplenic ascites. 4. Small right and tiny left-sided pleural effusions.
--- NOTE | ~2022-03-30 | CT_ITS ---
EXAMINATION: CT ABDOMEN AND PELVIS WITHOUT CONTRAST CLINICAL INFORMATION: Abdominal pain COMPARISON: CT abdomen with lower extremity runoff 03/05/2022 TECHNIQUE: Multidetector volumetric imaging was performed from the superior aspect of the liver through the pubic symphysis. Sagittal and coronal reformatted images were obtained on the technologist's workstation. This CT examination was performed using dose optimization techniques as appropriate, variously including the following: *Automated exposure control *Adjustment of mA and/or kV according to patient size (this includes techniques or standardized protocols for targeted exams where dose is matched to indication/reason for exam; i.e. extremities or head) *Use of iterative reconstruction technique DLP: 467 mGy-cm FINDINGS: LUNG BASES: Small right and trace left pleural effusions. Mild passive right basilar atelectasis. Status post median sternotomy. Coronary artery vascular calcifications noted. LIVER, GALLBLADDER, AND BILIARY TREE: The liver is normal in size, shape, and attenuation. No focal hepatic lesion or biliary ductal dilatation is present. Gallbladder is distended and contains small amount of sludge and calcified stones. There is a approximately 1.2 cm stone in the region of the gallbladder neck. There is mild hazy pericholecystic inflammatory change. Findings raise concern for acute cholecystitis. PANCREAS: Unremarkable. SPLEEN: Normal splenic size. There is a new somewhat linear wedge-shaped area of geographic hypoattenuation in the lateral upper spleen, not definitely seen previously which could represent a interval splenic infarct. ADRENAL GLANDS: Unremarkable. KIDNEYS AND URETERS: Bilateral renal atrophy with diminutive size. No hydronephrosis. No renal calculi or appreciable renal lesion. No perinephric fluid collection. BLADDER: Unremarkable. GASTROINTESTINAL TRACT: Small to moderate amount of formed stool throughout colon. No dilated bowel loops or bowel wall thickening. Appendix is normal. No pneumatosis or free air. Small amount of free pelvic fluid/pelvic ascites, new since prior. ABDOMINAL WALL: Small fat-containing left inguinal hernia. Mild body wall edema. Mild presacral edema. LYMPH NODES: No lymphadenopathy. VASCULAR: Extensive diffuse Monckeberg type atherosclerotic vascular calcifications. PELVIC VISCERA: Unremarkable. OSSEOUS STRUCTURES: No acute fracture or suspicious osseous lesion. Evidence of congenital spinal stenosis. Mild diffuse multilevel spondylosis of the visualized thoracolumbar spine. CT/CT abdomen pelvis wo IV con IMPRESSION: 1. Distended gallbladder containing sludge and stones with mild pericholecystic inflammatory change and a 1.2 cm stone in the region of the gallbladder neck. Findings raise concern for acute cholecystitis. Correlate clinically. 2. Small amount of free pelvic fluid/pelvic ascites, new since prior. 3. Small right and trace left pleural effusions. 4. New wedge-shaped area of hypoattenuation in the lateral upper spleen, suspicious for splenic infarct. 5. Additional ancillary findings, as described.
--- NOTE | ~2022-03-30 | CT_ITS ---
EXAMINATION: CT ABDOMEN AND PELVIS WITHOUT CONTRAST CLINICAL INFORMATION: Rule out abscess. COMPARISON: 04/06/2022 TECHNIQUE: Multidetector volumetric imaging was performed from the superior aspect of the liver through the pubic symphysis. Sagittal and coronal reformatted images were obtained on the technologist's workstation. This CT examination was performed using dose optimization techniques as appropriate, variously including the following: *Automated exposure control *Adjustment of mA and/or kV according to patient size (this includes techniques or standardized protocols for targeted exams where dose is matched to indication/reason for exam; i.e. extremities or head) *Use of iterative reconstruction technique DLP: 708 mGy-cm FINDINGS: LUNG BASES: Small right pleural effusion appears complex with pleural thickening. Partial collapse of the right lower lobe. Dependent atelectasis in the left lung. Cardiomegaly. Calcific atherosclerosis in the coronary arteries. Prior CABG. LIVER, GALLBLADDER, AND BILIARY TREE: The liver is normal in size, shape, and attenuation. No focal hepatic lesion or biliary ductal dilatation is present. Cholecystostomy tube tip terminates within the gallbladder. Gallstones and debris are again seen within the gallbladder. Mild gallbladder wall thickening and surrounding fat stranding. No surrounding fluid collections. PANCREAS: Unremarkable. SPLEEN: As seen on the prior studies, there is a wedge-shaped geographic region of hypoattenuation in the lateral aspect of the spleen, unchanged from prior. ADRENAL GLANDS: Unremarkable. KIDNEYS AND URETERS: The kidneys are normal in size, shape, and attenuation. No hydronephrosis, hydroureter, or calculi seen. No perinephric stranding. BLADDER: Unremarkable. GASTROINTESTINAL TRACT: Stomach, small bowel, and colon are normal in caliber. No bowel wall thickening or surrounding inflammatory changes. Appendix is normal. No intraperitoneal free fluid or free air. Moderate volume stool throughout the colon. Mild colonic diverticulosis. No acute diverticulitis. ABDOMINAL WALL: Small fat-containing left inguinal hernia. No bowel involvement. LYMPH NODES: Normal. VASCULAR: Marked calcific atherosclerosis is evident in the abdominal aorta, iliac arteries, femoral arteries, and visceral branches. No aneurysmal dilatation. PELVIC VISCERA: Dystrophic central calcifications. Prostate gland is within normal limits in size. OSSEOUS STRUCTURES: Mild to moderate multilevel degenerative spondylosis throughout the thoracolumbar spine. 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 CT/CT abdomen pelvis wo IV con IMPRESSION: 1. No abscess identified in the abdomen and pelvis. 2. The tube remains within the gallbladder which is decompressed. Minimal surrounding fat stranding. Cholelithiasis is again noted. 3. Unchanged. Wedge-shaped region of hypoattenuation in the spleen which may correspond to a splenic infarct. 4. Small complex right pleural effusion with partial collapse of the right lower lobe. Fleischner guidelines were followed.
--- NOTE | ~2022-03-30 | CT_ITS ---
EXAMINATION: CT-GUIDED CHOLECYSTOSTOMY AND DRAINAGE CATHETER PLACEMENT CLINICAL INFORMATION: Positive Munoz's spine right upper quadrant. COMPARISON: CT abdomen and pelvis 03/30/2022 and ultrasound abdomen 04/01/2022 TECHNIQUE: Following explaining CT fluoroscopy-guided right cholecystotomy drainage catheter placement, procedure, benefits and risk, a written consent was obtained. Patient was placed supine with the right side elevated and preliminary CT imaging was obtained. Markers were placed along the right anterolateral upper abdomen and repeat CT imaging was obtained. An optimal marker was selected and marked on the skin. The marked site was cleaned and draped in the usual sterile manner with 2% chlorhexidine solution. 1% lidocaine was injected at the puncture site. IV sedation administered by nursing. Through a small skin incision, a long Yueh 5 Wolof catheter was advanced from the skin into the gallbladder fossa under CT fluoroscopy. After observing bilious drainage, the stylet was withdrawn and a 0.035 J-wire was advanced through the Yueh sheath. The Yueh sheath was removed and 10.2 Wolof APD catheter with stiff nose advanced over the guidewire. The stiffener was loosened as the catheter was advanced over the guidewire once in the liver. The guidewire and the stiffener removed and fluoroscopy-guided CT imaging was performed confirming catheter position within the gallbladder. The catheter was pulled and a pigtail formed. The catheter was anchored to the skin with 3-0 nonabsorbable nylon sutures followed by sterile dressing. Catheter was connected to a suction bulb via the connecting cannula. The patient tolerated procedure extremely well. FINDINGS: On preliminary CT imaging, there is distended gallbladder with dependent gallstones and an impacted gallstone of the neck of the bladder. CT fluoroscopy-guided placement of a 10.2 Wolof APD catheter. The pigtail of the catheter lies entirely within the gallbladder. Approximately 20 to 30 mL of bilious drainage was seen within the valve on the table. CT/CT drain liver IMPRESSION: Successful CT fluoroscopy-guided percutaneous cholecystostomy and drainage catheter placement.
--- NOTE | ~2022-03-30 | CT_ITS ---
EXAMINATION: CT ABDOMEN WITHOUT CONTRAST CLINICAL INFORMATION: Follow-up on cholecystostomy tube placement COMPARISON: Drain placement exam on 04/02/2022 TECHNIQUE: Contiguous axial thin section helical images of the abdomen were performed without contrast. The data set was reformatted in the coronal and sagittal planes and reviewed on an independent workstation. This CT examination was performed using dose optimization techniques as appropriate, variously including the following: *Automated exposure control *Adjustment of mA and/or kV according to patient size (this includes techniques or standardized protocols for targeted exams where dose is matched to indication/reason for exam; i.e. extremities or head) *Use of iterative reconstruction technique DLP: 515 mGy-cm FINDINGS: LUNG BASES: Small right pleural effusion with adjacent atelectasis. LIVER, GALLBLADDER, AND BILIARY TREE: The liver is normal in size, shape, and attenuation. No focal hepatic lesion or biliary ductal dilatation is present. The gallbladder is decompressed. There is a drainage catheter within the gallbladder. There is residual gallbladder wall thickening, mild inflammatory changes, and gallstones within the gallbladder. PANCREAS: Unremarkable. SPLEEN: Unremarkable. ADRENAL GLANDS: Unremarkable. KIDNEYS AND URETERS: The kidneys are normal in size, shape, and attenuation. No hydronephrosis, hydroureter, or calculi seen. No perinephric stranding. BLADDER: Unremarkable. GASTROINTESTINAL TRACT: The small and large bowel are unremarkable. The appendix is unremarkable. ABDOMINAL WALL: No significant hernia is appreciated. LYMPH NODES: Normal. VASCULAR: The abdominal aorta is normal in caliber. There is extensive atherosclerotic calcification throughout the abdomen and lower chest including the coronary arteries. OSSEOUS STRUCTURES: Unremarkable. CT/CT abdomen wo IV con IMPRESSION: 1. Drainage catheter within the gallbladder. The gallbladder is decompressed. There is residual gallbladder wall thickening, mild inflammatory changes, and gallstones within the gallbladder. 2. Small right pleural effusion with adjacent atelectasis. Fleischner guidelines were followed.
--- NOTE | ~2022-03-30 | US_ITS ---
EXAMINATION: ULTRASOUND EXTREMITY NONVASCULAR. CLINICAL INFORMATION: Assess AV fistula site for abscess. COMPARISON: None. TECHNIQUE: Ultrasound and Doppler imaging of the left upper arm fistula between the basilic vein and brachial artery was performed. FINDINGS: The AV fistula appears patent at the arterial Houston-Sergio junction and the Houston-Sergio venous junction. The graft is large and has small echogenic plaques along the inner wall of the graft. There is minimal color flow seen extending outside the graft but limited and likely pseudoaneurysm or recent dialysis. There is no evidence of abscess or fluid collection. US/US extremity nonvascular perkins IMPRESSION: 1. Patent graft. 2. No evidence of abscess or fluid. 3. There is minimal blood flow around the graft, likely a small pseudoaneurysm or from recent AV dialysis.
[2022-03-30 15:23] VITALS: BP 162/44; PULSE 67; RESP 18; TEMP 36.7; O2SAT 93; BMI 23.8
[2022-03-30 16:00] VITALS: PULSE 66; RESP 16; O2SAT 94
--- NOTE | 2022-03-30 16:22 | ED_ITS ---
HPI - Abdominal Pain General Chief Complaint: Abdominal Pain Stated Complaint: R upper abd pain per EMS Time Seen by Provider: 03/30/22 16:20 Source: patient, family and EMS Mode of arrival: EMS Limitations: language barrier History of Present Illness HPI narrative: 76-year-old male with past medical history of end-stage renal disease on dialysis Saturday, gangrene, bilateral [id number] amputat ions, insulin-dependent diabetes, chronic anemia, hypertension presents for 6/10 abdominal pain and that his dialysis filter with yellow instead of clear today. MD elicited complaint: abdominal pain Onset (ago): week(s) Pain Consistency: constant Location: diffuse Severity: moderate Pain scale (0-10): 6 Quality: aching Radiation: RUQ Migration to: no migration Relieving factors: nothing Associated symptoms: denies other symptoms Related Data Home Medications Medication Instructions Recorded Confirmed sevelamer carbonate 800 mg tablet 1,600 mg PO TIDWM 01/22/20 03/30/22 amlodipine 5 mg tablet 5 mg PO BEDTIME 06/01/21 03/30/22 aspirin 81 mg tablet,delayed 1 tab PO DAILY 06/01/21 03/30/22 release carvedilol 25 mg tablet 1 tab PO BID 06/01/21 03/30/22 ursodiol 300 mg capsule 1 cap PO BID 06/01/21 03/30/22 losartan 100 mg tablet 100 mg PO DAILY 01/23/22 03/30/22 ergocalciferol (vitamin D2) 1,250 1,250 mcg PO FR@1000 03/30/22 03/30/22 mcg (50,000 unit) capsule (Vitamin D2) tramadol 50 mg tablet 50 mg PO DAILY PRN Pain 03/30/22 03/30/22 vitamin B complex and vitamin C 1 cap PO DAILY 03/30/22 03/30/22 no.20-folic acid 1 mg capsule (Virt-Caps) Previous Rx's Medication Instructions Recorded diabetic shoes #1 ea 08/15/20 blood-glucose meter (FreeStyle #1 ea 04/04/21 Lite Meter kit) lancets 28 gauge (FreeStyle #100 ea 04/04/21 Lancets) miscellaneous medical supply #1 ea 04/04/21 (Blood Pressure Cuff) Gel mattress overlay #1 ea 04/17/21 blood pressure monitor #1 ea 05/02/21 atorvastatin 40 mg tablet 40 mg PO BEDTIME 90 days #90 tabs 12/28/21 acetaminophen 650 mg 650 mg PO Q8H PRN pain 30 days #90 01/28/22 tablet,extended release (Mapap tabs Arthritis Pain) bumetanide 1 mg tablet 1 mg PO DAILY #30 tabs 02/27/22 fenofibrate nanocrystallized 145 145 mg PO DAILY #30 tabs 02/27/22 mg tablet ferrous sulfate 325 mg (65 mg 325 mg PO TID 30 days #90 tabs 02/27/22 iron) tablet insulin glargine U-300 conc 300 10 unit (0.0333 mL) subcut BID #6 03/20/22 unit/mL (3 mL) subcutaneous pen mL blood sugar diagnostic (FreeStyle #100 ea 03/30/22 Lite Strips) Allergies Allergy/AdvReac Type Severity Reaction Status Date / Time lisinopril Allergy Intermediate hyperkalemi Verified 03/22/22 15:35 a lidocaine [From LIDOPRIL] Allergy Mild COUGH Verified 03/22/22 15:35 prilocaine [From LIDOPRIL] Allergy Mild COUGH Verified 03/22/22 15:35 canagliflozin [Invokana] AdvReac Mild back pain Verified 03/22/22 15:35 Hydralazine-HCTZ Allergy Unknown Unknown Uncoded 01/11/22 10:25 Review of Systems Review of Systems Constitutional: No Fever, No Chills Cardiovascular: No Chest Pain, No SOB Respiratory: No Cough, No Dyspnea Gastrointestinal: No Nausea, No Vomiting, No Diarrhea, positive abdominal Pain Genitourinary: No Dysuria, No Hematuria Musculoskeletal: No joint pain, No Myalgias, No Joint Swelling Skin: No Skin lacerations, No rash Neuro: No Weakness, No Numbness, No Paresthesias, No Dizziness, No Headache Yes all other systems are reviewed and are negative PMFSH Past Medical History Attestation statement: The following information was validated with the patient. Source: old records reviewed Medical History Anemia in chronic kidney disease Below-knee amputation of left lower extremity Diabetes Diabetes mellitus, with long-term current use of insulin Diarrhea End stage renal disease End-stage renal disease on hemodialysis Fever of unknown origin High cholesterol History of leg amputation Hypertension Microalbuminuria Mixed hyperlipidemia PAD (peripheral artery disease) Preoperative cardiovascular examination Surgical History History of eye surgery History of laminectomy History of surgery History of surgery on arm S/P CABG x 4 S/P unilateral BKA (below knee amputation) Family History Family History Father Myocardial infarction Mother No problems noted. Social History Social History Household Members: Children Housing: House Do you presently have visiting nurse or other home services: Yes (nursing aid) Alcohol intake: unknown Patient Tobacco Use Status: Never used Tobacco Smoked in Last 30 Days: No e-Cigarette/Vaping Use: Never Used Second Hand Smoke Exposure: No Use of substances other than those prescribed or required for medical reasons: Unknown Advance Directives: Yes Advance Directives on File: Yes Advance Directives Date on File: 06/15/21 service: No Current occupational status: retired and disabled Cognitive needs: Yes Hearing needs: No Vision needs: No Physical Exam ED Vital Signs: Vital Signs - 24 hr 03/30/22 15:23 03/30/22 16:00 03/30/22 19:01 Temperature 98.1 F 98.4 F Pulse Rate 67 66 66 Respiratory Rate 18 16 18 Blood Pressure 162/44 H 148/48 H Pulse Oximetry 93 94 94 Oxygen Delivery Method Room Air Room Air Room Air BMI result Body Mass Index 23.8 Appearance: Alert. Oriented X3. Mild distress. Eyes: Pupils equal, round and reactive to light. ENT: Pharynx normal. Neck: Normal inspection. Neck supple. CVS: Normal heart rate and rhythm. Pulses normal. Respiratory: No respiratory distress. Breath sounds normal. Abdomen: Soft and diffusely tender, positive Munoz's. No rigidity or distention. Skin: Decubitus ulcer noted. Extremities: Bilateral BKA. Neuro: No motor deficit. No sensory deficit. Cranial nerves 2-12 intact. Course Course Course Narrative: 76-year-old male presents via EMS from dialysis for multiple concerns patient has had abdominal pain for several weeks, to the right upper quadrant. Not report any fevers or chills, but feels tired. Report from dialysis stated that his filter after his dialysis was yellow, and they were concerned about abnormal liver enzymes. 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 17:38 discussion with daughter, daughter states that patient has been feeling ill for the past few weeks. She is concerned about liver problems. I did update this family member that his labs were pending as well as is CT scan. 18:12 CT scan abdomen pelvis indicates cholecystitis, cholelithiasis as well splenic infarct. Splenic infarct could be possibly due to bacteremia versus endocarditis, will order lactic, cultures EKG, and Zosyn. I did discuss this case with attending Dr. Up. Will contact surgery for consult once labs have returned. 18:[address] Sheikh regarding CT scan findings. Labs are pending. Dr. Sheikh reviewed CT scan and feels that patient requires medical admission, will round on the patient in the morning. Patient has an elevated white count of 0.4, H&H of 8.7/26.9 which is consistent with his prior values. Chemistries are pending. 19:20 BUN 20, creatinine 1.88, bili 2.3, AST 198, ALT 113, alk-phos 285, all indicative of cholecystitis as demonstrated on CT, troponin 49.8 which is an improvement from his prior value, influenza COVID RSV are negative. Lactic is 0.8, patient is not septic 19:30 discussion with hospitalist, plan of care is to admit for cholecystitis, and splenic infarct. 20:[address] Swan, patient does not require anticoagulation at this time. Consultations Consultation #1: Kori Consultation #2: Sosa Consultation #3: Ochoa Medical Decision Making Differential Diagnosis Differential Diagnoses: The differential diagnosis associated with the presentation includes Acute abdomen, cholecystitis, cholelithiasis, ACS Admission/Observation Consideration of admission/observation: Escalation of care including admission/observation considered Patient will require admission Consult Healthcare Provider Management of the patient was discussed with: Hospitalist and Print Shop Manager Lab Data MDM Lab Attestation statement: I reviewed the patient's lab results. 03/30/22 17:29 03/30/22 16:43 Labs: Lab Results 0103/30/22 03/30/22 Range/Units 16:43 17:29 18:38 WBC 11.4 H (4.8-10.8) X10*3/uL RBC 2.77 L (4.60-5.80) X10*6/uL Hgb 8.7 L (14.0-18.0) g/dl Hct 26.9 L (42.0-52.0) % MCV 97.1 (80.0-98.0) fL MCH 31.4 (27.0-33.0) pg MCHC 32.3 (31.0-36.0) g/dl RDW 16.9 H (11.0-16.0) % Plt Count 296 (160-400) X10*3/uL MPV 11.2 (9.4-12.4) fL Immature Gran % (Auto) 1.1 H (0.0-0.4) % Neut % (Auto) 88.3 H (45-73) % Lymph % (Auto) 4.9 L (20-40) % [place] % (Auto) 3.3 (2-11) % Eos % (Auto) 2.0 (0-4) % Baso % (Auto) 0.4 (0-2) % Lymph # (Auto) 0.6 L (1.2-4.9) X10*3/uL [place] # (Auto) 0.4 (0.1-1.2) X10*3/uL Eos # (Auto) 0.2 (0.0-0.4) X10*3/uL Baso # (Auto) 0.0 (0.0-0.2) X10*3/uL Abs Immat Gran (auto) 0.12 H (0.00-0.03) X10*3/uL Absolute Neuts (auto) 10.1 H (2.0-8.3) x10*3/uL Absolute Nucleated RBC 0.000 (0.0-0.012) X10*3/uL Nucleated RBC % (auto) 0.0 (0.0-0.2) /100WBC PT (10.0-13.1) SEC INR (0.9-1.1) APTT (26.0-36.4) SEC Sodium 136 (135-145) mmol/L Potassium 3.7 (3.3-5.1) mmol/L Chloride 98 (96-108) mmol/L Carbon Dioxide 27 (22-29) mmol/L Anion Gap 15 (12-20) BUN 20 H (9-16) mg/dL Creatinine 1.88 H (0.5-1.4) mg/dL Estim Creat Clear Calc 29.5 Estimated GFR 35 Random Glucose 142 H (60-115) mg/dL Lactic Acid (0.5-2.0) mmol/L Calcium 8.4 (8.4-10.2) mg/dL Total Bilirubin 2.3 H (0.0-1.0) mg/dL Direct Bilirubin 1.7 H (0.0-0.5) mg/dL AST 198 H (5-37) U/L ALT 113 H (0-40) U/L Alkaline Phosphatase 285 H (39-117) U/L Troponin I High Sens (<3.5-35.0) ng/L Total Protein 6.0 L (6.5-8.0) g/dL Albumin 2.3 L (3.5-5.0) g/dL Lipase 39 (8-78) U/L Influenza Type A (PCR) NEGATIVE (Negative) Influenza Type B (PCR) NEGATIVE (Negative) RSV RNA Qual (PCR) NEGATIVE (Negative) SARS-CoV-2 RNA (RT-PCR) NEGATIVE (Negative) 03/30/22 03/30/22 03/30/22 Range/Units 18:38 18:38 18:38 WBC (4.8-10.8) X10*3/uL RBC (4.60-5.80) X10*6/uL Hgb (14.0-18.0) g/dl Hct (42.0-52.0) % MCV (80.0-98.0) fL MCH (27.0-33.0) pg MCHC (31.0-36.0) g/dl RDW (11.0-16.0) % Plt Count (160-400) X10*3/uL MPV (9.4-12.4) fL Immature Gran % (Auto) (0.0-0.4) % Neut % (Auto) (45-73) % Lymph % (Auto) (20-40) % [place] % (Auto) (2-11) % Eos % (Auto) (0-4) % Baso % (Auto) (0-2) % Lymph # (Auto) (1.2-4.9) X10*3/uL [place] # (Auto) (0.1-1.2) X10*3/uL Eos # (Auto) (0.0-0.4) X10*3/uL Baso # (Auto) (0.0-0.2) X10*3/uL Abs Immat Gran (auto) (0.00-0.03) X10*3/uL Absolute Neuts (auto) (2.0-8.3) x10*3/uL Absolute Nucleated RBC (0.0-0.012) X10*3/uL Nucleated RBC % (auto) (0.0-0.2) /100WBC PT 18.9 H (10.0-13.1) SEC INR 1.6 H (0.9-1.1) APTT 32.3 (26.0-36.4) SEC Sodium (135-145) mmol/L Potassium (3.3-5.1) mmol/L Chloride (96-108) mmol/L Carbon Dioxide (22-29) mmol/L Anion Gap (12-20) BUN (9-16) mg/dL Creatinine (0.5-1.4) mg/dL Estim Creat Clear Calc Estimated GFR Random Glucose (60-115) mg/dL Lactic Acid 0.8 (0.5-2.0) mmol/L Calcium (8.4-10.2) mg/dL Total Bilirubin (0.0-1.0) mg/dL Direct Bilirubin (0.0-0.5) mg/dL AST (5-37) U/L ALT (0-40) U/L Alkaline Phosphatase (39-117) U/L Troponin I High Sens 49.8 H (<3.5-35.0) ng/L Total Protein (6.5-8.0) g/dL Albumin (3.5-5.0) g/dL Lipase (8-78) U/L Influenza Type A (PCR) (Negative) Influenza Type B (PCR) (Negative) RSV RNA Qual (PCR) (Negative) SARS-CoV-2 RNA (RT-PCR) (Negative) Independent Interpretation I performed an independent interpretation of an: EKG, Plain X-Ray and CT Scan Interpretation: Wide QRS rhythm Left axis deviation Non-specific intra-ventricular conduction block Minimal voltage criteria for LVH, may be normal variant ( [place] product ) T wave abnormality, consider lateral ischemia Abnormal ECG When compared with ECG of 18-JAN-2022 14:34, Wide QRS rhythm has replaced Sinus rhythm Vent. rate 69 BPM NH interval * ms QRS duration 132 ms QT/QTc 432/462 ms P-R-T axes * -48 129 30-MAR-2022 18:40:24 Radiology Impression Discussion of test interpretation with radiology: I have reviewed the radiol ogist's reading. Radiologist Impression: EXAMINATION: CT ABDOMEN AND PELVIS WITHOUT CONTRAST? CLINICAL INFORMATION: Abdominal pain? COMPARISON: CT abdomen with lower extremity runoff 03/05/2022? TECHNIQUE: Multidetector volumetric imaging was performed from the superior aspect of the liver through the pubic symphysis. Sagittal and coronal reformatted images were obtained on the technologist's workstation.? This CT examination was performed using dose optimization techniques as appropriate, variously including the following: *Automated exposure control *Adjustment of mA and/or kV according to patient size (this includes techniques or standardized protocols for targeted exams where dose is matched to indication/reason for exam; i.e. extremities or head) *Use of iterative reconstruction technique DLP: 467 mGy-cm FINDINGS: LUNG BASES: Small right and trace left pleural effusions. Mild passive right basilar atelectasis. Status post median sternotomy. Coronary artery vascular calcifications noted.? LIVER, GALLBLADDER, AND BILIARY TREE: The liver is normal in size, shape, and attenuation. No focal hepatic lesion or biliary ductal dilatation is present. Gallbladder is distended and contains small amount of sludge and calcified stones. There is a approximately 1.2 cm stone in the region of the gallbladder neck. There is mild hazy pericholecystic inflammatory change. Findings raise concern for acute cholecystitis.? PANCREAS: Unremarkable.? SPLEEN: Normal splenic size. There is a new somewhat linear wedge-shaped area of geographic hypoattenuation in the lateral upper spleen, not definitely seen previously which could represent a interval splenic infarct.? ADRENAL GLANDS: Unremarkable.? KIDNEYS AND URETERS: Bilateral renal atrophy with diminutive size. No hydronephrosis. No renal calculi or appreciable renal lesion. No perinephric fluid collection.? BLADDER: Unremarkable.? GASTROINTESTINAL TRACT: Small to moderate amount of formed stool throughout colon. No dilated bowel loops or bowel wall thickening. Appendix is normal. No pneumatosis or free air. Small amount of free pelvic fluid/pelvic ascites, new since prior. ABDOMINAL WALL: Small fat-containing left inguinal hernia. Mild body wall edema. Mild presacral edema. LYMPH NODES: No lymphadenopathy. VASCULAR: Extensive diffuse Monckeberg type atherosclerotic vascular calcifications. PELVIC VISCERA: Unremarkable.? OSSEOUS STRUCTURES: No acute fracture or suspicious osseous lesion. Evidence of congenital spinal stenosis. Mild diffuse multilevel spondylosis of the visualized thoracolumbar spine. CT/CT abdomen pelvis wo IV con IMPRESSION: 1.? Distended gallbladder containing sludge and stones with mild pericholecystic inflammatory change and a 1.2 cm stone in the region of the gallbladder neck. Findings raise concern for acute cholecystitis. Correlate clinically. 2.? Small amount of free pelvic fluid/pelvic ascites, new since prior. 3.? Small right and trace left pleural effusions. 4.? New wedge-shaped area of hypoattenuation in the lateral upper spleen, suspicious for splenic infarct. 5.? Additional ancillary findings, as described. EXAMINATION: XR CHEST CLINICAL INFORMATION: Abdominal pain COMPARISON: 03/12/2022 TECHNIQUE: Frontal view of the chest was obtained. FINDINGS: Median sternotomy wires appear intact. Surgical clips overlie the mediastinum. Cardiac leads overlie the chest. Chronic elevation of the right hemidiaphragm. Central vascular prominence without overt edema. No dense consolidation. No pleural effusion. No pneumothorax. Cardiomediastinal silhouette is unchanged. XR/XR chest 1V IMPRESSION: Central vascular prominence without overt edema. Chronic elevation of the right hemidiaphragm. Independent Historian Clinical information obtained from an independent historian. History obtained from or confirmed by: Other (Daughter) External Record Review External record reviewed: Outpatient record Chronic Conditions Patient?s care impacted by: Diabetes, Hypertension and Other (End-stage renal disease on dialysis) Medications Administered Discontinued Medications Generic Name Dose Route Start Last Admin Trade Name Freq PRN Reason Stop Dose Admin Piperacillin Sod/Tazobactam 50 mls @ 100 mls/hr 03/30/22 18:10 03/30/22 19:25 Sod 3.375 gm/ Sodium Chloride IV 03/30/22 18:39 Infused ONCE ONE Infusion Critical Care Time Critical Care Time Critical Care Time: Yes Total Critical Care Time: 45 Attestation: I have personally provided critical care time exclusive of time spent on separately billable procedures. Time includes review of laboratory data, radiology results, discussion with consultants, and monitoring for potential decompensation. Interventions were performed as documented. Discharge Plan Discharge Clinical Impression: Cholecystitis with cholelithiasis, Splenic infarct, Decubitus ulcer Patient Disposition: Admitted As Inpatient
[2022-03-30 17:33] LABS: Influenza A PCR NEGATIVE (Negative); Influenza B PCR NEGATIVE (Negative); Resp Syncy Virus RNA Qual PCR NEGATIVE (Negative); SARS COV2 PCR INHOUSE NEGATIVE (Negative)
[2022-03-30 17:37] LABS: Basophils Percent Auto 0.4 % (0-2); Eosinophils Absolute Auto 0.2 X10*3/uL (0.0-0.4); Hematocrit 26.9 % (42.0-52.0); Hemoglobin 8.7 g/dl (14.0-18.0); Imm Gran Abs Auto 0.12 X10*3/uL (0.00-0.03); Imm Gran Pct Auto 1.1 % (0.0-0.4); Lymphocytes Absolute Auto 0.6 X10*3/uL (1.2-4.9); Lymphocytes Percent Auto 4.9 % (20-40); Mean Corpuscular HGB Conc 32.3 g/dl (31.0-36.0); Mean Corpuscular Hemoglobin 31.4 pg (27.0-33.0); Mean Corpuscular Volume 97.1 fL (80.0-98.0); Mean Platelet Volume 11.2 fL (9.4-12.4); Monocytes Absolute Auto 0.4 X10*3/uL (0.1-1.2); Monocytes Percent Auto 3.3 % (2-11); Neutrophils Absolute Auto 10.1 x10*3/uL (2.0-8.3); Neutrophils Percent Auto 88.3 % (45-73); Platelet Count 296 X10*3/uL (160-400); Red Blood Count 2.77 X10*6/uL (4.60-5.80); Red Cell Distribution Width 16.9 % (11.0-16.0); White Blood Count 11.4 X10*3/uL (4.8-10.8)
--- NOTE | 2022-03-30 18:04 | PC.NURSE ---
Chemistry hemolyzed, Contact made to phlebotomy. ETA 10-15min from time of note for draw.
--- NOTE | 2022-03-30 18:10 | ECG_ITS ---
Test Reason : ABD PAIN Blood Pressure : / mmHG Vent. Rate : 069 BPM Atrial Rate : 000 BPM P-R Int : 000 ms QRS Dur : 132 ms QT Int : 432 ms P-R-T Axes : 000 -48 129 degrees QTc Int : 462 ms Artifact in tracing Normal sinus rhythm Left axis deviation Non-specific intra-ventricular conduction block Minimal voltage criteria for LVH, may be normal variant ( [place] product ) T wave abnormality, consider lateral ischemia Abnormal ECG When compared with ECG of 18-JAN-2022 14:34, No significant changes seen Referred By: Keshia Garcia Electronically Signed By:CLAIRE COFFEY
--- NOTE | 2022-03-30 18:25 | PC.NURSE ---
phlebotomy at bedside
[2022-03-30] MEDS: Piperacillin Sodium/Tazobactam 3.375 GM in 0.9 % Sodium Chloride 50 ML IV (18:57)
[2022-03-30 19:01] VITALS: BP 148/48; PULSE 66; RESP 18; TEMP 36.9; O2SAT 94
[2022-03-30 19:02] LABS: INTERNATIONAL NORM RATIO 1.6 (0.9-1.1); Prothrombin Time 18.9 SEC (10.0-13.1)
[2022-03-30 19:04] LABS: Partial Thromboplastin Time 32.3 SEC (26.0-36.4)
[2022-03-30 19:07] LABS: Lactic Acid 0.8 mmol/L (0.5-2.0)
[2022-03-30 19:10] LABS: Alanine Aminotransferase 113 U/L (0-40); Albumin Level 2.3 g/dL (3.5-5.0); Alkaline Phosphatase 285 U/L (39-117); Anion Gap 15 (12-20); Aspartate Amino Transferase 198 U/L (5-37); Bilirubin Direct 1.7 mg/dL (0.0-0.5); Bilirubin Total 2.3 mg/dL (0.0-1.0); Blood Urea Nitrogen 20 mg/dL (9-16); Calcium 8.4 mg/dL (8.4-10.2); Carbon Dioxide 27 mmol/L (22-29); Chloride 98 mmol/L (96-108); Creatinine Clr Calc Pharmacy 29.5; Estimated Glomerular Filt Rate 35; Glucose Random 142 mg/dL (60-115); Lipase 39 U/L (8-78); Potassium 3.7 mmol/L (3.3-5.1); Sodium 136 mmol/L (135-145)
[2022-03-30 19:17] LABS: Troponin-I High Sensitivity 49.8 ng/L (<3.5-35.0)
--- NOTE | 2022-03-30 21:18 | PHA.MEDREC ---
med rec complete, no issues Pharmacy Consult ? Medication Reconciliation Pharmacy has completed the medication reconciliation.
--- NOTE | 2022-03-30 22:19 | PM.IMHP ---
History of Present Illness Date of Service: 03/30/22 Chief Complaint: ABd pain 76-year-old male Hungarian-speaking, hard of hearing, with past medical history of ESRD on dialysis Saturday, diabetes, mixed hyperlipidemia, status post bilateral BKA, presents to the hospital with complaint of severe abdominal pain. History is obtained with the help of an interpreter translator and his daughter at bedside as patient is also hard of hearing It seems the patient completed dialysis today but was complaining of severe abdominal pain, patient reports the pain to be in the right upper quadrant, nonradiating, constant, worse with eating or drinking anything. Reports the pain started today. He denies any fever chills, no nausea or vomiting, no chest pain, no shortness of breath, no palpitations, he does not produce urine on reports that the recent right BKA has no new complications . On arrival to the ED patient hemodynamically stable with no significant abnormal vitals Labs are significant for WBC count of 11.4, hemoglobin of 8.7 which is around his baseline, creatinine of 1.88, direct bili of 1.7, total bili of 2.3, AST of 198, ALT of 113, alk-phos of 283, troponin of 49.8, Abdomen pelvic CT shows distended gallbladder containing sludge and stones with mild pericholecystic inflammatory changes low 1.2 cm stone in the region of the gallbladder neck, findings raise concern for acute cholecystitis. Small right and trace left pleural effusions, also seen is a new wedge-shaped area of hypoattenuation in the lateral upper spleen suspicious for splenic infarct Case was discussed with vascular surgery as well as General surgery, and patient will be admitted for further management Review of Systems Review of Systems: Yes all other systems are reviewed and are negative [facility] Medical History Anemia in chronic kidney disease Below-knee amputation of left lower extremity Diabetes Diabetes mellitus, with long-term current use of insulin Diarrhea End stage renal disease End-stage renal disease on hemodialysis Fever of unknown origin High cholesterol History of leg amputation Hypertension Microalbuminuria Mixed hyperlipidemia PAD (peripheral artery disease) Preoperative cardiovascular examination Family History Father Myocardial infarction Mother No problems noted. Surgical History History of eye surgery History of laminectomy History of surgery History of surgery on arm S/P CABG x 4 S/P unilateral BKA (below knee amputation) Social History Household Members: Children Housing: Apartment Do you presently have visiting nurse or other home services: Yes (nursing aid) Alcohol intake: unknown Patient Tobacco Use Status: Never used Tobacco Smoked in Last 30 Days: No e-Cigarette/Vaping Use: Never Used Second Hand Smoke Exposure: No Use of substances other than those prescribed or required for medical reasons: No Have you been hit, kicked, punched, or otherwise hurt by someone within the past year? If so, by whom?: No Do you feel safe in your current relationship?: No Is there a partner from a previous relationship who is making you feel unsafe now?: No Are you made to feel afraid or neglected: No Advance Directives: Yes Advance Directives on File: Yes Advance Directives Date on File: 06/15/21 Do you have thoughts of harming others: None Do you have a plan to hurt others: No Plan Recently lost weight without trying: No How much weight loss: Unsure Eating poorly because of decreased appetite: No Nutrition screen score: 2 Nutrition Risks: No Nutritional Risk Poor oral hygiene: No service: No Current occupational status: retired and disabled Cognitive needs: Yes Hearing needs: No Vision needs: No Meds Allergies Allergy/AdvReac Type Severity Reaction Status Date / Time lisinopril Allergy Intermediate hyperkalemi Verified 03/22/22 15:35 a lidocaine [From LIDOPRIL] Allergy Mild COUGH Verified 03/22/22 15:35 prilocaine [From LIDOPRIL] Allergy Mild COUGH Verified 03/22/22 15:35 canagliflozin [Invokana] AdvReac Mild back pain Verified 03/22/22 15:35 Hydralazine-HCTZ Allergy Unknown Unknown Uncoded 01/11/22 10:25 Active Medications: Current Medications Acetaminophen (Acetaminophen 325 Mg Tablet) 650 mg PO Q6H PRN PRN Reason: Pain, Mild (Pain Scale 1-3) Docusate Sodium (Docusate Sodium 100 Mg Capsule) 100 mg PO DAILY PRN PRN Reason: Constipation Heparin Sodium (Porcine) (Heparin Sodium,Porcine 5,000 Unit/Ml Vial) 5,000 unit SUBCUT Q12H [facility] Metronidazole (Flagyl) 500 mg in 100 mls @ 100 mls/hr IV Q8H [facility] Ceftriaxone Sodium 1 gm/ (Sodium Chloride) 50 mls @ 100 mls/hr IV Q24H [facility] Ondansetron HCl (Ondansetron Hcl 4 Mg/2 Ml Vial) 4 mg IVPUSH Q8H PRN PRN Reason: Nausea and Vomiting Oxycodone HCl (Oxycodone Hcl Immed Release 5 Mg Tablet) 5 mg PO Q6H PRN PRN Reason: Pain, Severe (Pain Scale 7-10) Sodium Chloride (0.9 % Sodium Chloride Flush 3 Ml Syringe) 3 ml IVFLUSH QSHIFT [facility] Home Medications Medication Instructions Recorded Confirmed Last Taken Type sevelamer carbonate 800 mg tablet 1,600 mg PO TIDWM 01/22/20 03/30/22 03/30/22 History amlodipine 5 mg tablet 5 mg PO BEDTIME 06/01/21 03/30/22 03/30/22 History aspirin 81 mg tablet,delayed 1 tab PO DAILY 06/01/21 03/30/22 03/30/22 History release carvedilol 25 mg tablet 1 tab PO BID 06/01/21 03/30/22 03/30/22 History ursodiol 300 mg capsule 1 cap PO BID 06/01/21 03/30/22 03/30/22 History losartan 100 mg tablet 100 mg PO DAILY 01/23/22 03/30/22 03/30/22 History ergocalciferol (vitamin D2) 1,250 1,250 mcg PO FR@1000 03/30/22 03/30/22 Unknown History mcg (50,000 unit) capsule (Vitamin D2) tramadol 50 mg tablet 50 mg PO DAILY PRN Pain 03/30/22 03/30/22 Unknown History vitamin B complex and vitamin C 1 cap PO DAILY 03/30/22 03/30/22 03/30/22 History no.20-folic acid 1 mg capsule (Virt-Caps) Physical Exam Vital Signs and Narrative: Vital Signs: Last Vital Signs Temp 98.4 F 03/30/22 19:01 Pulse 66 03/30/22 19:01 Resp 18 03/30/22 19:01 BP 148/48 H 03/30/22 19:01 Pulse Ox 94 01/27/23 19:01 O2 Del Method 03/30/22 19:01 BMI result Body Mass Index 23.8 Const: General: cooperative and no acute distress Orientation/consciousness: patient oriented x3 Eyes: General: appearance normal, both eyes and all related structures Resp: Effort & Inspection: normal respiratory effort Auscultation: clear to auscultation bilaterally Cardio: Rate: regular rate Rhythm: regular rhythm GI: Other: Abdomen is diffusely tender, worse in the right upper quadrant, no rebound or guarding Palpation (GI): Soft to palpation Skin: General skin exam: no rashes or lesions noted Neuro: General: patient oriented x3 Cognition (Neuro): normal cognition Extrem: Other: Bilateral BKA Dressing appears clean and dry General: Yes no pedal edema Results Labs 03/30/22 17:29 03/30/22 18:38 Labs: Laboratory Results - last 24 hr 03/30/22 03/30/22 03/30/22 16:43 17:29 18:38 MCV 97.1 MCH 31.4 MCHC 32.3 RDW 16.9 H Plt Count 296 MPV 11.2 Immature Gran % (Auto) 1.1 H Neut % (Auto) 88.3 H Lymph % (Auto) 4.9 L Wright % (Auto) 3.3 Eos % (Auto) 2.0 Baso % (Auto) 0.4 Lymph # (Auto) 0.6 L Wright # (Auto) 0.4 Eos # (Auto) 0.2 Baso # (Auto) 0.0 Abs Immat Gran (auto) 0.12 H Absolute Neuts (auto) 10.1 H Absolute Nucleated RBC 0.000 Nucleated RBC % (auto) 0.0 PT INR APTT Anion Gap 15 Estim Creat Clear Calc 29.5 Estimated GFR 35 Random Glucose 142 H Lactic Acid Calcium 8.4 Total Bilirubin 2.3 H Direct Bilirubin 1.7 H AST 198 H ALT 113 H Alkaline Phosphatase 285 H Troponin I High Sens Total Protein 6.0 L Albumin 2.3 L Lipase 39 Influenza Type A (PCR) NEGATIVE Influenza Type B (PCR) NEGATIVE RSV RNA Qual (PCR) NEGATIVE SARS-CoV-2 RNA (RT-PCR) NEGATIVE 03/30/22 03/30/22 03/30/22 18:38 18:38 18:38 MCV MCH MCHC RDW Plt Count MPV Immature Gran % (Auto) Neut % (Auto) Lymph % (Auto) Wright % (Auto) Eos % (Auto) Baso % (Auto) Lymph # (Auto) Wright # (Auto) Eos # (Auto) Baso # (Auto) Abs Immat Gran (auto) Absolute Neuts (auto) Absolute Nucleated RBC Nucleated RBC % (auto) PT 18.9 H INR 1.6 H APTT 32.3 Anion Gap Estim Creat Clear Calc Estimated GFR Random Glucose Lactic Acid 0.8 Calcium Total Bilirubin Direct Bilirubin AST ALT Alkaline Phosphatase Troponin I High Sens 49.8 H Total Protein Albumin Lipase Influenza Type A (PCR) Influenza Type B (PCR) RSV RNA Qual (PCR) SARS-CoV-2 RNA (RT-PCR) Imaging Radiologist's Impressions: Impressions Chest X-Ray 03/30/22 16:35 IMPRESSION: Central vascular prominence without overt edema. Chronic elevation of the right hemidiaphragm. Abdomen/Pelvis CT 03/30/22 17:21 IMPRESSION: 1. Distended gallbladder containing sludge and stones with mild pericholecystic inflammatory change and a 1.2 cm stone in the region of the gallbladder neck. Findings raise concern for acute cholecystitis. Correlate clinically. 2. Small amount of free pelvic fluid/pelvic ascites, new since prior. 3. Small right and trace left pleural effusions. 4. New wedge-shaped area of hypoattenuation in the lateral upper spleen, suspicious for splenic infarct. 5. Additional ancillary findings, as described. Assessment and Plan (1) Cholecystitis with cholelithiasis: Status: Acute (2) Splenic infarct: Status: Acute (3) Decubitus ulcer: Status: Acute Plan 76-year-old male with past medical history of ESRD on dialysis, diabetes, recent below-knee amputation on the right, presents the hospital with complaints of abdominal pain found to have acute cholecystitis # acute cholecystitis with cholelithiasis - surgery consult, recommended treatment with antibiotics - patient started with IV antibiotic - will follow cultures - general surgeon consult # splenic infarct - daughter and patient report possible history of arrhythmias but nothing documented in the EMR - patient not on anticoagulation - case discussed with vascular surgery through the ED - no need for anticoagulation at this time - vascular surgery consult # decubitus ulcer - does not appear to be infected - wound care consult # end-stage renal disease - dialysis MWF - nephrology consult # peripheral artery disease - status post bilateral BKA - healing well - monitor # anemia of chronic disease - stable - follow CBC # hypertension - stable - continue antihypertensives # diabetes - continue home insulin - will add low-dose sliding scale insulin - diabetic diet DVT prophylaxis: Heparin subQ Given patient's need for IV antibiotics in the setting of acute cholecystitis patient will require minimum 2 nights inpatient hospital stay for further management and monitor Time Spent With Patient Time: Total time managing care of this patient today ____ minutes. Quality Stroke Does the patient have a stroke diagnosis?: No VTE Prior VTE?: No VTE Risk Level:: Medical - moderate - high VTE Device Contraindication: Treatment Not Indicated VTE Drug Contraindication: N/A - Med Ordered
[2022-03-30] MEDS: Heparin Sodium,Porcine 5,000 UNIT/ML VIAL 5000 UNIT SUBCUT (22:56)
[2022-03-30] MEDS: cefTRIAXone sodium 1 GM in 0.9 % Sodium Chloride 50 ML IV (22:56)
[2022-03-30 22:57] VITALS: BP 145/37; PULSE 64; RESP 18; TEMP 36.6; O2SAT 98
--- NOTE | 2022-03-30 23:02 | PC.NURSE ---
Re-Assess: PT's V/S are stable, pt is on the continuos edi developer and it shows NSR. Pt is urinary and bowel incontinence. Pt is a/o x4.
[2022-03-31] MEDS: metroNIDAZOLE/NS 500 MG/100 ML PIGGYBACK 100 MG IV ×4 (00:01→22:59)
--- NOTE | 2022-03-31 00:03 | PC.NURSE ---
Re-Assess: Pt's V/S are stable, pt is on the panel monitor and it shows NSR. Pt's abx were administered as order. Pt's linen was changed, pt's was clean and dressing changed d/t bowel movement.
[2022-03-31 01:33] VITALS: BMI 24.7
[2022-03-31 01:36] VITALS: BP 137/99; PULSE 69; RESP 18; TEMP 36.8; O2SAT 92
--- NOTE | 2022-03-31 03:25 | PC.NURSE ---
Pt arrived from the ED on a stretcher alert, Turkmen speaking only, Turkmen speaking staff help with adm, oriented x4, denies any discomfort, noted with unstageable Pressure Ulcer on sacral area, cleansed area with NSS, foam dressing applied, right BKA stump dressing changed and noted the suture line with black eschar with minimal sero sang discharge, sutures intact, cleansed with NSS and covered with non stick gauze and rolled gauze, pt instructed to use callbell, plan of care instructed.
[2022-03-31 04:00] VITALS: BP 140/87; PULSE 78; TEMP 36.7; O2SAT 98
[2022-03-31 06:54] LABS: MANUAL DIFF FLAG NO
[2022-03-31 07:05] LABS: Basophils Absolute Auto 0.1 X10*3/uL (0.0-0.2); Basophils Percent Auto 0.7 % (0-2); Eosinophils Absolute Auto 0.3 X10*3/uL (0.0-0.4); Eosinophils Percent Auto 2.5 % (0-4); Hematocrit 24.8 % (42.0-52.0); Hemoglobin 8.1 g/dl (14.0-18.0); Imm Gran Abs Auto 0.11 X10*3/uL (0.00-0.03); Imm Gran Pct Auto 1.1 % (0.0-0.4); Lymphocytes Absolute Auto 0.7 X10*3/uL (1.2-4.9); Lymphocytes Percent Auto 6.5 % (20-40); Mean Corpuscular HGB Conc 32.7 g/dl (31.0-36.0); Mean Platelet Volume 11.5 fL (9.4-12.4); Monocytes Absolute Auto 0.5 X10*3/uL (0.1-1.2); Monocytes Percent Auto 4.6 % (2-11); Neutrophils Absolute Auto 8.5 x10*3/uL (2.0-8.3); Neutrophils Percent Auto 84.6 % (45-73); Platelet Count 266 X10*3/uL (160-400); Red Blood Count 2.53 X10*6/uL (4.60-5.80); Red Cell Distribution Width 17.1 % (11.0-16.0); White Blood Count 10.1 X10*3/uL (4.8-10.8)
[2022-03-31 07:22] LABS: Anion Gap 15 (12-20); Blood Urea Nitrogen 28 mg/dL (9-16); Calcium 8.4 mg/dL (8.4-10.2); Carbon Dioxide 27 mmol/L (22-29); Chloride 99 mmol/L (96-108); Creatinine Clr Calc Pharmacy 21.5; Estimated Glomerular Filt Rate 24; Glucose Random 120 mg/dL (60-115); Potassium 4.1 mmol/L (3.3-5.1); Sodium 137 mmol/L (135-145)
[2022-03-31 07:24] LABS: Troponin-I High Sensitivity 65.4 ng/L (<3.5-35.0)
[2022-03-31] MEDS: 0.9 % Sodium Chloride Flush 3 ML SYRINGE IVFLUSH ×3 (07:28→19:43)
[2022-03-31 08:00] VITALS: BP 148/65; PULSE 64; RESP 16; TEMP 37.2; O2SAT 93
[2022-03-31 08:12] LABS: Glucose, Whole Blood 111 mg/dL (60-115)
[2022-03-31 08:25] LABS: C Reactive Protein 13.76 mg/dL (< or = 0.50)
--- NOTE | 2022-03-31 08:49 | PM.CNGS ---
History of Present Illness Consult details Consult date: 03/31/22 Requesting physician: Keshia Garcia Narrative: 76-year-old male patient presenting to the emergency department on 03/30/2022 with complaints of severe abdominal pain. Patient has a history of multiple medical problems including end-stage renal disease, on hemodialysis, diabetes, peripheral vascular disease, Anemia, hyperlipidemia, s/p bilateral BKA, and hard of hearing. The pain was felt mainly in the right upper quadrant and was made worse with eating. Apparently was no previous episode of similar pain. He subsequently presented to the emergency department for further evaluation. Laboratories revealed WBC of 11.4 and elevated direct in total bilirubin of 1.7/2.3. A CT of the abdomen and pelvis revealed a distended gallbladder new from his previous CT scan with probable sludge and stones and mild pericholecystic inflammation. A stone was noted in the neck of the gallbladder. Incidentally noted was a wedge shaped area of hypoattenuation in the upper spleen suggestive of a splenic infarct. The patient is also noted to have diffusely calcified vessels, including the mesenteric and cardiac vessels. Review of Systems Review of Systems: Yes Unobtainable due to mental condition Neurologic: Reports confusion Psychiatric: Psychiatric: Reports confusion PMFSH Past Medical History Medical History Anemia in chronic kidney disease Below-knee amputation of left lower extremity Diabetes Diabetes mellitus, with long-term current use of insulin Diarrhea End stage renal disease End-stage renal disease on hemodialysis Fever of unknown origin High cholesterol History of leg amputation Hypertension Microalbuminuria Mixed hyperlipidemia PAD (peripheral artery disease) Preoperative cardiovascular examination Family History Family History Father Myocardial infarction Mother No problems noted. Surgical History Surgical History History of eye surgery History of laminectomy History of surgery History of surgery on arm S/P CABG x 4 S/P unilateral BKA (below knee amputation) Social History Social History Household Members: Children Housing: Apartment Do you presently have visiting nurse or other home services: Yes (nursing aid) Alcohol intake: unknown Patient Tobacco Use Status: Never used Tobacco Smoked in Last 30 Days: No e-Cigarette/Vaping Use: Never Used Second Hand Smoke Exposure: No Use of substances other than those prescribed or required for medical reasons: No Have you been hit, kicked, punched, or otherwise hurt by someone within the past year? If so, by whom?: No Do you feel safe in your current relationship?: No Is there a partner from a previous relationship who is making you feel unsafe now?: No Are you made to feel afraid or neglected: No Advance Directives: Yes Advance Directives on File: Yes Advance Directives Date on File: 06/15/21 Do you have thoughts of harming others: None Do you have a plan to hurt others: No Plan Recently lost weight without trying: No How much weight loss: Unsure Eating poorly because of decreased appetite: No Nutrition screen score: 2 Nutrition Risks: No Nutritional Risk Poor oral hygiene: No service: No Current occupational status: retired and disabled Cognitive needs: Yes Hearing needs: No Vision needs: No Meds Allergies Allergy/AdvReac Type Severity Reaction Status Date / Time lisinopril Allergy Intermediate hyperkalemi Verified 03/22/22 15:35 a lidocaine [From LIDOPRIL] Allergy Mild COUGH Verified 03/22/22 15:35 prilocaine [From LIDOPRIL] Allergy Mild COUGH Verified 03/22/22 15:35 canagliflozin [Invokana] AdvReac Mild back pain Verified 03/22/22 15:35 Hydralazine-HCTZ Allergy Unknown Unknown Uncoded 01/11/22 10:25 Active Medications: Current Medications Acetaminophen (Acetaminophen 325 Mg Tablet) 650 mg PO Q6H PRN PRN Reason: Pain, Mild (Pain Scale 1-3) Amlodipine Besylate (Amlodipine Besylate 5 Mg Tablet) 5 mg PO BEDTIME HANH; Protocol Atorvastatin Calcium (Atorvastatin Calcium 40 Mg Tablet) 40 mg PO BEDTIME [facility]ANH Bumetanide (Bumetanide 1 Mg Tablet) 1 mg PO DAILY [facility]; Protocol Carvedilol (Carvedilol 25 Mg Tablet) 25 mg PO BID [facility]AN[facility]; Protocol Dextrose (Dextrose 50 % 25 Gm/50 Ml Syringe) 25 gm IVPUSH Q15M PRN; Protocol PRN Reason: per Hypoglycemia Standing Ord. Docusate Sodium (Docusate Sodium 100 Mg Capsule) 100 mg PO DAILY PRN PRN Reason: Constipation Ergocalciferol (Ergocalciferol (Vitamin D2) 1,250 Mcg Capsule) 1,250 mcg PO FR@1000 [facility] Fenofibrate (Fenofibrate 160 Mg Tablet) 160 mg PO DAILY [facility] Ferrous Sulfate (Ferrous Sulfate 324 Mg Tablet.Dr) 324 mg PO TID [facility] Glucose (Glucose Gel 15 Gm Gel..Gram.) 15 gm PO Q15M PRN; Protocol PRN Reason: per Hypoglycemia Standing Ord. Heparin Sodium (Porcine) (Heparin Sodium,Porcine 5,000 Unit/Ml Vial) 5,000 unit SUBCUT Q12H [facility] Last Admin: 03/30/22 22:56 Dose: 5,000 unit Metronidazole (Flagyl) 500 mg in 100 mls @ 100 mls/hr IV Q8H [facility] Last Infusion: 03/31/22 07:30 Dose: Infused Ceftriaxone Sodium 1 gm/ (Sodium Chloride) 50 mls @ 100 mls/hr IV Q24H [facility] Last Infusion: 03/30/22 23:25 Dose: Infused Insulin Glargine (Insulin Glargine,Hum.Rec.Anlog 100 Unit/Ml 10 Ml Vial) 8 unit SUBCUT BID [facility] Insulin Human Lispro (Insulin Lispro 100 Unit/Ml 3 Ml Vial) 0 unit SUBCUT QIDACHS [facility]; Protocol Losartan Potassium (Losartan Potassium 50 Mg Tablet) 100 mg PO DAILY [facility]; Protocol Multivitamins/Vitamin C (Multivitamin Tablet) 1 tab PO DAILY [facility] Ondansetron HCl (Ondansetron Hcl 4 Mg/2 Ml Vial) 4 mg IVPUSH Q8H PRN PRN Reason: Nausea and Vomiting Oxycodone HCl (Oxycodone Hcl Immed Release 5 Mg Tablet) 5 mg PO Q6H PRN PRN Reason: Pain, Severe (Pain Scale 7-10) Sevelamer Carbonate (Sevelamer Carbonate Tablet 800 Mg Tablet) 1,600 mg PO TIDWM [facility] Sodium Chloride (0.9 % Sodium Chloride Flush 3 Ml Syringe) 3 ml IVFLUSH QSHIFT [facility] Last Admin: 03/31/22 07:28 Dose: 3 ml Ursodiol (Ursodiol 300 Mg Capsule) 300 mg PO BID [facility] Home Medications Medication Instructions Recorded Confirmed Last Taken Type sevelamer carbonate 800 mg tablet 1,600 mg PO TIDWM 01/22/20 03/30/22 03/30/22 History amlodipine 5 mg tablet 5 mg PO BEDTIME 06/01/21 03/30/22 03/30/22 History aspirin 81 mg tablet,delayed 1 tab PO DAILY 06/01/21 03/30/22 03/30/22 History release carvedilol 25 mg tablet 1 tab PO BID 06/01/21 03/30/22 03/30/22 History ursodiol 300 mg capsule 1 cap PO BID 06/01/21 03/30/22 03/30/22 History losartan 100 mg tablet 100 mg PO DAILY 01/23/22 03/30/22 03/30/22 History ergocalciferol (vitamin D2) 1,250 1,250 mcg PO FR@1000 03/30/22 03/30/22 Unknown History mcg (50,000 unit) capsule (Vitamin D2) tramadol 50 mg tablet 50 mg PO DAILY PRN Pain 03/30/22 03/30/22 Unknown History vitamin B complex and vitamin C 1 cap PO DAILY 03/30/22 03/30/22 03/30/22 History no.20-folic acid 1 mg capsule (Virt-Caps) Physical Exam Vital Signs: Vital Signs: Last Vital Signs Temp 98.9 F 03/31/22 08:00 Pulse 64 03/31/22 08:00 Resp 16 03/31/22 08:00 BP 148/65 H 03/31/22 08:00 Pulse Ox 93 03/31/22 08:00 O2 Del Method 03/31/22 08:00 BMI result Body Mass Index 24.7 Const: General: no acute distress, alert and confusion Nutritional Appearance: well nourished Orientation/consciousness: confusion HEENT: Head: Yes normocephalic and Yes atraumatic Resp: Effort & Inspection: normal respiratory effort, no audible wheezes, no cough and no respiratory distress GI: Inspection: Yes normal to inspection and Yes distended Palpation (GI): Soft to palpation, Tenderness to palpation present (GI) in the RUQ and Munoz's sign positive and No hepatosplenomegaly present Percussion: Yes normal to percussion Rectal Exam - Male: Yes deferred Skin: Other: Warm, dry, no rash, normal color Neuro: General: confusion Extrem: Other: S/P bilateral BKA Results Labs 03/31/22 06:48 03/31/22 06:48 Labs: Abnormal lab results 03/30/22 03/30/22 03/30/22 Range/Units 17:29 18:38 18:38 WBC 11.4 H (4.8-10.8) X10*3/uL RBC 2.77 L (4.60-5.80) X10*6/uL Hgb 8.7 L (14.0-18.0) g/dl Hct 26.9 L (42.0-52.0) % RDW 16.9 H (11.0-16.0) % Immature Gran % (Auto) 1.1 H (0.0-0.4) % Neut % (Auto) 88.3 H (45-73) % Lymph % (Auto) 4.9 L (20-40) % Lymph # (Auto) 0.6 L (1.2-4.9) X10*3/uL Abs Immat Gran (auto) 0.12 H (0.00-0.03) X10*3/uL Absolute Neuts (auto) 10.1 H (2.0-8.3) x10*3/uL PT (10.0-13.1) SEC INR (0.9-1.1) BUN 20 H (9-16) mg/dL Creatinine 1.88 H (0.5-1.4) mg/dL Random Glucose 142 H (60-115) mg/dL Total Bilirubin 2.3 H (0.0-1.0) mg/dL Direct Bilirubin 1.7 H (0.0-0.5) mg/dL AST 198 H (5-37) U/L ALT 113 H (0-40) U/L Alkaline Phosphatase 285 H (39-117) U/L Troponin I High Sens 49.8 H (<3.5-35.0) ng/L C-Reactive Protein (< or = 0.50) mg/dL Total Protein 6.0 L (6.5-8.0) g/dL Albumin 2.3 L (3.5-5.0) g/dL 03/30/22 03/31/22 03/31/22 Range/Units 18:38 06:48 06:48 WBC (4.8-10.8) X10*3/uL RBC 2.53 L (4.60-5.80) X10*6/uL Hgb 8.1 L (14.0-18.0) g/dl Hct 24.8 L (42.0-52.0) % RDW 17.1 H (11.0-16.0) % Immature Gran % (Auto) 1.1 H (0.0-0.4) % Neut % (Auto) 84.6 H (45-73) % Lymph % (Auto) 6.5 L (20-40) % Lymph # (Auto) 0.7 L (1.2-4.9) X10*3/uL Abs Immat Gran (auto) 0.11 H (0.00-0.03) X10*3/uL Absolute Neuts (auto) 8.5 H (2.0-8.3) x10*3/uL PT 18.9 H (10.0-13.1) SEC INR 1.6 H (0.9-1.1) BUN 28 H (9-16) mg/dL Creatinine 2.58 H (0.5-1.4) mg/dL Random Glucose 120 H (60-115) mg/dL Total Bilirubin (0.0-1.0) mg/dL Direct Bilirubin (0.0-0.5) mg/dL AST (5-37) U/L ALT (0-40) U/L Alkaline Phosphatase (39-117) U/L Troponin I High Sens (<3.5-35.0) ng/L C-Reactive Protein 13.76 H (< or = 0.50) mg/dL Total Protein (6.5-8.0) g/dL Albumin (3.5-5.0) g/dL 03/31/22 Range/Units 06:48 WBC (4.8-10.8) X10*3/uL RBC (4.60-5.80) X10*6/uL Hgb (14.0-18.0) g/dl Hct (42.0-52.0) % RDW (11.0-16.0) % Immature Gran % (Auto) (0.0-0.4) % Neut % (Auto) (45-73) % Lymph % (Auto) (20-40) % Lymph # (Auto) (1.2-4.9) X10*3/uL Abs Immat Gran (auto) (0.00-0.03) X10*3/uL Absolute Neuts (auto) (2.0-8.3) x10*3/uL PT (10.0-13.1) SEC INR (0.9-1.1) BUN (9-16) mg/dL Creatinine (0.5-1.4) mg/dL Random Glucose (60-115) mg/dL Total Bilirubin (0.0-1.0) mg/dL Direct Bilirubin (0.0-0.5) mg/dL AST (5-37) U/L ALT (0-40) U/L Alkaline Phosphatase (39-117) U/L Troponin I High Sens 65.4 H (<3.5-35.0) ng/L C-Reactive Protein (< or = 0.50) mg/dL Total Protein (6.5-8.0) g/dL Albumin (3.5-5.0) g/dL Short CBC 03/30/22 03/31/22 Range/Units 17:29 06:48 WBC 11.4 H 10.1 (4.8-10.8) X10*3/uL Hgb 8.7 L 8.1 L (14.0-18.0) g/dl Hct 26.9 L 24.8 L (42.0-52.0) % Plt Count 296 266 (160-400) X10*3/uL BMP 03/30/22 03/31/22 18:38 06:48 Sodium 136 137 Potassium 3.7 4.1 Chloride 98 99 Carbon Dioxide 27 27 BUN 20 H 28 H Creatinine 1.88 H 2.58 H Calcium 8.4 8.4 Liver Function 03/30/22 Range/Units 18:38 Total Bilirubin 2.3 H (0.0-1.0) mg/dL Direct Bilirubin 1.7 H (0.0-0.5) mg/dL AST 198 H (5-37) U/L ALT 113 H (0-40) U/L Alkaline Phosphatase 285 H (39-117) U/L Albumin 2.3 L (3.5-5.0) g/dL All other labs normal. 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 use: without ferry terminal supervisor use Diabetes mellitus complication status: with kidney complications Diabetes mellitus complication detail: with chronic kidney disease Chronic kidney disease stage: stage 1 Qualified Code(s): E11.22 - Type 2 diabetes mellitus with diabetic chronic kidney disease; N18.1 - Chronic kidney disease, stage 1 Status: Acute Plan 76-year-old male patient with an extensive past medical history including end-stage renal disease, cardiovascular and peripheral vascular disease, diabetes mellitus, presenting with acute abdominal pain in the right upper quadrant with elevated liver function tests. Workup revealed a distended gallbladder with gallstones at the neck of the gallbladder. Elevated LFTs may be related to a Mirizzi's syndrome due to obstruction of the common duct from the gallstone at the neck of the gallbladder, although common duct stone is also possibility. Overall the patient seems to be a high risk for general anesthesia given his multiple comorbidities. Recommend GI consultation for the elevated liver function tests. A safer alternative may be an IR placed cholecystostomy tube. Time Spent With Patient Time: Total time managing care of this patient today ____ minutes. Procedures Date of Service Date of Service: 03/31/22
--- NOTE | 2022-03-31 08:57 | PM.CNNEP ---
History of Present Illness Reason for Consult Consult date: 03/31/22 Chief Complaint Chief complaint: Cholecystitis,splenic infarct History of Present Illness Narrative: 76 year old patient with history of ESRD presented with abdominal pain. He normally has dialysis Saturday and Saturday and had his last treatment yesterday. At the time of consultation he complains of abdominal pain but denies nausea, vomiting or diarrhea. Abdomen pelvic CT shows distended gallbladder containing sludge and stones with mild pericholecystic inflammatory changes low 1.2 cm stone in the region of the gallbladder neck, findings raise concern for acute cholecystitis.? Review of Systems Review of Systems 10 points ROS negative except for pertinent in HPI PMFSH Past Medical History Medical History Anemia in chronic kidney disease Below-knee amputation of left lower extremity Diabetes Diabetes mellitus, with long-term current use of insulin Diarrhea End stage renal disease End-stage renal disease on hemodialysis Fever of unknown origin High cholesterol History of leg amputation Hypertension Microalbuminuria Mixed hyperlipidemia PAD (peripheral artery disease) Preoperative cardiovascular examination Family History Family History Father Myocardial infarction Mother No problems noted. Surgical History Surgical History History of eye surgery History of laminectomy History of surgery History of surgery on arm S/P CABG x 4 S/P unilateral BKA (below knee amputation) Social History Social History Household Members: Children Housing: Apartment Do you presently have visiting nurse or other home services: Yes (nursing aid) Alcohol intake: unknown Patient Tobacco Use Status: Never used Tobacco Smoked in Last 30 Days: No e-Cigarette/Vaping Use: Never Used Second Hand Smoke Exposure: No Use of substances other than those prescribed or required for medical reasons: No Have you been hit, kicked, punched, or otherwise hurt by someone within the past year? If so, by whom?: No Do you feel safe in your current relationship?: No Is there a partner from a previous relationship who is making you feel unsafe now?: No Are you made to feel afraid or neglected: No Advance Directives: Yes Advance Directives on File: Yes Advance Directives Date on File: 06/15/21 Do you have thoughts of harming others: None Do you have a plan to hurt others: No Plan Recently lost weight without trying: No How much weight loss: Unsure Eating poorly because of decreased appetite: No Nutrition screen score: 2 Nutrition Risks: No Nutritional Risk Poor oral hygiene: No service: No Current occupational status: retired and disabled Cognitive needs: Yes Hearing needs: No Vision needs: No Meds Allergies Allergy/AdvReac Type Severity Reaction Status Date / Time lisinopril Allergy Intermediate hyperkalemi Verified 03/22/22 15:35 a lidocaine [From LIDOPRIL] Allergy Mild COUGH Verified 03/22/22 15:35 prilocaine [From LIDOPRIL] Allergy Mild COUGH Verified 03/22/22 15:35 canagliflozin [Invokana] AdvReac Mild back pain Verified 03/22/22 15:35 Hydralazine-HCTZ Allergy Unknown Unknown Uncoded 01/11/22 10:25 Active Medications: Current Medications Acetaminophen (Acetaminophen 325 Mg Tablet) 650 mg PO Q6H PRN PRN Reason: Pain, Mild (Pain Scale 1-3) Amlodipine Besylate (Amlodipine Besylate 5 Mg Tablet) 5 mg PO BEDTIME [facility]; Protocol Atorvastatin Calcium (Atorvastatin Calcium 40 Mg Tablet) 40 mg PO BEDTIME [facility] Bumetanide (Bumetanide 1 Mg Tablet) 1 mg PO DAILY [facility]; Protocol Carvedilol (Carvedilol 25 Mg Tablet) 25 mg PO BID [facility]; Protocol Dextrose (Dextrose 50 % 25 Gm/50 Ml Syringe) 25 gm IVPUSH Q15M PRN; Protocol PRN Reason: per Hypoglycemia Standing Ord. Docusate Sodium (Docusate Sodium 100 Mg Capsule) 100 mg PO DAILY PRN PRN Reason: Constipation Ergocalciferol (Ergocalciferol (Vitamin D2) 1,250 Mcg Capsule) 1,250 mcg PO FR@1000 [facility] Fenofibrate (Fenofibrate 160 Mg Tablet) 160 mg PO DAILY [facility] Ferrous Sulfate (Ferrous Sulfate 324 Mg Tablet.Dr) 324 mg PO TID [facility] Glucose (Glucose Gel 15 Gm Gel..Gram.) 15 gm PO Q15M PRN; Protocol PRN Reason: per Hypoglycemia Standing Ord. Heparin Sodium (Porcine) (Heparin Sodium,Porcine 5,000 Unit/Ml Vial) 5,000 unit SUBCUT Q12H [facility] Last Admin: 03/30/22 22:56 Dose: 5,000 unit Metronidazole (Flagyl) 500 mg in 100 mls @ 100 mls/hr IV Q8H [facility] Last Infusion: 03/31/22 07:30 Dose: Infused Ceftriaxone Sodium 1 gm/ (Sodium Chloride) 50 mls @ 100 mls/hr IV Q24H [facility] Last Infusion: 03/30/22 23:25 Dose: Infused Insulin Glargine (Insulin Glargine,Hum.Rec.Anlog 100 Unit/Ml 10 Ml Vial) 8 unit SUBCUT BID [facility] Insulin Human Lispro (Insulin Lispro 100 Unit/Ml 3 Ml Vial) 0 unit SUBCUT QIDACHS [facility]; Protocol Losartan Potassium (Losartan Potassium 50 Mg Tablet) 100 mg PO DAILY [facility]; Protocol Multivitamins/Vitamin C (Multivitamin Tablet) 1 tab PO DAILY [facility] Ondansetron HCl (Ondansetron Hcl 4 Mg/2 Ml Vial) 4 mg IVPUSH Q8H PRN PRN Reason: Nausea and Vomiting Oxycodone HCl (Oxycodone Hcl Immed Release 5 Mg Tablet) 5 mg PO Q6H PRN PRN Reason: Pain, Severe (Pain Scale 7-10) Sevelamer Carbonate (Sevelamer Carbonate Tablet 800 Mg Tablet) 1,600 mg PO TIDWM [facility] Sodium Chloride (0.9 % Sodium Chloride Flush 3 Ml Syringe) 3 ml IVFLUSH QSHIFT [facility] Last Admin: 03/31/22 07:28 Dose: 3 ml Ursodiol (Ursodiol 300 Mg Capsule) 300 mg PO BID [facility] Home Medications Medication Instructions Recorded Confirmed Last Taken Type sevelamer carbonate 800 mg tablet 1,600 mg PO TIDWM 01/22/20 03/30/22 03/30/22 History amlodipine 5 mg tablet 5 mg PO BEDTIME 06/01/21 03/30/22 03/30/22 History aspirin 81 mg tablet,delayed 1 tab PO DAILY 06/01/21 03/30/22 03/30/22 History release carvedilol 25 mg tablet 1 tab PO BID 06/01/21 03/30/22 03/30/22 History ursodiol 300 mg capsule 1 cap PO BID 06/01/21 03/30/22 03/30/22 History losartan 100 mg tablet 100 mg PO DAILY 01/23/22 03/30/22 03/30/22 History ergocalciferol (vitamin D2) 1,250 1,250 mcg PO FR@1000 03/30/22 03/30/22 Unknown History mcg (50,000 unit) capsule (Vitamin D2) tramadol 50 mg tablet 50 mg PO DAILY PRN Pain 03/30/22 03/30/22 Unknown History vitamin B complex and vitamin C 1 cap PO DAILY 03/30/22 03/30/22 03/30/22 History no.20-folic acid 1 mg capsule (Virt-Caps) Physical Exam Vital Signs: Last Vital Signs Temp 98.9 F 03/31/22 08:00 Pulse 64 03/31/22 08:00 Resp 16 03/31/22 08:00 BP 148/65 H 03/31/22 08:00 Pulse Ox 93 03/31/22 08:00 O2 Del Method 03/31/22 08:00 BMI result Body Mass Index 24.7 Const General: alert and awake HEENT Head: Yes normocephalic and Yes atraumatic Resp Auscultation: clear to auscultation bilaterally Cardio Heart sounds: S1 normal heart sound present and S2 normal heart sound present GI Palpation (GI): Soft to palpation and no guarding Extrem General: Yes edema Results Lab Results 03/31/22 06:48 03/31/22 06:48 Lab results: Chemistry 03/30/22 03/31/22 18:38 06:48 Sodium 136 137 Potassium 3.7 4.1 Carbon Dioxide 27 27 BUN 20 H 28 H Creatinine 1.88 H 2.58 H Calcium 8.4 8.4 Hematology 03/30/22 03/31/22 17:29 06:48 WBC 11.4 H 10.1 Hgb 8.7 L 8.1 L Plt Count 296 266 Assessment and Plan (1) ESRD (end stage renal disease): Status: Acute (2) Cholecystitis with cholelithiasis: Status: Acute (3) Anemia: Status: Acute Plan usually has HD m-w- at [place] dialysis unit admitted with cholecystitis REC HD per schedule renal diet DANIEL phosphate binders surgery consult IV Abx follow cultures Time Spent With Patient Time: Total time managing care of this patient today ____ minutes. Procedures Date of Service Date of Service: 03/31/22
[2022-03-31] MEDS: carvediloL 25 MG TABLET PO ×2 (09:20→19:45)
[2022-03-31] MEDS: Fenofibrate 160 MG TABLET PO (09:20)
[2022-03-31] MEDS: UrsodioL 300 MG CAPSULE PO ×2 (09:20→19:45)
[2022-03-31] MEDS: Ferrous Sulfate 324 MG TABLET.DR PO ×3 (09:20→19:45)
[2022-03-31] MEDS: Losartan Potassium 50 MG TABLET 100 MG PO (09:20)
[2022-03-31] MEDS: Bumetanide 1 MG TABLET PO (09:20)
[2022-03-31] MEDS: Sevelamer Carbonate Tablet 800 MG TABLET 1600 MG PO ×3 (09:20→16:45)
[2022-03-31] MEDS: Multivitamin TABLET 1 TAB PO (09:20)
[2022-03-31] MEDS: Insulin Glargine,Hum.rec.anlog 100 UNIT/ML 10 ML VIAL 8 UNIT SUBCUT ×2 (09:21→19:43)
[2022-03-31] MEDS: oxyCODONE HCl Immed Release 5 MG TABLET PO (09:30)
[2022-03-31] MEDS: Heparin Sodium,Porcine 5,000 UNIT/ML VIAL 5000 UNIT SUBCUT (11:32)
[2022-03-31 11:34] LABS: Glucose, Whole Blood 174 mg/dL (60-115)
[2022-03-31] MEDS: Insulin Lispro 100 UNIT/ML 3 ML VIAL SUBCUT (11:36)
--- NOTE | 2022-03-31 12:06 | HO.PM.IMPN ---
Subjective Subjective Date of Service: 03/31/22 Interval History: This history was taken in Czech from the patient. C/o epigastric + RUQ pain. No N/V. C/o diarrhea. No fever. Review of Systems Review of Systems: Yes all other systems are reviewed and are negative Physical Exam Vital Signs: Vital Signs: Last Vital Signs Temp 98.9 F 03/31/22 08:00 Pulse 64 03/31/22 08:00 Resp 16 03/31/22 08:00 BP 148/65 H 03/31/22 08:00 Pulse Ox 93 03/31/22 08:00 O2 Del Method 03/31/22 08:00 BMI result Body Mass Index 24.7 Gen: in no acute distress HEENT: sclera anicteric, moist mucus membranes Neck: supple Lungs: clear to auscultation bilaterally Heart: regular rate and rhythm, no murmurs Abd: soft, RUQ tender + Munoz sign present Ext: bilateral BKA Skin: warm/well-perfused Neuro: alert and oriented x3, no focal findings Psych: appropriate affect Objective Data Active Medications Acetaminophen (Acetaminophen 325 Mg Tablet) 650 mg PO Q6H PRN PRN Reason: Pain, Mild (Pain Scale 1-3) Amlodipine Besylate (Amlodipine Besylate 5 Mg Tablet) 5 mg PO BEDTIME [facility]; Protocol Atorvastatin Calcium (Atorvastatin Calcium 40 Mg Tablet) 40 mg PO BEDTIME [facility] Bumetanide (Bumetanide 1 Mg Tablet) 1 mg PO DAILY [facility]; Protocol Last Admin: 03/31/22 09:20 Dose: 1 mg Documented By: DARNELL Carvedilol (Carvedilol 25 Mg Tablet) 25 mg PO BID [facility]; Protocol Last Admin: 03/31/22 09:20 Dose: 25 mg Documented By: DARNELL Dextrose (Dextrose 50 % 25 Gm/50 Ml Syringe) 25 gm IVPUSH Q15M PRN; Protocol PRN Reason: per Hypoglycemia Standing Ord. Docusate Sodium (Docusate Sodium 100 Mg Capsule) 100 mg PO DAILY PRN PRN Reason: Constipation Ergocalciferol (Ergocalciferol (Vitamin D2) 1,250 Mcg Capsule) 1,250 mcg PO FR@1000 [facility] Fenofibrate (Fenofibrate 160 Mg Tablet) 160 mg PO DAILY [facility] Last Admin: 03/31/22 09:20 Dose: 160 mg Documented By: DARNELL Ferrous Sulfate (Ferrous Sulfate 324 Mg Tablet.) 324 mg PO TID [facility] Last Admin: 03/31/22 09:20 Dose: 324 mg Documented By: DARNELL Glucose (Glucose Gel 15 Gm Gel..Gram.) 15 gm PO Q15M PRN; Protocol PRN Reason: per Hypoglycemia Standing Ord. Heparin Sodium (Porcine) (Heparin Sodium,Porcine 5,000 Unit/Ml Vial) 5,000 unit SUBCUT Q12H [facility] Last Admin: 03/31/22 11:32 Dose: 5,000 unit Documented By: DARNELL Metronidazole (Flagyl) 500 mg in 100 mls @ 100 mls/hr IV Q8H [facility] Last Infusion: 03/31/22 07:30 Dose: 0 mls/hr Documented By: DARNELL Ceftriaxone Sodium 1 gm/ (Sodium Chloride) 50 mls @ 100 mls/hr IV Q24H [facility] Last Infusion: 03/30/22 23:25 Dose: 0 mls/hr Documented By: BALWINDER Insulin Glargine (Insulin Glargine,Hum.Rec.Anlog 100 Unit/Ml 10 Ml Vial) 8 unit SUBCUT BID [facility] Last Admin: 03/31/22 09:21 Dose: 8 unit Documented By: DARNELL Insulin Human Lispro (Insulin Lispro 100 Unit/Ml 3 Ml Vial) 0 unit SUBCUT QIDACHS [facility]; Protocol Last Admin: 03/31/22 11:36 Dose: 2 unit Documented By: DARNELL Losartan Potassium (Losartan Potassium 50 Mg Tablet) 100 mg PO DAILY [facility]; Protocol Last Admin: 03/31/22 09:20 Dose: 100 mg Documented By: DARNELL Multivitamins/Vitamin C (Multivitamin Tablet) 1 tab PO DAILY [facility] Last Admin: 03/31/22 09:20 Dose: 1 tab Documented By: DARNELL Ondansetron HCl (Ondansetron Hcl 4 Mg/2 Ml Vial) 4 mg IVPUSH Q8H PRN PRN Reason: Nausea and Vomiting Oxycodone HCl (Oxycodone Hcl Immed Release 5 Mg Tablet) 5 mg PO Q6H PRN PRN Reason: Pain, Severe (Pain Scale 7-10) Last Admin: 03/31/22 09:30 Dose: 5 mg Documented By: DARNELL Sevelamer Carbonate (Sevelamer Carbonate Tablet 800 Mg Tablet) 1,600 mg PO TIDWM [facility] Last Admin: 03/31/22 11:31 Dose: 1,600 mg Documented By: DARNELL Sodium Chloride (0.9 % Sodium Chloride Flush 3 Ml Syringe) 3 ml IVFLUSH QSHIFT [facility] Last Admin: 03/31/22 07:28 Dose: 3 ml Documented By: DARNELL Ursodiol (Ursodiol 300 Mg Capsule) 300 mg PO BID [facility] Last Admin: 03/31/22 09:20 Dose: 300 mg Documented By: DARNELL Labs 03/31/22 06:48 03/31/22 06:48 Labs: Laboratory Results - last 24 hr 03/30/22 03/30/22 03/30/22 16:43 17:29 18:38 MCV 97.1 MCH 31.4 MCHC 32.3 RDW 16.9 H Plt Count 296 MPV 11.2 Immature Gran % (Auto) 1.1 H Neut % (Auto) 88.3 H Lymph % (Auto) 4.9 L Randolph % (Auto) 3.3 Eos % (Auto) 2.0 Baso % (Auto) 0.4 Lymph # (Auto) 0.6 L Randolph # (Auto) 0.4 Eos # (Auto) 0.2 Baso # (Auto) 0.0 Abs Immat Gran (auto) 0.12 H Absolute Neuts (auto) 10.1 H Absolute Nucleated RBC 0.000 Nucleated RBC % (auto) 0.0 PT INR APTT Anion Gap 15 Estim Creat Clear Calc 29.5 Estimated GFR 35 POC Glucose Random Glucose 142 H Lactic Acid Calcium 8.4 Total Bilirubin 2.3 H Direct Bilirubin 1.7 H AST 198 H ALT 113 H Alkaline Phosphatase 285 H Troponin I High Sens C-Reactive Protein Total Protein 6.0 L Albumin 2.3 L Lipase 39 Influenza Type A (PCR) NEGATIVE Influenza Type B (PCR) NEGATIVE RSV RNA Qual (PCR) NEGATIVE SARS-CoV-2 RNA (RT-PCR) NEGATIVE 03/30/22 03/30/22 03/30/22 18:38 18:38 18:38 MCV MCH MCHC RDW Plt Count MPV Immature Gran % (Auto) Neut % (Auto) Lymph % (Auto) Randolph % (Auto) Eos % (Auto) Baso % (Auto) Lymph # (Auto) Randolph # (Auto) Eos # (Auto) Baso # (Auto) Abs Immat Gran (auto) Absolute Neuts (auto) Absolute Nucleated RBC Nucleated RBC % (auto) PT 18.9 H INR 1.6 H APTT 32.3 Anion Gap Estim Creat Clear Calc Estimated GFR POC Glucose Random Glucose Lactic Acid 0.8 Calcium Total Bilirubin Direct Bilirubin AST ALT Alkaline Phosphatase Troponin I High Sens 49.8 H C-Reactive Protein Total Protein Albumin Lipase Influenza Type A (PCR) Influenza Type B (PCR) RSV RNA Qual (PCR) SARS-CoV-2 RNA (RT-PCR) 03/31/22 03/31/22 03/31/22 06:48 06:48 06:48 MCV 98.0 MCH 32.0 MCHC 32.7 RDW 17.1 H Plt Count 266 MPV 11.5 Immature Gran % (Auto) 1.1 H Neut % (Auto) 84.6 H Lymph % (Auto) 6.5 L Randolph % (Auto) 4.6 Eos % (Auto) 2.5 Baso % (Auto) 0.7 Lymph # (Auto) 0.7 L Randolph # (Auto) 0.5 Eos # (Auto) 0.3 Baso # (Auto) 0.1 Abs Immat Gran (auto) 0.11 H Absolute Neuts (auto) 8.5 H Absolute Nucleated RBC 0.000 Nucleated RBC % (auto) 0.0 PT INR APTT Anion Gap 15 Estim Creat Clear Calc 21.5 Estimated GFR 24 POC Glucose Random Glucose 120 H Lactic Acid Calcium 8.4 Total Bilirubin Direct Bilirubin AST ALT Alkaline Phosphatase Troponin I High Sens 65.4 H C-Reactive Protein 13.76 H Total Protein Albumin Lipase Influenza Type A (PCR) Influenza Type B (PCR) RSV RNA Qual (PCR) SARS-CoV-2 RNA (RT-PCR) 03/31/22 03/31/22 08:07 11:30 MCV MCH MCHC RDW Plt Count MPV Immature Gran % (Auto) Neut % (Auto) Lymph % (Auto) Randolph % (Auto) Eos % (Auto) Baso % (Auto) Lymph # (Auto) Randolph # (Auto) Eos # (Auto) Baso # (Auto) Abs Immat Gran (auto) Absolute Neuts (auto) Absolute Nucleated RBC Nucleated RBC % (auto) PT INR APTT Anion Gap Estim Creat Clear Calc Estimated GFR POC Glucose 111 174 H Random Glucose Lactic Acid Calcium Total Bilirubin Direct Bilirubin AST ALT Alkaline Phosphatase Troponin I High Sens C-Reactive Protein Total Protein Albumin Lipase Influenza Type A (PCR) Influenza Type B (PCR) RSV RNA Qual (PCR) SARS-CoV-2 RNA (RT-PCR) Assessment and Plan (1) Cholecystitis with cholelithiasis: Status: Acute (2) Splenic infarct: Status: Acute Plan hospital d#2 76yo M with ESRD on HD, DM2, recent R BKA presenting with acute abdominal pain and found to have acute cholecystitis # acute cholecystitis with cholelithiasis - General surgery consulted, due to high operative risk, recommend IR cholecystostomy + ABX treatment, ceftriaxone + metronidazole 03/30-, GI consultation pending # splenic infarct - Vascular Surgery consultation, TTE, follow BCx # sacral decubitus ulcer - Wound Care consultation # ESRD on HD MWF - Nephrology consultation - sevelamer # PAD - statin, hold ASA for cholecystostomy # anemia of ESRD - Hb stable # HTN - continue carvedilol, amlodipine, losartan, bumetanide # DM2 - basal-bolus insulin # VTE ppx: UFH # dispo: TBD In my clinical judgment, the patient requires continued inpatient hospitalization for the following reasons: IV antibiotics + IR intervention Time Spent With Patient Time: Total time managing care of this patient today __45__ minutes. Quality Stroke Does the patient have a stroke diagnosis?: No VTE Prior VTE?: No VTE Risk Level:: Medical - moderate - high VTE Device Contraindication: Treatment Not Indicated VTE Drug Contraindication: N/A - Med Ordered
[2022-03-31 15:39] VITALS: BP 156/65; PULSE 63; RESP 16; TEMP 36.1; O2SAT 97
--- NOTE | 2022-03-31 15:43 | MHC.CM.PN ---
Number listed is patient's son, not patient's number. Son confirmed patient's daughter's number and name. This RNCM called lisandra who did not answer. Voice mail not indicated as a confidential voice mail, requested that Jose please return call to given number. CM to follow.
[2022-03-31 16:04] LABS: Glucose, Whole Blood 73 mg/dL (60-115)
--- NOTE | 2022-03-31 16:07 | MHC.CM.PN ---
Attempted to connect with son again via news operations manager. No answer on this attempt. Will reapproach.
[2022-03-31 19:16] VITALS: BP 146/61; PULSE 64; RESP 16; TEMP 36.2; O2SAT 95
[2022-03-31 19:32] LABS: Glucose, Whole Blood 140 mg/dL (60-115)
[2022-03-31] MEDS: amLODIPine Besylate 5 MG TABLET PO (19:44)
[2022-03-31] MEDS: Atorvastatin Calcium 40 MG TABLET PO (19:45)
[2022-03-31 22:21] VITALS: BP 134/77; PULSE 101; RESP 16; TEMP 36.4; O2SAT 98
[2022-03-31] MEDS: cefTRIAXone sodium 1 GM in 0.9 % Sodium Chloride 50 ML IV (22:28)
[2022-04-01] MEDS: Heparin Sodium,Porcine 5,000 UNIT/ML VIAL 5000 UNIT SUBCUT ×2 (00:05→11:31)
[2022-04-01 01:07] LABS: Glucose, Whole Blood 41 mg/dL (60-115)
[2022-04-01] MEDS: Dextrose 50 % 25 GM/50 ML SYRINGE IVPUSH (01:08)
[2022-04-01 01:33] LABS: Glucose, Whole Blood 206 mg/dL (60-115)
--- NOTE | 2022-04-01 02:05 | PC.NURSE ---
Addendum entered by Jennifer Muro RN 04/01/22 05:05: POC were checked Q1hr x3 as per Dr. Packer, and results are as follows, 144,142,140, Dr. Packer was updated. Original Note: Pt was heard yelling and seen confused at 0135, pt was weak and unable to answer appropriately, POC was 41, pt drank small amount of apple juice and was unable to continue drinking, prn Dextrose 50% 25 gms IV given, Dr. Packer was updated, repeat POC 206, pt was more conversant and alert after, Ochoa Moscoso wanted another POC 30mins after it was repeated, POC at [phone], Dr. Packer was made aware.
[2022-04-01 02:07] LABS: Glucose, Whole Blood 164 mg/dL (60-115)
[2022-04-01 03:08] LABS: Glucose, Whole Blood 144 mg/dL (60-115)
[2022-04-01 04:00] VITALS: BP 145/58; PULSE 53; RESP 18; TEMP 36.7; O2SAT 92
[2022-04-01 04:10] LABS: Glucose, Whole Blood 142 mg/dL (60-115)
[2022-04-01 05:03] LABS: Glucose, Whole Blood 140 mg/dL (60-115)
[2022-04-01 06:03] LABS: Hematocrit 23.2 % (42.0-52.0); Hemoglobin 7.6 g/dl (14.0-18.0); Mean Corpuscular HGB Conc 32.8 g/dl (31.0-36.0); Mean Corpuscular Hemoglobin 32.3 pg (27.0-33.0); Mean Corpuscular Volume 98.7 fL (80.0-98.0); Mean Platelet Volume 11.6 fL (9.4-12.4); Platelet Count 244 X10*3/uL (160-400); Red Blood Count 2.35 X10*6/uL (4.60-5.80); White Blood Count 10.7 X10*3/uL (4.8-10.8)
[2022-04-01 06:14] LABS: INTERNATIONAL NORM RATIO 1.8 (0.9-1.1); Prothrombin Time 21.5 SEC (10.0-13.1)
[2022-04-01 06:17] LABS: Partial Thromboplastin Time 35.3 SEC (26.0-36.4)
[2022-04-01] MEDS: metroNIDAZOLE/NS 500 MG/100 ML PIGGYBACK 100 MG IV ×3 (06:22→23:20)
[2022-04-01 06:49] LABS: Alanine Aminotransferase 65 U/L (0-40); Albumin Level 2.1 g/dL (3.5-5.0); Alkaline Phosphatase 228 U/L (39-117); Anion Gap 14 (12-20); Aspartate Amino Transferase 64 U/L (5-37); Bilirubin Total 0.9 mg/dL (0.0-1.0); Blood Urea Nitrogen 41 mg/dL (9-16); Calcium 8.3 mg/dL (8.4-10.2); Carbon Dioxide 28 mmol/L (22-29); Chloride 96 mmol/L (96-108); Creatinine Clr Calc Pharmacy 15.9; Estimated Glomerular Filt Rate 17; Glucose Random 134 mg/dL (60-115); Sodium 134 mmol/L (135-145); Total Protein 5.4 g/dL (6.5-8.0)
[2022-04-01] MEDS: 0.9 % Sodium Chloride Flush 3 ML SYRINGE IVFLUSH ×3 (07:43→21:18)
--- NOTE | 2022-04-01 07:45 | P.PNNP_ITS ---
Subjective Subjective Date of Service: 04/01/22 Interval history: seen and examined denies abdominal pain this morning no N/V/ diarrhea Physical Exam Vital Signs: Vital Signs: Last Vital Signs Temp 98.0 F 04/01/22 04:00 Pulse 53 04/01/22 04:00 Resp 18 04/01/22 04:00 BP 145/58 H 04/01/22 04:00 Pulse Ox 92 04/01/22 04:00 O2 Del Method 04/01/22 04:00 BMI result Body Mass Index 24.7 Const: General: alert and awake HEENT: Head: Yes normocephalic and Yes atraumatic Resp: Auscultation: clear to auscultation bilaterally Cardio: Heart sounds: S1 normal heart sound present and S2 normal heart sound present GI: Palpation (GI): Soft to palpation and no guarding Extrem: General: Yes edema Objective Data Labs 04/01/22 05:06 04/01/22 05:06 Labs: Laboratory Results - last 24 hr 03/31/22 03/31/22 03/31/22 06:48 08:07 11:30 WBC RBC Hgb Hct MCV MCH MCHC RDW Plt Count MPV Absolute Nucleated RBC Nucleated RBC % (auto) PT INR APTT Sodium Potassium Chloride Carbon Dioxide Anion Gap BUN Creatinine Estim Creat Clear Calc Estimated GFR POC Glucose 111 174 H Random Glucose Calcium Total Bilirubin AST ALT Alkaline Phosphatase C-Reactive Protein 13.76 H Total Protein Albumin 03/31/22 03/31/22 04/01/22 15:43 19:19 01:04 WBC RBC Hgb Hct MCV MCH MCHC RDW Plt Count MPV Absolute Nucleated RBC Nucleated RBC % (auto) PT INR APTT Sodium Potassium Chloride Carbon Dioxide Anion Gap BUN Creatinine Estim Creat Clear Calc Estimated GFR POC Glucose 73 140 H 41 L* Random Glucose Calcium Total Bilirubin AST ALT Alkaline Phosphatase C-Reactive Protein Total Protein Albumin 04/01/22 04/01/22 04/01/22 01:29 02:03 03:05 WBC RBC Hgb Hct MCV MCH MCHC RDW Plt Count MPV Absolute Nucleated RBC Nucleated RBC % (auto) PT INR APTT Sodium Potassium Chloride Carbon Dioxide Anion Gap BUN Creatinine Estim Creat Clear Calc Estimated GFR POC Glucose 206 H 164 H 144 H Random Glucose Calcium Total Bilirubin AST ALT Alkaline Phosphatase C-Reactive Protein Total Protein Albumin 04/01/22 04/01/22 04/01/22 04:06 04:59 05:06 WBC 10.7 RBC 2.35 L Hgb 7.6 L Hct 23.2 L MCV 98.7 H MCH 32.3 MCHC 32.8 RDW 17.0 H Plt Count 244 MPV 11.6 Absolute Nucleated RBC 0.000 Nucleated RBC % (auto) 0.0 PT INR APTT Sodium Potassium Chloride Carbon Dioxide Anion Gap BUN Creatinine Estim Creat Clear Calc Estimated GFR POC Glucose 142 H 140 H Random Glucose Calcium Total Bilirubin AST ALT Alkaline Phosphatase C-Reactive Protein Total Protein Albumin 04/01/22 04/01/22 05:06 05:06 WBC RBC Hgb Hct MCV MCH MCHC RDW Plt Count MPV Absolute Nucleated RBC Nucleated RBC % (auto) PT 21.5 H INR 1.8 H APTT 35.3 Sodium 134 L Potassium 4.0 Chloride 96 Carbon Dioxide 28 Anion Gap 14 BUN 41 H Creatinine 3.49 H Estim Creat Clear Calc 15.9 Estimated GFR 17 POC Glucose Random Glucose 134 H Calcium 8.3 L Total Bilirubin 0.9 AST 64 H ALT 65 H Alkaline Phosphatase 228 H C-Reactive Protein Total Protein 5.4 L Albumin 2.1 L Microbiology Microbiology Results: Microbiology 03/30/22 18:38 Blood - Venous Blood Culture - Preliminary No growth after 24 hours. 03/30/22 18:38 Blood - Venous Blood Culture - Preliminary No growth after 24 hours. Procedures Date of Service Date of Service: 04/01/22 Assessment & Plan Assessment and plan (1) ESRD (end stage renal disease): Status: Acute (2) Cholecystitis with cholelithiasis: Status: Acute (3) Anemia: Status: Acute Plan usually has HD m-w- at [place] dialysis unit admitted with cholecystitis surgery recommend IR cholecystostomy + ABX treatment due to high operative risk REC HD tomorrow renal diet DANIEL phosphate binders surgery and GI f/u IV Abx follow cultures Time Spent With Patient Time: Total time managing care of this patient today ____ minutes. Progress Note: Quality Stroke Does the patient have a stroke diagnosis?: No
[2022-04-01 08:00] VITALS: BP 135/62; PULSE 59; RESP 20; TEMP 36.2; O2SAT 92
[2022-04-01] MEDS: Bumetanide 1 MG TABLET PO (08:21)
[2022-04-01] MEDS: UrsodioL 300 MG CAPSULE PO ×2 (08:21→21:14)
[2022-04-01] MEDS: Ferrous Sulfate 324 MG TABLET.DR PO ×3 (08:21→21:13)
[2022-04-01] MEDS: Sevelamer Carbonate Tablet 800 MG TABLET 1600 MG PO ×3 (08:22→17:05)
[2022-04-01] MEDS: Fenofibrate 160 MG TABLET PO (08:22)
[2022-04-01] MEDS: Multivitamin TABLET 1 TAB PO (08:22)
[2022-04-01] MEDS: Losartan Potassium 50 MG TABLET 100 MG PO (08:22)
[2022-04-01 08:23] LABS: Glucose, Whole Blood 109 mg/dL (60-115)
[2022-04-01] MEDS: Phytonadione (Vit K1) Oral 10 MG/ML AMPUL PO (08:23)
[2022-04-01] MEDS: oxyCODONE HCl Immed Release 5 MG TABLET PO (11:33)
[2022-04-01 11:46] LABS: Glucose, Whole Blood 142 mg/dL (60-115)
--- NOTE | 2022-04-01 12:18 | P.PNIM_ITS ---
Subjective Subjective Date of Service: 04/01/22 Interval History: This history was taken in Maltese from the patient. minimal RUQ pain, no N/V no fever Review of Systems Review of Systems: Yes all other systems are reviewed and are negative Physical Exam Vital Signs: Vital Signs: Last Vital Signs Temp 97.2 F 04/01/22 08:00 Pulse 59 04/01/22 08:00 Resp 20 04/01/22 08:00 BP 135/62 04/01/22 08:00 Pulse Ox 92 04/01/22 08:00 O2 Del Method 04/01/22 08:00 BMI result Body Mass Index 24.7 Const: Other: Gen: in no acute distress HEENT: sclera anicteric, moist mucus membranes Neck: supple Lungs: clear to auscultation bilaterally Heart: regular rate and rhythm, no murmurs Abd: soft, RUQ tender + Munoz sign present Ext: bilateral BKA Skin: warm/well-perfused Neuro: alert and oriented x3, no focal findings Psych: appropriate affect Objective Data Active Medications Acetaminophen (Acetaminophen 325 Mg Tablet) 650 mg PO Q6H PRN PRN Reason: Pain, Mild (Pain Scale 1-3) Amlodipine Besylate (Amlodipine Besylate 5 Mg Tablet) 5 mg PO BEDTIME [facility]; Protocol Last Admin: 03/31/22 19:44 Dose: 5 mg Documented By: LORETTA Comments: BP 146/61 H 64 Atorvastatin Calcium (Atorvastatin Calcium 40 Mg Tablet) 40 mg PO BEDTIME [facility] Last Admin: 03/31/22 19:45 Dose: 40 mg Documented By: LORETTA Bumetanide (Bumetanide 1 Mg Tablet) 1 mg PO DAILY [facility]; Protocol Last Admin: 04/01/22 08:21 Dose: 1 mg Documented By: DARNELL Carvedilol (Carvedilol 25 Mg Tablet) 25 mg PO BID [facility]; Protocol Last Admin: 04/01/22 08:22 Dose: Not Given Documented By: DARNELL Non-Admin Reason: Decreased Heart Rate Dextrose (Dextrose 50 % 25 Gm/50 Ml Syringe) 25 gm IVPUSH Q15M PRN; Protocol PRN Reason: per Hypoglycemia Standing Ord. Last Admin: 04/01/22 01:08 Dose: 25 gm Documented By: LORETTA Docusate Sodium (Docusate Sodium 100 Mg Capsule) 100 mg PO DAILY PRN PRN Reason: Constipation Ergocalciferol (Ergocalciferol (Vitamin D2) 1,250 Mcg Capsule) 1,250 mcg PO FR@1000 [facility] Fenofibrate (Fenofibrate 160 Mg Tablet) 160 mg PO DAILY [facility] Last Admin: 04/01/22 08:22 Dose: 160 mg Documented By: DARNELL Ferrous Sulfate (Ferrous Sulfate 324 Mg Tablet.Dr) 324 mg PO TID [facility] Last Admin: 04/01/22 08:21 Dose: 324 mg Documented By: DARNELL Glucose (Glucose Gel 15 Gm Gel..Gram.) 15 gm PO Q15M PRN; Protocol PRN Reason: per Hypoglycemia Standing Ord. Heparin Sodium (Porcine) (Heparin Sodium,Porcine 5,000 Unit/Ml Vial) 5,000 unit SUBCUT Q12H [facility] Last Admin: 04/01/22 11:31 Dose: 5,000 unit Documented By: DARNELL Metronidazole (Flagyl) 500 mg in 100 mls @ 100 mls/hr IV Q8H [facility] Last Infusion: 04/01/22 07:43 Dose: 0 mls/hr Documented By: DARNELL Ceftriaxone Sodium 1 gm/ (Sodium Chloride) 50 mls @ 100 mls/hr IV Q24H [facility] Last Infusion: 03/31/22 23:07 Dose: 0 mls/hr Documented By: LORETTA Insulin Glargine (Insulin Glargine,Hum.Rec.Anlog 100 Unit/Ml 10 Ml Vial) 8 unit SUBCUT BEDTIME [facility] Insulin Human Lispro (Insulin Lispro 100 Unit/Ml 3 Ml Vial) 0 unit SUBCUT QIDACHS [facility]; Protocol Last Admin: 04/01/22 11:50 Dose: Not Given Documented By: DARNELL Non-Admin Reason: No Insulin Coverage Losartan Potassium (Losartan Potassium 50 Mg Tablet) 100 mg PO DAILY [facility]; Protocol Last Admin: 04/01/22 08:22 Dose: 100 mg Documented By: DARNELL Multivitamins/Vitamin C (Multivitamin Tablet) 1 tab PO DAILY [facility] Last Admin: 04/01/22 08:22 Dose: 1 tab Documented By: DARNELL Ondansetron HCl (Ondansetron Hcl 4 Mg/2 Ml Vial) 4 mg IVPUSH Q8H PRN PRN Reason: Nausea and Vomiting Oxycodone HCl (Oxycodone Hcl Immed Release 5 Mg Tablet) 5 mg PO Q6H PRN PRN Reason: Pain, Severe (Pain Scale 7-10) Last Admin: 04/01/22 11:33 Dose: 5 mg Documented By: DARNELL Sevelamer Carbonate (Sevelamer Carbonate Tablet 800 Mg Tablet) 1,600 mg PO TIDWM [facility] Last Admin: 04/01/22 11:33 Dose: 1,600 mg Documented By: DARNELL Sodium Chloride (0.9 % Sodium Chloride Flush 3 Ml Syringe) 3 ml IVFLUSH QSHIFT [facility] Last Admin: 04/01/22 07:43 Dose: 3 ml Documented By: DARNELL Ursodiol (Ursodiol 300 Mg Capsule) 300 mg PO BID [facility] Last Admin: 04/01/22 08:21 Dose: 300 mg Documented By: DARNELL Labs 04/01/22 05:06 04/01/22 05:06 Labs: Laboratory Results - last 24 hr 03/31/22 03/31/22 04/01/22 15:43 19:19 01:04 MCV MCH MCHC RDW Plt Count MPV Absolute Nucleated RBC Nucleated RBC % (auto) PT INR APTT Anion Gap Estim Creat Clear Calc Estimated GFR POC Glucose 73 140 H 41 L* Random Glucose Calcium Total Bilirubin AST ALT Alkaline Phosphatase Total Protein Albumin 04/01/22 04/01/22 04/01/22 01:29 02:03 03:05 MCV MCH MCHC RDW Plt Count MPV Absolute Nucleated RBC Nucleated RBC % (auto) PT INR APTT Anion Gap Estim Creat Clear Calc Estimated GFR POC Glucose 206 H 164 H 144 H Random Glucose Calcium Total Bilirubin AST ALT Alkaline Phosphatase Total Protein Albumin 04/01/22 04/01/22 04/01/22 04:06 04:59 05:06 MCV 98.7 H MCH 32.3 MCHC 32.8 RDW 17.0 H Plt Count 244 MPV 11.6 Absolute Nucleated RBC 0.000 Nucleated RBC % (auto) 0.0 PT INR APTT Anion Gap Estim Creat Clear Calc Estimated GFR POC Glucose 142 H 140 H Random Glucose Calcium Total Bilirubin AST ALT Alkaline Phosphatase Total Protein Albumin 04/01/22 04/01/22 04/01/22 05:06 05:06 07:59 MCV MCH MCHC RDW Plt Count MPV Absolute Nucleated RBC Nucleated RBC % (auto) PT 21.5 H INR 1.8 H APTT 35.3 Anion Gap 14 Estim Creat Clear Calc 15.9 Estimated GFR 17 POC Glucose 109 Random Glucose 134 H Calcium 8.3 L Total Bilirubin 0.9 AST 64 H ALT 65 H Alkaline Phosphatase 228 H Total Protein 5.4 L Albumin 2.1 L 04/01/22 11:38 MCV MCH MCHC RDW Plt Count MPV Absolute Nucleated RBC Nucleated RBC % (auto) PT INR APTT Anion Gap Estim Creat Clear Calc Estimated GFR POC Glucose 142 H Random Glucose Calcium Total Bilirubin AST ALT Alkaline Phosphatase Total Protein Albumin Microbiology Microbiology Results: Microbiology 03/30/22 18:38 Blood Culture - Preliminary Blood - Venous No growth after 24 hours. 03/30/22 18:38 Blood Culture - Preliminary Blood - Venous No growth after 24 hours. Assessment and Plan (1) Cholecystitis with cholelithiasis: Status: Acute (2) Splenic infarct: Status: Acute Plan hospital d#3 76yo M with ESRD on HD, DM2, recent R BKA presenting with acute abdominal pain and found to have acute cholecystitis # acute cholecystitis with cholelithiasis - General surgery consulted, due to high operative risk, recommend IR cholecystostomy [scheduled for 04/02] + ABX treatment, ceftriaxone + metronidazole 03/30- # splenic infarct - Vascular Surgery consultation, TTE, follow BCx # sacral decubitus ulcer - Wound Care consultation # ESRD on HD MWF - Nephrology consulted - sevelamer # PAD - statin, hold ASA for cholecystostomy # anemia of ESRD - Hb stable # HTN - continue carvedilol, amlodipine, losartan, bumetanide # DM2 - basal-bolus insulin # VTE ppx: UFH # dispo: TBD In my clinical judgment, the patient requires continued inpatient hospitalization for the following reasons: IV antibiotics + IR intervention Time Spent With Patient Time: Total time managing care of this patient today __35__ minutes. Quality Stroke Does the patient have a stroke diagnosis?: No VTE Prior VTE?: No VTE Risk Level:: Medical - moderate - high VTE Device Contraindication: Treatment Not Indicated VTE Drug Contraindication: N/A - Med Ordered
[2022-04-01 15:22] VITALS: BP 164/68; PULSE 61; RESP 16; TEMP 36; O2SAT 92
--- NOTE | 2022-04-01 15:52 | MHC.CM.PN ---
CM CALLED PTS DAUGHTERJAMES [phone] SHE REPORTS THE PT LIVES WITH HIS SON AND A ROOM MATE PT IS NOW TOTALLY DEPENDENT FOR TRANSFERS AND MOST CARE HE USES A WHEEL CHAIR AND IS WAITING FOR A [employer]LBY LIFT PT HAS DAILY [facility] SERVICES WITH SOME NIGHT HOURS PT CURRENTLY HAS DAILY [facility] SERVICES [facility] CARE HE IS COVID VAX AND BOOSTED HCP IS ON FILE PCP: MARJ LOMAS IMM DELIVERED, COPY LEFT AT BEDSIDE PER DISCUSSION DCP: HOME [facility]UME [facility] TRANSPORT
[2022-04-01 16:16] LABS: Glucose, Whole Blood 160 mg/dL (60-115)
[2022-04-01 20:00] VITALS: BP 134/57; PULSE 70; RESP 17; TEMP 36.8; O2SAT 95
[2022-04-01 20:45] LABS: Glucose, Whole Blood 133 mg/dL (60-115)
[2022-04-01] MEDS: amLODIPine Besylate 5 MG TABLET PO (21:13)
[2022-04-01] MEDS: Atorvastatin Calcium 40 MG TABLET PO (21:13)
[2022-04-01] MEDS: carvediloL 25 MG TABLET PO (21:14)
[2022-04-01] MEDS: Insulin Glargine,Hum.rec.anlog 100 UNIT/ML 10 ML VIAL 8 UNIT SUBCUT (21:14)
[2022-04-01] MEDS: cefTRIAXone sodium 1 GM in 0.9 % Sodium Chloride 50 ML IV (22:48)
[2022-04-02] VITALS (10 sets, daily range): BP systolic 118–165; BP diastolic 34–67; PULSE 51–60; RESP 16–22; TEMP 36–36.6; O2SAT 93–95; BMI 24.7
[2022-04-02] MEDS: metroNIDAZOLE/NS 500 MG/100 ML PIGGYBACK 100 MG IV ×2 (06:23→18:02)
[2022-04-02 06:44] LABS: INTERNATIONAL NORM RATIO 1.6 (0.9-1.1); Prothrombin Time 18.7 SEC (10.0-13.1)
[2022-04-02 06:56] LABS: Hematocrit 24.4 % (42.0-52.0); Hemoglobin 8.1 g/dl (14.0-18.0); Mean Corpuscular HGB Conc 33.2 g/dl (31.0-36.0); Mean Corpuscular Hemoglobin 32.1 pg (27.0-33.0); Mean Corpuscular Volume 96.8 fL (80.0-98.0); Mean Platelet Volume 12.2 fL (9.4-12.4); Platelet Count 282 X10*3/uL (160-400); Red Blood Count 2.52 X10*6/uL (4.60-5.80); Red Cell Distribution Width 17.2 % (11.0-16.0); White Blood Count 11.9 X10*3/uL (4.8-10.8)
--- NOTE | 2022-04-02 07:00 | CA_ITS ---
Transthoracic Echocardiogram Patient (Last, First, Middle): Jean-Pierre Nunes, Gender: Male Date of : 1945 Age: 76 Procedure Date: 04/02/2022 Procedure Type: Transthoracic Echocardiogram Location: S3E Height: 165.1 cm Weight: 67.13 kg BSA: 1.74 m2 Heart Rate: 54 bpm BP: 152 / 67 mmHg Electronics Scale Tester: SB Referring MD: Juliet Linder MD Symptoms: splenic infarct- embolic source? Study Quality: Adequate w contrast ECG Rhythm: Bradycardia Conclusions: - Normal left ventricular cavity size. There is mildly increased left ventricular wall thickness. The left ventricular systolic function is mildly decreased. The visually estimated ejection fraction is between 40-45%. - The basal inferior and mid inferior segments are akinetic. - Mildly increased right ventricular cavity size. There is moderate to severely decreased right ventricular systolic function. - There is mild aortic valve stenosis. - The right ventricular systolic pressure is 40 mmHg. Mildly elevated right atrial pressure. Mild pulmonary hypertension is present. Findings Procedure Information Contrast agent, definity, is being given per protocol without apparent complications. Left Ventricle Normal left ventricular cavity size. There is mildly increased left ventricular wall thickness. The left ventricular systolic function is mildly decreased. The visually estimated ejection fraction is between 40-45%. There is evidence of regional wall motion abnormalities. Diastolic function is indeterminate on the basis of available data. There is moderate septal asymmetric hypertrophy. Wall Motion Rest Echo Findings The basal inferior and mid inferior segments are akinetic. Right Ventricle Mildly increased right ventricular cavity size. There is moderate to severely decreased right ventricular systolic function. Atria The left atrium is mildly dilated. The right atrium is normal in size. Aortic Valve There is mild calcification of the aortic valve. There is mild thickening of the aortic valve. There is mild aortic valve stenosis. There is no aortic valve regurgitation. Mitral Valve There is severe mitral annular calcification. There is mild mitral valve regurgitation. Pulmonic Valve Normal pulmonic valve structure and function. There is no pulmonic valve regurgitation. Tricuspid Valve Normal tricuspid valve structure. There is mild tricuspid valve regurgitation. The right ventricular systolic pressure is 40 mmHg. Mildly elevated right atrial pressure. Mild pulmonary hypertension is present. Great Vessels All visible segments of the aorta are normal in size. Venous The inferior vena cava is dilated and collapses less than 50% with inspiration. Pericardium/Pleural There is no evidence of pericardial effusion. Prior Study Comparison Changes noted compared to prior study dated: 12/24/2017. EF 40-45%, inferior wall akinesis and RV dysfunction. Measurements 2D Linear Measurements IVSd: 1.43 0.6-0.9/0.6-1.0 cm LVIDd: 5.13 3.9-5.3/4.2-5.9 cm LVIDd Index: 2.95 2.4-3.2/2.2-3.1 cm/m2 LVIDs: 4.13 2.0-3.6 cm LVPWd: 1.28 0.7-1.1 cm LA Diam: 3.70 2.7-3.8/3.0-4.0 cm LAIDs Index: 2.13 1.5-2.3 cm/m2 LV Mass: 360.76 67-162/88-224 g LV Mass Index: 207.33 43-95/49-115 g/m2 LVOT Diam: 2.10 3.0+(-)1.3 cm 2D Systolic Function EF 4C: 48.00 >55% EF 2C: 50.70 >55% EF BiP: 49.20 >55% Mitral Valve MV Pk E: 1.42 MV PK A: 0.75 MV Decel Time: 180.00 E/A: 1.90 E'Lateral: 4.56 E'Medial: 2.62 E/E' Med: 54.20 E/E' Lat: 31.10 PHT: 53.00 MVA PHT: 4.15 Decel [place]: 7.92 Aortic Valve AoV Pk Kirk: 1.99 AoV Mn Kirk: 1.41 AoV VTI: 0.54 AoV Pk Grad: 16.00 Aov Mn Grad: 9.00 ROSI Cont.VTI: 1.12 LVOT LVOT Pk Kirk: 0.72 LVOT Mn Kirk: 0.47 LVOT VTI: 0.18 LVOT Pk Grad: 2.00 LVOT Mn Grad: 1.00 LVOT Diam: 2.10 LVOT Area: 3.46 Diastolic Function MV Pk E: 1.42 MV Pk A: 0.75 E/A: 1.90 E'Medial: 2.62 E/E' Med: 54.20 E' Laterial: 4.56 E/E' Lat: 31.10 Right Ventricle TAPSE (mm): 9.60 TVS' Kirk: 5.81 Tricuspid Valve TR Pk Kirk: 2.80 TR Pk Grad: 31.00 RA Press: 8.00 RVSP: 40.00 Great Vessels Aorta Sinus of Valsalva: 3.20 2.0-3.5 cm Ao Asc: 3.10 2.1-3.4 cm Pulmonary Valve PV Pk Kirk: 0.57 Peak PV Grad: 1.00 Updated in Other Vendor System with Status of Final Maninder Villagomez MD electronically signed on 04/02/2022 12:34:03 PM with status of Final
[2022-04-02 07:09] LABS: Anion Gap 19 (12-20); Blood Urea Nitrogen 56 mg/dL (9-16); C Reactive Protein 12.41 mg/dL (< or = 0.50); Calcium 8.2 mg/dL (8.4-10.2); Carbon Dioxide 24 mmol/L (22-29); Chloride 97 mmol/L (96-108); Creatinine Clr Calc Pharmacy 12.7; Estimated Glomerular Filt Rate 13; Glucose Random 46 mg/dL (60-115); Potassium 4.7 mmol/L (3.3-5.1); Sodium 135 mmol/L (135-145)
[2022-04-02 07:21] LABS: Glucose, Whole Blood 46 mg/dL (60-115)
[2022-04-02] MEDS: Dextrose 50 % 25 GM/50 ML SYRINGE IVPUSH ×2 (07:23→13:53)
[2022-04-02] MEDS: 0.9 % Sodium Chloride Flush 3 ML SYRINGE IVFLUSH ×2 (07:31→20:52)
[2022-04-02 07:55] LABS: Glucose, Whole Blood 142 mg/dL (60-115)
[2022-04-02 08:45] LABS: Glucose Random 113 mg/dL (60-115)
--- NOTE | 2022-04-02 10:21 | PM.PNNEP ---
Subjective Subjective Date of Service: 04/03/22 Interval history: Events noted Hd on saturday Physical Exam Vital Signs: Vital Signs: Last Vital Signs Temp 97.8 F 04/02/22 08:00 Pulse 58 04/02/22 08:00 Resp 17 04/02/22 08:00 BP 134/60 04/02/22 08:00 Pulse Ox 93 04/02/22 08:00 O2 Del Method 04/02/22 08:00 BMI result Body Mass Index 24.7 Const: General: alert and awake HEENT: Head: Yes normocephalic and Yes atraumatic Resp: Auscultation: clear to auscultation bilaterally Cardio: Heart sounds: S1 normal heart sound present and S2 normal heart sound present GI: Palpation (GI): Soft to palpation and no guarding Extrem: General: Yes edema Objective Data Labs 04/02/22 06:00 04/02/22 08:29 Labs: Laboratory Results - last 24 hr 04/01/22 04/01/22 04/01/22 11:38 15:23 20:41 WBC RBC Hgb Hct MCV MCH MCHC RDW Plt Count MPV Absolute Nucleated RBC Nucleated RBC % (auto) PT INR Sodium Potassium Chloride Carbon Dioxide Anion Gap BUN Creatinine Estim Creat Clear Calc Estimated GFR POC Glucose 142 H 160 H 133 H Random Glucose Calcium C-Reactive Protein 04/02/22 04/02/22 04/02/22 06:00 06:00 06:00 WBC 11.9 H RBC 2.52 L Hgb 8.1 L Hct 24.4 L MCV 96.8 MCH 32.1 MCHC 33.2 RDW 17.2 H Plt Count 282 MPV 12.2 Absolute Nucleated RBC 0.000 Nucleated RBC % (auto) 0.0 PT 18.7 H INR 1.6 H Sodium 135 Potassium 4.7 Chloride 97 Carbon Dioxide 24 Anion Gap 19 BUN 56 H Creatinine 4.37 H* Estim Creat Clear Calc 12.7 Estimated GFR 13 POC Glucose Random Glucose 46 L* Calcium 8.2 L C-Reactive Protein 12.41 H 04/02/22 04/02/22 04/02/22 07:18 07:51 08:29 WBC RBC Hgb Hct MCV MCH MCHC RDW Plt Count MPV Absolute Nucleated RBC Nucleated RBC % (auto) PT INR Sodium Potassium Chloride Carbon Dioxide Anion Gap BUN Creatinine Estim Creat Clear Calc Estimated GFR POC Glucose 46 L* 142 H Random Glucose 113 Calcium C-Reactive Protein Microbiology Microbiology Results: Microbiology 03/30/22 18:38 Blood - Venous Blood Culture - Preliminary No growth after 48 hours. 03/30/22 18:38 Blood - Venous Blood Culture - Preliminary No growth after 48 hours. Procedures Date of Service Date of Service: 04/02/22 Assessment & Plan Assessment and plan (1) ESRD (end stage renal disease): Status: Acute (2) Cholecystitis with cholelithiasis: Status: Acute (3) Anemia: Status: Acute Plan ESRD No s/s of uremia usually has HD m-w- at [place] dialysis unit cholecystitis surgery recommend IR cholecystostomy + ABX treatment due to high operative risk REC HD per protocol renal diet DANIEL phosphate binders surgery and GI f/u IV Abx follow cultures Time Spent With Patient Time: Total time managing care of this patient today ____ minutes. Progress Note: Quality Stroke Does the patient have a stroke diagnosis?: No
--- NOTE | 2022-04-02 10:32 | HO.PM.IMPN ---
Subjective Subjective Date of Service: 04/02/22 Interval History: This history was taken in Latvian from the patient. RUQ pain improved No N/V Hypoglycemic this AM, resolved after IV D50 NPO for cholecystotomy tube Review of Systems Review of Systems: Yes all other systems are reviewed and are negative Physical Exam Vital Signs: Vital Signs: Last Vital Signs Temp 97.8 F 04/02/22 08:00 Pulse 58 04/02/22 08:00 Resp 17 04/02/22 08:00 BP 134/60 04/02/22 08:00 Pulse Ox 93 04/02/22 08:00 O2 Del Method 04/02/22 08:00 BMI result Body Mass Index 24.7 Const: Other: Gen: in no acute distress HEENT: sclera anicteric, moist mucus membranes Neck: supple Lungs: clear to auscultation bilaterally Heart: regular rate and rhythm, no murmurs Abd: soft, RUQ tender + Munoz sign present Ext: bilateral BKA Skin: warm/well-perfused Neuro: alert and oriented x3, no focal findings Psych: appropriate affect Objective Data Active Medications Acetaminophen (Acetaminophen 325 Mg Tablet) 650 mg PO Q6H PRN PRN Reason: Pain, Mild (Pain Scale 1-3) Amlodipine Besylate (Amlodipine Besylate 5 Mg Tablet) 5 mg PO BEDTIME [facility]; Protocol Last Admin: 04/01/22 21:13 Dose: 5 mg Documented By: SHERITA Atorvastatin Calcium (Atorvastatin Calcium 40 Mg Tablet) 40 mg PO BEDTIME [facility] Last Admin: 04/01/22 21:13 Dose: 40 mg Documented By: SHERITA Bumetanide (Bumetanide 1 Mg Tablet) 1 mg PO DAILY [facility]; Protocol Last Admin: 04/02/22 08:03 Dose: Not Given Documented By: SOM Non-Admin Reason: NPO Carvedilol (Carvedilol 25 Mg Tablet) 25 mg PO BID [facility]; Protocol Last Admin: 04/02/22 08:04 Dose: Not Given Documented By: SOM Non-Admin Reason: NPO Dextrose (Dextrose 50 % 25 Gm/50 Ml Syringe) 25 gm IVPUSH Q15M PRN; Protocol PRN Reason: per Hypoglycemia Standing Ord. Last Admin: 04/02/22 07:23 Dose: 25 gm Documented By: SOM Docusate Sodium (Docusate Sodium 100 Mg Capsule) 100 mg PO DAILY PRN PRN Reason: Constipation Ergocalciferol (Ergocalciferol (Vitamin D2) 1,250 Mcg Capsule) 1,250 mcg PO FR@1000 [facility] Fenofibrate (Fenofibrate 160 Mg Tablet) 160 mg PO DAILY [facility] Last Admin: 04/02/22 08:04 Dose: Not Given Documented By: SOM Non-Admin Reason: NPO Ferrous Sulfate (Ferrous Sulfate 324 Mg Tablet.Dr) 324 mg PO TID [facility] Last Admin: 04/02/22 08:04 Dose: Not Given Documented By: SOM Non-Admin Reason: NPO Glucose (Glucose Gel 15 Gm Gel..Gram.) 15 gm PO Q15M PRN; Protocol PRN Reason: per Hypoglycemia Standing Ord. Heparin Sodium (Porcine) (Heparin Sodium,Porcine 5,000 Unit/Ml Vial) 5,000 unit SUBCUT Q12H [facility] Last Admin: 04/01/22 11:31 Dose: 5,000 unit Documented By: DARNELL Metronidazole (Flagyl) 500 mg in 100 mls @ 100 mls/hr IV Q8H [facility] Last Infusion: 04/02/22 07:37 Dose: 0 mls/hr Documented By: SOM Ceftriaxone Sodium 1 gm/ (Sodium Chloride) 50 mls @ 100 mls/hr IV Q24H [facility] Last Infusion: 04/01/22 23:18 Dose: 0 mls/hr Documented By: ORIANARISJarek Insulin Glargine (Insulin Glargine,Hum.Rec.Anlog 100 Unit/Ml 10 Ml Vial) 8 unit SUBCUT BEDTIME [facility] Last Admin: 04/01/22 21:14 Dose: 8 unit Documented By: SHERITA Insulin Human Lispro (Insulin Lispro 100 Unit/Ml 3 Ml Vial) 0 unit SUBCUT QIDACHS [facility]; Protocol Last Admin: 04/02/22 07:37 Dose: Not Given Documented By: SOM Non-Admin Reason: No Insulin Coverage Losartan Potassium (Losartan Potassium 50 Mg Tablet) 100 mg PO DAILY [facility]; Protocol Last Admin: 04/02/22 08:04 Dose: Not Given Documented By: SOM Non-Admin Reason: NPO Multivitamins/Vitamin C (Multivitamin Tablet) 1 tab PO DAILY [facility] Last Admin: 04/02/22 08:04 Dose: Not Given Documented By: SOM Non-Admin Reason: NPO Ondansetron HCl (Ondansetron Hcl 4 Mg/2 Ml Vial) 4 mg IVPUSH Q8H PRN PRN Reason: Nausea and Vomiting Oxycodone HCl (Oxycodone Hcl Immed Release 5 Mg Tablet) 5 mg PO Q6H PRN PRN Reason: Pain, Severe (Pain Scale 7-10) Last Admin: 04/01/22 11:33 Dose: 5 mg Documented By: DARNELL Sevelamer Carbonate (Sevelamer Carbonate Tablet 800 Mg Tablet) 1,600 mg PO TIDWM [facility] Last Admin: 04/02/22 08:03 Dose: Not Given Documented By: SOM Non-Admin Reason: NPO Sodium Chloride (0.9 % Sodium Chloride Flush 3 Ml Syringe) 3 ml IVFLUSH QSHIFT [facility] Last Admin: 04/02/22 07:31 Dose: 3 ml Documented By: SOM Ursodiol (Ursodiol 300 Mg Capsule) 300 mg PO BID [facility] Last Admin: 04/02/22 08:04 Dose: Not Given Documented By: SOM Non-Admin Reason: NPO Labs 04/02/22 06:00 04/02/22 08:29 Labs: Laboratory Results - last 24 hr 04/01/22 04/01/22 04/01/22 11:38 15:23 20:41 MCV MCH MCHC RDW Plt Count MPV Absolute Nucleated RBC Nucleated RBC % (auto) PT INR Anion Gap Estim Creat Clear Calc Estimated GFR POC Glucose 142 H 160 H 133 H Random Glucose Calcium C-Reactive Protein 04/02/22 04/02/22 04/02/22 06:00 06:00 06:00 MCV 96.8 MCH 32.1 MCHC 33.2 RDW 17.2 H Plt Count 282 MPV 12.2 Absolute Nucleated RBC 0.000 Nucleated RBC % (auto) 0.0 PT 18.7 H INR 1.6 H Anion Gap 19 Estim Creat Clear Calc 12.7 Estimated GFR 13 POC Glucose Random Glucose 46 L* Calcium 8.2 L C-Reactive Protein 12.41 H 04/02/22 04/02/22 04/02/22 07:18 07:51 08:29 MCV MCH MCHC RDW Plt Count MPV Absolute Nucleated RBC Nucleated RBC % (auto) PT INR Anion Gap Estim Creat Clear Calc Estimated GFR POC Glucose 46 L* 142 H Random Glucose 113 Calcium C-Reactive Protein Microbiology Microbiology Results: Microbiology 03/30/22 18:38 Blood Culture - Preliminary Blood - Venous No growth after 48 hours. 03/30/22 18:38 Blood Culture - Preliminary Blood - Venous No growth after 48 hours. Assessment and Plan (1) Cholecystitis with cholelithiasis: Status: Acute (2) Splenic infarct: Status: Acute Plan hospital d#4 76yo M with ESRD on HD, DM2, recent R BKA presenting with acute abdominal pain and found to have acute cholecystitis # acute cholecystitis with cholelithiasis - General surgery consulted, due to high operative risk, recommend IR cholecystostomy [scheduled for today] + ABX treatment [on ceftriaxone + metronidazole 03/30-]. US without evidence of CBD obstruction/stone # splenic infarct - Vascular Surgery consultation, TTE pending. follow BCx # sacral decubitus ulcer - Wound Care consultation pending # ESRD on HD MWF - Nephrology consulted, HD MWF - sevelamer # PAD - statin, hold ASA for cholecystostomy # anemia of ESRD - Hb stable # HTN - continue carvedilol, amlodipine, losartan, bumetanide # DM2 with hypoglycemia - hold glargine, continue correction-dose lispro # VTE ppx: UFH held for IR procedure # dispo: TBD In my clinical judgment, the patient requires continued inpatient hospitalization for the following reasons: IV antibiotics + IR intervention Son updated at bedside. Time Spent With Patient Time: Total time managing care of this patient today __40__ minutes. Quality Stroke Does the patient have a stroke diagnosis?: No VTE Prior VTE?: No VTE Risk Level:: Medical - moderate - high VTE Device Contraindication: Treatment Not Indicated VTE Drug Contraindication: N/A - Med Ordered
[2022-04-02 11:30] LABS: Glucose, Whole Blood 78 mg/dL (60-115)
--- NOTE | 2022-04-02 12:02 | P.CDIC_ITS ---
CDI Concurrent Query Documentation Clarification: PHYSICIAN'S DOCUMENTATION REQUEST Date of Query: 04/02/22 1202 Patient Name: Jean-Pierre Calderón Admit Date: 03/30/22 Dear Doctor, A review of the medical record indicates additional documentation may be needed. Please review below and update the documentation accordingly. Clinical Indicators: Is there a diagnosis that correlates with these lab findings: Risk Factors/Clinical Indicators/Treatments LABS: albumin 2.3 L 2.1 L Based on the above, could you clarify in the Progress Notes the appropriate diagnosis, if significant, that supports the above abnormalities and additional evaluation, monitoring, and/or treatment rendered: * Hypoalbuminemia or other etiology of lab findings * Labs indicate a diagnosis of (please specify) * Other (please specify) * Unable to determine Use of terms such as suspected, likely, concern for, or probable (associated with a specific diagnosis that is being evaluated, monitored, or treated as if it exists) are acceptable and can be coded in the inpatient setting, when documented at the time of discharge. Thank you, Lashay Lopez [facility], CDIS Extension: [phone] Please use your independent medical judgment in providing your response. THIS QUERY IS PART OF THE PERMANENT MEDICAL RECORD Provider Response: Other Other Diagnosis: hypoalb
[2022-04-02 14:00] LABS: Glucose, Whole Blood 64 mg/dL (60-115)
--- NOTE | 2022-04-02 14:04 | MHC.CLN ---
NUTRITION CONSULT FOR WOUND. UNSTAGEABLE WOUND TO SACRUM. CURRENTLY NPO FOR PROCEDURE. WHEN DIET RESUMES, RECOMMEND RENAL PARAMETERS: DIABETIC 1800 KCALS, 2 GRAM SODIUM, LOW POTASSIUM, LOW PHOSPHORUS. FOLLOW FOR INTAKE AND WOUND HEALING. IF POOR PO, RECOMMEND ADDING ENSURE CLEAR TID. PROVIDES 720 KCALS, 24 G PROTEIN. SEE CLINICAL NUTRITION ASSESSMENT 04/02/22.
[2022-04-02 14:16] LABS: Glucose, Whole Blood 157 mg/dL (60-115)
--- NOTE | 2022-04-02 15:01 | P.CONWO_ITS ---
History of Present Illness Data of Consult Service Date: 04/02/22 Requesting physician: Janey Packer Primary Care Provider: Sanjana Guerrero MD HPI Reason for consult: sacral pressure ulcer [id number]: Comes in with acute cholecystitis awaiting surgery. Asked to comment on sacral ulcer. Family took him home with services back in mid March and seem to be supportive. Right BKA relatively recent but worry that he missed essential BKA rehab to facilitate mobility and ambulation as a potential factor to the large sacral pressure ulcer that does not seem to be documented previously. Te lls me he is not hungry, feels nausea. Review of Systems Review of Systems: No pain on the skin of the spine. No shortness of breath. No pain of the stomach or chest. [facility] Medical History (Updated 04/02/22 @ 14:10 by Cheryl Mccallum, RN) Anemia in chronic kidney disease Below-knee amputation of left lower extremity CVA (cerebral vascular accident) Diabetes Diabetes mellitus, with long-term current use of insulin Diarrhea End stage renal disease End-stage renal disease on hemodialysis Fever of unknown origin High cholesterol History of leg amputation Hypertension Microalbuminuria Mixed hyperlipidemia PAD (peripheral artery disease) Preoperative cardiovascular examination Family History Father Myocardial infarction Mother No problems noted. Surgical History History of eye surgery History of laminectomy History of surgery History of surgery on arm S/P CABG x 4 S/P unilateral BKA (below knee amputation) Social History Household Members: Children Housing: Apartment Do you presently have visiting nurse or other home services: Yes (nursing aid) Alcohol intake: unknown Patient Tobacco Use Status: Never used Tobacco Smoked in Last 30 Days: No e-Cigarette/Vaping Use: Never Used Second Hand Smoke Exposure: No Use of substances other than those prescribed or required for medical reasons: No Currently Displaying Signs/Symptoms of Drug Intoxication Withdrawal: No Have you been hit, kicked, punched, or otherwise hurt by someone within the past year? If so, by whom?: No Do you feel safe in your current relationship?: No Is there a partner from a previous relationship who is making you feel unsafe now?: No Are you made to feel afraid or neglected: No Advance Directives: Yes Advance Directives on File: Yes Advance Directives Date on File: 06/15/21 Do you have thoughts of harming others: None Do you have a plan to hurt others: No Plan Recently lost weight without trying: No How much weight loss: Unsure Eating poorly because of decreased appetite: No Nutrition screen score: 2 Nutrition Risks: No Nutritional Risk Poor oral hygiene: No service: No Current occupational status: retired and disabled Cognitive needs: Yes Hearing needs: No Vision needs: No Meds Allergies Allergy/AdvReac Type Severity Reaction Status Date / Time lisinopril Allergy Intermediate hyperkalemi Verified 03/22/22 15:35 a lidocaine [From LIDOPRIL] Allergy Mild COUGH Verified 03/22/22 15:35 prilocaine [From LIDOPRIL] Allergy Mild COUGH Verified 03/22/22 15:35 canagliflozin [Invokana] AdvReac Mild back pain Verified 03/22/22 15:35 Hydralazine-HCTZ Allergy Unknown Unknown Uncoded 01/11/22 10:25 Active Medications: Current Medications Acetaminophen (Acetaminophen 325 Mg Tablet) 650 mg PO Q6H PRN PRN Reason: Pain, Mild (Pain Scale 1-3) Amlodipine Besylate (Amlodipine Besylate 5 Mg Tablet) 5 mg PO BEDTIME [facility]; Protocol Last Admin: 04/01/22 21:13 Dose: 5 mg Atorvastatin Calcium (Atorvastatin Calcium 40 Mg Tablet) 40 mg PO BEDTIME [facility] Last Admin: 04/01/22 21:13 Dose: 40 mg Bumetanide (Bumetanide 1 Mg Tablet) 1 mg PO DAILY [facility]; Protocol Last Admin: 04/02/22 08:03 Dose: Not Given Carvedilol (Carvedilol 25 Mg Tablet) 25 mg PO BID [facility]; Protocol Last Admin: 04/02/22 08:04 Dose: Not Given Dextrose (Dextrose 50 % 25 Gm/50 Ml Syringe) 25 gm IVPUSH Q15M PRN; Protocol PRN Reason: per Hypoglycemia Standing Ord. Last Admin: 04/02/22 13:53 Dose: 25 gm Dextrose (Dextrose 50 % 25 Gm/50 Ml Syringe) 25 gm IVPUSH Q15M PRN PRN Reason: per Hypoglycemia Standing Ord. Docusate Sodium (Docusate Sodium 100 Mg Capsule) 100 mg PO DAILY PRN PRN Reason: Constipation Ergocalciferol (Ergocalciferol (Vitamin D2) 1,250 Mcg Capsule) 1,250 mcg PO FR@1000 [facility] Fenofibrate (Fenofibrate 160 Mg Tablet) 160 mg PO DAILY [facility] Last Admin: 04/02/22 08:04 Dose: Not Given Ferrous Sulfate (Ferrous Sulfate 324 Mg Tablet.Dr) 324 mg PO TID [facility] Last Admin: 04/02/22 08:04 Dose: Not Given Glucose (Glucose Gel 15 Gm Gel..Gram.) 15 gm PO Q15M PRN; Protocol PRN Reason: per Hypoglycemia Standing Ord. Heparin Sodium (Porcine) (Heparin Sodium,Porcine 5,000 Unit/Ml Vial) 5,000 unit SUBCUT Q12H [facility] Last Admin: 04/01/22 11:31 Dose: 5,000 unit Metronidazole (Flagyl) 500 mg in 100 mls @ 100 mls/hr IV Q8H [facility] Last Infusion: 04/02/22 07:37 Dose: Infused Ceftriaxone Sodium 1 gm/ (Sodium Chloride) 50 mls @ 100 mls/hr IV Q24H [facility] Last Infusion: 04/01/22 23:18 Dose: Infused Insulin Glargine (Insulin Glargine,Hum.Rec.Anlog 100 Unit/Ml 10 Ml Vial) 8 unit SUBCUT BEDTIME [facility] Last Admin: 04/01/22 21:14 Dose: 8 unit Insulin Human Lispro (Insulin Lispro 100 Unit/Ml 3 Ml Vial) 0 unit SUBCUT QIDACHS [facility]; Protocol Last Admin: 04/02/22 11:32 Dose: Not Given Losartan Potassium (Losartan Potassium 50 Mg Tablet) 100 mg PO DAILY [facility]; Protocol Last Admin: 04/02/22 08:04 Dose: Not Given Multivitamins/Vitamin C (Multivitamin Tablet) 1 tab PO DAILY [facility] Last Admin: 04/02/22 08:04 Dose: Not Given Ondansetron HCl (Ondansetron Hcl 4 Mg/2 Ml Vial) 4 mg IVPUSH Q8H PRN PRN Reason: Nausea and Vomiting Oxycodone HCl (Oxycodone Hcl Immed Release 5 Mg Tablet) 5 mg PO Q6H PRN PRN Reason: Pain, Severe (Pain Scale 7-10) Last Admin: 04/01/22 11:33 Dose: 5 mg Sevelamer Carbonate (Sevelamer Carbonate Tablet 800 Mg Tablet) 1,600 mg PO TIDWM [facility] Last Admin: 04/02/22 11:32 Dose: Not Given Sodium Chloride (0.9 % Sodium Chloride Flush 3 Ml Syringe) 3 ml IVFLUSH QSHIFT [facility] Last Admin: 04/02/22 07:31 Dose: 3 ml Ursodiol (Ursodiol 300 Mg Capsule) 300 mg PO BID [facility] Last Admin: 04/02/22 08:04 Dose: Not Given Home Medications Medication Instructions Recorded Confirmed Last Taken Type sevelamer carbonate 800 mg tablet 1,600 mg PO TIDWM 01/22/20 03/30/22 03/30/22 History amlodipine 5 mg tablet 5 mg PO BEDTIME 06/01/21 03/30/22 03/30/22 History aspirin 81 mg tablet,delayed 1 tab PO DAILY 06/01/21 03/30/22 03/30/22 History release carvedilol 25 mg tablet 1 tab PO BID 06/01/21 03/30/22 03/30/22 History ursodiol 300 mg capsule 1 cap PO BID 06/01/21 03/30/22 03/30/22 History losartan 100 mg tablet 100 mg PO DAILY 01/23/22 03/30/22 03/30/22 History ergocalciferol (vitamin D2) 1,250 1,250 mcg PO FR@1000 03/30/22 03/30/22 Unknown History mcg (50,000 unit) capsule (Vitamin D2) tramadol 50 mg tablet 50 mg PO DAILY PRN Pain 03/30/22 03/30/22 Unknown History vitamin B complex and vitamin C 1 cap PO DAILY 03/30/22 03/30/22 03/30/22 History no.20-folic acid 1 mg capsule (Virt-Caps) Physical Exam Vital Signs and Narrative: Vital Signs: Last Vital Signs Temp 97.8 F 04/02/22 08:00 Pulse 58 04/02/22 08:00 Resp 17 04/02/22 08:00 BP 134/60 04/02/22 08:00 Pulse Ox 93 04/02/22 08:00 O2 Del Method 04/02/22 08:00 BMI result Body Mass Index 24.7 Peeled back Allevyn foam to reveal approx 5 x 7 cm unstageable wound of the sacrum with unclear chronicity. Periwound health looks ok, no maceration or redness. Wet sloughy wound bed could stand to be debrided if he was otherwise stable. Results Labs 04/02/22 06:00 04/02/22 08:29 Labs: Laboratory Results - last 24 hr 04/01/22 04/01/22 04/02/22 15:23 20:41 06:00 MCV 96.8 MCH 32.1 MCHC 33.2 RDW 17.2 H Plt Count 282 MPV 12.2 Absolute Nucleated RBC 0.000 Nucleated RBC % (auto) 0.0 PT INR Anion Gap Estim Creat Clear Calc Estimated GFR POC Glucose 160 H 133 H Random Glucose Calcium C-Reactive Protein 04/02/22 04/02/22 04/02/22 06:00 06:00 07:18 MCV MCH MCHC RDW Plt Count MPV Absolute Nucleated RBC Nucleated RBC % (auto) PT 18.7 H INR 1.6 H Anion Gap 19 Estim Creat Clear Calc 12.7 Estimated GFR 13 POC Glucose 46 L* Random Glucose 46 L* Calcium 8.2 L C-Reactive Protein 12.41 H 04/02/22 04/02/22 04/02/22 07:51 08:29 11:16 MCV MCH MCHC RDW Plt Count MPV Absolute Nucleated RBC Nucleated RBC % (auto) PT INR Anion Gap Estim Creat Clear Calc Estimated GFR POC Glucose 142 H 78 Random Glucose 113 Calcium C-Reactive Protein 04/02/22 04/02/22 13:36 14:12 MCV MCH MCHC RDW Plt Count MPV Absolute Nucleated RBC Nucleated RBC % (auto) PT INR Anion Gap Estim Creat Clear Calc Estimated GFR POC Glucose 64 157 H Random Glucose Calcium C-Reactive Protein Assessment and Plan (1) Decubitus ulcer: Status: Acute Plan Would weigh benefits of surgical debridement against risk of infection. Documentation suggests that he would not tolerate open nirmala and so IR procedure planned. Might suggest silver alginate cut to fit wound with zinc oxide to periwound with lots of family education on mobility and offloading once he recovers from acute cholecystitis. In house offloading q 2 hours is essential. Protein supplementation may be helpful once acute clinical picture improves. History of ESRD on HD noted, vasculopathy with occlusive disease also noted. This patient was seen under the supervision of Dr. Olmos who was available but did not see the patient. Time Spent With Patient Time: Total time managing care of this patient today ____ minutes.
[2022-04-02 17:55] LABS: Glucose, Whole Blood 92 mg/dL (60-115)
[2022-04-02] MEDS: oxyCODONE HCl Immed Release 5 MG TABLET PO (18:08)
[2022-04-02] MEDS: Sevelamer Carbonate Tablet 800 MG TABLET 1600 MG PO (19:12)
[2022-04-02 20:21] LABS: Glucose, Whole Blood 109 mg/dL (60-115)
[2022-04-02] MEDS: UrsodioL 300 MG CAPSULE PO (20:51)
[2022-04-02] MEDS: Ferrous Sulfate 324 MG TABLET.DR PO (20:51)
[2022-04-02] MEDS: amLODIPine Besylate 5 MG TABLET PO (20:52)
[2022-04-02] MEDS: Atorvastatin Calcium 40 MG TABLET PO (20:52)
[2022-04-02] MEDS: cefTRIAXone sodium 1 GM in 0.9 % Sodium Chloride 50 ML IV (23:05)
[2022-04-03 00:08] VITALS: BP 114/57; PULSE 70; RESP 17; TEMP 36.3; O2SAT 95
[2022-04-03] MEDS: metroNIDAZOLE/NS 500 MG/100 ML PIGGYBACK 100 MG IV ×3 (02:02→21:00)
[2022-04-03 03:51] VITALS: BP 143/61; PULSE 62; RESP 17; TEMP 36.6; O2SAT 95
[2022-04-03] MEDS: oxyCODONE HCl Immed Release 5 MG TABLET PO ×2 (04:33→14:09)
[2022-04-03 07:13] LABS: Hematocrit 24.7 % (42.0-52.0); Hemoglobin 8.1 g/dl (14.0-18.0); Mean Corpuscular HGB Conc 32.8 g/dl (31.0-36.0); Mean Corpuscular Hemoglobin 31.4 pg (27.0-33.0); Mean Corpuscular Volume 95.7 fL (80.0-98.0); Mean Platelet Volume 12.3 fL (9.4-12.4); Platelet Count 312 X10*3/uL (160-400); Red Blood Count 2.58 X10*6/uL (4.60-5.80); Red Cell Distribution Width 17.3 % (11.0-16.0); White Blood Count 13.7 X10*3/uL (4.8-10.8)
[2022-04-03] MEDS: Bumetanide 1 MG TABLET PO (07:30)
[2022-04-03] MEDS: Losartan Potassium 50 MG TABLET 100 MG PO (07:30)
[2022-04-03] MEDS: 0.9 % Sodium Chloride Flush 3 ML SYRINGE IVFLUSH ×2 (07:30→17:47)
[2022-04-03] MEDS: Multivitamin TABLET 1 TAB PO (07:30)
[2022-04-03] MEDS: Sevelamer Carbonate Tablet 800 MG TABLET 1600 MG PO ×3 (07:30→17:47)
[2022-04-03] MEDS: UrsodioL 300 MG CAPSULE PO ×2 (07:30→20:58)
[2022-04-03] MEDS: Ferrous Sulfate 324 MG TABLET.DR PO ×3 (07:31→20:58)
[2022-04-03] MEDS: Acetaminophen 325 MG TABLET 650 MG PO ×2 (07:31→14:10)
[2022-04-03] MEDS: Fenofibrate 160 MG TABLET PO (07:31)
[2022-04-03] MEDS: carvediloL 25 MG TABLET PO ×2 (07:31→20:58)
[2022-04-03 07:51] LABS: Glucose, Whole Blood 125 mg/dL (60-115)
[2022-04-03 07:56] LABS: Alanine Aminotransferase 41 U/L (0-40); Albumin Level 2.2 g/dL (3.5-5.0); Alkaline Phosphatase 179 U/L (39-117); Anion Gap 20 (12-20); Aspartate Amino Transferase 40 U/L (5-37); Bilirubin Total 1.3 mg/dL (0.0-1.0); Blood Urea Nitrogen 66 mg/dL (9-16); Calcium 8.4 mg/dL (8.4-10.2); Carbon Dioxide 26 mmol/L (22-29); Chloride 95 mmol/L (96-108); Estimated Glomerular Filt Rate 10; Glucose Random 126 mg/dL (60-115); Potassium 5.5 mmol/L (3.3-5.1); Sodium 135 mmol/L (135-145); Total Protein 5.6 g/dL (6.5-8.0)
[2022-04-03 08:00] VITALS: BP 126/44; PULSE 57; RESP 17; TEMP 37.2; O2SAT 90
--- NOTE | 2022-04-03 08:07 | PM.PNGS ---
Subjective Subjective Date of Service: 04/03/22 Interval history: IR drain placed yesterday; 110 mls output Physical Exam Vital Signs: Vital Signs: Last Vital Signs Temp 98.9 F 04/03/22 08:00 Pulse 57 04/03/22 08:00 Resp 17 04/03/22 08:00 BP 126/44 L 04/03/22 08:00 Pulse Ox 90 L 04/03/22 08:00 O2 Del Method 04/03/22 08:00 BMI result Body Mass Index 24.7 Const: General: no acute distress GI: Other: IR drain in right upper quadrant Objective Data Active Medications Acetaminophen (Acetaminophen 325 Mg Tablet) 650 mg PO Q6H PRN PRN Reason: Pain, Mild (Pain Scale 1-3) Last Admin: 04/03/22 07:31 Dose: 650 mg Documented By: GREGG Amlodipine Besylate (Amlodipine Besylate 5 Mg Tablet) 5 mg PO BEDTIME [facility]; Protocol Last Admin: 04/02/22 20:52 Dose: 5 mg Documented By: SHERITA Atorvastatin Calcium (Atorvastatin Calcium 40 Mg Tablet) 40 mg PO BEDTIME [facility] Last Admin: 04/02/22 20:52 Dose: 40 mg Documented By: SHERITA Bumetanide (Bumetanide 1 Mg Tablet) 1 mg PO DAILY [facility]; Protocol Last Admin: 04/03/22 07:30 Dose: 1 mg Documented By: GREGG Carvedilol (Carvedilol 25 Mg Tablet) 25 mg PO BID [facility]; Protocol Last Admin: 04/03/22 07:31 Dose: 25 mg Documented By: GREGG Dextrose (Dextrose 50 % 25 Gm/50 Ml Syringe) 25 gm IVPUSH Q15M PRN; Protocol PRN Reason: per Hypoglycemia Standing Ord. Last Admin: 04/02/22 13:53 Dose: 25 gm Documented By: GLENYS Dextrose (Dextrose 50 % 25 Gm/50 Ml Syringe) 25 gm IVPUSH Q15M PRN PRN Reason: per Hypoglycemia Standing Ord. Docusate Sodium (Docusate Sodium 100 Mg Capsule) 100 mg PO DAILY PRN PRN Reason: Constipation Ergocalciferol (Ergocalciferol (Vitamin D2) 1,250 Mcg Capsule) 1,250 mcg PO FR@1000 [facility] Fenofibrate (Fenofibrate 160 Mg Tablet) 160 mg PO DAILY [facility] Last Admin: 04/03/22 07:31 Dose: 160 mg Documented By: GREGG Ferrous Sulfate (Ferrous Sulfate 324 Mg Tablet.) 324 mg PO TID [facility] Last Admin: 04/03/22 07:31 Dose: 324 mg Documented By: GREGG Glucose (Glucose Gel 15 Gm Gel..Gram.) 15 gm PO Q15M PRN; Protocol PRN Reason: per Hypoglycemia Standing Ord. Heparin Sodium (Porcine) (Heparin Sodium,Porcine 5,000 Unit/Ml Vial) 5,000 unit SUBCUT Q12H [facility] Last Admin: 04/01/22 11:31 Dose: 5,000 unit Documented By: DARNELL Ceftriaxone Sodium 1 gm/ (Sodium Chloride) 50 mls @ 100 mls/hr IV Q24H [facility] Last Infusion: 04/02/22 23:35 Dose: 0 mls/hr Documented By: SHERITA Metronidazole (Flagyl) 500 mg in 100 mls @ 100 mls/hr IV Q8H [facility] Last Infusion: 04/03/22 03:02 Dose: 0 mls/hr Documented By: SHERITA Insulin Glargine (Insulin Glargine,Hum.Rec.Anlog 100 Unit/Ml 10 Ml Vial) 8 unit SUBCUT BEDTIME [facility] Last Admin: 04/01/22 21:14 Dose: 8 unit Documented By: SHERITA Insulin Human Lispro (Insulin Lispro 100 Unit/Ml 3 Ml Vial) 0 unit SUBCUT QIDACHS [facility]; Protocol Last Admin: 04/03/22 07:31 Dose: Not Given Documented By: GREGG Non-Admin Reason: No Insulin Coverage Losartan Potassium (Losartan Potassium 50 Mg Tablet) 100 mg PO DAILY [facility]; Protocol Last Admin: 04/03/22 07:30 Dose: 100 mg Documented By: GREGG Multivitamins/Vitamin C (Multivitamin Tablet) 1 tab PO DAILY [facility] Last Admin: 04/03/22 07:30 Dose: 1 tab Documented By: GREGG Ondansetron HCl (Ondansetron Hcl 4 Mg/2 Ml Vial) 4 mg IVPUSH Q8H PRN PRN Reason: Nausea and Vomiting Oxycodone HCl (Oxycodone Hcl Immed Release 5 Mg Tablet) 5 mg PO Q6H PRN PRN Reason: Pain, Severe (Pain Scale 7-10) Last Admin: 04/03/22 04:33 Dose: 5 mg Documented By: ODRISJarek Sevelamer Carbonate (Sevelamer Carbonate Tablet 800 Mg Tablet) 1,600 mg PO TIDWM [facility] Last Admin: 04/03/22 07:30 Dose: 1,600 mg Documented By: GREGG Sodium Chloride (0.9 % Sodium Chloride Flush 3 Ml Syringe) 3 ml IVFLUSH QSHIFT [facility] Last Admin: 04/03/22 07:30 Dose: 3 ml Documented By: GREGG Ursodiol (Ursodiol 300 Mg Capsule) 300 mg PO BID [facility] Last Admin: 04/03/22 07:30 Dose: 300 mg Documented By: GREGG Labs 04/03/22 06:02 04/03/22 06:02 Labs: Laboratory Results - last 24 hr 04/02/22 04/02/22 04/02/22 08:29 11:16 13:36 MCV MCH MCHC RDW Plt Count MPV Absolute Nucleated RBC Nucleated RBC % (auto) Anion Gap Estim Creat Clear Calc Estimated GFR POC Glucose 78 64 Random Glucose 113 Calcium Total Bilirubin AST ALT Alkaline Phosphatase Total Protein Albumin 04/02/22 04/02/22 04/02/22 14:12 17:52 20:17 MCV MCH MCHC RDW Plt Count MPV Absolute Nucleated RBC Nucleated RBC % (auto) Anion Gap Estim Creat Clear Calc Estimated GFR POC Glucose 157 H 92 109 Random Glucose Calcium Total Bilirubin AST ALT Alkaline Phosphatase Total Protein Albumin 04/03/22 04/03/22 04/03/22 06:02 06:02 07:27 MCV 95.7 MCH 31.4 MCHC 32.8 RDW 17.3 H Plt Count 312 MPV 12.3 Absolute Nucleated RBC 0.000 Nucleated RBC % (auto) 0.0 Anion Gap 20 Estim Creat Clear Calc 10.0 Estimated GFR 10 POC Glucose 125 H Random Glucose 126 H Calcium 8.4 Total Bilirubin 1.3 H AST 40 H ALT 41 H Alkaline Phosphatase 179 H Total Protein 5.6 L Albumin 2.2 L Procedures Date of Service Date of Service: 04/03/22 Progress Note: A&P Assessment and plan (1) Cholecystitis with cholelithiasis: Status: Acute Plan 76 year old male with multiple medical problems found to have acute cholecystitis due to cholelithiasis; s/p IR cholecystostomy. 110 mls fluid drained so far. Will monitor output; will follow up upon discharge to manage tube removal. Time Spent With Patient Time: Total time managing care of this patient today ____ minutes. Quality Stroke Does the patient have a stroke diagnosis?: No VTE Prior VTE?: No VTE Risk Level:: Medical - moderate - high VTE Device Contraindication: Treatment Not Indicated VTE Drug Contraindication: N/A - Med Ordered
--- NOTE | 2022-04-03 08:38 | PC.NURSE ---
PT OFF FLOOR AT THIS TIME FOR DIALYSIS VIA BED.
--- NOTE | 2022-04-03 10:02 | PM.PNNEP ---
Subjective Subjective Date of Service: 04/03/22 Interval history: seen during HD Physical Exam Vital Signs: Vital Signs: Last Vital Signs Temp 98.9 F 04/03/22 08:00 Pulse 57 04/03/22 08:00 Resp 17 04/03/22 08:00 BP 126/44 L 04/03/22 08:00 Pulse Ox 90 L 04/03/22 08:00 O2 Del Method 04/03/22 08:00 BMI result Body Mass Index 24.7 Const: General: alert and awake HEENT: Head: Yes normocephalic and Yes atraumatic Resp: Auscultation: clear to auscultation bilaterally Cardio: Heart sounds: S1 normal heart sound present and S2 normal heart sound present GI: Palpation (GI): Soft to palpation and no guarding Extrem: General: Yes edema Objective Data Labs 04/03/22 06:02 04/03/22 06:02 Labs: Laboratory Results - last 24 hr 04/02/22 04/02/22 04/02/22 11:16 13:36 14:12 WBC RBC Hgb Hct MCV MCH MCHC RDW Plt Count MPV Absolute Nucleated RBC Nucleated RBC % (auto) Sodium Potassium Chloride Carbon Dioxide Anion Gap BUN Creatinine Estim Creat Clear Calc Estimated GFR POC Glucose 78 64 157 H Random Glucose Calcium Total Bilirubin AST ALT Alkaline Phosphatase Total Protein Albumin 04/02/22 04/02/22 04/03/22 17:52 20:17 06:02 WBC 13.7 H RBC 2.58 L Hgb 8.1 L Hct 24.7 L MCV 95.7 MCH 31.4 MCHC 32.8 RDW 17.3 H Plt Count 312 MPV 12.3 Absolute Nucleated RBC 0.000 Nucleated RBC % (auto) 0.0 Sodium Potassium Chloride Carbon Dioxide Anion Gap BUN Creatinine Estim Creat Clear Calc Estimated GFR POC Glucose 92 109 Random Glucose Calcium Total Bilirubin AST ALT Alkaline Phosphatase Total Protein Albumin 04/03/22 04/03/22 06:02 07:27 WBC RBC Hgb Hct MCV MCH MCHC RDW Plt Count MPV Absolute Nucleated RBC Nucleated RBC % (auto) Sodium 135 Potassium 5.5 H Chloride 95 L Carbon Dioxide 26 Anion Gap 20 BUN 66 H Creatinine 5.51 H* Estim Creat Clear Calc 10.0 Estimated GFR 10 POC Glucose 125 H Random Glucose 126 H Calcium 8.4 Total Bilirubin 1.3 H AST 40 H ALT 41 H Alkaline Phosphatase 179 H Total Protein 5.6 L Albumin 2.2 L Microbiology Microbiology Results: Microbiology 03/30/22 18:38 Blood - Venous Blood Culture - Preliminary No growth after 48 hours. 03/30/22 18:38 Blood - Venous Blood Culture - Preliminary No growth after 48 hours. Procedures Date of Service Date of Service: 04/03/22 Assessment & Plan Assessment and plan (1) ESRD (end stage renal disease): Status: Acute (2) Cholecystitis with cholelithiasis: Status: Acute (3) Anemia: Status: Acute Plan ESRD No s/s of uremia usually has HD -- at [place] dialysis unit cholecystitis s/p drainage by IR REC HD per protocol missed HD yesterday HD today and tomorrow to get back on schedule( MWF) renal diet DANIEL phosphate binders surgery and GI f/u IV Abx follow cultures Time Spent With Patient Time: Total time managing care of this patient today ____ minutes. Progress Note: Quality Stroke Does the patient have a stroke diagnosis?: No
--- NOTE | 2022-04-03 13:45 | HO.PM.IMPN ---
Subjective Subjective Date of Service: 04/03/22 Interval History: Seen in follow up for cholecystitis Interval history: Patient resting comfortably at dialysis. Has no complaints at this time. Review of Systems Review of Systems: Yes all other systems are reviewed and are negative Physical Exam Vital Signs: Vital Signs: Last Vital Signs Temp 98.9 F 04/03/22 08:00 Pulse 57 04/03/22 08:00 Resp 17 04/03/22 08:00 BP 126/44 L 04/03/22 08:00 Pulse Ox 90 L 04/03/22 08:00 O2 Del Method 04/03/22 08:00 BMI result Body Mass Index 24.7 Constitutional - Awake and Alert, No apparent distress Eyes - PERRLA, EOMI Cardiovascular - S1S2, RRR, No edema Respiratory - Normal lung expansion, Normal respiratory effort, No respiratory distress, CTA bilaterally Gastrointestinal - NT / ND; +BS; No rebound or guarding. IR draing in place with sanguinous fluid in RUQ Extremities - no calf tenderness bilaterally, no swelling. Lateral dehiscence of the left BKA wound noted that does not appear new and is healing. Wound is dry without foul odor or purulent drainage Skin - Warm/Dry Neurological - Alert & oriented x3 Psychological - Appropriate affect Objective Data Active Medications Acetaminophen (Acetaminophen 325 Mg Tablet) 650 mg PO Q6H PRN PRN Reason: Pain, Mild (Pain Scale 1-3) Last Admin: 04/03/22 07:31 Dose: 650 mg Documented By: GREGG Amlodipine Besylate (Amlodipine Besylate 5 Mg Tablet) 5 mg PO BEDTIME [facility]; Protocol Last Admin: 04/02/22 20:52 Dose: 5 mg Documented By: SHERITA Atorvastatin Calcium (Atorvastatin Calcium 40 Mg Tablet) 40 mg PO BEDTIME [facility] Last Admin: 04/02/22 20:52 Dose: 40 mg Documented By: SHERITA Bumetanide (Bumetanide 1 Mg Tablet) 1 mg PO DAILY [facility]; Protocol Last Admin: 04/03/22 07:30 Dose: 1 mg Documented By: GREGG Carvedilol (Carvedilol 25 Mg Tablet) 25 mg PO BID [facility]; Protocol Last Admin: 04/03/22 07:31 Dose: 25 mg Documented By: GREGG Dextrose (Dextrose 50 % 25 Gm/50 Ml Syringe) 25 gm IVPUSH Q15M PRN; Protocol PRN Reason: per Hypoglycemia Standing Ord. Last Admin: 04/02/22 13:53 Dose: 25 gm Documented By: GLENYS Dextrose (Dextrose 50 % 25 Gm/50 Ml Syringe) 25 gm IVPUSH Q15M PRN PRN Reason: per Hypoglycemia Standing Ord. Docusate Sodium (Docusate Sodium 100 Mg Capsule) 100 mg PO DAILY PRN PRN Reason: Constipation Ergocalciferol (Ergocalciferol (Vitamin D2) 1,250 Mcg Capsule) 1,250 mcg PO FR@1000 [facility] Fenofibrate (Fenofibrate 160 Mg Tablet) 160 mg PO DAILY [facility] Last Admin: 04/03/22 07:31 Dose: 160 mg Documented By: GREGG Ferrous Sulfate (Ferrous Sulfate 324 Mg Tablet.Dr) 324 mg PO TID [facility] Last Admin: 04/03/22 07:31 Dose: 324 mg Documented By: GREGG Glucose (Glucose Gel 15 Gm Gel..Gram.) 15 gm PO Q15M PRN; Protocol PRN Reason: per Hypoglycemia Standing Ord. Heparin Sodium (Porcine) (Heparin Sodium,Porcine 5,000 Unit/Ml Vial) 5,000 unit SUBCUT Q12H [facility] Last Admin: 04/01/22 11:31 Dose: 5,000 unit Documented By: DARNELL Ceftriaxone Sodium 1 gm/ (Sodium Chloride) 50 mls @ 100 mls/hr IV Q24H [facility] Last Infusion: 04/02/22 23:35 Dose: 0 mls/hr Documented By: SHERITA Metronidazole (Flagyl) 500 mg in 100 mls @ 100 mls/hr IV Q8H [facility] Last Infusion: 04/03/22 03:02 Dose: 0 mls/hr Documented By: SHERITA Insulin Glargine (Insulin Glargine,Hum.Rec.Anlog 100 Unit/Ml 10 Ml Vial) 8 unit SUBCUT BEDTIME [facility] Last Admin: 04/01/22 21:14 Dose: 8 unit Documented By: SHERITA Insulin Human Lispro (Insulin Lispro 100 Unit/Ml 3 Ml Vial) 0 unit SUBCUT QIDACHS [facility]; Protocol Last Admin: 04/03/22 12:08 Dose: Not Given Documented By: GREGG Non-Admin Reason: Off unit: Dialysis Losartan Potassium (Losartan Potassium 50 Mg Tablet) 100 mg PO DAILY [facility]; Protocol Last Admin: 04/03/22 07:30 Dose: 100 mg Documented By: GREGG Multivitamins/Vitamin C (Multivitamin Tablet) 1 tab PO DAILY [facility] Last Admin: 04/03/22 07:30 Dose: 1 tab Documented By: GREGG Ondansetron HCl (Ondansetron Hcl 4 Mg/2 Ml Vial) 4 mg IVPUSH Q8H PRN PRN Reason: Nausea and Vomiting Oxycodone HCl (Oxycodone Hcl Immed Release 5 Mg Tablet) 5 mg PO Q6H PRN PRN Reason: Pain, Severe (Pain Scale 7-10) Last Admin: 04/03/22 04:33 Dose: 5 mg Documented By: ODRISJarek Sevelamer Carbonate (Sevelamer Carbonate Tablet 800 Mg Tablet) 1,600 mg PO TIDWM [facility] Last Admin: 04/03/22 07:30 Dose: 1,600 mg Documented By: GREGG Sodium Chloride (0.9 % Sodium Chloride Flush 3 Ml Syringe) 3 ml IVFLUSH QSHIFT [facility] Last Admin: 04/03/22 07:30 Dose: 3 ml Documented By: GREGG Ursodiol (Ursodiol 300 Mg Capsule) 300 mg PO BID [facility] Last Admin: 04/03/22 07:30 Dose: 300 mg Documented By: GREGG Labs 04/03/22 06:02 04/03/22 06:02 Labs: Laboratory Results - last 24 hr 04/02/22 04/02/22 04/02/22 13:36 14:12 17:52 MCV MCH MCHC RDW Plt Count MPV Absolute Nucleated RBC Nucleated RBC % (auto) Anion Gap Estim Creat Clear Calc Estimated GFR POC Glucose 64 157 H 92 Random Glucose Calcium Total Bilirubin AST ALT Alkaline Phosphatase Total Protein Albumin 04/02/22 04/03/22 04/03/22 20:17 06:02 06:02 MCV 95.7 MCH 31.4 MCHC 32.8 RDW 17.3 H Plt Count 312 MPV 12.3 Absolute Nucleated RBC 0.000 Nucleated RBC % (auto) 0.0 Anion Gap 20 Estim Creat Clear Calc 10.0 Estimated GFR 10 POC Glucose 109 Random Glucose 126 H Calcium 8.4 Total Bilirubin 1.3 H AST 40 H ALT 41 H Alkaline Phosphatase 179 H Total Protein 5.6 L Albumin 2.2 L 04/03/22 07:27 MCV MCH MCHC RDW Plt Count MPV Absolute Nucleated RBC Nucleated RBC % (auto) Anion Gap Estim Creat Clear Calc Estimated GFR POC Glucose 125 H Random Glucose Calcium Total Bilirubin AST ALT Alkaline Phosphatase Total Protein Albumin Assessment and Plan (1) Dehiscence of operative wound: Status: Acute (2) Cholecystitis with cholelithiasis: Status: Acute (3) ESRD (end stage renal disease) on dialysis: Status: Acute (4) Decubitus ulcer: Status: Acute Plan 76yo M with ESRD on HD, DM2, recent R BKA presenting with acute abdominal pain and found to have acute cholecystitis # acute cholecystitis with cholelithiasis -POD1 s/p IR cholecystostomy. IR drain placed with 110 mls fluid drainaged so far -Pain well controlled -Continue ceftriaxone and flagyl (Initiated 03/30) per gen surg until WBC normalizes -Appreciate gen surgery input # splenic infarct - Vascular Surgery consultation, TTE pending.? follow BCx # sacral decubitus ulcer - appreciate wound care input -Silver alginate dressings and offloading advised #Wound dehiscence lateral BKA postop wound -vascular surgery aware of dehiscence. Wound is clean, dry, no purulent drainage -discussed with vascular surgery. Recommend silver alginate dressings 3 times weekly -outpatient follow-up advised # ESRD on HD MWF - Nephrology consulted, HD missed yesterday. HD today and tomorrow to get back on schedule - sevelamer - renal diet -Mild hyperkaelmia today- should resolve with HD. -Follow BMP # PAD - statin, resume asa # anemia of ESRD - Hb stable # HTN - continue carvedilol, amlodipine, losartan, bumetanide # DM2 with hypoglycemia - hold glargine, continue correction-dose lispro # VTE ppx: UFH held for IR procedure # dispo: TBD In my clinical judgment, the patient requires continued inpatient hospitalization for the following reasons: IV antibiotics + IR intervention Time Spent With Patient Time: Total time managing care of this patient today ____ minutes. Quality Stroke Does the patient have a stroke diagnosis?: No VTE Prior VTE?: No VTE Risk Level:: Medical - moderate - high VTE Device Contraindication: Treatment Not Indicated VTE Drug Contraindication: N/A - Med Ordered
--- NOTE | 2022-04-03 15:35 | MHC.CM.PN ---
DAUGHTER, JAMES, UPDATED WITH PLAN OF CARE CM CONTINUING TO FOLLOW DC PLAN: HOME WITH RESUMPTION OF [facility] SERVICES
[2022-04-03 15:38] VITALS: BP 134/59; PULSE 62; RESP 18; TEMP 36.1; O2SAT 90
[2022-04-03 15:44] LABS: Glucose, Whole Blood 137 mg/dL (60-115)
[2022-04-03 19:43] VITALS: BP 155/64; PULSE 60; RESP 18; TEMP 36.8; O2SAT 93
[2022-04-03 19:52] LABS: Glucose, Whole Blood 238 mg/dL (60-115)
[2022-04-03] MEDS: amLODIPine Besylate 5 MG TABLET PO (20:58)
[2022-04-03] MEDS: Atorvastatin Calcium 40 MG TABLET PO (20:58)
[2022-04-03] MEDS: Insulin Lispro 100 UNIT/ML 3 ML VIAL SUBCUT (20:59)
[2022-04-03] MEDS: cefTRIAXone sodium 1 GM in 0.9 % Sodium Chloride 50 ML IV (22:40)
[2022-04-04 03:54] VITALS: BP 148/63; PULSE 61; RESP 17; TEMP 36.2; O2SAT 94
[2022-04-04] MEDS: metroNIDAZOLE/NS 500 MG/100 ML PIGGYBACK 100 MG IV ×3 (05:33→20:36)
[2022-04-04 07:06] LABS: MANUAL DIFF FLAG NO
--- NOTE | 2022-04-04 07:15 | PC.NURSE ---
Assumed care of patient at this time, patient off of floor per folder tier RN getting dialysis.
[2022-04-04 07:23] LABS: Basophils Absolute Auto 0.1 X10*3/uL (0.0-0.2); Basophils Percent Auto 0.4 % (0-2); Eosinophils Absolute Auto 0.2 X10*3/uL (0.0-0.4); Eosinophils Percent Auto 1.6 % (0-4); Hematocrit 24.2 % (42.0-52.0); Hemoglobin 7.8 g/dl (14.0-18.0); Imm Gran Pct Auto 0.7 % (0.0-0.4); Lymphocytes Absolute Auto 0.7 X10*3/uL (1.2-4.9); Mean Corpuscular HGB Conc 32.2 g/dl (31.0-36.0); Mean Corpuscular Hemoglobin 31.8 pg (27.0-33.0); Mean Corpuscular Volume 98.8 fL (80.0-98.0); Mean Platelet Volume 12.1 fL (9.4-12.4); Monocytes Absolute Auto 0.6 X10*3/uL (0.1-1.2); Monocytes Percent Auto 4.5 % (2-11); NRBC Pct Auto 0.1 /100WBC (0.0-0.2); Neutrophils Absolute Auto 11.8 x10*3/uL (2.0-8.3); Neutrophils Percent Auto 87.8 % (45-73); Platelet Count 270 X10*3/uL (160-400); Red Blood Count 2.45 X10*6/uL (4.60-5.80); Red Cell Distribution Width 17.8 % (11.0-16.0); White Blood Count 13.5 X10*3/uL (4.8-10.8)
[2022-04-04 08:00] VITALS: BP 161/71; PULSE 66; RESP 18; TEMP 36.1; O2SAT 97
[2022-04-04 08:00] LABS: Anion Gap 15 (12-20); Blood Urea Nitrogen 27 mg/dL (9-16); Calcium 8.2 mg/dL (8.4-10.2); Carbon Dioxide 25 mmol/L (22-29); Chloride 100 mmol/L (96-108); Creatinine Clr Calc Pharmacy 17.4; Estimated Glomerular Filt Rate 19; Glucose Random 68 mg/dL (60-115); Potassium 4.2 mmol/L (3.3-5.1); Sodium 136 mmol/L (135-145)
--- NOTE | 2022-04-04 10:14 | MHC.CLN ---
F/U UNSTAGEABLE WOUND TO SACRUM. DIET PER DIALYSIS PARAMETERS: DIABETIC 1800 KCALS, 2 GRAM SODIUM, LOW POTASSIUM, LOW PHOSPHORUS. ENSURE CLEAR TID PROVIDES ADDITIONAL 720 KCALS, 24 G PROTEIN. ADDITIONAL PROTEIN TO PROMOTE WOUND HEALING. INTAKE APPEARS GOOD, 75-100%. FOLLOW FOR INTAKE AND WOUND HEALING.
[2022-04-04] MEDS: Fenofibrate 160 MG TABLET PO (10:46)
[2022-04-04] MEDS: Aspirin Enteric Coated 81 MG TABLET.DR PO (10:46)
[2022-04-04] MEDS: 0.9 % Sodium Chloride Flush 3 ML SYRINGE IVFLUSH ×3 (10:46→20:41)
[2022-04-04] MEDS: Multivitamin TABLET 1 TAB PO (10:46)
[2022-04-04] MEDS: Losartan Potassium 50 MG TABLET 100 MG PO (10:46)
[2022-04-04] MEDS: UrsodioL 300 MG CAPSULE PO ×2 (10:46→20:35)
[2022-04-04] MEDS: Ferrous Sulfate 324 MG TABLET.DR PO ×3 (10:46→20:35)
[2022-04-04] MEDS: Bumetanide 1 MG TABLET PO (10:46)
[2022-04-04] MEDS: oxyCODONE HCl Immed Release 5 MG TABLET PO ×2 (10:46→17:01)
[2022-04-04] MEDS: carvediloL 25 MG TABLET PO ×2 (10:46→20:35)
[2022-04-04] MEDS: Acetaminophen 325 MG TABLET 650 MG PO ×2 (10:47→17:01)
[2022-04-04 10:55] LABS: Glucose, Whole Blood 78 mg/dL (60-115)
--- NOTE | 2022-04-04 11:32 | P.CONGS_ITS ---
History of Present Illness Consult details Consult date: 04/04/22 Reason for consult: wound care Narrative: Nonhealing right lower extremity stump. Very complex 76-year-old gentleman well known to me status post bilateral BKA most recently right. Of note he has been on dialysis and at the time of my exam he was seen on dialysis. In addition he came with acute cholecystitis which is currently being treated. He now presents to us for vascular follow-up. Review of Systems Review of Systems: Yes all other systems are reviewed and are negative Constitutional: Constitutional: Reports no additional constitutional complaints ENT: Reports Normal hearing present Cardiovascular: Cardiovascular: Denies chest pain, Denies chest pain at rest, Denies chest pain with activity and Denies pedal edema Respiratory: Respiratory: Denies cough Gastrointestinal: Gastrointestinal: Denies abdominal pain Musculoskeletal: Musculoskeletal: Denies abnormal gait, Denies muscle cramps and Denies radiating pain into limb Integumentary/Breasts: Skin/Breast: Denies skin ulcer and Denies wounds Neurologic: Reports Normal hearing present and Denies abnormal gait Psychiatric: Psychiatric: Reports no additional psychiatric complaints [facility] Past Medical History Medical History (Updated 04/04/22 @ 11:37 by August Swan MD) Anemia in chronic kidney disease Below-knee amputation of left lower extremity CVA (cerebral vascular accident) Diabetes Diabetes mellitus, with long-term current use of insulin Diarrhea End stage renal disease End-stage renal disease on hemodialysis Fever of unknown origin High cholesterol History of leg amputation Hypertension Microalbuminuria Mixed hyperlipidemia PAD (peripheral artery disease) Preoperative cardiovascular examination Family History Family History Father Myocardial infarction Mother No problems noted. Surgical History Surgical History History of eye surgery History of laminectomy History of surgery History of surgery on arm S/P CABG x 4 S/P unilateral BKA (below knee amputation) Social History Social History Household Members: Children Housing: Apartment Do you presently have visiting nurse or other home services: Yes (nursing aid) Alcohol intake: unknown Patient Tobacco Use Status: Never used Tobacco e-Cigarette/Vaping Use: Never Used Second Hand Smoke Exposure: No Advance Directives Date on File: 06/15/21 service: No Current occupational status: retired and disabled Cognitive needs: Yes Hearing needs: No Vision needs: No Meds Allergies Allergy/AdvReac Type Severity Reaction Status Date / Time lisinopril Allergy Intermediate hyperkalemi Verified 03/22/22 15:35 a lidocaine [From LIDOPRIL] Allergy Mild COUGH Verified 03/22/22 15:35 prilocaine [From LIDOPRIL] Allergy Mild COUGH Verified 03/22/22 15:35 canagliflozin [Invokana] AdvReac Mild back pain Verified 03/22/22 15:35 Hydralazine-HCTZ Allergy Unknown Unknown Uncoded 01/11/22 10:25 Active Medications: Current Medications Acetaminophen (Acetaminophen 325 Mg Tablet) 650 mg PO Q6H PRN PRN Reason: Pain, Mild (Pain Scale 1-3) Last Admin: 04/04/22 10:47 Dose: 650 mg Amlodipine Besylate (Amlodipine Besylate 5 Mg Tablet) 5 mg PO BEDTIME [facility]; Protocol Last Admin: 04/03/22 20:58 Dose: 5 mg Aspirin (Aspirin Enteric Coated 81 Mg Tablet.Dr) 81 mg PO DAILY [facility] Last Admin: 04/04/22 10:46 Dose: 81 mg Atorvastatin Calcium (Atorvastatin Calcium 40 Mg Tablet) 40 mg PO BEDTIME [facility] Last Admin: 04/03/22 20:58 Dose: 40 mg Bumetanide (Bumetanide 1 Mg Tablet) 1 mg PO DAILY [facility]; Protocol Last Admin: 04/04/22 10:46 Dose: 1 mg Carvedilol (Carvedilol 25 Mg Tablet) 25 mg PO BID [facility]; Protocol Last Admin: 04/04/22 10:46 Dose: 25 mg Dextrose (Dextrose 50 % 25 Gm/50 Ml Syringe) 25 gm IVPUSH Q15M PRN; Protocol PRN Reason: per Hypoglycemia Standing Ord. Last Admin: 04/02/22 13:53 Dose: 25 gm Dextrose (Dextrose 50 % 25 Gm/50 Ml Syringe) 25 gm IVPUSH Q15M PRN PRN Reason: per Hypoglycemia Standing Ord. Docusate Sodium (Docusate Sodium 100 Mg Capsule) 100 mg PO DAILY PRN PRN Reason: Constipation Ergocalciferol (Ergocalciferol (Vitamin D2) 1,250 Mcg Capsule) 1,250 mcg PO FR@1000 [facility] Fenofibrate (Fenofibrate 160 Mg Tablet) 160 mg PO DAILY [facility] Last Admin: 04/04/22 10:46 Dose: 160 mg Ferrous Sulfate (Ferrous Sulfate 324 Mg Tablet.Dr) 324 mg PO TID [facility] Last Admin: 04/04/22 10:46 Dose: 324 mg Glucose (Glucose Gel 15 Gm Gel..Gram.) 15 gm PO Q15M PRN; Protocol PRN Reason: per Hypoglycemia Standing Ord. Heparin Sodium (Porcine) (Heparin Sodium,Porcine 5,000 Unit/Ml Vial) 5,000 unit SUBCUT Q12H [facility] Last Admin: 04/01/22 11:31 Dose: 5,000 unit Ceftriaxone Sodium 1 gm/ (Sodium Chloride) 50 mls @ 100 mls/hr IV Q24H [facility] Last Infusion: 04/03/22 23:15 Dose: Infused Metronidazole (Flagyl) 500 mg in 100 mls @ 100 mls/hr IV Q8H [facility] Last Infusion: 04/04/22 07:18 Dose: Infused Insulin Glargine (Insulin Glargine,Hum.Rec.Anlog 100 Unit/Ml 10 Ml Vial) 8 unit SUBCUT BEDTIME [facility] Last Admin: 04/01/22 21:14 Dose: 8 unit Insulin Human Lispro (Insulin Lispro 100 Unit/Ml 3 Ml Vial) 0 unit SUBCUT QIDACHS [facility]; Protocol Last Admin: 04/04/22 10:57 Dose: Not Given Losartan Potassium (Losartan Potassium 50 Mg Tablet) 100 mg PO DAILY [facility]; Protocol Last Admin: 04/04/22 10:46 Dose: 100 mg Multivitamins/Vitamin C (Multivitamin Tablet) 1 tab PO DAILY [facility] Last Admin: 04/04/22 10:46 Dose: 1 tab Ondansetron HCl (Ondansetron Hcl 4 Mg/2 Ml Vial) 4 mg IVPUSH Q8H PRN PRN Reason: Nausea and Vomiting Oxycodone HCl (Oxycodone Hcl Immed Release 5 Mg Tablet) 5 mg PO Q6H PRN PRN Reason: Pain, Severe (Pain Scale 7-10) Last Admin: 04/04/22 10:46 Dose: 5 mg Sevelamer Carbonate (Sevelamer Carbonate Tablet 800 Mg Tablet) 1,600 mg PO TIDWM [facility] Last Admin: 04/04/22 10:47 Dose: Not Given Sodium Chloride (0.9 % Sodium Chloride Flush 3 Ml Syringe) 3 ml IVFLUSH QSHIFT [facility] Last Admin: 04/04/22 10:46 Dose: 3 ml Ursodiol (Ursodiol 300 Mg Capsule) 300 mg PO BID [facility] Last Admin: 04/04/22 10:46 Dose: 300 mg Home Medications Medication Instructions Recorded Confirmed Last Taken Type sevelamer carbonate 800 mg tablet 1,600 mg PO TIDWM 01/22/20 03/30/22 03/30/22 History amlodipine 5 mg tablet 5 mg PO BEDTIME 06/01/21 03/30/22 03/30/22 History aspirin 81 mg tablet,delayed 1 tab PO DAILY 06/01/21 03/30/22 03/30/22 History release carvedilol 25 mg tablet 1 tab PO BID 06/01/21 03/30/22 03/30/22 History ursodiol 300 mg capsule 1 cap PO BID 06/01/21 03/30/22 03/30/22 History losartan 100 mg tablet 100 mg PO DAILY 01/23/22 03/30/22 03/30/22 History ergocalciferol (vitamin D2) 1,250 1,250 mcg PO FR@1000 03/30/22 03/30/22 Unknown History mcg (50,000 unit) capsule (Vitamin D2) tramadol 50 mg tablet 50 mg PO DAILY PRN Pain 03/30/22 03/30/22 Unknown History vitamin B complex and vitamin C 1 cap PO DAILY 03/30/22 03/30/22 03/30/22 History no.20-folic acid 1 mg capsule (Virt-Caps) Physical Exam Vital Signs: Vital Signs: Last Vital Signs Temp 97 F 04/04/22 08:00 Pulse 66 04/04/22 08:00 Resp 18 04/04/22 08:00 BP 161/71 H 04/04/22 08:00 Pulse Ox 97 04/04/22 08:00 O2 Del Method 04/04/22 08:00 BMI result Body Mass Index 24.7 Const: General: cooperative, healthy appearing and comfortable Orientation/consciousness: oriented to person, oriented to place and oriented to time HEENT: Head: Yes normal to inspection Neck: Neck: Yes normal visual inspection Carotids: no bruits Chest: Chest palpation & inspection: normal inspection of the chest Resp: Effort & Inspection: normal respiratory effort and able to speak in complete sentences Auscultation: clear to auscultation bilaterally, no crackles, no rales, no rhonchi and no wheezes Cardio: Rate: regular rate Rhythm: regular rhythm Heart sounds: S1 normal heart sound present and S2 normal heart sound present Bruits: no carotid bruits Peripheral pulses: Peripheral pulses 2+ throughout GI: Inspection: Yes normal to inspection Skin: Other: Right stump poorly healing dry eschar mild erythema, left stump well-healed Hair: normal Neuro: General: oriented to person, oriented to place and oriented to time Cranial nerves: Yes CN's II-XII intact bilaterally and Yes Normal hearing present Cognition (Neuro): normal cognition Motor exam (neuro): 5/5 motor strength present throughout Extrem: Other: venous exam: No significant superficial varicosities or spider telangiectasi as, minimal edema General: No clubbing, No cyanosis and No edema Psych: Appearance: grossly normal Mental Status: mental status grossly normal Speech and movement: Normal speech and movement present Results Labs 04/04/22 05:46 04/04/22 05:46 Labs: Abnormal lab results 04/03/22 04/03/22 04/04/22 Range/Units 15:34 19:41 05:46 WBC 13.5 H (4.8-10.8) X10*3/uL RBC 2.45 L (4.60-5.80) X10*6/uL Hgb 7.8 L (14.0-18.0) g/dl Hct 24.2 L (42.0-52.0) % MCV 98.8 H (80.0-98.0) fL RDW 17.8 H (11.0-16.0) % Immature Gran % (Auto) 0.7 H (0.0-0.4) % Neut % (Auto) 87.8 H (45-73) % Lymph % (Auto) 5.0 L (20-40) % Lymph # (Auto) 0.7 L (1.2-4.9) X10*3/uL Abs Immat Gran (auto) 0.10 H (0.00-0.03) X10*3/uL Absolute Neuts (auto) 11.8 H (2.0-8.3) x10*3/uL Absolute Nucleated RBC 0.020 H (0.0-0.012) X10*3/uL BUN (9-16) mg/dL Creatinine (0.5-1.4) mg/dL POC Glucose 137 H 238 H (60-115) mg/dL Calcium (8.4-10.2) mg/dL 04/04/22 Range/Units 05:46 WBC (4.8-10.8) X10*3/uL RBC (4.60-5.80) X10*6/uL Hgb (14.0-18.0) g/dl Hct (42.0-52.0) % MCV (80.0-98.0) fL RDW (11.0-16.0) % Immature Gran % (Auto) (0.0-0.4) % Neut % (Auto) (45-73) % Lymph % (Auto) (20-40) % Lymph # (Auto) (1.2-4.9) X10*3/uL Abs Immat Gran (auto) (0.00-0.03) X10*3/uL Absolute Neuts (auto) (2.0-8.3) x10*3/uL Absolute Nucleated RBC (0.0-0.012) X10*3/uL BUN 27 H (9-16) mg/dL Creatinine 3.19 H (0.5-1.4) mg/dL POC Glucose (60-115) mg/dL Calcium 8.2 L (8.4-10.2) mg/dL Short CBC 04/04/22 Range/Units 05:46 WBC 13.5 H (4.8-10.8) X10*3/uL Hgb 7.8 L (14.0-18.0) g/dl Hct 24.2 L (42.0-52.0) % Plt Count 270 (160-400) X10*3/uL BMP 04/04/22 05:46 Sodium 136 Potassium 4.2 D Chloride 100 Carbon Dioxide 25 BUN 27 H Creatinine 3.19 H Calcium 8.2 L All other labs normal. Assessment and Plan (1) S/P bilateral BKA (below knee amputation): Status: Acute In short patient has nonhealing right lower extremity BKA. He has multiple medical issues and is currently undergoing treatment for our acute cholecystitis. I would like all that to resolve before we formally address this stump. In addition he is currently on dialysis. I did dressed do a dressing change. At the current time would recommend continued local wound care with Xeroform, 4 x 4 and Kerlix wrap to be changed daily. We will follow along with you. Thank you for allowing us to participate in his care. (2) Splenic infarct: Status: Acute There is a question of a splenic infarct. Had I do not believe this is true. There is a CTA from early in March where there is no evidence of this. If this is new on on set it is small. I would continue with current medical management and treatment for cholecystitis. Should there be any additional concern may benefit from a CT angio go but not warranted at the current time. We will continue to monitor with you. Time Spent With Patient Time: Total time managing care of this patient today ____ minutes. Procedures Date of Service Date of Service: 04/04/22
[2022-04-04] MEDS: Sevelamer Carbonate Tablet 800 MG TABLET 1600 MG PO ×2 (11:48→15:18)
--- NOTE | 2022-04-04 13:26 | PM.PNNEP ---
Subjective Subjective Date of Service: 04/04/22 Interval history: Events noted. All recent data reviewed; D/W Med Attending Physical Exam Vital Signs: Vital Signs: Last Vital Signs Temp 97 F 04/04/22 08:00 Pulse 66 04/04/22 08:00 Resp 18 04/04/22 08:00 BP 161/71 H 04/04/22 08:00 Pulse Ox 97 04/04/22 08:00 O2 Del Method 04/04/22 08:00 BMI result Body Mass Index 24.7 Const: General: no acute distress Eyes: EOM: EOMs intact bilaterally Resp: Auscultation: diminished lung sounds Cardio: Rate: regular rate GI: Palpation (GI): Soft to palpation Skin: General skin exam: no rashes or lesions noted Objective Data Labs 04/04/22 05:46 04/04/22 05:46 Labs: Laboratory Results - last 24 hr 04/03/22 04/03/22 04/04/22 15:34 19:41 05:46 WBC 13.5 H RBC 2.45 L Hgb 7.8 L Hct 24.2 L MCV 98.8 H MCH 31.8 MCHC 32.2 RDW 17.8 H Plt Count 270 MPV 12.1 Immature Gran % (Auto) 0.7 H Neut % (Auto) 87.8 H Lymph % (Auto) 5.0 L [place] % (Auto) 4.5 Eos % (Auto) 1.6 Baso % (Auto) 0.4 Lymph # (Auto) 0.7 L [place] # (Auto) 0.6 Eos # (Auto) 0.2 Baso # (Auto) 0.1 Abs Immat Gran (auto) 0.10 H Absolute Neuts (auto) 11.8 H Absolute Nucleated RBC 0.020 H Nucleated RBC % (auto) 0.1 Sodium Potassium Chloride Carbon Dioxide Anion Gap BUN Creatinine Estim Creat Clear Calc Estimated GFR POC Glucose 137 H 238 H Random Glucose Calcium 04/04/22 04/04/22 05:46 10:50 WBC RBC Hgb Hct MCV MCH MCHC RDW Plt Count MPV Immature Gran % (Auto) Neut % (Auto) Lymph % (Auto) [place] % (Auto) Eos % (Auto) Baso % (Auto) Lymph # (Auto) [place] # (Auto) Eos # (Auto) Baso # (Auto) Abs Immat Gran (auto) Absolute Neuts (auto) Absolute Nucleated RBC Nucleated RBC % (auto) Sodium 136 Potassium 4.2 D Chloride 100 Carbon Dioxide 25 Anion Gap 15 BUN 27 H Creatinine 3.19 H Estim Creat Clear Calc 17.4 Estimated GFR 19 POC Glucose 78 Random Glucose 68 Calcium 8.2 L Microbiology Microbiology Results: Microbiology 03/30/22 18:38 Blood - Venous Blood Culture - Preliminary No growth after 48 hours. 03/30/22 18:38 Blood - Venous Blood Culture - Preliminary No growth after 48 hours. Procedures Date of Service Date of Service: 04/04/22 Assessment & Plan Assessment and plan (1) ESRD (end stage renal disease) on dialysis: Status: Acute Assessment and Plan: usually has HD -- at [facility] dialysis unit HD? today to get back on schedule( MWF) renal diet; DANIEL; phosphate binders with meals C/W rest of current management Progress Note: Quality Stroke Does the patient have a stroke diagnosis?: No
--- NOTE | 2022-04-04 15:01 | MHC.CM.PN ---
Addendum entered by Laura Weaver RN 04/04/22 15:15: PATIENT IS SLOWLY IMPROVING NO DC ANTICIPATED AT THIS TIME. CM CONTINUING TO FOLLOW Original Note: NO PLAN FOR DC TODAY. [facility]
--- NOTE | 2022-04-04 15:11 | HO.PM.IMPN ---
Subjective Subjective Date of Service: 04/04/22 Interval History: Seen in follow up for cholecystitis Interval history: Patient resting after dialysis. Has no complaints at this time. RUQ pain has improved to 5/10 intermittently. IR drain in place. Still with leukocytosis Review of Systems Review of Systems: Yes all other systems are reviewed and are negative Physical Exam Vital Signs: Vital Signs: Last Vital Signs Temp 97 F 04/04/22 08:00 Pulse 66 04/04/22 08:00 Resp 18 04/04/22 08:00 BP 161/71 H 04/04/22 08:00 Pulse Ox 97 04/04/22 08:00 O2 Del Method 04/04/22 08:00 BMI result Body Mass Index 24.7 Constitutional - Awake and Alert, No apparent distress Eyes - PERRLA, EOMI Cardiovascular - S1S2, RRR, No edema Respiratory - Normal lung expansion, Normal respiratory effort, No respiratory distress, CTA bilaterally Gastrointestinal - NT / ND; +BS; No rebound or guarding. IR drain RUQ with serosanguineous/purulent and drainage Extremities - no calf tenderness bilaterally, no swelling Skin - Warm/Dry Neurological - Alert & oriented x3 Psychological - Appropriate affect Objective Data Active Medications Acetaminophen (Acetaminophen 325 Mg Tablet) 650 mg PO Q6H PRN PRN Reason: Pain, Mild (Pain Scale 1-3) Last Admin: 04/04/22 10:47 Dose: 650 mg Documented By: GREGG Amlodipine Besylate (Amlodipine Besylate 5 Mg Tablet) 5 mg PO BEDTIME [facility]; Protocol Last Admin: 04/03/22 20:58 Dose: 5 mg Documented By: HEIDE Aspirin (Aspirin Enteric Coated 81 Mg Tablet.Dr) 81 mg PO DAILY [facility] Last Admin: 04/04/22 10:46 Dose: 81 mg Documented By: GREGG Atorvastatin Calcium (Atorvastatin Calcium 40 Mg Tablet) 40 mg PO BEDTIME [facility] Last Admin: 04/03/22 20:58 Dose: 40 mg Documented By: HEIDE Bumetanide (Bumetanide 1 Mg Tablet) 1 mg PO DAILY [facility]; Protocol Last Admin: 04/04/22 10:46 Dose: 1 mg Documented By: GREGG Carvedilol (Carvedilol 25 Mg Tablet) 25 mg PO BID [facility]; Protocol Last Admin: 04/04/22 10:46 Dose: 25 mg Documented By: GREGG Dextrose (Dextrose 50 % 25 Gm/50 Ml Syringe) 25 gm IVPUSH Q15M PRN; Protocol PRN Reason: per Hypoglycemia Standing Ord. Last Admin: 04/02/22 13:53 Dose: 25 gm Documented By: GLENYS Dextrose (Dextrose 50 % 25 Gm/50 Ml Syringe) 25 gm IVPUSH Q15M PRN PRN Reason: per Hypoglycemia Standing Ord. Docusate Sodium (Docusate Sodium 100 Mg Capsule) 100 mg PO DAILY PRN PRN Reason: Constipation Ergocalciferol (Ergocalciferol (Vitamin D2) 1,250 Mcg Capsule) 1,250 mcg PO FR@1000 HAN[facility] Fenofibrate (Fenofibrate 160 Mg Tablet) 160 mg PO DAILY [facility] Last Admin: 04/04/22 10:46 Dose: 160 mg Documented By: GREGG Ferrous Sulfate (Ferrous Sulfate 324 Mg Tablet.Dr) 324 mg PO TID [facility] Last Admin: 04/04/22 10:46 Dose: 324 mg Documented By: GREGG Glucose (Glucose Gel 15 Gm Gel..Gram.) 15 gm PO Q15M PRN; Protocol PRN Reason: per Hypoglycemia Standing Ord. Heparin Sodium (Porcine) (Heparin Sodium,Porcine 5,000 Unit/Ml Vial) 5,000 unit SUBCUT Q12H [facility] Last Admin: 04/01/22 11:31 Dose: 5,000 unit Documented By: DARNELL Ceftriaxone Sodium 1 gm/ (Sodium Chloride) 50 mls @ 100 mls/hr IV Q24H [facility] Last Infusion: 04/03/22 23:15 Dose: 0 mls/hr Documented By: HEIDE Metronidazole (Flagyl) 500 mg in 100 mls @ 100 mls/hr IV Q8H [facility] Last Infusion: 04/04/22 07:18 Dose: 0 mls/hr Documented By: GREGG Insulin Glargine (Insulin Glargine,Hum.Rec.Anlog 100 Unit/Ml 10 Ml Vial) 8 unit SUBCUT BEDTIME [facility] Last Admin: 04/01/22 21:14 Dose: 8 unit Documented By: ORIANARISJarek Insulin Human Lispro (Insulin Lispro 100 Unit/Ml 3 Ml Vial) 0 unit SUBCUT QIDACHS [facility]; Protocol Last Admin: 04/04/22 10:57 Dose: Not Given Documented By: GREGG Non-Admin Reason: No Insulin Coverage Losartan Potassium (Losartan Potassium 50 Mg Tablet) 100 mg PO DAILY [facility]; Protocol Last Admin: 04/04/22 10:46 Dose: 100 mg Documented By: GREGG Multivitamins/Vitamin C (Multivitamin Tablet) 1 tab PO DAILY [facility] Last Admin: 04/04/22 10:46 Dose: 1 tab Documented By: GREGG Ondansetron HCl (Ondansetron Hcl 4 Mg/2 Ml Vial) 4 mg IVPUSH Q8H PRN PRN Reason: Nausea and Vomiting Oxycodone HCl (Oxycodone Hcl Immed Release 5 Mg Tablet) 5 mg PO Q6H PRN PRN Reason: Pain, Severe (Pain Scale 7-10) Last Admin: 04/04/22 10:46 Dose: 5 mg Documented By: GREGG Sevelamer Carbonate (Sevelamer Carbonate Tablet 800 Mg Tablet) 1,600 mg PO TIDWM [facility] Last Admin: 04/04/22 11:48 Dose: 1,600 mg Documented By: GREGG Sodium Chloride (0.9 % Sodium Chloride Flush 3 Ml Syringe) 3 ml IVFLUSH QSHIFT [facility] Last Admin: 04/04/22 10:46 Dose: 3 ml Documented By: GREGG Ursodiol (Ursodiol 300 Mg Capsule) 300 mg PO BID [facility] Last Admin: 04/04/22 10:46 Dose: 300 mg Documented By: GREGG Labs 04/04/22 05:46 04/04/22 05:46 Labs: Laboratory Results - last 24 hr 04/03/22 04/03/22 04/04/22 15:34 19:41 05:46 MCV 98.8 H MCH 31.8 MCHC 32.2 RDW 17.8 H Plt Count 270 MPV 12.1 Immature Gran % (Auto) 0.7 H Neut % (Auto) 87.8 H Lymph % (Auto) 5.0 L [place] % (Auto) 4.5 Eos % (Auto) 1.6 Baso % (Auto) 0.4 Lymph # (Auto) 0.7 L [place] # (Auto) 0.6 Eos # (Auto) 0.2 Baso # (Auto) 0.1 Abs Immat Gran (auto) 0.10 H Absolute Neuts (auto) 11.8 H Absolute Nucleated RBC 0.020 H Nucleated RBC % (auto) 0.1 Anion Gap Estim Creat Clear Calc Estimated GFR POC Glucose 137 H 238 H Random Glucose Calcium 04/04/22 04/04/22 05:46 10:50 MCV MCH MCHC RDW Plt Count MPV Immature Gran % (Auto) Neut % (Auto) Lymph % (Auto) [place] % (Auto) Eos % (Auto) Baso % (Auto) Lymph # (Auto) [place] # (Auto) Eos # (Auto) Baso # (Auto) Abs Immat Gran (auto) Absolute Neuts (auto) Absolute Nucleated RBC Nucleated RBC % (auto) Anion Gap 15 Estim Creat Clear Calc 17.4 Estimated GFR 19 POC Glucose 78 Random Glucose 68 Calcium 8.2 L Assessment and Plan (1) Dehiscence of operative wound: Status: Acute (2) Cholecystitis with cholelithiasis: Status: Acute (3) ESRD (end stage renal disease) on dialysis: Status: Acute (4) Decubitus ulcer: Status: Acute Plan 76yo M with ESRD on HD, DM2, recent R BKA presenting with acute abdominal pain and found to have acute cholecystitis # acute cholecystitis with cholelithiasis -POD1 s/p IR cholecystostomy. IR drain placed with 140 mls fluid drained so far -Pain well controlled -Continue ceftriaxone and flagyl (Initiated 03/30) per gen surg until WBC normalizes -Appreciate gen surgery input # splenic infarct - Per vascular, no intervention needed. Not present on recent abd CTA, likely small if present at all. Consider outpt abd CT with contrast if indicated - continue asa # sacral decubitus ulcer - appreciate wound care input -Silver alginate dressings and offloading advised #Wound dehiscence lateral BKA postop wound -vascular surgery aware of dehiscence. Wound is clean, dry, no purulent drainage -daily dressing changes per vascular surgery. Vascular surgery to follow # ESRD on HD MWF - Nephrology consulted, HD missed yesterday. HD today and tomorrow to get back on schedule - sevelamer - renal diet -Mild hyperkaelmia today- should resolve with HD. -Follow BMP # PAD - statin, resume asa # anemia of ESRD - Hb stable # HTN - continue carvedilol, amlodipine, losartan, bumetanide # DM2 with hypoglycemia - hold glargine, continue correction-dose lispro # VTE ppx: UFH held for IR procedure # dispo: TBD In my clinical judgment, the patient requires continued inpatient hospitalization for the following reasons: IV antibiotics + IR intervention Time Spent With Patient Time: Total time managing care of this patient today ____ minutes. Quality Stroke Does the patient have a stroke diagnosis?: No VTE Prior VTE?: No VTE Risk Level:: Medical - moderate - high VTE Device Contraindication: Treatment Not Indicated VTE Drug Contraindication: N/A - Med Ordered
[2022-04-04] MEDS: Docusate Sodium 100 MG CAPSULE PO (15:18)
[2022-04-04 16:00] VITALS: BP 148/59; PULSE 60; RESP 17; TEMP 36; O2SAT 95
[2022-04-04 16:22] LABS: Glucose, Whole Blood 198 mg/dL (60-115)
[2022-04-04] MEDS: Insulin Lispro 100 UNIT/ML 3 ML VIAL SUBCUT ×2 (17:01→20:36)
[2022-04-04 19:38] VITALS: BP 108/56; PULSE 63; RESP 16; TEMP 36.6; O2SAT 94
[2022-04-04 20:16] LABS: Glucose, Whole Blood 223 mg/dL (60-115)
[2022-04-04 20:27] LABS: Alanine Aminotransferase 31 U/L (0-40); Albumin Level 2.1 g/dL (3.5-5.0); Alkaline Phosphatase 147 U/L (39-117); Aspartate Amino Transferase 29 U/L (5-37); Bilirubin Direct 0.5 mg/dL (0.0-0.5); Bilirubin Total 0.8 mg/dL (0.0-1.0); Total Protein 5.3 g/dL (6.5-8.0)
[2022-04-04] MEDS: amLODIPine Besylate 5 MG TABLET PO (20:35)
[2022-04-04] MEDS: Atorvastatin Calcium 40 MG TABLET PO (20:35)
[2022-04-04] MEDS: cefTRIAXone sodium 1 GM in 0.9 % Sodium Chloride 50 ML IV (23:08)
[2022-04-05 03:09] VITALS: BP 147/64; PULSE 66; RESP 17; TEMP 36.2; O2SAT 94
[2022-04-05] MEDS: metroNIDAZOLE/NS 500 MG/100 ML PIGGYBACK 100 MG IV ×3 (06:22→21:20)
[2022-04-05 06:32] LABS: MANUAL DIFF FLAG NO
[2022-04-05 06:37] LABS: Basophils Absolute Auto 0.1 X10*3/uL (0.0-0.2); Basophils Percent Auto 0.5 % (0-2); Eosinophils Absolute Auto 0.3 X10*3/uL (0.0-0.4); Eosinophils Percent Auto 2.1 % (0-4); Hematocrit 24.8 % (42.0-52.0); Hemoglobin 7.8 g/dl (14.0-18.0); Imm Gran Abs Auto 0.08 X10*3/uL (0.00-0.03); Imm Gran Pct Auto 0.6 % (0.0-0.4); Lymphocytes Absolute Auto 0.7 X10*3/uL (1.2-4.9); Lymphocytes Percent Auto 5.7 % (20-40); Mean Corpuscular HGB Conc 31.5 g/dl (31.0-36.0); Mean Corpuscular Hemoglobin 31.6 pg (27.0-33.0); Mean Corpuscular Volume 100.4 fL (80.0-98.0); Mean Platelet Volume 11.7 fL (9.4-12.4); Monocytes Absolute Auto 0.7 X10*3/uL (0.1-1.2); Monocytes Percent Auto 5.3 % (2-11); Neutrophils Absolute Auto 11.2 x10*3/uL (2.0-8.3); Neutrophils Percent Auto 85.8 % (45-73); Platelet Count 299 X10*3/uL (160-400); Red Blood Count 2.47 X10*6/uL (4.60-5.80); Red Cell Distribution Width 17.9 % (11.0-16.0); White Blood Count 13.1 X10*3/uL (4.8-10.8)
[2022-04-05 06:59] LABS: Anion Gap 15 (12-20); Blood Urea Nitrogen 22 mg/dL (9-16); Calcium 8.4 mg/dL (8.4-10.2); Carbon Dioxide 22 mmol/L (22-29); Chloride 100 mmol/L (96-108); Estimated Glomerular Filt Rate 24; Glucose Random 119 mg/dL (60-115); Sodium 133 mmol/L (135-145)
[2022-04-05 07:27] VITALS: BP 138/60; PULSE 65; RESP 16; TEMP 37.6; O2SAT 99
[2022-04-05 07:36] LABS: Glucose, Whole Blood 179 mg/dL (60-115)
[2022-04-05] MEDS: Multivitamin TABLET 1 TAB PO (10:14)
[2022-04-05] MEDS: Sevelamer Carbonate Tablet 800 MG TABLET 1600 MG PO ×3 (10:14→17:31)
[2022-04-05] MEDS: UrsodioL 300 MG CAPSULE PO ×2 (10:15→21:21)
[2022-04-05] MEDS: Bumetanide 1 MG TABLET PO (10:15)
[2022-04-05] MEDS: Aspirin Enteric Coated 81 MG TABLET.DR PO (10:15)
[2022-04-05] MEDS: Fenofibrate 160 MG TABLET PO (10:15)
[2022-04-05] MEDS: Losartan Potassium 50 MG TABLET 100 MG PO (10:15)
[2022-04-05] MEDS: Ferrous Sulfate 324 MG TABLET.DR PO ×3 (10:16→21:20)
[2022-04-05] MEDS: 0.9 % Sodium Chloride Flush 3 ML SYRINGE IVFLUSH ×3 (10:16→21:21)
[2022-04-05] MEDS: carvediloL 25 MG TABLET PO ×2 (10:16→21:21)
[2022-04-05] MEDS: Insulin Lispro 100 UNIT/ML 3 ML VIAL SUBCUT ×3 (10:16→21:20)
[2022-04-05 11:17] LABS: Glucose, Whole Blood 173 mg/dL (60-115)
--- NOTE | 2022-04-05 11:44 | PM.PNNEP ---
Subjective Subjective Date of Service: 04/05/22 Interval history: Events noted. All recent data reviewed Physical Exam Vital Signs: Vital Signs: Last Vital Signs Temp 99.7 F 04/05/22 07:27 Pulse 65 04/05/22 07:27 Resp 16 04/05/22 07:27 BP 138/60 04/05/22 07:27 Pulse Ox 99 04/05/22 07:27 O2 Del Method 04/05/22 07:27 BMI result Body Mass Index 24.7 Const: General: no acute distress Eyes: EOM: EOMs intact bilaterally Resp: Auscultation: diminished lung sounds Cardio: Rate: regular rate GI: Palpation (GI): Soft to palpation Skin: General skin exam: no rashes or lesions noted Objective Data Labs 04/05/22 05:58 04/05/22 05:58 Labs: Laboratory Results - last 24 hr 04/04/22 04/04/22 04/04/22 05:46 16:18 20:13 WBC RBC Hgb Hct MCV MCH MCHC RDW Plt Count MPV Immature Gran % (Auto) Neut % (Auto) Lymph % (Auto) [place] % (Auto) Eos % (Auto) Baso % (Auto) Lymph # (Auto) [place] # (Auto) Eos # (Auto) Baso # (Auto) Abs Immat Gran (auto) Absolute Neuts (auto) Absolute Nucleated RBC Nucleated RBC % (auto) Sodium Potassium Chloride Carbon Dioxide Anion Gap BUN Creatinine Estim Creat Clear Calc Estimated GFR POC Glucose 198 H 223 H Random Glucose Calcium Total Bilirubin 0.8 Direct Bilirubin 0.5 AST 29 ALT 31 Alkaline Phosphatase 147 H Total Protein 5.3 L Albumin 2.1 L 04/05/22 04/05/22 04/05/22 05:58 05:58 07:29 WBC 13.1 H RBC 2.47 L Hgb 7.8 L Hct 24.8 L MCV 100.4 H MCH 31.6 MCHC 31.5 RDW 17.9 H Plt Count 299 MPV 11.7 Immature Gran % (Auto) 0.6 H Neut % (Auto) 85.8 H Lymph % (Auto) 5.7 L [place] % (Auto) 5.3 Eos % (Auto) 2.1 Baso % (Auto) 0.5 Lymph # (Auto) 0.7 L [place] # (Auto) 0.7 Eos # (Auto) 0.3 Baso # (Auto) 0.1 Abs Immat Gran (auto) 0.08 H Absolute Neuts (auto) 11.2 H Absolute Nucleated RBC 0.000 Nucleated RBC % (auto) 0.0 Sodium 133 L Potassium 4.0 Chloride 100 Carbon Dioxide 22 Anion Gap 15 BUN 22 H Creatinine 2.64 H Estim Creat Clear Calc 21.0 Estimated GFR 24 POC Glucose 179 H Random Glucose 119 H Calcium 8.4 Total Bilirubin Direct Bilirubin AST ALT Alkaline Phosphatase Total Protein Albumin 04/05/22 11:12 WBC RBC Hgb Hct MCV MCH MCHC RDW Plt Count MPV Immature Gran % (Auto) Neut % (Auto) Lymph % (Auto) [place] % (Auto) Eos % (Auto) Baso % (Auto) Lymph # (Auto) [place] # (Auto) Eos # (Auto) Baso # (Auto) Abs Immat Gran (auto) Absolute Neuts (auto) Absolute Nucleated RBC Nucleated RBC % (auto) Sodium Potassium Chloride Carbon Dioxide Anion Gap BUN Creatinine Estim Creat Clear Calc Estimated GFR POC Glucose 173 H Random Glucose Calcium Total Bilirubin Direct Bilirubin AST ALT Alkaline Phosphatase Total Protein Albumin Microbiology Microbiology Results: Microbiology 03/30/22 18:38 Blood - Venous Blood Culture - Final No growth after 5 days. 03/30/22 18:38 Blood - Venous Blood Culture - Final No growth after 5 days. Procedures Date of Service Date of Service: 04/05/22 Assessment & Plan Assessment and plan (1) ESRD (end stage renal disease) on dialysis: Status: Acute Assessment and Plan: usually has HD m-w- at [facility] HD? tomorrow?. Procrit [id number] Units ordered for today renal diet; phosphate binders with meals C/W rest of current management Time Spent With Patient Time: Total time managing care of this patient today ____ minutes. Progress Note: Quality Stroke Does the patient have a stroke diagnosis?: No
[2022-04-05 15:25] VITALS: BP 131/51; PULSE 62; RESP 18; TEMP 36.9; O2SAT 94
--- NOTE | 2022-04-05 15:39 | HO.PM.IMPN ---
Subjective Subjective Date of Service: 04/06/22 Interval History: Patient resting comfortably offers no acute complaints, no acute events overnight tolerating diet with no nausea, no abdominal pain, AZAEL drain with persistent bilious drainage, no fevers, no chills WBC remains elevated. Review of Systems Review of Systems: Yes all other systems are reviewed and are negative Physical Exam Vital Signs: Vital Signs: Last Vital Signs Temp 98.4 F 04/05/22 15:25 Pulse 62 04/05/22 15:25 Resp 18 04/05/22 15:25 BP 131/51 L 04/05/22 15:25 Pulse Ox 94 04/05/22 15:25 O2 Del Method 04/05/22 15:25 BMI result Body Mass Index 24.7 Const: Other: Gen: in no acute distress HEENT: sclera anicteric, moist mucus membranes Neck: supple Lungs: clear to auscultation bilaterally Heart: regular rate and rhythm, no murmurs Abd: soft, bowel sounds audible AZAEL drain with persistent bilious/serosanguineous drainage Ext: bilateral BKA, right stump dressing in place Skin: warm/well-perfused Neuro: alert and oriented x3, no focal findings Psych: appropriate affect Objective Data Active Medications Acetaminophen (Acetaminophen 325 Mg Tablet) 650 mg PO Q6H PRN PRN Reason: Pain, Mild (Pain Scale 1-3) Last Admin: 04/04/22 17:01 Dose: 650 mg Documented By: GREGG Amlodipine Besylate (Amlodipine Besylate 5 Mg Tablet) 5 mg PO BEDTIME [facility]; Protocol Last Admin: 04/04/22 20:35 Dose: 5 mg Documented By: OUSMANE Aspirin (Aspirin Enteric Coated 81 Mg Tablet.Dr) 81 mg PO DAILY [facility] Last Admin: 04/05/22 10:15 Dose: 81 mg Documented By: KENNETH Atorvastatin Calcium (Atorvastatin Calcium 40 Mg Tablet) 40 mg PO BEDTIME [facility] Last Admin: 04/04/22 20:35 Dose: 40 mg Documented By: OUSMANE Bumetanide (Bumetanide 1 Mg Tablet) 1 mg PO DAILY [facility]; Protocol Last Admin: 04/05/22 10:15 Dose: 1 mg Documented By: KENNETH Carvedilol (Carvedilol 25 Mg Tablet) 25 mg PO BID [facility]; Protocol Last Admin: 04/05/22 10:16 Dose: 25 mg Documented By: KENNETH Dextrose (Dextrose 50 % 25 Gm/50 Ml Syringe) 25 gm IVPUSH Q15M PRN; Protocol PRN Reason: per Hypoglycemia Standing Ord. Last Admin: 04/02/22 13:53 Dose: 25 gm Documented By: GLENYS Dextrose (Dextrose 50 % 25 Gm/50 Ml Syringe) 25 gm IVPUSH Q15M PRN PRN Reason: per Hypoglycemia Standing Ord. Docusate Sodium (Docusate Sodium 100 Mg Capsule) 100 mg PO DAILY PRN PRN Reason: Constipation Last Admin: 04/04/22 15:18 Dose: 100 mg Documented By: PEGGY-RIVHEIDY Ergocalciferol (Ergocalciferol (Vitamin D2) 1,250 Mcg Capsule) 1,250 mcg PO FR@1000 [facility] Fenofibrate (Fenofibrate 160 Mg Tablet) 160 mg PO DAILY [facility] Last Admin: 04/05/22 10:15 Dose: 160 mg Documented By: KENNETH Ferrous Sulfate (Ferrous Sulfate 324 Mg Tablet.Dr) 324 mg PO TID [facility] Last Admin: 04/05/22 13:35 Dose: 324 mg Documented By: KENNETH Glucose (Glucose Gel 15 Gm Gel..Gram.) 15 gm PO Q15M PRN; Protocol PRN Reason: per Hypoglycemia Standing Ord. Heparin Sodium (Porcine) (Heparin Sodium,Porcine 5,000 Unit/Ml Vial) 5,000 unit SUBCUT Q12H [facility] Last Admin: 04/01/22 11:31 Dose: 5,000 unit Documented By: DARNELL Ceftriaxone Sodium 1 gm/ (Sodium Chloride) 50 mls @ 100 mls/hr IV Q24H [facility] Last Infusion: 04/05/22 00:26 Dose: 0 mls/hr Documented By: OUSMANE Metronidazole (Flagyl) 500 mg in 100 mls @ 100 mls/hr IV Q8H [facility] Last Admin: 04/05/22 14:50 Dose: 100 mls/hr Documented By: KENNETH Insulin Glargine (Insulin Glargine,Hum.Rec.Anlog 100 Unit/Ml 10 Ml Vial) 8 unit SUBCUT BEDTIME [facility] Last Admin: 04/01/22 21:14 Dose: 8 unit Documented By: ORIANARISJarek Insulin Human Lispro (Insulin Lispro 100 Unit/Ml 3 Ml Vial) 0 unit SUBCUT QIDACHS [facility]; Protocol Last Admin: 04/05/22 13:35 Dose: 2 unit Documented By: KENNETH Losartan Potassium (Losartan Potassium 50 Mg Tablet) 100 mg PO DAILY [facility]; Protocol Last Admin: 04/05/22 10:15 Dose: 100 mg Documented By: KENNETH Multivitamins/Vitamin C (Multivitamin Tablet) 1 tab PO DAILY [facility] Last Admin: 04/05/22 10:14 Dose: 1 tab Documented By: KENNETH Ondansetron HCl (Ondansetron Hcl 4 Mg/2 Ml Vial) 4 mg IVPUSH Q8H PRN PRN Reason: Nausea and Vomiting Sevelamer Carbonate (Sevelamer Carbonate Tablet 800 Mg Tablet) 1,600 mg PO TIDWM [facility] Last Admin: 04/05/22 13:35 Dose: 1,600 mg Documented By: KENNETH Sodium Chloride (0.9 % Sodium Chloride Flush 3 Ml Syringe) 3 ml IVFLUSH QSHIFT [facility] Last Admin: 04/05/22 10:16 Dose: 3 ml Documented By: KENNETH Ursodiol (Ursodiol 300 Mg Capsule) 300 mg PO BID [facility] Last Admin: 04/05/22 10:15 Dose: 300 mg Documented By: KENNETH Labs 04/05/22 05:58 04/05/22 05:58 Labs: Laboratory Results - last 24 hr 04/04/22 04/04/22 04/04/22 05:46 16:18 20:13 MCV MCH MCHC RDW Plt Count MPV Immature Gran % (Auto) Neut % (Auto) Lymph % (Auto) [place] % (Auto) Eos % (Auto) Baso % (Auto) Lymph # (Auto) [place] # (Auto) Eos # (Auto) Baso # (Auto) Abs Immat Gran (auto) Absolute Neuts (auto) Absolute Nucleated RBC Nucleated RBC % (auto) Anion Gap Estim Creat Clear Calc Estimated GFR POC Glucose 198 H 223 H Random Glucose Calcium Total Bilirubin 0.8 Direct Bilirubin 0.5 AST 29 ALT 31 Alkaline Phosphatase 147 H Total Protein 5.3 L Albumin 2.1 L 04/05/22 04/05/22 04/05/22 05:58 05:58 07:29 MCV 100.4 H MCH 31.6 MCHC 31.5 RDW 17.9 H Plt Count 299 MPV 11.7 Immature Gran % (Auto) 0.6 H Neut % (Auto) 85.8 H Lymph % (Auto) 5.7 L [place] % (Auto) 5.3 Eos % (Auto) 2.1 Baso % (Auto) 0.5 Lymph # (Auto) 0.7 L [place] # (Auto) 0.7 Eos # (Auto) 0.3 Baso # (Auto) 0.1 Abs Immat Gran (auto) 0.08 H Absolute Neuts (auto) 11.2 H Absolute Nucleated RBC 0.000 Nucleated RBC % (auto) 0.0 Anion Gap 15 Estim Creat Clear Calc 21.0 Estimated GFR 24 POC Glucose 179 H Random Glucose 119 H Calcium 8.4 Total Bilirubin Direct Bilirubin AST ALT Alkaline Phosphatase Total Protein Albumin 04/05/22 11:12 MCV MCH MCHC RDW Plt Count MPV Immature Gran % (Auto) Neut % (Auto) Lymph % (Auto) [place] % (Auto) Eos % (Auto) Baso % (Auto) Lymph # (Auto) [place] # (Auto) Eos # (Auto) Baso # (Auto) Abs Immat Gran (auto) Absolute Neuts (auto) Absolute Nucleated RBC Nucleated RBC % (auto) Anion Gap Estim Creat Clear Calc Estimated GFR POC Glucose 173 H Random Glucose Calcium Total Bilirubin Direct Bilirubin AST ALT Alkaline Phosphatase Total Protein Albumin Microbiology Microbiology Results: Microbiology 03/30/22 18:38 Blood Culture - Final Blood - Venous No growth after 5 days. 03/30/22 18:38 Blood Culture - Final Blood - Venous No growth after 5 days. Assessment and Plan (1) Dehiscence of operative wound: Status: Acute (2) Cholecystitis with cholelithiasis: Status: Acute (3) ESRD (end stage renal disease) on dialysis: Status: Acute (4) Decubitus ulcer: Status: Acute Plan 76yo M with ESRD on HD, DM2, recent R BKA presenting with acute abdominal pain and found to have acute cholecystitis # acute cholecystitis with cholelithiasis -POD 3 s/p IR cholecystostomy. AZAEL drain with persistent significant drainage ,Pain well controlled -Continue ceftriaxone and flagyl (Initiated 03/30)day 7 , persistent leukocytosis , follow CBC, being followed by General surgery Dr. Sheikh. # splenic infarct - Per vascular, no intervention needed. Not present on recent abd CTA, likely small if present at all. Consider outpt abd CT with contrast if indicated - continue asa # sacral decubitus ulcer - appreciate wound care input,Silver alginate dressings and offloading. #Wound dehiscence lateral BKA postop wound -vascular surgery aware of dehiscence. Wound is clean, dry, no purulent drainage, continue daily dressing changes. # ESRD on HD MWF - continue sevelamer, renal diet -Mild hyperkaelmia resolved with HD. # PAD continue statin and aspirin # anemia of ESRD - Hb stable, received Procrit [id number] units today # HTN stable blood pressure, continue carvedilol, amlodipine, losartan, and bumetanide # DM2 with hypoglycemia, hypoglycemia resolved blood sugars stable, Lantus on hold continue correction dose lispro # VTE ppx: Resume heparin # dispo: TBD In my clinical judgment, the patient requires continued inpatient hospitalization for the following reasons: IV antibiotics and management of cholecystostomy tube Time Spent With Patient Time: Total time managing care of this patient today ____ minutes. Quality Stroke Does the patient have a stroke diagnosis?: No VTE Prior VTE?: No VTE Risk Level:: Medical - moderate - high VTE Device Contraindication: Treatment Not Indicated VTE Drug Contraindication: N/A - Med Ordered
[2022-04-05 16:26] LABS: Glucose, Whole Blood 105 mg/dL (60-115)
[2022-04-05 19:33] VITALS: BP 123/54; PULSE 71; RESP 18; TEMP 37.3; O2SAT 97
[2022-04-05 19:43] LABS: Glucose, Whole Blood 197 mg/dL (60-115)
[2022-04-05] MEDS: Atorvastatin Calcium 40 MG TABLET PO (21:20)
[2022-04-05] MEDS: amLODIPine Besylate 5 MG TABLET PO (21:21)
[2022-04-05] MEDS: Heparin Sodium,Porcine 5,000 UNIT/ML VIAL 5000 UNIT SUBCUT (23:40)
[2022-04-05] MEDS: cefTRIAXone sodium 1 GM in 0.9 % Sodium Chloride 50 ML IV (23:40)
[2022-04-06 03:47] VITALS: BP 144/60; PULSE 65; RESP 18; TEMP 36.4; O2SAT 93
[2022-04-06] MEDS: metroNIDAZOLE/NS 500 MG/100 ML PIGGYBACK 100 MG IV ×3 (06:14→21:27)
[2022-04-06 07:13] VITALS: BP 128/46; PULSE 64; RESP 16; TEMP 36.9; O2SAT 93
[2022-04-06 07:21] LABS: Glucose, Whole Blood 145 mg/dL (60-115)
[2022-04-06] MEDS: Losartan Potassium 50 MG TABLET 100 MG PO (07:41)
[2022-04-06] MEDS: Aspirin Enteric Coated 81 MG TABLET.DR PO (07:41)
[2022-04-06] MEDS: Sevelamer Carbonate Tablet 800 MG TABLET 1600 MG PO ×2 (07:41→17:22)
[2022-04-06] MEDS: Multivitamin TABLET 1 TAB PO (07:42)
[2022-04-06] MEDS: Ferrous Sulfate 324 MG TABLET.DR PO ×3 (07:42→21:27)
[2022-04-06] MEDS: Fenofibrate 160 MG TABLET PO (07:42)
[2022-04-06] MEDS: carvediloL 25 MG TABLET PO ×2 (07:42→21:27)
[2022-04-06] MEDS: UrsodioL 300 MG CAPSULE PO ×2 (07:42→21:27)
[2022-04-06] MEDS: Bumetanide 1 MG TABLET PO (07:42)
[2022-04-06] MEDS: 0.9 % Sodium Chloride Flush 3 ML SYRINGE IVFLUSH ×3 (07:50→21:28)
--- NOTE | 2022-04-06 08:57 | P.PNNP_ITS ---
Subjective Subjective Date of Service: 04/06/22 Interval history: Evaluated on HD today LUE AVF working very well with BFR 475ml/min Physical Exam Vital Signs: Vital Signs: Last Vital Signs Temp 98.5 F 04/06/22 07:13 Pulse 64 04/06/22 07:13 Resp 16 04/06/22 07:13 BP 128/46 L 04/06/22 07:13 Pulse Ox 93 04/06/22 07:13 O2 Del Method 04/06/22 07:13 BMI result Body Mass Index 24.7 Const: Other: Gen: in no acute distress HEENT: sclera anicteric, moist mucus membranes Neck: supple Lungs: clear to auscultation bilaterally Heart: regular rate and rhythm, no murmurs Abd: soft, bowel sounds audible AZAEL drain with persistent bilious/serosanguineous drainage Ext: bilateral BKA, right stump dressing in place Skin: warm/well-perfused Neuro: alert and oriented x3, no focal findings Psych: appropriate affect Objective Data Labs 04/05/22 05:58 04/05/22 05:58 Labs: Laboratory Results - last 24 hr 04/05/22 04/05/22 04/05/22 11:12 16:20 19:37 POC Glucose 173 H 105 197 H 04/06/22 07:16 POC Glucose 145 H Microbiology Microbiology Results: Microbiology 03/30/22 18:38 Blood - Venous Blood Culture - Final No growth after 5 days. 03/30/22 18:38 Blood - Venous Blood Culture - Final No growth after 5 days. Procedures Date of Service Date of Service: 04/06/22 Assessment & Plan Assessment and plan (1) Dehiscence of operative wound: Status: Acute (2) Cholecystitis with cholelithiasis: Status: Acute (3) ESRD (end stage renal disease) on dialysis: Status: Acute (4) Decubitus ulcer: Status: Acute Plan Mr. Jean-Pierre Calderón is a 76-year-old gentleman with past medical history of ESRD on HD (MWF @ [facility]), DM2, recent R BKA who presented with acute abdominal pain and found to have acute cholecystitis and is now s/p Cholecystostomy tube. Patient also has wound dehiscence of Right BKA stump undergoing operative management with Vascular. # ESRD MWF at [facility] LUE AVF in place Plan: - Dialysis today - Next HD will be SATURDAY to accomodate OR schedule on Saturday. - After Saturday we will continue dialysis on Sat per MWF schedule - Continue ceftriaxone and flagyl - Wound dehiscence lateral BKA postop wound vascular surgery will take pt to OR Saturday - continue sevelamer, renal diet - anemia of ESRD procrit orderd with HD # HTN stable blood pressure, continue carvedilol, amlodipine, losartan, and bu metanide Time Spent With Patient Time: Total time managing care of this patient today ____ minutes. Progress Note: Quality Stroke Does the patient have a stroke diagnosis?: No
--- NOTE | 2022-04-06 10:52 | HO.VASCPN ---
Subjective Subjective Date of Service: 04/06/22 Patient reports: no new complaints and feels better Interval history: Complex 76-year-old gentleman has undergone right BKA in early March. He presented to the hospital with episode of acute cholecystitis. On exam his right BKA stump has been nonhealing he now presents for follow-up Physical Exam Vital Signs: Vital Signs: Last Vital Signs Temp 98.5 F 04/06/22 07:13 Pulse 64 04/06/22 07:13 Resp 16 04/06/22 07:13 BP 128/46 L 04/06/22 07:13 Pulse Ox 93 04/06/22 07:13 O2 Del Method 04/06/22 07:13 BMI result Body Mass Index 24.7 Const: General: cooperative, healthy appearing and no acute distress Orientation/consciousness: oriented to person, oriented to place and oriented to time HEENT: Head: Yes normal to inspection Neck: Carotids: no bruits Chest: Chest palpation & inspection: normal inspection of the chest Resp: Effort & Inspection: normal respiratory effort and able to speak in complete sentences Auscultation: clear to auscultation bilaterally Cardio: Rate: regular rate Heart sounds: S1 normal heart sound present and S2 normal heart sound present GI: Inspection: Yes normal to inspection Skin: Other: Nonhealing right BKA stump General skin exam: no rashes or lesions noted Wounds: no wounds Neuro: General: oriented to person, oriented to place, oriented to time and CN's II-XI intact bilaterally Extrem: General: Yes normal to inspection, Yes full ROM and Yes no clubbing, cyanosis or edema Psych: Appearance: grossly normal and well kempt Speech and movement: Normal speech and movement present Affect: normal affect Progress Note: A&P Assessment and plan (1) Below-knee amputation of right lower extremity with complication: Status: Acute Plan In short patient will require right lower extremity BKA debridement for this nonhealing stump. Risks benefits complications were discussed in detail with the patient. He was in agreement. Case was discussed with the hospitalist team along with Nephrology. They will move his dialysis session to Saturday. Thank you for allowing us to assist in his care. If there are any questions or concerns please do not hesitate to contact us. Time Spent With Patient Time: Total time managing care of this patient today ____ minutes. Procedures Date of Service Date of Service: 04/06/22 Quality Stroke Does the patient have a stroke diagnosis?: No VTE Prior VTE?: No VTE Risk Level:: Medical - moderate - high VTE Device Contraindication: Treatment Not Indicated VTE Drug Contraindication: N/A - Med Ordered
--- NOTE | 2022-04-06 12:40 | MHC.CM.PN ---
PATIENT IS SCHEDULED FOR DEBRIDEMENT ON Saturday04/09/22 NO PLAN FOR DC THIS WEEKEND
--- NOTE | 2022-04-06 12:54 | MHC.CLN ---
F/U UNSTAGEABLE WOUND TO SACRUM. NON HEALING RIGHT BKA. DIET PER DIALYSIS PARAMETERS: DIABETIC 1800 KCALS, 2 GRAM SODIUM, LOW POTASSIUM, LOW PHOSPHORUS. ENSURE CLEAR TID PROVIDES ADDITIONAL 720 KCALS, 24 G PROTEIN. ADDITIONAL PROTEIN TO PROMOTE WOUND HEALING. INTAKE VARIABLE, 25-75%. FOLLOW FOR INTAKE AND WOUND HEALING.
[2022-04-06 13:23] VITALS: BP 130/88; PULSE 63; RESP 16; TEMP 36.2; O2SAT 95
[2022-04-06 13:25] LABS: Glucose, Whole Blood 134 mg/dL (60-115)
--- NOTE | 2022-04-06 15:15 | W.PM.IDCN ---
History of Present Illness Data of Consult Service Date: 04/05/22 Requesting physician: Gerardo Garcia Primary Care Provider: Sanjana Guerrero MD HPI Reason for consult: leukocytosis He presents with 6/10 RUQ pain. He had CT scan cholelithiasis and was seen by Surgery and cholecystotomy drain. He is on hemodialysis and has BKA and has diabetes. He has been on Ceftriaxone and Flagyl and still has leukocytosis. He has downward trend WBC 13,000. Review of Systems Review of Systems: Yes all other systems are reviewed and are negative PMF Past Medical History Medical History Anemia in chronic kidney disease Below-knee amputation of left lower extremity CVA (cerebral vascular accident) Diabetes Diabetes mellitus, with long-term current use of insulin Diarrhea End stage renal disease End-stage renal disease on hemodialysis Fever of unknown origin High cholesterol History of leg amputation Hypertension Microalbuminuria Mixed hyperlipidemia PAD (peripheral artery disease) Preoperative cardiovascular examination Family History Family History Father Myocardial infarction Mother No problems noted. Family history: reviewed and not pertinent Surgical History Surgical History History of eye surgery History of laminectomy History of surgery History of surgery on arm S/P CABG x 4 S/P unilateral BKA (below knee amputation) Social History Social History Household Members: Children Housing: Apartment Do you presently have visiting nurse or other home services: Yes (nursing aid) Alcohol intake: unknown Patient Tobacco Use Status: Never used Tobacco e-Cigarette/Vaping Use: Never Used Second Hand Smoke Exposure: No Advance Directives Date on File: 06/15/21 service: No Current occupational status: retired and disabled Cognitive needs: Yes Hearing needs: No Vision needs: No Meds Allergies Allergy/AdvReac Type Severity Reaction Status Date / Time lisinopril Allergy Intermediate hyperkalemi Verified 03/22/22 15:35 a hydralazine Allergy Unknown Verified 04/05/22 09:32 hydrochlorothiazide Allergy Unknown Verified 04/05/22 09:32 canagliflozin [Invokana] AdvReac Mild back pain Verified 03/22/22 15:35 lidocaine [From LIDOPRIL] AdvReac Mild Cough Verified 04/05/22 09:32 prilocaine [From LIDOPRIL] AdvReac Mild Cough Verified 04/05/22 09:32 Active Medications: Current Medications Acetaminophen (Acetaminophen 325 Mg Tablet) 650 mg PO Q6H PRN PRN Reason: Pain, Mild (Pain Scale 1-3) Last Admin: 04/04/22 17:01 Dose: 650 mg Amlodipine Besylate (Amlodipine Besylate 5 Mg Tablet) 5 mg PO BEDTIME [facility]; Protocol Last Admin: 04/05/22 21:21 Dose: 5 mg Aspirin (Aspirin Enteric Coated 81 Mg Tablet.Dr) 81 mg PO DAILY [facility] Last Admin: 04/06/22 07:41 Dose: 81 mg Atorvastatin Calcium (Atorvastatin Calcium 40 Mg Tablet) 40 mg PO BEDTIME [facility] Last Admin: 04/05/22 21:20 Dose: 40 mg Bumetanide (Bumetanide 1 Mg Tablet) 1 mg PO DAILY [facility]; Protocol Last Admin: 04/06/22 07:42 Dose: 1 mg Carvedilol (Carvedilol 25 Mg Tablet) 25 mg PO BID [facility]; Protocol Last Admin: 04/06/22 07:42 Dose: 25 mg Dextrose (Dextrose 50 % 25 Gm/50 Ml Syringe) 25 gm IVPUSH Q15M PRN; Protocol PRN Reason: per Hypoglycemia Standing Ord. Last Admin: 04/02/22 13:53 Dose: 25 gm Dextrose (Dextrose 50 % 25 Gm/50 Ml Syringe) 25 gm IVPUSH Q15M PRN PRN Reason: per Hypoglycemia Standing Ord. Docusate Sodium (Docusate Sodium 100 Mg Capsule) 100 mg PO DAILY PRN PRN Reason: Constipation Last Admin: 04/04/22 15:18 Dose: 100 mg Epoetin Jostin 2,000 unit/ (Epoetin Jostin 3,000 unit) 5,000 unit IVPUSH DIALYSIS X2 MOWEFR [facility] Ergocalciferol (Ergocalciferol (Vitamin D2) 1,250 Mcg Capsule) 1,250 mcg PO FR@1000 [facility] Last Admin: 04/06/22 11:18 Dose: Not Given Fenofibrate (Fenofibrate 160 Mg Tablet) 160 mg PO DAILY [facility] Last Admin: 04/06/22 07:42 Dose: 160 mg Ferrous Sulfate (Ferrous Sulfate 324 Mg Tablet.Dr) 324 mg PO TID [facility] Last Admin: 04/06/22 14:32 Dose: 324 mg Glucose (Glucose Gel 15 Gm Gel..Gram.) 15 gm PO Q15M PRN; Protocol PRN Reason: per Hypoglycemia Standing Ord. Heparin Sodium (Porcine) (Heparin Sodium,Porcine 5,000 Unit/Ml Vial) 5,000 unit SUBCUT Q12H [facility] Last Admin: 04/06/22 13:29 Dose: Not Given Ceftriaxone Sodium 1 gm/ (Sodium Chloride) 50 mls @ 100 mls/hr IV Q24H [facility] Last Infusion: 04/06/22 00:13 Dose: Infused Metronidazole (Flagyl) 500 mg in 100 mls @ 100 mls/hr IV Q8H [facility] Last Admin: 04/06/22 14:33 Dose: 100 mls/hr Insulin Glargine (Insulin Glargine,Hum.Rec.Anlog 100 Unit/Ml 10 Ml Vial) 8 unit SUBCUT BEDTIME [facility] Last Admin: 04/01/22 21:14 Dose: 8 unit Insulin Human Lispro (Insulin Lispro 100 Unit/Ml 3 Ml Vial) 0 unit SUBCUT QIDACHS [facility]; Protocol Last Admin: 04/06/22 13:29 Dose: Not Given Losartan Potassium (Losartan Potassium 50 Mg Tablet) 100 mg PO DAILY [facility]; Protocol Last Admin: 04/06/22 07:41 Dose: 100 mg Multivitamins/Vitamin C (Multivitamin Tablet) 1 tab PO DAILY [facility] Last Admin: 04/06/22 07:42 Dose: 1 tab Ondansetron HCl (Ondansetron Hcl 4 Mg/2 Ml Vial) 4 mg IVPUSH Q8H PRN PRN Reason: Nausea and Vomiting Sevelamer Carbonate (Sevelamer Carbonate Tablet 800 Mg Tablet) 1,600 mg PO TIDWM [facility] Last Admin: 04/06/22 13:32 Dose: Not Given Sodium Chloride (0.9 % Sodium Chloride Flush 3 Ml Syringe) 3 ml IVFLUSH QSHIFT [facility] Last Admin: 04/06/22 07:50 Dose: 3 ml Ursodiol (Ursodiol 300 Mg Capsule) 300 mg PO BID [facility] Last Admin: 04/06/22 07:42 Dose: 300 mg Home Medications Medication Instructions Recorded Confirmed Last Taken Type sevelamer carbonate 800 mg tablet 1,600 mg PO TIDWM 01/22/20 03/30/22 03/30/22 History amlodipine 5 mg tablet 5 mg PO BEDTIME 06/01/21 03/30/22 03/30/22 History aspirin 81 mg tablet,delayed 1 tab PO DAILY 06/01/21 03/30/22 03/30/22 History release carvedilol 25 mg tablet 1 tab PO BID 06/01/21 03/30/22 03/30/22 History ursodiol 300 mg capsule 1 cap PO BID 06/01/21 03/30/22 03/30/22 History losartan 100 mg tablet 100 mg PO DAILY 01/23/22 03/30/22 03/30/22 History ergocalciferol (vitamin D2) 1,250 1,250 mcg PO FR@1000 03/30/22 03/30/22 Unknown History mcg (50,000 unit) capsule (Vitamin D2) tramadol 50 mg tablet 50 mg PO DAILY PRN Pain 03/30/22 03/30/22 Unknown History vitamin B complex and vitamin C 1 cap PO DAILY 03/30/22 03/30/22 03/30/22 History no.20-folic acid 1 mg capsule (Virt-Caps) Physical Exam Vital Signs: Vital Signs: Last Vital Signs Temp 97.1 F 04/06/22 13:23 Pulse 63 04/06/22 13:23 Resp 16 04/06/22 13:23 BP 130/88 04/06/22 13:23 Pulse Ox 95 04/06/22 13:23 O2 Del Method 04/06/22 13:23 BMI result Body Mass Index 24.7 Const: General: cooperative HEENT: Head: Yes normal to inspection Face and sinus: Yes normal facial exam Mouth: Normal oral and palatal mucosa present Teeth and gingiva: dentition normal Eyes: General: appearance normal, both eyes and all related structures Pupils: Equal, round and reactive pupils present Resp: Effort & Inspection: normal respiratory effort Cardio: Rate: regular rate Rhythm: regular rhythm GI: Other: drain in place RUQ Palpation (GI): Soft to palpation and nontender : General: Yes no CVA tenderness Back/Spine/Pelvis: Back: no CVA tenderness Skin: General skin exam: no rashes or lesions noted Neuro: General: moves all extremities Cranial nerves: Yes Equal, round and reactive pupils present Extrem: General: Yes normal to inspection Psych: Appearance: grossly normal Results Labs 04/05/22 05:58 04/05/22 05:58 Microbiology Microbiology Results: Microbiology 03/30/22 18:38 Blood - Venous Blood Culture - Final No growth after 5 days. 03/30/22 18:38 Blood - Venous Blood Culture - Final No growth after 5 days. Assessment and Plan (1) Cholecystitis with cholelithiasis: Status: Acute He has leukocytosis related to cholithiasis but seems to be dissipating He has no specific organisms isolated. He has drainage from tube,similar color to before. (2) ESRD (end stage renal disease) on dialysis: Status: Acute (3) S/P bilateral BKA (below knee amputation): Status: Acute (4) Splenic infarct: Status: Acute Plan Continue Ceftriaxone and flagyl Repeat CT scan check for abscess and if unremarkabe consider po Ceftin and flagyl for a week. Time Spent With Patient Time: Total time managing care of this patient today ____ minutes.
[2022-04-06 15:33] VITALS: BP 143/62; RESP 18; O2SAT 98
[2022-04-06 16:19] LABS: Glucose, Whole Blood 252 mg/dL (60-115)
--- NOTE | 2022-04-06 16:48 | P.PNIM_ITS ---
Subjective Subjective Date of Service: 04/06/22 Interval History: Patient receiving hemodialysis offers no acute complaints noted to have serosanguineous drainage in AZAEL drain and clots at bottom of drain, tolerating diabetic diet. Review of Systems Review of Systems: Yes all other systems are reviewed and are negative Physical Exam Vital Signs: Vital Signs: Last Vital Signs Temp 97.1 F 04/06/22 13:23 Pulse 63 04/06/22 13:23 Resp 18 04/06/22 15:33 BP 143/62 H 04/06/22 15:33 Pulse Ox 98 04/06/22 15:33 O2 Del Method 04/06/22 15:33 BMI result Body Mass Index 24.7 Const: Other: Gen: in no acute distress HEENT: sclera anicteric, moist mucus membranes Neck: supple Lungs: clear to auscultation bilaterally Heart: regular rate and rhythm, no murmurs Abd: soft, bowel sounds audible AZAEL drain with persistent serosanguineous drainage Ext: bilateral BKA, right stump dressing in place Skin: warm/well-perfused Neuro: alert and oriented x3, no focal findings Psych: appropriate affect Objective Data Active Medications Acetaminophen (Acetaminophen 325 Mg Tablet) 650 mg PO Q6H PRN PRN Reason: Pain, Mild (Pain Scale 1-3) Last Admin: 04/04/22 17:01 Dose: 650 mg Documented By: GREGG Amlodipine Besylate (Amlodipine Besylate 5 Mg Tablet) 5 mg PO BEDTIME [facility]; Protocol Last Admin: 04/05/22 21:21 Dose: 5 mg Documented By: RUSTY Aspirin (Aspirin Enteric Coated 81 Mg Tablet.) 81 mg PO DAILY [facility] Last Admin: 04/06/22 07:41 Dose: 81 mg Documented By: KENNETH Atorvastatin Calcium (Atorvastatin Calcium 40 Mg Tablet) 40 mg PO BEDTIME [facility] Last Admin: 04/05/22 21:20 Dose: 40 mg Documented By: RUSTY Bumetanide (Bumetanide 1 Mg Tablet) 1 mg PO DAILY [facility]; Protocol Last Admin: 04/06/22 07:42 Dose: 1 mg Documented By: KENNETH Carvedilol (Carvedilol 25 Mg Tablet) 25 mg PO BID [facility]; Protocol Last Admin: 04/06/22 07:42 Dose: 25 mg Documented By: KENNETH Dextrose (Dextrose 50 % 25 Gm/50 Ml Syringe) 25 gm IVPUSH Q15M PRN; Protocol PRN Reason: per Hypoglycemia Standing Ord. Last Admin: 04/02/22 13:53 Dose: 25 gm Documented By: GLENYS Dextrose (Dextrose 50 % 25 Gm/50 Ml Syringe) 25 gm IVPUSH Q15M PRN PRN Reason: per Hypoglycemia Standing Ord. Docusate Sodium (Docusate Sodium 100 Mg Capsule) 100 mg PO DAILY PRN PRN Reason: Constipation Last Admin: 04/04/22 15:18 Dose: 100 mg Documented By: PEGGY-MERRY Epoetin Jostin 2,000 unit/ (Epoetin Jostin 3,000 unit) 5,000 unit IVPUSH DIALYSIS X2 MOWEFR [facility] Ergocalciferol (Ergocalciferol (Vitamin D2) 1,250 Mcg Capsule) 1,250 mcg PO FR@1000 [facility] Last Admin: 04/06/22 11:18 Dose: Not Given Documented By: KENNETH Non-Admin Reason: Pt at dialysis Fenofibrate (Fenofibrate 160 Mg Tablet) 160 mg PO DAILY [facility] Last Admin: 04/06/22 07:42 Dose: 160 mg Documented By: KENNETH Ferrous Sulfate (Ferrous Sulfate 324 Mg Tablet.Dr) 324 mg PO TID [facility] Last Admin: 04/06/22 14:32 Dose: 324 mg Documented By: KENNETH Glucose (Glucose Gel 15 Gm Gel..Gram.) 15 gm PO Q15M PRN; Protocol PRN Reason: per Hypoglycemia Standing Ord. Heparin Sodium (Porcine) (Heparin Sodium,Porcine 5,000 Unit/Ml Vial) 5,000 unit SUBCUT Q12H [facility] Last Admin: 04/06/22 13:29 Dose: Not Given Documented By: KENNETH Non-Admin Reason: pt at dialysis Ceftriaxone Sodium 1 gm/ (Sodium Chloride) 50 mls @ 100 mls/hr IV Q24H [facility] Last Infusion: 04/06/22 00:13 Dose: 0 mls/hr Documented By: RUSTY Metronidazole (Flagyl) 500 mg in 100 mls @ 100 mls/hr IV Q8H [facility] Last Admin: 04/06/22 14:33 Dose: 100 mls/hr Documented By: KENNETH Insulin Glargine (Insulin Glargine,Hum.Rec.Anlog 100 Unit/Ml 10 Ml Vial) 8 unit SUBCUT BEDTIME [facility] Last Admin: 04/01/22 21:14 Dose: 8 unit Documented By: SHERITA Insulin Human Lispro (Insulin Lispro 100 Unit/Ml 3 Ml Vial) 0 unit SUBCUT QIDACHS [facility]; Protocol Last Admin: 04/06/22 13:29 Dose: Not Given Documented By: KENNETH Non-Admin Reason: Pt at dialysis Losartan Potassium (Losartan Potassium 50 Mg Tablet) 100 mg PO DAILY [facility]; Protocol Last Admin: 04/06/22 07:41 Dose: 100 mg Documented By: KENNETH Multivitamins/Vitamin C (Multivitamin Tablet) 1 tab PO DAILY [facility] Last Admin: 04/06/22 07:42 Dose: 1 tab Documented By: KENNETH Ondansetron HCl (Ondansetron Hcl 4 Mg/2 Ml Vial) 4 mg IVPUSH Q8H PRN PRN Reason: Nausea and Vomiting Sevelamer Carbonate (Sevelamer Carbonate Tablet 800 Mg Tablet) 1,600 mg PO TIDWM [facility] Last Admin: 04/06/22 13:32 Dose: Not Given Documented By: KENNETH Non-Admin Reason: Pt at dialysis Sodium Chloride (0.9 % Sodium Chloride Flush 3 Ml Syringe) 3 ml IVFLUSH QSHIFT [facility] Last Admin: 04/06/22 16:25 Dose: 3 ml Documented By: PINO Ursodiol (Ursodiol 300 Mg Capsule) 300 mg PO BID [facility] Last Admin: 04/06/22 07:42 Dose: 300 mg Documented By: KENNETH Labs 04/05/22 05:58 04/05/22 05:58 Labs: Laboratory Results - last 24 hr 04/05/22 04/06/22 04/06/22 19:37 07:16 13:19 POC Glucose 197 H 145 H 134 H 04/06/22 16:13 POC Glucose 252 H Assessment and Plan (1) Cholecystitis with cholelithiasis: Status: Acute Plan 76yo M with ESRD on HD, DM2, recent R BKA presenting with acute abdominal pain and found to have acute cholecystitis # acute cholecystitis with cholelithiasis -POD 4 s/p IR cholecystostomy.? AZAEL drain with persistent significant drainage mostly serosanguineous, case discussed with Dr. Sheikh he recommend CT abdomen ,Pain well controlled -Continue ceftriaxone and flagyl (Initiated 03/30)day 8 , persistent leukocytosis , follow CBC, being followed by General surgery Dr. Sheikh. # splenic infarct - Per vascular, no intervention needed. Not present on recent abd CTA, likely small if present at all. Consider outpt abd CT with contrast if indicated - continue asa # sacral decubitus ulcer - appreciate wound care input,Silver alginate dressings and offloading. #Wound dehiscence lateral BKA postop wound Patient will undergo right lower extremity BKA debridement for nonhealing stump on Saturday, Nephrology will arrange for hemodialysis on Saturday will keep patient NPO Saturday night # ESRD on HD MWF -? continue sevelamer, renal diet , Saturday hemodialysis will be changed to Saturday since patient will be in OR -Mild hyperkaelmia? resolved with HD. # PAD continue statin and aspirin # anemia of ESRD - Hb stable, received Procrit 98013 units today # HTN stable blood pressure, continue carvedilol, amlodipine, losartan, and bumetanide # DM2 with hypoglycemia, hypoglycemia resolved blood sugars stable, Lantus on hold continue correction dose lispro # VTE ppx:? heparin # dispo: TBD In my clinical judgment, the patient requires continued inpatient hospitalization for the following reasons: IV antibiotics and management of ch olecystostomy tube and need for debridement of right BKA stump on Saturday Time Spent With Patient Time: Total time managing care of this patient today ____ minutes. Quality Stroke Does the patient have a stroke diagnosis?: No VTE Prior VTE?: No VTE Risk Level:: Medical - moderate - high VTE Device Contraindication: Treatment Not Indicated VTE Drug Contraindication: N/A - Med Ordered
[2022-04-06] MEDS: Insulin Lispro 100 UNIT/ML 3 ML VIAL SUBCUT (17:22)
[2022-04-06 19:33] VITALS: BP 131/55; PULSE 64; RESP 18; TEMP 37; O2SAT 93
[2022-04-06 20:25] LABS: Glucose, Whole Blood 156 mg/dL (60-115)
--- NOTE | 2022-04-06 20:51 | PC.NURSE ---
procrit given on floor dose and order verifyed with pharmacy it wasnt given in dialysis
[2022-04-06] MEDS: Atorvastatin Calcium 40 MG TABLET PO (21:27)
[2022-04-06] MEDS: amLODIPine Besylate 5 MG TABLET PO (21:27)
[2022-04-06] MEDS: cefTRIAXone sodium 1 GM in 0.9 % Sodium Chloride 50 ML IV (22:44)
[2022-04-06] MEDS: Heparin Sodium,Porcine 5,000 UNIT/ML VIAL 5000 UNIT SUBCUT (22:44)
[2022-04-07 03:12] VITALS: BP 150/66; PULSE 65; RESP 18; TEMP 36.6; O2SAT 94
[2022-04-07] MEDS: metroNIDAZOLE/NS 500 MG/100 ML PIGGYBACK 100 MG IV ×3 (05:39→21:43)
[2022-04-07 06:12] LABS: Hematocrit 24.7 % (42.0-52.0); Mean Corpuscular HGB Conc 32.4 g/dl (31.0-36.0); Mean Corpuscular Hemoglobin 31.9 pg (27.0-33.0); Mean Corpuscular Volume 98.4 fL (80.0-98.0); Mean Platelet Volume 11.2 fL (9.4-12.4); Platelet Count 295 X10*3/uL (160-400); Red Blood Count 2.51 X10*6/uL (4.60-5.80); Red Cell Distribution Width 18.6 % (11.0-16.0)
[2022-04-07 07:42] VITALS: BP 147/59; PULSE 62; RESP 18; TEMP 36.3; O2SAT 96
[2022-04-07 07:48] LABS: Glucose, Whole Blood 121 mg/dL (60-115)
[2022-04-07] MEDS: Aspirin Enteric Coated 81 MG TABLET.DR PO (08:39)
[2022-04-07] MEDS: Losartan Potassium 50 MG TABLET 100 MG PO (08:39)
[2022-04-07] MEDS: Fenofibrate 160 MG TABLET PO (08:39)
[2022-04-07] MEDS: Bumetanide 1 MG TABLET PO (08:39)
[2022-04-07] MEDS: Sevelamer Carbonate Tablet 800 MG TABLET 1600 MG PO ×3 (08:39→17:06)
[2022-04-07] MEDS: carvediloL 25 MG TABLET PO ×2 (08:39→21:43)
[2022-04-07] MEDS: Multivitamin TABLET 1 TAB PO (08:40)
[2022-04-07] MEDS: UrsodioL 300 MG CAPSULE PO ×2 (08:40→21:43)
[2022-04-07] MEDS: Ferrous Sulfate 324 MG TABLET.DR PO ×3 (08:40→21:43)
[2022-04-07] MEDS: 0.9 % Sodium Chloride Flush 3 ML SYRINGE IVFLUSH ×3 (08:40→21:49)
[2022-04-07] MEDS: Heparin Sodium,Porcine 5,000 UNIT/ML VIAL 5000 UNIT SUBCUT ×2 (10:34→23:04)
[2022-04-07 11:40] LABS: Glucose, Whole Blood 184 mg/dL (60-115)
[2022-04-07] MEDS: Insulin Lispro 100 UNIT/ML 3 ML VIAL SUBCUT ×3 (12:42→21:43)
--- NOTE | 2022-04-07 12:51 | PM.PNNEP ---
Subjective Subjective Date of Service: 04/07/22 Interval history: dialyzed yesterday Physical Exam Vital Signs: Vital Signs: Last Vital Signs Temp 97.4 F 04/07/22 07:42 Pulse 62 04/07/22 07:42 Resp 18 04/07/22 07:42 BP 147/59 H 04/07/22 07:42 Pulse Ox 96 04/07/22 07:42 O2 Del Method 04/07/22 07:42 BMI result Body Mass Index 24.7 Const: General: alert and awake Orientation/consciousness: oriented to person, oriented to place and oriented to time HEENT: Head: Yes normocephalic and Yes atraumatic Chest: Chest palpation & inspection: normal inspection of the chest Resp: Effort & Inspection: normal respiratory effort, no audible wheezes and no cough Auscultation: no crackles Cardio: Rate: regular rate Rhythm: regular rhythm GI: Palpation (GI): nontender Neuro: General: oriented to person, oriented to place and oriented to time Extrem: General: No edema Objective Data Labs 04/07/22 05:53 04/05/22 05:58 Labs: Laboratory Results - last 24 hr 04/06/22 04/06/22 04/06/22 13:19 16:13 20:21 WBC RBC Hgb Hct MCV MCH MCHC RDW Plt Count MPV Absolute Nucleated RBC Nucleated RBC % (auto) POC Glucose 134 H 252 H 156 H 04/07/22 04/07/22 04/07/22 05:53 07:41 11:30 WBC 10.0 RBC 2.51 L Hgb 8.0 L Hct 24.7 L MCV 98.4 H MCH 31.9 MCHC 32.4 RDW 18.6 H Plt Count 295 MPV 11.2 Absolute Nucleated RBC 0.000 Nucleated RBC % (auto) 0.0 POC Glucose 121 H 184 H Microbiology Microbiology Results: Microbiology 03/30/22 18:38 Blood - Venous Blood Culture - Final No growth after 5 days. 03/30/22 18:38 Blood - Venous Blood Culture - Final No growth after 5 days. Procedures Date of Service Date of Service: 04/07/22 Assessment & Plan Assessment and plan (1) Dehiscence of operative wound: Status: Acute (2) Cholecystitis with cholelithiasis: Status: Acute (3) ESRD (end stage renal disease) on dialysis: Status: Acute (4) Decubitus ulcer: Status: Acute Plan Mr. Jean-Pierre Calderón is a 76-year-old gentleman with past medical history of ESRD on HD (MWF @ [facility]), DM2, recent R BKA who presented with acute abdominal pain and found to have acute cholecystitis and is now s/p Cholecystostomy tube. Patient also has wound dehiscence of Right BKA stump undergoing operative management with Vascular. # ESRD MWF at [facility] LUE AVF in place Plan: - Last dialyzed 04/06/22 - Next HD will be SATURDAY to accomodate OR schedule on Saturday. - After Saturday we will continue dialysis on Sat per MWF schedule - Continue ceftriaxone and flagyl - Wound dehiscence lateral BKA postop wound vascular surgery will take pt to OR Saturday -? continue sevelamer, renal diet - anemia of ESRD procrit orderd with HD # HTN stable blood pressure, continue carvedilol, amlodipine, losartan, and bumetanide Time Spent With Patient Time: Total time managing care of this patient today ____ minutes. Progress Note: Quality Stroke Does the patient have a stroke diagnosis?: No
--- NOTE | 2022-04-07 13:53 | HO.PM.IMPN ---
Subjective Subjective Date of Service: 04/07/22 Interval History: Complains of mild discomfort overt percutaneous drain; declines pain med Review of Systems Denies chest pain Denies shortness of breath Denies nausea vomiting diarrhea Denies fever chills Physical Exam Vital Signs: Vital Signs: Last Vital Signs Temp 97.4 F 04/07/22 07:42 Pulse 62 04/07/22 07:42 Resp 18 04/07/22 07:42 BP 147/59 H 04/07/22 07:42 Pulse Ox 96 04/07/22 07:42 O2 Del Method 04/07/22 07:42 BMI result Body Mass Index 24.7 Const: Other: Awake no acute distress Resp: Other: Clear to auscultation bilaterally no rales rhonchi or wheezes Cardio: Other: No S4; positive S1-S2; S3 murmurs rubs or gallops GI: Other: Mild tenderness about percutaneous drain right upper quadrant; bowel sounds quiet Extrem: Other: Wound dehiscence right amputation site Objective Data Active Medications Acetaminophen (Acetaminophen 325 Mg Tablet) 650 mg PO Q6H PRN PRN Reason: Pain, Mild (Pain Scale 1-3) Last Admin: 04/04/22 17:01 Dose: 650 mg Documented By: GREGG Amlodipine Besylate (Amlodipine Besylate 5 Mg Tablet) 5 mg PO BEDTIME [facility]; Protocol Last Admin: 04/06/22 21:27 Dose: 5 mg Documented By: CY Aspirin (Aspirin Enteric Coated 81 Mg Tablet.) 81 mg PO DAILY [facility] Last Admin: 04/07/22 08:39 Dose: 81 mg Documented By: SOM Atorvastatin Calcium (Atorvastatin Calcium 40 Mg Tablet) 40 mg PO BEDTIME [facility] Last Admin: 04/06/22 21:27 Dose: 40 mg Documented By: CY Bumetanide (Bumetanide 1 Mg Tablet) 1 mg PO DAILY [facility]; Protocol Last Admin: 04/07/22 08:39 Dose: 1 mg Documented By: SOM Carvedilol (Carvedilol 25 Mg Tablet) 25 mg PO BID [facility]; Protocol Last Admin: 04/07/22 08:39 Dose: 25 mg Documented By: SOM Dextrose (Dextrose 50 % 25 Gm/50 Ml Syringe) 25 gm IVPUSH Q15M PRN; Protocol PRN Reason: per Hypoglycemia Standing Ord. Last Admin: 04/02/22 13:53 Dose: 25 gm Documented By: GLENYS Dextrose (Dextrose 50 % 25 Gm/50 Ml Syringe) 25 gm IVPUSH Q15M PRN PRN Reason: per Hypoglycemia Standing Ord. Docusate Sodium (Docusate Sodium 100 Mg Capsule) 100 mg PO DAILY PRN PRN Reason: Constipation Last Admin: 04/04/22 15:18 Dose: 100 mg Documented By: GREGG Epoetin Jostin 2,000 unit/ (Epoetin Jostin 3,000 unit) 5,000 unit IVPUSH DIALYSIS X2 MOWEFR [facility] Last Admin: 04/06/22 20:50 Dose: Not Given Documented By: CY Non-Admin Reason: already scanned and given with previous order Ergocalciferol (Ergocalciferol (Vitamin D2) 1,250 Mcg Capsule) 1,250 mcg PO FR@1000 [facility] Last Admin: 04/06/22 11:18 Dose: Not Given Documented By: KENNETH Non-Admin Reason: Pt at dialysis Fenofibrate (Fenofibrate 160 Mg Tablet) 160 mg PO DAILY [facility] Last Admin: 04/07/22 08:39 Dose: 160 mg Documented By: SOM Ferrous Sulfate (Ferrous Sulfate 324 Mg Tablet.) 324 mg PO TID [facility] Last Admin: 04/07/22 08:40 Dose: 324 mg Documented By: SOM Glucose (Glucose Gel 15 Gm Gel..Gram.) 15 gm PO Q15M PRN; Protocol PRN Reason: per Hypoglycemia Standing Ord. Heparin Sodium (Porcine) (Heparin Sodium,Porcine 5,000 Unit/Ml Vial) 5,000 unit SUBCUT Q12H [facility] Last Admin: 04/07/22 10:34 Dose: 5,000 unit Documented By: SOM Ceftriaxone Sodium 1 gm/ (Sodium Chloride) 50 mls @ 100 mls/hr IV Q24H [facility] Last Infusion: 04/06/22 23:34 Dose: 100 mls/hr Documented By: CY Metronidazole (Flagyl) 500 mg in 100 mls @ 100 mls/hr IV Q8H [facility] Last Infusion: 04/07/22 06:59 Dose: 0 mls/hr Documented By: CY Insulin Glargine (Insulin Glargine,Hum.Rec.Anlog 100 Unit/Ml 10 Ml Vial) 8 unit SUBCUT BEDTIME [facility] Last Admin: 04/01/22 21:14 Dose: 8 unit Documented By: ORIANARISJarek Insulin Human Lispro (Insulin Lispro 100 Unit/Ml 3 Ml Vial) 0 unit SUBCUT QIDACHS [facility]; Protocol Last Admin: 04/07/22 12:42 Dose: 2 unit Documented By: SOM Losartan Potassium (Losartan Potassium 50 Mg Tablet) 100 mg PO DAILY [facility]; Protocol Last Admin: 04/07/22 08:39 Dose: 100 mg Documented By: SOM Multivitamins/Vitamin C (Multivitamin Tablet) 1 tab PO DAILY [facility] Last Admin: 04/07/22 08:40 Dose: 1 tab Documented By: SOM Ondansetron HCl (Ondansetron Hcl 4 Mg/2 Ml Vial) 4 mg IVPUSH Q8H PRN PRN Reason: Nausea and Vomiting Sevelamer Carbonate (Sevelamer Carbonate Tablet 800 Mg Tablet) 1,600 mg PO TIDWM [facility] Last Admin: 04/07/22 12:42 Dose: 1,600 mg Documented By: SOM Sodium Chloride (0.9 % Sodium Chloride Flush 3 Ml Syringe) 3 ml IVFLUSH QSHIFT [facility] Last Admin: 04/07/22 08:40 Dose: 3 ml Documented By: SOM Ursodiol (Ursodiol 300 Mg Capsule) 300 mg PO BID [facility] Last Admin: 04/07/22 08:40 Dose: 300 mg Documented By: SOM Labs 04/07/22 05:53 04/05/22 05:58 Labs: Laboratory Results - last 24 hr 04/06/22 04/06/22 04/07/22 16:13 20:21 05:53 MCV 98.4 H MCH 31.9 MCHC 32.4 RDW 18.6 H Plt Count 295 MPV 11.2 Absolute Nucleated RBC 0.000 Nucleated RBC % (auto) 0.0 POC Glucose 252 H 156 H 04/07/22 04/07/22 07:41 11:30 MCV MCH MCHC RDW Plt Count MPV Absolute Nucleated RBC Nucleated RBC % (auto) POC Glucose 121 H 184 H Assessment and Plan (1) Cholecystitis with cholelithiasis: Status: Acute (2) Dehiscence of operative wound: Status: Acute (3) ESRD (end stage renal disease): Status: Acute (4) Hypertension: Status: Acute Plan 76yo M with ESRD on HD, DM2, recent R BKA presenting with acute abdominal pain and found to have acute cholecystitis; wound dehiscence right stump 1.Acute cholecystitis with cholelithiasis -POD 5 s/p IR cholecystostomy.?... Continues to drain -Continue ceftriaxone and flagyl (8) -repeat CT abdomen fails to demonstrate an abscess; gall bag flat around tube. 2.Wound dehiscence lateral BKA postop wound -right lower extremity BKA debridement for nonhealing stump on04/09/22 3.ESRD on HD MWF -? continue sevelamer, renal diet -HD to be changed to Saturday by Renal to accommodate OR schedule on Saturday -follow renals/divalents 4.Anemia(ESRD) -Procrit as per Renal 5.HTN -acceptable control on current therapies -adjust as indicated 6.DM2 -acceptable control off therapies -continue correctional scale Heparin Full Code In my clinical judgment, the patient requires continued inpatient hospitalization for the following reasons: IV antibiotics and management of cholecystostomy tube and need for debridement of right BKA stump on Saturday Time Spent With Patient Time: Total time managing care of this patient today ____ minutes. Quality Stroke Does the patient have a stroke diagnosis?: No VTE Prior VTE?: No VTE Risk Level:: Medical - moderate - high VTE Device Contraindication: Treatment Not Indicated VTE Drug Contraindication: N/A - Med Ordered
[2022-04-07 16:34] VITALS: BP 144/63; PULSE 63; RESP 16; TEMP 36.1; O2SAT 100
[2022-04-07 16:40] LABS: Glucose, Whole Blood 194 mg/dL (60-115)
[2022-04-07 19:52] VITALS: BP 145/57; PULSE 66; RESP 16; TEMP 36.1; O2SAT 97
[2022-04-07 20:37] LABS: Glucose, Whole Blood 159 mg/dL (60-115)
[2022-04-07] MEDS: Atorvastatin Calcium 40 MG TABLET PO (21:43)
[2022-04-07] MEDS: amLODIPine Besylate 5 MG TABLET PO (21:43)
[2022-04-07] MEDS: cefTRIAXone sodium 1 GM in 0.9 % Sodium Chloride 50 ML IV (23:04)
[2022-04-08 03:38] VITALS: BP 149/62; PULSE 61; RESP 16; TEMP 36.8; O2SAT 94
[2022-04-08] MEDS: metroNIDAZOLE/NS 500 MG/100 ML PIGGYBACK 100 MG IV ×3 (05:12→20:13)
[2022-04-08] MEDS: Docusate Sodium 100 MG CAPSULE PO (06:45)
[2022-04-08 07:25] VITALS: BP 141/58; PULSE 64; RESP 18; TEMP 36.7; O2SAT 94
[2022-04-08 07:44] LABS: Glucose, Whole Blood 103 mg/dL (60-115)
[2022-04-08] MEDS: Bumetanide 1 MG TABLET PO (08:09)
[2022-04-08] MEDS: Aspirin Enteric Coated 81 MG TABLET.DR PO (08:09)
[2022-04-08] MEDS: carvediloL 25 MG TABLET PO ×2 (08:09→20:13)
[2022-04-08] MEDS: Ferrous Sulfate 324 MG TABLET.DR PO ×3 (08:09→20:13)
[2022-04-08] MEDS: Losartan Potassium 50 MG TABLET 100 MG PO (08:09)
[2022-04-08] MEDS: Fenofibrate 160 MG TABLET PO (08:09)
[2022-04-08] MEDS: Multivitamin TABLET 1 TAB PO (08:09)
[2022-04-08] MEDS: Sevelamer Carbonate Tablet 800 MG TABLET 1600 MG PO ×3 (08:09→17:04)
[2022-04-08] MEDS: UrsodioL 300 MG CAPSULE PO ×2 (08:10→20:13)
[2022-04-08] MEDS: 0.9 % Sodium Chloride Flush 3 ML SYRINGE IVFLUSH ×3 (08:10→20:14)
--- NOTE | 2022-04-08 10:37 | PM.PNNEP ---
Subjective Subjective Date of Service: 04/08/22 Interval history: no events planing HD Saturday rather than Saturday to allow for OR time tomorrow. Physical Exam Vital Signs: Vital Signs: Last Vital Signs Temp 98.0 F 04/08/22 07:25 Pulse 64 04/08/22 07:25 Resp 18 04/08/22 07:25 BP 141/58 H 04/08/22 07:25 Pulse Ox 94 04/08/22 07:25 O2 Del Method 04/08/22 07:25 BMI result Body Mass Index 24.7 Const: General: alert and awake Orientation/consciousness: oriented to person, oriented to place and oriented to time HEENT: Head: Yes normocephalic and Yes atraumatic Chest: Chest palpation & inspection: normal inspection of the chest Resp: Effort & Inspection: normal respiratory effort, no audible wheezes and no cough Auscultation: no crackles Cardio: Rate: regular rate Rhythm: regular rhythm GI: Palpation (GI): nontender Neuro: General: oriented to person, oriented to place and oriented to time Extrem: General: No edema Objective Data Labs 04/07/22 05:53 04/05/22 05:58 Labs: Laboratory Results - last 24 hr 04/07/22 04/07/22 04/07/22 11:30 16:36 20:33 POC Glucose 184 H 194 H 159 H 04/08/22 07:23 POC Glucose 103 Microbiology Microbiology Results: Microbiology 03/30/22 18:38 Blood - Venous Blood Culture - Final No growth after 5 days. 03/30/22 18:38 Blood - Venous Blood Culture - Final No growth after 5 days. Procedures Date of Service Date of Service: 04/08/22 Assessment & Plan Assessment and plan (1) Dehiscence of operative wound: Status: Acute (2) Cholecystitis with cholelithiasis: Status: Acute (3) ESRD (end stage renal disease) on dialysis: Status: Acute (4) Decubitus ulcer: Status: Acute Plan Mr. Jean-Pierre Calderón is a 76-year-old gentleman with past medical history of ESRD on HD (MWF @ [facility]), DM2, recent R BKA who presented with acute abdominal pain and found to have acute cholecystitis and is now s/p Cholecystostomy tube. Patient also has wound dehiscence of Right BKA stump undergoing operative management with Vascular. # ESRD MWF at [place] [facility] in place Plan: - Last dialyzed 04/06/22 - Next HD will be SATURDAY to accomodate OR schedule on Saturday. - After Saturday we will continue dialysis on Sat per MWF schedule - Continue ceftriaxone and flagyl - Wound dehiscence lateral BKA postop wound vascular surgery will take pt to OR Saturday -? continue sevelamer, renal diet - anemia of ESRD procrit orderd with HD # HTN stable blood pressure, continue carvedilol, amlodipine, losartan, and bumetanide Time Spent With Patient Time: Total time managing care of this patient today ____ minutes. Progress Note: Quality Stroke Does the patient have a stroke diagnosis?: No
--- NOTE | 2022-04-08 11:01 | HO.PM.IMPN ---
Subjective Subjective Date of Service: 04/08/22 Interval History: No acute issues overnight. Voices no complaints of pain Review of Systems Denies chest pain Denies shortness of breath Denies nausea vomiting diarrhea Denies fever chills Physical Exam Vital Signs: Vital Signs: Last Vital Signs Temp 98.0 F 04/08/22 07:25 Pulse 64 04/08/22 07:25 Resp 18 04/08/22 07:25 BP 141/58 H 04/08/22 07:25 Pulse Ox 94 04/08/22 07:25 O2 Del Method 04/08/22 07:25 BMI result Body Mass Index 24.7 Const: Other: Awake no acute distress Resp: Other: Clear to auscultation bilaterally no rales rhonchi or wheezes Cardio: Other: No S4; positive S1-S2; S3 murmurs rubs or gallops GI: Other: Mild tenderness about percutaneous drain right upper quadrant; bowel sounds quiet Extrem: Other: Wound dehiscence right amputation site Objective Data Active Medications Acetaminophen (Acetaminophen 325 Mg Tablet) 650 mg PO Q6H PRN PRN Reason: Pain, Mild (Pain Scale 1-3) Last Admin: 04/04/22 17:01 Dose: 650 mg Documented By: GREGG Amlodipine Besylate (Amlodipine Besylate 5 Mg Tablet) 5 mg PO BEDTIME [facility]; Protocol Last Admin: 04/07/22 21:43 Dose: 5 mg Documented By: CY Aspirin (Aspirin Enteric Coated 81 Mg Tablet.) 81 mg PO DAILY [facility] Last Admin: 04/08/22 08:09 Dose: 81 mg Documented By: SOM Atorvastatin Calcium (Atorvastatin Calcium 40 Mg Tablet) 40 mg PO BEDTIME [facility] Last Admin: 04/07/22 21:43 Dose: 40 mg Documented By: CY Bumetanide (Bumetanide 1 Mg Tablet) 1 mg PO DAILY [facility]; Protocol Last Admin: 04/08/22 08:09 Dose: 1 mg Documented By: SOM Carvedilol (Carvedilol 25 Mg Tablet) 25 mg PO BID [facility]; Protocol Last Admin: 04/08/22 08:09 Dose: 25 mg Documented By: SOM Dextrose (Dextrose 50 % 25 Gm/50 Ml Syringe) 25 gm IVPUSH Q15M PRN; Protocol PRN Reason: per Hypoglycemia Standing Ord. Last Admin: 04/02/22 13:53 Dose: 25 gm Documented By: GLENYS Dextrose (Dextrose 50 % 25 Gm/50 Ml Syringe) 25 gm IVPUSH Q15M PRN PRN Reason: per Hypoglycemia Standing Ord. Docusate Sodium (Docusate Sodium 100 Mg Capsule) 100 mg PO DAILY PRN PRN Reason: Constipation Last Admin: 04/08/22 06:45 Dose: 100 mg Documented By: CY Epoetin Jostin 2,000 unit/ (Epoetin Jostin 3,000 unit) 5,000 unit IVPUSH DIALYSIS X2 MOWEFR [facility] Last Admin: 04/06/22 20:50 Dose: Not Given Documented By: CY Non-Admin Reason: already scanned and given with previous order Ergocalciferol (Ergocalciferol (Vitamin D2) 1,250 Mcg Capsule) 1,250 mcg PO FR@1000 [facility] Last Admin: 04/06/22 11:18 Dose: Not Given Documented By: KENNETH Non-Admin Reason: Pt at dialysis Fenofibrate (Fenofibrate 160 Mg Tablet) 160 mg PO DAILY [facility] Last Admin: 04/08/22 08:09 Dose: 160 mg Documented By: SOM Ferrous Sulfate (Ferrous Sulfate 324 Mg Tablet.Dr) 324 mg PO TID [facility] Last Admin: 04/08/22 08:09 Dose: 324 mg Documented By: SOM Glucose (Glucose Gel 15 Gm Gel..Gram.) 15 gm PO Q15M PRN; Protocol PRN Reason: per Hypoglycemia Standing Ord. Heparin Sodium (Porcine) (Heparin Sodium,Porcine 5,000 Unit/Ml Vial) 5,000 unit SUBCUT Q12H [facility] Last Admin: 04/07/22 23:04 Dose: 5,000 unit Documented By: CY Ceftriaxone Sodium 1 gm/ (Sodium Chloride) 50 mls @ 100 mls/hr IV Q24H [facility] Last Infusion: 04/08/22 00:01 Dose: 0 mls/hr Documented By: CY Metronidazole (Flagyl) 500 mg in 100 mls @ 100 mls/hr IV Q8H [facility] Last Infusion: 04/08/22 06:15 Dose: 0 mls/hr Documented By: CY Insulin Glargine (Insulin Glargine,Hum.Rec.Anlog 100 Unit/Ml 10 Ml Vial) 8 unit SUBCUT BEDTIME [facility] Last Admin: 04/01/22 21:14 Dose: 8 unit Documented By: SHERITA Insulin Human Lispro (Insulin Lispro 100 Unit/Ml 3 Ml Vial) 0 unit SUBCUT QIDACHS [facility]; Protocol Last Admin: 04/08/22 07:48 Dose: Not Given Documented By: SOM Non-Admin Reason: No Insulin Coverage Losartan Potassium (Losartan Potassium 50 Mg Tablet) 100 mg PO DAILY [facility]; Protocol Last Admin: 04/08/22 08:09 Dose: 100 mg Documented By: SOM Multivitamins/Vitamin C (Multivitamin Tablet) 1 tab PO DAILY [facility] Last Admin: 04/08/22 08:09 Dose: 1 tab Documented By: SOM Ondansetron HCl (Ondansetron Hcl 4 Mg/2 Ml Vial) 4 mg IVPUSH Q8H PRN PRN Reason: Nausea and Vomiting Sevelamer Carbonate (Sevelamer Carbonate Tablet 800 Mg Tablet) 1,600 mg PO TIDWM [facility] Last Admin: 04/08/22 08:09 Dose: 1,600 mg Documented By: SOM Sodium Chloride (0.9 % Sodium Chloride Flush 3 Ml Syringe) 3 ml IVFLUSH QSHIFT [facility] Last Admin: 04/08/22 08:10 Dose: 3 ml Documented By: SOM Ursodiol (Ursodiol 300 Mg Capsule) 300 mg PO BID [facility] Last Admin: 04/08/22 08:10 Dose: 300 mg Documented By: SOM Labs 04/07/22 05:53 04/05/22 05:58 Labs: Laboratory Results - last 24 hr 04/07/22 04/07/22 04/07/22 11:30 16:36 20:33 POC Glucose 184 H 194 H 159 H 04/08/22 07:23 POC Glucose 103 Assessment and Plan (1) Cholecystitis with cholelithiasis: Status: Acute (2) Dehiscence of operative wound: Status: Acute (3) ESRD (end stage renal disease) on dialysis: Status: Acute Plan 76yo M with ESRD on HD, DM2, recent R BKA presenting with acute abdominal pain and found to have acute cholecystitis; wound dehiscence right stump 1.Acute cholecystitis with cholelithiasis -POD 5 s/p IR cholecystostomy.?... Continues to drain -Continue ceftriaxone and flagyl (9) -repeat CT abdomen fails to demonstrate an abscess; gall bag flat around tube. 2.Wound dehiscence lateral BKA postop wound -right lower extremity BKA debridement for nonhealing stump on04/09/22 -NPO after midnight 3.ESRD on HD MWF -? continue sevelamer, renal diet -HD to be changed to Saturday by Renal to accommodate OR schedule on Saturday -follow renals/divalents 4.Anemia(ESRD) -Procrit as per Renal 5.HTN -acceptable control on current therapies -adjust as indicated 6.DM2 -acceptable control off therapies -continue correctional scale Heparin Full Code In my clinical judgment, the patient requires continued inpatient hospitalization for the following reasons: IV antibiotics and management of cholecystostomy tube and need for debridement of right BKA stump on Saturday Time Spent With Patient Time: Total time managing care of this patient today ____ minutes. Quality Stroke Does the patient have a stroke diagnosis?: No VTE Prior VTE?: No VTE Risk Level:: Medical - moderate - high VTE Device Contraindication: Treatment Not Indicated VTE Drug Contraindication: N/A - Med Ordered
[2022-04-08 11:23] LABS: Glucose, Whole Blood 126 mg/dL (60-115)
[2022-04-08] MEDS: Heparin Sodium,Porcine 5,000 UNIT/ML VIAL 5000 UNIT SUBCUT ×2 (11:44→21:50)
[2022-04-08] MEDS: Acetaminophen 325 MG TABLET 650 MG PO (14:54)
[2022-04-08 16:00] VITALS: BP 130/58; PULSE 67; RESP 16; TEMP 36; O2SAT 99
[2022-04-08 16:52] LABS: Glucose, Whole Blood 174 mg/dL (60-115)
[2022-04-08] MEDS: Insulin Lispro 100 UNIT/ML 3 ML VIAL SUBCUT ×2 (17:04→20:13)
[2022-04-08] MEDS: oxyCODONE HCl Immed Release 5 MG TABLET PO (17:04)
[2022-04-08 19:46] VITALS: BP 153/64; PULSE 66; RESP 18; TEMP 36.1; O2SAT 93
[2022-04-08 20:02] LABS: Glucose, Whole Blood 178 mg/dL (60-115)
[2022-04-08] MEDS: amLODIPine Besylate 5 MG TABLET PO (20:13)
[2022-04-08] MEDS: Atorvastatin Calcium 40 MG TABLET PO (20:13)
[2022-04-08] MEDS: cefTRIAXone sodium 1 GM in 0.9 % Sodium Chloride 50 ML IV (21:50)
[2022-04-09] VITALS (10 sets, daily range): BP systolic 117–148; BP diastolic 29–58; PULSE 53–62; RESP 16–20; TEMP 36.1–36.6; O2SAT 93–100; BMI 23.3
[2022-04-09] MEDS: Docusate Sodium 100 MG CAPSULE PO (03:22)
[2022-04-09] MEDS: Acetaminophen 325 MG TABLET 650 MG PO ×3 (03:22→17:09)
[2022-04-09] MEDS: metroNIDAZOLE/NS 500 MG/100 ML PIGGYBACK 100 MG IV ×3 (05:25→20:07)
[2022-04-09 06:49] LABS: Glucose, Whole Blood 114 mg/dL (60-115)
--- NOTE | 2022-04-09 07:27 | HO.ANESPROP2 ---
HPI - Anesthesia Eval Consult details Narrative: 76 yo male patient for debridement of Right BKA stump PMFSH Active Problems Active Problems: All Active Problems (Updated 04/06/22 @ 10:56 by August Swan MD) Below-knee amputation of right lower extremity with complication (Acute) Cholecystitis with cholelithiasis (Acute) Splenic infarct (Acute) Renal infarct (Acute) ESRD (end stage renal disease) on dialysis (Acute). Last dialysis 04/06/21 Dehiscence of operative wound (Acute) Decubitus ulcer (Acute) S/P bilateral BKA (below knee amputation) (Acute) Infected blister of great toe of left foot (Acute) Left shoulder pain (Acute) Osteoarthritis of left shoulder (Acute) Wet gangrene (Acute) Gangrene of right foot (Acute) ESRD (end stage renal disease) (Acute) Anemia (Acute) Pressure sore of lower back (Acute) Splenic infarct (Acute) ESRD (end stage renal disease) (Acute) Anemia (Acute) Diabetes (Acute) Hypertension (Acute) End-stage renal disease on hemodialysis (Acute) PAD (peripheral artery disease) (Acute) Diabetes mellitus, with long-term current use of insulin (Acute) Anemia in chronic kidney disease (Acute) Mixed hyperlipidemia (Acute) Diarrhea (Acute) Microalbuminuria (Acute) Past Medical History Medical History Anemia in chronic kidney disease Below-knee amputation of left lower extremity CVA (cerebral vascular accident) Diabetes Diabetes mellitus, with long-term current use of insulin Diarrhea End stage renal disease End-stage renal disease on hemodialysis Fever of unknown origin High cholesterol History of leg amputation Hypertension Microalbuminuria Mixed hyperlipidemia PAD (peripheral artery disease) Preoperative cardiovascular examination Family History Family History Father Myocardial infarction Mother No problems noted. Family history of problems with anesthesia: No Surgical History Surgical History History of eye surgery History of laminectomy History of surgery History of surgery on arm S/P CABG x 4 S/P unilateral BKA (below knee amputation) History of Problems with Anesthesia: No Social History Social History Household Members: Children Housing: Apartment Do you presently have visiting nurse or other home services: Yes (nursing aid) Alcohol intake: unknown Patient Tobacco Use Status: Never used Tobacco e-Cigarette/Vaping Use: Never Used Second Hand Smoke Exposure: No Advance Directives Date on File: 06/15/21 service: No Current occupational status: retired and disabled Cognitive needs: Yes Hearing needs: No Vision needs: No Meds Allergies Allergy/AdvReac Type Severity Reaction Status Date / Time lisinopril Allergy Intermediate hyperkalemi Verified 03/22/22 15:35 a hydralazine Allergy Unknown Verified 04/05/22 09:32 hydrochlorothiazide Allergy Unknown Verified 04/05/22 09:32 canagliflozin [Invokana] AdvReac Mild back pain Verified 03/22/22 15:35 lidocaine [From LIDOPRIL] AdvReac Mild Cough Verified 04/05/22 09:32 prilocaine [From LIDOPRIL] AdvReac Mild Cough Verified 04/05/22 09:32 Active Medications: Current Medications Acetaminophen (Acetaminophen 325 Mg Tablet) 650 mg PO Q6H PRN PRN Reason: Pain, Mild (Pain Scale 1-3) Last Admin: 04/09/22 03:22 Dose: 650 mg Amlodipine Besylate (Amlodipine Besylate 5 Mg Tablet) 5 mg PO BEDTIME [facility]; Protocol Last Admin: 04/08/22 20:13 Dose: 5 mg Aspirin (Aspirin Enteric Coated 81 Mg Tablet.Dr) 81 mg PO DAILY [facility] Last Admin: 04/08/22 08:09 Dose: 81 mg Atorvastatin Calcium (Atorvastatin Calcium 40 Mg Tablet) 40 mg PO BEDTIME [facility] Last Admin: 04/08/22 20:13 Dose: 40 mg Bumetanide (Bumetanide 1 Mg Tablet) 1 mg PO DAILY [facility]; Protocol Last Admin: 04/08/22 08:09 Dose: 1 mg Carvedilol (Carvedilol 25 Mg Tablet) 25 mg PO BID [facility]; Protocol Last Admin: 04/08/22 20:13 Dose: 25 mg Dextrose (Dextrose 50 % 25 Gm/50 Ml Syringe) 25 gm IVPUSH Q15M PRN; Protocol PRN Reason: per Hypoglycemia Standing Ord. Last Admin: 04/02/22 13:53 Dose: 25 gm Dextrose (Dextrose 50 % 25 Gm/50 Ml Syringe) 25 gm IVPUSH Q15M PRN PRN Reason: per Hypoglycemia Standing Ord. Docusate Sodium (Docusate Sodium 100 Mg Capsule) 100 mg PO DAILY PRN PRN Reason: Constipation Last Admin: 04/09/22 03:22 Dose: 100 mg Epoetin Jostin 2,000 unit/ (Epoetin Jostin 3,000 unit) 5,000 unit IVPUSH DIALYSIS X2 MOWEFR [facility] Last Admin: 04/06/22 20:50 Dose: Not Given Ergocalciferol (Ergocalciferol (Vitamin D2) 1,250 Mcg Capsule) 1,250 mcg PO FR@1000 [facility] Last Admin: 04/06/22 11:18 Dose: Not Given Fenofibrate (Fenofibrate 160 Mg Tablet) 160 mg PO DAILY [facility] Last Admin: 04/08/22 08:09 Dose: 160 mg Ferrous Sulfate (Ferrous Sulfate 324 Mg Tablet.Dr) 324 mg PO TID [facility] Last Admin: 04/08/22 20:13 Dose: 324 mg Glucose (Glucose Gel 15 Gm Gel..Gram.) 15 gm PO Q15M PRN; Protocol PRN Reason: per Hypoglycemia Standing Ord. Heparin Sodium (Porcine) (Heparin Sodium,Porcine 5,000 Unit/Ml Vial) 5,000 unit SUBCUT Q12H [facility] Last Admin: 04/08/22 21:50 Dose: 5,000 unit Ceftriaxone Sodium 1 gm/ (Sodium Chloride) 50 mls @ 100 mls/hr IV Q24H [facility] Last Infusion: 04/08/22 22:22 Dose: Infused Metronidazole (Flagyl) 500 mg in 100 mls @ 100 mls/hr IV Q8H [facility] Last Infusion: 04/09/22 06:28 Dose: Infused Insulin Glargine (Insulin Glargine,Hum.Rec.Anlog 100 Unit/Ml 10 Ml Vial) 8 unit SUBCUT BEDTIME [facility] Last Admin: 04/01/22 21:14 Dose: 8 unit Insulin Human Lispro (Insulin Lispro 100 Unit/Ml 3 Ml Vial) 0 unit SUBCUT QIDACHS [facility]; Protocol Last Admin: 04/09/22 07:19 Dose: Not Given Losartan Potassium (Losartan Potassium 50 Mg Tablet) 100 mg PO DAILY [facility]; Protocol Last Admin: 04/08/22 08:09 Dose: 100 mg Multivitamins/Vitamin C (Multivitamin Tablet) 1 tab PO DAILY [facility] Last Admin: 04/08/22 08:09 Dose: 1 tab Ondansetron HCl (Ondansetron Hcl 4 Mg/2 Ml Vial) 4 mg IVPUSH Q8H PRN PRN Reason: Nausea and Vomiting Sevelamer Carbonate (Sevelamer Carbonate Tablet 800 Mg Tablet) 1,600 mg PO TIDWM [facility] Last Admin: 04/08/22 17:04 Dose: 1,600 mg Sodium Chloride (0.9 % Sodium Chloride Flush 3 Ml Syringe) 3 ml IVFLUSH QSHIFT [facility] Last Admin: 04/09/22 07:19 Dose: Not Given Ursodiol (Ursodiol 300 Mg Capsule) 300 mg PO BID [facility] Last Admin: 04/08/22 20:13 Dose: 300 mg Home Medications Medication Instructions Recorded Confirmed Last Taken Type sevelamer carbonate 800 mg tablet 1,600 mg PO TIDWM 01/22/20 03/30/22 03/30/22 History amlodipine 5 mg tablet 5 mg PO BEDTIME 06/01/21 03/30/22 03/30/22 History aspirin 81 mg tablet,delayed 1 tab PO DAILY 06/01/21 03/30/22 03/30/22 History release carvedilol 25 mg tablet 1 tab PO BID 06/01/21 03/30/22 03/30/22 History ursodiol 300 mg capsule 1 cap PO BID 06/01/21 03/30/22 03/30/22 History losartan 100 mg tablet 100 mg PO DAILY 01/23/22 03/30/22 03/30/22 History ergocalciferol (vitamin D2) 1,250 1,250 mcg PO FR@1000 03/30/22 03/30/22 Unknown History mcg (50,000 unit) capsule (Vitamin D2) tramadol 50 mg tablet 50 mg PO DAILY PRN Pain 03/30/22 03/30/22 Unknown History vitamin B complex and vitamin C 1 cap PO DAILY 03/30/22 03/30/22 03/30/22 History no.20-folic acid 1 mg capsule (Virt-Caps) Exam Exam Date and Time: April 09, [id number] Height,Weight and Vital Signs: Height 5 ft 5 in Weight 63.503 kg Last Vital Signs Temp 97.0 F 04/09/22 06:34 Pulse 59 04/09/22 06:34 Resp 18 04/09/22 06:34 BP 148/41 H 04/09/22 06:34 Pulse Ox 97 04/09/22 06:34 O2 Del Method 04/09/22 06:34 Pertinent Lab Results Pertinent Lab Results: Laboratory Tests 03/30/22 03/30/22 03/30/22 16:43 17:29 18:38 WBC 11.4 H RBC 2.77 L Hgb 8.7 L Hct 26.9 L MCV 97.1 MCH 31.4 MCHC 32.3 RDW 16.9 H Plt Count 296 MPV 11.2 Immature Gran % (Auto) 1.1 H Neut % (Auto) 88.3 H Lymph % (Auto) 4.9 L [place] % (Auto) 3.3 Eos % (Auto) 2.0 Baso % (Auto) 0.4 Lymph # (Auto) 0.6 L [place] # (Auto) 0.4 Eos # (Auto) 0.2 Baso # (Auto) 0.0 Abs Immat Gran (auto) 0.12 H Absolute Neuts (auto) 10.1 H Absolute Nucleated RBC 0.000 Nucleated RBC % (auto) 0.0 PT INR APTT Sodium 136 Potassium 3.7 Chloride 98 Carbon Dioxide 27 Anion Gap 15 BUN 20 H Creatinine 1.88 H Estim Creat Clear Calc 29.5 Estimated GFR 35 POC Glucose Random Glucose 142 H Lactic Acid Calcium 8.4 Total Bilirubin 2.3 H Direct Bilirubin 1.7 H AST 198 H ALT 113 H Alkaline Phosphatase 285 H Troponin I High Sens C-Reactive Protein Total Protein 6.0 L Albumin 2.3 L Lipase 39 Influenza Type A (PCR) NEGATIVE Influenza Type B (PCR) NEGATIVE RSV RNA Qual (PCR) NEGATIVE SARS-CoV-2 RNA (RT-PCR) NEGATIVE 03/30/22 03/30/22 03/30/22 18:38 18:38 18:38 WBC RBC Hgb Hct MCV MCH MCHC RDW Plt Count MPV Immature Gran % (Auto) Neut % (Auto) Lymph % (Auto) [place] % (Auto) Eos % (Auto) Baso % (Auto) Lymph # (Auto) [place] # (Auto) Eos # (Auto) Baso # (Auto) Abs Immat Gran (auto) Absolute Neuts (auto) Absolute Nucleated RBC Nucleated RBC % (auto) PT 18.9 H INR 1.6 H APTT 32.3 Sodium Potassium Chloride Carbon Dioxide Anion Gap BUN Creatinine Estim Creat Clear Calc Estimated GFR POC Glucose Random Glucose Lactic Acid 0.8 Calcium Total Bilirubin Direct Bilirubin AST ALT Alkaline Phosphatase Troponin I High Sens 49.8 H C-Reactive Protein Total Protein Albumin Lipase Influenza Type A (PCR) Influenza Type B (PCR) RSV RNA Qual (PCR) SARS-CoV-2 RNA (RT-PCR) 03/31/22 03/31/22 03/31/22 06:48 06:48 06:48 WBC 10.1 RBC 2.53 L Hgb 8.1 L Hct 24.8 L MCV 98.0 MCH 32.0 MCHC 32.7 RDW 17.1 H Plt Count 266 MPV 11.5 Immature Gran % (Auto) 1.1 H Neut % (Auto) 84.6 H Lymph % (Auto) 6.5 L [place] % (Auto) 4.6 Eos % (Auto) 2.5 Baso % (Auto) 0.7 Lymph # (Auto) 0.7 L [place] # (Auto) 0.5 Eos # (Auto) 0.3 Baso # (Auto) 0.1 Abs Immat Gran (auto) 0.11 H Absolute Neuts (auto) 8.5 H Absolute Nucleated RBC 0.000 Nucleated RBC % (auto) 0.0 PT INR APTT Sodium 137 Potassium 4.1 Chloride 99 Carbon Dioxide 27 Anion Gap 15 BUN 28 H Creatinine 2.58 H Estim Creat Clear Calc 21.5 Estimated GFR 24 POC Glucose Random Glucose 120 H Lactic Acid Calcium 8.4 Total Bilirubin Direct Bilirubin AST ALT Alkaline Phosphatase Troponin I High Sens 65.4 H C-Reactive Protein 13.76 H Total Protein Albumin Lipase Influenza Type A (PCR) Influenza Type B (PCR) RSV RNA Qual (PCR) SARS-CoV-2 RNA (RT-PCR) 03/31/22 03/31/22 03/31/22 08:07 11:30 15:43 WBC RBC Hgb Hct MCV MCH MCHC RDW Plt Count MPV Immature Gran % (Auto) Neut % (Auto) Lymph % (Auto) [place] % (Auto) Eos % (Auto) Baso % (Auto) Lymph # (Auto) [place] # (Auto) Eos # (Auto) Baso # (Auto) Abs Immat Gran (auto) Absolute Neuts (auto) Absolute Nucleated RBC Nucleated RBC % (auto) PT INR APTT Sodium Potassium Chloride Carbon Dioxide Anion Gap BUN Creatinine Estim Creat Clear Calc Estimated GFR POC Glucose 111 174 H 73 Random Glucose Lactic Acid Calcium Total Bilirubin Direct Bilirubin AST ALT Alkaline Phosphatase Troponin I High Sens C-Reactive Protein Total Protein Albumin Lipase Influenza Type A (PCR) Influenza Type B (PCR) RSV RNA Qual (PCR) SARS-CoV-2 RNA (RT-PCR) 03/31/22 04/01/22 04/01/22 19:19 01:04 01:29 WBC RBC Hgb Hct MCV MCH MCHC RDW Plt Count MPV Immature Gran % (Auto) Neut % (Auto) Lymph % (Auto) [place] % (Auto) Eos % (Auto) Baso % (Auto) Lymph # (Auto) [place] # (Auto) Eos # (Auto) Baso # (Auto) Abs Immat Gran (auto) Absolute Neuts (auto) Absolute Nucleated RBC Nucleated RBC % (auto) PT INR APTT Sodium Potassium Chloride Carbon Dioxide Anion Gap BUN Creatinine Estim Creat Clear Calc Estimated GFR POC Glucose 140 H 41 L* 206 H Random Glucose Lactic Acid Calcium Total Bilirubin Direct Bilirubin AST ALT Alkaline Phosphatase Troponin I High Sens C-Reactive Protein Total Protein Albumin Lipase Influenza Type A (PCR) Influenza Type B (PCR) RSV RNA Qual (PCR) SARS-CoV-2 RNA (RT-PCR) 04/01/22 04/01/22 04/01/22 02:03 03:05 04:06 WBC RBC Hgb Hct MCV MCH MCHC RDW Plt Count MPV Immature Gran % (Auto) Neut % (Auto) Lymph % (Auto) [place] % (Auto) Eos % (Auto) Baso % (Auto) Lymph # (Auto) [place] # (Auto) Eos # (Auto) Baso # (Auto) Abs Immat Gran (auto) Absolute Neuts (auto) Absolute Nucleated RBC Nucleated RBC % (auto) PT INR APTT Sodium Potassium Chloride Carbon Dioxide Anion Gap BUN Creatinine Estim Creat Clear Calc Estimated GFR POC Glucose 164 H 144 H 142 H Random Glucose Lactic Acid Calcium Total Bilirubin Direct Bilirubin AST ALT Alkaline Phosphatase Troponin I High Sens C-Reactive Protein Total Protein Albumin Lipase Influenza Type A (PCR) Influenza Type B (PCR) RSV RNA Qual (PCR) SARS-CoV-2 RNA (RT-PCR) 04/01/22 04/01/22 04/01/22 04:59 05:06 05:06 WBC 10.7 RBC 2.35 L Hgb 7.6 L Hct 23.2 L MCV 98.7 H MCH 32.3 MCHC 32.8 RDW 17.0 H Plt Count 244 MPV 11.6 Immature Gran % (Auto) Neut % (Auto) Lymph % (Auto) [place] % (Auto) Eos % (Auto) Baso % (Auto) Lymph # (Auto) [place] # (Auto) Eos # (Auto) Baso # (Auto) Abs Immat Gran (auto) Absolute Neuts (auto) Absolute Nucleated RBC 0.000 Nucleated RBC % (auto) 0.0 PT INR APTT Sodium 134 L Potassium 4.0 Chloride 96 Carbon Dioxide 28 Anion Gap 14 BUN 41 H Creatinine 3.49 H Estim Creat Clear Calc 15.9 Estimated GFR 17 POC Glucose 140 H Random Glucose 134 H Lactic Acid Calcium 8.3 L Total Bilirubin 0.9 Direct Bilirubin AST 64 H ALT 65 H Alkaline Phosphatase 228 H Troponin I High Sens C-Reactive Protein Total Protein 5.4 L Albumin 2.1 L Lipase Influenza Type A (PCR) Influenza Type B (PCR) RSV RNA Qual (PCR) SARS-CoV-2 RNA (RT-PCR) 04/01/22 04/01/22 04/01/22 05:06 07:59 11:38 WBC RBC Hgb Hct MCV MCH MCHC RDW Plt Count MPV Immature Gran % (Auto) Neut % (Auto) Lymph % (Auto) [place] % (Auto) Eos % (Auto) Baso % (Auto) Lymph # (Auto) [place] # (Auto) Eos # (Auto) Baso # (Auto) Abs Immat Gran (auto) Absolute Neuts (auto) Absolute Nucleated RBC Nucleated RBC % (auto) PT 21.5 H INR 1.8 H APTT 35.3 Sodium Potassium Chloride Carbon Dioxide Anion Gap BUN Creatinine Estim Creat Clear Calc Estimated GFR POC Glucose 109 142 H Random Glucose Lactic Acid Calcium Total Bilirubin Direct Bilirubin AST ALT Alkaline Phosphatase Troponin I High Sens C-Reactive Protein Total Protein Albumin Lipase Influenza Type A (PCR) Influenza Type B (PCR) RSV RNA Qual (PCR) SARS-CoV-2 RNA (RT-PCR) 04/01/22 04/01/22 04/02/22 15:23 20:41 06:00 WBC 11.9 H RBC 2.52 L Hgb 8.1 L Hct 24.4 L MCV 96.8 MCH 32.1 MCHC 33.2 RDW 17.2 H Plt Count 282 MPV 12.2 Immature Gran % (Auto) Neut % (Auto) Lymph % (Auto) [place] % (Auto) Eos % (Auto) Baso % (Auto) Lymph # (Auto) [place] # (Auto) Eos # (Auto) Baso # (Auto) Abs Immat Gran (auto) Absolute Neuts (auto) Absolute Nucleated RBC 0.000 Nucleated RBC % (auto) 0.0 PT INR APTT Sodium Potassium Chloride Carbon Dioxide Anion Gap BUN Creatinine Estim Creat Clear Calc Estimated GFR POC Glucose 160 H 133 H Random Glucose Lactic Acid Calcium Total Bilirubin Direct Bilirubin AST ALT Alkaline Phosphatase Troponin I High Sens C-Reactive Protein Total Protein Albumin Lipase Influenza Type A (PCR) Influenza Type B (PCR) RSV RNA Qual (PCR) SARS-CoV-2 RNA (RT-PCR) 04/02/22 04/02/22 04/02/22 06:00 06:00 07:18 WBC RBC Hgb Hct MCV MCH MCHC RDW Plt Count MPV Immature Gran % (Auto) Neut % (Auto) Lymph % (Auto) [place] % (Auto) Eos % (Auto) Baso % (Auto) Lymph # (Auto) [place] # (Auto) Eos # (Auto) Baso # (Auto) Abs Immat Gran (auto) Absolute Neuts (auto) Absolute Nucleated RBC Nucleated RBC % (auto) PT 18.7 H INR 1.6 H APTT Sodium 135 Potassium 4.7 Chloride 97 Carbon Dioxide 24 Anion Gap 19 BUN 56 H Creatinine 4.37 H* Estim Creat Clear Calc 12.7 Estimated GFR 13 POC Glucose 46 L* Random Glucose 46 L* Lactic Acid Calcium 8.2 L Total Bilirubin Direct Bilirubin AST ALT Alkaline Phosphatase Troponin I High Sens C-Reactive Protein 12.41 H Total Protein Albumin Lipase Influenza Type A (PCR) Influenza Type B (PCR) RSV RNA Qual (PCR) SARS-CoV-2 RNA (RT-PCR) 04/02/22 04/02/22 04/02/22 07:51 08:29 11:16 WBC RBC Hgb Hct MCV MCH MCHC RDW Plt Count MPV Immature Gran % (Auto) Neut % (Auto) Lymph % (Auto) [place] % (Auto) Eos % (Auto) Baso % (Auto) Lymph # (Auto) [place] # (Auto) Eos # (Auto) Baso # (Auto) Abs Immat Gran (auto) Absolute Neuts (auto) Absolute Nucleated RBC Nucleated RBC % (auto) PT INR APTT Sodium Potassium Chloride Carbon Dioxide Anion Gap BUN Creatinine Estim Creat Clear Calc Estimated GFR POC Glucose 142 H 78 Random Glucose 113 Lactic Acid Calcium Total Bilirubin Direct Bilirubin AST ALT Alkaline Phosphatase Troponin I High Sens C-Reactive Protein Total Protein Albumin Lipase Influenza Type A (PCR) Influenza Type B (PCR) RSV RNA Qual (PCR) SARS-CoV-2 RNA (RT-PCR) 04/02/22 04/02/22 04/02/22 13:36 14:12 17:52 WBC RBC Hgb Hct MCV MCH MCHC RDW Plt Count MPV Immature Gran % (Auto) Neut % (Auto) Lymph % (Auto) [place] % (Auto) Eos % (Auto) Baso % (Auto) Lymph # (Auto) [place] # (Auto) Eos # (Auto) Baso # (Auto) Abs Immat Gran (auto) Absolute Neuts (auto) Absolute Nucleated RBC Nucleated RBC % (auto) PT INR APTT Sodium Potassium Chloride Carbon Dioxide Anion Gap BUN Creatinine Estim Creat Clear Calc Estimated GFR POC Glucose 64 157 H 92 Random Glucose Lactic Acid Calcium Total Bilirubin Direct Bilirubin AST ALT Alkaline Phosphatase Troponin I High Sens C-Reactive Protein Total Protein Albumin Lipase Influenza Type A (PCR) Influenza Type B (PCR) RSV RNA Qual (PCR) SARS-CoV-2 RNA (RT-PCR) 04/02/22 04/03/22 04/03/22 20:17 06:02 06:02 WBC 13.7 H RBC 2.58 L Hgb 8.1 L Hct 24.7 L MCV 95.7 MCH 31.4 MCHC 32.8 RDW 17.3 H Plt Count 312 MPV 12.3 Immature Gran % (Auto) Neut % (Auto) Lymph % (Auto) [place] % (Auto) Eos % (Auto) Baso % (Auto) Lymph # (Auto) [place] # (Auto) Eos # (Auto) Baso # (Auto) Abs Immat Gran (auto) Absolute Neuts (auto) Absolute Nucleated RBC 0.000 Nucleated RBC % (auto) 0.0 PT INR APTT Sodium 135 Potassium 5.5 H Chloride 95 L Carbon Dioxide 26 Anion Gap 20 BUN 66 H Creatinine 5.51 H* Estim Creat Clear Calc 10.0 Estimated GFR 10 POC Glucose 109 Random Glucose 126 H Lactic Acid Calcium 8.4 Total Bilirubin 1.3 H Direct Bilirubin AST 40 H ALT 41 H Alkaline Phosphatase 179 H Troponin I High Sens C-Reactive Protein Total Protein 5.6 L Albumin 2.2 L Lipase Influenza Type A (PCR) Influenza Type B (PCR) RSV RNA Qual (PCR) SARS-CoV-2 RNA (RT-PCR) 04/03/22 04/03/22 04/03/22 07:27 15:34 19:41 WBC RBC Hgb Hct MCV MCH MCHC RDW Plt Count MPV Immature Gran % (Auto) Neut % (Auto) Lymph % (Auto) [place] % (Auto) Eos % (Auto) Baso % (Auto) Lymph # (Auto) [place] # (Auto) Eos # (Auto) Baso # (Auto) Abs Immat Gran (auto) Absolute Neuts (auto) Absolute Nucleated RBC Nucleated RBC % (auto) PT INR APTT Sodium Potassium Chloride Carbon Dioxide Anion Gap BUN Creatinine Estim Creat Clear Calc Estimated GFR POC Glucose 125 H 137 H 238 H Random Glucose Lactic Acid Calcium Total Bilirubin Direct Bilirubin AST ALT Alkaline Phosphatase Troponin I High Sens C-Reactive Protein Total Protein Albumin Lipase Influenza Type A (PCR) Influenza Type B (PCR) RSV RNA Qual (PCR) SARS-CoV-2 RNA (RT-PCR) 04/04/22 04/04/22 04/04/22 05:46 05:46 05:46 WBC 13.5 H RBC 2.45 L Hgb 7.8 L Hct 24.2 L MCV 98.8 H MCH 31.8 MCHC 32.2 RDW 17.8 H Plt Count 270 MPV 12.1 Immature Gran % (Auto) 0.7 H Neut % (Auto) 87.8 H Lymph % (Auto) 5.0 L [place] % (Auto) 4.5 Eos % (Auto) 1.6 Baso % (Auto) 0.4 Lymph # (Auto) 0.7 L [place] # (Auto) 0.6 Eos # (Auto) 0.2 Baso # (Auto) 0.1 Abs Immat Gran (auto) 0.10 H Absolute Neuts (auto) 11.8 H Absolute Nucleated RBC 0.020 H Nucleated RBC % (auto) 0.1 PT INR APTT Sodium 136 Potassium 4.2 D Chloride 100 Carbon Dioxide 25 Anion Gap 15 BUN 27 H Creatinine 3.19 H Estim Creat Clear Calc 17.4 Estimated GFR 19 POC Glucose Random Glucose 68 Lactic Acid Calcium 8.2 L Total Bilirubin 0.8 Direct Bilirubin 0.5 AST 29 ALT 31 Alkaline Phosphatase 147 H Troponin I High Sens C-Reactive Protein Total Protein 5.3 L Albumin 2.1 L Lipase Influenza Type A (PCR) Influenza Type B (PCR) RSV RNA Qual (PCR) SARS-CoV-2 RNA (RT-PCR) 04/04/22 04/04/22 04/04/22 10:50 16:18 20:13 WBC RBC Hgb Hct MCV MCH MCHC RDW Plt Count MPV Immature Gran % (Auto) Neut % (Auto) Lymph % (Auto) [place] % (Auto) Eos % (Auto) Baso % (Auto) Lymph # (Auto) [place] # (Auto) Eos # (Auto) Baso # (Auto) Abs Immat Gran (auto) Absolute Neuts (auto) Absolute Nucleated RBC Nucleated RBC % (auto) PT INR APTT Sodium Potassium Chloride Carbon Dioxide Anion Gap BUN Creatinine Estim Creat Clear Calc Estimated GFR POC Glucose 78 198 H 223 H Random Glucose Lactic Acid Calcium Total Bilirubin Direct Bilirubin AST ALT Alkaline Phosphatase Troponin I High Sens C-Reactive Protein Total Protein Albumin Lipase Influenza Type A (PCR) Influenza Type B (PCR) RSV RNA Qual (PCR) SARS-CoV-2 RNA (RT-PCR) 04/05/22 04/05/22 04/05/22 05:58 05:58 07:29 WBC 13.1 H RBC 2.47 L Hgb 7.8 L Hct 24.8 L MCV 100.4 H MCH 31.6 MCHC 31.5 RDW 17.9 H Plt Count 299 MPV 11.7 Immature Gran % (Auto) 0.6 H Neut % (Auto) 85.8 H Lymph % (Auto) 5.7 L [place] % (Auto) 5.3 Eos % (Auto) 2.1 Baso % (Auto) 0.5 Lymph # (Auto) 0.7 L [place] # (Auto) 0.7 Eos # (Auto) 0.3 Baso # (Auto) 0.1 Abs Immat Gran (auto) 0.08 H Absolute Neuts (auto) 11.2 H Absolute Nucleated RBC 0.000 Nucleated RBC % (auto) 0.0 PT INR APTT Sodium 133 L Potassium 4.0 Chloride 100 Carbon Dioxide 22 Anion Gap 15 BUN 22 H Creatinine 2.64 H Estim Creat Clear Calc 21.0 Estimated GFR 24 POC Glucose 179 H Random Glucose 119 H Lactic Acid Calcium 8.4 Total Bilirubin Direct Bilirubin AST ALT Alkaline Phosphatase Troponin I High Sens C-Reactive Protein Total Protein Albumin Lipase Influenza Type A (PCR) Influenza Type B (PCR) RSV RNA Qual (PCR) SARS-CoV-2 RNA (RT-PCR) 04/05/22 04/05/22 04/05/22 11:12 16:20 19:37 WBC RBC Hgb Hct MCV MCH MCHC RDW Plt Count MPV Immature Gran % (Auto) Neut % (Auto) Lymph % (Auto) [place] % (Auto) Eos % (Auto) Baso % (Auto) Lymph # (Auto) [place] # (Auto) Eos # (Auto) Baso # (Auto) Abs Immat Gran (auto) Absolute Neuts (auto) Absolute Nucleated RBC Nucleated RBC % (auto) PT INR APTT Sodium Potassium Chloride Carbon Dioxide Anion Gap BUN Creatinine Estim Creat Clear Calc Estimated GFR POC Glucose 173 H 105 197 H Random Glucose Lactic Acid Calcium Total Bilirubin Direct Bilirubin AST ALT Alkaline Phosphatase Troponin I High Sens C-Reactive Protein Total Protein Albumin Lipase Influenza Type A (PCR) Influenza Type B (PCR) RSV RNA Qual (PCR) SARS-CoV-2 RNA (RT-PCR) 04/06/22 04/06/22 04/06/22 07:16 13:19 16:13 WBC RBC Hgb Hct MCV MCH MCHC RDW Plt Count MPV Immature Gran % (Auto) Neut % (Auto) Lymph % (Auto) [place] % (Auto) Eos % (Auto) Baso % (Auto) Lymph # (Auto) [place] # (Auto) Eos # (Auto) Baso # (Auto) Abs Immat Gran (auto) Absolute Neuts (auto) Absolute Nucleated RBC Nucleated RBC % (auto) PT INR APTT Sodium Potassium Chloride Carbon Dioxide Anion Gap BUN Creatinine Estim Creat Clear Calc Estimated GFR POC Glucose 145 H 134 H 252 H Random Glucose Lactic Acid Calcium Total Bilirubin Direct Bilirubin AST ALT Alkaline Phosphatase Troponin I High Sens C-Reactive Protein Total Protein Albumin Lipase Influenza Type A (PCR) Influenza Type B (PCR) RSV RNA Qual (PCR) SARS-CoV-2 RNA (RT-PCR) 04/06/22 04/07/22 04/07/22 20:21 05:53 07:41 WBC 10.0 RBC 2.51 L Hgb 8.0 L Hct 24.7 L MCV 98.4 H MCH 31.9 MCHC 32.4 RDW 18.6 H Plt Count 295 MPV 11.2 Immature Gran % (Auto) Neut % (Auto) Lymph % (Auto) [place] % (Auto) Eos % (Auto) Baso % (Auto) Lymph # (Auto) [place] # (Auto) Eos # (Auto) Baso # (Auto) Abs Immat Gran (auto) Absolute Neuts (auto) Absolute Nucleated RBC 0.000 Nucleated RBC % (auto) 0.0 PT INR APTT Sodium Potassium Chloride Carbon Dioxide Anion Gap BUN Creatinine Estim Creat Clear Calc Estimated GFR POC Glucose 156 H 121 H Random Glucose Lactic Acid Calcium Total Bilirubin Direct Bilirubin AST ALT Alkaline Phosphatase Troponin I High Sens C-Reactive Protein Total Protein Albumin Lipase Influenza Type A (PCR) Influenza Type B (PCR) RSV RNA Qual (PCR) SARS-CoV-2 RNA (RT-PCR) 04/07/22 04/07/22 04/07/22 11:30 16:36 20:33 WBC RBC Hgb Hct MCV MCH MCHC RDW Plt Count MPV Immature Gran % (Auto) Neut % (Auto) Lymph % (Auto) [place] % (Auto) Eos % (Auto) Baso % (Auto) Lymph # (Auto) [place] # (Auto) Eos # (Auto) Baso # (Auto) Abs Immat Gran (auto) Absolute Neuts (auto) Absolute Nucleated RBC Nucleated RBC % (auto) PT INR APTT Sodium Potassium Chloride Carbon Dioxide Anion Gap BUN Creatinine Estim Creat Clear Calc Estimated GFR POC Glucose 184 H 194 H 159 H Random Glucose Lactic Acid Calcium Total Bilirubin Direct Bilirubin AST ALT Alkaline Phosphatase Troponin I High Sens C-Reactive Protein Total Protein Albumin Lipase Influenza Type A (PCR) Influenza Type B (PCR) RSV RNA Qual (PCR) SARS-CoV-2 RNA (RT-PCR) 04/08/22 04/08/22 04/08/22 07:23 11:16 16:47 WBC RBC Hgb Hct MCV MCH MCHC RDW Plt Count MPV Immature Gran % (Auto) Neut % (Auto) Lymph % (Auto) [place] % (Auto) Eos % (Auto) Baso % (Auto) Lymph # (Auto) [place] # (Auto) Eos # (Auto) Baso # (Auto) Abs Immat Gran (auto) Absolute Neuts (auto) Absolute Nucleated RBC Nucleated RBC % (auto) PT INR APTT Sodium Potassium Chloride Carbon Dioxide Anion Gap BUN Creatinine Estim Creat Clear Calc Estimated GFR POC Glucose 103 126 H 174 H Random Glucose Lactic Acid Calcium Total Bilirubin Direct Bilirubin AST ALT Alkaline Phosphatase Troponin I High Sens C-Reactive Protein Total Protein Albumin Lipase Influenza Type A (PCR) Influenza Type B (PCR) RSV RNA Qual (PCR) SARS-CoV-2 RNA (RT-PCR) 04/08/22 04/09/22 19:49 06:38 WBC RBC Hgb Hct MCV MCH MCHC RDW Plt Count MPV Immature Gran % (Auto) Neut % (Auto) Lymph % (Auto) [place] % (Auto) Eos % (Auto) Baso % (Auto) Lymph # (Auto) [place] # (Auto) Eos # (Auto) Baso # (Auto) Abs Immat Gran (auto) Absolute Neuts (auto) Absolute Nucleated RBC Nucleated RBC % (auto) PT INR APTT Sodium Potassium Chloride Carbon Dioxide Anion Gap BUN Creatinine Estim Creat Clear Calc Estimated GFR POC Glucose 178 H 114 Random Glucose Lactic Acid Calcium Total Bilirubin Direct Bilirubin AST ALT Alkaline Phosphatase Troponin I High Sens C-Reactive Protein Total Protein Albumin Lipase Influenza Type A (PCR) Influenza Type B (PCR) RSV RNA Qual (PCR) SARS-CoV-2 RNA (RT-PCR) Airway Mallampati Class: III TM Dist: >3cm Neck ROM: Full Loose/Missing/Broken Teeth: Yes (Edentulous) Heart: RRR Lungs: CTAB Assessment and Plan Assessment Anesthesia Assessment: Anesthesia Plan Discussed and Chart Reviewed Final Anesthetic Review Family History of Problems with Anesthesia: No History of Problems with Anesthesia: No NPO: Yes ASA Class: III Final Preanesthetic Review: No Changes in Pt Med Stat, Meds/Allgs Chart Reviewed, Consent Obtained/Reviewed and Anes Risks/Benef Reviewed Patient Risk: Intermediate Procedure Risk: Low Assessment/Block/Sedation in SS: Assess/Block/Sedation-SS Anesthetic Plan Anesthetic Plan: GA Disposition: Standard PACU and Inp. Admit - Standard Bed
--- NOTE | 2022-04-09 08:53 | P.OP_ITS ---
Operative Note Operative Note Date of Service: 04/09/22 Narrative: Operative note by [facility] Preoperative diagnosis: Nonhealing right BKA stump Postoperative diagnosis: Same Procedure:1. Debridement of right BKA stump into muscle 2. Complex flap closure Surgeon:August Swan M.D. Manufacturing Engineering Technologist: Wilma Anesthesia: General Specimens: 1 Drains: None Estimated blood loss: Minimal Indications: Complex 76-year-old gentleman presents for debridement of right st ump. He had right BKA in March and it has been nonhealing. He presented to the hospital for acute cholecystitis and was discovered to be nonhealing stump. He now presents for operative debridement. The patient has signed the informed consent after reviewing risks, complications, benefits, and alternatives previously discussed with the patient. The patient was given the opportunity to ask any additional questions or voice any concerns. All questions were answered to the patient's satisfaction. Procedure in detail: Patient was brought to the operating room prior to which a time-out was called for patient identification site verification. Right stump was prepped and draped in standard surgical fashion. Using pickups and Metzenbaum scissors we debrided the dry fibrinous necrotic material all the way across the stump. Using pickups we then used removed all this for venous necrotic material. The original wound size was 15 x 3 x 0.2 cm. We removed all this necrotic tissue with 15 blade and pickups. We debrided into bone. Bleeding was encountered and this was controlled with electrocautery. The entire area was thoroughly irrigated out. We then had to create superior and the stump flap had to be raised. These flaps brought forward and we he then used a 3-0 nylon suture to bring the flaps forward and bring the incision pipeline operator together. This was done in a mattress fashion. Once completed the incision line was unable to be completely closed due to the tension. There was an opening approximately 15 cm x 1 cm x 0.3 cm. Xeroform and a sterile dressing were applied. At the end the case sponge instrument counts were correct. Patient tolerated the procedure well. Returned to recovery with stable vitals. This note is constructed using voice recognition software. While every effort has been made to ensure accuracy, home health caregiver errors may have been included. Thank you for allowing me to participate in the care of your patient. Yours sincerely, August Swan MD, FACS, R.P.V.I.
--- NOTE | 2022-04-09 08:53 | MHC.SHP ---
Pre-Procedural Eval Section A Date of Service: 04/09/22 The patient is an INPATIENT: Yes Changes since office visit: Yes Patient answered all questions The History & Physical has been completed within 30 days and I have reviewed it.: Yes Section B Chief Complaint: Cholecystitis,splenic infarct Allergies: Allergies Allergy/AdvReac Type Severity Reaction Status Date / Time lisinopril Allergy Intermediate hyperkalemi Verified 03/22/22 15:35 a hydralazine Allergy Unknown Verified 04/05/22 09:32 hydrochlorothiazide Allergy Unknown Verified 04/05/22 09:32 canagliflozin [Invokana] AdvReac Mild back pain Verified 03/22/22 15:35 lidocaine [From LIDOPRIL] AdvReac Mild Cough Verified 04/05/22 09:32 prilocaine [From LIDOPRIL] AdvReac Mild Cough Verified 04/05/22 09:32 Plan I have reviewed the history and physical and performed a pertinent physical examination on my patient. No changes have occurred unless specified. Time Spent With Patient Time: Total time managing care of this patient today ____ minutes.
[2022-04-09] MEDS: fentaNYL citrate/PF 100 MCG/2 ML VIAL 25 MCG IVPUSH (09:01)
--- NOTE | 2022-04-09 09:44 | MHC.CLN ---
F/U UNSTAGEABLE WOUND TO SACRUM. NON HEALING RIGHT BKA WITH DEBRIDEMENT 04/09. DIET CHANGED PER DIALYSIS PARAMETERS: DIABETIC 1800 KCALS, 2 GRAM SODIUM, LOW POTASSIUM, LOW PHOSPHORUS. ENSURE CLEAR TID PROVIDES ADDITIONAL 720 KCALS, 24 G PROTEIN. ADDITIONAL PROTEIN TO PROMOTE WOUND HEALING. FOLLOW FOR INTAKE AND WOUND HEALING.
--- NOTE | 2022-04-09 10:25 | PM.PNNEP ---
Subjective Subjective Date of Service: 04/10/22 Physical Exam Vital Signs: Vital Signs: Last Vital Signs Temp 97.3 F 04/09/22 09:22 Pulse 54 04/09/22 09:22 Resp 18 04/09/22 09:22 BP 133/37 L 04/09/22 09:22 Pulse Ox 96 04/09/22 09:22 O2 Del Method 04/09/22 09:22 O2 Flow Rate 6 04/09/22 08:52 BMI result Body Mass Index 23.3 Const: General: alert and awake Orientation/consciousness: oriented to person, oriented to place and oriented to time HEENT: Head: Yes normocephalic and Yes atraumatic Chest: Chest palpation & inspection: normal inspection of the chest Resp: Effort & Inspection: normal respiratory effort, no audible wheezes and no cough Auscultation: no crackles Cardio: Rate: regular rate Rhythm: regular rhythm GI: Palpation (GI): nontender Neuro: General: oriented to person, oriented to place and oriented to time Extrem: General: No edema Objective Data Labs 04/07/22 05:53 04/05/22 05:58 Labs: Laboratory Results - last 24 hr 04/08/22 04/08/22 04/08/22 11:16 16:47 19:49 POC Glucose 126 H 174 H 178 H 04/09/22 06:38 POC Glucose 114 Microbiology Microbiology Results: Microbiology 03/30/22 18:38 Blood - Venous Blood Culture - Final No growth after 5 days. 03/30/22 18:38 Blood - Venous Blood Culture - Final No growth after 5 days. Procedures Date of Service Date of Service: 04/09/22 Assessment & Plan Assessment and plan (1) Dehiscence of operative wound: Status: Acute (2) Cholecystitis with cholelithiasis: Status: Acute (3) ESRD (end stage renal disease) on dialysis: Status: Acute (4) Decubitus ulcer: Status: Acute Plan Mr. Jean-Pierre Calderón is a 76-year-old gentleman with past medical history of ESRD on HD (MWF @ [facility]), DM2, recent R BKA who presented with acute abdominal pain and found to have acute cholecystitis and is now s/p Cholecystostomy tube. Patient also has wound dehiscence of Right BKA stump undergoing operative management with Vascular. # ESRD MWF at [place] [facility] AVF in place Plan: - Last dialyzed 04/06/22 - Next HD will be SATURDAY to accomodate OR schedule on Saturday. - After Saturday we will continue dialysis on Sat per MWF schedule - Continue ceftriaxone and flagyl - Wound dehiscence lateral BKA postop wound vascular surgery will take pt to OR Saturday -? continue sevelamer, renal diet - anemia of ESRD procrit orderd with HD # HTN stable blood pressure, continue carvedilol, amlodipine, losartan, and bumetanide Time Spent With Patient Time: Total time managing care of this patient today ____ minutes. Progress Note: Quality Stroke Does the patient have a stroke diagnosis?: No
[2022-04-09 10:35] LABS: Glucose, Whole Blood 104 mg/dL (60-115)
[2022-04-09] MEDS: Fenofibrate 160 MG TABLET PO (10:49)
[2022-04-09] MEDS: Heparin Sodium,Porcine 5,000 UNIT/ML VIAL 5000 UNIT SUBCUT (10:49)
[2022-04-09] MEDS: Sevelamer Carbonate Tablet 800 MG TABLET 1600 MG PO ×2 (10:49→17:09)
[2022-04-09] MEDS: Multivitamin TABLET 1 TAB PO (10:50)
[2022-04-09] MEDS: UrsodioL 300 MG CAPSULE PO ×2 (10:50→20:06)
[2022-04-09] MEDS: Aspirin Enteric Coated 81 MG TABLET.DR PO (10:50)
[2022-04-09] MEDS: Losartan Potassium 50 MG TABLET 100 MG PO (10:50)
[2022-04-09] MEDS: Bumetanide 1 MG TABLET PO (10:51)
[2022-04-09] MEDS: carvediloL 25 MG TABLET PO ×2 (10:51→20:06)
[2022-04-09] MEDS: Ferrous Sulfate 324 MG TABLET.DR PO ×3 (10:51→20:06)
--- NOTE | 2022-04-09 12:53 | MHC.CM.PN ---
PATIENT BACK FROM O.R. NO PLAN FOR DC TODAY [facility] MADE AWARE VIA [employer]
--- NOTE | 2022-04-09 14:38 | HO.PM.IMPN ---
Subjective Subjective Date of Service: 04/09/22 Interval History: Tolerated surgical repair without issue. No acute complaints Review of Systems Denies chest pain Denies shortness of breath Denies nausea vomiting diarrhea Denies fever chills Physical Exam Vital Signs: Vital Signs: Last Vital Signs Temp 97.4 F 04/09/22 10:28 Pulse 56 04/09/22 10:28 Resp 16 04/09/22 10:28 BP 129/49 L 04/09/22 10:28 Pulse Ox 94 04/09/22 10:28 O2 Del Method 04/09/22 10:28 O2 Flow Rate 6 04/09/22 08:52 BMI result Body Mass Index 23.3 Const: Other: Awake no acute distress Resp: Other: Clear to auscultation bilaterally no rales rhonchi or wheezes Cardio: Other: No S4; positive S1-S2; S3 murmurs rubs or gallops GI: Other: Mild tenderness about percutaneous drain right upper quadrant; bowel sounds quiet Extrem: Other: Wound dehiscence right amputation site Objective Data Active Medications Acetaminophen (Acetaminophen 325 Mg Tablet) 650 mg PO Q6H PRN PRN Reason: Pain, Mild (Pain Scale 1-3) Last Admin: 04/09/22 10:51 Dose: 650 mg Documented By: COTEMA Acetaminophen (Acetaminophen 325 Mg Tablet) 650 mg PO ONCE PRN PRN Reason: Pain, Mild (Pain Scale 1-3) Amlodipine Besylate (Amlodipine Besylate 5 Mg Tablet) 5 mg PO BEDTIME [facility]; Protocol Last Admin: 04/08/22 20:13 Dose: 5 mg Documented By: OUSMANE Aspirin (Aspirin Enteric Coated 81 Mg Tablet.) 81 mg PO DAILY [facility] Last Admin: 04/09/22 10:50 Dose: 81 mg Documented By: COTMELBA Atorvastatin Calcium (Atorvastatin Calcium 40 Mg Tablet) 40 mg PO BEDTIME [facility] Last Admin: 04/08/22 20:13 Dose: 40 mg Documented By: OUSMANE Bumetanide (Bumetanide 1 Mg Tablet) 1 mg PO DAILY [facility]; Protocol Last Admin: 04/09/22 10:51 Dose: 1 mg Documented By: TRAVIS Carvedilol (Carvedilol 25 Mg Tablet) 25 mg PO BID [facility]; Protocol Last Admin: 04/09/22 10:51 Dose: 25 mg Documented By: TRAVIS Dextrose (Dextrose 50 % 25 Gm/50 Ml Syringe) 25 gm IVPUSH Q15M PRN; Protocol PRN Reason: per Hypoglycemia Standing Ord. Last Admin: 04/02/22 13:53 Dose: 25 gm Documented By: GLENYS Dextrose (Dextrose 50 % 25 Gm/50 Ml Syringe) 25 gm IVPUSH Q15M PRN PRN Reason: per Hypoglycemia Standing Ord. Docusate Sodium (Docusate Sodium 100 Mg Capsule) 100 mg PO DAILY PRN PRN Reason: Constipation Last Admin: 04/09/22 03:22 Dose: 100 mg Documented By: OUSMANE Epoetin Jostin 2,000 unit/ (Epoetin Jostin 3,000 unit) 5,000 unit IVPUSH DIALYSIS X2 MOWEFR [facility] Last Admin: 04/06/22 20:50 Dose: Not Given Documented By: CY Non-Admin Reason: already scanned and given with previous order Ergocalciferol (Ergocalciferol (Vitamin D2) 1,250 Mcg Capsule) 1,250 mcg PO FR@1000 [facility] Last Admin: 04/06/22 11:18 Dose: Not Given Documented By: KENNETH Non-Admin Reason: Pt at dialysis Fenofibrate (Fenofibrate 160 Mg Tablet) 160 mg PO DAILY [facility] Last Admin: 04/09/22 10:49 Dose: 160 mg Documented By: TRAVIS Fentanyl (Fentanyl Citrate/Pf 100 Mcg/2 Ml Vial) 25 mcg IVPUSH Q5M PRN; Protocol PRN Reason: Pain, Moderate (Pain Scale 4-6 Last Admin: 04/09/22 09:01 Dose: 25 mcg Documented By: ZNAT Ferrous Sulfate (Ferrous Sulfate 324 Mg Tablet.Dr) 324 mg PO TID [facility] Last Admin: 04/09/22 14:14 Dose: 324 mg Documented By: TRAVIS Glucose (Glucose Gel 15 Gm Gel..Gram.) 15 gm PO Q15M PRN; Protocol PRN Reason: per Hypoglycemia Standing Ord. Heparin Sodium (Porcine) (Heparin Sodium,Porcine 5,000 Unit/Ml Vial) 5,000 unit SUBCUT Q12H [facility] Last Admin: 04/09/22 10:49 Dose: 5,000 unit Documented By: PORSHAEMA Ceftriaxone Sodium 1 gm/ (Sodium Chloride) 50 mls @ 100 mls/hr IV Q24H [facility] Last Infusion: 04/08/22 22:22 Dose: 0 mls/hr Documented By: OUSMANE Metronidazole (Flagyl) 500 mg in 100 mls @ 100 mls/hr IV Q8H [facility] Last Admin: 04/09/22 14:14 Dose: 100 mls/hr Documented By: TRAVIS Sodium Chloride (Ns) 500 mls @ 20 mls/hr IVCONT .Q24H [facility] Last Admin: 04/09/22 10:02 Dose: Not Given Documented By: COTEMA Non-Admin Reason: Off Unit: Surgery Insulin Glargine (Insulin Glargine,Hum.Rec.Anlog 100 Unit/Ml 10 Ml Vial) 8 unit SUBCUT BEDTIME [facility] Last Admin: 04/01/22 21:14 Dose: 8 unit Documented By: ODRISJarek Insulin Human Lispro (Insulin Lispro 100 Unit/Ml 3 Ml Vial) 0 unit SUBCUT QIDACHS [facility]; Protocol Last Admin: 04/09/22 10:49 Dose: Not Given Documented By: PORSHAEMA Non-Admin Reason: No Insulin Coverage Losartan Potassium (Losartan Potassium 50 Mg Tablet) 100 mg PO DAILY [facility]; Protocol Last Admin: 04/09/22 10:50 Dose: 100 mg Documented By: TRAVIS Multivitamins/Vitamin C (Multivitamin Tablet) 1 tab PO DAILY [facility] Last Admin: 04/09/22 10:50 Dose: 1 tab Documented By: TRAVIS Ondansetron HCl (Ondansetron Hcl 4 Mg/2 Ml Vial) 4 mg IVPUSH Q8H PRN PRN Reason: Nausea and Vomiting Sevelamer Carbonate (Sevelamer Carbonate Tablet 800 Mg Tablet) 1,600 mg PO TIDWM [facility] Last Admin: 04/09/22 10:49 Dose: 1,600 mg Documented By: TRAVIS Sodium Chloride (0.9 % Sodium Chloride Flush 3 Ml Syringe) 3 ml IVFLUSH QSHIFT [facility] Last Admin: 04/09/22 07:19 Dose: Not Given Documented By: COTEMA Non-Admin Reason: Off Unit: Surgery Ursodiol (Ursodiol 300 Mg Capsule) 300 mg PO BID [facility] Last Admin: 04/09/22 10:50 Dose: 300 mg Documented By: COTEMA Labs 04/07/22 05:53 04/05/22 05:58 Labs: Laboratory Results - last 24 hr 04/08/22 04/08/22 04/09/22 16:47 19:49 06:38 POC Glucose 174 H 178 H 114 04/09/22 10:31 POC Glucose 104 Assessment and Plan (1) Cholecystitis with cholelithiasis: Status: Acute (2) ESRD (end stage renal disease) on dialysis: Status: Acute (3) Dehiscence of operative wound: Status: Acute Plan 76yo M with ESRD on HD, DM2, recent R BKA presenting with acute abdominal pain and found to have acute cholecystitis; wound dehiscence right stump 1.Acute cholecystitis with cholelithiasis -POD 5 s/p IR cholecystostomy.?... Continues to drain -Continue ceftriaxone and flagyl (10) -repeat CT abdomen fails to demonstrate an abscess; gall bag flat around tube. 2.Wound dehiscence lateral BKA postop wound -successful repair by vascular -re-evaluate the morning 3.ESRD on HD MWF -? continue sevelamer, renal diet -HD to be changed to Saturday by Renal to accommodate OR schedule on Saturday -follow renals/divalents 4.Anemia(ESRD) -Procrit as per Renal 5.HTN -acceptable control on current therapies -adjust as indicated 6.DM2 -acceptable control off therapies -continue correctional scale Heparin Full Code In my clinical judgment, the patient requires continued inpatient hospitalization for the following reasons: IV antibiotics and management of cholecystostomy tube and need for debridement of right BKA stump on Saturday Time Spent With Patient Time: Total time managing care of this patient today ____ minutes. Quality Stroke Does the patient have a stroke diagnosis?: No VTE Prior VTE?: No VTE Risk Level:: Medical - moderate - high VTE Device Contraindication: Treatment Not Indicated VTE Drug Contraindication: N/A - Med Ordered
[2022-04-09] MEDS: 0.9 % Sodium Chloride Flush 3 ML SYRINGE IVFLUSH (15:14)
[2022-04-09 16:43] LABS: Glucose, Whole Blood 188 mg/dL (60-115)
[2022-04-09] MEDS: Insulin Lispro 100 UNIT/ML 3 ML VIAL SUBCUT ×2 (17:09→20:06)
[2022-04-09 19:48] LABS: Glucose, Whole Blood 188 mg/dL (60-115)
[2022-04-09] MEDS: amLODIPine Besylate 5 MG TABLET PO (20:06)
[2022-04-09] MEDS: Atorvastatin Calcium 40 MG TABLET PO (20:06)
[2022-04-10] MEDS: 0.9 % Sodium Chloride Flush 3 ML SYRINGE IVFLUSH (00:10)
[2022-04-10] MEDS: Heparin Sodium,Porcine 5,000 UNIT/ML VIAL 5000 UNIT SUBCUT (00:10)
[2022-04-10] MEDS: Acetaminophen 325 MG TABLET 650 MG PO (00:22)
[2022-04-10 03:24] VITALS: BP 135/51; PULSE 53; RESP 17; TEMP 36.6; O2SAT 95
[2022-04-10] MEDS: metroNIDAZOLE/NS 500 MG/100 ML PIGGYBACK 100 MG IV (05:18)
[2022-04-10 06:33] LABS: MANUAL DIFF FLAG NO
[2022-04-10 06:53] VITALS: BP 150/90; PULSE 59; RESP 18; TEMP 36.6; O2SAT 96
[2022-04-10 06:53] LABS: Basophils Absolute Auto 0.1 X10*3/uL (0.0-0.2); Basophils Percent Auto 0.4 % (0-2); Eosinophils Absolute Auto 0.3 X10*3/uL (0.0-0.4); Hematocrit 25.2 % (42.0-52.0); Hemoglobin 8.2 g/dl (14.0-18.0); Imm Gran Abs Auto 0.12 X10*3/uL (0.00-0.03); Lymphocytes Absolute Auto 0.8 X10*3/uL (1.2-4.9); Lymphocytes Percent Auto 6.3 % (20-40); Mean Corpuscular HGB Conc 32.5 g/dl (31.0-36.0); Mean Corpuscular Volume 98.4 fL (80.0-98.0); Mean Platelet Volume 10.8 fL (9.4-12.4); Monocytes Absolute Auto 0.6 X10*3/uL (0.1-1.2); Monocytes Percent Auto 4.6 % (2-11); NRBC Pct Auto 0.2 /100WBC (0.0-0.2); Neutrophils Absolute Auto 10.6 x10*3/uL (2.0-8.3); Neutrophils Percent Auto 85.7 % (45-73); Platelet Count 334 X10*3/uL (160-400); Red Blood Count 2.56 X10*6/uL (4.60-5.80); White Blood Count 12.3 X10*3/uL (4.8-10.8)
[2022-04-10 07:04] LABS: Glucose, Whole Blood 111 mg/dL (60-115)
[2022-04-10 07:22] LABS: Alanine Aminotransferase 16 U/L (0-40); Albumin Level 2.1 g/dL (3.5-5.0); Alkaline Phosphatase 177 U/L (39-117); Aspartate Amino Transferase 22 U/L (5-37); Bilirubin Total 0.7 mg/dL (0.0-1.0); Calcium 8.7 mg/dL (8.4-10.2); Glucose Fasting 109 mg/dL (60-99); Total Protein 5.4 g/dL (6.5-8.0)
[2022-04-10 07:45] LABS: Anion Gap 21 (12-20); Blood Urea Nitrogen 61 mg/dL (9-16); Carbon Dioxide 17 mmol/L (22-29); Chloride 98 mmol/L (96-108); Creatinine Clr Calc Pharmacy 10.1; Estimated Glomerular Filt Rate 10; Sodium 131 mmol/L (135-145)
--- NOTE | 2022-04-10 09:42 | HO.VASCPN ---
Subjective Subjective Date of Service: 04/10/22 Patient reports: no new complaints and feels better Interval history: Very pleasant 76-year-old gentleman postop day 1 status post revision right below-knee amputation. Appears to be doing relatively well. Pain reasonably well controlled. He was seen in conjunction with the hospitalist team on dialysis this morning. Physical Exam Vital Signs: Vital Signs: Last Vital Signs Temp 97.8 F 04/10/22 06:53 Pulse 59 04/10/22 06:53 Resp 18 04/10/22 06:53 BP 150/90 H 04/10/22 06:53 Pulse Ox 96 04/10/22 06:53 O2 Del Method 04/10/22 06:53 O2 Flow Rate 6 04/09/22 08:52 BMI result Body Mass Index 23.3 Const: General: cooperative, healthy appearing and no acute distress Orientation/consciousness: oriented to person, oriented to place and oriented to time HEENT: Head: Yes normal to inspection Neck: Carotids: no bruits Chest: Chest palpation & inspection: normal inspection of the chest Resp: Effort & Inspection: normal respiratory effort and able to speak in complete sentences Auscultation: clear to auscultation bilaterally Cardio: Rate: regular rate Heart sounds: S1 normal heart sound present and S2 normal heart sound present GI: Inspection: Yes normal to inspection Skin: Other: Right stump dressing changed. Appears to be closing but there is some surrounding erythema. General skin exam: no rashes or lesions noted Wounds: no wounds Neuro: General: oriented to person, oriented to place, oriented to time and CN's II-XI intact bilaterally Extrem: General: Yes normal to inspection, Yes full ROM and Yes no clubbing, cyanosis or edema Psych: Appearance: grossly normal and well kempt Speech and movement: Normal speech and movement present Affect: normal affect Progress Note: A&P Assessment and plan (1) Below-knee amputation of right lower extremity with complication: Status: Acute Assessment and Plan: In short patient has revision of nonhealing right BKA stump. Appears to be doing relatively well. Stable from my perspective for discharge. Upon discharge he can see me in approximately 2 weeks as an outpatient. I do recommend 10 days of p.o. Keflex 500 mg b.i.d. to try to help control the erythema. Thank you for allowing us to participate in his care. If there are any questions or concerns please do not hesitate to contact us. Wound care upon discharge: xeroform, 4x4 and Kerlix wrap to be changed daily. Please call Dr. Swan at [phone] for 2 week follow up for suture and staple removal Time Spent With Patient Time: Total time managing care of this patient today ____ minutes. Procedures Date of Service Date of Service: 04/10/22 Quality Stroke Does the patient have a stroke diagnosis?: No VTE Prior VTE?: No VTE Risk Level:: Medical - moderate - high VTE Device Contraindication: Treatment Not Indicated VTE Drug Contraindication: N/A - Med Ordered
--- NOTE | 2022-04-10 09:58 | W.PM.DNNEP ---
Subjective Subjective This patient was seen during dialysis. Interval history: Tolerated surgical repair without issue. No acute complaints Physical Exam Vital Signs: Vital Signs: Last Vital Signs Temp 97.8 F 04/10/22 06:53 Pulse 59 04/10/22 06:53 Resp 18 04/10/22 06:53 BP 150/90 H 04/10/22 06:53 Pulse Ox 96 04/10/22 06:53 O2 Del Method 04/10/22 06:53 O2 Flow Rate 6 04/09/22 08:52 BMI result Body Mass Index 23.3 Const: General: alert and awake Orientation/consciousness: oriented to person, oriented to place and oriented to time HEENT: Head: Yes normocephalic and Yes atraumatic Chest: Chest palpation & inspection: normal inspection of the chest Resp: Effort & Inspection: normal respiratory effort, no audible wheezes and no cough Auscultation: clear to auscultation bilaterally and no crackles Cardio: Rate: regular rate Rhythm: regular rhythm Heart sounds: S1 normal heart sound present and S2 normal heart sound present GI: Palpation (GI): Soft to palpation, nontender and no guarding Neuro: General: oriented to person, oriented to place and oriented to time Extrem: General: No edema Assessment & Plan Assessment and plan (1) Dehiscence of operative wound: Status: Acute (2) Cholecystitis with cholelithiasis: Status: Acute (3) ESRD (end stage renal disease) on dialysis: Status: Acute (4) Decubitus ulcer: Status: Acute Plan Mr. Jean-Pierre Calderón is a 76-year-old gentleman with past medical history of ESRD on HD (MWF @ [facility]), DM2, recent R BKA who presented with acute abdominal pain and found to have acute cholecystitis and is now s/p Cholecystostomy tube. Patient also has wound dehiscence of Right BKA stump undergoing operative management with Vascular. # ESRD MWF at [facility] AVF in [facility] Plan: - After Saturday we will continue dialysis on Sat per [facility] schedule - Continue ceftriaxone and flagyl - Wound dehiscence lateral BKA postop wound vascular surgery will take pt to OR Saturday -? continue sevelamer, renal diet - anemia of ESRD procrit orderd with HD # HTN stable blood pressure, continue carvedilol, amlodipine, losartan, and bumetanide Time Spent With Patient Time: Total time managing care of this patient today ____ minutes. Procedures Date of Service Date of Service: 04/10/22
--- NOTE | 2022-04-10 10:44 | MHC.CM.PN ---
Pt will d/c to home today with existing [facility] Call placed to dtr Margo who states pt's son and dtr will be at the home to receive pt and continue care. MD and pt updated on d/c plan.
--- NOTE | 2022-04-10 10:57 | P.PNGS_ITS ---
Subjective Subjective Date of Service: 04/10/22 Interval history: Patient indicating he did not want to go to dialysis. Denies abdominal pain. Physical Exam Vital Signs: Vital Signs: Last Vital Signs Temp 97.8 F 04/10/22 06:53 Pulse 59 04/10/22 06:53 Resp 18 04/10/22 06:53 BP 150/90 H 04/10/22 06:53 Pulse Ox 96 04/10/22 06:53 O2 Del Method 04/10/22 06:53 O2 Flow Rate 6 04/09/22 08:52 BMI result Body Mass Index 23.3 Const: General: no acute distress Nutritional Appearance: well nourished Eyes: Sclerae: sclerae normal GI: Other: Drain site is clean and intact; thick, dark bile noted in suction bulb. No blood or clots appreciated. Objective Data Active Medications Acetaminophen (Acetaminophen 325 Mg Tablet) 650 mg PO Q6H PRN PRN Reason: Pain, Mild (Pain Scale 1-3) Last Admin: 04/10/22 00:22 Dose: 650 mg Documented By: IRMA Acetaminophen (Acetaminophen 325 Mg Tablet) 650 mg PO ONCE PRN PRN Reason: Pain, Mild (Pain Scale 1-3) Amlodipine Besylate (Amlodipine Besylate 5 Mg Tablet) 5 mg PO BEDTIME [facility]; Protocol Last Admin: 04/09/22 20:06 Dose: 5 mg Documented By: OUSMANE Aspirin (Aspirin Enteric Coated 81 Mg Tablet.) 81 mg PO DAILY [facility] Last Admin: 04/09/22 10:50 Dose: 81 mg Documented By: TRAVIS Atorvastatin Calcium (Atorvastatin Calcium 40 Mg Tablet) 40 mg PO BEDTIME HANH Last Admin: 04/09/22 20:06 Dose: 40 mg Documented By: OUSMANE Bumetanide (Bumetanide 1 Mg Tablet) 1 mg PO DAILY [facility]; Protocol Last Admin: 04/09/22 10:51 Dose: 1 mg Documented By: TARVIS Carvedilol (Carvedilol 25 Mg Tablet) 25 mg PO BID [facility]; Protocol Last Admin: 04/09/22 20:06 Dose: 25 mg Documented By: OUSMANE Dextrose (Dextrose 50 % 25 Gm/50 Ml Syringe) 25 gm IVPUSH Q15M PRN; Protocol PRN Reason: per Hypoglycemia Standing Ord. Last Admin: 04/02/22 13:53 Dose: 25 gm Documented By: GLENYS Dextrose (Dextrose 50 % 25 Gm/50 Ml Syringe) 25 gm IVPUSH Q15M PRN PRN Reason: per Hypoglycemia Standing Ord. Docusate Sodium (Docusate Sodium 100 Mg Capsule) 100 mg PO DAILY PRN PRN Reason: Constipation Last Admin: 04/09/22 03:22 Dose: 100 mg Documented By: OUSMANE Epoetin Jostin 2,000 unit/ (Epoetin Jostin 3,000 unit) 5,000 unit IVPUSH DIALYSIS X2 MOWEFR [facility] Last Admin: 04/09/22 16:22 Dose: Not Given Documented By: TRAVIS Non-Admin Reason: no dialysis today Epoetin Jostin 2,000 unit/ (Epoetin Jostin 3,000 unit) 5,000 unit IVPUSH DIALYSIS X2 TUTHSA [facility] Stop: 04/10/22 17:46 Ergocalciferol (Ergocalciferol (Vitamin D2) 1,250 Mcg Capsule) 1,250 mcg PO FR@1000 [facility] Last Admin: 04/06/22 11:18 Dose: Not Given Documented By: KENNETH Non-Admin Reason: Pt at dialysis Fenofibrate (Fenofibrate 160 Mg Tablet) 160 mg PO DAILY [facility] Last Admin: 04/09/22 10:49 Dose: 160 mg Documented By: TRAVIS Fentanyl (Fentanyl Citrate/Pf 100 Mcg/2 Ml Vial) 25 mcg IVPUSH Q5M PRN; Protocol PRN Reason: Pain, Moderate (Pain Scale 4-6 Last Admin: 04/09/22 09:01 Dose: 25 mcg Documented By: MARY ANN Ferrous Sulfate (Ferrous Sulfate 324 Mg Tablet.Dr) 324 mg PO TID [facility] Last Admin: 04/09/22 20:06 Dose: 324 mg Documented By: OUSMANE Glucose (Glucose Gel 15 Gm Gel..Gram.) 15 gm PO Q15M PRN; Protocol PRN Reason: per Hypoglycemia Standing Ord. Heparin Sodium (Porcine) (Heparin Sodium,Porcine 5,000 Unit/Ml Vial) 5,000 unit SUBCUT Q12H [facility] Last Admin: 04/10/22 00:10 Dose: 5,000 unit Documented By: OZORALB Metronidazole (Flagyl) 500 mg in 100 mls @ 100 mls/hr IV Q8H [facility] Last Infusion: 04/10/22 06:24 Dose: 0 mls/hr Documented By: OUSMANE Sodium Chloride (Ns) 500 mls @ 20 mls/hr IVCONT .Q24H [facility] Last Admin: 04/10/22 07:09 Dose: Not Given Documented By: TRAVIS Non-Admin Reason: pre op fluids Insulin Glargine (Insulin Glargine,Hum.Rec.Anlog 100 Unit/Ml 10 Ml Vial) 8 unit SUBCUT BEDTIME [facility] Last Admin: 04/01/22 21:14 Dose: 8 unit Documented By: ODRISM Insulin Human Lispro (Insulin Lispro 100 Unit/Ml 3 Ml Vial) 0 unit SUBCUT QIDACHS [facility]; Protocol Last Admin: 04/10/22 07:09 Dose: Not Given Documented By: TRAVIS Non-Admin Reason: No Insulin Coverage Losartan Potassium (Losartan Potassium 50 Mg Tablet) 100 mg PO DAILY [facility]; Prot ocol Last Admin: 04/09/22 10:50 Dose: 100 mg Documented By: TRAVIS Multivitamins/Vitamin C (Multivitamin Tablet) 1 tab PO DAILY [facility] Last Admin: 04/09/22 10:50 Dose: 1 tab Documented By: TRAVIS Ondansetron HCl (Ondansetron Hcl 4 Mg/2 Ml Vial) 4 mg IVPUSH Q8H PRN PRN Reason: Nausea and Vomiting Sevelamer Carbonate (Sevelamer Carbonate Tablet 800 Mg Tablet) 1,600 mg PO TIDWM [facility] Last Admin: 04/10/22 08:13 Dose: Not Given Documented By: TRAVIS Non-Admin Reason: Off unit: Dialysis Sodium Chloride (0.9 % Sodium Chloride Flush 3 Ml Syringe) 3 ml IVFLUSH QSHIFT [facility] Last Admin: 04/10/22 08:13 Dose: Not Given Documented By: TRAVIS Non-Admin Reason: Off unit: Dialysis Ursodiol (Ursodiol 300 Mg Capsule) 300 mg PO BID [facility] Last Admin: 04/09/22 20:06 Dose: 300 mg Documented By: OUSMANE Labs 04/10/22 06:07 04/10/22 06:07 Labs: Laboratory Results - last 24 hr 04/09/22 04/09/22 04/10/22 16:35 19:36 06:07 MCV 98.4 H MCH 32.0 MCHC 32.5 RDW 20.0 H Plt Count 334 MPV 10.8 Immature Gran % (Auto) 1.0 H Neut % (Auto) 85.7 H Lymph % (Auto) 6.3 L [place] % (Auto) 4.6 Eos % (Auto) 2.0 Baso % (Auto) 0.4 Lymph # (Auto) 0.8 L [place] # (Auto) 0.6 Eos # (Auto) 0.3 Baso # (Auto) 0.1 Abs Immat Gran (auto) 0.12 H Absolute Neuts (auto) 10.6 H Absolute Nucleated RBC 0.020 H Nucleated RBC % (auto) 0.2 Anion Gap Estim Creat Clear Calc Estimated GFR POC Glucose 188 H 188 H Fasting Glucose Calcium Total Bilirubin AST ALT Alkaline Phosphatase Total Protein Albumin 04/10/22 04/10/22 06:07 06:53 MCV MCH MCHC RDW Plt Count MPV Immature Gran % (Auto) Neut % (Auto) Lymph % (Auto) [place] % (Auto) Eos % (Auto) Baso % (Auto) Lymph # (Auto) [place] # (Auto) Eos # (Auto) Baso # (Auto) Abs Immat Gran (auto) Absolute Neuts (auto) Absolute Nucleated RBC Nucleated RBC % (auto) Anion Gap 21 H Estim Creat Clear Calc 10.1 Estimated GFR 10 POC Glucose 111 Fasting Glucose 109 H Calcium 8.7 Total Bilirubin 0.7 AST 22 ALT 16 Alkaline Phosphatase 177 H Total Protein 5.4 L Albumin 2.1 L Procedures Date of Service Date of Service: 04/10/22 Progress Note: A&P Assessment and plan (1) Cholecystitis with cholelithiasis: Status: Acute Plan Overall patient appears improved with decreased abdominal pain. IR cholecystostomy is intact draining thick bilious fluid. No leak noted. Continue drainage tube. Will manage tube removal as outpatient. Time Spent With Patient Time: Total time managing care of this patient today ____ minutes. Quality Stroke Does the patient have a stroke diagnosis?: No VTE Prior VTE?: No VTE Risk Level:: Medical - moderate - high VTE Device Contraindication: Treatment Not Indicated VTE Drug Contraindication: N/A - Med Ordered
--- NOTE | 2022-04-10 11:35 | P.DS_ITS ---
DS: Providers Provider Date of Service: 04/10/22 Date of admission: 03/30/22 22:07 Date of discharge: 04/10/22 Primary care physician: Sanjana Guerrero MD Consults: 03/30/22 20:12 Consult to General Surgery Stat Consulting Provider: Pool Sheikh Reason for consultation: Cholecystitis Consult to Vascular Surgery Stat Consulting Provider: August Swan Reason for consultation: Splenic infarct 03/30/22 22:03 Consult to Nephrology Routine Consulting Provider: [facility] Reason for consultation: Dialysis Has provider been notified: No 03/31/22 02:14 Consult to Wound Care Routine Consulting Provider: Janey Packer Reason for consultation: sacral pressure ulcer 03/31/22 10:25 Consult to Gastroenterology Routine Consulting Provider: Lisa Irving Reason for consultation: elevated LFTs 04/04/22 16:32 Consult to Infectious Diseases Routine Consulting Provider: Yris Park Reason for consultation: Cholecystitis s/p cholecystostomy, leukocytosis DS: Diagnosis Discharge Diagnosis (1) Cholecystitis with cholelithiasis: Status: Acute (2) ESRD (end stage renal disease) on dialysis: Status: Acute (3) Hypertension: Status: Acute (4) Diabetes: Status: Acute DS: Summary Hospital Course Hospital Course: 76-year-old male [place]-speaking, hard of hearing, with past medical history of ESRD on dialysis Saturday, diabetes, mixed hyperlipidemia, status post bilateral BKA, presents to the hospital with complaint of severe abdominal pain. Patient presented to emergency room and workup was consistent with acute cholecystitis and cholelithiasis. He also noted that his new right stump wound had opened up. He was admitted to telemetry and surgical consult was obtained. Surgery recommended IR percutaneous drainage;on 04/02/[address]-guided cholecystostomy drainage catheter was placed without incident. Patient was started on ceftriaxone and Flagyl upon admission and continued to do well after drainage tube placed. On 04/04 vascular surgery consult placed and on 04/09 patient underwent debridement and repair of right stump dehiscence without complication. At this point in time per ID recommendation he will be discharged on 1 week of Ceftin and Flagyl. He will follow-up with vascular surgery for suture removal; Dr. Sheikh will manage drain removal as an outpatient Time Spent with Patient Time attestation: Total time managing care of this patient today ____ minutes. Discharge coordination time: Greater than 30 minutes Quality: Safe Use of Opioids Does Pt have an Active Cancer Diagnosis on the Problem List?: No Quality: Stroke Does the patient have a stroke diagnosis?: No Physical Exam Vital Signs: Vital Signs: Last Vital Signs Temp 97.8 F 04/10/22 06:53 Pulse 59 04/10/22 06:53 Resp 18 04/10/22 06:53 BP 150/90 H 04/10/22 06:53 Pulse Ox 96 04/10/22 06:53 O2 Del Method 04/10/22 06:53 O2 Flow Rate 6 04/09/22 08:52 BMI result Body Mass Index 23.3 Const: Other: Awake no acute distress Resp: Other: Clear to auscultation bilaterally no rales rhonchi or wheezes Cardio: Other: No S4; positive S1-S2; S3 murmurs rubs or gallops GI: Other: Mild tenderness about percutaneous drain right upper quadrant; bowel sounds quiet Extrem: Other: Wound dehiscence right amputation site DS: Data Data Completed and Pending Completed studies during hospitalization [Text1]: Procedures Detachment at Left Lower Leg, Mid, Open Approach (06/01/21) Detachment at Right Lower Leg, Mid, Open Approach (03/06/22) Performance of Urinary Filtration, Intermittent, Less than 6 Hours Per Day (03/06/22) Transfusion of Nonautologous Red Blood Cells into Peripheral Vein, Percutaneous Approach (03/06/22) Labs on day of discharge: Laboratory Results - last 24 hr 04/09/22 04/09/22 04/10/22 16:35 19:36 06:07 WBC 12.3 H RBC 2.56 L Hgb 8.2 L Hct 25.2 L MCV 98.4 H MCH 32.0 MCHC 32.5 RDW 20.0 H Plt Count 334 MPV 10.8 Immature Gran % (Auto) 1.0 H Neut % (Auto) 85.7 H Lymph % (Auto) 6.3 L [place] % (Auto) 4.6 Eos % (Auto) 2.0 Baso % (Auto) 0.4 Lymph # (Auto) 0.8 L [place] # (Auto) 0.6 Eos # (Auto) 0.3 Baso # (Auto) 0.1 Abs Immat Gran (auto) 0.12 H Absolute Neuts (auto) 10.6 H Absolute Nucleated RBC 0.020 H Nucleated RBC % (auto) 0.2 Sodium Potassium Chloride Carbon Dioxide Anion Gap BUN Creatinine Estim Creat Clear Calc Estimated GFR POC Glucose 188 H 188 H Fasting Glucose Calcium Total Bilirubin AST ALT Alkaline Phosphatase Total Protein Albumin 04/10/22 04/10/22 06:07 06:53 WBC RBC Hgb Hct MCV MCH MCHC RDW Plt Count MPV Immature Gran % (Auto) Neut % (Auto) Lymph % (Auto) [place] % (Auto) Eos % (Auto) Baso % (Auto) Lymph # (Auto) [place] # (Auto) Eos # (Auto) Baso # (Auto) Abs Immat Gran (auto) Absolute Neuts (auto) Absolute Nucleated RBC Nucleated RBC % (auto) Sodium 131 L Potassium 5.0 D Chloride 98 Carbon Dioxide 17 L Anion Gap 21 H BUN 61 H Creatinine 5.47 H* Estim Creat Clear Calc 10.1 Estimated GFR 10 POC Glucose 111 Fasting Glucose 109 H Calcium 8.7 Total Bilirubin 0.7 AST 22 ALT 16 Alkaline Phosphatase 177 H Total Protein 5.4 L Albumin 2.1 L Discharge Plan Discharge Anticipated Discharge Date/Time: 04/10/22 11:18 Patient Disposition: Home Health Service Discharge Diagnosis: Cholecystitis with cholelithiasis Referrals: Sanjana Huitron MD [Primary Care Provider] - 1 Week Discharge Medications: New cefuroxime axetil 500 mg tablet 500 mg PO DAILY 7 Days Qty: 7 0RF metronidazole 500 mg tablet 500 mg PO Q8H 7 Days Qty: 21 0RF Continued (DME) diabetic shoes 9 See Rx Instructions .Route .MEDSUPPLY Qty: 1 0RF Rx Instructions: As directed (DME) Gel mattress overlay Misc See Rx Instructions .Route Qty: 1 0RF Rx Instructions: As directed atorvastatin 40 mg tablet 40 mg PO BEDTIME 90 Days Qty: 90 1RF acetaminophen [Mapap Arthritis Pain] 650 mg tablet extended release 650 mg PO Q8H PRN (Reason: pain) 30 Days Qty: 90 1RF bumetanide 1 mg tablet 1 mg PO DAILY Qty: 30 6RF fenofibrate nanocrystallized 145 mg tablet 145 mg PO DAILY Qty: 30 6RF ferrous sulfate 325 mg (65 mg iron) tablet 325 mg PO TID 30 Days Qty: 90 6RF insulin glargine U-300 conc 300 unit/mL (3 mL) insulin pen 10 unit subcut BID Qty: 6 0RF (DME) FreeStyle Lite Strips Strip See Rx Instructions .Route Qty: 100 11RF Rx Instructions: Use 1 test strip TID carvedilol 25 mg tablet 1 tab PO BID aspirin 81 mg tablet,delayed release (DR/EC) 1 tab PO DAILY ursodiol 300 mg capsule 1 cap PO BID amlodipine 5 mg tablet 5 mg PO BEDTIME Virt-Caps 1 mg Capsule 1 cap PO DAILY tramadol 50 mg Tablet 50 mg PO DAILY PRN (Reason: Pain) ergocalciferol (vitamin D2) [Vitamin D2] 1,250 mcg (50,000 unit) capsule 1,250 mcg PO FR@1000 (DME) Blood Pressure Cuff Misc See Rx Instructions .Route Qty: 1 0RF Rx Instructions: As directed (DME) blood-glucose meter [FreeStyle Lite Meter] Kit See Rx Instructions .Route Qty: 1 0RF Rx Instructions: As directed (DME) lancets [FreeStyle Lancets] 28 gauge misc See Rx Instructions .Route Qty: 100 10RF Rx Instructions: Use 1 lancet once a day sevelamer carbonate 800 mg tablet 1,600 mg PO TIDWM (DME) blood pressure monitor Kit See Rx Instructions .Route Qty: 1 0RF Rx Instructions: As directed losartan 100 mg tablet 100 mg PO DAILY Discharge Orders: Discharge Order (Routine); Ordered 04/10/22 Ordered By: Baljit Koch Diet: Advance to usual diet Activity on Discharge: As tolerated Stand Alone Forms: Patient Portal Discharge page Activity Restrictions/Additional Instructions: Wound care upon discharge: xeroform, 4x4 and Kerlix wrap to be changed daily. Please call Dr. Swan at [phone] for 2 week follow up for suture and staple removal Care Plan Goals: Complete course of Ceftin and Flagyl as ordered Health Concerns: Hemodialysis as per Nephrology; follow-up with PCP and Nephrology as scheduled Plan of Treatment: Dressing as per Dr. Swan; call his office for 2 week follow-up Assessment: See discharge summary
--- NOTE | 2022-04-10 12:12 | HO.POSTANES ---
Post Anesthesia Evaluation Post Anesthesia Evaluation Vital Signs: Vital Signs Temp Pulse Resp BP Pulse Ox O2 Del Method 04/10/22 06:53 97.8 F 59 18 150/90 H 96 Room Air 04/10/22 03:24 98 F 53 17 135/51 L 95 Room Air Anesthesia: General Mental Status: Awake Pain Control: Satisfactory Nausea/Vomiting: None Hydration: Adequate Anesthesia-Related Issues: No Anes. Related Issues
[2022-04-10 12:38] LABS: Glucose, Whole Blood 95 mg/dL (60-115)
[2022-04-10 12:44] VITALS: BP 131/85; PULSE 95; RESP 20; TEMP 36.6; O2SAT 96
--- NOTE | 2022-04-11 11:21 | MHC.CM.PN ---
POST D/C NOTE: CM RECEIVED CALL FROM PT'S DTR REPORTING THERE WERE NO WOUND CARE INSTRUCTIONS FOR PT'S DECUBITIS ULCER, PER NSG NOTES WOUND WAS BEING CLEANED W/NORMAL SALIGN W/FOAM DRESSING APPLIED, HOSPITALIST NOTIFIED VIA TIGER AND CM WILL FAX UPDATED D/C SUMMARY TO [employer] [facility] ONCE UPDATED.
== END 2022-04-10 14:39 | disposition home health service (06) | DRG 500 ==
LOC: HO.ED 20:30 → HO.EDOVER 22:13 → HO.S3 03-31 00:07
PROVIDERS: Family Medicine; Hospitalist; Nurse Practitioner Family; Physician Assistant; Radiology Diagnostic Radiology; Surgery Vascular Surgery; Admitting Provider Internal Medicine; Emergency Provider Emergency Medicine; PCP Internal Medicine; Visit Provider Hospitalist
PROC: 0F9430Z Drainage of Gallbladder with Drainage Device, Percutaneous Approach (ICD-10-PCS; principal; 2022-04-02 14:00)
PROC: 0KBQ0ZZ Excision of Right Upper Leg Muscle, Open Approach (ICD-10-PCS; principal; 2022-04-09 07:30)
DX: T87.81 Dehiscence of amputation stump (principal); N18.6 End stage renal disease; K80.00 Calculus of gallbladder with acute cholecystitis without obstruction; D68.9 Coagulation defect, unspecified; I12.0 Hypertensive chronic kidney disease with stage 5 chronic kidney disease or end stage renal disease; E11.52 Type 2 diabetes mellitus with diabetic peripheral angiopathy with gangrene; I25.10 Atherosclerotic heart disease of native coronary artery without angina pectoris; D63.1 Anemia in chronic kidney disease; E11.22 Type 2 diabetes mellitus with diabetic chronic kidney disease; D73.5 Infarction of spleen; E78.2 Mixed hyperlipidemia; E88.09 Other disorders of plasma-protein metabolism, not elsewhere classified; E87.5 Hyperkalemia; L89.159 Pressure ulcer of sacral region, unspecified stage; E11.649 Type 2 diabetes mellitus with hypoglycemia without coma; Z20.822 Contact with and (suspected) exposure to COVID-19; Z89.512 Acquired absence of left leg below knee; Z89.511 Acquired absence of right leg below knee; Z99.2 Dependence on renal dialysis; I69.334 Monoplegia of upper limb following cerebral infarction affecting left non-dominant side; Z95.1 Presence of aortocoronary bypass graft; Z88.8 Allergy status to other drugs, medicaments and biological substances; Z79.82 Long term (current) use of aspirin; Z79.4 Long term (current) use of insulin; Z79.899 Other long term (current) drug therapy
CPT/HCPCS: 0241U; 36415; 49405; 71045; 74150; 74176; 76700; 76882; 80048; 80053; 80076; 82947; 83605; 83690; 84484; 85025; 85027; 85610; 85730; 86140; 87040; 90935; 90999; 93005; 93306; 99285; C1729; J0696; J0885; J1643; J2250; J2370; J2405; J2543; J2795; J3010; Q4186; Q9957

== ENCOUNTER 2022-04-19 07:53 | Outpatient (RCR) | payer OTHER, SELFPAY | END 2022-05-10 11:00 | disposition home or self-care (01) | LOC: HO.WCC 07:53 | PROVIDERS: PCP Internal Medicine; Visit Provider Surgery | DX: E11.622 Type 2 diabetes mellitus with other skin ulcer (principal); L89.154 Pressure ulcer of sacral region, stage 4; S81.801D Unspecified open wound, right lower leg, subsequent encounter; T87.43 Infection of amputation stump, right lower extremity; E11.22 Type 2 diabetes mellitus with diabetic chronic kidney disease; I13.0 Hypertensive heart and chronic kidney disease with heart failure and stage 1 through stage 4 chronic kidney disease, or unspecified chronic kidney disease; I50.9 Heart failure, unspecified; N18.6 End stage renal disease; R09.02 Hypoxemia; R41.82 Altered mental status, unspecified; Z99.2 Dependence on renal dialysis; Z89.512 Acquired absence of left leg below knee; Z89.511 Acquired absence of right leg below knee | CPT/HCPCS: 11043; 11045; 11046; 97597; 97598; 99213 ==

== ENCOUNTER 2022-04-23 15:06 | Inpatient (IN) | payer OTHER, SELFPAY ==
--- NOTE | ~2022-04-23 | CT_ITS ---
EXAMINATION: CT ABDOMEN AND PELVIS WITHOUT CONTRAST CLINICAL INFORMATION: s/p J drain, with anemia and bloody d/c, abd pain . COMPARISON: 04/07/2022. TECHNIQUE: Multidetector volumetric imaging was performed from the superior aspect of the liver through the pubic symphysis without contrast per request. Sagittal and coronal reformatted images were obtained on the technologist workstation. This CT examination was performed using dose optimization techniques as appropriate, variously including the following: *Automated exposure control *Adjustment of mA and/or kV according to patient size (this includes techniques or standardized protocols for targeted exams where dose is matched to indication/reason for exam; i.e. extremities or head) *Use of iterative reconstruction technique DLP: 636 mGy-cm. FINDINGS: LUNG BASES: Small right and tiny left pleural effusion with associated basilar atelectasis. Extensive vascular calcification. Patient is status post CABG LIVER, GALLBLADDER, BILIARY TREE: The non-contrast liver is normal in size, shape, and attenuation. No focal hepatic lesion or biliary ductal dilatation is present. Cholecystostomy tube is seen within the decompressed gallbladder. The amount of pericholecystic inflammatory changes has improved from the prior study. PANCREAS: Unremarkable. SPLEEN: Unremarkable. ADRENAL GLANDS: Unremarkable. KIDNEYS AND URETERS: The kidneys are normal in size, shape, and attenuation. No hydronephrosis, hydroureter, or calculi seen. No perinephric stranding. BLADDER: Unremarkable. GASTROINTESTINAL TRACT: Colon is mostly decompressed. A few scattered colonic diverticula are seen. No obstructive changes. Visualized small bowel unremarkable mild perirectal inflammatory changes nonspecific. ABDOMINAL WALL: No significant hernia is appreciated. There may be a sacral decubitus ulcer but this could be clinically correlated. LYMPHOVASCULAR STRUCTURES: Extensive vascular calcification. No bulky adenopathy. PELVIC VISCERA: Unremarkable. OSSEUS STRUCTURES: Multilevel degenerative changes in the spine CT/CT abdomen pelvis wo IV con IMPRESSION: Cholecystostomy tube is seen within the decompressed gallbladder. The amount of pericholecystic inflammatory changes has improved from the 04/07/2022 study.
--- NOTE | ~2022-04-23 | CT_ITS ---
EXAMINATION: CT ANGIOGRAM ABDOMEN AND PELVIS CLINICAL INFORMATION: Hemobilia COMPARISON: CT abdomen pelvis 04/23/2022 TECHNIQUE: Multiple axial images were obtained through the abdomen and pelvis following the administration of 80 mL of Omnipaque 350 intravenous contrast in arterial and 7 minute delayed phase. Images were reviewed on a dedicated 3-D workstation. This CT examination was performed using dose optimization techniques as appropriate, variously including the following: *Automated exposure control *Adjustment of mA and/or kV according to patient size (this includes techniques or standardized protocols for targeted exams where dose is matched to indication/reason for exam; i.e. extremities or head) *Use of iterative reconstruction technique DLP: 961 mGy-cm FINDINGS: Vascular findings: Extensive diffuse vascular calcifications. Thoracic aorta: Normal caliber visualized distal descending thoracic aorta with mild vascular calcification. Abdominal aorta: Normal caliber. No aneurysm or dissection. Mild to moderate vascular calcifications. Iliac arteries: Patent bilaterally with extensive calcifications. No hemodynamically significant stenosis. Femoral arteries: Extensive vascular calcifications and mild luminal irregularity/narrowing of the common femoral arteries. Mild to moderate stenosis of the proximal right SFA. Celiac artery: Mild narrowing of the celiac artery origin. Extensive vascular calcifications. Occlusion of a segment of the splenic artery series 6 image 244. There is a 0.8 cm rounded enhancing structure in the region of the neck of the gallbladder/cystic duct on series 6 image 238 suspicious for pseudoaneurysm. Mesenteric arteries: SMA origin is patent. Extensive vascular calcifications. There is occlusion of the SMA branch series 6 image 370. ROBERTO is also occluded distal to the origin series 6 image 45. Additional findings: Small right basilar pleural effusion with passive atelectasis. Mild additional bibasilar atelectasis. Status post median sternotomy. Mitral annular calcifications. Liver: Normal size and attenuation. No liver lesion or biliary ductal dilation. Gallbladder and bile ducts: Cholecystostomy tube in place. Gallbladder is decompressed. Small amount of hyperdense material within the gallbladder lumen likely calcified stone(s), unchanged. Pancreas: No pancreatic lesion or peripancreatic inflammatory change. Spleen: Linear band of hypoattenuation in the spleen consistent with splenic infarct, unchanged. Adrenal glands: Unremarkable. Kidneys: Diminutive size/atrophy. No hydronephrosis. Small low-density benign-appearing right renal cysts, unchanged. No imaging follow-up recommended. No perinephric collections. Bladder: Slightly thick-walled appearance favored due to lack of complete distention. No focal bladder wall thickening. GI tract: Mild colonic diverticulosis. No evidence of acute diverticulitis. No dilated bowel loops. No bowel wall thickening. No free air or ascites. Abdominal wall: Small fat-containing left inguinal hernia. Lymph nodes: No lymphadenopathy. Pelvic viscera: Normal sized prostate gland. Coarse gland calcification. Osseous structures: No acute fracture or suspicious osseous lesion. There is a soft tissue ulcer overlying the coccyx. No underlying osseous erosive or destructive change. Mild diffuse multilevel thoracolumbar spondylosis. Evidence of underlying congenital spinal stenosis. CT/CT angio abdomen pelvis IMPRESSION: 1. 0.8 cm rounded enhancing structure in the region of the gallbladder neck/cystic duct suspicious for pseudoaneurysm. 2. Extensive vascular calcifications/atherosclerotic disease. 3. 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 4. 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 5. Cholecystostomy tube in place. 6. Small right pleural effusion. 7. Decubitus ulcer overlying the coccyx. No underlying osseous erosive or destructive change.
[2022-04-23 15:26] VITALS: BP 100/70; BP 102/80; PULSE 69; PULSE 82; RESP 14; TEMP 36.8; O2SAT 100; O2SAT 95; BMI 23.8
--- NOTE | 2022-04-23 16:22 | ED_ITS ---
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 Patient with history of ESRD on HD M/W/F, bilateral BKA. Chronic anemia due to ESRD patient is on Procrit. Came from dialysis concern of generalized weakness and low hemoglobin at dialysis. Patient had a recent hospitalization for acute cholecystitis and cholelithiasis and problem with right BKA stump, patient status post IR percutaneous drainage with AZAEL-drainage on 04/02 patient was discharged home on Ceftin and Flagyl. the AZAEL-drain is in place today with a bloody discharge family confirmed that that is a normal color and amount of the drainage since was placed, otherwise no GI bleed or urinary bleeding, no fever, no chills, no abdominal pain. Related Data Home Medications Medication Instructions Recorded Confirmed sevelamer carbonate 800 mg tablet 1,600 mg PO TIDWM 01/22/20 03/30/22 amlodipine 5 mg tablet 5 mg PO BEDTIME 06/01/21 03/30/22 aspirin 81 mg tablet,delayed 1 tab PO DAILY 06/01/21 03/30/22 release carvedilol 25 mg tablet 1 tab PO BID 06/01/21 03/30/22 ursodiol 300 mg capsule 1 cap PO BID 06/01/21 03/30/22 losartan 100 mg tablet 100 mg PO DAILY 01/23/22 03/30/22 ergocalciferol (vitamin D2) 1,250 1,250 mcg PO FR@1000 03/30/22 03/30/22 mcg (50,000 unit) capsule (Vitamin D2) tramadol 50 mg tablet 50 mg PO DAILY PRN Pain 03/30/22 03/30/22 vitamin B complex and vitamin C 1 cap PO DAILY 03/30/22 03/30/22 no.20-folic acid 1 mg capsule (Virt-Caps) Previous Rx's Medication Instructions Recorded diabetic shoes #1 ea 08/15/20 blood-glucose meter (FreeStyle #1 ea 04/04/21 Lite Meter kit) lancets 28 gauge (FreeStyle #100 ea 04/04/21 Lancets) miscellaneous medical supply #1 ea 04/04/21 (Blood Pressure Cuff) Gel mattress overlay #1 ea 04/17/21 blood pressure monitor #1 ea 05/02/21 atorvastatin 40 mg tablet 40 mg PO BEDTIME 90 days #90 tabs 12/28/21 acetaminophen 650 mg 650 mg PO Q8H PRN pain 30 days #90 01/28/22 tablet,extended release (Mapap tabs Arthritis Pain) bumetanide 1 mg tablet 1 mg PO DAILY #30 tabs 02/27/22 fenofibrate nanocrystallized 145 145 mg PO DAILY #30 tabs 02/27/22 mg tablet ferrous sulfate 325 mg (65 mg 325 mg PO TID 30 days #90 tabs 02/27/22 iron) tablet insulin glargine U-300 conc 300 10 unit (0.0333 mL) subcut BID #6 03/20/22 unit/mL (3 mL) subcutaneous pen mL blood sugar diagnostic (FreeStyle #100 ea 03/30/22 Lite Strips) cefuroxime axetil 500 mg tablet 500 mg PO DAILY 7 days #7 tabs 04/10/22 metronidazole 500 mg tablet 500 mg PO Q8H 7 days #21 tabs 04/10/22 Allergies Allergy/AdvReac Type Severity Reaction Status Date / Time lisinopril Allergy Intermediate hyperkalemi Verified 04/23/22 15:18 a hydralazine Allergy Unknown Verified 04/23/22 15:18 hydrochlorothiazide Allergy Unknown Verified 04/23/22 15:18 canagliflozin [Invokana] AdvReac Mild back pain Verified 04/23/22 15:18 lidocaine [From LIDOPRIL] AdvReac Mild Cough Verified 04/23/22 15:18 prilocaine [From LIDOPRIL] AdvReac Mild Cough Verified 04/23/22 15:18 Review of Systems Review of Systems: All other systems are reviewed and are negative Constitutional: Reports as per HPI and Reports no additional constitutional complaints Eyes: Reports as per HPI and Reports no additional eye complaints Reports system reviewed and no additional complaints, except as documented Cardiovascular: Reports as per HPI and Reports no additional cardiovascular complaints Respiratory: Reports as per HPI and Reports no additional respiratory complaints Gastrointestinal: Reports as per HPI and Reports no additional gastrointestinal complaints Genitourinary: Reports no additional female genitourinary complaints Musculoskeletal: Reports no additional musculoskeletal complaints Skin/Breast: Reports system reviewed and no additional complaints, except as docu Psychiatric: Reports no additional psychiatric complaints Endocrine: Reports no additional endocrine complaints Hematologic/Lymphatic: Reports no additional hematologic/lymphatic complaints Allergic/Immunologic: Reports no additional allergic/immunologic complaints Reports system reviewed and no additional complaints, except as documented and Reports Abnormal speech present [facility] Past Medical History Medical History Anemia in chronic kidney disease Below-knee amputation of left lower extremity Below-knee amputation of right lower extremity with complication CVA (cerebral vascular accident) Diabetes Diabetes mellitus, with long-term current use of insulin Diarrhea End stage renal disease End-stage renal disease on hemodialysis Fever of unknown origin High cholesterol History of leg amputation Hypertension Microalbuminuria Mixed hyperlipidemia PAD (peripheral artery disease) Preoperative cardiovascular examination Surgical History History of eye surgery History of laminectomy History of surgery History of surgery on arm S/P bilateral BKA (below knee amputation) S/P CABG x 4 S/P unilateral BKA (below knee amputation) Family History Family History Father Myocardial infarction Mother No problems noted. Social History Social History Household Members: Children Housing: Apartment Do you presently have visiting nurse or other home services: Yes (nursing aid) Alcohol intake: unknown Patient Tobacco Use Status: Never used Tobacco e-Cigarette/Vaping Use: Never Used Second Hand Smoke Exposure: No Advance Directives: Yes Advance Directives on File: Yes Advance Directives Date on File: 06/15/21 service: No Current occupational status: retired and disabled Cognitive needs: Yes Hearing needs: No Vision needs: No Physical Exam ED Vital Signs: Vital Signs - 24 hr 04/23/22 15:26 04/23/22 17:55 Temperature 98.2 F 98.1 F Pulse Rate 82 80 Respiratory Rate 14 19 Blood Pressure 102/80 102/43 L Pulse Oximetry 100 100 Oxygen Delivery Method Room Air Room Air BMI result Body Mass Index 23.8 Vital signs have been reviewed as appeared to be correct. Blood pressure normal. Heart rate normal. Respiration rate normal. Temperature normal. Oxygen saturation normal. Appearance: Alert. Oriented X3. No acute distress. Head: Normal external exam. Normocephalic. Atraumatic. No Jorge signs noted. No raccoon eyes noted Eyes: PERRLA. EOMI. Conjunctiva and sclera normal. Eyelids normal. ENT: TM's Normal. Pharynx normal. Uvula midline. Moist mucous membranes. No trismus noted. No drooling noted. No muffled voice noted. Neck: Normal inspection. Neck supple. FROM. No adenopathy. Thyroid Normal. No meningeal signs. No neck mass noted. CVS: Normal heart rate and rhythm. Heart sound normal. No murmurs noted. Pulses normal throughout. Respiratory: No respiratory distress. Painless inspiration. Breath sounds normal. No wheezes/rales/rhonchi noted. Chest nontender. No accessory muscle usage noted or decreased air movement noted. Abdomen: Soft and nontender. Bowel sounds normal in all 4 quadrants. No distention noted. No organomegaly noted. No visible injury noted. Rectal exam: Black tarry stool guaiac positive. Back: No CVA tenderness. Full range of motion noted. Skin: Skin warm and dry. Normal skin color. Normal skin turgor. No rashes/lesions/lacerations noted. Extremities: Bilateral BKA stump appeared dry and clean and intact. Neuro: Oriented X 3. Cranial nerve exam: II-XII are grossly intact No motor deficit. No sensory deficit. Reflexes normal. Course Course Course Narrative: 76-year-old male with acute cholecystitis status post AZAEL- drain placed to the gallbladder, sent from dialysis for a concern of anemia and generalized weakness. 1. Reviewing patient's old chart patient at his baseline H&H, black tarry melena stool will admit for Protonix IV and further GI consultation. 2. CT abdomen pelvis confirmed placement of AZAEL drain with no active bleeding, the case also discussed with Dr. Sheikh who is okay to discharge the patient and he will follow up with him as an outpatient. 3. Electrolytes stable just had dialysis today. Medical Decision Making Differential Diagnosis Differential Diagnoses: The differential diagnosis associated with the presentation includes (Acute on chronic anemia, infection, bleeding, dislodge AZAEL drain.) Consult Healthcare Provider Management of the patient was discussed with: Poultice Machine Operator (Surgery (Dr. Sheikh)) Lab Data MDM Lab Attestation statement: I reviewed the patient's lab results. 04/23/22 17:44 04/23/22 17:44 Labs: Lab Results 04/23/22 04/23/22 Range/Units 17:44 17:44 WBC 7.7 (4.8-10.8) X10*3/uL RBC 2.41 L (4.60-5.80) X10*6/uL Hgb 7.8 L (14.0-18.0) g/dl Hct 24.9 L (42.0-52.0) % MCV 103.3 H (80.0-98.0) fL MCH 32.4 (27.0-33.0) pg MCHC 31.3 (31.0-36.0) g/dl RDW 18.1 H (11.0-16.0) % Plt Count 226 D (160-400) X10*3/uL MPV 11.2 (9.4-12.4) fL Immature Gran % (Auto) 0.5 H (0.0-0.4) % Neut % (Auto) 77.9 H (45-73) % Lymph % (Auto) 11.1 L (20-40) % [place] % (Auto) 5.2 (2-11) % Eos % (Auto) 4.3 H (0-4) % Baso % (Auto) 1.0 (0-2) % Lymph # (Auto) 0.9 L (1.2-4.9) X10*3/uL [place] # (Auto) 0.4 (0.1-1.2) X10*3/uL Eos # (Auto) 0.3 (0.0-0.4) X10*3/uL Baso # (Auto) 0.1 (0.0-0.2) X10*3/uL Abs Immat Gran (auto) 0.04 H (0.00-0.03) X10*3/uL Absolute Neuts (auto) 6.0 (2.0-8.3) x10*3/uL Absolute Nucleated RBC 0.000 (0.0-0.012) X10*3/uL Nucleated RBC % (auto) 0.0 (0.0-0.2) /100WBC Sodium 136 (135-145) mmol/L Potassium 3.6 D (3.3-5.1) mmol/L Chloride 100 (96-108) mmol/L Carbon Dioxide 24 (22-29) mmol/L Anion Gap 16 (12-20) BUN 31 H (9-16) mg/dL Creatinine 2.03 H (0.5-1.4) mg/dL Estim Creat Clear Calc 26.3 Estimated GFR 32 Random Glucose 123 H (60-115) mg/dL Calcium 8.2 L (8.4-10.2) mg/dL Total Bilirubin 0.6 (0.0-1.0) mg/dL Direct Bilirubin 0.3 (0.0-0.5) mg/dL AST 24 (5-37) U/L ALT 15 (0-40) U/L Alkaline Phosphatase 120 H (39-117) U/L Total Protein 5.6 L (6.5-8.0) g/dL Albumin 2.2 L (3.5-5.0) g/dL Lipase 23 (8-78) U/L Independent Interpretation I performed an independent interpretation of an: CT Scan (Abdomen:Cholecystostomy tube is seen within the decompressed gallbladder. The amount of pericholecystic inflammatory changes has improved from the 04/07/2022 study. ) Radiology Impression Discussion of test interpretation with radiology: I have reviewed the radiologist's reading. Chronic Conditions Patient?s care impacted by: Other (ESRD) Critical Care Time Critical Care Time Critical Care Time: Yes Total Critical Care Time: 60 Attestation: I spent 60 minutes providing critical care service to the patient, this including time spent at the bedside to evaluate the patient, reassess the patient, monitoring vital signs, review labs, and radiographic studies, counseling the patient/family, discussing the case with consultants, disposition the patient. Discharge Plan Discharge Clinical Impression: Anemia, ESRD (end stage renal disease) on dialysis, Cholecystitis with cholelithiasis, Melena Patient Disposition: Admitted As Inpatient Instructions: Anemia (ED) Prescriptions: No Action (DME) diabetic shoes 9 See Rx Instructions .Route .MEDSUPPLY Qty: 1 0RF Rx Instructions: As directed (DME) Gel mattress overlay Misc See Rx Instructions .Route Qty: 1 0RF Rx Instructions: As directed atorvastatin 40 mg tablet 40 mg PO BEDTIME 90 Days Qty: 90 1RF acetaminophen [Mapap Arthritis Pain] 650 mg tablet extended release 650 mg PO Q8H PRN (Reason: pain) 30 Days Qty: 90 1RF bumetanide 1 mg tablet 1 mg PO DAILY Qty: 30 6RF fenofibrate nanocrystallized 145 mg tablet 145 mg PO DAILY Qty: 30 6RF ferrous sulfate 325 mg (65 mg iron) tablet 325 mg PO TID 30 Days Qty: 90 6RF insulin glargine U-300 conc 300 unit/mL (3 mL) insulin pen 10 unit subcut BID Qty: 6 0RF (DME) FreeStyle Lite Strips Strip See Rx Instructions .Route Qty: 100 11RF Rx Instructions: Use 1 test strip TID carvedilol 25 mg tablet 1 tab PO BID aspirin 81 mg tablet,delayed release (DR/EC) 1 tab PO DAILY ursodiol 300 mg capsule 1 cap PO BID amlodipine 5 mg tablet 5 mg PO BEDTIME Virt-Caps 1 mg Capsule 1 cap PO DAILY tramadol 50 mg Tablet 50 mg PO DAILY PRN (Reason: Pain) ergocalciferol (vitamin D2) [Vitamin D2] 1,250 mcg (50,000 unit) capsule 1,250 mcg PO FR@1000 cefuroxime axetil 500 mg tablet 500 mg PO DAILY 7 Days Qty: 7 0RF metronidazole 500 mg tablet 500 mg PO Q8H 7 Days Qty: 21 0RF (DME) Blood Pressure Cuff Misc See Rx Instructions .Route Qty: 1 0RF Rx Instructions: As directed (DME) blood-glucose meter [FreeStyle Lite Meter] Kit See Rx Instructions .Route Qty: 1 0RF Rx Instructions: As directed (DME) lancets [FreeStyle Lancets] 28 gauge misc See Rx Instructions .Route Qty: 100 10RF Rx Instructions: Use 1 lancet once a day sevelamer carbonate 800 mg tablet 1,600 mg PO TIDWM (DME) blood pressure monitor Kit See Rx Instructions .Route Qty: 1 0RF Rx Instructions: As directed losartan 100 mg tablet 100 mg PO DAILY Referrals: Pool Sheikh MD [Physician] -
[2022-04-23 17:49] LABS: MANUAL DIFF FLAG NO
[2022-04-23 17:55] VITALS: BP 102/43; PULSE 80; RESP 19; TEMP 36.7; O2SAT 100
[2022-04-23 17:55] LABS: Basophils Absolute Auto 0.1 X10*3/uL (0.0-0.2); Eosinophils Absolute Auto 0.3 X10*3/uL (0.0-0.4); Eosinophils Percent Auto 4.3 % (0-4); Hematocrit 24.9 % (42.0-52.0); Hemoglobin 7.8 g/dl (14.0-18.0); Imm Gran Abs Auto 0.04 X10*3/uL (0.00-0.03); Imm Gran Pct Auto 0.5 % (0.0-0.4); Lymphocytes Absolute Auto 0.9 X10*3/uL (1.2-4.9); Lymphocytes Percent Auto 11.1 % (20-40); Mean Corpuscular HGB Conc 31.3 g/dl (31.0-36.0); Mean Corpuscular Hemoglobin 32.4 pg (27.0-33.0); Mean Corpuscular Volume 103.3 fL (80.0-98.0); Mean Platelet Volume 11.2 fL (9.4-12.4); Monocytes Absolute Auto 0.4 X10*3/uL (0.1-1.2); Monocytes Percent Auto 5.2 % (2-11); Neutrophils Percent Auto 77.9 % (45-73); Platelet Count 226 X10*3/uL (160-400); Red Blood Count 2.41 X10*6/uL (4.60-5.80); Red Cell Distribution Width 18.1 % (11.0-16.0); White Blood Count 7.7 X10*3/uL (4.8-10.8)
[2022-04-23 18:15] LABS: Alanine Aminotransferase 15 U/L (0-40); Albumin Level 2.2 g/dL (3.5-5.0); Alkaline Phosphatase 120 U/L (39-117); Anion Gap 16 (12-20); Aspartate Amino Transferase 24 U/L (5-37); Bilirubin Direct 0.3 mg/dL (0.0-0.5); Bilirubin Total 0.6 mg/dL (0.0-1.0); Blood Urea Nitrogen 31 mg/dL (9-16); Calcium 8.2 mg/dL (8.4-10.2); Carbon Dioxide 24 mmol/L (22-29); Chloride 100 mmol/L (96-108); Creatinine Clr Calc Pharmacy 26.3; Estimated Glomerular Filt Rate 32; Glucose Random 123 mg/dL (60-115); Lipase 23 U/L (8-78); Potassium 3.6 mmol/L (3.3-5.1); Sodium 136 mmol/L (135-145); Total Protein 5.6 g/dL (6.5-8.0)
[2022-04-23 19:50] VITALS: BP 118/48; PULSE 80; RESP 17; O2SAT 100
[2022-04-23 20:00] VITALS: BP 103/63; PULSE 69; RESP 15; O2SAT 95
[2022-04-23 20:00] LABS: OBS Int Ctl Valid YES; OBS1 POSITIVE (NEGATIVE)
[2022-04-23] MEDS: Pantoprazole Sodium 40 MG/10 ML VIAL IVPUSH (21:15)
--- NOTE | 2022-04-23 21:19 | PC.NURSE ---
this nurse attempted to place IV but was unable, 2nd nurse placed 22G IV right hand, pt medicated per provider order. pt resting quietly, denies any pain at this time, pt pending admission orders.
--- NOTE | 2022-04-23 21:37 | PC.NURSE ---
med rec complete.
[2022-04-23 22:07] VITALS: PULSE 82; RESP 15; O2SAT 99
--- NOTE | 2022-04-23 22:36 | P.HPHOSP_ITS ---
History of Present Illness Date of Service: 04/23/22 Chief Complaint: black stools 76-year-old male with past medical history of ESRD on dialysis MWF, diabetes, hyperlipidemia, status post bilateral BKA, anemia of chronic disease, comes to the hospital with complaints of low hemoglobin per dialysis as well as blood in Cholecystostomy bag. patient is [place]-speaking, history is obtained with the help of an in terpreter. patient is alert oriented x3, patient reports that he was sent to the hospital because at dialysis they noticed his hemoglobin was low, as well as his home nurse stated that he has blood in his cholecystostomy back. Patient also reports that he had a black stool yesterday. He reports that he had 1 episode of black stools. Today nonbloody. No melena today. Reports no shortness of breath, no dizziness. No abdominal pain nausea or vomiting, no diarrhea or constipation, no urinary symptoms and noTrouble with his lower extremity wounds. On arrival to the ED patient hemodynamically stable with no significant abnormal vitals Labs are significant for WBC count of 7.7, hemoglobin of 7.8, hematocrit of 24.9 which is around his baseline, potassium 3.6, labs otherwise unremarkable. Albumin of 2.2, stool occult blood positive abdomen pelvic CT shows cholecystostomy tube is seen within the decompressed gallbladder, the amount of pericholecystic inflammatory change has improved from 0 2/081112 study Review of Systems 2 Review of Systems: Yes all other systems are reviewed and are negative [facility] Medical History Anemia in chronic kidney disease Below-knee amputation of left lower extremity Below-knee amputation of right lower extremity with complication CVA (cerebral vascular accident) Diabetes Diabetes mellitus, with long-term current use of insulin Diarrhea End stage renal disease End-stage renal disease on hemodialysis Fever of unknown origin High cholesterol History of leg amputation Hypertension Microalbuminuria Mixed hyperlipidemia PAD (peripheral artery disease) Preoperative cardiovascular examination Family History Father Myocardial infarction Mother No problems noted. Surgical History History of eye surgery History of laminectomy History of surgery History of surgery on arm S/P bilateral BKA (below knee amputation) S/P CABG x 4 S/P unilateral BKA (below knee amputation) Social History Household Members: Children Housing: Apartment Do you presently have visiting nurse or other home services: Yes (nursing aid) Alcohol intake: unknown Patient Tobacco Use Status: Never used Tobacco e-Cigarette/Vaping Use: Never Used Second Hand Smoke Exposure: No Advance Directives: Yes Advance Directives on File: Yes Advance Directives Date on File: 06/15/21 service: No Current occupational status: retired and disabled Cognitive needs: Yes Hearing needs: No Vision needs: No Meds Allergies Allergy/AdvReac Type Severity Reaction Status Date / Time lisinopril Allergy Intermediate hyperkalemi Verified 04/23/22 15:18 a hydralazine Allergy Unknown Verified 04/23/22 15:18 hydrochlorothiazide Allergy Unknown Verified 04/23/22 15:18 canagliflozin [Invokana] AdvReac Mild back pain Verified 04/23/22 15:18 lidocaine [From LIDOPRIL] AdvReac Mild Cough Verified 04/23/22 15:18 prilocaine [From LIDOPRIL] AdvReac Mild Cough Verified 04/23/22 15:18 Active Medications: Current Medications Acetaminophen (Acetaminophen 325 Mg Tablet) 650 mg PO Q6H PRN PRN Reason: Pain, Mild (Pain Scale 1-3) Ondansetron HCl (Ondansetron Hcl 4 Mg/2 Ml Vial) 4 mg IVPUSH Q8H PRN PRN Reason: Nausea and Vomiting Sodium Chloride (0.9 % Sodium Chloride Flush 3 Ml Syringe) 3 ml [facility] Medications Medication Instructions Recorded Confirmed Last Taken Type sevelamer carbonate 800 mg tablet 1,600 mg PO TIDWM 01/22/20 04/23/22 03/30/22 History amlodipine 5 mg tablet 5 mg PO BEDTIME 06/01/21 04/23/22 03/30/22 History aspirin 81 mg tablet,delayed 1 tab PO DAILY 06/01/21 04/23/22 03/30/22 History release carvedilol 25 mg tablet 1 tab PO BID 06/01/21 04/23/22 03/30/22 History ursodiol 300 mg capsule 1 cap PO BID 06/01/21 04/23/22 03/30/22 History losartan 100 mg tablet 100 mg PO DAILY 01/23/22 04/23/22 03/30/22 History vitamin B complex and vitamin C 1 cap PO DAILY 03/30/22 04/23/22 03/30/22 History no.20-folic acid 1 mg capsule (Virt-Caps) Physical Exam Vital Signs and Narrative: Vital Signs: Last Vital Signs Temp 98.1 F 04/23/22 17:55 Pulse 82 04/23/22 22:07 Resp 15 04/23/22 22:07 BP 103/63 04/23/22 20:00 Pulse Ox 99 04/23/22 22:07 O2 Del Method 04/23/22 22:07 O2 Flow Rate 2 04/23/22 22:07 BMI result Body Mass Index 23.8 Const: General: cooperative and no acute distress Orientation/consciousness: patient oriented x3 Eyes: General: appearance normal, both eyes and all related structures Resp: Effort & Inspection: normal respiratory effort Auscultation: clear to auscultation bilaterally Cardio: Rate: regular rate Rhythm: regular rhythm GI: Other: abdomen is soft, nontender Palpation (GI): Soft to palpation Auscultation: normal bowel sounds Skin: General skin exam: no rashes or lesions noted Neuro: General: patient oriented x3 Cognition (Neuro): normal cognition Extrem: Other: bilateral below-knee amputation, dressing clean, nontender General: Yes no pedal edema Results Labs 04/23/22 17:44 04/23/22 17:44 Labs: Laboratory Results - last 24 hr 04/23/22 04/23/22 04/23/22 17:44 17:44 19:52 MCV 103.3 H MCH 32.4 MCHC 31.3 RDW 18.1 H Plt Count 226 D MPV 11.2 Immature Gran % (Auto) 0.5 H Neut % (Auto) 77.9 H Lymph % (Auto) 11.1 L [place] % (Auto) 5.2 Eos % (Auto) 4.3 H Baso % (Auto) 1.0 Lymph # (Auto) 0.9 L [place] # (Auto) 0.4 Eos # (Auto) 0.3 Baso # (Auto) 0.1 Abs Immat Gran (auto) 0.04 H Absolute Neuts (auto) 6.0 Absolute Nucleated RBC 0.000 Nucleated RBC % (auto) 0.0 Anion Gap 16 Estim Creat Clear Calc 26.3 Estimated GFR 32 Random Glucose 123 H Calcium 8.2 L Total Bilirubin 0.6 Direct Bilirubin 0.3 AST 24 ALT 15 Alkaline Phosphatase 120 H Total Protein 5.6 L Albumin 2.2 L Lipase 23 Stool Occult Blood POSITIVE Imaging Radiologist's Impressions: Impressions Abdomen/Pelvis CT 04/23/22 17:02 IMPRESSION: Cholecystostomy tube is seen within the decompressed gallbladder. The amount of pericholecystic inflammatory changes has improved from the 04/07/2022 study. Assessment and Plan (1) Melena: Status: Acute (2) Anemia of chronic disease: Status: Acute Plan 76-year-old male with past medical history of ESRD on dialysis, recently diagnosed cholecystitis status post IR cholecystostomy bag presents to the hospital with complaints of melena and low hemoglobin # melena - no significant drop in hemoglobin - Hemoccult-positive - will consult GI - follow H&H # blood in cholecystostomy bag - there is evidence of blood, no evidence of acute infection - will consult General surgery # anemia of chronic disease - H&H stable - asymptomatic - follow CBC # ESRD - completed dialysis today Saturday - if patient remains inpatient, will consult Nephrology for inpatient dialysis # diabetes - continue home insulin - will add low-dose sliding scale insulin - diabetic diet # hypertension - stable - continue amlodipine DVT prophylaxis: SCDs Time Spent With Patient Time: Total time managing care of this patient today ____ minutes. Quality Stroke Does the patient have a stroke diagnosis?: No VTE Prior VTE?: No VTE Risk Level:: Medical - moderate - high VTE Device Contraindication: N/A - Device Ordered VTE Drug Contraindication: Treatment Not Indicated
[2022-04-24 03:13] LABS: COVID-19 Test Positive (Negative); IDNOW Serial# 16C4AD1C
[2022-04-24] MEDS: 0.9 % Sodium Chloride Flush 3 ML SYRINGE IVFLUSH ×4 (03:48→21:52)
[2022-04-24 06:38] LABS: MANUAL DIFF FLAG NO
[2022-04-24 06:52] LABS: Basophils Absolute Auto 0.1 X10*3/uL (0.0-0.2); Eosinophils Absolute Auto 0.3 X10*3/uL (0.0-0.4); Eosinophils Percent Auto 3.6 % (0-4); Hematocrit 24.6 % (42.0-52.0); Hemoglobin 7.7 g/dl (14.0-18.0); Imm Gran Abs Auto 0.05 X10*3/uL (0.00-0.03); Imm Gran Pct Auto 0.6 % (0.0-0.4); Lymphocytes Absolute Auto 0.8 X10*3/uL (1.2-4.9); Lymphocytes Percent Auto 9.4 % (20-40); Mean Corpuscular HGB Conc 31.3 g/dl (31.0-36.0); Mean Corpuscular Hemoglobin 32.4 pg (27.0-33.0); Mean Corpuscular Volume 103.4 fL (80.0-98.0); Mean Platelet Volume 11.6 fL (9.4-12.4); Monocytes Absolute Auto 0.4 X10*3/uL (0.1-1.2); Monocytes Percent Auto 5.1 % (2-11); Neutrophils Absolute Auto 6.4 x10*3/uL (2.0-8.3); Neutrophils Percent Auto 80.3 % (45-73); Platelet Count 248 X10*3/uL (160-400); Red Blood Count 2.38 X10*6/uL (4.60-5.80); Red Cell Distribution Width 18.6 % (11.0-16.0)
[2022-04-24 07:05] LABS: Anion Gap 15 (12-20); Blood Urea Nitrogen 39 mg/dL (9-16); Calcium 8.6 mg/dL (8.4-10.2); Carbon Dioxide 29 mmol/L (22-29); Chloride 97 mmol/L (96-108); Creatinine Clr Calc Pharmacy 19.8; Estimated Glomerular Filt Rate 23; Glucose Random 100 mg/dL (60-115); Potassium 3.6 mmol/L (3.3-5.1); Sodium 137 mmol/L (135-145)
--- NOTE | 2022-04-24 07:31 | PHA.MEDREC ---
Pharmacy Consult ? Medication Reconciliation Pharmacy has completed the medication reconciliation. Pharmacy reviewed med rec completed by nursing.
[2022-04-24 07:46] VITALS: BP 121/34; PULSE 72; RESP 13; TEMP 36.5; O2SAT 100
--- NOTE | 2022-04-24 08:11 | PM.CNGS ---
History of Present Illness Consult details Consult date: 04/24/22 Narrative: 76-year-old male patient with history of acute cholecystitis, status post cholecystostomy tube placement presenting to the emergency department for possible drop in hemoglobin and hematocrit and blood in the cholecystostomy tube. Patient has multiple medical problems including end-stage renal disease on hemodialysis 3 times weekly, peripheral vascular disease S/P BKA, anemia and hyperlipidemia. He presented to the emergency department was noted to have a hemoglobin of 7.8 which was felt to be close to his baseline. Surgical consultation was requested for management of the cholecystostomy tube and evaluation of bloody fluid. Review of Systems Review of Systems: Yes all other systems are reviewed and are negative Neurologic: Reports confusion Psychiatric: Psychiatric: Reports confusion PMFSH Past Medical History Medical History Anemia in chronic kidney disease Below-knee amputation of left lower extremity Below-knee amputation of right lower extremity with complication CVA (cerebral vascular accident) Diabetes Diabetes mellitus, with long-term current use of insulin Diarrhea End stage renal disease End-stage renal disease on hemodialysis Fever of unknown origin High cholesterol History of leg amputation Hypertension Microalbuminuria Mixed hyperlipidemia PAD (peripheral artery disease) Preoperative cardiovascular examination Family History Family History Father Myocardial infarction Mother No problems noted. Surgical History Surgical History History of eye surgery History of laminectomy History of surgery History of surgery on arm S/P bilateral BKA (below knee amputation) S/P CABG x 4 S/P unilateral BKA (below knee amputation) Social History Social History Household Members: Children Housing: Apartment Do you presently have visiting nurse or other home services: Yes (nursing aid) Alcohol intake: unknown Patient Tobacco Use Status: Never used Tobacco e-Cigarette/Vaping Use: Never Used Second Hand Smoke Exposure: No Advance Directives Date on File: 06/15/21 service: No Current occupational status: retired and disabled Cognitive needs: Yes Hearing needs: No Vision needs: No Meds Allergies Allergy/AdvReac Type Severity Reaction Status Date / Time lisinopril Allergy Intermediate hyperkalemi Verified 04/23/22 15:18 a hydralazine Allergy Unknown Verified 04/23/22 15:18 hydrochlorothiazide Allergy Unknown Verified 04/23/22 15:18 canagliflozin [Invokana] AdvReac Mild back pain Verified 04/23/22 15:18 lidocaine [From LIDOPRIL] AdvReac Mild Cough Verified 04/23/22 15:18 prilocaine [From LIDOPRIL] AdvReac Mild Cough Verified 04/23/22 15:18 Active Medications: Current Medications Acetaminophen (Acetaminophen 325 Mg Tablet) 650 mg PO Q6H PRN PRN Reason: Pain, Mild (Pain Scale 1-3) Amlodipine Besylate (Amlodipine Besylate 5 Mg Tablet) 5 mg PO BEDTIME [facility]; Protocol Atorvastatin Calcium (Atorvastatin Calcium 40 Mg Tablet) 40 mg PO BEDTIME [facility] Bumetanide (Bumetanide 1 Mg Tablet) 1 mg PO DAILY [facility]; Protocol Carvedilol (Carvedilol 25 Mg Tablet) 25 mg PO BID [facility]; Protocol Ferrous Sulfate (Ferrous Sulfate 324 Mg Tablet.Dr) 324 mg PO TID [facility] Losartan Potassium (Losartan Potassium 50 Mg Tablet) 100 mg PO DAILY [facility]; Protocol Multivitamins/Vitamin C (Multivitamin Tablet) 1 tab PO DAILY [facility] Non-Formulary Medication (Fenofibrate Nanocrystallized) 145 mg PO DAILY [facility] Non-Formulary Medication (Insulin Glargine U-300 Conc) 10 unit SUBCUT BID [facility] Ondansetron HCl (Ondansetron Hcl 4 Mg/2 Ml Vial) 4 mg IVPUSH Q8H PRN PRN Reason: Nausea and Vomiting Sevelamer Carbonate (Sevelamer Carbonate Tablet 800 Mg Tablet) 1,600 mg PO TIDWM [facility] Sodium Chloride (0.9 % Sodium Chloride Flush 3 Ml Syringe) 3 ml IVFLUSH QSHIFT [facility] Last Admin: 04/24/22 03:48 Dose: 3 ml Ursodiol (Ursodiol 300 Mg Capsule) 300 mg PO BID [facility] Home Medications Medication Instructions Recorded Confirmed Last Taken Type sevelamer carbonate 800 mg tablet 1,600 mg PO TIDWM 01/22/20 04/23/22 03/30/22 History amlodipine 5 mg tablet 5 mg PO BEDTIME 06/01/21 04/23/22 03/30/22 History aspirin 81 mg tablet,delayed 1 tab PO DAILY 06/01/21 04/23/22 03/30/22 History release carvedilol 25 mg tablet 1 tab PO BID 06/01/21 04/23/22 03/30/22 History ursodiol 300 mg capsule 1 cap PO BID 06/01/21 04/23/22 03/30/22 History losartan 100 mg tablet 100 mg PO DAILY 01/23/22 04/23/22 03/30/22 History vitamin B complex and vitamin C 1 cap PO DAILY 03/30/22 04/23/22 03/30/22 History no.20-folic acid 1 mg capsule (Virt-Caps) Physical Exam Vital Signs: Vital Signs: Last Vital Signs Temp 97.7 F 04/24/22 07:46 Pulse 72 04/24/22 07:46 Resp 13 04/24/22 07:46 BP 121/34 L 04/24/22 07:46 Pulse Ox 100 04/24/22 07:46 O2 Del Method 04/24/22 07:46 O2 Flow Rate 2 04/24/22 07:46 BMI result Body Mass Index 23.8 Const: General: confusion Nutritional Appearance: well nourished Orientation/consciousness: confusion Limitations: physical limitations HEENT: Head: Yes normocephalic and Yes atraumatic Resp: Effort & Inspection: normal respiratory effort, no audible wheezes, no cough and no respiratory distress GI: Other: Cholecystostomy tube intact without any active bleeding noted. Palpation (GI): Soft to palpation, nontender and no guarding Neuro: General: confusion Results Labs 04/24/22 06:02 04/24/22 06:02 Labs: Abnormal lab results 04/23/22 04/23/22 04/24/22 Range/Units 17:44 17:44 02:54 RBC 2.41 L (4.60-5.80) X10*6/uL Hgb 7.8 L (14.0-18.0) g/dl Hct 24.9 L (42.0-52.0) % MCV 103.3 H (80.0-98.0) fL RDW 18.1 H (11.0-16.0) % Immature Gran % (Auto) 0.5 H (0.0-0.4) % Neut % (Auto) 77.9 H (45-73) % Lymph % (Auto) 11.1 L (20-40) % Eos % (Auto) 4.3 H (0-4) % Lymph # (Auto) 0.9 L (1.2-4.9) X10*3/uL Abs Immat Gran (auto) 0.04 H (0.00-0.03) X10*3/uL BUN 31 H (9-16) mg/dL Creatinine 2.03 H (0.5-1.4) mg/dL Random Glucose 123 H (60-115) mg/dL Calcium 8.2 L (8.4-10.2) mg/dL Alkaline Phosphatase 120 H (39-117) U/L Total Protein 5.6 L (6.5-8.0) g/dL Albumin 2.2 L (3.5-5.0) g/dL COVID-19 ([facility]ANE) Positive A (Negative) 04/24/22 04/24/22 Range/Units 06:02 06:02 RBC 2.38 L (4.60-5.80) X10*6/uL Hgb 7.7 L (14.0-18.0) g/dl Hct 24.6 L (42.0-52.0) % MCV 103.4 H (80.0-98.0) fL RDW 18.6 H (11.0-16.0) % Immature Gran % (Auto) 0.6 H (0.0-0.4) % Neut % (Auto) 80.3 H (45-73) % Lymph % (Auto) 9.4 L (20-40) % Eos % (Auto) (0-4) % Lymph # (Auto) 0.8 L (1.2-4.9) X10*3/uL Abs Immat Gran (auto) 0.05 H (0.00-0.03) X10*3/uL BUN 39 H (9-16) mg/dL Creatinine 2.69 H (0.5-1.4) mg/dL Random Glucose (60-115) mg/dL Calcium (8.4-10.2) mg/dL Alkaline Phosphatase (39-117) U/L Total Protein (6.5-8.0) g/dL Albumin (3.5-5.0) g/dL COVID-19 (ZANE) (Negative) Short CBC 04/23/22 04/24/22 Range/Units 17:44 06:02 WBC 7.7 8.0 (4.8-10.8) X10*3/uL Hgb 7.8 L 7.7 L (14.0-18.0) g/dl Hct 24.9 L 24.6 L (42.0-52.0) % Plt Count 226 D 248 (160-400) X10*3/uL BMP 04/23/22 04/24/22 17:44 06:02 Sodium 136 137 Potassium 3.6 D 3.6 Chloride 100 97 Carbon Dioxide 24 29 BUN 31 H 39 H Creatinine 2.03 H 2.69 H Calcium 8.2 L 8.6 Liver Function 04/23/22 Range/Units 17:44 Total Bilirubin 0.6 (0.0-1.0) mg/dL Direct Bilirubin 0.3 (0.0-0.5) mg/dL AST 24 (5-37) U/L ALT 15 (0-40) U/L Alkaline Phosphatase 120 H (39-117) U/L Albumin 2.2 L (3.5-5.0) g/dL All other labs normal. Imaging Abdomen CT scan report/results: image reviewed (Cholecystostomy tube well within a decompressed gallbladder, decreased inflammation) CT scan - pelvis: image reviewed Assessment and Plan (1) Cholecystitis with cholelithiasis: Status: Acute (2) ESRD (end stage renal disease) on dialysis: Status: Acute (3) Anemia of chronic disease: Status: Acute Plan 76-year-old male with multiple medical problems previously admitted for acute cholecystitis due to cholelithiasis. Patient felt to be a poor risk for surgery therefore cholecystostomy tube placed. Patient returns to emergency department with possible evidence of bleeding per cholecystostomy tube. Patient's blood count has been fairly stable however he was found to have heme-positive stool. Examination today reveals no bleeding within the tube. CT reveals the gallbladder to be very well decompressed with no evidence of ongoing cholecystitis. We may be able to clamp the cholecystostomy tube and monitor for ongoing abdominal symptoms once workup for heme-positive stool in is complete. I will monitor the patient during his admission. Time Spent With Patient Time: Total time managing care of this patient today ____ minutes. Procedures Date of Service Date of Service: 04/24/22
--- NOTE | 2022-04-24 09:06 | P.CNGI_ITS ---
History of Present Illness Data of Consult Service Date: 04/24/22 Requesting physician: Janey Packer Primary Care Provider: Unknown Physician HPI Reason for consult: anemia 76-year-old male with past medical history of? ESRD on dialysis MWF, diabetes, hyperlipidemia, status post bilateral BKA, anemia of chronic disease, who was recently admitted to the hospital last month for acute cholecystitis which was managed with cholecystostomy tube given clinical status and underlying comorbidities who was brought to the hospital from his dialysis unit due to low hemoglobin as well as blood noted in his cholecystostomy tubing. Patient was seen at bedside in the presence of his daughter. He reports no abdominal pain, nausea, vomiting. Does report diarrhea, that he has had for a few days. Does not report any chest pain, shortness of breath, palpitations or lightheadedness. He remains hemodynamically stable. Labs are significant for hemoglobin of 7.8 which is roughly at his previous baseline with a white MCV. Normal white count but with neutrophilic shift. Chem 7 normal except for ESRD status. He was also found to be COVID 19 positive on admission. He underwent a CT abdomen and pelvis without contrast that shows improvement previous cholecystitis with a decompressed gallbladder. Review of Systems Review of Systems: Yes all other systems are reviewed and are negative PMFSH Past Medical History Medical History Anemia in chronic kidney disease Below-knee amputation of left lower extremity Below-knee amputation of right lower extremity with complication CVA (cerebral vascular accident) Diabetes Diabetes mellitus, with long-term current use of insulin Diarrhea End stage renal disease End-stage renal disease on hemodialysis Fever of unknown origin High cholesterol History of leg amputation Hypertension Microalbuminuria Mixed hyperlipidemia PAD (peripheral artery disease) Preoperative cardiovascular examination Family History Family History Father Myocardial infarction Mother No problems noted. Surgical History Surgical History History of eye surgery History of laminectomy History of surgery History of surgery on arm S/P bilateral BKA (below knee amputation) S/P CABG x 4 S/P unilateral BKA (below knee amputation) Social History Social History Household Members: Children Housing: Apartment Do you presently have visiting nurse or other home services: Yes (nursing aid) Alcohol intake: unknown Patient Tobacco Use Status: Never used Tobacco e-Cigarette/Vaping Use: Never Used Second Hand Smoke Exposure: No Advance Directives Date on File: 06/15/21 service: No Current occupational status: retired and disabled Cognitive needs: Yes Hearing needs: No Vision needs: No Meds Allergies Allergy/AdvReac Type Severity Reaction Status Date / Time lisinopril Allergy Intermediate hyperkalemi Verified 04/23/22 15:18 a hydralazine Allergy Unknown Verified 04/23/22 15:18 hydrochlorothiazide Allergy Unknown Verified 04/23/22 15:18 canagliflozin [Invokana] AdvReac Mild back pain Verified 04/23/22 15:18 lidocaine [From LIDOPRIL] AdvReac Mild Cough Verified 04/23/22 15:18 prilocaine [From LIDOPRIL] AdvReac Mild Cough Verified 04/23/22 15:18 Active Medications: Current Medications Acetaminophen (Acetaminophen 325 Mg Tablet) 650 mg PO Q6H PRN PRN Reason: Pain, Mild (Pain Scale 1-3) Amlodipine Besylate (Amlodipine Besylate 5 Mg Tablet) 5 mg PO BEDTIME [facility]; Protocol Atorvastatin Calcium (Atorvastatin Calcium 40 Mg Tablet) 40 mg PO BEDTIME [facility] Bumetanide (Bumetanide 1 Mg Tablet) 1 mg PO DAILY [facility]; Protocol Carvedilol (Carvedilol 25 Mg Tablet) 25 mg PO BID [facility]; Protocol Ferrous Sulfate (Ferrous Sulfate 324 Mg Tablet.Dr) 324 mg PO TID [facility] Losartan Potassium (Losartan Potassium 50 Mg Tablet) 100 mg PO DAILY [facility]; Protocol Multivitamins/Vitamin C (Multivitamin Tablet) 1 tab PO DAILY [facility] Non-Formulary Medication (Fenofibrate Nanocrystallized) 145 mg PO DAILY [facility] Non-Formulary Medication (Insulin Glargine U-300 Conc) 10 unit SUBCUT BID [facility] Ondansetron HCl (Ondansetron Hcl 4 Mg/2 Ml Vial) 4 mg IVPUSH Q8H PRN PRN Reason: Nausea and Vomiting Sevelamer Carbonate (Sevelamer Carbonate Tablet 800 Mg Tablet) 1,600 mg PO TIDWM [facility] Sodium Chloride (0.9 % Sodium Chloride Flush 3 Ml Syringe) 3 ml IVFLUSH QSHIFT [facility] Last Admin: 04/24/22 03:48 Dose: 3 ml Ursodiol (Ursodiol 300 Mg Capsule) 300 mg PO BID [facility] Home Medications Medication Instructions Recorded Confirmed Last Taken Type sevelamer carbonate 800 mg tablet 1,600 mg PO TIDWM 01/22/20 04/23/22 03/30/22 History amlodipine 5 mg tablet 5 mg PO BEDTIME 06/01/21 04/23/22 03/30/22 History aspirin 81 mg tablet,delayed 1 tab PO DAILY 06/01/21 04/23/22 03/30/22 History release carvedilol 25 mg tablet 1 tab PO BID 06/01/21 04/23/22 03/30/22 History ursodiol 300 mg capsule 1 cap PO BID 06/01/21 04/23/22 03/30/22 History losartan 100 mg tablet 100 mg PO DAILY 01/23/22 04/23/22 03/30/22 History vitamin B complex and vitamin C 1 cap PO DAILY 03/30/22 04/23/22 03/30/22 History no.20-folic acid 1 mg capsule (Virt-Caps) Physical Exam Vital Signs: Vital Signs: Last Vital Signs Temp 97.7 F 04/24/22 07:46 Pulse 72 04/24/22 07:46 Resp 13 04/24/22 07:46 BP 121/34 L 04/24/22 07:46 Pulse Ox 100 04/24/22 07:46 O2 Del Method 04/24/22 07:46 O2 Flow Rate 2 04/24/22 07:46 BMI result Body Mass Index 23.8 Gen appear: Elderly male, pale appearing HEENT: no icterus, no cervical lymphadenopathy Chest: No overt resp distress CVS: S1/S2, regular Abd: soft, nontender, nondistended, C tube with minimal reddish tinge but bulb has no blood, has green bile. Rectal: grade II-III pressure wound noted at the coccyx, loose black stool noted on underwear and therefore digital exam deferred. Psych: Stable affect, answering questions appropriately Neuro: A/Ox3 Ext: peripheral edema Results Labs 04/24/22 06:02 04/24/22 06:02 Labs: Short CBC 04/23/22 04/24/22 Range/Units 17:44 06:02 WBC 7.7 8.0 (4.8-10.8) X10*3/uL Hgb 7.8 L 7.7 L (14.0-18.0) g/dl Hct 24.9 L 24.6 L (42.0-52.0) % Plt Count 226 D 248 (160-400) X10*3/uL BMP 04/23/22 04/24/22 17:44 06:02 Sodium 136 137 Potassium 3.6 D 3.6 Chloride 100 97 Carbon Dioxide 24 29 BUN 31 H 39 H Creatinine 2.03 H 2.69 H Calcium 8.2 L 8.6 Liver Function 04/23/22 Range/Units 17:44 Total Bilirubin 0.6 (0.0-1.0) mg/dL Direct Bilirubin 0.3 (0.0-0.5) mg/dL AST 24 (5-37) U/L ALT 15 (0-40) U/L Alkaline Phosphatase 120 H (39-117) U/L Albumin 2.2 L (3.5-5.0) g/dL Assessment and Plan (1) Melena: Status: Acute (2) Anemia of chronic disease: Status: Acute (3) ESRD (end stage renal disease) on dialysis: Status: Acute (4) Pressure sore of lower back: Status: Acute Plan Has gross melena on exam. Reassuringly, blood counts have remained at baseline and patient has not required a blood transfusion. Differentials include PUD, gastritis/duodenitis, hemobilia specially given the reddish tinge seen in the tubing today. Plan: -EGD tentatively planned for tomorrow -can have clears today NPO after midnight -please maintain 2 peripheral IV access at all times -active type and screen and transfuse for hemoglobin less than 7 -start Protonix IV 40mg b.i.d. -if patient starts putting out gross blood in the cholecystostomy tubing, please obtain a CT abdomen pelvis angio jessenia Patient was also noted to have pressure ulcers on exam. Recommend wound care consultation. Thank you for allowing me to participate in his care. Please do not hesitate to reach out for any questions or concerns. Time Spent With Patient Time: Total time managing care of this patient today ____ minutes. Procedures Date of Service Date of Service: 04/24/22
[2022-04-24] MEDS: Losartan Potassium 50 MG TABLET 100 MG PO (09:09)
[2022-04-24] MEDS: Sevelamer Carbonate Tablet 800 MG TABLET 1600 MG PO ×2 (09:09→16:37)
[2022-04-24] MEDS: carvediloL 25 MG TABLET PO (09:10)
[2022-04-24] MEDS: Bumetanide 1 MG TABLET PO (09:10)
[2022-04-24] MEDS: Ferrous Sulfate 324 MG TABLET.DR PO ×3 (09:10→21:52)
[2022-04-24] MEDS: UrsodioL 300 MG CAPSULE PO ×2 (09:11→21:52)
[2022-04-24] MEDS: Multivitamin TABLET 1 TAB PO (09:17)
--- NOTE | 2022-04-24 09:31 | PC.NURSE ---
Pt is alert/oriented, mongolian speaking primarily. Skin pale and mildy jaundiced. Pt noted with left sided AVF, +bruit/thrill, bandage in place. AZAEL drain in place to right side of abd, emptied for approx 50ml of dark red drainage. Pt denies pain to site. A fib on tele. Breathing even/unlabored. sat 98% on 2lpm. Meds given as charted. Repositioned to left side for comfort. B/L BKA noted. Dressing to left BKA changed. Wound noted with slough and moderate amount of serosang drainage. Edges not approximated. New dcd applied and wrapped.
[2022-04-24 11:51] VITALS: BP 138/51; PULSE 76; RESP 16; TEMP 36.4; O2SAT 100
--- NOTE | 2022-04-24 14:48 | MHC.CM.PN ---
RICHAR DELIVERED. CM SPOKE WITH PT AND HCP/DAUGHTER VIA TELEPHONE/EXPLAINED RIGHTS. WHITE COPY TO CHART, YELLOW COPY TO CHART. PT LIVES WITH [employer] IN AN [place]T. HAS 51 HOURS WKLY/ SOME OVERNIGHT HOURS. RETURN REFERRAL SENT TO [facility] FOR SN SERVICES. PT ATTENDS DIALYSIS -- AND PER DAUGHTER, [facility]ED [facility]. PT REQUIRES ASSIST WITH CARE AND IS ESSENTIALLY BEDBOUND. +HCP ON FILE PER DAUGHTER JAMES. +COVID VAX X [address] LOMAS AT [facility] [place]: HOME TO [facility]UME [employer]/[facility]. WILL NEED BLS TRANSPORT HOME. CM WILL CONTINUE TO FOLLOW.
[2022-04-24 15:44] VITALS: BP 114/49; PULSE 77; RESP 20; TEMP 36.1; O2SAT 100
--- NOTE | 2022-04-24 17:12 | HO.PM.IMPN ---
Subjective Subjective Date of Service: 04/24/22 Interval History: esrd ,? blood in Cholecystostomy bag Review of Systems Denies any chest pain or shortness of breath or abdominal pain or fever chills Physical Exam Vital Signs: Vital Signs: Last Vital Signs Temp 96.9 F 04/24/22 15:44 Pulse 77 04/24/22 15:44 Resp 20 04/24/22 15:44 BP 114/49 L 04/24/22 15:44 Pulse Ox 100 04/24/22 15:44 O2 Del Method 04/24/22 15:44 O2 Flow Rate 2 04/24/22 15:44 BMI result Body Mass Index 23.8 Appearance: Alert.? Oriented X3.? not in distress.? cvs: [id number], [id number] . res: clear to auscultation ,no rhonchii or wheezing abd: no rebound or guarding ,nt, bs present. has cholecystomy tube draining -very little drak brown fluid ext pulses present , no cyanosis . neuro: axo3 , nonfocal. Objective Data Active Medications Acetaminophen (Acetaminophen 325 Mg Tablet) 650 mg PO Q6H PRN PRN Reason: Pain, Mild (Pain Scale 1-3) Amlodipine Besylate (Amlodipine Besylate 5 Mg Tablet) 5 mg PO BEDTIME [facility]; Protocol Atorvastatin Calcium (Atorvastatin Calcium 40 Mg Tablet) 40 mg PO BEDTIME [facility] Bumetanide (Bumetanide 1 Mg Tablet) 1 mg PO DAILY [facility]; Protocol Last Admin: 04/24/22 09:10 Dose: 1 mg Documented By: DONNIE Carvedilol (Carvedilol 25 Mg Tablet) 25 mg PO BID [facility]; Protocol Last Admin: 04/24/22 09:10 Dose: 25 mg Documented By: DONNIE Ferrous Sulfate (Ferrous Sulfate 324 Mg Tablet.) 324 mg PO TID [facility] Last Admin: 04/24/22 16:37 Dose: 324 mg Documented By: KARLY Losartan Potassium (Losartan Potassium 50 Mg Tablet) 100 mg PO DAILY [facility]; Protocol Last Admin: 04/24/22 09:09 Dose: 100 mg Documented By: DONNIE Multivitamins/Vitamin C (Multivitamin Tablet) 1 tab PO DAILY [facility] Last Admin: 04/24/22 09:17 Dose: 1 tab Documented By: DONNIE Non-Formulary Medication (Fenofibrate Nanocrystallized) 145 mg PO DAILY [facility] Non-Formulary Medication (Insulin Glargine U-300 Conc) 10 unit SUBCUT BID [facility] Ondansetron HCl (Ondansetron Hcl 4 Mg/2 Ml Vial) 4 mg IVPUSH Q8H PRN PRN Reason: Nausea and Vomiting Sevelamer Carbonate (Sevelamer Carbonate Tablet 800 Mg Tablet) 1,600 mg PO TIDWM [facility] Last Admin: 04/24/22 16:37 Dose: 1,600 mg Documented By: KARLY Sodium Chloride (0.9 % Sodium Chloride Flush 3 Ml Syringe) 3 ml IVFLUSH QSHIFT [facility] Last Admin: 04/24/22 16:37 Dose: 3 ml Documented By: KARLY Sodium Hypochlorite (Sodium Hypochlorite 0.125% 473 Ml Solution) 1 appl TOPICAL DAILY [facility] Ursodiol (Ursodiol 300 Mg Capsule) 300 mg PO BID [facility] Last Admin: 04/24/22 09:11 Dose: 300 mg Documented By: DONNIE Labs 04/24/22 06:02 04/24/22 06:02 Labs: Laboratory Results - last 24 hr 04/23/22 04/23/22 04/23/22 17:44 17:44 19:52 MCV 103.3 H MCH 32.4 MCHC 31.3 RDW 18.1 H Plt Count 226 D MPV 11.2 Immature Gran % (Auto) 0.5 H Neut % (Auto) 77.9 H Lymph % (Auto) 11.1 L [place] % (Auto) 5.2 Eos % (Auto) 4.3 H Baso % (Auto) 1.0 Lymph # (Auto) 0.9 L [place] # (Auto) 0.4 Eos # (Auto) 0.3 Baso # (Auto) 0.1 Abs Immat Gran (auto) 0.04 H Absolute Neuts (auto) 6.0 Absolute Nucleated RBC 0.000 Nucleated RBC % (auto) 0.0 Anion Gap 16 Estim Creat Clear Calc 26.3 Estimated GFR 32 Random Glucose 123 H Calcium 8.2 L Total Bilirubin 0.6 Direct Bilirubin 0.3 AST 24 ALT 15 Alkaline Phosphatase 120 H Total Protein 5.6 L Albumin 2.2 L Lipase 23 Stool Occult Blood POSITIVE COVID-19 ([facility]) COVID-19 Clin Com 0204/24/22 04/24/22 02:54 06:02 06:02 MCV 103.4 H MCH 32.4 MCHC 31.3 RDW 18.6 H Plt Count 248 MPV 11.6 Immature Gran % (Auto) 0.6 H Neut % (Auto) 80.3 H Lymph % (Auto) 9.4 L [place] % (Auto) 5.1 Eos % (Auto) 3.6 Baso % (Auto) 1.0 Lymph # (Auto) 0.8 L [place] # (Auto) 0.4 Eos # (Auto) 0.3 Baso # (Auto) 0.1 Abs Immat Gran (auto) 0.05 H Absolute Neuts (auto) 6.4 Absolute Nucleated RBC 0.000 Nucleated RBC % (auto) 0.0 Anion Gap 15 Estim Creat Clear Calc 19.8 Estimated GFR 23 Random Glucose 100 Calcium 8.6 Total Bilirubin Direct Bilirubin AST ALT Alkaline Phosphatase Total Protein Albumin Lipase Stool Occult Blood COVID-19 ([facility]) Positive A COVID-19 Clin Com See Note Assessment and Plan (1) Melena: Status: Acute (2) ESRD (end stage renal disease) on dialysis: Status: Acute (3) Pressure sore of lower back: Status: Acute Plan Hospital day -1. 76-year-old male with past medical history of ESRD on dialysis, recently diagnosed cholecystitis status post IR cholecystostomy bag presents to the hospital with complaints of melena and low hemoglobin ? melena -? no significant drop in hemoglobin -? Hemoccult-positive -? will consult GI -? follow H&H, continue ppi. npo past midnight for possible egd in am ? blood in cholecystostomy bag no gross bleeding noted this mornin, no evidence of acute infection follow up General surgery ? anemia of chronic disease -? H&H stable -? asymptomatic -? follow CBC ESRD -? completed dialysis today Saturday -? if patient remains inpatient, will consult Nephrology for inpatient dialysis ? diabetes -? continue home insulin -? will add low-dose sliding scale insulin -? diabetic diet hypertension -? stable -? continue amlodipine. sacral ulcer: added wound carea eval. inpatient need:anemia-pending gi work ,on ppi , moniter h/h.also need wound care. Time Spent With Patient Time: Total time managing care of this patient today ____ minutes. Quality Stroke Does the patient have a stroke diagnosis?: No VTE Prior VTE?: No VTE Risk Level:: Medical - moderate - high VTE Device Contraindication: N/A - Device Ordered VTE Drug Contraindication: Treatment Not Indicated
[2022-04-24] MEDS: Pantoprazole Sodium 40 MG/10 ML VIAL IVPUSH (17:32)
[2022-04-24 19:21] VITALS: BP 115/46; PULSE 53; RESP 20; TEMP 36.7; O2SAT 100
[2022-04-24] MEDS: Atorvastatin Calcium 40 MG TABLET PO (21:52)
[2022-04-24] MEDS: amLODIPine Besylate 5 MG TABLET PO (21:52)
[2022-04-24 23:29] VITALS: BP 139/49; PULSE 65; RESP 20; TEMP 36.7; O2SAT 100
[2022-04-25] VITALS (25 sets, daily range): BP systolic 56–228; BP diastolic 20–194; PULSE 56–105; RESP 10–20; TEMP 36.1–36.5; O2SAT 96–100
--- NOTE | 2022-04-25 | ECG_ITS ---
Test Reason : Hypertension Blood Pressure : / mmHG Vent. Rate : 076 BPM Atrial Rate : 000 BPM P-R Int : 000 ms QRS Dur : 132 ms QT Int : 428 ms P-R-T Axes : 000 -45 145 degrees QTc Int : 481 ms Atrial fibrillation Left axis deviation Left bundle branch block Abnormal ECG No significant changes when compared with the previous EKG of 30 mar 2022 Referred By: Azam Conteh Electronically Signed By:CLAIRE COFFEY
[2022-04-25] MEDS: Pantoprazole Sodium 40 MG/10 ML VIAL IVPUSH ×2 (06:19→16:26)
[2022-04-25 07:37] LABS: Hematocrit 23.4 % (42.0-52.0); Hemoglobin 7.3 g/dl (14.0-18.0)
[2022-04-25] MEDS: Losartan Potassium 50 MG TABLET 100 MG PO (08:22)
[2022-04-25] MEDS: carvediloL 25 MG TABLET PO (08:22)
[2022-04-25] MEDS: UrsodioL 300 MG CAPSULE PO (08:22)
[2022-04-25] MEDS: Ferrous Sulfate 324 MG TABLET.DR PO ×2 (08:22→15:18)
[2022-04-25] MEDS: Sevelamer Carbonate Tablet 800 MG TABLET 1600 MG PO (08:22)
[2022-04-25] MEDS: Bumetanide 1 MG TABLET PO (08:22)
[2022-04-25] MEDS: Multivitamin TABLET 1 TAB PO (08:22)
--- NOTE | 2022-04-25 14:20 | PC.NURSE ---
coccxy dressing changed, right knee stump changed.
[2022-04-25] MEDS: Sodium Hypochlorite 0.125% 473 ML SOLUTION 1 APPL TOPICAL (14:31)
[2022-04-25] MEDS: 0.9 % Sodium Chloride Flush 3 ML SYRINGE IVFLUSH ×2 (14:31→15:20)
--- NOTE | 2022-04-25 15:34 | HO.PM.IMPN ---
Subjective Subjective Date of Service: 04/25/22 Interval History: esrd ,?? blood in Cholecystostomy bag Review of Systems Denies any chest pain or shortness of breath or abdominal pain or fever chills Physical Exam Vital Signs: Vital Signs: Last Vital Signs Temp 96.9 F 04/25/22 15:13 Pulse 62 04/25/22 15:13 Resp 20 04/25/22 15:13 BP 113/58 L 04/25/22 15:13 Pulse Ox 100 04/25/22 15:13 O2 Del Method 04/25/22 15:13 O2 Flow Rate 2 04/25/22 15:13 BMI result Body Mass Index 23.8 Appearance: Alert.? Oriented X3.? not in distress.? cvs: rrr, [id number] . res: clear to auscultation ,no rhonchii or wheezing abd: no rebound or guarding ,nt, bs present. has cholecystomy tube draining -very little drak brown fluid ext pulses present , no cyanosis . neuro: axo3 , nonfocal. Objective Data Active Medications Acetaminophen (Acetaminophen 325 Mg Tablet) 650 mg PO Q6H PRN PRN Reason: Pain, Mild (Pain Scale 1-3) Amlodipine Besylate (Amlodipine Besylate 5 Mg Tablet) 5 mg PO BEDTIME [facility]; Protocol Last Admin: 04/24/22 21:52 Dose: 5 mg Documented By: LUDWIN Atorvastatin Calcium (Atorvastatin Calcium 40 Mg Tablet) 40 mg PO BEDTIME [facility] Last Admin: 04/24/22 21:52 Dose: 40 mg Documented By: LUDWIN Bumetanide (Bumetanide 1 Mg Tablet) 1 mg PO DAILY [facility]; Protocol Last Admin: 04/25/22 08:22 Dose: 1 mg Documented By: SACHA Carvedilol (Carvedilol 25 Mg Tablet) 25 mg PO BID [facility]; Protocol Last Admin: 04/25/22 08:22 Dose: 25 mg Documented By: ASCHA Ferrous Sulfate (Ferrous Sulfate 324 Mg Tablet.) 324 mg PO TID [facility] Last Admin: 04/25/22 15:18 Dose: 324 mg Documented By: SACHA Losartan Potassium (Losartan Potassium 50 Mg Tablet) 100 mg PO DAILY [facility]; Protocol Last Admin: 04/25/22 08:22 Dose: 100 mg Documented By: SACHA Multivitamins/Vitamin C (Multivitamin Tablet) 1 tab PO DAILY [facility] Last Admin: 04/25/22 08:22 Dose: 1 tab Documented By: SACHA Non-Formulary Medication (Fenofibrate Nanocrystallized) 145 mg PO DAILY [facility] Non-Formulary Medication (Insulin Glargine U-300 Conc) 10 unit SUBCUT BID [facility] Ondansetron HCl (Ondansetron Hcl 4 Mg/2 Ml Vial) 4 mg IVPUSH Q8H PRN PRN Reason: Nausea and Vomiting Pantoprazole Sodium (Pantoprazole Sodium 40 Mg/10 Ml Vial) 40 mg IVPUSH BID@0630,1630 [facility] Last Admin: 04/25/22 06:19 Dose: 40 mg Documented By: LUDWIN Sevelamer Carbonate (Sevelamer Carbonate Tablet 800 Mg Tablet) 1,600 mg PO TIDWM [facility] Last Admin: 04/25/22 12:07 Dose: Not Given Documented By: SACHA Non-Admin Reason: Physician Held Med Sodium Chloride (0.9 % Sodium Chloride Flush 3 Ml Syringe) 3 ml IVFLUSH QSHIFT [facility] Last Admin: 04/25/22 15:20 Dose: 3 ml Documented By: SACHA Sodium Hypochlorite (Sodium Hypochlorite 0.125% 473 Ml Solution) 1 appl TOPICAL DAILY [facility] Last Admin: 04/25/22 14:31 Dose: 1 appl Documented By: SACHA Ursodiol (Ursodiol 300 Mg Capsule) 300 mg PO BID [facility] Last Admin: 04/25/22 08:22 Dose: 300 mg Documented By: SACHA Labs 04/25/22 07:18 04/24/22 06:02 Assessment and Plan (1) Melena: Status: Acute (2) ESRD (end stage renal disease) on dialysis: Status: Acute (3) Pressure sore of lower back: Status: Acute Plan Hospital day -2. 76-year-old male with past medical history of ESRD on dialysis, recently diagnosed cholecystitis status post IR cholecystostomy bag presents to the hospital with complaints of melena and low hemoglobin ? melena -? no significant drop in hemoglobin -? Hemoccult-positive -? will consult GI -? follow H&H, continue ppi. possible egd in today ? blood in cholecystostomy bag no gross bleeding noted this mornin, no evidence of acute infection follow up General surgery ? anemia of chronic disease -? H&H stable around 7.3/23.4 -? asymptomatic -? follow CBC ESRD -? completed dialysis today Saturday -? if patient remains inpatient, will consult Nephrology for inpatient dialysis ? diabetes -? continue home insulin -? will add low-dose sliding scale insulin -? diabetic diet hypertension -? stable -? continue amlodipine. sacral ulcer: added wound carea eval. inpatient need:anemia-pending gi work ,on ppi , moniter h/h.also need wound care. Time Spent With Patient Time: Total time managing care of this patient today ____ minutes. Quality Stroke Does the patient have a stroke diagnosis?: No VTE Prior VTE?: No VTE Risk Level:: Medical - moderate - high VTE Device Contraindication: N/A - Device Ordered VTE Drug Contraindication: Treatment Not Indicated
--- NOTE | 2022-04-25 16:30 | MHC.SHP ---
Pre-Procedural Eval Section A Date of Service: 04/25/22 The patient is an INPATIENT: Yes The History & Physical has been completed within 30 days and I have reviewed it.: Yes Section B Chief Complaint: GI Bleed Allergies: Allergies Allergy/AdvReac Type Severity Reaction Status Date / Time lisinopril Allergy Intermediate hyperkalemi Verified 04/23/22 15:18 a hydralazine Allergy Unknown Verified 04/23/22 15:18 hydrochlorothiazide Allergy Unknown Verified 04/23/22 15:18 canagliflozin [Invokana] AdvReac Mild back pain Verified 04/23/22 15:18 lidocaine [From LIDOPRIL] AdvReac Mild Cough Verified 04/23/22 15:18 prilocaine [From LIDOPRIL] AdvReac Mild Cough Verified 04/23/22 15:18 Plan Diagnosis/Plan: Unchanged I have reviewed the history and physical and performed a pertinent physical examination on my patient. No changes have occurred unless specified. Time Spent With Patient Time: Total time managing care of this patient today ____ minutes.
--- NOTE | 2022-04-25 16:31 | P.OP_ITS ---
Operative Note Operative Note Date of Service: 04/25/22 Narrative: Procedure: Esophagogastroduodenoscopy Endoscopist: Lisa Irving MD Indication: Upper GI bleed Anesthesia Provider: Dr Milton Jacome Anesthesia Type: MAC Instrument: Olympus [id number]-190 ?? EGD Procedure:?? The procedure, indications, preparation and potential complications were reviewed with the patient, who indicated understanding and gave written informed consent to proceed. A physical exam was performed. The patient was electively intubated for airway protection the anesthesiologist. The endoscope was introduced through the mouth, and advanced to the second part of duodenum. The mucosa was carefully examined on slow withdrawal of the endoscope. The patient tolerated the procedure well. There were no immediate complications.? ? EGD Findings:? * Esophagus:Normal mucosa noted in the entire esophagus. * Stomach:? Some erosions in the cardia remaining mucosa within normal limit. * Duodenum:?Normal mucosa was noted in the whole of the examined duodenum however fresh blood was noted in the second portion of the duodenum. Oozing from major papilla noted spontaneously. ? EGD Impressions:? * Normal esophagus * Mild gastritis * Hemobilia ?? Recommendations:?? * Will need IR evaluation for hemobilia * Can stay on clears unless IR feels otherwise
--- NOTE | 2022-04-25 16:31 | HO.ANESPROP2 ---
HPI - Anesthesia Eval Consult details Narrative: EGR, covid + PMFSH Active Problems Active Problems: All Active Problems (Updated 04/23/22 @ 23:11 by Janey Packer MD) Anemia of chronic disease (Acute) Melena (Acute) Cholecystitis with cholelithiasis (Acute) Splenic infarct (Acute) Renal infarct (Acute) ESRD (end stage renal disease) on dialysis (Acute) Decubitus ulcer (Acute) Infected blister of great toe of left foot (Acute) Left shoulder pain (Acute) Osteoarthritis of left shoulder (Acute) Wet gangrene (Acute) Gangrene of right foot (Acute) ESRD (end stage renal disease) (Acute) Anemia (Acute) Pressure sore of lower back (Acute) Anemia (Acute) Diabetes (Acute) Hypertension (Acute) End-stage renal disease on hemodialysis (Acute) PAD (peripheral artery disease) (Acute) Diabetes mellitus, with long-term current use of insulin (Acute) Anemia in chronic kidney disease (Acute) Mixed hyperlipidemia (Acute) Diarrhea (Acute) Microalbuminuria (Acute) Past Medical History Medical History Anemia in chronic kidney disease Below-knee amputation of left lower extremity Below-knee amputation of right lower extremity with complication CVA (cerebral vascular accident) Diabetes Diabetes mellitus, with long-term current use of insulin Diarrhea End stage renal disease End-stage renal disease on hemodialysis Fever of unknown origin High cholesterol History of leg amputation Hypertension Microalbuminuria Mixed hyperlipidemia PAD (peripheral artery disease) Preoperative cardiovascular examination Family History Family History Father Myocardial infarction Mother No problems noted. Family history of problems with anesthesia: No Surgical History Surgical History History of eye surgery History of laminectomy History of surgery History of surgery on arm S/P bilateral BKA (below knee amputation) S/P CABG x 4 S/P unilateral BKA (below knee amputation) History of Problems with Anesthesia: No Social History Social History Household Members: Family and Caregiver Housing: House Do you presently have visiting nurse or other home services: Yes (Daily) Alcohol intake: unknown Patient Tobacco Use Status: Never used Tobacco Smoked in Last 30 Days: No e-Cigarette/Vaping Use: Never Used Patient Interested in Nicotine Replacement: No Patient Given Instructions on How to Stop Smoking: No Second Hand Smoke Exposure: No Use of substances other than those prescribed or required for medical reasons: No Currently Displaying Signs/Symptoms of Drug Intoxication Withdrawal: No Any prior treatment program specific to substance use: No Have you been hit, kicked, punched, or otherwise hurt by someone within the past year? If so, by whom?: No Do you feel safe in your current relationship?: No Is there a partner from a previous relationship who is making you feel unsafe now?: No Are you made to feel afraid or neglected: No Spiritual Healthcare Practices: taoist Advance Directives: Yes Advance Directives on File: Yes Advance Directives Date on File: 06/15/21 Do you have thoughts of harming others: None Do you have a plan to hurt others: No Plan Recently lost weight without trying: Yes How much weight loss: 2-13 pounds Eating poorly because of decreased appetite: Yes Nutrition screen score: 4 Poor oral hygiene: No service: No Current occupational status: retired and disabled Cognitive needs: Yes Hearing needs: No Vision needs: No Meds Allergies Allergy/AdvReac Type Severity Reaction Status Date / Time lisinopril Allergy Intermediate hyperkalemi Verified 04/23/22 15:18 a hydralazine Allergy Unknown Verified 04/23/22 15:18 hydrochlorothiazide Allergy Unknown Verified 04/23/22 15:18 canagliflozin [Invokana] AdvReac Mild back pain Verified 04/23/22 15:18 lidocaine [From LIDOPRIL] AdvReac Mild Cough Verified 04/23/22 15:18 prilocaine [From LIDOPRIL] AdvReac Mild Cough Verified 04/23/22 15:18 Active Medications: Current Medications Acetaminophen (Acetaminophen 325 Mg Tablet) 650 mg PO Q6H PRN PRN Reason: Pain, Mild (Pain Scale 1-3) Amlodipine Besylate (Amlodipine Besylate 5 Mg Tablet) 5 mg PO BEDTIME [facility]; Protocol Last Admin: 04/24/22 21:52 Dose: 5 mg Atorvastatin Calcium (Atorvastatin Calcium 40 Mg Tablet) 40 mg PO BEDTIME [facility] Last Admin: 04/24/22 21:52 Dose: 40 mg Bumetanide (Bumetanide 1 Mg Tablet) 1 mg PO DAILY [facility]; Protocol Last Admin: 04/25/22 08:22 Dose: 1 mg Carvedilol (Carvedilol 25 Mg Tablet) 25 mg PO BID [facility]; Protocol Last Admin: 04/25/22 08:22 Dose: 25 mg Ferrous Sulfate (Ferrous Sulfate 324 Mg Tablet.Dr) 324 mg PO TID [facility] Last Admin: 04/25/22 15:18 Dose: 324 mg Losartan Potassium (Losartan Potassium 50 Mg Tablet) 100 mg PO DAILY [facility]; Protocol Last Admin: 04/25/22 08:22 Dose: 100 mg Multivitamins/Vitamin C (Multivitamin Tablet) 1 tab PO DAILY [facility] Last Admin: 04/25/22 08:22 Dose: 1 tab Non-Formulary Medication (Fenofibrate Nanocrystallized) 145 mg PO DAILY [facility] Non-Formulary Medication (Insulin Glargine U-300 Conc) 10 unit SUBCUT BID [facility] Ondansetron HCl (Ondansetron Hcl 4 Mg/2 Ml Vial) 4 mg IVPUSH Q8H PRN PRN Reason: Nausea and Vomiting Pantoprazole Sodium (Pantoprazole Sodium 40 Mg/10 Ml Vial) 40 mg IVPUSH BID@0630,1630 [facility] Last Admin: 04/25/22 16:26 Dose: 40 mg Sevelamer Carbonate (Sevelamer Carbonate Tablet 800 Mg Tablet) 1,600 mg PO TIDWM [facility] Last Admin: 04/25/22 12:07 Dose: Not Given Sodium Chloride (0.9 % Sodium Chloride Flush 3 Ml Syringe) [facility] Last Admin: 04/25/22 15:20 Dose: 3 ml Sodium Hypochlorite (Sodium Hypochlorite 0.125% 473 Ml Solution) 1 appl TOPICAL DAILY [facility] Last Admin: 04/25/22 14:31 Dose: 1 appl Ursodiol (Ursodiol 300 Mg Capsule) 300 mg PO BID [facility] Last Admin: 04/25/22 08:22 Dose: 300 mg Home Medications Medication Instructions Recorded Confirmed Last Taken Type sevelamer carbonate 800 mg tablet 1,600 mg PO TIDWM 01/22/20 04/23/22 03/30/22 History amlodipine 5 mg tablet 5 mg PO BEDTIME 06/01/21 04/23/22 03/30/22 History aspirin 81 mg tablet,delayed 1 tab PO DAILY 06/01/21 04/23/22 03/30/22 History release carvedilol 25 mg tablet 1 tab PO BID 06/01/21 04/23/22 03/30/22 History ursodiol 300 mg capsule 1 cap PO BID 06/01/21 04/23/22 03/30/22 History losartan 100 mg tablet 100 mg PO DAILY 01/23/22 04/23/22 03/30/22 History vitamin B complex and vitamin C 1 cap PO DAILY 03/30/22 04/23/22 03/30/22 History no.20-folic acid 1 mg capsule (Virt-Caps) Exam Exam Date and Time: April 25, 2022 1631 Height,Weight and Vital Signs: Height 5 ft 4 in Weight 63 kg Last Vital Signs Temp 96.9 F 04/25/22 15:13 Pulse 62 04/25/22 15:13 Resp 20 04/25/22 15:13 BP 113/58 L 04/25/22 15:13 Pulse Ox 100 04/25/22 15:13 O2 Del Method 04/25/22 15:13 O2 Flow Rate 2 04/25/22 15:13 Pertinent Lab Results Pertinent Lab Results: Laboratory Tests 04/23/22 04/23/22 04/23/22 17:44 17:44 19:52 WBC 7.7 RBC 2.41 L Hgb 7.8 L Hct 24.9 L MCV 103.3 H MCH 32.4 MCHC 31.3 RDW 18.1 H Plt Count 226 D MPV 11.2 Immature Gran % (Auto) 0.5 H Neut % (Auto) 77.9 H Lymph % (Auto) 11.1 L [place] % (Auto) 5.2 Eos % (Auto) 4.3 H Baso % (Auto) 1.0 Lymph # (Auto) 0.9 L [place] # (Auto) 0.4 Eos # (Auto) 0.3 Baso # (Auto) 0.1 Abs Immat Gran (auto) 0.04 H Absolute Neuts (auto) 6.0 Absolute Nucleated RBC 0.000 Nucleated RBC % (auto) 0.0 Sodium 136 Potassium 3.6 D Chloride 100 Carbon Dioxide 24 Anion Gap 16 BUN 31 H Creatinine 2.03 H Estim Creat Clear Calc 26.3 Estimated GFR 32 Random Glucose 123 H Calcium 8.2 L Total Bilirubin 0.6 Direct Bilirubin 0.3 AST 24 ALT 15 Alkaline Phosphatase 120 H Total Protein 5.6 L Albumin 2.2 L Lipase 23 Stool Occult Blood POSITIVE COVID-19 ([facility]) COVID-19 [facility] Com 04/24/22 04/24/22 04/24/22 02:54 06:02 06:02 WBC 8.0 RBC 2.38 L Hgb 7.7 L Hct 24.6 L MCV 103.4 H MCH 32.4 MCHC 31.3 RDW 18.6 H Plt Count 248 MPV 11.6 Immature Gran % (Auto) 0.6 H Neut % (Auto) 80.3 H Lymph % (Auto) 9.4 L [place] % (Auto) 5.1 Eos % (Auto) 3.6 Baso % (Auto) 1.0 Lymph # (Auto) 0.8 L [place] # (Auto) 0.4 Eos # (Auto) 0.3 Baso # (Auto) 0.1 Abs Immat Gran (auto) 0.05 H Absolute Neuts (auto) 6.4 Absolute Nucleated RBC 0.000 Nucleated RBC % (auto) 0.0 Sodium 137 Potassium 3.6 Chloride 97 Carbon Dioxide 29 Anion Gap 15 BUN 39 H Creatinine 2.69 H Estim Creat Clear Calc 19.8 Estimated GFR 23 Random Glucose 100 Calcium 8.6 Total Bilirubin Direct Bilirubin AST ALT Alkaline Phosphatase Total Protein Albumin Lipase Stool Occult Blood COVID-19 ([facility]) Positive A COVID-19 [facility] Com See Note 04/25/22 07:18 WBC RBC Hgb 7.3 L Hct 23.4 L MCV MCH MCHC RDW Plt Count MPV Immature Gran % (Auto) Neut % (Auto) Lymph % (Auto) [place] % (Auto) Eos % (Auto) Baso % (Auto) Lymph # (Auto) Hill # (Auto) Eos # (Auto) Baso # (Auto) Abs Immat Gran (auto) Absolute Neuts (auto) Absolute Nucleated RBC Nucleated RBC % (auto) Sodium Potassium Chloride Carbon Dioxide Anion Gap BUN Creatinine Estim Creat Clear Calc Estimated GFR Random Glucose Calcium Total Bilirubin Direct Bilirubin AST ALT Alkaline Phosphatase Total Protein Albumin Lipase Stool Occult Blood COVID-19 ([facility]) COVID-19 Clin Com Airway Mallampati Class: III TM Dist: >3cm Neck ROM: Limited Heart: rrr Lungs: bilat basilar rales Assessment and Plan Final Anesthetic Review Family History of Problems with Anesthesia: No History of Problems with Anesthesia: No ASA Class: IV and Emergency Final Preanesthetic Review: No Changes in Pt Med Stat, Meds/Allgs Chart Reviewed, Consent Obtained/Reviewed and Anes Risks/Benef Reviewed Patient Risk: High Procedure Risk: Intermediate Anesthetic Plan Anesthetic Plan: MAC: and Agree w/ Assess. and Plan Disposition: Standard PACU
[2022-04-25] MEDS: Norepinephrine Bitartrate/D5W 8 MG/250 ML PLAST..BAG 5.9 MG IV (18:40)
[2022-04-25 19:11] LABS: MANUAL DIFF FLAG NO
[2022-04-25 19:14] LABS: Venous Blood Gas Refer to POC result
[2022-04-25 19:15] LABS: VBG Base Excess 3.2 mmol/L; VBG HCO3 26 mmol/L (22-26); VBG pCO2 34 mmHg; VBG pH 7.49 (7.32-7.43); VBG pO2 110 mmHg
[2022-04-25 19:30] LABS: Lactic Acid 0.8 mmol/L (0.5-2.0)
[2022-04-25 19:35] LABS: Alanine Aminotransferase 24 U/L (0-40); Alkaline Phosphatase 135 U/L (39-117); Anion Gap 16 (12-20); Aspartate Amino Transferase 68 U/L (5-37); Bilirubin Total 0.8 mg/dL (0.0-1.0); Blood Urea Nitrogen 52 mg/dL (9-16); Calcium 8.3 mg/dL (8.4-10.2); Carbon Dioxide 25 mmol/L (22-29); Chloride 100 mmol/L (96-108); Creatinine Clr Calc Pharmacy 13.5; Estimated Glomerular Filt Rate 15; Glucose Random 120 mg/dL (60-115); Potassium 4.9 mmol/L (3.3-5.1); Sodium 136 mmol/L (135-145); Total Protein 5.1 g/dL (6.5-8.0)
[2022-04-25 19:42] LABS: Basophils Absolute Auto 0.1 X10*3/uL (0.0-0.2); Basophils Percent Auto 0.7 % (0-2); Eosinophils Absolute Auto 0.2 X10*3/uL (0.0-0.4); Eosinophils Percent Auto 2.1 % (0-4); Hematocrit 22.3 % (42.0-52.0); Imm Gran Abs Auto 0.04 X10*3/uL (0.00-0.03); Imm Gran Pct Auto 0.5 % (0.0-0.4); Lymphocytes Absolute Auto 0.6 X10*3/uL (1.2-4.9); Lymphocytes Percent Auto 8.1 % (20-40); Mean Corpuscular HGB Conc 31.4 g/dl (31.0-36.0); Mean Corpuscular Hemoglobin 32.4 pg (27.0-33.0); Mean Corpuscular Volume 103.2 fL (80.0-98.0); Mean Platelet Volume 11.5 fL (9.4-12.4); Monocytes Absolute Auto 0.3 X10*3/uL (0.1-1.2); Monocytes Percent Auto 4.3 % (2-11); Neutrophils Absolute Auto 6.5 x10*3/uL (2.0-8.3); Neutrophils Percent Auto 84.3 % (45-73); Platelet Count 197 X10*3/uL (160-400); Red Blood Count 2.16 X10*6/uL (4.60-5.80); Red Cell Distribution Width 18.4 % (11.0-16.0); White Blood Count 7.7 X10*3/uL (4.8-10.8)
--- NOTE | 2022-04-25 20:15 | W.PM.CCCN ---
History of Present Illness Data of Consult Service Date: 04/25/22 Primary Care Provider: Unknown Physician HPI Reason for consult: Hypotension Patient is a 76 y/o Surinamese-speaking male patient with medical history significant for End-stage renal? disease on? dialysis ( MWF),? diabetes mellitus,? PAD,? coronary artery disease status post CABG, post bilateral BKA, anemia of chronic disease,? recent hospitalization for cholecystitis and cholelithiasis s/p IR cholecystectomy bag.? Was admitted to Hospital Medicine on 04/23/2022? blood in the cholecystostomy bag? with complaints of melena and low hemoglobin.?? Today patient? underwent EGD? with Dr Irving/ EGR revealed Normal esophagus, Mild gastritis, and Hemobilia. Post procedure? patient remained hypotensive despite fluid resuscitation? required initiation of vasopressors.? ? On arrival to the? intensive care unit,? patient blood pressures in the 200s,? EKG reveal new atrial fibrillation.? Post EGD hemoglobin was 7 from 7.3.? Review of Systems Review of Systems: as per HPI Yes all other systems are reviewed and are negative PMFSH Past Medical History Medical History Anemia in chronic kidney disease Below-knee amputation of left lower extremity Below-knee amputation of right lower extremity with complication CVA (cerebral vascular accident) Diabetes Diabetes mellitus, with long-term current use of insulin Diarrhea End stage renal disease End-stage renal disease on hemodialysis Fever of unknown origin High cholesterol History of leg amputation Hypertension Microalbuminuria Mixed hyperlipidemia PAD (peripheral artery disease) Preoperative cardiovascular examination Family History Family History Father Myocardial infarction Mother No problems noted. Surgical History Surgical History History of eye surgery History of laminectomy History of surgery History of surgery on arm S/P bilateral BKA (below knee amputation) S/P CABG x 4 S/P unilateral BKA (below knee amputation) Social History Social History Household Members: Family and Caregiver Housing: House Do you presently have visiting nurse or other home services: Yes (Daily) Alcohol intake: unknown Patient Tobacco Use Status: Never used Tobacco Smoked in Last 30 Days: No e-Cigarette/Vaping Use: Never Used Patient Interested in Nicotine Replacement: No Patient Given Instructions on How to Stop Smoking: No Second Hand Smoke Exposure: No Use of substances other than those prescribed or required for medical reasons: No Currently Displaying Signs/Symptoms of Drug Intoxication Withdrawal: No Any prior treatment program specific to substance use: No Have you been hit, kicked, punched, or otherwise hurt by someone within the past year? If so, by whom?: No Do you feel safe in your current relationship?: No Is there a partner from a previous relationship who is making you feel unsafe now?: No Are you made to feel afraid or neglected: No Spiritual Healthcare Practices: bahai Advance Directives: Yes Advance Directives on File: Yes Advance Directives Date on File: 06/15/21 Do you have thoughts of harming others: None Do you have a plan to hurt others: No Plan Recently lost weight without trying: Yes How much weight loss: 2-13 pounds Eating poorly because of decreased appetite: Yes Nutrition screen score: 4 Poor oral hygiene: No service: No Current occupational status: retired and disabled Cognitive needs: Yes Hearing needs: No Vision needs: No Meds Allergies Allergy/AdvReac Type Severity Reaction Status Date / Time lisinopril Allergy Intermediate hyperkalemi Verified 04/23/22 15:18 a hydralazine Allergy Unknown Verified 04/23/22 15:18 hydrochlorothiazide Allergy Unknown Verified 04/23/22 15:18 canagliflozin [Invokana] AdvReac Mild back pain Verified 04/23/22 15:18 lidocaine [From LIDOPRIL] AdvReac Mild Cough Verified 04/23/22 15:18 prilocaine [From LIDOPRIL] AdvReac Mild Cough Verified 04/23/22 15:18 Active Medications: Current Medications Acetaminophen (Acetaminophen 325 Mg Tablet) 650 mg PO Q6H PRN PRN Reason: Pain, Mild (Pain Scale 1-3) Norepinephrine Bitartrate (Levophed) 8 mg in 250 mls @ 0 mls/hr IV .Q0M HANH; Protocol Ondansetron HCl (Ondansetron Hcl 4 Mg/2 Ml Vial) 4 mg IVPUSH Q8H PRN PRN Reason: Nausea and Vomiting Pantoprazole Sodium (Pantoprazole Sodium 40 Mg/10 Ml Vial) 40 mg IVPUSH BID@0630,1430 [facility] Last Admin: 04/25/22 16:26 Dose: 40 mg Sevelamer Carbonate (Sevelamer Carbonate Tablet 800 Mg Tablet) 1,600 mg PO TIDWM [facility] Last Admin: 04/25/22 17:14 Dose: Not Given Sodium Chloride (0.9 % Sodium Chloride Flush 3 Ml Syringe) 3 ml IVFLUSH QSHIFT [facility] Last Admin: 04/25/22 15:20 Dose: 3 ml Sodium Hypochlorite (Sodium Hypochlorite 0.125% 473 Ml Solution) 1 appl TOPICAL DAILY [facility] Last Admin: 04/25/22 14:31 Dose: 1 appl Ursodiol (Ursodiol 300 Mg Capsule) 300 mg PO BID [facility] Last Admin: 04/25/22 08:22 Dose: 300 mg Home Medications Medication Instructions Recorded Confirmed Last Taken Type sevelamer carbonate 800 mg tablet 1,600 mg PO TIDWM 01/22/20 04/23/22 03/30/22 History amlodipine 5 mg tablet 5 mg PO BEDTIME 06/01/21 04/23/22 03/30/22 History aspirin 81 mg tablet,delayed 1 tab PO DAILY 06/01/21 04/23/22 03/30/22 History release carvedilol 25 mg tablet 1 tab PO BID 06/01/21 04/23/22 03/30/22 History ursodiol 300 mg capsule 1 cap PO BID 06/01/21 04/23/22 03/30/22 History losartan 100 mg tablet 100 mg PO DAILY 01/23/22 04/23/22 03/30/22 History vitamin B complex and vitamin C 1 cap PO DAILY 03/30/22 04/23/22 03/30/22 History no.20-folic acid 1 mg capsule (Virt-Caps) Physical Exam Vital Signs: Vital Signs: Last Vital Signs Temp 96.9 F 04/25/22 15:13 Pulse 78 04/25/22 20:00 Resp 13 04/25/22 20:00 BP 184/88 H 04/25/22 20:00 Pulse Ox 100 04/25/22 20:00 O2 Del Method 04/25/22 20:00 O2 Flow Rate 4 04/25/22 20:00 BMI result Body Mass Index 23.8 ?General:?Surinamese speaking only, Alert oriented x3 no acute distress.? Speaking full sentences. Following all commands. ?HEENT:? Head is normocephalic, atraumatic, pupils equal round reactive to light accommodation bilaterally.? Extraocular movements appear intact.? Buccal mucosa is normal, Neck is supple without lymphadenopathy. ?Cardiac: New AFIB noted on EKG, rate control. HD fistula on right arm. ? Clear S1-S2, no murmurs rubs or gallops. ?Pulmonary:? Clear to auscultation, no wheezes, rales or rhonchi. ?Abdomen:? AZAEL draining bloody drainage. ?Abdomen soft, non-tender, non-distended. Normal bowel sounds. ?Musculoskeletal:? bilateral BKA. chronic right arm weakness. ?Neurologic:? No focal deficits noted?? ?Skin:? chronic coccyx pressure ulcer. no edema. Vascular:? 2+ pulses upper extremities distally.? Results Labs 04/25/22 19:02 04/25/22 19:02 Labs: Short CBC 04/25/22 04/25/22 Range/Units 07:18 19:02 WBC 7.7 (4.8-10.8) X10*3/uL Hgb 7.3 L 7.0 L* (14.0-18.0) g/dl Hct 23.4 L 22.3 L (42.0-52.0) % Plt Count 197 (160-400) X10*3/uL BMP 04/25/22 19:02 Sodium 136 Potassium 4.9 D Chloride 100 Carbon Dioxide 25 BUN 52 H Creatinine 3.95 H Calcium 8.3 L Liver Function 04/25/22 Range/Units 19:02 Total Bilirubin 0.8 (0.0-1.0) mg/dL AST 68 H (5-37) U/L ALT 24 (0-40) U/L Alkaline Phosphatase 135 H (39-117) U/L Albumin 2.0 L (3.5-5.0) g/dL Assessment and Plan (1) Hypotension: Status: Acute (2) Hemobilia: Status: Acute (3) Cholecystitis with cholelithiasis: Status: Acute (4) Atrial fibrillation: Status: Acute (5) Acute blood loss anemia: Status: Acute (6) ESRD (end stage renal disease) on dialysis: Status: Acute (7) COVID-19: Status: Acute Plan Neuro:? no acute issues Cardiac: Hypotension ?Patient blood pressure was in the 200s on arrival to the intensive care unit,? lactic was 0.8, ? vasopressors quickly stopped. hypotension is likely a mixture of? sedation and acute blood loss anemia.? Will give 1 unit RBC ?New onset atrial fibrillation:? AFib rate control shown on EKG, ? no history of AFib? in chart or at [facility]. Unable to? anticoagulate at this time due to bleed.? It is rate controlled at this time.? Will continue to monitor closely.? Pulmonary:? COVID-19-? has acted diagnosis of COVID, ? not experiencing worsening symptoms at this time.? Renal:? ?End-stage renal disease on hemodialysis (MWF)- Received dialysis on saturday. Will need dialysis tomorrow? Endo:? No acute issues.?? GI:??? Hemobilia-EGD revealed hemobilia, GI advice for IR consult. Patient is now hemodynamically stable, will consult IR in the am. If patient 's condition worsens, will consider calling outside facility.? Heme/Onc:?? ?Acute blood loss Anemia-? hemoglobin dropped to 7 likely from hemobilia. Will give x 1RBC. Keep hemoglobin > 7?? ID:? No acute issues? Psych:? No acute issues. Miscellaneous:?? ?No acute issues? Diet: NPO for possible IR procedure tomorrow? Prophylaxis:? due to active bleed will cont? compression device, No GI prophylaxis at this time ?Critical care time:? X 60 minutes of critical care time ? Code FULL? Case Discussed with Dr Tyler Time Spent With Patient Time: Total time managing care of this patient today ____ minutes. Critical Care Time Critical Care Time (minutes): 60
[2022-04-25 21:56] LABS: Magnesium 1.9 mg/dL (1.6-2.6); Phosphorus 5.9 mg/dL (2.7-4.5)
[2022-04-26] VITALS (13 sets, daily range): BP systolic 96–144; BP diastolic 24–71; PULSE 68–83; RESP 11–23; TEMP 36.2–36.8; O2SAT 91–100; BMI 23.8
[2022-04-26 00:31] LABS: Glucose, Whole Blood 99 mg/dL (60-115)
[2022-04-26] MEDS: 0.9 % Sodium Chloride Flush 3 ML SYRINGE IVFLUSH (00:55)
[2022-04-26 05:23] LABS: VBG HCO3 29 mmol/L (22-26); VBG pCO2 42 mmHg; VBG pH 7.44 (7.32-7.43); VBG pO2 61 mmHg
[2022-04-26 06:14] LABS: MANUAL DIFF FLAG NO
[2022-04-26 06:24] LABS: Glucose, Whole Blood 84 mg/dL (60-115)
[2022-04-26 06:25] LABS: Basophils Absolute Auto 0.1 X10*3/uL (0.0-0.2); Basophils Percent Auto 0.6 % (0-2); Eosinophils Absolute Auto 0.3 X10*3/uL (0.0-0.4); Eosinophils Percent Auto 3.4 % (0-4); Hematocrit 25.4 % (42.0-52.0); Hematocrit 25.5 % (42.0-52.0); Hemoglobin 8.1 g/dl (14.0-18.0); Imm Gran Abs Auto 0.05 X10*3/uL (0.00-0.03); Imm Gran Pct Auto 0.6 % (0.0-0.4); Lymphocytes Absolute Auto 0.8 X10*3/uL (1.2-4.9); Lymphocytes Percent Auto 9.1 % (20-40); Mean Corpuscular HGB Conc 31.9 g/dl (31.0-36.0); Mean Corpuscular Hemoglobin 31.4 pg (27.0-33.0); Mean Corpuscular Volume 98.4 fL (80.0-98.0); Mean Platelet Volume 11.8 fL (9.4-12.4); Monocytes Absolute Auto 0.3 X10*3/uL (0.1-1.2); Monocytes Percent Auto 4.1 % (2-11); Neutrophils Absolute Auto 6.8 x10*3/uL (2.0-8.3); Neutrophils Percent Auto 82.2 % (45-73); Platelet Count 214 X10*3/uL (160-400); Red Blood Count 2.58 X10*6/uL (4.60-5.80); White Blood Count 8.2 X10*3/uL (4.8-10.8)
[2022-04-26] MEDS: Pantoprazole Sodium 40 MG/10 ML VIAL IVPUSH ×2 (06:30→16:36)
[2022-04-26 07:06] LABS: Anion Gap 20 (12-20); Blood Urea Nitrogen 58 mg/dL (9-16); Calcium 8.4 mg/dL (8.4-10.2); Carbon Dioxide 22 mmol/L (22-29); Chloride 100 mmol/L (96-108); Glucose Random 78 mg/dL (60-115); Potassium 4.3 mmol/L (3.3-5.1); Sodium 138 mmol/L (135-145)
[2022-04-26 07:13] LABS: Creatinine Clr Calc Pharmacy 12.2; Estimated Glomerular Filt Rate 13
[2022-04-26 07:14] LABS: Alanine Aminotransferase 26 U/L (0-40); Albumin Level 2.1 g/dL (3.5-5.0); Alkaline Phosphatase 140 U/L (39-117); Anion Gap 19 (12-20); Aspartate Amino Transferase 50 U/L (5-37); Bilirubin Total 1.8 mg/dL (0.0-1.0); Blood Urea Nitrogen 59 mg/dL (9-16); Calcium 8.5 mg/dL (8.4-10.2); Carbon Dioxide 23 mmol/L (22-29); Chloride 100 mmol/L (96-108); Creatinine Clr Calc Pharmacy 12.1; Estimated Glomerular Filt Rate 13; Glucose Random 79 mg/dL (60-115); Magnesium 1.9 mg/dL (1.6-2.6); Phosphorus 6.1 mg/dL (2.7-4.5); Potassium 4.3 mmol/L (3.3-5.1); Sodium 138 mmol/L (135-145); Total Protein 5.3 g/dL (6.5-8.0)
[2022-04-26 07:22] LABS: Venous Blood Gas Refer to POC result
--- NOTE | 2022-04-26 07:42 | PC.NURSE ---
Patient admitted to ICU from OR directly after EGD. Patient may need IR guided procedure to work up for hemobillius. Patient with bleeding from cholecystostomy tube upon arrival, a total of 90 ccs and a clot in AZAEL discussed this with TRUST CLERK and OR team. Arrived on levophed 0.11, and MAP was 200 on arrival; levophed rapidly weaned off as per TRUST CLERK direction overriding protocol. Patient BP sustained MAP >65 with some positional artifactual measurements. Patient was administered 1 unit RBCs and well tolerated slow administration per TRUST CLERK. Patient has large unstageable ulcer on sacrum that was photographed and dressing changed 3 times due to dark liquid BMs, which would stain the dressings. Patient also has jyoti-anal maceration, and a rectal tube seems possibly contraindicated. Patient also with venous stasis ulcer to right BKA stump with dressing CDI. Patient was on 4 LPM NC on arrival and this was weaned to room air with good effect. Patient is anuric.
[2022-04-26] MEDS: UrsodioL 300 MG CAPSULE PO (08:51)
[2022-04-26] MEDS: Acetaminophen 325 MG TABLET 650 MG PO (09:46)
--- NOTE | 2022-04-26 10:03 | PM.CCPN ---
Subjective Subjective Date of Service: 04/26/22 Interval History: 76-year-old gentleman with underlying end-stage renal disease on hemodialysis, diabetes mellitus, peripheral artery disease status post bilateral BKA, CVA, coronary artery disease status post CABG, with recent admission to [facility] for cholecystitis status post cholecystostomy on 04/02/2022 admitted on 04/23/2022 with blood and cholecystostomy back, melena, and subacute anemia. On 04/25/2022 patient has had an EGD that showed mild hemobilia. Postop period complicated by hypotension, likely secondary to procedural sedation exacerbated by underlying subacute anemia with preprocedure hemoglobin of 7.3 and postprocedure hemoglobin of 7. Patient arrived to the intensive care unit on peripheral pressors with systolic blood pressure in 200s and was taken off vasopressor support. He was transfused 1 unit of packed red blood cells with appropriate hemoglobin response and monitored in the intensive care unit overnight, and did not require pressors anymore. Hemoglobin stable in the morning. Overnight events as above. Critical Care Time (minutes): 0 Physical Exam Vital Signs: Vital Signs: Last Vital Signs Temp 98.2 F 04/26/22 08:00 Pulse 81 04/26/22 09:00 Resp 15 04/26/22 09:00 BP 122/28 L 04/26/22 09:00 Pulse Ox 95 04/26/22 09:00 O2 Del Method 04/26/22 09:00 O2 Flow Rate 2 04/25/22 23:00 BMI result Body Mass Index 23.8 Const: General: no acute distress, alert, awake and other Eyes: Sclerae: sclerae normal EOM: EOMs intact bilaterally Neck: Neck: Yes no lymphadenopathy, Yes trachea midline and Yes supple Resp: Effort & Inspection: normal respiratory effort and no respiratory distress Auscultation: clear to auscultation bilaterally Cardio: Rate: regular rate Rhythm: regular rhythm Heart sounds: no gallops, no murmurs and no rubs GI: Palpation (GI): Soft to palpation and Other GI palpation findings present ( Nontender) Auscultation: normal bowel sounds Extrem: General: No clubbing, No cyanosis and Yes other (Bilateral BKA) Objective Data Labs 04/26/22 05:14 04/26/22 05:14 Labs: Laboratory Results - last 24 hr 02/04/25/22 04/25/22 19:00 19:02 19:02 WBC 7.7 RBC 2.16 L Hgb 7.0 L* Hct 22.3 L MCV 103.2 H MCH 32.4 MCHC 31.4 RDW 18.4 H Plt Count 197 MPV 11.5 Immature Gran % (Auto) 0.5 H Neut % (Auto) 84.3 H Lymph % (Auto) 8.1 L Ellis % (Auto) 4.3 Eos % (Auto) 2.1 Baso % (Auto) 0.7 Lymph # (Auto) 0.6 L Ellis # (Auto) 0.3 Eos # (Auto) 0.2 Baso # (Auto) 0.1 Abs Immat Gran (auto) 0.04 H Absolute Neuts (auto) 6.5 Absolute Nucleated RBC 0.000 Nucleated RBC % (auto) 0.0 VBG pH VBG pCO2 VBG pO2 VBG HCO3 VBG O2 Saturation VBG Base Excess Sodium 136 Potassium 4.9 D Chloride 100 Carbon Dioxide 25 Anion Gap 16 BUN 52 H Creatinine 3.95 H Estim Creat Clear Calc 13.5 Estimated GFR 15 POC Glucose Random Glucose 120 H Lactic Acid Calcium 8.3 L Phosphorus 5.9 H Magnesium 1.9 Total Bilirubin 0.8 AST 68 H ALT 24 Alkaline Phosphatase 135 H Total Protein 5.1 L Albumin 2.0 L Blood Type A Positive Antibody Screen NEGATIVE Crossmatch See Detail Crossmatch ([facility]) See Detail 04/25/22 04/25/22 04/26/22 19:02 19:06 00:09 WBC RBC Hgb Hct MCV MCH MCHC RDW Plt Count MPV Immature Gran % (Auto) Neut % (Auto) Lymph % (Auto) Ellis % (Auto) Eos % (Auto) Baso % (Auto) Lymph # (Auto) Ellis # (Auto) Eos # (Auto) Baso # (Auto) Abs Immat Gran (auto) Absolute Neuts (auto) Absolute Nucleated RBC Nucleated RBC % (auto) VBG pH 7.49 H VBG pCO2 34 VBG pO2 110 VBG HCO3 26 VBG O2 Saturation 99.0 VBG Base Excess 3.2 Sodium Potassium Chloride Carbon Dioxide Anion Gap BUN Creatinine Estim Creat Clear Calc Estimated GFR POC Glucose 99 Random Glucose Lactic Acid 0.8 Calcium Phosphorus Magnesium Total Bilirubin AST ALT Alkaline Phosphatase Total Protein Albumin Blood Type Antibody Screen Crossmatch Crossmatch ([facility]) 04/26/22 04/26/22 04/26/22 05:14 05:14 05:14 WBC 8.2 RBC 2.58 L Hgb 8.1 L 8.1 L Hct 25.5 L 25.4 L MCV 98.4 H MCH 31.4 MCHC 31.9 RDW 20.0 H Plt Count 214 MPV 11.8 Immature Gran % (Auto) 0.6 H Neut % (Auto) 82.2 H Lymph % (Auto) 9.1 L Ellis % (Auto) 4.1 Eos % (Auto) 3.4 Baso % (Auto) 0.6 Lymph # (Auto) 0.8 L Ellis # (Auto) 0.3 Eos # (Auto) 0.3 Baso # (Auto) 0.1 Abs Immat Gran (auto) 0.05 H Absolute Neuts (auto) 6.8 Absolute Nucleated RBC 0.000 Nucleated RBC % (auto) 0.0 VBG pH VBG pCO2 VBG pO2 VBG HCO3 VBG O2 Saturation VBG Base Excess Sodium 138 Potassium 4.3 Chloride 100 Carbon Dioxide 22 Anion Gap 20 BUN 58 H Creatinine 4.37 H* Estim Creat Clear Calc 12.2 Estimated GFR 13 POC Glucose Random Glucose 78 Lactic Acid Calcium 8.4 Phosphorus Magnesium Total Bilirubin AST ALT Alkaline Phosphatase Total Protein Albumin Blood Type Antibody Screen Crossmatch Crossmatch ([facility]) 04/26/22 04/26/22 04/26/22 05:14 05:15 06:20 WBC RBC Hgb Hct MCV MCH MCHC RDW Plt Count MPV Immature Gran % (Auto) Neut % (Auto) Lymph % (Auto) Ellis % (Auto) Eos % (Auto) Baso % (Auto) Lymph # (Auto) Ellis # (Auto) Eos # (Auto) Baso # (Auto) Abs Immat Gran (auto) Absolute Neuts (auto) Absolute Nucleated RBC Nucleated RBC % (auto) VBG pH 7.44 H VBG pCO2 42 VBG pO2 61 VBG HCO3 29 H VBG O2 Saturation 89.0 VBG Base Excess 5.0 Sodium 138 Potassium 4.3 Chloride 100 Carbon Dioxide 23 Anion Gap 19 BUN 59 H Creatinine 4.41 H* Estim Creat Clear Calc 12.1 Estimated GFR 13 POC Glucose 84 Random Glucose 79 Lactic Acid Calcium 8.5 Phosphorus 6.1 H Magnesium 1.9 Total Bilirubin 1.8 H AST 50 H ALT 26 Alkaline Phosphatase 140 H Total Protein 5.3 L Albumin 2.1 L Blood Type Antibody Screen Crossmatch Crossmatch ([facility]) Progress Note: A&P Assessment and plan (1) Hemobilia: Status: Acute (2) Acute blood loss anemia: Status: Acute (3) COVID-19: Status: Acute (4) ESRD (end stage renal disease) on dialysis: Status: Acute (5) Diabetes: Status: Acute (6) PAD (peripheral artery disease): Status: Acute Plan Assessment: 76-year-old gentleman with recent cholecystostomy a admitted with subacute anemia, melena, and blood in cholecystostomy bag, status post EGD on 04/25/2022 with postprocedure hypotension Plan: Neuro: No acute issues. Cardiac: No acute issues. Underlying coronary artery disease and AFib, no anticoagulation secondary to subacute anemia. Pulmonary: No acute issues. Renal: End-stage renal disease on hemodialysis Tuesdays, , and Saturday. Endo: No acute issues. GI: Hemobilia with subacute anemia. Hemoglobin stable. General surgery and gastroenterology services care appreciated. ID: No acute issues Heme/Onc: Subacute anemia, transfused 1 unit of packed red blood cells with appropriate response unstable hemoglobin. Continue to monitor hemoglobin level. Psych: No acute issues. Miscellaneous: No acute issues. Prophylaxis: Pneumatic compression Diet: Diabetic At this time patient is stable to be transferred to telemetry [place] after ongoing hemodialysis. Transfer discussed with Dr. Brooks. Quality Stroke Does the patient have a stroke diagnosis?: No VTE Prior VTE?: No VTE Risk Level:: Medical - moderate - high VTE Device Contraindication: N/A - Device Ordered VTE Drug Contraindication: Treatment Not Indicated
--- NOTE | 2022-04-26 12:06 | P.PNGI_ITS ---
Subjective Subjective Date of Service: 04/26/22 Critical Care Time (minutes): 0 Comment: Pt seen and examined at bedside in ICU. Currently undergoing HD. Reports fatigue but no abd pain, N,V. Physical Exam Vital Signs: Vital Signs: Last Vital Signs Temp 98.2 F 04/26/22 08:00 Pulse 68 04/26/22 11:00 Resp 17 04/26/22 11:00 BP 107/25 L 04/26/22 11:00 Pulse Ox 100 04/26/22 11:00 O2 Del Method 04/26/22 11:00 O2 Flow Rate 2 04/25/22 23:00 BMI result Body Mass Index 23.8 Gen appear:? Elderly male, pale appearing, fatigued HEENT: no icterus, no cervical lymphadenopathy Chest: No overt resp distress Abd: soft, nontender, nondistended, C tube bulb with maroon blood roughly 25 cc Objective Data Labs 04/26/22 05:14 04/26/22 05:14 Labs: Laboratory Results - last 24 hr 04/25/22 04/25/22 04/25/22 19:00 19:02 19:02 WBC 7.7 RBC 2.16 L Hgb 7.0 L* Hct 22.3 L MCV 103.2 H MCH 32.4 MCHC 31.4 RDW 18.4 H Plt Count 197 MPV 11.5 Immature Gran % (Auto) 0.5 H Neut % (Auto) 84.3 H Lymph % (Auto) 8.1 L Steele % (Auto) 4.3 Eos % (Auto) 2.1 Baso % (Auto) 0.7 Lymph # (Auto) 0.6 L Steele # (Auto) 0.3 Eos # (Auto) 0.2 Baso # (Auto) 0.1 Abs Immat Gran (auto) 0.04 H Absolute Neuts (auto) 6.5 Absolute Nucleated RBC 0.000 Nucleated RBC % (auto) 0.0 VBG pH VBG pCO2 VBG pO2 VBG HCO3 VBG O2 Saturation VBG Base Excess Sodium 136 Potassium 4.9 D Chloride 100 Carbon Dioxide 25 Anion Gap 16 BUN 52 H Creatinine 3.95 H Estim Creat Clear Calc 13.5 Estimated GFR 15 POC Glucose Random Glucose 120 H Lactic Acid Calcium 8.3 L Phosphorus 5.9 H Magnesium 1.9 Total Bilirubin 0.8 AST 68 H ALT 24 Alkaline Phosphatase 135 H Total Protein 5.1 L Albumin 2.0 L Blood Type A Positive Antibody Screen NEGATIVE Crossmatch See Detail Crossmatch ([facility]) See Detail 04/25/22 04/25/22 04/26/22 19:02 19:06 00:09 WBC RBC Hgb Hct MCV MCH MCHC RDW Plt Count MPV Immature Gran % (Auto) Neut % (Auto) Lymph % (Auto) Steele % (Auto) Eos % (Auto) Baso % (Auto) Lymph # (Auto) Steele # (Auto) Eos # (Auto) Baso # (Auto) Abs Immat Gran (auto) Absolute Neuts (auto) Absolute Nucleated RBC Nucleated RBC % (auto) VBG pH 7.49 H VBG pCO2 34 VBG pO2 110 VBG HCO3 26 VBG O2 Saturation 99.0 VBG Base Excess 3.2 Sodium Potassium Chloride Carbon Dioxide Anion Gap BUN Creatinine Estim Creat Clear Calc Estimated GFR POC Glucose 99 Random Glucose Lactic Acid 0.8 Calcium Phosphorus Magnesium Total Bilirubin AST ALT Alkaline Phosphatase Total Protein Albumin Blood Type Antibody Screen Crossmatch Crossmatch ([facility]) 04/26/22 04/26/22 04/26/22 05:14 05:14 05:14 WBC 8.2 RBC 2.58 L Hgb 8.1 L 8.1 L Hct 25.5 L 25.4 L MCV 98.4 H MCH 31.4 MCHC 31.9 RDW 20.0 H Plt Count 214 MPV 11.8 Immature Gran % (Auto) 0.6 H Neut % (Auto) 82.2 H Lymph % (Auto) 9.1 L Steele % (Auto) 4.1 Eos % (Auto) 3.4 Baso % (Auto) 0.6 Lymph # (Auto) 0.8 L Steele # (Auto) 0.3 Eos # (Auto) 0.3 Baso # (Auto) 0.1 Abs Immat Gran (auto) 0.05 H Absolute Neuts (auto) 6.8 Absolute Nucleated RBC 0.000 Nucleated RBC % (auto) 0.0 VBG pH VBG pCO2 VBG pO2 VBG HCO3 VBG O2 Saturation VBG Base Excess Sodium 138 Potassium 4.3 Chloride 100 Carbon Dioxide 22 Anion Gap 20 BUN 58 H Creatinine 4.37 H* Estim Creat Clear Calc 12.2 Estimated GFR 13 POC Glucose Random Glucose 78 Lactic Acid Calcium 8.4 Phosphorus Magnesium Total Bilirubin AST ALT Alkaline Phosphatase Total Protein Albumin Blood Type Antibody Screen Crossmatch Crossmatch ([facility]) 04/26/22 04/26/22 04/26/22 05:14 05:15 06:20 WBC RBC Hgb Hct MCV MCH MCHC RDW Plt Count MPV Immature Gran % (Auto) Neut % (Auto) Lymph % (Auto) Steele % (Auto) Eos % (Auto) Baso % (Auto) Lymph # (Auto) Steele # (Auto) Eos # (Auto) Baso # (Auto) Abs Immat Gran (auto) Absolute Neuts (auto) Absolute Nucleated RBC Nucleated RBC % (auto) VBG pH 7.44 H VBG pCO2 42 VBG pO2 61 VBG HCO3 29 H VBG O2 Saturation 89.0 VBG Base Excess 5.0 Sodium 138 Potassium 4.3 Chloride 100 Carbon Dioxide 23 Anion Gap 19 BUN 59 H Creatinine 4.41 H* Estim Creat Clear Calc 12.1 Estimated GFR 13 POC Glucose 84 Random Glucose 79 Lactic Acid Calcium 8.5 Phosphorus 6.1 H Magnesium 1.9 Total Bilirubin 1.8 H AST 50 H ALT 26 Alkaline Phosphatase 140 H Total Protein 5.3 L Albumin 2.1 L Blood Type Antibody Screen Crossmatch Crossmatch ([facility]) Procedures Date of Service Date of Service: 04/26/22 Progress Note: A&P Assessment and plan (1) Hemobilia: Status: Acute (2) Melena: Status: Acute Plan Acute on chronic anemia and melena likely secondary to hemobilia as noted on EGD yesterday. 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 CT abd with angio pending. LFTs added on. As we do not have IR resources for eval and management here, we are also attempting transfer to tertiary care hospital. Local hospitals in [facility] not open to transfers. Return call from [facility] pending. Time Spent With Patient Time: Total time managing care of this patient today ____ minutes. Quality Stroke Does the patient have a stroke diagnosis?: No VTE Prior VTE?: No VTE Risk Level:: Medical - moderate - high VTE Device Contraindication: N/A - Device Ordered VTE Drug Contraindication: Treatment Not Indicated
--- NOTE | 2022-04-26 12:36 | P.CONNP_ITS ---
History of Present Illness Reason for Consult Consult date: 04/26/22 Reason for consult: ESRD Chief Complaint Chief complaint: GI Bleed History of Present Illness Narrative: ?76 y/o Albanian-speaking male patient with medical history significant for End- stage renal? disease on? dialysis ( MWF),? diabetes mellitus,? PAD,? coronary artery disease status post CABG, post bilateral BKA, anemia of chronic disease,? recent hospitalization for cholecystitis and cholelithiasis s/p IR cholecystectomy bag.? Was admitted to Hospital Medicine on 04/23/2022? blood in the cholecystostomy bag? with complaints of melena and low hemoglobin.?? Today patient? underwent EGD? with Dr Irving/ EGR revealed Normal esophagus, Mild gastritis, and Hemobilia. Post procedure? patient remained hypotensive despite fluid resuscitation? required initiation of vasopressors Usually gets HD on MWF at [facility] Last Hd on 04/23 Pt was admitted on 04/23 but Consult called on 04/25 ;Patient missed HD yesterday yesterday Review of Systems Review of Systems Patient also reports that he had a black stool prior to admission.? He reports that he had 1 episode of black stools.? Today nonbloody.? No melena .? Reports no shortness of breath, no dizziness.? No abdominal pain nausea or vomiting, no diarrhea or constipation, no urinary symptoms and noTrouble with his lower extremity wounds. [facility] Past Medical History Medical History Anemia in chronic kidney disease Below-knee amputation of left lower extremity Below-knee amputation of right lower extremity with complication CVA (cerebral vascular accident) Diabetes Diabetes mellitus, with long-term current use of insulin Diarrhea End stage renal disease End-stage renal disease on hemodialysis Fever of unknown origin High cholesterol History of leg amputation Hypertension Microalbuminuria Mixed hyperlipidemia PAD (peripheral artery disease) Preoperative cardiovascular examination Family History Family History Father Myocardial infarction Mother No problems noted. Surgical History Surgical History History of eye surgery History of laminectomy History of surgery History of surgery on arm S/P bilateral BKA (below knee amputation) S/P CABG x 4 S/P unilateral BKA (below knee amputation) Social History Social History Household Members: Children Housing: House Do you presently have visiting nurse or other home services: Yes (Daily) Alcohol intake: unknown Patient Tobacco Use Status: Never used Tobacco e-Cigarette/Vaping Use: Never Used Second Hand Smoke Exposure: No Advance Directives Date on File: 06/15/21 service: No Current occupational status: retired and disabled Cognitive needs: Yes Hearing needs: No Vision needs: No Meds Allergies Allergy/AdvReac Type Severity Reaction Status Date / Time lisinopril Allergy Intermediate hyperkalemi Verified 04/23/22 15:18 a hydralazine Allergy Unknown Verified 04/23/22 15:18 hydrochlorothiazide Allergy Unknown Verified 04/23/22 15:18 canagliflozin [Invokana] AdvReac Mild back pain Verified 04/23/22 15:18 lidocaine [From LIDOPRIL] AdvReac Mild Cough Verified 04/23/22 15:18 prilocaine [From LIDOPRIL] AdvReac Mild Cough Verified 04/23/22 15:18 Active Medications: Current Medications Acetaminophen (Acetaminophen 325 Mg Tablet) 650 mg PO Q6H PRN PRN Reason: Pain, Mild (Pain Scale 1-3) Last Admin: 04/26/22 09:46 Dose: 650 mg Norepinephrine Bitartrate (Levophed) 8 mg in 250 mls @ 0 mls/hr IV .Q0M [facility]; Protocol Last Titration: 04/26/22 07:20 Dose: Infused Ondansetron HCl (Ondansetron Hcl 4 Mg/2 Ml Vial) 4 mg IVPUSH Q8H PRN PRN Reason: Nausea and Vomiting Pantoprazole Sodium (Pantoprazole Sodium 40 Mg/10 Ml Vial) 40 mg IVPUSH BI D@0630,1630 [facility] Last Admin: 04/26/22 06:30 Dose: 40 mg Sevelamer Carbonate (Sevelamer Carbonate Tablet 800 Mg Tablet) 1,600 mg PO TIDWM [facility] Last Admin: 04/26/22 11:41 Dose: Not Given Sodium Chloride (0.9 % Sodium Chloride Flush 3 Ml Syringe) 3 ml IVFLUSH QSHIFT [facility] Last Admin: 04/26/22 07:14 Dose: Not Given Sodium Hypochlorite (Sodium Hypochlorite 0.125% 473 Ml Solution) 1 appl TOPICAL DAILY [facility] Last Admin: 04/26/22 08:51 Dose: Not Given Ursodiol (Ursodiol 300 Mg Capsule) 300 mg PO BID [facility] Last Admin: 04/26/22 08:51 Dose: 300 mg Home Medications Medication Instructions Recorded Confirmed Last Taken Type sevelamer carbonate 800 mg tablet 1,600 mg PO TIDWM 01/22/20 05/10/22 03/30/22 History amlodipine 5 mg tablet 5 mg PO BEDTIME 06/01/21 05/10/22 03/30/22 History aspirin 81 mg tablet,delayed 1 tab PO DAILY 06/01/21 05/10/22 03/30/22 History release carvedilol 25 mg tablet 1 tab PO BID 06/01/21 05/10/22 03/30/22 History ursodiol 300 mg capsule 1 cap PO BID 06/01/21 05/10/22 03/30/22 History losartan 100 mg tablet 100 mg PO DAILY 01/23/22 05/10/22 03/30/22 History Physical Exam Vital Signs: Last Vital Signs Temp 98.2 F 04/26/22 08:00 Pulse 68 04/26/22 11:00 Resp 17 04/26/22 11:00 BP 107/25 L 04/26/22 11:00 Pulse Ox 100 04/26/22 11:00 O2 Del Method 04/26/22 11:00 O2 Flow Rate 2 04/25/22 23:00 BMI result Body Mass Index 23.8 General: cooperative and no acute distress? Orientation/consciousness: patient oriented x3 Eyes:?? General: appearance normal, both eyes and all related structures Resp:?? Effort & Inspection: normal respiratory effort? Auscultation: clear to auscultation bilaterally Cardio:?? Rate: regular rate? Rhythm: regular rhythm GI:?? Other: ?abdomen is soft, nontender? Palpation (GI): Soft to palpation? Auscultation: normal bowel sounds Skin:?? General skin exam: no rashes or lesions noted Neuro:?? General: patient oriented x3? Cognition (Neuro): normal cognition Extrem:?? Other: ?bilateral below-knee amputation, dressing clean, nontender? General: Yes no pedal edema Results Lab Results 04/26/22 05:14 04/26/22 05:14 Lab results: Chemistry 04/23/22 04/24/22 04/25/22 17:44 06:02 19:02 Sodium 136 137 136 Potassium 3.6 D 3.6 4.9 D Carbon Dioxide 24 29 25 BUN 31 H 39 H 52 H Creatinine 2.03 H 2.69 H 3.95 H Calcium 8.2 L 8.6 8.3 L Phosphorus 5.9 H 04/26/22 04/26/22 05:14 05:14 Sodium 138 138 Potassium 4.3 4.3 Carbon Dioxide BUN 58 H 59 H Creatinine 4.37 H* 4.41 H* Calcium 8.4 8.5 Phosphorus 6.1 H Hematology 04/23/22 04/24/22 04/25/22 17:44 06:02 07:18 WBC 7.7 8.0 Hgb 7.8 L 7.7 L 7.3 L Plt Count 226 D 248 04/25/22 04/26/22 04/26/22 19:02 05:14 05:14 WBC 7.7 8.2 Hgb 7.0 L* 8.1 L 8.1 L Plt Count 197 214 Assessment and Plan (1) ESRD (end stage renal disease): Status: Acute Plan 76-year-old male with ESRD on dialysis, recently diagnosed cholecystitis status post IR cholecystostomy bag presents to the hospital with complaints of melena and low hemoglobin and now with hemobilia Plan: Hemodialysis today Fluid removal based on BP Transfuse PRBCs Epogen HD again tomorrow to keep him on MWF schedule Concur with current management per ICU Time Spent With Patient Time: Total time managing care of this patient today ____ minutes. Procedures Date of Service Date of Service: 05/22/22
[2022-04-26 12:40] LABS: Glucose, Whole Blood 79 mg/dL (60-115)
--- NOTE | 2022-04-26 14:18 | P.CONWO_ITS ---
History of Present Illness Data of Consult Service Date: 04/26/22 Requesting physician: Luciano Brooks Primary Care Provider: Unknown Physician HPI Reason for consult: Buttock wounds The patient is a 76-year-old male who is known to us at wound care recently for pressure wounds to the buttock area. He recently was diagnosed with cholecystitis and had cholecystostomy tube placed and was bleeding via this and as a result became anemic any comes in to the hospital for care for this. In the meantime wound consult is being requested. The wound was somewhat debrided in the clinic last week and [facility] wet to dry dressings were being used. PENDING SALE TO [facility] Medical History Anemia in chronic kidney disease Below-knee amputation of left lower extremity Below-knee amputation of right lower extremity with complication CVA (cerebral vascular accident) Diabetes Diabetes mellitus, with long-term current use of insulin Diarrhea End stage renal disease End-stage renal disease on hemodialysis Fever of unknown origin High cholesterol History of leg amputation Hypertension Microalbuminuria Mixed hyperlipidemia PAD (peripheral artery disease) Preoperative cardiovascular examination Family History Father Myocardial infarction Mother No problems noted. Surgical History History of eye surgery History of laminectomy History of surgery History of surgery on arm S/P bilateral BKA (below knee amputation) S/P CABG x 4 S/P unilateral BKA (below knee amputation) Social History Household Members: Family and Caregiver Housing: House Do you presently have visiting nurse or other home services: Yes (Daily) Alcohol intake: unknown Patient Tobacco Use Status: Never used Tobacco Smoked in Last 30 Days: No e-Cigarette/Vaping Use: Never Used Patient Interested in Nicotine Replacement: No Patient Given Instructions on How to Stop Smoking: No Second Hand Smoke Exposure: No Use of substances other than those prescribed or required for medical reasons: No Currently Displaying Signs/Symptoms of Drug Intoxication Withdrawal: No Any prior treatment program specific to substance use: No Have you been hit, kicked, punched, or otherwise hurt by someone within the past year? If so, by whom?: No Do you feel safe in your current relationship?: No Is there a partner from a previous relationship who is making you feel unsafe now?: No Are you made to feel afraid or neglected: No Spiritual Healthcare Practices: pentecostal Advance Directives: Yes Advance Directives on File: Yes Advance Directives Date on File: 06/15/21 Do you have thoughts of harming others: None Do you have a plan to hurt others: No Plan Recently lost weight without trying: Yes How much weight loss: 2-13 pounds Eating poorly because of decreased appetite: Yes Nutrition screen score: 4 Poor oral hygiene: No service: No Current occupational status: retired and disabled Cognitive needs: Yes Hearing needs: No Vision needs: No Meds Allergies Allergy/AdvReac Type Severity Reaction Status Date / Time lisinopril Allergy Intermediate hyperkalemi Verified 04/23/22 15:18 a hydralazine Allergy Unknown Verified 04/23/22 15:18 hydrochlorothiazide Allergy Unknown Verified 04/23/22 15:18 canagliflozin [Invokana] AdvReac Mild back pain Verified 04/23/22 15:18 lidocaine [From LIDOPRIL] AdvReac Mild Cough Verified 04/23/22 15:18 prilocaine [From LIDOPRIL] AdvReac Mild Cough Verified 04/23/22 15:18 Active Medications: Current Medications Acetaminophen (Acetaminophen 325 Mg Tablet) 650 mg PO Q6H PRN PRN Reason: Pain, Mild (Pain Scale 1-3) Last Admin: 04/26/22 09:46 Dose: 650 mg Norepinephrine Bitartrate (Levophed) 8 mg in 250 mls @ 0 mls/hr IV .Q0M [facility]; Protocol Last Titration: 04/26/22 07:20 Dose: Infused Ondansetron HCl (Ondansetron Hcl 4 Mg/2 Ml Vial) 4 mg IVPUSH Q8H PRN PRN Reason: Nausea and Vomiting Pantoprazole Sodium (Pantoprazole Sodium 40 Mg/10 Ml Vial) 40 mg IVPUSH BID@0630,1630 [facility] Last Admin: 04/26/22 06:30 Dose: 40 mg Sevelamer Carbonate (Sevelamer Carbonate Tablet 800 Mg Tablet) 1,600 mg PO TIDWM [facility] Last Admin: 04/26/22 11:41 Dose: Not Given Sodium Chloride (0.9 % Sodium Chloride Flush 3 Ml Syringe) 3 ml IVFLUSH QSHIFT [facility] Last Admin: 04/26/22 07:14 Dose: Not Given Sodium Hypochlorite (Sodium Hypochlorite 0.125% 473 Ml Solution) 1 appl TOPICAL DAILY [facility] Last Admin: 04/26/22 08:51 Dose: Not Given Ursodiol (Ursodiol 300 Mg Capsule) 300 mg PO BID [facility] Last Admin: 04/26/22 08:51 Dose: 300 mg Home Medications Medication Instructions Recorded Confirmed Last Taken Type sevelamer carbonate 800 mg tablet 1,600 mg PO TIDWM 01/22/20 04/23/22 03/30/22 H istory amlodipine 5 mg tablet 5 mg PO BEDTIME 06/01/21 04/23/22 03/30/22 History aspirin 81 mg tablet,delayed 1 tab PO DAILY 06/01/21 04/23/22 03/30/22 History release carvedilol 25 mg tablet 1 tab PO BID 06/01/21 04/23/22 03/30/22 History ursodiol 300 mg capsule 1 cap PO BID 06/01/21 04/23/22 03/30/22 History losartan 100 mg tablet 100 mg PO DAILY 01/23/22 04/23/22 03/30/22 History vitamin B complex and vitamin C 1 cap PO DAILY 03/30/22 04/23/22 03/30/22 History no.20-folic acid 1 mg capsule (Virt-Caps) Physical Exam Vital Signs and Narrative: Vital Signs: Last Vital Signs Temp 98.2 F 04/26/22 08:00 Pulse 68 04/26/22 11:00 Resp 17 04/26/22 11:00 BP 107/25 L 04/26/22 11:00 Pulse Ox 100 04/26/22 11:00 O2 Del Method 04/26/22 11:00 O2 Flow Rate 2 04/25/22 23:00 BMI result Body Mass Index 23.8 Skin: Other: At the sacral area spreading to the right and the left on the buttock cheeks on the right side the wound is relatively superficial and there is dermal tissue present. On the left side there was a large cavity of necrotic tissue going into the muscle and fat. There is devitalized tissue present on the left side. Surrounding tissue looks okay. Results Labs 04/26/22 05:14 04/26/22 05:14 Labs: Laboratory Results - last 24 hr 04/25/22 04/25/22 04/25/22 19:00 19:02 19:02 MCV 103.2 H MCH 32.4 MCHC 31.4 RDW 18.4 H Plt Count 197 MPV 11.5 Immature Gran % (Auto) 0.5 H Neut % (Auto) 84.3 H Lymph % (Auto) 8.1 L Schleicher % (Auto) 4.3 Eos % (Auto) 2.1 Baso % (Auto) 0.7 Lymph # (Auto) 0.6 L Schleicher # (Auto) 0.3 Eos # (Auto) 0.2 Baso # (Auto) 0.1 Abs Immat Gran (auto) 0.04 H Absolute Neuts (auto) 6.5 Absolute Nucleated RBC 0.000 Nucleated RBC % (auto) 0.0 VBG pH VBG pCO2 VBG pO2 VBG HCO3 VBG O2 Saturation VBG Base Excess Anion Gap 16 Estim Creat Clear Calc 13.5 Estimated GFR 15 POC Glucose Random Glucose 120 H Lactic Acid Calcium 8.3 L Phosphorus 5.9 H Magnesium 1.9 Total Bilirubin 0.8 Direct Bilirubin AST 68 H ALT 24 Alkaline Phosphatase 135 H Total Protein 5.1 L Albumin 2.0 L Blood Type A Positive Antibody Screen NEGATIVE Crossmatch See Detail Crossmatch ([facility]) See Detail 04/25/22 04/25/22 04/26/22 19:02 19:06 00:09 MCV MCH MCHC RDW Plt Count MPV Immature Gran % (Auto) Neut % (Auto) Lymph % (Auto) Schleicher % (Auto) Eos % (Auto) Baso % (Auto) Lymph # (Auto) Schleicher # (Auto) Eos # (Auto) Baso # (Auto) Abs Immat Gran (auto) Absolute Neuts (auto) Absolute Nucleated RBC Nucleated RBC % (auto) VBG pH 7.49 H VBG pCO2 34 VBG pO2 110 VBG HCO3 26 VBG O2 Saturation 99.0 VBG Base Excess 3.2 Anion Gap Estim Creat Clear Calc Estimated GFR POC Glucose 99 Random Glucose Lactic Acid 0.8 Calcium Phosphorus Magnesium Total Bilirubin Direct Bilirubin AST ALT Alkaline Phosphatase Total Protein Albumin Blood Type Antibody Screen Crossmatch Crossmatch ([facility]) 02/23/23 02/23/23 02/23/23 05:14 05:14 05:14 MCV 98.4 H MCH 31.4 MCHC 31.9 RDW 20.0 H Plt Count 214 MPV 11.8 Immature Gran % (Auto) 0.6 H Neut % (Auto) 82.2 H Lymph % (Auto) 9.1 L Schleicher % (Auto) 4.1 Eos % (Auto) 3.4 Baso % (Auto) 0.6 Lymph # (Auto) 0.8 L Schleicher # (Auto) 0.3 Eos # (Auto) 0.3 Baso # (Auto) 0.1 Abs Immat Gran (auto) 0.05 H Absolute Neuts (auto) 6.8 Absolute Nucleated RBC 0.000 Nucleated RBC % (auto) 0.0 VBG pH VBG pCO2 VBG pO2 VBG HCO3 VBG O2 Saturation VBG Base Excess Anion Gap 20 19 Estim Creat Clear Calc 12.2 12.1 Estimated GFR 13 13 POC Glucose Random Glucose 78 79 Lactic Acid Calcium 8.4 8.5 Phosphorus 6.1 H Magnesium 1.9 Total Bilirubin 1.8 H Direct Bilirubin 1.0 H AST 50 H ALT 26 Alkaline Phosphatase 140 H Total Protein 5.3 L Albumin 2.1 L Blood Type Antibody Screen Crossmatch Crossmatch ([facility]) 04/26/22 04/26/22 04/26/22 05:15 06:20 11:44 MCV MCH MCHC RDW Plt Count MPV Immature Gran % (Auto) Neut % (Auto) Lymph % (Auto) Schleicher % (Auto) Eos % (Auto) Baso % (Auto) Lymph # (Auto) Schleicher # (Auto) Eos # (Auto) Baso # (Auto) Abs Immat Gran (auto) Absolute Neuts (auto) Absolute Nucleated RBC Nucleated RBC % (auto) VBG pH 7.44 H VBG pCO2 42 VBG pO2 61 VBG HCO3 29 H VBG O2 Saturation 89.0 VBG Base Excess 5.0 Anion Gap Estim Creat Clear Calc Estimated GFR POC Glucose 84 79 Random Glucose Lactic Acid Calcium Phosphorus Magnesium Total Bilirubin Direct Bilirubin AST ALT Alkaline Phosphatase Total Protein Albumin Blood Type Antibody Screen Crossmatch Crossmatch ([facility]) Assessment and Plan (1) Sacral decubitus ulcer, stage III: Status: Acute Plan Patient is a 76-year-old male with a sacral decubitus ulcer going to the buttock area bilaterally. Left side worse than the right. He has multiple medical issues going on right now to. For the moment [facility]'s wet to dry dressings are best for the entire wound. He will need more surgical debridement of the left cavitary gangrenous tissue. In the meantime he is in the ICU on dialysis but doing a little bit better from his anemia issues. Continue dressings for now and then eventually will consider surgical debridement when he is more stable. When the patient gets discharge have him follow up in Wound Care Clinic. Time Spent With Patient Time: Total time managing care of this patient today ____ minutes.
[2022-04-26] MEDS: iohexoL 350 MG/ML 100 ML INFUS..BTL IV (14:40)
--- NOTE | 2022-04-26 14:58 | P.DS_ITS ---
DS: Providers Provider Date of Service: 04/26/22 Date of admission: 04/23/22 22:29 Date of discharge: 04/26/22 Primary care physician: Unknown Physician Consults: 04/23/22 22:29 Consult to Gastroenterology Routine Consulting Provider: Lisa Irving Reason for consultation: GI bleed Has provider been notified: No 04/23/22 22:34 Consult to General Surgery Routine Consulting Provider: Pool Sheikh Reason for consultation: blood in IR cholecystostomy bag Has provider been notified: No 04/24/22 14:31 Consult to Wound Care Routine Consulting Provider: [facility] Wound Care Management Reason for consultation: sacral wounds Has provider been notified: Yes 04/25/22 17:04 Consult to Nephrology Routine Consulting Provider: Ayad Morelos Reason for consultation: esrd -need HD Has provider been notified: No DS: Diagnosis Discharge Diagnosis (1) Sacral decubitus ulcer, stage III: Status: Acute (2) Acute blood loss anemia: Status: Acute (3) Hemobilia: Status: Acute (4) Atrial fibrillation: Status: Acute (5) Anemia of chronic disease: Status: Acute (6) Hypotension: Status: Acute DS: Summary Hospital Course Hospital Course: 76-year-old male with past medical history of? ESRD on dialysis MWF, diabetes, hyperlipidemia, status post bilateral BKA, anemia of chronic disease, comes to the hospital with complaints of low hemoglobin per dialysis as well as blood in Cholecystostomy bag. ?patient is Upper Sorbian-speaking, history is obtained with the help of an sign language interpreter. ? patient is alert oriented x3, patient reports that he was sent to the hospital because at dialysis they noticed his hemoglobin was low, as well as his home nurse? stated that he has blood in his cholecystostomy back.? Patient also reports that he had a black stool yesterday.? He reports that he had 1 episode of black stools.? Today nonbloody.? No melena today.? Reports no shortness of breath, no dizziness.? No abdominal pain nausea or vomiting, no diarrhea or constipation, no urinary symptoms and noTrouble with his lower extremity wounds. ? On arrival to the ED patient hemodynamically stable with no significant abnormal vitals Labs are significant for? WBC count of 7.7, hemoglobin of 7.8, hematocrit of 24.9 which is around his baseline, potassium 3.6, labs otherwise unremarkable.? Albumin of 2.2, ?stool occult blood positive ?abdomen pelvic CT shows cholecystostomy tube is seen within the decompressed gallbladder, the amount of pericholecystic inflammatory change has improved from 0 study. hospital course: Patient was admitted because patient has melena, now also found to have blood in the cholecystostomy , anemia: Patient had recent cholecystitis and subsequently cholecystostomy tube ( first week of ) which was considered that time because of patient multiple comorbidities cholecystectomy was not considered-patient came to hospital on 04/23/22:for above mentioned symptoms. Subsequently patient was seen by surgery and GI: Patient had EGD done where he found to have hemobilia-subsequently after egd become hypotensive and needed to go to ICU and required vasopressor support for brief time, received 1prbc - currently off vasopressors overnight-blood pressure is maintained as well as hemoglobin is also maintained around 8. as per ICu documentation:New onset atrial fibrillation:? AFib rate control shown on EKG, ? no history of AFib? in chart or at [facility]. Unable to? anticoagulate at this time due to bleed.? It is rate controlled at this time.? consider cardiology kylah harrison on tele. Considering hemobilia discussed with Gi and surgery: Patient will need possible embolization procedure with IR-so patient will be going to the tertiary care hospital for above. Cta was done -results: CT/CT angio abdomen pelvis IMPRESSION: 1. 0.8 cm rounded enhancing structure in the region of the gallbladder neck/cystic duct suspicious for pseudoaneurysm. 2. Extensive vascular calcifications/atherosclerotic disease. 3. 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 4. 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 5. Cholecystostomy tube in place. 6. Small right pleural effusion. 7. Decubitus ulcer overlying the coccyx. No underlying osseous erosive or destructive change. d/w Gi and radiologist possible above changes are old except cystic duct suspicious for pseudoaneurysm-patient is asymptomatic, please consider vascular evaluation if needed . Esrd : on HD , he will need HD tomorrow since had Cta was done iv contrast . Patient is COVID positive but asymptomatic no hypoxia or shortness of breath. Sacral decubitus ulcer, stage III:sacral decubitus ulcer going to the buttock area bilaterally.? Left side worse than the right,?currently Charlotte's wet to dry dressings and Continue dressings for now and then eventually will consider surgical debridement when he is more stable.?consider wound care evaluation in tertiary care hospital. above management discussed with patient and his daughter in detail length, assessment and plan coordination time spent 50 minute. Time Spent with Patient Time attestation: Total time managing care of this patient today ____ minutes. Discharge coordination time: Greater than 30 minutes Quality: Safe Use of Opioids Does Pt have an Active Cancer Diagnosis on the Problem List?: No Quality: Stroke Does the patient have a stroke diagnosis?: No Physical Exam Vital Signs: Vital Signs: Last Vital Signs Temp 98.2 F 04/26/22 08:00 Pulse 68 04/26/22 11:00 Resp 17 04/26/22 11:00 BP 107/25 L 04/26/22 11:00 Pulse Ox 100 04/26/22 11:00 O2 Del Method 04/26/22 11:00 O2 Flow Rate 2 04/25/22 23:00 BMI result Body Mass Index 23.8 Appearance: Alert.? Oriented X3.? not in distress.? cvs: [id number] . res: clear to auscultation ,no rhonchii or wheezing abd: no rebound or guarding ,nt, bs present. has cholecystomy tube draining ext pulses present , no cyanosis . neuro: axo3 , nonfocal. DS: Data Data Completed and Pending Completed studies during hospitalization [Text1]: Procedures Detachment at Left Lower Leg, Mid, Open Approach (06/01/21) Detachment at Right Lower Leg, Mid, Open Approach (03/06/22) Drainage of Gallbladder with Drainage Device, Percutaneous Approach (03/30/22) Excision of Right Upper Leg Muscle, Open Approach (03/30/22) Performance of Urinary Filtration, Intermittent, Less than 6 Hours Per Day (03/30/22) Transfusion of Nonautologous Red Blood Cells into Peripheral Vein, Percutaneous Approach (03/06/22) Labs on day of discharge: Laboratory Results - last 24 hr 04/25/22 04/25/22 04/25/22 19:00 19:02 19:02 WBC 7.7 RBC 2.16 L Hgb 7.0 L* Hct 22.3 L MCV 103.2 H MCH 32.4 MCHC 31.4 RDW 18.4 H Plt Count 197 MPV 11.5 Immature Gran % (Auto) 0.5 H Neut % (Auto) 84.3 H Lymph % (Auto) 8.1 L [place] % (Auto) 4.3 Eos % (Auto) 2.1 Baso % (Auto) 0.7 Lymph # (Auto) 0.6 L [place] # (Auto) 0.3 Eos # (Auto) 0.2 Baso # (Auto) 0.1 Abs Immat Gran (auto) 0.04 H Absolute Neuts (auto) 6.5 Absolute Nucleated RBC 0.000 Nucleated RBC % (auto) 0.0 VBG pH VBG pCO2 VBG pO2 VBG HCO3 VBG O2 Saturation VBG Base Excess Sodium 136 Potassium 4.9 D Chloride 100 Carbon Dioxide 25 Anion Gap 16 BUN 52 H Creatinine 3.95 H Estim Creat Clear Calc 13.5 Estimated GFR 15 POC Glucose Random Glucose 120 H Lactic Acid Calcium 8.3 L Phosphorus 5.9 H Magnesium 1.9 Total Bilirubin 0.8 Direct Bilirubin AST 68 H ALT 24 Alkaline Phosphatase 135 H Total Protein 5.1 L Albumin 2.0 L Blood Type A Positive Antibody Screen NEGATIVE Crossmatch See Detail Crossmatch ([facility]) See Detail 04/25/22 04/25/22 04/26/22 19:02 19:06 00:09 WBC RBC Hgb Hct MCV MCH MCHC RDW Plt Count MPV Immature Gran % (Auto) Neut % (Auto) Lymph % (Auto) [place] % (Auto) Eos % (Auto) Baso % (Auto) Lymph # (Auto) [place] # (Auto) Eos # (Auto) Baso # (Auto) Abs Immat Gran (auto) Absolute Neuts (auto) Absolute Nucleated RBC Nucleated RBC % (auto) VBG pH 7.49 H VBG pCO2 34 VBG pO2 110 VBG HCO3 26 VBG O2 Saturation 99.0 VBG Base Excess 3.2 Sodium Potassium Chloride Carbon Dioxide Anion Gap BUN Creatinine Estim Creat Clear Calc Estimated GFR POC Glucose 99 Random Glucose Lactic Acid 0.8 Calcium Phosphorus Magnesium Total Bilirubin Direct Bilirubin AST ALT Alkaline Phosphatase Total Protein Albumin Blood Type Antibody Screen Crossmatch Crossmatch ([facility]) 04/26/22 04/26/22 04/26/22 05:14 05:14 05:14 WBC 8.2 RBC 2.58 L Hgb 8.1 L 8.1 L Hct 25.5 L 25.4 L MCV 98.4 H MCH 31.4 MCHC 31.9 RDW 20.0 H Plt Count 214 MPV 11.8 Immature Gran % (Auto) 0.6 H Neut % (Auto) 82.2 H Lymph % (Auto) 9.1 L [place] % (Auto) 4.1 Eos % (Auto) 3.4 Baso % (Auto) 0.6 Lymph # (Auto) 0.8 L [place] # (Auto) 0.3 Eos # (Auto) 0.3 Baso # (Auto) 0.1 Abs Immat Gran (auto) 0.05 H Absolute Neuts (auto) 6.8 Absolute Nucleated RBC 0.000 Nucleated RBC % (auto) 0.0 VBG pH VBG pCO2 VBG pO2 VBG HCO3 VBG O2 Saturation VBG Base Excess Sodium 138 Potassium 4.3 Chloride 100 Carbon Dioxide 22 Anion Gap 20 BUN 58 H Creatinine 4.37 H* Estim Creat Clear Calc 12.2 Estimated GFR 13 POC Glucose Random Glucose 78 Lactic Acid Calcium 8.4 Phosphorus Magnesium Total Bilirubin Direct Bilirubin AST ALT Alkaline Phosphatase Total Protein Albumin Blood Type Antibody Screen Crossmatch Crossmatch ([facility]) 04/26/22 04/26/22 04/26/22 05:14 05:15 06:20 WBC RBC Hgb Hct MCV MCH MCHC RDW Plt Count MPV Immature Gran % (Auto) Neut % (Auto) Lymph % (Auto) [place] % (Auto) Eos % (Auto) Baso % (Auto) Lymph # (Auto) [place] # (Auto) Eos # (Auto) Baso # (Auto) Abs Immat Gran (auto) Absolute Neuts (auto) Absolute Nucleated RBC Nucleated RBC % (auto) VBG pH 7.44 H VBG pCO2 42 VBG pO2 61 VBG HCO3 29 H VBG O2 Saturation 89.0 VBG Base Excess 5.0 Sodium 138 Potassium 4.3 Chloride 100 Carbon Dioxide 23 Anion Gap 19 BUN 59 H Creatinine 4.41 H* Estim Creat Clear Calc 12.1 Estimated GFR 13 POC Glucose 84 Random Glucose 79 Lactic Acid Calcium 8.5 Phosphorus 6.1 H Magnesium 1.9 Total Bilirubin 1.8 H Direct Bilirubin 1.0 H AST 50 H ALT 26 Alkaline Phosphatase 140 H Total Protein 5.3 L Albumin 2.1 L Blood Type Antibody Screen Crossmatch Crossmatch ([facility]) 04/26/22 11:44 WBC RBC Hgb Hct MCV MCH MCHC RDW Plt Count MPV Immature Gran % (Auto) Neut % (Auto) Lymph % (Auto) [place] % (Auto) Eos % (Auto) Baso % (Auto) Lymph # (Auto) [place] # (Auto) Eos # (Auto) Baso # (Auto) Abs Immat Gran (auto) Absolute Neuts (auto) Absolute Nucleated RBC Nucleated RBC % (auto) VBG pH VBG pCO2 VBG pO2 VBG HCO3 VBG O2 Saturation VBG Base Excess Sodium Potassium Chloride Carbon Dioxide Anion Gap BUN Creatinine Estim Creat Clear Calc Estimated GFR POC Glucose 79 Random Glucose Lactic Acid Calcium Phosphorus Magnesium Total Bilirubin Direct Bilirubin AST ALT Alkaline Phosphatase Total Protein Albumin Blood Type Antibody Screen Crossmatch Crossmatch ([facility]) Imaging CT scan - abdomen: Radiologist's impression: ITS Impressions Abdomen/Pelvis CT 04/23/22 17:02 IMPRESSION: Cholecystostomy tube is seen within the decompressed gallbladder. The amount of pericholecystic inflammatory changes has improved from the 04/07/2022 study. Abdomen/Pelvis CTA 04/26/22 14:38 Cta: FINDINGS: Vascular findings: Extensive diffuse vascular calcifications. Thoracic aorta: Normal caliber visualized distal descending thoracic aorta with mild vascular calcification. Abdominal aorta: Normal caliber. No aneurysm or dissection. Mild to moderate vascular calcifications. Iliac arteries: Patent bilaterally with extensive calcifications. No hemodynamically significant stenosis. Femoral arteries: Extensive vascular calcifications and mild luminal irregularity/narrowing of the common femoral arteries. Mild to moderate stenosis of the proximal right SFA. Celiac artery: Mild narrowing of the celiac artery origin. Extensive vascular calcifications. Occlusion of a segment of the splenic artery series 6 image 244. There is a 0.8 cm rounded enhancing structure in the region of the neck of the gallbladder/cystic duct on series 6 image 238 suspicious for pseudoaneurysm. Mesenteric arteries: SMA origin is patent. Extensive vascular calcifications. There is occlusion of the SMA branch series 6 image 370. ROBERTO is also occluded distal to the origin series 6 image 45. Additional findings: Small right basilar pleural effusion with passive atelectasis. Mild additional bibasilar atelectasis. Status post median sternotomy. Mitral annular calcifications. Liver: Normal size and attenuation. No liver lesion or biliary ductal dilation. Gallbladder and bile ducts: Cholecystostomy tube in place. Gallbladder is decompressed. Small amount of hyperdense material within the gallbladder lumen likely calcified stone(s), unchanged. Pancreas: No pancreatic lesion or peripancreatic inflammatory change. Spleen: Linear band of hypoattenuation in the spleen consistent with splenic infarct, unchanged. Adrenal glands: Unremarkable. Kidneys: Diminutive size/atrophy. No hydronephrosis. Small low-density benign-appearing right renal cysts, unchanged. No imaging follow-up recommended. No perinephric collections. Bladder: Slightly thick-walled appearance favored due to lack of complete distention. No focal bladder wall thickening. GI tract: Mild colonic diverticulosis. No evidence of acute diverticulitis. No dilated bowel loops. No bowel wall thickening. No free air or ascites. Abdominal wall: Small fat-containing left inguinal hernia. Lymph nodes: No lymphadenopathy. Pelvic viscera: Normal sized prostate gland. Coarse gland calcification. Osseous structures: No acute fracture or suspicious osseous lesion. There is a soft tissue ulcer overlying the coccyx. No underlying osseous erosive or destructive change. Mild diffuse multilevel thoracolumbar spondylosis. Evidence of underlying congenital spinal stenosis. IMPRESSION: 1. 0.8 cm rounded enhancing structure in the region of the gallbladder neck/cystic duct suspicious for pseudoaneurysm. 2. Extensive vascular calcifications/atherosclerotic disease. 3. 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 4. 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 5. Cholecystostomy tube in place. 6. Small right pleural effusion. 7. Decubitus ulcer overlying the coccyx. No underlying osseous erosive or destructive change. Discharge Plan Discharge Patient Disposition: [facility] Discharge Diagnosis: Hemobilia Referrals: Pool Sheikh MD [Physician] - Physician,Sina J [Physician] - 1 Week Discharge Medications: New pantoprazole [Protonix] 40 mg Recon Soln 40 mg IVPUSH BID@0630,1630 Qty: 1 0RF Continued (DME) diabetic shoes 9 See Rx Instructions .Route .MEDSUPPLY Qty: 1 0RF Rx Instructions: As directed (DME) Gel mattress overlay Misc See Rx Instructions .Route Qty: 1 0RF Rx Instructions: As directed atorvastatin 40 mg tablet 40 mg PO BEDTIME 90 Days Qty: 90 1RF acetaminophen [Mapap Arthritis Pain] 650 mg tablet extended release 650 mg PO Q8H PRN (Reason: pain) 30 Days Qty: 90 1RF bumetanide 1 mg tablet 1 mg PO DAILY Qty: 30 6RF fenofibrate nanocrystallized 145 mg tablet 145 mg PO DAILY Qty: 30 6RF ferrous sulfate 325 mg (65 mg iron) tablet 325 mg PO TID 30 Days Qty: 90 6RF insulin glargine U-300 conc 300 unit/mL (3 mL) insulin pen 10 unit subcut BID Qty: 6 0RF (DME) FreeStyle Lite Strips Strip See Rx Instructions .Route Qty: 100 11RF Rx Instructions: Use 1 test strip TID ursodiol 300 mg capsule 1 cap PO BID Virt-Caps 1 mg Capsule 1 cap PO DAILY (DME) Blood Pressure Cuff Misc See Rx Instructions .Route Qty: 1 0RF Rx Instructions: As directed (DME) blood-glucose meter [FreeStyle Lite Meter] Kit See Rx Instructions .Route Qty: 1 0RF Rx Instructions: As directed (DME) lancets [FreeStyle Lancets] 28 gauge misc See Rx Instructions .Route Qty: 100 10RF Rx Instructions: Use 1 lancet once a day sevelamer carbonate 800 mg tablet 1,600 mg PO TIDWM (DME) blood pressure monitor Kit See Rx Instructions .Route Qty: 1 0RF Rx Instructions: As directed Held carvedilol 25 mg tablet 1 tab PO BID Hold Instructions: Resume on 05/02/22. aspirin 81 mg tablet,delayed release (DR/EC) 1 tab PO DAILY Hold Instructions: Resume on 05/17/22. further use as per tertiary care amlodipine 5 mg tablet 5 mg PO BEDTIME Hold Instructions: Resume on 05/02/22. losartan 100 mg tablet 100 mg PO DAILY Hold Instructions: Resume on 05/02/22. Discharge Orders: Discharge Order (Routine); Ordered 04/26/22 Ordered By: Luciano Brooks Diet: Advance to usual diet Activity on Discharge: As tolerated Stand Alone Forms: Patient Portal Discharge page Care Plan Goals: Patient was admitted because patient has melena, now also found to have blood in the cholecystostomy , anemia: Patient had recent cholecystitis and subsequently cholecystostomy tube ( first week of ) which was considered that time because of patient multiple comorbidities cholecystectomy was not considered-patient came to hospital on 04/23/22:for above mentioned symptoms. Subsequently patient was seen by surgery and GI: Patient had EGD done where he found to have hemobilia-subsequently become hypotensive and needed to go to ICU and required vasopressor support for brief time-currently off vasopressors overnight-blood pressure is maintained as well as hemoglobin is also maintained around 8. Considering hemobilia discussed with Gi and surgery: Patient will need possible embolization procedure with IR-that. Cta was done -results pending Esrd : on HD , he will need HD tomorrow since had Cta was done iv contrast . Sacral decubitus ulcer, stage III:sacral decubitus ulcer going to the buttock area bilaterally.? Left side worse than the right,?currently [place]'s wet to dry dressings and Continue dressings for now and then eventually will consider surgical debridement when he is more stable.?consider wound care evaluation in tertiary care hospital. above management discussed with patient with the help of seismic interpreter. Discussed with patient and family both they are agreement with going to the [facility](accepted at [facility] as well as [facility] whichever comes 1[facility].) Health Concerns: As above. Plan of Treatment: As above. Assessment: As above. Patient Instructions: Anemia (ED) Discharge Date/Time: 04/26/22 19:15
--- NOTE | 2022-04-26 15:11 | MHC.CM.PN ---
Pt to be transfered to a tertiary center for continued care: MD to contact pt's dtr once an accepting facility has been found.
[2022-04-26 18:53] LABS: Glucose, Whole Blood 159 mg/dL (60-115)
== END 2022-04-26 19:15 | disposition short-term general hospital (02) | DRG 444 ==
LOC: HO.ED 19:49 → HO.EDOVER 22:44 → HO.IMC 04-24 10:02 → HO.ICU 04-25 19:32 → HO.IMC 05-11 15:04
PROVIDERS: Internal Medicine; Internal Medicine Pulmonary Disease; Registered Nurse Community Health; Admitting Provider Internal Medicine; Emergency Provider Emergency Medicine; PCP Internal Medicine; Visit Provider Internal Medicine
PROC: 0DJ08ZZ Inspection of Upper Intestinal Tract, Via Natural or Artificial Opening Endoscopic (ICD-10-PCS; CPT 43235; principal; 2022-04-25 14:20)
DX: K83.8 Other specified diseases of biliary tract (principal); K29.71 Gastritis, unspecified, with bleeding; L89.134 Pressure ulcer of right lower back, stage 4; L89.144 Pressure ulcer of left lower back, stage 4; L89.154 Pressure ulcer of sacral region, stage 4; N18.6 End stage renal disease; U07.1 COVID-19; I12.0 Hypertensive chronic kidney disease with stage 5 chronic kidney disease or end stage renal disease; N28.0 Ischemia and infarction of kidney; D62 Acute posthemorrhagic anemia; J90 Pleural effusion, not elsewhere classified; K80.10 Calculus of gallbladder with chronic cholecystitis without obstruction; D63.1 Anemia in chronic kidney disease; I95.81 Postprocedural hypotension; I48.91 Unspecified atrial fibrillation; E11.51 Type 2 diabetes mellitus with diabetic peripheral angiopathy without gangrene; E11.22 Type 2 diabetes mellitus with diabetic chronic kidney disease; E78.2 Mixed hyperlipidemia; D73.5 Infarction of spleen; Z99.2 Dependence on renal dialysis; Z89.512 Acquired absence of left leg below knee; Z89.511 Acquired absence of right leg below knee; Z95.1 Presence of aortocoronary bypass graft; Z97.8 Presence of other specified devices; Z86.73 Personal history of transient ischemic attack (TIA), and cerebral infarction without residual deficits; Z88.8 Allergy status to other drugs, medicaments and biological substances; Z79.4 Long term (current) use of insulin; Z79.82 Long term (current) use of aspirin; Z79.899 Other long term (current) drug therapy
CPT/HCPCS: 43235; 36415; 74174; 74176; 80048; 80053; 80076; 82248; 82272; 82803; 82947; 83605; 83690; 83735; 84100; 85014; 85018; 85025; 86850; 86900; 86901; 86920; 86922; 87040; 87635; 90999; 93005; 96374; 99284; 99285; J0171; J0885; J2370; P9016; Q9967

== ENCOUNTER 2022-05-10 10:18 | Inpatient (IN) | payer OTHER, SELFPAY ==
--- NOTE | ~2022-05-10 | XR_ITS ---
EXAMINATION: XR CHEST CLINICAL INFORMATION: Shortness of breath COMPARISON: 03/30/2022 TECHNIQUE: Frontal view of the chest was obtained. FINDINGS: Since the prior study there has been a significant increase in a right pleural effusion which is small to moderate in size. No left-sided effusion is seen. Again noted is mild cardiomegaly and median sternotomy. Mild upper zone redistribution suggests possible pulmonary vascular congestion. Surgical clips are present at the GE junction. Extensive vascular calcification is again noted. XR/XR chest 1V IMPRESSION: Increase in size of right pleural effusion which is small to moderate in size. Possible mild pulmonary vascular congestion.
--- NOTE | ~2022-05-10 | CT_ITS ---
EXAMINATION: CT HEAD WITHOUT CONTRAST CLINICAL INFORMATION: Altered mental status. COMPARISON: CT head 03/10/2022. TECHNIQUE: Contiguous axial imaging was performed from the skull base to vertex without intravenous administration of contrast. This CT examination was performed using dose optimization techniques as appropriate, variously including the following: *Automated exposure control *Adjustment of mA and/or kV according to patient size (this includes techniques or standardized protocols for targeted exams where dose is matched to indication/reason for exam; i.e. extremities or head) *Use of iterative reconstruction technique DLP: 627 mGy-cm FINDINGS: There is no acute intracranial hemorrhage or abnormal extra-axial collection. There is a chronic right cerebellar infarct and chronic watershed infarcts within the left cerebral hemisphere. Numerous foci of hypoattenuation are visualized within the periventricular white matter most likely represent a chronic manifestation of small vessel ischemia. The calvarium and skull base are intact. Partial opacification of the mastoid air cells. The right maxillary sinus is completely opacified and there is mild to moderate paranasal sinus disease within the left maxillary sinus. Globes and orbits are grossly symmetric. CT/CT head/brain wo IV con IMPRESSION: No substantial change when compared to prior imaging from 03/10/2022. There is a chronic right cerebellar infarct and chronic watershed infarcts within the left cerebral hemisphere. Numerous chronic small vessel ischemic changes are visualized within the periventricular white matter. Grossly no evidence of acute territorial infarct or hemorrhage.
[2022-05-10 10:56] VITALS: BP 112/50; BP 152/63; PULSE 62; PULSE 66; RESP 15; O2SAT 95; O2SAT 99; BMI 26.9
[2022-05-10 11:03] LABS: MANUAL DIFF FLAG NO
[2022-05-10 11:09] LABS: Basophils Percent Auto 0.4 % (0-2); Eosinophils Absolute Auto 0.1 X10*3/uL (0.0-0.4); Eosinophils Percent Auto 1.3 % (0-4); Hematocrit 37.9 % (42.0-52.0); Hemoglobin 11.5 g/dl (14.0-18.0); Imm Gran Abs Auto 0.06 X10*3/uL (0.00-0.03); Imm Gran Pct Auto 0.8 % (0.0-0.4); Lymphocytes Absolute Auto 0.7 X10*3/uL (1.2-4.9); Lymphocytes Percent Auto 9.4 % (20-40); Mean Corpuscular HGB Conc 30.3 g/dl (31.0-36.0); Mean Corpuscular Hemoglobin 31.8 pg (27.0-33.0); Mean Corpuscular Volume 104.7 fL (80.0-98.0); Monocytes Absolute Auto 0.3 X10*3/uL (0.1-1.2); Monocytes Percent Auto 3.6 % (2-11); NRBC Pct Auto 0.3 /100WBC (0.0-0.2); Neutrophils Absolute Auto 6.6 x10*3/uL (2.0-8.3); Neutrophils Percent Auto 84.5 % (45-73); Platelet Count 180 X10*3/uL (160-400); Red Blood Count 3.62 X10*6/uL (4.60-5.80); Red Cell Distribution Width 19.5 % (11.0-16.0); White Blood Count 7.8 X10*3/uL (4.8-10.8)
[2022-05-10 11:13] LABS: INTERNATIONAL NORM RATIO 1.2 (0.9-1.1); Prothrombin Time 13.4 SEC (10.0-13.1)
--- NOTE | 2022-05-10 12:57 | ED.GENADULT ---
HPI - General Adult General Chief complaint: General Medical Stated complaint: LOW O2 SAT 90% ON RA FROM SNF PER EMS Time Seen by Provider: 05/10/22 10:47 History of Present Illness HPI narrative: Patient is 76 years old history end-stage renal disease on dialysis normally get dialyzed Saturday. History of diabetes history of peripheral vascular disease status post CABG status post BKA on left side history of chronic wounds to the back history of cholecystitis status post IR drain. History of CVA, history of hypercholesterolemia. Patient presented today from Wound Care for possible decrease in O2 saturation. Patient does not have any specific complaints. No chest pain no diaphoresis positive generalized malaise Related Data Home Medications Medication Instructions Recorded Confirmed sevelamer carbonate 800 mg tablet 1,600 mg PO TIDWM 01/22/20 05/10/22 amlodipine 5 mg tablet 5 mg PO BEDTIME 06/01/21 05/10/22 aspirin 81 mg tablet,delayed 1 tab PO DAILY 06/01/21 05/10/22 release carvedilol 25 mg tablet 1 tab PO BID 06/01/21 05/10/22 ursodiol 300 mg capsule 1 cap PO BID 06/01/21 05/10/22 losartan 100 mg tablet 100 mg PO DAILY 01/23/22 05/10/22 Previous Rx's Medication Instructions Recorded diabetic shoes #1 ea 08/15/20 blood-glucose meter (FreeStyle #1 ea 04/04/21 Lite Meter kit) lancets 28 gauge (FreeStyle #100 ea 04/04/21 Lancets) miscellaneous medical supply #1 ea 04/04/21 (Blood Pressure Cuff) Gel mattress overlay #1 ea 04/17/21 blood pressure monitor #1 ea 05/02/21 atorvastatin 40 mg tablet 40 mg PO BEDTIME 90 days #90 tabs 12/28/21 bumetanide 1 mg tablet 1 mg PO DAILY #30 tabs 02/27/22 fenofibrate nanocrystallized 145 145 mg PO DAILY #30 tabs 02/27/22 mg tablet ferrous sulfate 325 mg (65 mg 325 mg PO TID 30 days #90 tabs 02/27/22 iron) tablet insulin glargine U-300 conc 300 10 unit (0.0333 mL) subcut BID #6 03/20/22 unit/mL (3 mL) subcutaneous pen mL blood sugar diagnostic (FreeStyle #100 ea 03/30/22 Lite Strips) pantoprazole 40 mg intravenous 40 mg IVPUSH BID@0630,1630 #1 ea 04/26/22 solution (Protonix) acetaminophen 650 mg 650 mg PO Q8H PRN pain 30 days #90 04/29/22 tablet,extended release (Mapap tabs Arthritis Pain) vitamin B complex and vitamin C 1 cap PO DAILY #90 caps 04/29/22 no.20-folic acid 1 mg capsule (Virt-Caps) Allergies Allergy/AdvReac Type Severity Reaction Status Date / Time lisinopril Allergy Intermediate hyperkalemi Verified 04/23/22 15:18 a hydralazine Allergy Unknown Verified 04/23/22 15:18 hydrochlorothiazide Allergy Unknown Verified 04/23/22 15:18 canagliflozin [Invokana] AdvReac Mild back pain Verified 04/23/22 15:18 lidocaine [From LIDOPRIL] AdvReac Mild Cough Verified 04/23/22 15:18 prilocaine [From LIDOPRIL] AdvReac Mild Cough Verified 04/23/22 15:18 Review of Systems Review of Systems: Unable to obtain review systems secondary to patient's condition [facility] Past Medical History Attestation statement: The following information was validated with the patient. Medical History Anemia in chronic kidney disease Below-knee amputation of left lower extremity Below-knee amputation of right lower extremity with complication CVA (cerebral vascular accident) Diabetes Diabetes mellitus, with long-term current use of insulin Diarrhea End stage renal disease End-stage renal disease on hemodialysis Fever of unknown origin High cholesterol History of leg amputation Hypertension Microalbuminuria Mixed hyperlipidemia PAD (peripheral artery disease) Preoperative cardiovascular examination Surgical History History of eye surgery History of laminectomy History of surgery History of surgery on arm S/P bilateral BKA (below knee amputation) S/P CABG x 4 S/P unilateral BKA (below knee amputation) Family History Family History Father Myocardial infarction Mother No problems noted. Social History Social History Household Members: Family and Caregiver Housing: House Do you presently have visiting nurse or other home services: Yes (Daily) Alcohol intake: unknown Patient Tobacco Use Status: Never used Tobacco e-Cigarette/Vaping Use: Never Used Second Hand Smoke Exposure: No Advance Directives: Yes Advance Directives on File: Yes Advance Directives Date on File: 06/15/21 service: No Current occupational status: retired and disabled Cognitive needs: Yes Hearing needs: No Vision needs: No Physical Exam ED Vital Signs: Vital Signs - 24 hr 05/10/22 10:56 05/10/22 13:09 05/10/22 14:45 Temperature 94.5 F L Pulse Rate 62 62 Respiratory Rate 15 13 Blood Pressure 152/63 H 138/54 L Pulse Oximetry 95 97 Oxygen Delivery Method Room Air Room Air BMI result Body Mass Index 26.9 Appearance: Alert. Oriented to self only. Not oriented to place or time. No acute distress. Eyes: Pupils equal, round and reactive to light. ENT: Pharynx normal. Neck: Normal inspection. Neck supple. No lymph nodes noted. No crepitus CVS: Normal heart rate and rhythm. Pulses normal. Normal S1 and S2 Respiratory: No respiratory distress. Breath sounds normal. No Wheezing. No rales Abdomen: Soft and nontender. No rigidity. No distention. good BS x4 Skin: Positive decubital ulcer noted. Approximately 5 cm x 3 cm in size. Down to muscle. With granulation tissue noted at the base. Extremities: Status post below the knee amputation on the left. The wound appears to be healing. There is no gross redness at the margin there is no warmth to touch. There is no gross discharge noted. Neuro: Oriented to self only Medical Decision Making Medical Decision Making MDM Narrative: Positive generalized malaise weakness question decreased O2 sat at the wound care. Patient's O2 sat in the emergency department was 95% on room air. Temperature is low. Question if this is new. Patient's wound in the back and in the stump appeared to be intact. Not to BD acute cause. Patient electrolytes are pending. Will get an EKG. We will monitor carefully Differential Diagnosis Infection, urinary tract infection, skin infection, hypothyroid, flu RSV COVID, congestive heart failure, end-stage renal disease needing up to shortness of breath. Electrolyte abnormality. Pneumonia Lab Data [facility] Lab Attestation statement: I reviewed the patient's lab results. 05/10/22 10:49 05/10/22 10:49 Labs: Lab Results 05/10/22 05/10/22 05/10/22 Range/Units 10:49 10:49 11:48 WBC 7.8 (4.8-10.8) X10*3/uL RBC 3.62 L D (4.60-5.80) X10*6/uL Hgb 11.5 L D (14.0-18.0) g/dl Hct 37.9 L D (42.0-52.0) % MCV 104.7 H (80.0-98.0) fL MCH 31.8 (27.0-33.0) pg MCHC 30.3 L (31.0-36.0) g/dl RDW 19.5 H (11.0-16.0) % Plt Count 180 (160-400) X10*3/uL MPV 11.0 (9.4-12.4) fL Immature Gran % (Auto) 0.8 H (0.0-0.4) % Neut % (Auto) 84.5 H (45-73) % Lymph % (Auto) 9.4 L (20-40) % [place] % (Auto) 3.6 (2-11) % Eos % (Auto) 1.3 (0-4) % Baso % (Auto) 0.4 (0-2) % Lymph # (Auto) 0.7 L (1.2-4.9) X10*3/uL [place] # (Auto) 0.3 (0.1-1.2) X10*3/uL Eos # (Auto) 0.1 (0.0-0.4) X10*3/uL Baso # (Auto) 0.0 (0.0-0.2) X10*3/uL Abs Immat Gran (auto) 0.06 H (0.00-0.03) X10*3/uL Absolute Neuts (auto) 6.6 (2.0-8.3) x10*3/uL Absolute Nucleated RBC 0.020 H (0.0-0.012) X10*3/uL Nucleated RBC % (auto) 0.3 H (0.0-0.2) /100WBC PT 13.4 H (10.0-13.1) SEC INR 1.2 H (0.9-1.1) VBG pH (7.32-7.43) VBG pCO2 mmHg VBG pO2 mmHg VBG HCO3 (22-26) mmol/L VBG O2 Saturation % VBG Base Excess mmol/L Sodium 134 L (135-145) mmol/L Potassium 4.7 (3.3-5.1) mmol/L Chloride 99 (96-108) mmol/L Carbon Dioxide 22 (22-29) mmol/L Anion Gap 18 (12-20) BUN 31 H (9-16) mg/dL Creatinine 2.46 H (0.5-1.4) mg/dL Estim Creat Clear Calc 16.9 Estimated GFR 26 Fasting Glucose 189 H (60-99) mg/dL Calcium 8.5 (8.4-10.2) mg/dL Magnesium 1.9 (1.6-2.6) mg/dL Total Bilirubin 0.6 (0.0-1.0) mg/dL AST 31 (5-37) U/L ALT 19 (0-40) U/L Alkaline Phosphatase 97 (39-117) U/L Troponin I High Sens (<3.5-35.0) ng/L B-Natriuretic Peptide (<100) pg/mL Total Protein 5.8 L (6.5-8.0) g/dL Albumin 2.4 L (3.5-5.0) g/dL TSH (0.32-4.0) uIU/mL Influenza Type A (PCR) (Negative) Influenza Type B (PCR) (Negative) RSV RNA Qual (PCR) (Negative) SARS-CoV-2 RNA (RT-PCR) (Negative) 05/10/22 05/10/22 05/10/22 Range/Units 13:02 14:32 14:32 WBC (4.8-10.8) X10*3/uL RBC (4.60-5.80) X10*6/uL Hgb (14.0-18.0) g/dl Hct (42.0-52.0) % MCV (80.0-98.0) fL MCH (27.0-33.0) pg MCHC (31.0-36.0) g/dl RDW (11.0-16.0) % Plt Count (160-400) X10*3/uL MPV (9.4-12.4) fL Immature Gran % (Auto) (0.0-0.4) % Neut % (Auto) (45-73) % Lymph % (Auto) (20-40) % [place] % (Auto) (2-11) % Eos % (Auto) (0-4) % Baso % (Auto) (0-2) % Lymph # (Auto) (1.2-4.9) X10*3/uL [place] # (Auto) (0.1-1.2) X10*3/uL Eos # (Auto) (0.0-0.4) X10*3/uL Baso # (Auto) (0.0-0.2) X10*3/uL Abs Immat Gran (auto) (0.00-0.03) X10*3/uL Absolute Neuts (auto) (2.0-8.3) x10*3/uL Absolute Nucleated RBC (0.0-0.012) X10*3/uL Nucleated RBC % (auto) (0.0-0.2) /100WBC PT (10.0-13.1) SEC INR (0.9-1.1) VBG pH (7.32-7.43) VBG pCO2 mmHg VBG pO2 mmHg VBG HCO3 (22-26) mmol/L VBG O2 Saturation % VBG Base Excess mmol/L Sodium (135-145) mmol/L Potassium (3.3-5.1) mmol/L Chloride (96-108) mmol/L Carbon Dioxide (22-29) mmol/L Anion Gap (12-20) BUN (9-16) mg/dL Creatinine (0.5-1.4) mg/dL Estim Creat Clear Calc Estimated GFR Fasting Glucose (60-99) mg/dL Calcium 8.6 (8.4-10.2) mg/dL Magnesium (1.6-2.6) mg/dL Total Bilirubin (0.0-1.0) mg/dL AST (5-37) U/L ALT (0-40) U/L Alkaline Phosphatase (39-117) U/L Troponin I High Sens 26.1 D (<3.5-35.0) ng/L B-Natriuretic Peptide 2975 H (<100) pg/mL Total Protein (6.5-8.0) g/dL Albumin (3.5-5.0) g/dL TSH 3.98 (0.32-4.0) uIU/mL Influenza Type A (PCR) (Negative) Influenza Type B (PCR) (Negative) RSV RNA Qual (PCR) (Negative) SARS-CoV-2 RNA (RT-PCR) (Negative) 05/10/22 05/10/22 Range/Units 14:35 15:31 WBC (4.8-10.8) X10*3/uL RBC (4.60-5.80) X10*6/uL Hgb (14.0-18.0) g/dl Hct (42.0-52.0) % MCV (80.0-98.0) fL MCH (27.0-33.0) pg MCHC (31.0-36.0) g/dl RDW (11.0-16.0) % Plt Count (160-400) X10*3/uL MPV (9.4-12.4) fL Immature Gran % (Auto) (0.0-0.4) % Neut % (Auto) (45-73) % Lymph % (Auto) (20-40) % [place] % (Auto) (2-11) % Eos % (Auto) (0-4) % Baso % (Auto) (0-2) % Lymph # (Auto) (1.2-4.9) X10*3/uL [place] # (Auto) (0.1-1.2) X10*3/uL Eos # (Auto) (0.0-0.4) X10*3/uL Baso # (Auto) (0.0-0.2) X10*3/uL Abs Immat Gran (auto) (0.00-0.03) X10*3/uL Absolute Neuts (auto) (2.0-8.3) x10*3/uL Absolute Nucleated RBC (0.0-0.012) X10*3/uL Nucleated RBC % (auto) (0.0-0.2) /100WBC PT (10.0-13.1) SEC INR (0.9-1.1) VBG pH 7.43 (7.32-7.43) VBG pCO2 39 mmHg VBG pO2 211 mmHg VBG HCO3 26 (22-26) mmol/L VBG O2 Saturation 99.0 % VBG Base Excess 2.3 mmol/L Sodium (135-145) mmol/L Potassium (3.3-5.1) mmol/L Chloride (96-108) mmol/L Carbon Dioxide (22-29) mmol/L Anion Gap (12-20) BUN (9-16) mg/dL Creatinine (0.5-1.4) mg/dL Estim Creat Clear Calc Estimated GFR Fasting Glucose (60-99) mg/dL Calcium (8.4-10.2) mg/dL Magnesium (1.6-2.6) mg/dL Total Bilirubin (0.0-1.0) mg/dL AST (5-37) U/L ALT (0-40) U/L Alkaline Phosphatase (39-117) U/L Troponin I High Sens (<3.5-35.0) ng/L B-Natriuretic Peptide (<100) pg/mL Total Protein (6.5-8.0) g/dL Albumin (3.5-5.0) g/dL TSH (0.32-4.0) uIU/mL Influenza Type A (PCR) NEGATIVE (Negative) Influenza Type B (PCR) NEGATIVE (Negative) RSV RNA Qual (PCR) NEGATIVE (Negative) SARS-CoV-2 RNA (RT-PCR) NEGATIVE (Negative) Critical Care Time Critical Care Time Critical Care Time: Yes Total Critical Care Time: 40 Attestation: I have personally provided 40 minutes of critical care time exclusive of time spent on separately billable procedures. Time includes review of lab data, radiology results, discussion with consultants, and monitoring for potential decompensation. Interventions were performed as documented above Discharge Plan Discharge Clinical Impression: Acute alteration in mental status
--- NOTE | 2022-05-10 12:58 | ECG_ITS ---
Test Reason : altered mental Blood Pressure : / mmHG Vent. Rate : 056 BPM Atrial Rate : 000 BPM P-R Int : 000 ms QRS Dur : 154 ms QT Int : 486 ms P-R-T Axes : 000 -50 157 degrees QTc Int : 468 ms Atrial fibrillation with slow ventricular response Left axis deviation Left bundle branch block Abnormal ECG When compared with ECG of 25-APR-2022 20:33, QRS duration has increased Referred By: Swati Lackey Electronically Signed By:CLAIRE COFFEY
[2022-05-10 13:09] VITALS: TEMP 34.7
[2022-05-10 13:32] LABS: B Type Natriuretic Peptide 2975 pg/mL (<100)
--- NOTE | 2022-05-10 13:58 | PHA.MEDREC ---
Pharmacy Consult ? Medication Reconciliation Pharmacy has completed the medication reconciliation.
[2022-05-10 14:40] LABS: Venous Blood Gas Refer to POC result
[2022-05-10 14:42] LABS: VBG Base Excess 2.3 mmol/L; VBG HCO3 26 mmol/L (22-26); VBG pCO2 39 mmHg; VBG pH 7.43 (7.32-7.43); VBG pO2 211 mmHg
[2022-05-10 14:45] VITALS: BP 138/54; PULSE 62; RESP 13; O2SAT 97
[2022-05-10 14:59] LABS: Troponin-I High Sensitivity 26.1 ng/L (<3.5-35.0)
[2022-05-10 15:10] LABS: Calcium 8.6 mg/dL (8.4-10.2)
[2022-05-10 15:11] LABS: Alanine Aminotransferase 19 U/L (0-40); Albumin Level 2.4 g/dL (3.5-5.0); Alkaline Phosphatase 97 U/L (39-117); Anion Gap 18 (12-20); Aspartate Amino Transferase 31 U/L (5-37); Bilirubin Total 0.6 mg/dL (0.0-1.0); Blood Urea Nitrogen 31 mg/dL (9-16); Calcium 8.5 mg/dL (8.4-10.2); Carbon Dioxide 22 mmol/L (22-29); Chloride 99 mmol/L (96-108); Creatinine Clr Calc Pharmacy 16.9; Estimated Glomerular Filt Rate 26; Glucose Fasting 189 mg/dL (60-99); Magnesium 1.9 mg/dL (1.6-2.6); Potassium 4.7 mmol/L (3.3-5.1); Sodium 134 mmol/L (135-145); Total Protein 5.8 g/dL (6.5-8.0)
[2022-05-10 16:21] LABS: Influenza A PCR NEGATIVE (Negative); Influenza B PCR NEGATIVE (Negative); Resp Syncy Virus RNA Qual PCR NEGATIVE (Negative); SARS COV2 PCR INHOUSE NEGATIVE (Negative)
--- NOTE | 2022-05-10 16:27 | P.HPHOSP_ITS ---
History of Present Illness Date of Service: 05/10/22 Chief Complaint: jerrica 76 years old history end-stage renal disease on dialysis normally get dialyzed Saturday W cholecystectomy to saturday.? History of diabetes history of peripheral vascular disease status post CABG status post BKA on left side histo ry of chronic wounds to the back history of cholecystitis status post IR drain.? History of CVA, history of hypercholesterolemia. Patient presented today from Wound Care for possible decrease in O2 saturation.? Patient does not have any specific complaints.? No chest pain no diaphoresis positive generalized malaise. Patient is status post right BKA; status post percutaneous cholecystostomy tube with a large stage IV sacral decubiti. Review of Systems Review of Systems: Unable to obtain [facility] Medical History Anemia in chronic kidney disease Below-knee amputation of left lower extremity Below-knee amputation of right lower extremity with complication CVA (cerebral vascular accident) Diabetes Diabetes mellitus, with long-term current use of insulin Diarrhea End stage renal disease End-stage renal disease on hemodialysis Fever of unknown origin High cholesterol History of leg amputation Hypertension Microalbuminuria Mixed hyperlipidemia PAD (peripheral artery disease) Preoperative cardiovascular examination Family History Father Myocardial infarction Mother No problems noted. Surgical History History of eye surgery History of laminectomy History of surgery History of surgery on arm S/P bilateral BKA (below knee amputation) S/P CABG x 4 S/P unilateral BKA (below knee amputation) Social History Household Members: Children Housing: House Do you presently have visiting nurse or other home services: Yes (Daily) Alcohol intake: unknown Patient Tobacco Use Status: Never used Tobacco e-Cigarette/Vaping Use: Never Used Second Hand Smoke Exposure: No Use of substances other than those prescribed or required for medical reasons: No Currently Displaying Signs/Symptoms of Drug Intoxication Withdrawal: No Do you feel safe in your current relationship?: Yes Is there a partner from a previous relationship who is making you feel unsafe now?: No Are you made to feel afraid or neglected: No Advance Directives: Yes Advance Directives on File: Yes Advance Directives Date on File: 06/15/21 Do you have thoughts of harming others: None Do you have a plan to hurt others: No Plan Recently lost weight without trying: Unsure Nutrition Risks: No Nutritional Risk Poor oral hygiene: No service: No Current occupational status: retired and disabled Cognitive needs: Yes Hearing needs: No Vision needs: No Meds Allergies Allergy/AdvReac Type Severity Reaction Status Date / Time lisinopril Allergy Intermediate hyperkalemi Verified 04/23/22 15:18 a hydralazine Allergy Unknown Verified 04/23/22 15:18 hydrochlorothiazide Allergy Unknown Verified 04/23/22 15:18 canagliflozin [Invokana] AdvReac Mild back pain Verified 04/23/22 15:18 lidocaine [From LIDOPRIL] AdvReac Mild Cough Verified 04/23/22 15:18 prilocaine [From LIDOPRIL] AdvReac Mild Cough Verified 04/23/22 15:18 Active Medications: Current Medications Amlodipine Besylate (Amlodipine Besylate 5 Mg Tablet) 5 mg PO BEDTIME HANH; Protocol Aspirin (Aspirin Enteric Coated 81 Mg Tablet.Dr) 81 mg PO DAILY [facility]ANH Atorvastatin Calcium (Atorvastatin Calcium 40 Mg Tablet) 40 mg PO BEDTIME [facility]ANH Bumetanide (Bumetanide 1 Mg Tablet) 1 mg PO DAILY [facility]ANH; Protocol Carvedilol (Carvedilol 25 Mg Tablet) 25 mg PO BID [facility]ANH; Protocol Glucose (Glucose Gel 15 Gm Gel..Gram.) 15 gm PO Q15M PRN; Protocol PRN Reason: per Hypoglycemia Standing Ord. Heparin Sodium (Porcine) (Heparin Sodium,Porcine 5,000 Unit/Ml Vial) 5,000 unit SUBCUT Q12H [facility] Dextrose (D10) 250 mls @ 750 mls/hr IV Q15M PRN; Protocol PRN Reason: per Hypoglycemia Standing Ord. Insulin Human Lispro (Insulin Lispro 100 Unit/Ml 3 Ml Vial) 0 unit SUBCUT QIDACHS HANH; Protocol Losartan Potassium (Losartan Potassium 50 Mg Tablet) 100 mg PO DAILY [facility]AN[facility]; Protocol Multivitamins/Vitamin C (Multivitamin Tablet) 1 tab PO DAILY [facility] Non-Formulary Medication (Acetaminophen [Mapap Arthritis Pain]) 650 mg PO Q8H PRN PRN Reason: pain Non-Formulary Medication (Fenofibrate Nanocrystallized) 145 mg PO DAILY [facility] Non-Formulary Medication (Ferrous Sulfate) 325 mg PO TID [facility] Non-Formulary Medication (Insulin Glargine U-300 Conc) 10 unit SUBCUT BID [facility] Pantoprazole Sodium (Pantoprazole Sodium 40 Mg/10 Ml Vial) 40 mg IVPUSH BI D@0630,0520 [facility] Pharmacy Consult (Consult Rx Perform Med Rec) 1 each MISCELLANE ONCE PRN PRN Reason: Consult order Sevelamer Carbonate (Sevelamer Carbonate Tablet 800 Mg Tablet) 1,600 mg PO TIDWM [facility] Sodium Chloride (0.9 % Sodium Chloride Flush 3 Ml Syringe) 3 ml IVFLUSH QSHIFT [facility] Ursodiol (Ursodiol 300 Mg Capsule) 300 mg PO BID [facility] Home Medications Medication Instructions Recorded Confirmed Last Taken Type sevelamer carbonate 800 mg tablet 1,600 mg PO TIDWM 01/22/20 05/10/22 03/30/22 History amlodipine 5 mg tablet 5 mg PO BEDTIME 06/01/21 05/10/22 03/30/22 History aspirin 81 mg tablet,delayed 1 tab PO DAILY 06/01/21 05/10/22 03/30/22 History release carvedilol 25 mg tablet 1 tab PO BID 06/01/21 05/10/22 03/30/22 History ursodiol 300 mg capsule 1 cap PO BID 06/01/21 05/10/22 03/30/22 History losartan 100 mg tablet 100 mg PO DAILY 01/23/22 05/10/22 03/30/22 History Physical Exam Vital Signs and Narrative: Vital Signs: Last Vital Signs Temp 94.5 F L 05/10/22 13:09 Pulse 62 05/10/22 14:45 Resp 13 05/10/22 14:45 BP 138/54 L 05/10/22 14:45 Pulse Ox 97 05/10/22 14:45 O2 Del Method 05/10/22 14:45 BMI result Body Mass Index 26.9 Const: Other: Somnolent but arousable Resp: Other: Clear to auscultation bilaterally no rales rhonchi or wheezes Cardio: Other: No S4; positive S1-S2; no S3 murmurs rubs or gallops GI: Other: Soft nontender nondistended normoactive bowel sounds. Percutaneous cholecystostomy tube present Extrem: Other: No edema bilaterally Results Labs 05/10/22 10:49 05/10/22 11:48 Labs: Laboratory Results - last 24 hr 05/10/22 05/10/22 05/10/22 10:49 10:49 11:48 MCV 104.7 H MCH 31.8 MCHC 30.3 L RDW 19.5 H Plt Count 180 MPV 11.0 Immature Gran % (Auto) 0.8 H Neut % (Auto) 84.5 H Lymph % (Auto) 9.4 L [place] % (Auto) 3.6 Eos % (Auto) 1.3 Baso % (Auto) 0.4 Lymph # (Auto) 0.7 L [place] # (Auto) 0.3 Eos # (Auto) 0.1 Baso # (Auto) 0.0 Abs Immat Gran (auto) 0.06 H Absolute Neuts (auto) 6.6 Absolute Nucleated RBC 0.020 H Nucleated RBC % (auto) 0.3 H PT 13.4 H INR 1.2 H VBG pH VBG pCO2 VBG pO2 VBG HCO3 VBG O2 Saturation VBG Base Excess Anion Gap 18 Estim Creat Clear Calc 16.9 Estimated GFR 26 Fasting Glucose 189 H Calcium 8.5 Magnesium 1.9 Total Bilirubin 0.6 AST 31 ALT 19 Alkaline Phosphatase 97 Troponin I High Sens B-Natriuretic Peptide Total Protein 5.8 L Albumin 2.4 L 05/10/22 05/10/22 05/10/22 13:02 14:32 14:32 MCV MCH MCHC RDW Plt Count MPV Immature Gran % (Auto) Neut % (Auto) Lymph % (Auto) [place] % (Auto) Eos % (Auto) Baso % (Auto) Lymph # (Auto) [place] # (Auto) Eos # (Auto) Baso # (Auto) Abs Immat Gran (auto) Absolute Neuts (auto) Absolute Nucleated RBC Nucleated RBC % (auto) PT INR VBG pH VBG pCO2 VBG pO2 VBG HCO3 VBG O2 Saturation VBG Base Excess Anion Gap Estim Creat Clear Calc Estimated GFR Fasting Glucose Calcium 8.6 Magnesium Total Bilirubin AST ALT Alkaline Phosphatase Troponin I High Sens 26.1 D B-Natriuretic Peptide 2975 H Total Protein Albumin 05/10/22 14:35 MCV MCH MCHC RDW Plt Count MPV Immature Gran % (Auto) Neut % (Auto) Lymph % (Auto) [place] % (Auto) Eos % (Auto) Baso % (Auto) Lymph # (Auto) [place] # (Auto) Eos # (Auto) Baso # (Auto) Abs Immat Gran (auto) Absolute Neuts (auto) Absolute Nucleated RBC Nucleated RBC % (auto) PT INR VBG pH 7.43 VBG pCO2 39 VBG pO2 211 VBG HCO3 26 VBG O2 Saturation 99.0 VBG Base Excess 2.3 Anion Gap Estim Creat Clear Calc Estimated GFR Fasting Glucose Calcium Magnesium Total Bilirubin AST ALT Alkaline Phosphatase Troponin I High Sens B-Natriuretic Peptide Total Protein Albumin Imaging Radiologist's Impressions: Impressions Chest X-Ray 05/10/22 13:45 IMPRESSION: Increase in size of right pleural effusion which is small to moderate in size. Possible mild pulmonary vascular congestion. Head CT 05/10/22 13:51 IMPRESSION: No substantial change when compared to prior imaging from 03/10/2022. There is a chronic right cerebellar infarct and chronic watershed infarcts within the left cerebral hemisphere. Numerous chronic small vessel ischemic changes are visualized within the periventricular white matter. Grossly no evidence of acute territorial infarct or hemorrhage. Assessment and Plan (1) Acute alteration in mental status: Status: Acute (2) Atrial fibrillation: Status: Acute (3) Anemia of chronic disease: Status: Acute (4) ESRD (end stage renal disease) on dialysis: Status: Acute Plan 76yo M with ESRD on HD, DM2, recent R BKA presenting with acute abdominal pain and found to have acute cholecystitis; wound dehiscence right stump 1.Acute cholecystitis with cholelithiasis -continues with cholecystostomy tube -drain serosanguineous drainage 2. Stage IV sacral ulcer -continue current wound care therapies 3.ESRD on HD MWF -? continue sevelamer, renal diet -Saturday dialysis -follow renals/divalents 4.Anemia(ESRD) -Procrit as per Renal 5.HTN -acceptable control on current therapies -adjust as indicated 6.DM2 -acceptable control on current therapies -continue correctional scale -adjust as indicated At this time, given negative workup it is likely this is a progression of his multiple issues. After discussion with daughter patient is made DNR DNI. Discuss with Renal this a.m. will approach comfort measures/palliative at home with family Time Spent With Patient Time: Total time managing care of this patient today ____ minutes. Quality Stroke Does the patient have a stroke diagnosis?: No VTE Prior VTE?: No VTE Risk Level:: Medical - moderate - high VTE Device Contraindication: Treatment Not Indicated VTE Drug Contraindication: N/A - Med Ordered
[2022-05-10 16:53] LABS: TSH reflex Free T4 3.98 uIU/mL (0.32-4.0)
[2022-05-10] MEDS: Pantoprazole Sodium 40 MG/10 ML VIAL IVPUSH (17:40)
[2022-05-10 18:26] VITALS: BP 121/55; PULSE 55; RESP 12; TEMP 35.7; O2SAT 97
[2022-05-10 18:40] LABS: Glucose, Whole Blood 200 mg/dL (60-115)
[2022-05-10] MEDS: Sevelamer Carbonate Tablet 800 MG TABLET 1600 MG PO (19:58)
[2022-05-10] MEDS: UrsodioL 300 MG CAPSULE PO (19:58)
[2022-05-10] MEDS: Ferrous Sulfate 324 MG TABLET.DR PO (19:58)
[2022-05-10] MEDS: Atorvastatin Calcium 40 MG TABLET PO (19:58)
[2022-05-10] MEDS: Insulin Lispro 100 UNIT/ML 3 ML VIAL SUBCUT (19:59)
[2022-05-10] MEDS: Heparin Sodium,Porcine 5,000 UNIT/ML VIAL 5000 UNIT SUBCUT (19:59)
[2022-05-10] MEDS: 0.9 % Sodium Chloride Flush 3 ML SYRINGE IVFLUSH (20:11)
[2022-05-10] MEDS: carvediloL 25 MG TABLET PO (20:11)
[2022-05-10 22:00] VITALS: BMI 28.6
[2022-05-11 03:34] VITALS: BP 134/64; PULSE 65; RESP 14; TEMP 36.1; O2SAT 92
[2022-05-11] MEDS: Heparin Sodium,Porcine 5,000 UNIT/ML VIAL 5000 UNIT SUBCUT ×2 (05:42→17:36)
[2022-05-11] MEDS: Pantoprazole Sodium 40 MG/10 ML VIAL IVPUSH ×2 (05:42→17:36)
[2022-05-11 07:19] LABS: Glucose, Whole Blood 121 mg/dL (60-115)
[2022-05-11 07:35] VITALS: BP 129/54; PULSE 69; RESP 16; TEMP 36.6; O2SAT 93
[2022-05-11] MEDS: Losartan Potassium 50 MG TABLET 100 MG PO (08:56)
[2022-05-11] MEDS: Ferrous Sulfate 324 MG TABLET.DR PO (08:58)
[2022-05-11] MEDS: Aspirin Enteric Coated 81 MG TABLET.DR PO (08:58)
[2022-05-11] MEDS: Fenofibrate 160 MG TABLET PO (08:58)
[2022-05-11] MEDS: UrsodioL 300 MG CAPSULE PO (08:58)
[2022-05-11] MEDS: Bumetanide 1 MG TABLET PO (08:59)
[2022-05-11] MEDS: carvediloL 25 MG TABLET PO (08:59)
[2022-05-11] MEDS: 0.9 % Sodium Chloride Flush 3 ML SYRINGE IVFLUSH ×2 (09:00→23:35)
[2022-05-11] MEDS: Sevelamer Carbonate Tablet 800 MG TABLET 1600 MG PO (09:00)
[2022-05-11] MEDS: Insulin Glargine,Hum.rec.anlog 100 UNIT/ML 10 ML VIAL 8 UNIT SUBCUT (09:33)
[2022-05-11 11:39] LABS: Glucose, Whole Blood 151 mg/dL (60-115)
--- NOTE | 2022-05-11 13:14 | MHC.CM.PN ---
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
--- NOTE | 2022-05-11 13:44 | MHC.CLN ---
NUTRITION CONSULT FOR STAGE III WOUND TO COCCYX. PATIENT WITH DM AND ESRD, ON HEMODIALYSIS. CHANGED DIET FOR RENAL PARAMETERS: DIABETIC 2000 KCAL, 2 GRAM SODIUM, LOW POTASSIUM, LOW PHOSPHORUS. ADDING ENSURE CLEAR TID TO PROMOTE WOUND HEALING. PROVIDES 720 KCALS, 24 G PROTEIN. FOLLOW FOR INTAKE AND WOUND HEALING.
[2022-05-11 13:50] VITALS: BMI 21.2
--- NOTE | 2022-05-11 16:37 | CONS_ITS ---
DATE OF SERVICE: 05/11/2022 REASON FOR CONSULTATION: Consult requested by the medical team to evaluate and help in management of patient with end-stage renal disease who has been admitted to the hospital with altered mental status. 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 He was also hypoxemic. The patient is not giving much history and most of the history was obtained from the patient medical record. He has been admitted to the hospital, and renal consult has been requested for evaluation and management of his ESRD and for dialysis needs. PAST MEDICAL HISTORY: History of anemia of chronic disease; below-knee amputation on the left side; right below-knee amputation; CVA; type 2 diabetes mellitus; history of diarrhea; ESRD on hemodialysis on Saturday, Saturday, Saturday; hypertension; hyperlipidemia; peripheral artery disease. FAMILY HISTORY: Father due to myocardial infarction. PERSONAL AND SOCIAL HISTORY: Patient lives with family and caregiver. Does not smoke. Does not use drugs. PAST SURGICAL HISTORY: Include history of eye surgery, laminectomy, bilateral BKA, history of surgery to arm, AV fistula, CABG. ALLERGIES: TO LISINOPRIL, HYDRALAZINE, HYDROCHLOROTHIAZIDE, INVOKANA, LIDOCAINE, AND PRILOCAINE. MEDICATION: At home include amlodipine, aspirin, atorvastatin, bumetanide, carvedilol, heparin, insulin, losartan, multivitamin, Protonix, ursodiol. PHYSICAL EXAMINATION: GENERAL: Patient is resting in the bed, lethargic. VITAL SIGNS: Blood pressure was 138/54, pulse 62, afebrile. HEENT: Shows pupils equal bilaterally to light. No jugular venous distention is noted. NECK: Supple. CARDIOVASCULAR SYSTEM: S1, S2 without rub. RESPIRATORY SYSTEM: Had decreased in bases. ABDOMEN: Soft. Bowel sounds normal. Bilateral BKA was noted with dressing. LABORATORY DATA: Labs done today. WBC 7.8, hemoglobin 11.5, hematocrit 37.9, platelets are 180. Troponin highly sensitive, 26. BNP 2975. Electrolyte panel is not available. IMPRESSION: 1. Elderly male with end-stage renal disease. On hemodialysis. Admitted with altered mental status. 2. Peripheral vascular disease with below-knee amputation. 3. Hypertension. 4. Secondary hyperparathyroidism. 5. Mild anemia. 6. Altered mental status. A workup as per the medical team. CT scan of the head did not show any significant changes compared to the prior imaging. 7. Patient dialysis usually Saturday, Saturday, Saturday. I have arranged for hemodialysis for the patient in the inpatient dialysis unit. We will try to remove fluid as tolerated. We will also check a set of lab work including electrolyte panel before dialysis today. 8. There is no immediate need for erythropoietin injection. Thank you for allowing me to participate in medical management of the patient. MD MIGDALIA Cruz/BETH / [id number]
--- NOTE | 2022-05-11 17:06 | P.PNIM_ITS ---
Subjective Subjective Date of Service: 05/11/22 Interval History: No acute events overnight. Remains somnolent but arousable confused Review of Systems Unable to obtain Physical Exam Vital Signs: Vital Signs: Last Vital Signs Temp 97.9 F 05/11/22 07:35 Pulse 69 05/11/22 07:35 Resp 16 05/11/22 07:35 BP 129/54 L 05/11/22 07:35 Pulse Ox 93 05/11/22 07:35 O2 Del Method 05/11/22 07:35 O2 Flow Rate 2.0 05/11/22 07:35 BMI result Body Mass Index 21.2 Const: Other: Somnolent but arousable Resp: Other: Clear to auscultation bilaterally no rales rhonchi or wheezes Cardio: Other: No S4; positive S1-S2; no S3 murmurs rubs or gallops GI: Other: Soft nontender nondistended normoactive bowel sounds. Percutaneous cholecystostomy tube present Extrem: Other: No edema bilaterally Bilateral BKA Objective Data Active Medications Acetaminophen (Acetaminophen 325 Mg Tablet) 650 mg PO Q8H PRN PRN Reason: pain Amlodipine Besylate (Amlodipine Besylate 5 Mg Tablet) 5 mg PO BEDTIME [facility]; Protocol Last Admin: 05/10/22 20:00 Dose: Not Given Documented By: CY Non-Admin Reason: low bp Aspirin (Aspirin Enteric Coated 81 Mg Tablet.) 81 mg PO DAILY [facility] Last Admin: 05/11/22 08:58 Dose: 81 mg Documented By: AMBROSE Atorvastatin Calcium (Atorvastatin Calcium 40 Mg Tablet) 40 mg PO BEDTIME [facility] Last Admin: 05/10/22 19:58 Dose: 40 mg Documented By: CY Bumetanide (Bumetanide 1 Mg Tablet) 1 mg PO DAILY [facility]; Protocol Last Admin: 05/11/22 08:59 Dose: 1 mg Documented By: AMBROSE Carvedilol (Carvedilol 25 Mg Tablet) 25 mg PO BID [facility]; Protocol Last Admin: 05/11/22 08:59 Dose: 25 mg Documented By: AMBROSE Fenofibrate (Fenofibrate 160 Mg Tablet) 160 mg PO DAILY [facility] Last Admin: 05/11/22 08:58 Dose: 160 mg Documented By: AMBROSE Ferrous Sulfate (Ferrous Sulfate 324 Mg Tablet.) 324 mg PO TID [facility] Last Admin: 05/11/22 16:39 Dose: Not Given Documented By: RUSTY Non-Admin Reason: Off unit: Dialysis Glucose (Glucose Gel 15 Gm Gel..Gram.) 15 gm PO Q15M PRN; Protocol PRN Reason: per Hypoglycemia Standing Ord. Heparin Sodium (Porcine) (Heparin Sodium,Porcine 5,000 Unit/Ml Vial) 5,000 unit SUBCUT Q12H [facility] Last Admin: 05/11/22 05:42 Dose: 5,000 unit Documented By: CY Dextrose (D10) 250 mls @ 750 mls/hr IV Q15M PRN; Protocol PRN Reason: per Hypoglycemia Standing Ord. Insulin Glargine (Insulin Glargine,Hum.Rec.Anlog 100 Unit/Ml 10 Ml Vial) 8 unit SUBCUT BID [facility] Last Admin: 05/11/22 09:33 Dose: 8 unit Documented By: AMBROSE Insulin Human Lispro (Insulin Lispro 100 Unit/Ml 3 Ml Vial) 0 unit SUBCUT QIDACHS [facility]; Protocol Last Admin: 05/11/22 12:42 Dose: Not Given Documented By: AMBROSE Non-Admin Reason: held per md. Poor appetite Losartan Potassium (Losartan Potassium 50 Mg Tablet) 100 mg PO DAILY [facility]; Protocol Last Admin: 05/11/22 08:56 Dose: 100 mg Documented By: AMBROSE Multivitamins/Vitamin C (Multivitamin Tablet) 1 tab PO DAILY [facility] Last Admin: 05/11/22 09:18 Dose: Not Given Documented By: AMBROSE Non-Admin Reason: Patient Refused Pantoprazole Sodium (Pantoprazole Sodium 40 Mg/10 Ml Vial) 40 mg IVPUSH BID@0630,1630 [facility] Last Admin: 05/11/22 05:42 Dose: 40 mg Documented By: CY Pharmacy Consult (Consult Rx Perform Med Rec) 1 each MISCELLANE ONCE PRN PRN Reason: Consult order Sevelamer Carbonate (Sevelamer Carbonate Tablet 800 Mg Tablet) 1,600 mg PO T IDWM [facility] Last Admin: 05/11/22 12:46 Dose: Not Given Documented By: AMBROSE Non-Admin Reason: Off Unit: Surgery Sodium Chloride (0.9 % Sodium Chloride Flush 3 Ml Syringe) 3 ml IVFLUSH QSHIFT [facility] Last Admin: 05/11/22 16:40 Dose: Not Given Documented By: RUSTY Non-Admin Reason: Off unit: Dialysis Ursodiol (Ursodiol 300 Mg Capsule) 300 mg PO BID [facility] Last Admin: 05/11/22 08:58 Dose: 300 mg Documented By: AMBROSE Labs 05/10/22 10:49 05/10/22 11:48 Labs: Laboratory Results - last 24 hr 05/10/22 05/10/22 05/11/22 10:49 18:35 07:12 POC Glucose 200 H 121 H Lactic Acid Cancelled 05/11/22 11:27 POC Glucose 151 H Lactic Acid Microbiology Microbiology Results: Microbiology 05/10/22 11:48 Blood Culture - Preliminary Blood - Venous No growth after 24 hours. 05/10/22 10:49 Blood Culture - Preliminary Blood - Venous No growth after 24 hours. Assessment and Plan (1) Splenic infarct: Status: Acute (2) ESRD (end stage renal disease) on dialysis: Status: Acute (3) Anemia of chronic disease: Status: Acute Plan 76yo M with ESRD on HD, DM2, recent R BKA presenting with acute abdominal pain and found to have acute cholecystitis; wound dehiscence right stump; presents with decreased saturation from [facility]. Workup without acute findings. Question natural progression of disease. Discussed with daughter patient is now DNR DNI. Question moved to palliative care 1.Acute cholecystitis with cholelithiasis -continues with cholecystostomy tube -drain serosanguineous drainage... Question removal this hospitalization 2. Stage IV sacral ulcer -continue current wound care therapies 3.ESRD on HD MWF -? continue sevelamer, renal diet -Saturday dialysis -follow renals/divalents 4.Anemia(ESRD) -Procrit as per Renal 5.HTN -acceptable control on current therapies -adjust as indicated 6.DM2 -acceptable control on current therapies -continue correctional scale -adjust as indicated At this time, given negative workup it is likely this is a progression of his multiple issues. After discussion with daughter patient is made DNR DNI. Discuss with Renal this a.m. will approach comfort measures/palliative at home with family Time Spent With Patient Time: Total time managing care of this patient today ____ minutes. Quality Stroke Does the patient have a stroke diagnosis?: No VTE Prior VTE?: No VTE Risk Level:: Medical - moderate - high VTE Device Contraindication: Treatment Not Indicated VTE Drug Contraindication: N/A - Med Ordered
[2022-05-11 17:22] VITALS: BP 97/53; PULSE 67; RESP 18; TEMP 36.6; O2SAT 90
[2022-05-11 17:25] LABS: Glucose, Whole Blood 116 mg/dL (60-115)
[2022-05-11 20:00] VITALS: RESP 16
[2022-05-11 23:05] LABS: Glucose, Whole Blood 92 mg/dL (60-115)
[2022-05-12 02:33] VITALS: BP 126/56; PULSE 67; RESP 18; TEMP 35.6; O2SAT 92
--- NOTE | 2022-05-12 06:17 | PC.NURSE ---
MD and Drafter paged patient does not appear to have respirations or heartbeat. EKG ordered to confirm asystole.
--- NOTE | 2022-05-12 06:22 | P.DS_ITS ---
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 Gradually declining. Even on the Procrit therapy. Do primary hospitalist Dr. Gagandeep Ramirez has discussed with patient's family about the patient's prognosis and patient's family made the patient DNR/DNI and subsequently transitioned to comfort measures/home hospice. Around 06:15 RN mentioned that patient appeared to have . I went in to examine the patient, patient was not responding to verbal stimuli, no corneal reflex, pupils are fixed. EKG is Asystolic Patient pronounced at 06:20 a.m. on 05/12/2022 Patient's son at bedside. Time Spent with Patient Time attestation: Total time managing care of this patient today ____ minutes. Discharge coordination time: Less than 30 minutes Quality: Safe Use of Opioids Does Pt have an Active Cancer Diagnosis on the Problem List?: No Quality: Stroke Does the patient have a stroke diagnosis?: No Physical Exam Vital Signs: Vital Signs: Last Vital Signs Temp 96.0 F L 05/12/22 02:33 Pulse 67 05/12/22 02:33 Resp 18 05/12/22 02:33 BP 126/56 L 05/12/22 02:33 Pulse Ox 92 05/12/22 02:33 O2 Del Method 05/12/22 02:33 O2 Flow Rate 2 05/12/22 02:33 BMI result Body Mass Index 21.2 Around 06:15 RN called same patient was having no heartbeat, appeared to be echo Upon examination patient was/responding to the verbal stimuli; no corneal reflex noted; pupils are fixed; EKG is Asystolic DS: Data Data Completed and Pending Completed studies during hospitalization [Text1]: Procedures Detachment at Left Lower Leg, Mid, Open Approach (06/01/21) Detachment at Right Lower Leg, Mid, Open Approach (03/06/22) Drainage of Gallbladder with Drainage Device, Percutaneous Approach (03/30/22) Excision of Right Upper Leg Muscle, Open Approach (03/30/22) Performance of Urinary Filtration, Intermittent, Less than 6 Hours Per Day (03/30/22) Transfusion of Nonautologous Red Blood Cells into Peripheral Vein, Percutaneous Approach (03/06/22) Labs on day of discharge: Laboratory Results - last 24 hr 05/11/22 05/11/22 05/11/22 07:12 11:27 17:18 POC Glucose 121 H 151 H 116 H 05/11/22 23:01 POC Glucose 92 Preliminary micro results at discharge 05/10/22 11:48 Blood Culture - Preliminary Blood - Venous No growth after 24 hours. 05/10/22 10:49 Blood Culture - Preliminary Blood - Venous No growth after 24 hours. Discharge Plan Discharge Date/Time: 05/12/22 06:20 Patient Disposition: Discharge Diagnosis: AMS Referrals: Sanjana Huitron MD [Primary Care Provider] - 1 Week (call pcp office to schedule follow up appoinment) Discharge Medications: No Action (DME) diabetic shoes 9 See Rx Instructions .Route .MEDSUPPLY Qty: 1 0RF Rx Instructions: As directed (DME) Gel mattress overlay Misc See Rx Instructions .Route Qty: 1 0RF Rx Instructions: As directed atorvastatin 40 mg tablet 40 mg PO BEDTIME 90 Days Qty: 90 1RF bumetanide 1 mg tablet 1 mg PO DAILY Qty: 30 6RF fenofibrate nanocrystallized 145 mg tablet 145 mg PO DAILY Qty: 30 6RF ferrous sulfate 325 mg (65 mg iron) tablet 325 mg PO TID 30 Days Qty: 90 6RF insulin glargine U-300 conc 300 unit/mL (3 mL) insulin pen 10 unit subcut BID Qty: 6 0RF (DME) FreeStyle Lite Strips Strip See Rx Instructions .Route Qty: 100 11RF Rx Instructions: Use 1 test strip TID acetaminophen [Mapap Arthritis Pain] 650 mg tablet extended release 650 mg PO Q8H PRN (Reason: pain) 30 Days Qty: 90 1RF Virt-Caps 1 mg capsule 1 cap PO DAILY Qty: 90 1RF carvedilol 25 mg tablet 1 tab PO BID Hold Instructions: Resume on 05/02/22. aspirin 81 mg tablet,delayed release (DR/EC) 1 tab PO DAILY Hold Instructions: Resume on 05/17/22. further use as per tertiary care ursodiol 300 mg capsule 1 cap PO BID amlodipine 5 mg tablet 5 mg PO BEDTIME Hold Instructions: Resume on 05/02/22. pantoprazole [Protonix] 40 mg Recon Soln 40 mg IVPUSH BID@0630,1630 Qty: 1 0RF (DME) Blood Pressure Cuff Misc See Rx Instructions .Route Qty: 1 0RF Rx Instructions: As directed (DME) blood-glucose meter [FreeStyle Lite Meter] Kit See Rx Instructions .Route Qty: 1 0RF Rx Instructions: As directed (DME) lancets [FreeStyle Lancets] 28 gauge misc See Rx Instructions .Route Qty: 100 10RF Rx Instructions: Use 1 lancet once a day sevelamer carbonate 800 mg tablet 1,600 mg PO TIDWM (DME) blood pressure monitor Kit See Rx Instructions .Route Qty: 1 0RF Rx Instructions: As directed losartan 100 mg tablet 100 mg PO DAILY Hold Instructions: Resume on 05/02/22. Discharge Date/Time: 05/12/22 08:27
--- NOTE | 2022-05-12 06:45 | PC.NURSE ---
Organ bank contacted and denied patient.
--- NOTE | 2022-05-12 08:20 | PC.NURSE ---
Confirmed with daughter Margo De Jesus that home is [address] in [place].
== END 2022-05-12 08:27 | disposition expired | DRG 444 ==
LOC: HO.ED 11:18 → HO.EDOVER 17:01 → HO.S3 17:14
PROVIDERS: Admitting Provider Hospitalist; Emergency Provider Emergency Medicine Emergency Medical Services; PCP Internal Medicine; Visit Provider Family Medicine
DX: K80.00 Calculus of gallbladder with acute cholecystitis without obstruction (principal); G93.41 Metabolic encephalopathy; L89.154 Pressure ulcer of sacral region, stage 4; N18.6 End stage renal disease; I12.0 Hypertensive chronic kidney disease with stage 5 chronic kidney disease or end stage renal disease; D63.1 Anemia in chronic kidney disease; E78.2 Mixed hyperlipidemia; I25.10 Atherosclerotic heart disease of native coronary artery without angina pectoris; E11.51 Type 2 diabetes mellitus with diabetic peripheral angiopathy without gangrene; Z66 Do not resuscitate; E11.22 Type 2 diabetes mellitus with diabetic chronic kidney disease; Z20.822 Contact with and (suspected) exposure to COVID-19; Z95.1 Presence of aortocoronary bypass graft; T87.81 Dehiscence of amputation stump; Z89.512 Acquired absence of left leg below knee; Z51.5 Encounter for palliative care; D73.5 Infarction of spleen; Z86.73 Personal history of transient ischemic attack (TIA), and cerebral infarction without residual deficits; Z99.2 Dependence on renal dialysis; Z88.8 Allergy status to other drugs, medicaments and biological substances; Z79.4 Long term (current) use of insulin; Z79.82 Long term (current) use of aspirin; Z79.899 Other long term (current) drug therapy; Y83.5 Amputation of limb(s) as the cause of abnormal reaction of the patient, or of later complication, without mention of misadventure at the time of the procedure; Y92.9 Unspecified place or not applicable
CPT/HCPCS: 0241U; 36415; 70450; 71045; 80053; 82310; 82803; 82947; 83605; 83735; 83880; 84443; 84484; 85025; 85610; 87040; 90935; 93005; 99285; J1643